=== PATIENT | male | born 1960 | race Caucasian/White ===

== ENCOUNTER 2017-05-27 03:43 | Inpatient (IN) | payer OTHER, MEDICAID, SELFPAY ==
[2017-05-27] VITALS (40 sets, daily range): BP systolic 87–177; BP diastolic 57–86; PULSE 62–99; RESP 12–32; TEMP 36.2–39.4; O2SAT 94–100; BMI 30.7; BMI 29.1; BMI 29.2
--- NOTE | 2017-05-27 03:46 | NURSING ---
RN CALLED FOR EKG, PULLED OLD EKG'S FOR
--- NOTE | 2017-05-27 04:02 | RAD_ITS ---
STUDY: X-RAY CHEST REASON FOR EXAM: Male, 56 years old. Shortness of breath, chest TECHNIQUE: Single AP portable view of the chest. COMPARISON: 05/18/2017. 03/13/2015. FINDINGS: Endotracheal tube tip is superior to the terrence, stable left dual-lead subclavian approach pacemaker, stable low lung volume. There is increased compression of basilar parenchyma bilaterally. The diaphragmatic contour left is indistinct. There is no demonstrated pleural abnormality. Normal size heart. Normal mediastinum and julissa. Normal visualized pulmonary arteries. Normal visualized aortic arch and descending thoracic aorta. Normal visualized thoracic spine. Normal visualized ribs, clavicles, and shoulders. Air distended bowel inferior to the diaphragms. RAD/Chest 1 View (Portable) IMPRESSION: Stable low lung volume. Compression of basilar parenchyma appears increased when compared to previous examination, an inflammatory/infectious process such as pneumonia is not excluded. Electronically Signed: Jenna Paula MD at 4:41 EST , Service support ,
--- NOTE | 2017-05-27 04:02 | EKG12_ITS ---
Test Reason : SOB Blood Pressure : / mmHG Vent. Rate : 075 BPM Atrial Rate : 075 BPM P-R Int : 182 ms QRS Dur : 166 ms QT Int : 412 ms P-R-T Axes : 002 264 036 degrees QTc Int : 460 ms Atrial-sensed ventricular-paced rhythm Abnormal ECG Confirmed by STACY CARROLL ([id number]), commissioning editor BRANDY ROSENBERG ([id number]) on 05/29/2017 12:07:51 PM Referred By: NIKKO Confirmed By:STACY CARROLL
[2017-05-27] MEDS: fentaNYL 100 MCG/2 ML Ampul 50 MCG IV ×3 (04:29→06:17)
[2017-05-27] MEDS: 0.9% Normal Saline 1,000 ML 150 ML IV ×2 (04:29→08:09)
[2017-05-27 04:31] LABS: International Normalized Ratio 1.1; Prothrombin Time (Protime)PT. 13.9 SECONDS (11.7-14.9)
[2017-05-27 04:32] LABS: Partial Thromboplast Time 32.9 Seconds (24.1-36.2)
[2017-05-27 04:38] LABS: Bacteria 0 SEEN /hpf (None Seen); Mucous, Urine 0 SEEN /hpf (<or=2+); Red Blood Cells-Urine 0 SEEN /hpf (0-5); White Blood Cells 0 SEEN /hpf (0-5)
[2017-05-27 04:39] LABS: Absolute Lymphocyte Count 0.86 X10^3/ul (0.83-4.51); Absolute Neutrophil Count 12.3 X10^3/uL (2.0-7.7); Basophil# 0.02 X10^3/uL; Basophil% 0.1 % (0-1); Eosinophil# 0.01 X10^3/uL; Eosinophils% 0.1 % (0-5); Hematocrit 43.1 % (40-54); Hemoglobin 14.3 g/dl (13.0-16.5); Lymphocyte # 0.86 X10^3/ul (4.0); Lymphocyte % 6.2 % (19-41); Mean Corp Hgb Conc 33.2 g/gl (32-36); Mean Corpuscular Hgb 25.9 pg (27.0-32.0); Mean Corpuscular Volume 78.1 fL (80-94); Mean Platelet Vol. 9.6 fl (6.2-12.0); Monocyte# 0.69 X10^3/uL; Neutrophil # 12.28 X10^3/uL (2.7-7.7); Neutrophil % 88.3 % (47-70); Platelet Count 328 K/mm3 (150-450); RBC Distribution Width CV 16.5 % (11.6-14.6); RBC Distribution Width SD 46.5 fl (35.1-43.9); Red Blood Count 5.52 M/mm3 (4.6-6.2); White Blood Count 13.9 K/mm3 (4.4-11.0)
[2017-05-27 04:41] LABS: Color, Urine Yellow (Yellow); Glucose, Dipstick Normal (Normal); Ketone-Dipstick 50 mg/dl (Negative); Leukocyte Esterase-Dipstick Negative /ul (Negative); Nitrite-Dipstick Negative (Negative); Occult Blood-Urine Negative /ul (Negative); Protein-Dipstick Negative (Negative); Urine Bilirubin Dipstick Negative (Negative); Urine Clarity Sl. Cloudy (Clear); Urine Urobilinogen Normal (Normal)
[2017-05-27 04:47] LABS: POSITIVE COUNT NO; POSITIVE DIFFERENTIAL NO; POSITIVE MORPHOLOGY NO
[2017-05-27] MEDS: Acetaminophen 325 MG Tablet 650 MG PO (04:52)
[2017-05-27 05:05] LABS: Squamous Epithelial Cells - UA 0-5 SEEN /hpf (0-5)
[2017-05-27 05:23] LABS: ALB/GLOB Ratio 0.7 RATIO (0.9-2.4); AST(SGOT) 26 U/L (15-37); Alanine Aminotransfer ALT/SGPT 26 U/L (12-78); Albumin, Serum 3.2 g/dL (3.4-5.0); Alkaline Phosphatase 82 U/L (45-117); Anion Gap 13 (5-15); BUN 6 mg/dL (7-18); Calcium,Total 8.8 mg/dL (8.5-10.1); Chloride 98 mmol/L (98-107); Creatinine, Serum < 0.15 mg/dL (0.70-1.30); EST Glomerular Filtration Rate 731 mL/min (>60); Est Glom Filt Rate - Afr Amer 885 mL/min (>60); Estimated Creatinine Clearance 549.93 ml/min; Globulin 4.9 g/dL (2.2-4.2); Glucose 124 mg/dL (70-110); Potassium 4.1 mmol/L (3.5-5.1); Protein, Total 8.1 g/dL (6.4-8.2); Sodium Level 133 mmol/L (136-145)
--- NOTE | 2017-05-27 05:32 | NURSING ---
LACTIC ACID OF 2.0 REPORTED TO . VERBALIZED UNDERSTANDING
--- NOTE | 2017-05-27 05:42 | ED.DCSUM_ITS ---
- ER Visit Summary Date of Service: 05/27/17 Chief Complaint: [] Shortness of breath with right-sided chest pain History of Present Illness: The patient is a 56 M [] recently admitted to the hospital with a negative chest pain workup on the of this month. He went to bed last night and felt shortness of breath in the middle the night. The patient has been battling a respiratory infection for the last 4 days. He is on day 2 of his Z-Jose. He did ingest airborne prior to bed and his did suction quite a bit out from his trachea when he woke up this morning complaining of shortness of breath and chest discomfort. 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 History of coronary artery disease. Last echo was in 2014 showed ejection fraction of 55%. Normally he is not on his ventilator but last night he used it with oxygen. He has been having a nonproductive cough. They called the paramedics who brought him in for further evaluation. He describes right-sided sharp chest discomfort. He does take a daily aspirin and took 1 yesterday. He is on no blood thinners. No history of PE or DVT. He had a d-dimer on the that was negative. Physical Examination: [] Vital signs reviewed are temperature 102.9. Respiratory rate 32. General: Well-nourished generalized paresis secondary to muscular dystrophy. Head: Normocephalic atraumatic Eyes: Pupils equal round and reactive to light extraocular movements intact ENT: TMs clear no hemotympanum no trauma Neck: Nontender full range of motion Cardiovascular: Regular rate rhythm no murmurs normal S1-S2 Respiratory: Mild distress clear to auscultation bilaterally chest nontender Abdomen: Soft nontender nondistended normal bowel sounds no masses Back: Nontender no CVA tenderness Extremities: Nontender chronic paresis. Skin: Normal color no trauma Neuro alert oriented cranial nerves II through XII intact Test Results: [] Emergency Department Course and Treatment: [] Patient placed on the ventilator was calm down his respiratory rate nicely. EKG showed a paced rhythm at 75. Unchanged from prior. Chest x-ray shows suspected bilateral basilar pneumonias. CBC normal except white count 13.9. Chemistries normal except sodium 133. Liver function tests pending. Lites negative. Urinalysis shows nothing acute. Troponin 0 0.5. This is indeterminate. Influenza negative. Lactate 2.0. Blood cultures pending. Patient given oral Tylenol and IV fentanyl. Given IV fluids. Took aspirin at home. At this time I suspect sepsis with pneumonia and respiratory distress. The troponin is indeterminate is likely secondary to cardiac strain from his pneumonia. I have a low suspicion for pulmonary embolism. Patient will be started on antibiotics after speaking with the hospitalist and will be admitted. Patient was given oral Tylenol. Treatment Plan: [] Disposition: [] Impression: [] Healthcare associated pneumonia Respiratory failure requiring ventilation Indeterminate troponin Care time 74 minutes This note was generated with [employer] dictation software. It may contain incorrect words, spelling, and punctuation that were not noted in review of the chart prior to signing ED Disposition - Plan for ED Patient: Chief Complaint: Shortness of Breath Referrals: [facility] Doctor,Out of [Primary Care Provider] -
--- NOTE | 2017-05-27 05:43 | CT_ITS ---
STUDY: CTA CHEST REASON FOR EXAM: Male, 56 years old. Chest pain and shortness of breath. Elevated d-dimer. RADIATION DOSAGE (If Supplied By Facility): CTDIvol = ( 14.79 ) mGy, DLP = ( 555.76 ) mGycm TECHNIQUE: The examination was performed with the intravenous administration of 100 ml of Isovue 370 contrast material. Post-processing of the angiographic images was performed, with multiplanar reformation and 3D reconstruction. Individualized dose optimization techniques were used for this CT. COMPARISON: Comparison is made with prior chest radiograph done earlier in the day. FINDINGS: A tracheostomy tube is seen. Normal enhancement of the main pulmonary artery and right and left pulmonary arteries. Normal enhancement of the bilateral peripheral pulmonary arteries. There is no demonstrated pulmonary embolism. Normal thoracic aorta and visualized great vessels. There is no demonstrated aortic dissection. A left-sided dual-chamber pacemaker is seen. Normal mediastinum. Normal hilar regions. Normal visualized trachea and bronchi. Decreased lung volumes. Infiltration in both lower lobes slightly worse on the right side. Minimal increased markings in the anterior aspect of the right middle lobe. Normal pleura. Normal chest wall structures. Normal osseous structures. Normal visualized upper abdomen. CT/CTA Chest W/WO Contrast IMPRESSION: Infiltration in both lower lobes. There is no evidence of pulmonary embolism. Electronically Signed: Mikey Angeles MD at 8:01 EST Tel [phone], Service support ,
--- NOTE | 2017-05-27 06:31 | PCM.HP.STD ---
Problem List (1) Cardiomyopathy Status: Chronic Qualifiers: Cardiomyopathy type: unspecified Qualified Code(s): I42.9 - Cardiomyopathy, unspecified (2) HTN (hypertension) Status: Chronic Qualifiers: Hypertension type: unspecified Qualified Code(s): I10 - Essential (primary) hypertension (3) Irritable bowel syndrome Status: Chronic Qualifiers: Irritable bowel syndrome type: unspecified Qualified Code(s): K58.9 - Irritable bowel syndrome without diarrhea (4) History of urinary calculi Status: Chronic (5) Hereditary progressive muscular dystrophy Status: Chronic (6) Acute respiratory failure Status: Acute (7) Troponin I above reference range Status: Acute (8) Chest pain Status: Acute Qualifiers: Chest pain type: unspecified Qualified Code(s): R07.9 - Chest pain, unspecified History of Present Illness Date of Admission: 05/27/17 Chief Complaint: chest pain, shortness of breath The patient is a 56 year old male patient recently admitted on 05/18 and discharged on 05/19 for chest pain, presents to the ER by squad for acute chest pain and shortness of breath. The patient is suffering from a progressive form of muscular dystrophy. He has a cardiac pacemaker in place for known arrhythmia and cardiomyopathy. He has a tracheostomy tube in place and has not needed to use his home ventilator at until recently. Despite being on his home ventilator this evening he woke up struggling to breath with chest pain. The patient is alert and communicating although his voice is quite weak as he is on the ventilator. Troponin is now elevated at 0.51. Chest X-ray shows no definitive infiltrate however, there is blunting of costophrenic angles and WBC count is elevated. Due to the nature of his chest pain which he points to his right lower chest, a CTA of the chest was ordered and will be done on his way to transfer to the ICU. Past Medical History Past Medical History (Chronic Problems): Chronic Problems Cardiomyopathy (Chronic) HTN (hypertension) (Chronic) Irritable bowel syndrome (Chronic) History of urinary calculi (Chronic) Hereditary progressive muscular dystrophy (Chronic) Allergies No Known Allergies Allergy (Verified 05/27/17 03:49) Home Medications: Ambulatory Orders Medication Instructions Recorded Sertraline HCl [Zoloft] 50 mg PO DAILY 04/17/14 Albuterol Aerosols [Ventolin 2.5 mg INHALATION Q4H PRN #25 vial 07/01/14 Aerosols] BusPIRone [Buspar] 15 mg PO BID 07/01/14 Cholecalciferol (VIT D3) [Vitamin 2,000 unit PO DAILY 07/01/14 D3] Glycopyrrolate 1.5 mg PO BID 07/01/14 Lisinopril [Zestril] 5 mg PO DAILY 07/01/14 Montelukast [Singulair] 10 mg PO DAILY 08/11/14 Morphine Sulfate [Morphine Sulfate 30 mg PO BID 08/11/14 ER] Opium Tincture 0.4 ml GT QODAY 08/11/14 Aspirin [Aspirin, Baby] 81 mg PO DAILY@0800 03/09/15 Cyclobenzaprine [Flexeril] 10 mg PO TID PRN PRN 03/09/15 Hydrocodone/Acetaminophen 1 each PO TID PRN PRN 03/09/15 [Hydrocodon-Acetaminophn 10-325] Senna [Senokot] 1 tablet PO BID 03/09/15 Pantoprazole Sodium [Protonix] 40 mg PO DAILY #90 tab 05/19/17 Surgical History: noncontributory Smoking Status: Never smoker - *Family History Maternal History Items: No pertinent history Paternal History Items: No pertinent history Review of Systems Constitutional: Reports: Chills, Malaise, Weakness, Fatigue. Denies: Fever, Weight Change HEENT: Denies: Head Aches, Sinus Congestion, Sinus Drainage Cardiovascular: Reports: Chest Pain. Denies: Palpitations Respiratory: Reports: Shortness of breath at rest, Sputum production. Denies: Cough Gastrointestinal: Denies: Abdominal Pain, Nausea, Vomiting Genitourinary: Denies: Dysuria Musculoskeletal: Denies: Joint Pain, Joint Tenderness Skin: Denies: Rash, Wounds Neurological: Denies: Numbness, Tingling, Focal weakness Psychiatric: Reports: Anxiety. Denies: Depression, Homicidal Ideations, Suicidal Ideations Hematologic/ Lymphatic: Denies: Easy Bruising, Easy Bleeding VTE Information - Inpt Only VTE Present on Admission: No - CTA ordered and result pending at admission VTE Mechan Device Prophylaxis: None VTE Pharm Prophylaxis ordered?: Yes - Physical Exam General: Alert, Oriented x3, Cooperative, - - trach in place on ventilator HEENT: Atraumatic, Normocephalic Neck: Supple Lungs: Normal air movement, No rhonchi, No wheeze, No rales, - - coarse lung sounds Cardiovascular: Regular rate, Normal S1, Normal S2, No murmurs Abdomen: Bowel Sounds Present, Soft, Non Tender, Obese Extremities: No edema Skin: No rashes Musculoskeletal: No Tenderness to Palpation of Joints or Extremities Neurological: Neuro grossly intact Psych/Mental Status: Normal Affect, Appropriate Vital Signs Temp Pulse Resp BP Pulse Ox 102.9 F H 62 17 120/78 96 05/27/17 03:44 05/27/17 06:20 05/27/17 06:20 05/27/17 06:20 05/27/17 06:20 Oxygen Flow Rate 0 Oxygen Delivery Method Mechanical Ventilator Weight: 207 lb 10.807 oz Body Mass Index (BMI) 30.7 Microbiology Past 72 Hours 05/27/17 04:00 Influenza Types A,B Direct FA (FCO) - Final Mucosa - Nose Laboratory Tests Past 24 Hrs 05/27/17 05/27/17 05/27/17 04:15 04:15 04:15 WBC 13.9 H RBC 5.52 Hgb 14.3 Hct 43.1 MCV 78.1 L MCH 25.9 L MCHC 33.2 RDW 16.5 H RDW Differential 46.5 H Plt Count 328 MPV 9.6 Immature Gran % (Auto) 0.300 Neut % (Auto) 88.3 H Lymph % (Auto) 6.2 L [place] % (Auto) 5.0 Eos % (Auto) 0.1 Baso % (Auto) 0.1 Absolute Neuts (auto) 12.3 H Absolute Lymphs (auto) 0.86 Total Counted Not Reportable PT 13.9 INR 1.1 APTT 32.9 Sodium Cancelled Potassium Cancelled Chloride Cancelled Carbon Dioxide Cancelled Anion Gap Cancelled BUN Cancelled Creatinine Cancelled Estim Creat Clear Calc Cancelled Est GFR (MDRD) Af Amer Cancelled Est GFR (MDRD) Non-Af Cancelled BUN/Creatinine Ratio Cancelled Glucose Cancelled Lactic Acid Calcium Cancelled Total Bilirubin Cancelled AST Cancelled ALT Cancelled Alkaline Phosphatase Cancelled Troponin I Cancelled Total Protein Cancelled Albumin Cancelled Globulin Cancelled Albumin/Globulin Ratio Cancelled Urine Color Urine Clarity Urine pH Ur Specific [place] Urine Protein Urine Glucose (UA) Urine Ketones Urine Occult Blood Urine Nitrite Urine Bilirubin Urine Urobilinogen Ur Leukocyte Esterase Urine RBC Urine WBC Ur Squamous Epith Cells Urine Bacteria Urine Mucus 05/27/17 05/27/17 05/27/17 04:15 04:32 04:45 WBC RBC Hgb Hct MCV MCH MCHC RDW RDW Differential Plt Count MPV Immature Gran % (Auto) Neut % (Auto) Lymph % (Auto) [place] % (Auto) Eos % (Auto) Baso % (Auto) Absolute Neuts (auto) Absolute Lymphs (auto) Total Counted PT INR APTT Sodium 133 L Potassium 4.1 Chloride 98 Carbon Dioxide 22.0 Anion Gap 13 BUN 6 L Creatinine < 0.15 L Estim Creat Clear Calc 549.93 Est GFR (MDRD) Af Amer 885 Est GFR (MDRD) Non-Af 731 BUN/Creatinine Ratio TNP Glucose 124 H Lactic Acid Cancelled Calcium 8.8 Total Bilirubin 0.60 AST 26 ALT 26 Alkaline Phosphatase 82 Troponin I 0.51 H Total Protein 8.1 Albumin 3.2 L Globulin 4.9 H Albumin/Globulin Ratio 0.7 L Urine Color Yellow Urine Clarity Sl. Cloudy Urine pH 6.0 Ur Specific [place] 1.010 Urine Protein Negative Urine Glucose (UA) Normal Urine Ketones 50 H Urine Occult Blood Negative Urine Nitrite Negative Urine Bilirubin Negative Urine Urobilinogen Normal Ur Leukocyte Esterase Negative Urine RBC 0 SEEN Urine WBC 0 SEEN Ur Squamous Epith Cells 0-5 SEEN Urine Bacteria 0 SEEN Urine Mucus 0 SEEN 05/27/17 04:45 WBC RBC Hgb Hct MCV MCH MCHC RDW RDW Differential Plt Count MPV Immature Gran % (Auto) Neut % (Auto) Lymph % (Auto) [place] % (Auto) Eos % (Auto) Baso % (Auto) Absolute Neuts (auto) Absolute Lymphs (auto) Total Counted PT INR APTT Sodium Potassium Chloride Carbon Dioxide Anion Gap BUN Creatinine Estim Creat Clear Calc Est GFR (MDRD) Af Amer Est GFR (MDRD) Non-Af BUN/Creatinine Ratio Glucose Lactic Acid 2.0 Calcium Total Bilirubin AST ALT Alkaline Phosphatase Troponin I Total Protein Albumin Globulin Albumin/Globulin Ratio Urine Color Urine Clarity Urine pH Ur Specific [place] Urine Protein Urine Glucose (UA) Urine Ketones Urine Occult Blood Urine Nitrite Urine Bilirubin Urine Urobilinogen Ur Leukocyte Esterase Urine RBC Urine WBC Ur Squamous Epith Cells Urine Bacteria Urine Mucus Assessment/Plan Assessment - Chest Pain - acute respiratory failure Chronic Problems Cardiomyopathy (Chronic) HTN (hypertension) (Chronic) Irritable bowel syndrome (Chronic) History of urinary calculi (Chronic) Hereditary progressive muscular dystrophy (Chronic) Plan - admit to ICU. Continue ventilator support - initiate Vancomycin and Zosyn and plan to de-escalate antibiotics in a reasonable period of time - CBC, BMP, repeat chest X-ray in am - continue current home ventilator setting - Breathing treatments prn (Duo neb) - Consult ICU pit laborer - cycle cardiac enzymes. Patient has a stable bundle branch block and a pacemaker making interpretation of EKG for acute changes difficult - start with prophylactic Lovenox dose, may change if CTA chest indicates otherwise - continue routine home medications - current vent set at rate 15, TV 500, FIO2 of 30% and PEEP of 12 Code Visit Inpatient E&M: 68078 Init Hosp L3
--- NOTE | 2017-05-27 07:02 | NURSING ---
ICU 7 ACUTE RESP FAILURE, KALI JOHNSTON
--- NOTE | 2017-05-27 08:05 | PN_ITS ---
Subjective: Patient was seen and examined in the ICU. Admitted just this morning. Patient complains of chest discomfort, denies any nausea or dizziness or palpitations. Vitals reviewed and noted fevers more than 100.6 F. Labs reviewed, noted elevated troponins Vitals/I&O's: Vital Signs Temp Pulse Resp BP Pulse Ox 100 F H 65 20 H 120/79 97 05/27/17 06:46 05/27/17 07:00 05/27/17 07:00 05/27/17 07:00 05/27/17 07:00 Oxygen Delivery Method Mechanical Ventilator Weight: 89.3 kg Body Mass Index (BMI) 29.1 General: Alert, Oriented x3, Cooperative HEENT: Atraumatic, PERRLA, EOMI, Normocephalic Oral: Dry Mucosa Neck: Supple, No JVD, Negative Carotid Bruits, - - Tracheostomy Lungs: Normal air movement, Diminished Cardiovascular: Regular rate, Regular Rhythm, Normal S1, Normal S2, No murmurs Abdomen: Bowel Sounds Present, Soft, Non Tender, Non-Distended, No Hepato- splenomegaly Extremities: No edema Skin: No rashes Musculoskeletal: No Tenderness to Palpation of Joints or Extremities Neurological: Cranial nerves II-XII grossly intact Psych/Mental Status: Normal Affect, Appropriate Laboratory Results 05/27/17 07:45: MRSA (PCR) Pending Current Medications Aspirin (Aspirin, Baby) 81 mg PO DAILY@0800 [facility] Buspirone HCl (Buspar) [address] [facility] Cholecalciferol (Vitamin D) 2,[address] [facility] Cyclobenzaprine HCl (Flexeril) 10 mg PO TID PRN PRN PRN Reason: SPASMS Glycopyrrolate (Robinul) 1.[address] [facility] Sodium Chloride () 1,000 mls @ 150 mls/hr IV .Q6H40M [facility] Last Admin: 05/27/17 04:29 Dose: 150 mls/hr Vancomycin HCl 2,000 mg/ (Sodium Chloride) 540 mls @ 250 mls/hr IV X1 ONE Stop: 05/27/17 08:29 Piperacillin Sod/Tazobactam Sod (Zosyn) 3.375 gm in 50 mls @ 12.5 mls/hr IV Q8 [facility] Vancomycin HCl 1,500 mg/ (Dextrose) 280 mls @ 250 mls/hr IV RX TO DOSE ONE Stop: 05/27/17 08:54 Lisinopril (Zestril) [address] [facility] Magnesium Hydroxide (Milk Of Magnesia) 30 ml PO DAILY PRN PRN PRN Reason: Constipation Montelukast Sodium (Singulair) [address] [facility] Morphine Sulfate (Morphine) 2 - 4 mg IV Q3H PRN PRN PRN Reason: Severe Pain (pain scale 6-10) Morphine Sulfate (Morphine) 1 - 2 mg IV Q4H PRN PRN PRN Reason: Moderate Pain (pain scale 4-5) Non-Formulary Medication (Morphine Sulfate [Morphine Sulfate Er]) [address] [facility] Ondansetron HCl (Zofran) 4 mg IV Q8H PRN PRN PRN Reason: NAUSEA Pantoprazole Sodium (Protonix) [address] [facility] Senna (Senokot) [address] [facility] Sertraline HCl (Zoloft) [address] [facility] Assessment/Plan 56 year old M with a past medical history of hereditary progressive muscular dystrophy, cardiomyopathy, tracheostomy, s/p pacemaker, hypertension, chronic pain syndrome (narcotic dependent) recently admitted on 05/18/2017 and discharged on 05/19/2017 with chest pain. Patient is reported currently on Z- Jose for upper respiratory infection. Comes in to the ED with complaints of chest pain and respiratory distress. The EMS was called to his house with patient's was found suctioning tracheostomy. 1. Chest pain, likely cardiac vs HCAP. Troponins are elevated, CT of the chest shows bilateral infiltrates worse on the right, suspect possible aspiration pneumonia also, admitted to the ICU, vitals are stable for temperature of more than 100.6F, WBC elevated at 13.9, on aspirin, vancomycin. Influenza screen negative, blood cultures, urine cultures, urine streptococcal antigen are pending Plan: Continue management in the ICU, trend troponins, continue vancomycin, and zosyn, speech therapy consult, monitor vitals closely 2. Elevated troponins, likely due to demand ischemia, last 2D echo was normal, would monitor with repeat EKG and troponins, will get cardiology involved if troponins continue to be elevated 3. Hypertension, controlled, on lisinopril, will continue to monitor with holding parameters for systolic blood pressure less than 110 4. Status post pacemaker 5. Status post tracheostomy, on mechanical ventilation, further recommendations and management by plaster machine operator 6. Progressive hereditary muscular dystrophy 7. DVT PPx - Lovenox SC
--- NOTE | 2017-05-27 08:08 | EKG12_ITS ---
Test Reason : CP Blood Pressure : / mmHG Vent. Rate : 070 BPM Atrial Rate : 096 BPM P-R Int : 000 ms QRS Dur : 192 ms QT Int : 492 ms P-R-T Axes : 052 265 069 degrees QTc Int : 531 ms AV dual-paced rhythm Abnormal ECG When compared with ECG of 27-MAY-2017 03:44, MANUAL COMPARISON REQUIRED, DATA IS UNCONFIRMED Confirmed by STACY CARROLL ([id number]), writer editor BRANDY ROSENBERG ([id number]) on 05/29/2017 2:12:56 PM Referred By: KEVIN Confirmed By:STACY CARROLL
[2017-05-27] MEDS: 0.9% NaCl Peripheral Flush Adult/Peds IV ×3 (09:39→23:57)
--- NOTE | 2017-05-27 10:06 | CASEMGMT ---
See RN CM Assessment. DC PLAN: DC PLAN: return home on discharge. Pt has home ventilator, Home health through [facility]. Per nurse, they provide 64 hours/week of personal and nursing care, including ventilator management while works. On dc, they request notification of discharge and fax dc summary. PH: FX: -A.Onofre PAYNEN SHANNAN ACM
[2017-05-27 10:21] LABS: M R Staph aureus DNA By PCR Negative (Negative); Probe Check PASS; Specimen Processing Control PASS
[2017-05-27] MEDS: Chlorhexidine 15 ML PO ×2 (11:11→21:48)
[2017-05-27] MEDS: Aspirin 300 MG Suppository RECTAL (11:52)
[2017-05-27] MEDS: Piperacil/Tazobactam 3.375 GM/50 ML ML IV ×2 (13:04→21:47)
--- NOTE | 2017-05-27 16:23 | PCM.CON.CC ---
Problem List (1) Cardiomyopathy Status: Chronic Qualifiers: Cardiomyopathy type: unspecified Qualified Code(s): I42.9 - Cardiomyopathy, unspecified (2) HTN (hypertension) Status: Chronic Qualifiers: Hypertension type: unspecified Qualified Code(s): I10 - Essential (primary) hypertension (3) Irritable bowel syndrome Status: Chronic Qualifiers: Irritable bowel syndrome type: unspecified Qualified Code(s): K58.9 - Irritable bowel syndrome without diarrhea (4) History of urinary calculi Status: Chronic (5) Hereditary progressive muscular dystrophy Status: Chronic (6) Acute respiratory failure Status: Acute (7) Troponin I above reference range Status: Acute (8) Chest pain Status: Acute Qualifiers: Chest pain type: unspecified Qualified Code(s): R07.9 - Chest pain, unspecified Reason for Consult Date of Consultation: 05/27/17 - Late entry Reason for Consultation: Respiratory failure History of Present Illness: The patient is a 56 year old M, with past medical history listed below, who presented to [facility] on 05/27/2017 secondary to being continued shortness of breath. 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 At that time, patient decided to do an outpatient workup. However, upon going home patient had initiated trilogy therapy and over the last 2 days states that he was unable to take it off. Patient's voice was weak, but he was able to tolerate minimal vocalization with balloon inflated. A chest x-ray was obtained in the ER that was not showing a definitive infiltrate. Patient obtained a CT scan on the way to the intensive care unit. The CT scan was personally reviewed and does show bilateral infiltrates. Patient does report URI type symptoms. Patient reports worsening of baseline myopathy. Patient denies any recent change in diet except for an inability to eat secondary to a continuous need for ventilatory support limiting his ability to eat. Patient does report generalized body aches. No obvious bleeding has been reported. Patient reports similar type presentation approximately 3 years ago. Patient was hospitalized for a week and did require LTAC placement. Patient has been at home and relatively well until recent complications. Patient does have a pacemaker, but is unclear if he has any cardiomyopathy. Patient has been using a trilogy ventilator at home for several years without complication. Past Medical History Past Medical History (Chronic Problems): Chronic Problems Cardiomyopathy (Chronic) HTN (hypertension) (Chronic) Irritable bowel syndrome (Chronic) History of urinary calculi (Chronic) Hereditary progressive muscular dystrophy (Chronic) Allergies No Known Allergies Allergy (Verified 05/27/17 03:49) Home Medications: Ambulatory Orders Medication Instructions Recorded Sertraline HCl [Zoloft] 50 mg PO DAILY 04/17/14 Albuterol Aerosols [Ventolin 2.5 mg INHALATION Q4H PRN #25 vial 07/01/14 Aerosols] BusPIRone [Buspar] 15 mg PO BID 07/01/14 Cholecalciferol (VIT D3) [Vitamin 2,000 unit PO DAILY 07/01/14 D3] Glycopyrrolate 1.5 mg PO BID 07/01/14 Lisinopril [Zestril] 5 mg PO DAILY 07/01/14 Montelukast [Singulair] 10 mg PO DAILY 08/11/14 Morphine Sulfate [Morphine Sulfate 30 mg PO BID 08/11/14 ER] Opium Tincture 0.4 ml GT QODAY 08/11/14 Aspirin [Aspirin, Baby] 81 mg PO DAILY@0800 03/09/15 Cyclobenzaprine [Flexeril] 10 mg PO TID PRN PRN 03/09/15 Hydrocodone/Acetaminophen 1 each PO TID PRN PRN 03/09/15 [Hydrocodon-Acetaminophn 10-325] Senna [Senokot] 1 tablet PO BID 03/09/15 Pantoprazole Sodium [Protonix] 40 mg PO DAILY #90 tab 05/19/17 Surgical History: noncontributory Smoking Status: Never smoker - *Family History Maternal History Items: No pertinent history Paternal History Items: No pertinent history Review of Systems Comment: The HPI, otherwise negative ?10 systems. Objective: Echocardiogram completed in 2015 did show preserved ejection fraction of 55%. CT scan was personally reviewed. This did show bilateral infiltrates. - Physical Exam General: Alert, Cooperative, No apparent distress, - - Appears older than stated age. Very weak voice. Good ventilator synchrony. HEENT: Atraumatic, PERRLA, EOMI, Normocephalic, - - No scleral icterus or injection noted. Oral: Moist Mucosa, No Gingival or Mucosal Lesions/ Ulcerations Neck: Supple, No JVD, No Nodes, Trachea Midline, - - Tracheostomy is clean, dry and intact. No surrounding erythema is appreciated. Lungs: No rhonchi, No wheeze, No rales, Diminished, - - Fair effort Cardiovascular: Regular rate, Regular Rhythm, Normal S1, Normal S2, No murmurs, No rub noted, No Gallop Abdomen: Bowel Sounds Present, Soft, Non Tender, Non-Distended, Obese Extremities: No clubbing, No cyanosis, Capillary Refill Less than 3 Seconds, Edema Skin: No rashes, No breakdown Musculoskeletal: Muscle Wasting Lymphatic: No Cervical, Supraclavicular, or Inguinal Adenopathy Neurological: - - Minimal movement of extremities. Toes do move independently. Actively tracks around the room. Positive gag and cough reflex is noted. Psych/Mental Status: Normal Affect, Appropriate Vital Signs Temp Pulse Resp BP Pulse Ox 36.5 C L 68 13 103/62 99 05/27/17 14:00 05/27/17 15:30 05/27/17 15:30 05/27/17 15:00 05/27/17 15:30 Oxygen Delivery Method Mechanical Ventilator Weight: 89.3 kg Body Mass Index (BMI) 29.1 Intake and Output for Last 24 Hours 05/25/17 05/26/17 05/27/17 23:59 23:59 23:59 Intake Total 671 / 671 Balance 671 / 671 Laboratory Tests Past 24 Hrs 05/27/17 05/27/17 05/27/17 07:45 08:40 12:40 Troponin I 1.40 H* 1.05 H* MRSA (PCR) Negative Laboratory Tests 05/27/17 05/27/17 05/27/17 04:15 04:15 04:15 WBC 13.9 H RBC 5.52 Hgb 14.3 Hct 43.1 MCV 78.1 L MCH 25.9 L MCHC 33.2 RDW 16.5 H RDW Differential 46.5 H Plt Count 328 MPV 9.6 Immature Gran % (Auto) 0.300 Neut % (Auto) 88.3 H Lymph % (Auto) 6.2 L Gilmer % (Auto) 5.0 Eos % (Auto) 0.1 Baso % (Auto) 0.1 Absolute Neuts (auto) 12.3 H Absolute Lymphs (auto) 0.86 Total Counted Not Reportable PT 13.9 INR 1.1 APTT 32.9 Sodium Cancelled Potassium Cancelled Chloride Cancelled Carbon Dioxide Cancelled Anion Gap Cancelled BUN Cancelled Creatinine Cancelled Estim Creat Clear Calc Cancelled Est GFR (MDRD) Af Amer Cancelled Est GFR (MDRD) Non-Af Cancelled BUN/Creatinine Ratio Cancelled Glucose Cancelled Lactic Acid Calcium Cancelled Total Bilirubin Cancelled AST Cancelled ALT Cancelled Alkaline Phosphatase Cancelled Troponin I Cancelled Total Protein Cancelled Albumin Cancelled Globulin Cancelled Albumin/Globulin Ratio Cancelled Urine Color Urine Clarity Urine pH Ur Specific Bentley Urine Protein Urine Glucose (UA) Urine Ketones Urine Occult Blood Urine Nitrite Urine Bilirubin Urine Urobilinogen Ur Leukocyte Esterase Urine RBC Urine WBC Ur Squamous Epith Cells Urine Bacteria Urine Mucus MRSA (PCR) 05/27/17 05/27/17 05/27/17 04:15 04:32 04:45 WBC RBC Hgb Hct MCV MCH MCHC RDW RDW Differential Plt Count MPV Immature Gran % (Auto) Neut % (Auto) Lymph % (Auto) Gilmer % (Auto) Eos % (Auto) Baso % (Auto) Absolute Neuts (auto) Absolute Lymphs (auto) Total Counted PT INR APTT Sodium 133 L Potassium 4.1 Chloride 98 Carbon Dioxide 22.0 Anion Gap 13 BUN 6 L Creatinine < 0.15 L Estim Creat Clear Calc 549.93 Est GFR (MDRD) Af Amer 885 Est GFR (MDRD) Non-Af 731 BUN/Creatinine Ratio TNP Glucose 124 H Lactic Acid Cancelled Calcium 8.8 Total Bilirubin 0.60 AST 26 ALT 26 Alkaline Phosphatase 82 Troponin I 0.51 H Total Protein 8.1 Albumin 3.2 L Globulin 4.9 H Albumin/Globulin Ratio 0.7 L Urine Color Yellow Urine Clarity Sl. Cloudy Urine pH 6.0 Ur Specific Bentley 1.010 Urine Protein Negative Urine Glucose (UA) Normal Urine Ketones 50 H Urine Occult Blood Negative Urine Nitrite Negative Urine Bilirubin Negative Urine Urobilinogen Normal Ur Leukocyte Esterase Negative Urine RBC 0 SEEN Urine WBC 0 SEEN Ur Squamous Epith Cells 0-5 SEEN Urine Bacteria 0 SEEN Urine Mucus 0 SEEN MRSA (PCR) 05/27/17 05/27/17 05/27/17 04:45 07:45 08:40 WBC RBC Hgb Hct MCV MCH MCHC RDW RDW Differential Plt Count MPV Immature Gran % (Auto) Neut % (Auto) Lymph % (Auto) Gilmer % (Auto) Eos % (Auto) Baso % (Auto) Absolute Neuts (auto) Absolute Lymphs (auto) Total Counted PT INR APTT Sodium Potassium Chloride Carbon Dioxide Anion Gap BUN Creatinine Estim Creat Clear Calc Est GFR (MDRD) Af Amer Est GFR (MDRD) Non-Af BUN/Creatinine Ratio Glucose Lactic Acid 2.0 Calcium Total Bilirubin AST ALT Alkaline Phosphatase Troponin I 1.40 H* Total Protein Albumin Globulin Albumin/Globulin Ratio Urine Color Urine Clarity Urine pH Ur Specific Bentley Urine Protein Urine Glucose (UA) Urine Ketones Urine Occult Blood Urine Nitrite Urine Bilirubin Urine Urobilinogen Ur Leukocyte Esterase Urine RBC Urine WBC Ur Squamous Epith Cells Urine Bacteria Urine Mucus MRSA (PCR) Negative 05/27/17 12:40 WBC RBC Hgb Hct MCV MCH MCHC RDW RDW Differential Plt Count MPV Immature Gran % (Auto) Neut % (Auto) Lymph % (Auto) Gilmer % (Auto) Eos % (Auto) Baso % (Auto) Absolute Neuts (auto) Absolute Lymphs (auto) Total Counted PT INR APTT Sodium Potassium Chloride Carbon Dioxide Anion Gap BUN Creatinine Estim Creat Clear Calc Est GFR (MDRD) Af Amer Est GFR (MDRD) Non-Af BUN/Creatinine Ratio Glucose Lactic Acid Calcium Total Bilirubin AST ALT Alkaline Phosphatase Troponin I 1.05 H* Total Protein Albumin Globulin Albumin/Globulin Ratio Urine Color Urine Clarity Urine pH Ur Specific Bentley Urine Protein Urine Glucose (UA) Urine Ketones Urine Occult Blood Urine Nitrite Urine Bilirubin Urine Urobilinogen Ur Leukocyte Esterase Urine RBC Urine WBC Ur Squamous Epith Cells Urine Bacteria Urine Mucus MRSA (PCR) Clinical Impression(s) from Imaging Studies Chest X-Ray 05/27/17 04:02 IMPRESSION: Stable low lung volume. Compression of basilar parenchyma appears increased when compared to previous examination, an inflammatory/infectious process such as pneumonia is not excluded. Electronically Signed: Jenna Paula MD at 4:41 EST , Service support , Chest CTA 05/27/17 05:43 IMPRESSION: Infiltration in both lower lobes. There is no evidence of pulmonary embolism. Electronically Signed: Mikey Angeles MD at 8:01 EST Tel [phone], Service support , Assessment/Plan RECOMMENDATIONS: 1. Await razo culture, continue empiric antibiotics 2. No vancomycin required secondary to negative swab 3. Continue baseline blood pressure medications 4. Breaks off ventilator as tolerated 5. Aggressive PT/OT/ST 6. Wean oxygen as tolerated IMPRESSIONS: 1. Acute on chronic respiratory failure secondary to progressive muscular dystrophy/pneumonia CT scan of the chest does show bilateral infiltrates. Patient also has a leukocytosis and reported fever on presentation. Patient had a nasal swab that was negative for MRSA, so vancomycin is likely not necessary. Patient is on broad-spectrum antibiotics otherwise. Cultures are currently pending. Continue mechanical support overnight. Attempt breaks as tolerated tomorrow morning. Patient will need aggressive PT/OT/ST given his underlying Hewitt's muscular dystrophy. Steroids are not likely necessary as patient has not had a history of obstructive lung disease and this would exacerbate patient's underlying myopathy. 2. Type II non-ST elevation IN No reported hypoxemia, but patient does present requiring continuous mechanical ventilation, which is different than his baseline. Patient has had a pacemaker [place] [address] Sanchez. Troponins appear to be trending down. Defer to hospitalist on whether Dr. Lopez should see the patient again. Patient may benefit from heart catheterization in the future. 3. Depression/hypertension/chronic pain syndrome/debility Dr. Brown care, management, recovery and prognosis. Likely okay to continue with baseline medications. Code Visit Inpatient E&M: 68012 Init Hosp L3
[2017-05-28] VITALS (42 sets, daily range): BP systolic 94–144; BP diastolic 54–86; PULSE 62–85; RESP 10–24; TEMP 36.3–36.9; O2SAT 97–100
[2017-05-28] MEDS: Ipratropium/Albuterol Sulfate 3 ML AMPUL.NEB INHALATION ×3 (00:14→20:26)
--- NOTE | 2017-05-28 03:58 | NURSING ---
Offered to perform trach care at this time. Patient communicated he only does trach care once a day and refuses trach care at this time, stating he will wait until during the day for trach care to be done.
[2017-05-28] MEDS: 0.9% NaCl Peripheral Flush Adult/Peds IV ×4 (04:11→11:07)
[2017-05-28] MEDS: 0.9% Normal Saline 1,000 ML 75 ML IV (04:12)
[2017-05-28 04:30] LABS: Hemoglobin 11.6 g/dl (13.0-16.5); Mean Corp Hgb Conc 31.4 g/gl (32-36); Mean Corpuscular Hgb 24.9 pg (27.0-32.0); Mean Corpuscular Volume 79.6 fL (80-94); Mean Platelet Vol. 9.2 fl (6.2-12.0); Platelet Count 215 K/mm3 (150-450); RBC Distribution Width CV 15.9 % (11.6-14.6); Red Blood Count 4.65 M/mm3 (4.6-6.2); Scan Indicated on CBC? Y/N NO; White Blood Count 10.2 K/mm3 (4.4-11.0)
--- NOTE | 2017-05-28 04:30 | NURSING ---
This RN noted patient has only voided 75 mLs for this shift. This RN asked patient multiple times throughout the night if he needed to urinate, patient responded no. He stated that he does not pee much at home. This RN suggested a bladder scan, patient refused.
[2017-05-28 05:00] LABS: Anion Gap 14 (5-15); BUN 8 mg/dL (7-18); Calcium,Total 8.1 mg/dL (8.5-10.1); Chloride 103 mmol/L (98-107); Creatinine, Serum < 0.15 mg/dL (0.70-1.30); EST Glomerular Filtration Rate 731 mL/min (>60); Est Glom Filt Rate - Afr Amer 885 mL/min (>60); Glucose 70 mg/dL (70-110); Potassium 3.3 mmol/L (3.5-5.1); Sodium Level 138 mmol/L (136-145)
[2017-05-28] MEDS: Piperacil/Tazobactam 3.375 GM/50 ML ML IV ×3 (05:13→21:03)
--- NOTE | 2017-05-28 05:55 | RAD_ITS ---
STUDY: X-RAY CHEST REASON FOR EXAM: Male, 56 years old. Shortness of breath. TECHNIQUE: Single AP portable view of the chest. COMPARISON: Comparison is made with prior study dated May 27, 2017. FINDINGS: A tracheostomy tube is in situ. The tip is at 6.7 cm proximal to the terrence. EKG electrodes are seen. Persistent atelectasis and/or infiltrate at the left lung base. Mild increased markings at the right lung base. Small left pleural effusion. A left-sided dual-chamber pacemaker is seen. Normal mediastinum and julissa. Normal visualized pulmonary arteries. Normal visualized aortic arch and descending thoracic aorta. Normal visualized thoracic spine. Normal visualized ribs, clavicles, and shoulders. There is no demonstrated abnormality of the visualized soft tissue structures of the upper abdomen. RAD/Chest 1 View (Portable) IMPRESSION: Patchy left basilar infiltrate and/or atelectasis with a small left pleural effusion. Mild increased markings at the right lung base. Electronically Signed: Mikey Angeles MD at 9:21 EST Tel [phone], Service support ,
--- NOTE | 2017-05-28 08:52 | PCM.PN.HOSP ---
Subjective: Patient was seen and examined. He says his pain is not much controlled and needs something to relax. He was just medicated with 2 mg of morphine 10 minutes prior to my exam. Discussed with his nurse, patient is refusing to swallow, so not eating and not taking any p.o. pills. Is on mechanical ventilation since admission; patient was on mechanical ventilation at night at home. Denies any chest pain or fever or chills. Vitals was reviewed and was stable. Chest x-ray this morning is pending Objective: PHYSICAL EXAM: General: Alert, Oriented x3, Cooperative, obese, not pale, not jaundiced. HEENT: Atraumatic, PERRLA, EOMI, Normocephalic Oral: Dry Mucosa Neck: Supple, No JVD, Negative Carotid Bruits, - - Tracheostomy Lungs: Normal air movement, Diminished Cardiovascular: Regular rate, Regular Rhythm, Normal S1, Normal S2, No murmurs Abdomen: Bowel Sounds Present, Soft, Non Tender, Non-Distended, No Hepato-splenomegaly Extremities: No edema Skin: No rashes Musculoskeletal: No Tenderness to Palpation of Joints or Extremities Neurological: Cranial nerves II-XII grossly intact Psych/Mental Status: Normal Affect, Appropriate Vitals/I&O's: Vital Signs Temp Pulse Resp BP Pulse Ox 98.5 F 74 12 117/72 99 05/28/17 08:00 05/28/17 08:00 05/28/17 08:00 05/28/17 08:00 05/28/17 08:00 Oxygen Delivery Method Mechanical Ventilator Weight: 91.3 kg Body Mass Index (BMI) 29.1 Intake and Output for Last 24 Hours 05/26/17 05/27/17 05/28/17 23:59 23:59 23:59 Intake Total 860 / 860 1048.8 / 1048.8 Output Total 550 / 550 75 / 75 Balance 310 / 310 973.8 / 973.8 Microbiology Past 72 Hours 05/28/17 04:20 Sputum, Induced/Lukens Gram Stain - Final Laboratory Results 05/27/17 07:45: MRSA (PCR) Negative 05/27/17 08:40: Troponin I 1.40 H* 05/27/17 12:40: Troponin I 1.05 H* 05/27/17 20:40: Troponin I 0.70 H* 05/28/17 04:20: WBC 10.2, RBC 4.65, Hgb 11.6 L, Hct 37.0 L, MCV 79.6 L, MCH 24.9 L, MCHC 31.4 L, RDW 15.9 H, RDW Differential 46.0 H, Plt Count 215, MPV 9.2 05/28/17 04:20: Sodium 138, Potassium 3.3 L, Chloride 103, Carbon Dioxide 21.0, Anion Gap 14, BUN 8, Creatinine < 0.15 L, Estim Creat Clear Calc 532.04, Est GFR (MDRD) Af Amer 885, Est GFR (MDRD) Non-Af 731, BUN/Creatinine Ratio TNP, Glucose 70, Calcium 8.1 L Current Medications Albuterol/Ipratropium (Duoneb) 3 ml INHALATION Q4H.RT PRN PRN Reason: SOB &/OR WHEEZING Last Admin: 05/28/17 00:14 Dose: 3 ml Aspirin (Aspirin, Baby) 81 mg PO DAILY@0800 [facility] Last Admin: 05/27/17 09:59 Dose: Not Given Buspirone HCl (Buspirone Hcl) 15 mg PO BID [facility] Last Admin: 05/27/17 21:24 Dose: Not Given Chlorhexidine Gluconate () 15 ml PO BID [facility] Last Admin: 05/27/17 21:48 Dose: 15 ml Chlorhexidine Gluconate () 1 each TOPICAL DAILY [facility] Cholecalciferol (Vitamin D) 2,000 unit PO DAILY [facility] Last Admin: 05/27/17 12:05 Dose: Not Given Cyclobenzaprine HCl (Flexeril) 10 mg PO TID PRN PRN PRN Reason: SPASMS Diphenhydramine HCl (Benadryl) 25 mg PO X1 ONE Stop: 05/28/17 08:36 Glycopyrrolate (Robinul) 1.5 mg PO BID [facility] Last Admin: 05/27/17 21:25 Dose: Not Given Haloperidol Lactate (Haldol) 3 mg IV X1 ONE Stop: 05/28/17 08:36 Heparin Sodium (Porcine) (Heparin Na) 5,000 unit SC Q8 [facility] Last Admin: 05/28/17 05:13 Dose: 5,000 u Piperacillin Sod/Tazobactam Sod (Zosyn) 3.375 gm in 50 mls @ 12.5 mls/hr IV Q8 [facility] Last Admin: 05/28/17 05:13 Dose: 12.5 mls/hr Famotidine 20 mg/ Sodium (Chloride) 10 mls @ 300 mls/hr IV Q12 [facility] Last Admin: 05/27/17 21:47 Dose: 300 mls/hr Sodium Chloride () 1,000 mls @ 125 mls/hr IV .Q8H [facility] Last Admin: 05/28/17 06:22 Dose: Not Given Potassium Chloride (Kcl 10meq/100ml) 10 meq in 100 mls @ 100 mls/hr IV BOLUS Q1H [facility] Stop: 05/28/17 12:14 Lisinopril (Zestril) 5 mg PO DAILY [facility] Last Admin: 05/27/17 12:05 Dose: Not Given Magnesium Hydroxide (Milk Of Magnesia) 30 ml PO DAILY PRN PRN PRN Reason: Constipation Montelukast Sodium (Singulair) 10 mg PO DAILY [facility] Last Admin: 05/27/17 12:05 Dose: Not Given Morphine Sulfate (Morphine) 2 - 4 mg IV Q3H PRN PRN PRN Reason: Severe Pain (pain scale 6-10) Last Admin: 05/28/17 04:11 Dose: 2 mg Morphine Sulfate (Morphine) 1 - 2 mg IV Q4H PRN PRN PRN Reason: Moderate Pain (pain scale 4-5) Last Admin: 05/28/17 08:02 Dose: 2 mg Morphine Sulfate (Ms Contin) 30 mg PO BID [facility] Last Admin: 05/27/17 21:24 Dose: Not Given Ondansetron HCl (Zofran) 4 mg IV Q8H PRN PRN PRN Reason: NAUSEA Senna (Senokot) 1 tablet PO BID [facility] Last Admin: 05/27/17 21:25 Dose: Not Given Sertraline HCl (Zoloft) 50 mg PO DAILY [facility] Last Admin: 05/27/17 12:05 Dose: Not Given Sodium Chloride () 5 - 30 ml IV UD PRN PRN Reason: SALINE FLUSH Last Admin: 05/28/17 08:03 Dose: 10 ml Assessment/Plan 56 year old M with a past medical history of hereditary progressive muscular dystrophy, cardiomyopathy, tracheostomy, s/p pacemaker, hypertension, chronic pain syndrome (narcotic dependent) recently admitted on 05/18/2017 and discharged on 05/19/2017 with chest pain. Patient is reported currently on Z-Jose for upper respiratory infection. Admitted with complaints of chest pain and respiratory distress. The EMS was called to his house with patient's was found suctioning tracheostomy. 1. Chest pain, secondary to HCAP. Stable vitals. No fevers. Patient is asymptomatic this morning of chest pain. On Zosyn, repeat chest x-ray is pending. 2. Elevated troponins, likely due to demand ischemia, last 2D echo was normal, troponins peaked to 1.05 and are trending down, patient is asymptomatic. 3. Hypertension, controlled, on lisinopril, will continue to monitor with holding parameters for systolic blood pressure less than 110 4. Status post pacemaker 5. Status post tracheostomy, on mechanical ventilation, further recommendations and management by educational manager 6. Progressive hereditary muscular dystrophy 7. DVT PPx - Lovenox SC 8. Disposition: Possible DC in 24-48 hrs. Code Visit Inpatient E&M: 25868 Disch Hosp
--- NOTE | 2017-05-28 08:59 | PN_ITS ---
Subjective: Patient was seen and examined. He says his pain is not much controlled and needs something to relax. He was just medicated with 2 mg of morphine 10 minutes prior to my exam. Discussed with his nurse, patient is refusing to swallow, so not eating and not taking any p.o. pills. Is on mechanical ventilation since admission; patient was on mechanical ventilation at night at home. Denies any chest pain or fever or chills. Vitals was reviewed and was stable. Chest x-ray this morning is pending Objective: PHYSICAL EXAM: General: Alert, Oriented x3, Cooperative, obese, not pale, not jaundiced. HEENT: Atraumatic, PERRLA, EOMI, Normocephalic Oral: Dry Mucosa Neck: Supple, No JVD, Negative Carotid Bruits, - - Tracheostomy Lungs: Normal air movement, Diminished Cardiovascular: Regular rate, Regular Rhythm, Normal S1, Normal S2, No murmurs Abdomen: Bowel Sounds Present, Soft, Non Tender, Non-Distended, No Hepato- splenomegaly Extremities: No edema Skin: No rashes Musculoskeletal: No Tenderness to Palpation of Joints or Extremities Neurological: Cranial nerves II-XII grossly intact Psych/Mental Status: Normal Affect, Appropriate Vitals/I&O's: Vital Signs Temp Pulse Resp BP Pulse Ox 98.5 F 74 12 117/72 99 05/28/17 08:00 05/28/17 08:00 05/28/17 08:00 05/28/17 08:00 05/28/17 08:00 Oxygen Delivery Method Mechanical Ventilator Weight: 91.3 kg Body Mass Index (BMI) 29.1 Intake and Output for Last 24 Hours 05/26/17 05/27/17 05/28/17 23:59 23:59 23:59 Intake Total 860 / 860 1048.8 / 1048.8 Output Total 550 / 550 75 / 75 Balance 310 / 310 973.8 / 973.8 Microbiology Past 72 Hours 05/28/17 04:20 Sputum, Induced/Lukens Gram Stain - Final Laboratory Results 05/27/17 07:45: MRSA (PCR) Negative 05/27/17 08:40: Troponin I 1.40 H* 05/27/17 12:40: Troponin I 1.05 H* 05/27/17 20:40: Troponin I 0.70 H* 05/28/17 04:20: WBC 10.2, RBC 4.65, Hgb 11.6 L, Hct 37.0 L, MCV 79.6 L, MCH 24.9 L, MCHC 31.4 L, RDW 15.9 H, RDW Differential 46.0 H, Plt Count 215, MPV 9.2 05/28/17 04:20: Sodium 138, Potassium 3.3 L, Chloride 103, Carbon Dioxide 21.0, Anion Gap 14, BUN 8, Creatinine < 0.15 L, Estim Creat Clear Calc 532.04, Est GFR (MDRD) Af Amer 885, Est GFR (MDRD) Non-Af 731, BUN/Creatinine Ratio TNP, Glucose 70, Calcium 8.1 L Current Medications Albuterol/Ipratropium (Duoneb) 3 ml INHALATION Q4H.RT PRN PRN Reason: SOB &/OR WHEEZING Last Admin: 05/28/17 00:14 Dose: 3 ml Aspirin (Aspirin, Baby) 81 mg PO DAILY@0800 COUNT INCLUDES THE [facility] Last Admin: 05/27/17 09:59 Dose: Not Given Buspirone HCl (Buspirone Hcl) 15 mg PO BID COUNT INCLUDES THE [facility] Last Admin: 05/27/17 21:24 Dose: Not Given Chlorhexidine Gluconate () 15 ml PO BID COUNT INCLUDES THE [facility] Last Admin: 05/27/17 21:48 Dose: 15 ml Chlorhexidine Gluconate () 1 each TOPICAL DAILY COUNT INCLUDES THE [facility] Cholecalciferol (Vitamin D) 2,000 unit PO DAILY COUNT INCLUDES THE [facility] Last Admin: 05/27/17 12:05 Dose: Not Given Cyclobenzaprine HCl (Flexeril) 10 mg PO TID PRN PRN PRN Reason: SPASMS Diphenhydramine HCl (Benadryl) 25 mg PO X1 ONE Stop: 05/28/17 08:36 Glycopyrrolate (Robinul) 1.5 mg PO BID COUNT INCLUDES THE [facility] Last Admin: 05/27/17 21:25 Dose: Not Given Haloperidol Lactate (Haldol) 3 mg IV X1 ONE Stop: 05/28/17 08:36 Heparin Sodium (Porcine) (Heparin Na) 5,000 unit SC Q8 COUNT INCLUDES THE [facility] Last Admin: 05/28/17 05:13 Dose: 5,000 u Piperacillin Sod/Tazobactam Sod (Zosyn) 3.375 gm in 50 mls @ 12.5 mls/hr IV Q8 COUNT INCLUDES THE [facility] Last Admin: 05/28/17 05:13 Dose: 12.5 mls/hr Famotidine 20 mg/ Sodium (Chloride) 10 mls @ 300 mls/hr IV Q12 COUNT INCLUDES THE [facility] Last Admin: 05/27/17 21:47 Dose: 300 mls/hr Sodium Chloride () 1,000 mls @ 125 mls/hr IV .Q8H COUNT INCLUDES THE [facility] Last Admin: 05/28/17 06:22 Dose: Not Given Potassium Chloride (Kcl 10meq/100ml) 10 meq in 100 mls @ 100 mls/hr IV BOLUS Q1H COUNT INCLUDES THE [facility] Stop: 05/28/17 12:14 Lisinopril (Zestril) 5 mg PO DAILY COUNT INCLUDES THE [facility] Last Admin: 05/27/17 12:05 Dose: Not Given Magnesium Hydroxide (Milk Of Magnesia) 30 ml PO DAILY PRN PRN PRN Reason: Constipation Montelukast Sodium (Singulair) 10 mg PO DAILY COUNT INCLUDES THE [facility] Last Admin: 05/27/17 12:05 Dose: Not Given Morphine Sulfate (Morphine) 2 - 4 mg IV Q3H PRN PRN PRN Reason: Severe Pain (pain scale 6-10) Last Admin: 05/28/17 04:11 Dose: 2 mg Morphine Sulfate (Morphine) 1 - 2 mg IV Q4H PRN PRN PRN Reason: Moderate Pain (pain scale 4-5) Last Admin: 05/28/17 08:02 Dose: 2 mg Morphine Sulfate (Ms Contin) 30 mg PO BID COUNT INCLUDES THE [facility] Last Admin: 05/27/17 21:24 Dose: Not Given Ondansetron HCl (Zofran) 4 mg IV Q8H PRN PRN PRN Reason: NAUSEA Senna (Senokot) 1 tablet PO BID COUNT INCLUDES THE [facility] Last Admin: 05/27/17 21:25 Dose: Not Given Sertraline HCl (Zoloft) 50 mg PO DAILY COUNT INCLUDES THE [facility] Last Admin: 05/27/17 12:05 Dose: Not Given Sodium Chloride () 5 - 30 ml IV UD PRN PRN Reason: SALINE FLUSH Last Admin: 05/28/17 08:03 Dose: 10 ml Assessment/Plan 56 year old M with a past medical history of hereditary progressive muscular dystrophy, cardiomyopathy, tracheostomy, s/p pacemaker, hypertension, chronic pain syndrome (narcotic dependent) recently admitted on 05/18/2017 and discharged on 05/19/2017 with chest pain. Patient is reported currently on Z- Jose for upper respiratory infection. Admitted with complaints of chest pain and respiratory distress. The EMS was called to his house with patient's was found suctioning tracheostomy. 1. Chest pain, secondary to HCAP. Stable vitals. No fevers. Patient is asymptomatic this morning of chest pain. On Zosyn, repeat chest x-ray is pending. 2. Elevated troponins, likely due to demand ischemia, last 2D echo was normal, troponins peaked to 1.05 and are trending down, patient is asymptomatic. 3. Hypertension, controlled, on lisinopril, will continue to monitor with holding parameters for systolic blood pressure less than 110 4. Status post pacemaker 5. 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 Progressive hereditary muscular dystrophy 7. DVT PPx - Lovenox SC 8. Disposition: Possible DC in 24-48 hrs. Code Visit Inpatient E&M: 09861 Disch Hosp
[2017-05-28] MEDS: Bisacodyl 10 MG Suppository RECTAL (09:24)
[2017-05-28] MEDS: Haloperidol Lactate 5 MG/ML Vial 3 MG IV (10:06)
[2017-05-28] MEDS: Chlorhexidine 15 ML PO ×2 (10:10→20:57)
--- NOTE | 2017-05-28 10:34 | PCM.PN.INT ---
General: Alert, No apparent distress, Non-Cooperative, - - Obese. HEENT: Atraumatic, PERRLA, EOMI, Normocephalic, - - No scleral icterus or injection Oral: Moist Mucosa, No Gingival or Mucosal Lesions/ Ulcerations Neck: Supple, No JVD, No Nodes, Trachea Midline Lungs: No rhonchi, No wheeze, No rales, Diminished Cardiovascular: Regular rate, Regular Rhythm, Normal S1, Normal S2, No murmurs, No rub noted, No Gallop Abdomen: Bowel Sounds Present, Soft, Non Tender, Non-Distended, Obese Extremities: No clubbing, No cyanosis, Edema - Trace Skin: No rashes, No breakdown Musculoskeletal: No Tenderness to Palpation of Joints or Extremities Lymphatic: No Cervical, Supraclavicular, or Inguinal Adenopathy Neurological: Cranial nerves II-XII grossly intact, - - Global weakness Psych/Mental Status: Alert and oriented to time, place, person, mood and affect Vital Signs Temp Pulse Resp BP Pulse Ox 36.9 C 74 12 117/72 99 05/28/17 08:00 05/28/17 08:00 05/28/17 08:00 05/28/17 08:00 05/28/17 08:00 Oxygen Delivery Method Mechanical Ventilator Weight: 91.3 kg Body Mass Index (BMI) 29.1 Intake and Output for Last 24 Hours 05/26/17 05/27/17 05/28/17 23:59 23:59 23:59 Intake Total 860 / 860 1048.8 / 1048.8 Output Total 550 / 550 75 / 75 Balance 310 / 310 973.8 / 973.8 Labs (Last 48 Hours) 05/27/17 05/27/17 05/27/17 07:45 08:40 12:40 WBC RBC Hgb Hct MCV MCH MCHC RDW RDW Differential Plt Count MPV Sodium Potassium Chloride Carbon Dioxide Anion Gap BUN Creatinine Estim Creat Clear Calc Est GFR (MDRD) Af Amer Est GFR (MDRD) Non-Af BUN/Creatinine Ratio Glucose Calcium Troponin I 1.40 H* 1.05 H* MRSA (PCR) Negative 05/27/17 05/28/17 05/28/17 20:40 04:20 04:20 WBC 10.2 RBC 4.65 Hgb 11.6 L Hct 37.0 L MCV 79.6 L MCH 24.9 L MCHC 31.4 L RDW 15.9 H RDW Differential 46.0 H Plt Count 215 MPV 9.2 Sodium 138 Potassium 3.3 L Chloride 103 Carbon Dioxide 21.0 Anion Gap 14 BUN 8 Creatinine < 0.15 L Estim Creat Clear Calc 532.04 Est GFR (MDRD) Af Amer 885 Est GFR (MDRD) Non-Af 731 BUN/Creatinine Ratio TNP Glucose 70 Calcium 8.1 L Troponin I 0.70 H* MRSA (PCR) Microbiology 05/28/17 04:20 Sputum, Induced/Lukens Gram Stain - Final Clinical Impression(s) from Imaging Studies Chest X-Ray 05/27/17 04:02 IMPRESSION: Stable low lung volume. Compression of basilar parenchyma appears increased when compared to previous examination, an inflammatory/infectious process such as pneumonia is not excluded. Electronically Signed: Jenna Paula MD at 4:41 EST , Service support , Chest CTA 05/27/17 05:43 IMPRESSION: Infiltration in both lower lobes. There is no evidence of pulmonary embolism. Electronically Signed: Mikey Angeles MD at 8:01 EST Tel [phone], Service support , Chest X-Ray 05/28/17 05:55 IMPRESSION: Patchy left basilar infiltrate and/or atelectasis with a small left pleural effusion. Mild increased markings at the right lung base. Electronically Signed: Mikey Angeles MD at 9:21 EST Tel [phone], Service support , Assessment/Plan RECOMMENDATIONS: 1. Await razo culture, continue empiric antibiotics 2. No vancomycin required secondary to negative swab 3. Continue baseline blood pressure medications 4. Breaks off ventilator as tolerated 5. Aggressive PT/OT/ST 6. Encourage compliance IMPRESSIONS: 1. Acute on chronic respiratory failure secondary to progressive muscular dystrophy/pneumonia CT scan of the chest does show bilateral infiltrates. Patient also has a leukocytosis and reported fever on presentation. Patient had a nasal swab that was negative for MRSA, so vancomycin is likely not necessary. Patient is on broad-spectrum antibiotics otherwise. Cultures are currently pending. Patient continues to deny/reviews several aspects of his care. Stressed to the patient the importance of attempting ventilator breaks, p.o. medications and nutrition. Patient with variable demands when is present. 2. Type II non-ST elevation [place] No reported hypoxemia, but patient does present requiring continuous mechanical ventilation, which is different than his baseline. Patient has had a pacemaker [place] [address] Sanchez. Troponins appear to be trending down. Defer to hospitalist on whether Dr. Lopez should see the patient again. Patient may benefit from heart catheterization in the future. 3. Depression/hypertension/chronic pain syndrome/debility Complicates care, management, recovery and prognosis. Likely okay to continue with baseline medications. Patient is asking to be doped, so I do not have to feel all this pain. Patient may require evaluation for PEG placement if unable to provide p.o. nutrition as he will go into a catabolic state, which will be severely detrimental in his setting of decreased muscle mass at baseline. Code Visit Inpatient E&M: 04825 Subs Hosp L3
[2017-05-28] MEDS: Ondansetron 4 MG/2 ML Vial IV (10:41)
--- NOTE | 2017-05-28 10:53 | PN_ITS ---
General: Alert, No apparent distress, Non-Cooperative, - - Obese. HEENT: Atraumatic, PERRLA, EOMI, Normocephalic, - - No scleral icterus or injection Oral: Moist Mucosa, No Gingival or Mucosal Lesions/ Ulcerations Neck: Supple, No JVD, No Nodes, Trachea Midline Lungs: No rhonchi, No wheeze, No rales, Diminished Cardiovascular: Regular rate, Regular Rhythm, Normal S1, Normal S2, No murmurs, No rub noted, No Gallop Abdomen: Bowel Sounds Present, Soft, Non Tender, Non-Distended, Obese Extremities: No clubbing, No cyanosis, Edema - Trace Skin: No rashes, No breakdown Musculoskeletal: No Tenderness to Palpation of Joints or Extremities Lymphatic: No Cervical, Supraclavicular, or Inguinal Adenopathy Neurological: Cranial nerves II-XII grossly intact, - - Global weakness Psych/Mental Status: Alert and oriented to time, place, person, mood and affect Vital Signs Temp Pulse Resp BP Pulse Ox 36.9 C 74 12 117/72 99 05/28/17 08:00 05/28/17 08:00 05/28/17 08:00 05/28/17 08:00 05/28/17 08:00 Oxygen Delivery Method Mechanical Ventilator Weight: 91.3 kg Body Mass Index (BMI) 29.1 Intake and Output for Last 24 Hours 05/26/17 05/27/17 05/28/17 23:59 23:59 23:59 Intake Total 860 / 860 1048.8 / 1048.8 Output Total 550 / 550 75 / 75 Balance 310 / 310 973.8 / 973.8 Labs (Last 48 Hours) 05/27/17 05/27/17 05/27/17 07:45 08:40 12:40 WBC RBC Hgb Hct MCV MCH MCHC RDW RDW Differential Plt Count MPV Sodium Potassium Chloride Carbon Dioxide Anion Gap BUN Creatinine Estim Creat Clear Calc Est GFR (MDRD) Af Amer Est GFR (MDRD) Non-Af BUN/Creatinine Ratio Glucose Calcium Troponin I 1.40 H* 1.05 H* MRSA (PCR) Negative 05/27/17 05/28/17 05/28/17 20:40 04:20 04:20 WBC 10.2 RBC 4.65 Hgb 11.6 L Hct 37.0 L MCV 79.6 L MCH 24.9 L MCHC 31.4 L RDW 15.9 H RDW Differential 46.0 H Plt Count 215 MPV 9.2 Sodium 138 Potassium 3.3 L Chloride 103 Carbon Dioxide 21.0 Anion Gap 14 BUN 8 Creatinine < 0.15 L Estim Creat Clear Calc 532.04 Est GFR (MDRD) Af Amer 885 Est GFR (MDRD) Non-Af 731 BUN/Creatinine Ratio TNP Glucose 70 Calcium 8.1 L Troponin I 0.70 H* MRSA (PCR) Microbiology 05/28/17 04:20 Sputum, Induced/Lukens Gram Stain - Final Clinical Impression(s) from Imaging Studies Chest X-Ray 05/27/17 04:02 IMPRESSION: Stable low lung volume. Compression of basilar parenchyma appears increased when compared to previous examination, an inflammatory/infectious process such as pneumonia is not excluded. Electronically Signed: Jenna Paula MD at 4:41 EST , Service support , Chest CTA 05/27/17 05:43 IMPRESSION: Infiltration in both lower lobes. There is no evidence of pulmonary embolism. Electronically Signed: Mikey Angeles MD at 8:01 EST Tel [phone], Service support , Chest X-Ray 05/28/17 05:55 IMPRESSION: Patchy left basilar infiltrate and/or atelectasis with a small left pleural effusion. Mild increased markings at the right lung base. Electronically Signed: Mikey Angeles MD at 9:21 EST Tel [phone], Service support , Assessment/Plan RECOMMENDATIONS: 1. Await razo culture, continue empiric antibiotics 2. No vancomycin required secondary to negative swab 3. Continue baseline blood pressure medications 4. Breaks off ventilator as tolerated 5. Aggressive PT/OT/ST 6. Encourage compliance IMPRESSIONS: 1. Acute on chronic respiratory failure secondary to progressive muscular dystrophy/pneumonia CT scan of the chest does show bilateral infiltrates. Patient also has a leukocytosis and reported fever on presentation. Patient had a nasal swab that was negative for MRSA, so vancomycin is likely not necessary. Patient is on broad-spectrum antibiotics otherwise. Cultures are currently pending. Patient continues to deny/reviews several aspects of his care. Stressed to the patient the importance of attempting ventilator breaks, p.o. medications and nutrition. Patient with variable demands when is present. 2. Type II non-ST elevation [place] No reported hypoxemia, but patient does present requiring continuous mechanical ventilation, which is different than his baseline. Patient has had a pac[place] [address] Sanchez. Troponins appear to be trending down. Defer to hospitalist on whether Dr. Lopez should see the patient again. Patient may benefit from heart catheterization in the future. 3. Depression/hypertension/chronic pain syndrome/debility Complicates care, management, recovery and prognosis. Likely okay to continue with baseline medications. Patient is asking to be doped, so I do not have to feel all this pain. Patient may require evaluation for PEG placement if unable to provide p.o. nutrition as he will go into a catabolic state, which will be severely detrimental in his setting of decreased muscle mass at baseline. Code Visit Inpatient E&M: 00938 Subs Hosp L3
[2017-05-28] MEDS: 0.9% Normal Saline 1,000 ML 125 ML IV ×2 (12:51→20:58)
--- NOTE | 2017-05-28 17:04 | CHAPLAIN ---
Type of Pastoral Visit _x__ Initial Visit ___ Follow-up Visit ___ On-call Visit ___ General Patient Visit ___ Spiritual Assessment ___ Family Conference ___ Bereavement ___ Rapid Response ___ Code Blue ___ Other (describe below) Pastoral Care Referral From _x__ Patient _x__ Family ___ Nurse _x__ Physician ___ Animal Anatomist ___ Hydrology Teacher ___ Other (describe below) Sacrament/Intervention ___ Active listening ___ Anointing ___ Jewish ___ Bereavement ___ Communion ___ Mana exploration ___ ___ Life review _x__ Prayer ___ Reconciliation ___ Sacrament of Sick _x__ Supportive presence ___ Wedding ___ Other (describe below) Pastoral Comments DR requested visit; pt agreed to visit and gave responses through head movement and lip reading; pt has a trachea; spouse and other family member in room agreed to visit and prayers; pt expresses that he is frustrated and that I am done with this; spouse interprets that statement to mean that he really wants to be at home and not at the hospital; spouse indicates that their caustic room attendant has been available as well
[2017-05-28] MEDS: Senna Tablet 1 TABLET PO (20:47)
[2017-05-28] MEDS: Glycopyrrolate 1 MG TABLET 1.5 MG PO (20:48)
[2017-05-28] MEDS: Mag Hydrox/Al Hydrox/Simeth 30 ML UDC PO (23:01)
[2017-05-29] VITALS (49 sets, daily range): BP systolic 111–174; BP diastolic 52–124; PULSE 62–102; RESP 10–27; TEMP 36.3–36.7; O2SAT 30–100
[2017-05-29] MEDS: Mag Hydrox/Al Hydrox/Simeth 30 ML UDC PO ×2 (03:21→20:21)
[2017-05-29] MEDS: Piperacil/Tazobactam 3.375 GM/50 ML ML IV (05:49)
[2017-05-29] MEDS: 0.9% Normal Saline 1,000 ML 125 ML IV ×3 (05:49→20:08)
[2017-05-29 06:20] LABS: Absolute Lymphocyte Count 1.66 X10^3/ul (0.83-4.51); Absolute Neutrophil Count 5.6 X10^3/uL (2.0-7.7); Basophil# 0.02 X10^3/uL; Basophil% 0.3 % (0-1); Eosinophil# 0.02 X10^3/uL; Eosinophils% 0.3 % (0-5); Hematocrit 35.8 % (40-54); Hemoglobin 11.2 g/dl (13.0-16.5); Lymphocyte # 1.66 X10^3/ul (4.0); Lymphocyte % 21.3 % (19-41); Mean Corp Hgb Conc 31.3 g/gl (32-36); Mean Corpuscular Volume 79.9 fL (80-94); Mean Platelet Vol. 9.3 fl (6.2-12.0); Monocyte# 0.49 X10^3/uL; Monocyte% 6.3 % (0-10); Neutrophil # 5.59 X10^3/uL (2.7-7.7); Neutrophil % 71.5 % (47-70); Platelet Count 281 K/mm3 (150-450); RBC Distribution Width CV 16.6 % (11.6-14.6); RBC Distribution Width SD 47.5 fl (35.1-43.9); Red Blood Count 4.48 M/mm3 (4.6-6.2); White Blood Count 7.8 K/mm3 (4.4-11.0)
[2017-05-29 06:21] LABS: International Normalized Ratio 1.2; Prothrombin Time (Protime)PT. 15.1 SECONDS (11.7-14.9)
[2017-05-29] MEDS: 0.9% NaCl Peripheral Flush Adult/Peds IV ×2 (06:24→20:08)
[2017-05-29 06:29] LABS: POSITIVE COUNT NO; POSITIVE DIFFERENTIAL NO; POSITIVE MORPHOLOGY NO
[2017-05-29 06:35] LABS: Magnesium 1.6 mg/dL (1.6-2.6); Phosphorus 2.2 mg/dL (2.5-4.9)
[2017-05-29 07:12] LABS: Anion Gap 15 (5-15); BUN 3 mg/dL (7-18); Calcium,Total 8.1 mg/dL (8.5-10.1); Chloride 107 mmol/L (98-107); Creatinine, Serum < 0.15 mg/dL (0.70-1.30); EST Glomerular Filtration Rate 731 mL/min (>60); Est Glom Filt Rate - Afr Amer 885 mL/min (>60); Glucose 50 mg/dL (70-110); Potassium 4.7 mmol/L (3.5-5.1); Sodium Level 137 mmol/L (136-145)
--- NOTE | 2017-05-29 07:23 | PCM.PN.INT ---
Subjective: Patient is done okay overnight from a hemodynamic standpoint. Patient was able to come off the ventilator for a short period of time to facilitate p.o. medications. However, has not been able to take any dietary intake. Patient is currently requesting placement of a PEG tube to facilitate nutrition. Patient reports dyspnea after 3-5 minutes off of the ventilator. Patient states his pain is grossly unchanged compared to previous. General: Alert, Oriented x3, Cooperative, No apparent distress, - - Good ventilator synchrony. Able to vocalize slightly around balloon with effort. HEENT: Atraumatic, PERRLA, EOMI, Normocephalic, - - No scleral icterus or injection noted. Oral: Moist Mucosa, No Gingival or Mucosal Lesions/ Ulcerations Neck: Supple, No JVD, No Nodes, Trachea Midline, - - Tracheostomy site is clean, dry and intact. Lungs: No rhonchi, No wheeze, No rales, Diminished, - - Symmetric expansion. Cardiovascular: Regular rate, Regular Rhythm, Normal S1, Normal S2, No murmurs, No rub noted, No Gallop Abdomen: Bowel Sounds Present, Soft, Non Tender, Non-Distended, Obese Extremities: No cyanosis, Capillary Refill Less than 3 Seconds, Clubbing, Edema Skin: No rashes, No breakdown Musculoskeletal: No Tenderness to Palpation of Joints or Extremities, Muscle Wasting Lymphatic: No Cervical, Supraclavicular, or Inguinal Adenopathy Neurological: - - Grossly unchanged compared to previous Psych/Mental Status: Alert and oriented to time, place, person, mood and affect Vital Signs Temp Pulse Resp BP Pulse Ox 36.6 C 74 12 118/75 100 05/29/17 06:34 05/29/17 06:34 05/29/17 06:34 05/29/17 06:34 05/29/17 06:34 Oxygen Delivery Method Mechanical Ventilator Weight: 93.6 kg Body Mass Index (BMI) 29.1 Intake and Output for Last 24 Hours 05/27/17 05/28/17 05/29/17 23:59 23:59 23:59 Intake Total 860 / 860 3053.8 / 3053.8 1572 / 1572 Output Total 550 / 550 575 / 575 900 / 900 Balance 310 / 310 2478.8 / 2478.8 672 / 672 Labs (Last 48 Hours) 05/27/17 05/27/17 05/27/17 07:45 08:40 12:40 WBC RBC Hgb Hct MCV MCH MCHC RDW RDW Differential Plt Count MPV Immature Gran % (Auto) Neut % (Auto) Lymph % (Auto) [place] % (Auto) Eos % (Auto) Baso % (Auto) Absolute Neuts (auto) Absolute Lymphs (auto) Total Counted PT INR APTT Sodium Potassium Chloride Carbon Dioxide Anion Gap BUN Creatinine Estim Creat Clear Calc Est GFR (MDRD) Af Amer Est GFR (MDRD) Non-Af BUN/Creatinine Ratio Glucose Calcium Phosphorus Magnesium Troponin I 1.40 H* 1.05 H* MRSA (PCR) Negative 05/27/17 05/28/17 05/28/17 20:40 04:20 04:20 WBC 10.2 RBC 4.65 Hgb 11.6 L Hct 37.0 L MCV 79.6 L MCH 24.9 L MCHC 31.4 L RDW 15.9 H RDW Differential 46.0 H Plt Count 215 MPV 9.2 Immature Gran % (Auto) Neut % (Auto) Lymph % (Auto) [place] % (Auto) Eos % (Auto) Baso % (Auto) Absolute Neuts (auto) Absolute Lymphs (auto) Total Counted PT INR APTT Sodium 138 Potassium 3.3 L Chloride 103 Carbon Dioxide 21.0 Anion Gap 14 BUN 8 Creatinine < 0.15 L Estim Creat Clear Calc 532.04 Est GFR (MDRD) Af Amer 885 Est GFR (MDRD) Non-Af 731 BUN/Creatinine Ratio TNP Glucose 70 Calcium 8.1 L Phosphorus Magnesium Troponin I 0.70 H* MRSA (PCR) 05/29/17 05/29/17 05/29/17 06:00 06:00 06:00 WBC 7.8 RBC 4.48 L Hgb 11.2 L Hct 35.8 L MCV 79.9 L MCH 25.0 L MCHC 31.3 L RDW 16.6 H RDW Differential 47.5 H Plt Count 281 MPV 9.3 Immature Gran % (Auto) 0.300 Neut % (Auto) 71.5 H Lymph % (Auto) 21.3 [place] % (Auto) 6.3 Eos % (Auto) 0.3 Baso % (Auto) 0.3 Absolute Neuts (auto) 5.6 Absolute Lymphs (auto) 1.66 Total Counted Not Reportable PT 15.1 H INR 1.2 APTT 35.0 Sodium 137 Potassium 4.7 Chloride 107 Carbon Dioxide 15.0 L Anion Gap 15 BUN 3 L Creatinine < 0.15 L Estim Creat Clear Calc 532.04 Est GFR (MDRD) Af Amer 885 Est GFR (MDRD) Non-Af 731 BUN/Creatinine Ratio TNP Glucose 50 L Calcium 8.1 L Phosphorus Magnesium Troponin I MRSA (PCR) 05/29/17 06:00 WBC RBC Hgb Hct MCV MCH MCHC RDW RDW Differential Plt Count MPV Immature Gran % (Auto) Neut % (Auto) Lymph % (Auto) [place] % (Auto) Eos % (Auto) Baso % (Auto) Absolute Neuts (auto) Absolute Lymphs (auto) Total Counted PT INR APTT Sodium Potassium Chloride Carbon Dioxide Anion Gap BUN Creatinine Estim Creat Clear Calc Est GFR (MDRD) Af Amer Est GFR (MDRD) Non-Af BUN/Creatinine Ratio Glucose Calcium Phosphorus 2.2 L Magnesium 1.6 Troponin I MRSA (PCR) Microbiology 05/28/17 04:20 Sputum, Induced/Lukens Gram Stain - Final Clinical Impression(s) from Imaging Studies Chest X-Ray 05/28/17 05:55 IMPRESSION: Patchy left basilar infiltrate and/or atelectasis with a small left pleural effusion. Mild increased markings at the right lung base. Electronically Signed: Mikey Angeles MD at 9:21 EST Tel [phone], Service support , Assessment/Plan RECOMMENDATIONS: 1. Await razo culture, continue empiric antibiotics 2. Consult surgery for possible PEG placement 3. Continue baseline blood pressure medications 4. Breaks off ventilator as tolerated 5. Aggressive PT/OT/ST 6. Encourage compliance IMPRESSIONS: 1. Acute on chronic respiratory failure secondary to progressive muscular dystrophy/pneumonia CT scan of the chest does show bilateral infiltrates. Patient also has a leukocytosis and reported fever on presentation. Patient had a nasal swab that was negative for MRSA, so vancomycin is likely not necessary. Gram stain of sputum shows gram-negative rods. Await species and sensitivities. Clinical suspicion for pseudomonal infection. Patient is on appropriate antibiotics. Blood pressures have remained stable. Some concern that prolonged ventilatory support will be required secondary to decompensation of baseline muscular dystrophy. Patient will require aggressive nutritional status. Will consult surgery for possible PEG placement. Previous PEG was placed by Dr. Ash. Patient was initiated on vest therapy yesterday to help with pulmonary toileting. 2. Type II non-ST elevation [place] No reported hypoxemia, but patient does present requiring continuous mechanical ventilation, which is different than his baseline. Patient has had a pac[place] [address] Sanchez. Troponins appear to be trending down. Defer to hospitalist on whether Dr. Lopez should see the patient again. Patient may benefit from heart catheterization in the future. Troponins have trended down following optimization of hemodynamics indicating probable type II non-ST elevation [place]. 3. Depression/hypertension/chronic pain syndrome/debility Complicates care, management, recovery and prognosis. Likely okay to continue with baseline medications. Patient is asking to be doped, so I do not have to feel all this pain. Patient will likely require evaluation for PEG placement if unable to provide p.o. nutrition as he will go into a catabolic state, which will be severely detrimental in his setting of decreased muscle mass at baseline. Addendum (conscious sedation) 1730: As by Dr. Kennedy to provide anesthesia for PEG placement. Patient was given 40 mg of propofol and 50 mcg of fentanyl at 1630. There was significant difficulty in cannulating the esophagus. The patient ended up requiring a total of 380 mg of propofol and 200 mcg of fentanyl throughout the procedure. Patient tolerated it well using mechanical ventilation through the tracheostomy. No arrhythmias were noted during the case. There was some minor bleeding from the PEG site. The patient was monitored until 1720. At that time, patient was following commands. Total anesthesia time of 50 minutes. This excludes time spent earlier in the day evaluating in writing note. Code Visit Inpatient E&M: 59957 Subs Hosp L3
--- NOTE | 2017-05-29 07:31 | PN_ITS ---
Subjective: Patient is done okay overnight from a hemodynamic standpoint. Patient was able to come off the ventilator for a short period of time to facilitate p.o. medications. However, has not been able to take any dietary intake. Patient is currently requesting placement of a PEG tube to facilitate nutrition. Patient reports dyspnea after 3-5 minutes off of the ventilator. Patient states his pain is grossly unchanged compared to previous. General: Alert, Oriented x3, Cooperative, No apparent distress, - - Good ventilator synchrony. Able to vocalize slightly around balloon with effort. HEENT: Atraumatic, PERRLA, EOMI, Normocephalic, - - No scleral icterus or injection noted. Oral: Moist Mucosa, No Gingival or Mucosal Lesions/ Ulcerations Neck: Supple, No JVD, No Nodes, Trachea Midline, - - Tracheostomy site is clean , dry and intact. Lungs: No rhonchi, No wheeze, No rales, Diminished, - - Symmetric expansion. Cardiovascular: Regular rate, Regular Rhythm, Normal S1, Normal S2, No murmurs, No rub noted, No Gallop Abdomen: Bowel Sounds Present, Soft, Non Tender, Non-Distended, Obese Extremities: No cyanosis, Capillary Refill Less than 3 Seconds, Clubbing, Edema Skin: No rashes, No breakdown Musculoskeletal: No Tenderness to Palpation of Joints or Extremities, Muscle Wasting Lymphatic: No Cervical, Supraclavicular, or Inguinal Adenopathy Neurological: - - Grossly unchanged compared to previous Psych/Mental Status: Alert and oriented to time, place, person, mood and affect Vital Signs Temp Pulse Resp BP Pulse Ox 36.6 C 74 12 118/75 100 05/29/17 06:34 05/29/17 06:34 05/29/17 06:34 05/29/17 06:34 05/29/17 06:34 Oxygen Delivery Method Mechanical Ventilator Weight: 93.6 kg Body Mass Index (BMI) 29.1 Intake and Output for Last 24 Hours 05/27/17 05/28/17 05/29/17 23:59 23:59 23:59 Intake Total 860 / 860 3053.8 / 3053.8 1572 / 1572 Output Total 550 / 550 575 / 575 900 / 900 Balance 310 / 310 2478.8 / 2478.8 672 / 672 Labs (Last 48 Hours) 05/27/17 05/27/17 05/27/17 07:45 08:40 12:40 WBC RBC Hgb Hct MCV MCH MCHC RDW RDW Differential Plt Count MPV Immature Gran % (Auto) Neut % (Auto) Lymph % (Auto) [place] % (Auto) Eos % (Auto) Baso % (Auto) Absolute Neuts (auto) Absolute Lymphs (auto) Total Counted PT INR APTT Sodium Potassium Chloride Carbon Dioxide Anion Gap BUN Creatinine Estim Creat Clear Calc Est GFR (MDRD) Af Amer Est GFR (MDRD) Non-Af BUN/Creatinine Ratio Glucose Calcium Phosphorus Magnesium Troponin I 1.40 H* 1.05 H* MRSA (PCR) Negative 05/27/17 05/28/17 05/28/17 20:40 04:20 04:20 WBC 10.2 RBC 4.65 Hgb 11.6 L Hct 37.0 L MCV 79.6 L MCH 24.9 L MCHC 31.4 L RDW 15.9 H RDW Differential 46.0 H Plt Count 215 MPV 9.2 Immature Gran % (Auto) Neut % (Auto) Lymph % (Auto) [place] % (Auto) Eos % (Auto) Baso % (Auto) Absolute Neuts (auto) Absolute Lymphs (auto) Total Counted PT INR APTT Sodium 138 Potassium 3.3 L Chloride 103 Carbon Dioxide 21.0 Anion Gap 14 BUN 8 Creatinine < 0.15 L Estim Creat Clear Calc 532.04 Est GFR (MDRD) Af Amer 885 Est GFR (MDRD) Non-Af 731 BUN/Creatinine Ratio TNP Glucose 70 Calcium 8.1 L Phosphorus Magnesium Troponin I 0.70 H* MRSA (PCR) 05/29/17 05/29/17 05/29/17 06:00 06:00 06:00 WBC 7.8 RBC 4.48 L Hgb 11.2 L Hct 35.8 L MCV 79.9 L MCH 25.0 L MCHC 31.3 L RDW 16.6 H RDW Differential 47.5 H Plt Count 281 MPV 9.3 Immature Gran % (Auto) 0.300 Neut % (Auto) 71.5 H Lymph % (Auto) 21.3 [place] % (Auto) 6.3 Eos % (Auto) 0.3 Baso % (Auto) 0.3 Absolute Neuts (auto) 5.6 Absolute Lymphs (auto) 1.66 Total Counted Not Reportable PT 15.1 H INR 1.2 APTT 35.0 Sodium 137 Potassium 4.7 Chloride 107 Carbon Dioxide 15.0 L Anion Gap 15 BUN 3 L Creatinine < 0.15 L Estim Creat Clear Calc 532.04 Est GFR (MDRD) Af Amer 885 Est GFR (MDRD) Non-Af 731 BUN/Creatinine Ratio TNP Glucose 50 L Calcium 8.1 L Phosphorus Magnesium Troponin I MRSA (PCR) 05/29/17 06:00 WBC RBC Hgb Hct MCV MCH MCHC RDW RDW Differential Plt Count MPV Immature Gran % (Auto) Neut % (Auto) Lymph % (Auto) [place] % (Auto) Eos % (Auto) Baso % (Auto) Absolute Neuts (auto) Absolute Lymphs (auto) Total Counted PT INR APTT Sodium Potassium Chloride Carbon Dioxide Anion Gap BUN Creatinine Estim Creat Clear Calc Est GFR (MDRD) Af Amer Est GFR (MDRD) Non-Af BUN/Creatinine Ratio Glucose Calcium Phosphorus 2.2 L Magnesium 1.6 Troponin I MRSA (PCR) Microbiology 05/28/17 04:20 Sputum, Induced/Lukens Gram Stain - Final Clinical Impression(s) from Imaging Studies Chest X-Ray 05/28/17 05:55 IMPRESSION: Patchy left basilar infiltrate and/or atelectasis with a small left pleural effusion. Mild increased markings at the right lung base. Electronically Signed: Mikey Angeles MD at 9:21 EST Tel [phone], Service support , Assessment/Plan RECOMMENDATIONS: 1. Await razo culture, continue empiric antibiotics 2. Consult surgery for possible PEG placement 3. Continue baseline blood pressure medications 4. Breaks off ventilator as tolerated 5. Aggressive PT/OT/ST 6. Encourage compliance IMPRESSIONS: 1. Acute on chronic respiratory failure secondary to progressive muscular dystrophy/pneumonia CT scan of the chest does show bilateral infiltrates. Patient also has a leukocytosis and reported fever on presentation. Patient had a nasal swab that was negative for MRSA, so vancomycin is likely not necessary. Gram stain of sputum shows gram-negative rods. Await species and sensitivities. Clinical suspicion for pseudomonal infection. Patient is on appropriate antibiotics. Blood pressures have remained stable. Some concern that prolonged ventilatory support will be required secondary to decompensation of baseline muscular dystrophy. Patient will require aggressive nutritional status. Will consult surgery for possible PEG placement. Previous PEG was placed by Dr. Ash. Patient was initiated on vest therapy yesterday to help with pulmonary toileting. 2. Type II non-ST elevation [place] No reported hypoxemia, but patient does present requiring continuous mechanical ventilation, which is different than his baseline. Patient has had a pac[place] [address] Sanchez. Troponins appear to be trending down. Defer to hospitalist on whether Dr. Lopez should see the patient again. Patient may benefit from heart catheterization in the future. Troponins have trended down following optimization of hemodynamics indicating probable type II non-ST elevation [place]. 3. Depression/hypertension/chronic pain syndrome/debility Complicates care, management, recovery and prognosis. Likely okay to continue with baseline medications. Patient is asking to be doped, so I do not have to feel all this pain. Patient will likely require evaluation for PEG placement if unable to provide p.o. nutrition as he will go into a catabolic state, which will be severely detrimental in his setting of decreased muscle mass at baseline. Addendum (conscious sedation) 1730: As by Dr. Kennedy to provide anesthesia for PEG placement. Patient was given 40 mg of propofol and 50 mcg of fentanyl at 1630. There was significant difficulty in cannulating the esophagus. The patient ended up requiring a total of 380 mg of propofol and 200 mcg of fentanyl throughout the procedure. Patient tolerated it well using mechanical ventilation through the tracheostomy. No arrhythmias were noted during the case. There was some minor bleeding from the PEG site. The patient was monitored until 1720. At that time , patient was following commands. Total anesthesia time of 50 minutes. This excludes time spent earlier in the day evaluating in writing note. Code Visit Inpatient E&M: 34860 Subs Hosp L3
--- NOTE | 2017-05-29 09:00 | NURSING ---
Off vent briefly (max 10min) for speech eval and medications. Pt c/o being unable to breath almost immediately. SpO2 remained near 100% but chest sds significantly decreased over approx 5min. Much reassurance given to pt. returned to previous vent settings. Dr. Tonny joiner.
[2017-05-29] MEDS: Aspirin 81 MG TAB.CHEW PO (09:05)
[2017-05-29] MEDS: Glycopyrrolate 1 MG TABLET 1.5 MG PO ×2 (09:06→21:21)
[2017-05-29] MEDS: Senna Tablet 1 TABLET PO ×2 (09:06→21:21)
[2017-05-29] MEDS: Montelukast 10 MG Tablet PO (09:06)
[2017-05-29] MEDS: Lisinopril 5 MG Tablet PO (09:07)
[2017-05-29] MEDS: Sertraline 50 MG Tablet PO (09:07)
[2017-05-29] MEDS: Ipratropium/Albuterol Sulfate 3 ML AMPUL.NEB INHALATION ×2 (09:52→20:38)
[2017-05-29] MEDS: Chlorhexidine 15 ML PO ×2 (10:30→21:57)
--- NOTE | 2017-05-29 13:38 | PCM.PN.HOSP ---
Subjective: Patient was seen and examined in the company of the . Noted that patient has been on continuous mechanical ventilation via tracheostomy. Aware of request for PEG tube and discharge planning for LTAC. Objective: PHYSICAL EXAM: General: Alert, Oriented x3, Cooperative, obese, not pale, not jaundiced. HEENT: Atraumatic, PERRLA, EOMI, Normocephalic Oral: Dry Mucosa Neck: Supple, No JVD, Negative Carotid Bruits, - - Tracheostomy Lungs: Normal air movement, Diminished Cardiovascular: Regular rate, Regular Rhythm, Normal S1, Normal S2, No murmurs Abdomen: Bowel Sounds Present, Soft, Non Tender, Non-Distended, No Hepato-splenomegaly Extremities: No edema Skin: No rashes Musculoskeletal: No Tenderness to Palpation of Joints or Extremities Neurological: Cranial nerves II-XII grossly intact Psych/Mental Status: Normal Affect, Appropriate Vitals/I&O's: Vital Signs Temp Pulse Resp BP Pulse Ox 97.5 F L 75 14 136/73 H 100 05/29/17 08:00 05/29/17 11:15 05/29/17 11:15 05/29/17 08:00 05/29/17 11:15 Oxygen Delivery Method Mechanical Ventilator Weight: 93.6 kg Body Mass Index (BMI) 29.1 Intake and Output for Last 24 Hours 05/27/17 05/28/17 05/29/17 23:59 23:59 23:59 Intake Total 860 / 860 3053.8 / 3053.8 1572 / 1572 Output Total 550 / 550 575 / 575 900 / 900 Balance 310 / 310 2478.8 / 2478.8 672 / 672 Microbiology Past 72 Hours 05/28/17 04:20 Sputum, Induced/Lukens Gram Stain - Final 05/28/17 04:20 Sputum, Induced/Lukens Respiratory Culture - Preliminary GNR Poss 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 Laboratory Results 05/29/17 06:00: Sodium 137, Potassium 4.7, Chloride 107, Carbon Dioxide 15.0 L, Anion Gap 15, BUN 3 L, Creatinine < 0.15 L, Estim Creat Clear Calc 532.04, Est GFR (MDRD) Af Amer 885, Est GFR (MDRD) Non-Af 731, BUN/Creatinine Ratio TNP, Glucose 50 L, Calcium 8.1 L 05/29/17 06:00: WBC 7.8, RBC 4.48 L, Hgb 11.2 L, Hct 35.8 L, MCV 79.9 L, MCH 25.0 L, MCHC 31.3 L, RDW 16.6 H, RDW Differential 47.5 H, Plt Count 281, MPV 9.3, Immature Gran % (Auto) 0.300, Neut % (Auto) 71.5 H, Lymph % (Auto) 21.3, [place] % (Auto) 6.3, Eos % (Auto) 0.3, Baso % (Auto) 0.3, Absolute Neuts (auto) 5.6, Absolute Lymphs (auto) 1.66, Total Counted Not Reportable 05/29/17 06:00: PT 15.1 H, INR 1.2, APTT 35.0 05/29/17 06:00: Phosphorus 2.2 L, Magnesium 1.6 Current Medications Al Hydroxide/Mg Hydroxide (Mylanta Ii) 30 ml PO Q4H PRN PRN PRN Reason: DYSPEPSIA Last Admin: 05/29/17 03:21 Dose: 30 ml Albuterol/Ipratropium (Duoneb) 3 ml INHALATION Q4H.RT PRN PRN Reason: SOB &/OR WHEEZING Last Admin: 05/29/17 09:52 Dose: 3 ml Aspirin (Aspirin, Baby) 81 mg PO DAILY@0800 [facility] Last Admin: 05/29/17 09:05 Dose: 81 mg Bisacodyl (Dulcolax) 10 mg RECTAL DAILY PRN PRN PRN Reason: CONSTIPATION Last Admin: 05/28/17 09:24 Dose: 10 mg Buspirone HCl (Buspirone Hcl) 15 mg PO BID [facility] Last Admin: 05/29/17 09:05 Dose: 15 mg Chlorhexidine Gluconate () 15 ml PO BID [facility] Last Admin: 05/29/17 10:30 Dose: 15 ml Chlorhexidine Gluconate () 1 each TOPICAL DAILY [facility] Last Admin: 05/28/17 12:37 Dose: Not Given Cholecalciferol (Vitamin D) 2,000 unit PO DAILY [facility] Last Admin: 05/29/17 09:06 Dose: 2,000 unit Cyclobenzaprine HCl (Flexeril) 10 mg PO TID PRN PRN PRN Reason: SPASMS Famotidine (Pepcid) 20 mg PO BID [facility] Glycopyrrolate (Robinul) 1.5 mg PO BID [facility] Last Admin: 05/29/17 09:06 Dose: 1.5 mg Heparin Sodium (Porcine) (Heparin Na) 5,000 unit SC Q8 [facility] Last Admin: 05/29/17 05:50 Dose: 5,000 u Sodium Chloride () 1,000 mls @ 125 mls/hr IV .Q8H [facility] Last Admin: 05/29/17 05:49 Dose: 125 mls/hr Cefepime HCl 2 gm/ Sodium (Chloride) 100 mls @ 200 mls/hr IV Q8 [facility] Lisinopril (Zestril) 5 mg PO DAILY [facility] Last Admin: 05/29/17 09:07 Dose: 5 mg Magnesium Hydroxide (Milk Of Magnesia) 30 ml PO DAILY PRN PRN PRN Reason: Constipation Montelukast Sodium (Singulair) 10 mg PO DAILY [facility] Last Admin: 05/29/17 09:06 Dose: 10 mg Morphine Sulfate (Morphine) 2 - 4 mg IV Q3H PRN PRN PRN Reason: Severe Pain (pain scale 6-10) Last Admin: 05/29/17 06:18 Dose: 4 mg Morphine Sulfate (Morphine) 1 - 2 mg IV Q4H PRN PRN PRN Reason: Moderate Pain (pain scale 4-5) Last Admin: 05/29/17 11:11 Dose: 2 mg Morphine Sulfate (Ms Contin) 30 mg PO BID [facility] Last Admin: 05/29/17 10:30 Dose: 30 mg Ondansetron HCl (Zofran) 4 mg IV Q8H PRN PRN PRN Reason: NAUSEA Last Admin: 05/28/17 10:41 Dose: 4 mg Senna (Senokot) 1 tablet PO BID [facility] Last Admin: 05/29/17 09:06 Dose: 1 tablet Sertraline HCl (Zoloft) 50 mg PO DAILY [facility] Last Admin: 05/29/17 09:07 Dose: 50 mg Sodium Chloride () 5 - 30 ml IV UD PRN PRN Reason: SALINE FLUSH Last Admin: 05/29/17 06:24 Dose: 10 ml Assessment/Plan 56 year old M with a past medical history of hereditary progressive muscular dystrophy, cardiomyopathy, tracheostomy, s/p pacemaker, hypertension, chronic pain syndrome (narcotic dependent) recently admitted on 05/18/2017 and discharged on 05/19/2017 with chest pain. Patient is reported currently on Z-Jose for upper respiratory infection. Admitted with complaints of chest pain and respiratory distress. The EMS was called to his house with patient's was found suctioning tracheostomy. 1. HCAP, sputum cultures are growing gram-negative rods, staph aureus and possibly Pseudomonas, remains on cefepime IV( day 3 of antibiotics), vitals are stable, no fevers, will continue to monitor 2. Elevated troponins, likely due to type II NSTEMI/demand ischemia, last 2D echo was normal, discussed patient's case in detail and informally with Dr. Sanchez, patient would need to follow-up in the outpatient, continue on aspirin, ACEI. 3. Hypertension, controlled, on lisinopril, will continue to monitor with holding parameters for systolic blood pressure less than 110 4. Status post pacemaker 5. Status post tracheostomy, on mechanical ventilation, further recommendations and management by last sorter 6. Progressive hereditary muscular dystrophy, complicated weaning off mechanical ventilation for meals, PEG tube being arranged for feeding 7. DVT PPx - Lovenox SC 8. Disposition: Possible DC to LTAC Code Visit Inpatient E&M: 21507 Subs Hosp L3
--- NOTE | 2017-05-29 13:49 | PN_ITS ---
Subjective: Patient was seen and examined in the company of the . Noted that patient has been on continuous mechanical ventilation via tracheostomy. Aware of request for PEG tube and discharge planning for LTAC. Objective: PHYSICAL EXAM: General: Alert, Oriented x3, Cooperative, obese, not pale, not jaundiced. HEENT: Atraumatic, PERRLA, EOMI, Normocephalic Oral: Dry Mucosa Neck: Supple, No JVD, Negative Carotid Bruits, - - Tracheostomy Lungs: Normal air movement, Diminished Cardiovascular: Regular rate, Regular Rhythm, Normal S1, Normal S2, No murmurs Abdomen: Bowel Sounds Present, Soft, Non Tender, Non-Distended, No Hepato- splenomegaly Extremities: No edema Skin: No rashes Musculoskeletal: No Tenderness to Palpation of Joints or Extremities Neurological: Cranial nerves II-XII grossly intact Psych/Mental Status: Normal Affect, Appropriate Vitals/I&O's: Vital Signs Temp Pulse Resp BP Pulse Ox 97.5 F L 75 14 136/73 H 100 05/29/17 08:00 05/29/17 11:15 05/29/17 11:15 05/29/17 08:00 05/29/17 11:15 Oxygen Delivery Method Mechanical Ventilator Weight: 93.6 kg Body Mass Index (BMI) 29.1 Intake and Output for Last 24 Hours 05/27/17 05/28/17 05/29/17 23:59 23:59 23:59 Intake Total 860 / 860 3053.8 / 3053.8 1572 / 1572 Output Total 550 / 550 575 / 575 900 / 900 Balance 310 / 310 2478.8 / 2478.8 672 / 672 Microbiology Past 72 Hours 05/28/17 04:20 Sputum, Induced/Lukens Gram Stain - Final 05/28/17 04:20 Sputum, Induced/Lukens Respiratory Culture - Preliminary GNR Poss Pseudomonas sp 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 Laboratory Results 05/29/17 06:00: Sodium 137, Potassium 4.7, Chloride 107, Carbon Dioxide 15.0 L, Anion Gap 15, BUN 3 L, Creatinine < 0.15 L, Estim Creat Clear Calc 532.04, Est GFR (MDRD) Af Amer 885, Est GFR (MDRD) Non-Af 731, BUN/Creatinine Ratio TNP, Glucose 50 L, Calcium 8.1 L 05/29/17 06:00: WBC 7.8, RBC 4.48 L, Hgb 11.2 L, Hct 35.8 L, MCV 79.9 L, MCH 25.0 L, MCHC 31.3 L, RDW 16.6 H, RDW Differential 47.5 H, Plt Count 281, MPV 9.3 , Immature Gran % (Auto) 0.300, Neut % (Auto) 71.5 H, Lymph % (Auto) 21.3, [place] % (Auto) 6.3, Eos % (Auto) 0.3, Baso % (Auto) 0.3, Absolute Neuts (auto) 5.6, Absolute Lymphs (auto) 1.66, Total Counted Not Reportable 05/29/17 06:00: PT 15.1 H, INR 1.2, APTT 35.0 05/29/17 06:00: Phosphorus 2.2 L, Magnesium 1.6 Current Medications Al Hydroxide/Mg Hydroxide (Mylanta Ii) 30 ml PO Q4H PRN PRN PRN Reason: DYSPEPSIA Last Admin: 05/29/17 03:21 Dose: 30 ml Albuterol/Ipratropium (Duoneb) 3 ml INHALATION Q4H.RT PRN PRN Reason: SOB &/OR WHEEZING Last Admin: 05/29/17 09:52 Dose: 3 ml Aspirin (Aspirin, Baby) 81 mg PO DAILY@0800 [facility] Last Admin: 05/29/17 09:05 Dose: 81 mg Bisacodyl (Dulcolax) 10 mg RECTAL DAILY PRN PRN PRN Reason: CONSTIPATION Last Admin: 05/28/17 09:24 Dose: 10 mg Buspirone HCl (Buspirone Hcl) 15 mg PO BID [facility] Last Admin: 05/29/17 09:05 Dose: 15 mg Chlorhexidine Gluconate () 15 ml PO BID [facility] Last Admin: 05/29/17 10:30 Dose: 15 ml Chlorhexidine Gluconate () 1 each TOPICAL DAILY [facility] Last Admin: 05/28/17 12:37 Dose: Not Given Cholecalciferol (Vitamin D) 2,000 unit PO DAILY [facility] Last Admin: 05/29/17 09:06 Dose: 2,000 unit Cyclobenzaprine HCl (Flexeril) 10 mg PO TID PRN PRN PRN Reason: SPASMS Famotidine (Pepcid) 20 mg PO BID [facility] Glycopyrrolate (Robinul) 1.5 mg PO BID [facility] Last Admin: 05/29/17 09:06 Dose: 1.5 mg Heparin Sodium (Porcine) (Heparin Na) 5,000 unit SC Q8 [facility] Last Admin: 05/29/17 05:50 Dose: 5,000 u Sodium Chloride () 1,000 mls @ 125 mls/hr IV .Q8H [facility] Last Admin: 05/29/17 05:49 Dose: 125 mls/hr Cefepime HCl 2 gm/ Sodium (Chloride) 100 mls @ 200 mls/hr IV Q8 [facility] Lisinopril (Zestril) 5 mg PO DAILY [facility] Last Admin: 05/29/17 09:07 Dose: 5 mg Magnesium Hydroxide (Milk Of Magnesia) 30 ml PO DAILY PRN PRN PRN Reason: Constipation Montelukast Sodium (Singulair) 10 mg PO DAILY [facility] Last Admin: 05/29/17 09:06 Dose: 10 mg Morphine Sulfate (Morphine) 2 - 4 mg IV Q3H PRN PRN PRN Reason: Severe Pain (pain scale 6-10) Last Admin: 05/29/17 06:18 Dose: 4 mg Morphine Sulfate (Morphine) 1 - 2 mg IV Q4H PRN PRN PRN Reason: Moderate Pain (pain scale 4-5) Last Admin: 05/29/17 11:11 Dose: 2 mg Morphine Sulfate (Ms Contin) 30 mg PO BID [facility] Last Admin: 05/29/17 10:30 Dose: 30 mg Ondansetron HCl (Zofran) 4 mg IV Q8H PRN PRN PRN Reason: NAUSEA Last Admin: 05/28/17 10:41 Dose: 4 mg Senna (Senokot) 1 tablet PO BID [facility] Last Admin: 05/29/17 09:06 Dose: 1 tablet Sertraline HCl (Zoloft) 50 mg PO DAILY [facility] Last Admin: 05/29/17 09:07 Dose: 50 mg Sodium Chloride () 5 - 30 ml IV UD PRN PRN Reason: SALINE FLUSH Last Admin: 05/29/17 06:24 Dose: 10 ml Assessment/Plan 56 year old M with a past medical history of hereditary progressive muscular dystrophy, cardiomyopathy, tracheostomy, s/p pacemaker, hypertension, chronic pain syndrome (narcotic dependent) recently admitted on 05/18/2017 and discharged on 05/19/2017 with chest pain. Patient is reported currently on Z- Jose for upper respiratory infection. Admitted with complaints of chest pain and respiratory distress. The EMS was called to his house with patient's was found suctioning tracheostomy. 1. HCAP, sputum cultures are growing gram-negative rods, staph aureus and possibly Pseudomonas, remains on cefepime IV( day 3 of antibiotics), vitals are stable, no fevers, will continue to monitor 2. Elevated troponins, likely due to type II NSTEMI/demand ischemia, last 2D echo was normal, discussed patient's case in detail and informally with Dr. Sanchez, patient would need to follow-up in the outpatient, continue on aspirin, ACEI. 3. Hypertension, controlled, on lisinopril, will continue to monitor with holding parameters for systolic blood pressure less than 110 4. Status post pacemaker 5. Status post tracheostomy, on mechanical ventilation, further recommendations and management by college coach 6. Progressive hereditary muscular dystrophy, complicated weaning off mechanical ventilation for meals, PEG tube being arranged for feeding 7. DVT PPx - Lovenox SC 8. Disposition: Possible DC to LTAC Code Visit Inpatient E&M: 68566 Subs Hosp L3
[2017-05-29] MEDS: fentaNYL 100 MCG/2 ML Ampul 200 MCG IV (16:30)
[2017-05-29] MEDS: Propofol 200 MG/20 ML Vial 380 MG IV BOLUS (16:30)
--- NOTE | 2017-05-29 17:20 | NURSING ---
Willard Kennedy and Tonny present w/SHOVE UP and endo RN in pt room. set up for PEG tube placement. 1630 begin procedure, PEG placed and verified per Dr. Kennedy at 1720. Diprovan 380mcq and Fentanyl 200mcq given IV push
--- NOTE | 2017-05-29 20:08 | CON.PCM_ITS ---
Problem List (1) Hereditary progressive muscular dystrophy Status: Chronic (2) Acute respiratory failure Status: Acute Reason for Consult Date of Consultation: 05/29/17 History of Present Illness: The patient is a 56 year old M with a history of progressive neurological disorder resulting in chronic recurring pulmonary infections for which he now has a tracheostomy and is currently on the ventilator. The patient had a previous PEG tube placed which has been removed. he is currently back in intensive care unit on the ventilator on antibiotics. I am consulted for replacement of a PEG tube given his ventilator dependency and risk for aspiration. the patient is not on anticoagulants. Past Medical History Past Medical History (Chronic Problems): Chronic Problems Cardiomyopathy (Chronic) HTN (hypertension) (Chronic) Irritable bowel syndrome (Chronic) History of urinary calculi (Chronic) Hereditary progressive muscular dystrophy (Chronic) Allergies No Known Allergies Allergy (Verified 05/27/17 03:49) Home Medications: Ambulatory Orders Medication Instructions Recorded Sertraline HCl [Zoloft] 50 mg PO DAILY 04/17/14 Albuterol Aerosols [Ventolin 2.5 mg INHALATION Q4H PRN #25 vial 07/01/14 Aerosols] BusPIRone [Buspar] 15 mg PO BID 07/01/14 Cholecalciferol (VIT D3) [Vitamin 2,000 unit PO DAILY 07/01/14 D3] Glycopyrrolate 1.5 mg PO BID 07/01/14 Lisinopril [Zestril] 5 mg PO DAILY 07/01/14 Montelukast [Singulair] 10 mg PO DAILY 08/11/14 Morphine Sulfate [Morphine Sulfate 30 mg PO BID 08/11/14 ER] Opium Tincture 0.4 ml GT QODAY 08/11/14 Aspirin [Aspirin, Baby] 81 mg PO DAILY@0800 03/09/15 Cyclobenzaprine [Flexeril] 10 mg PO TID PRN PRN 03/09/15 Hydrocodone/Acetaminophen 1 each PO TID PRN PRN 03/09/15 [Hydrocodon-Acetaminophn 10-325] Senna [Senokot] 1 tablet PO BID 03/09/15 Pantoprazole Sodium [Protonix] 40 mg PO DAILY #90 tab 05/19/17 Surgical History: noncontributory, - - tracheostomy, EGD and PEG Smoking Status: Never smoker - *Family History Maternal History Items: No pertinent history Paternal History Items: No pertinent history Review of Systems Unable to obtain accurate/complete ROS d/t: tracheostomy - Physical Exam General: Alert, Cooperative Neck: - - tracheostomy in place Lungs: Diminished, Rhonchi Cardiovascular: Regular rate, Regular Rhythm Abdomen: Bowel Sounds Present, Soft, - - previous PEG tube site nearly in the midline just below the xiphoid Vital Signs Temp Pulse Resp BP Pulse Ox 98.1 F 78 23 H 148/85 H 100 05/29/17 16:00 05/29/17 18:28 05/29/17 18:28 05/29/17 18:28 05/29/17 18:28 Oxygen Delivery Method Mechanical Ventilator Weight: 93.6 kg Body Mass Index (BMI) 29.1 Intake and Output for Last 24 Hours 05/27/17 05/28/17 05/29/17 23:59 23:59 23:59 Intake Total 860 / 860 3053.8 / 3053.8 3363 / 3363 Output Total 550 / 550 575 / 575 5300 / 5300 Balance 310 / 310 2478.8 / 2478.8 -1937 / -1937 Microbiology Past 72 Hours 05/28/17 04:20 Gram Stain - Final Sputum, Induced/Lukens Respiratory Culture - Preliminary GNR Poss Pseudomonas sp 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 Laboratory Tests Past 24 Hrs 05/29/17 05/29/17 05/29/17 06:00 06:00 06:00 WBC 7.8 RBC 4.48 L Hgb 11.2 L Hct 35.8 L MCV 79.9 L MCH 25.0 L MCHC 31.3 L RDW 16.6 H RDW Differential 47.5 H Plt Count 281 MPV 9.3 Immature Gran % (Auto) 0.300 Neut % (Auto) 71.5 H Lymph % (Auto) 21.3 [place] % (Auto) 6.3 Eos % (Auto) 0.3 Baso % (Auto) 0.3 Absolute Neuts (auto) 5.6 Absolute Lymphs (auto) 1.66 Total Counted Not Reportable PT 15.1 H INR 1.2 APTT 35.0 Sodium 137 Potassium 4.7 Chloride 107 Carbon Dioxide 15.0 L Anion Gap 15 BUN 3 L Creatinine < 0.15 L Estim Creat Clear Calc 532.04 Est GFR (MDRD) Af Amer 885 Est GFR (MDRD) Non-Af 731 BUN/Creatinine Ratio TNP Glucose 50 L Calcium 8.1 L Phosphorus Magnesium 05/29/17 06:00 WBC RBC Hgb Hct MCV MCH MCHC RDW RDW Differential Plt Count MPV Immature Gran % (Auto) Neut % (Auto) Lymph % (Auto) [place] % (Auto) Eos % (Auto) Baso % (Auto) Absolute Neuts (auto) Absolute Lymphs (auto) Total Counted PT INR APTT Sodium Potassium Chloride Carbon Dioxide Anion Gap BUN Creatinine Estim Creat Clear Calc Est GFR (MDRD) Af Amer Est GFR (MDRD) Non-Af BUN/Creatinine Ratio Glucose Calcium Phosphorus 2.2 L Magnesium 1.6 Assessment/Plan I plan perform upper endoscopy with PEG tube placement. Consent is obtained by Dr. Jose G Lancaster, bowling floor desk clerk from the patient's . The risks, benefits, alternatives and complications have been explained. The patient is currently on IV antibiotics. He is not on anticoagulants.
--- NOTE | 2017-05-29 20:08 | PCM.OPRPT ---
Problem List (1) Hereditary progressive muscular dystrophy Status: Chronic (2) Acute respiratory failure Status: Acute Report of Operation Date of Procedure: 05/29/17 Pre-Operative Diagnosis: chronic recurrent respiratory infections, tracheostomy, need for feeding access Post-Operative Diagnosis: chronic recurrent respiratory infections, tracheostomy, need for feeding access, challenging esophageal pharyngeal entry, but otherwise unremarkable esophagus, mild gastritis, successful PEG placement Surgery/Procedure Performed:: EGD with PEG tube placement cutter and presser: None Type of Anesthesia:: IV Sedation Specimen's removed: none Description of Procedure: The patient was maintained in the intensive care unit. Sign in was performed verifying patient, site, planned procedure, critical nursing information, The patient was monitored with cardiac, pulse oximetric, and blood pressure monitoring devices. Monitored anesthetic care was provided for sedation. Following IV sedation and after the oropharynx was sprayed with Cetacaine spray, a video gastroscope was inserted in the oropharynx. due to the patient's relatively dye lab technician sedation, tongue motion, and body habitus, entry into the esophagus was initially very challenging. Jaw thrust changing head angle and finally laying the patient more in his left lateral side down. Finally allowed the gastroscope to be inserted into the upper esophagus. Following this, the endoscope was advanced down the esophagus without difficulty. The scope was advanced through the stomach, through the pylorus through the duodenum to the proximal jejunum. Following this, 2 finger breaths below the left costal margin. A site was marked. The demonstrated indentation over the anterior aspect of the body of the stomach. The site was cleaned with Betadine. Local anesthetic was injected and a needle inserted into the stomach under endoscopic guidance. A wire was placed through the needle and grasped with a snare, brought up to the oropharynx. A Ponsky pull-type tube was then affixed to the wire. A small incision made on the anterior skin and the Ponsky pull-type tube was brought to the stomach and secured to the anterior abdominal wall. The wire was cut. A buttress was placed and the catheter secured at 3 cm. A roller clamp and feeding adapter applied. Repeat upper endoscopy was performed. This demonstrated good positioning of the mushroom of the feeding tube with no signs of bleeding. The remainder of the stomach and the esophagus were unremarkable The patient tolerated the procedure well and was brought to recovery in stable condition - Admit VTE Documentation VTE Present on Admission: No
--- NOTE | 2017-05-29 20:11 | OP.PCM_ITS ---
Problem List (1) Hereditary progressive muscular dystrophy Status: Chronic (2) Acute respiratory failure Status: Acute Report of Operation Date of Procedure: 05/29/17 Pre-Operative Diagnosis: chronic recurrent respiratory infections, tracheostomy , need for feeding access Post-Operative Diagnosis: chronic recurrent respiratory infections, tracheostomy , need for feeding access, challenging esophageal pharyngeal entry, but otherwise unremarkable esophagus, mild gastritis, successful PEG placement Surgery/Procedure Performed:: EGD with PEG tube placement retail assistant manager: None Type of Anesthesia:: IV Sedation Specimen's removed: none Description of Procedure: The patient was maintained in the intensive care unit. Sign in was performed verifying patient, site, planned procedure, critical nursing information, The patient was monitored with cardiac, pulse oximetric, and blood pressure monitoring devices. Monitored anesthetic care was provided for sedation. Following IV sedation and after the oropharynx was sprayed with Cetacaine spray , a video gastroscope was inserted in the oropharynx. due to the patient's relatively statistical methods teacher sedation, tongue motion, and body habitus, entry into the esophagus was initially very challenging. Jaw thrust changing head angle and finally laying the patient more in his left lateral side down. Finally allowed the gastroscope to be inserted into the upper esophagus. Following this, the endoscope was advanced down the esophagus without difficulty. The scope was advanced through the stomach, through the pylorus through the duodenum to the proximal jejunum. Following this, 2 finger breaths below the left costal margin. A site was marked. The demonstrated indentation over the anterior aspect of the body of the stomach. The site was cleaned with Betadine. Local anesthetic was injected and a needle inserted into the stomach under endoscopic guidance. A wire was placed through the needle and grasped with a snare, brought up to the oropharynx. A Ponsky pull-type tube was then affixed to the wire. A small incision made on the anterior skin and the Ponsky pull-type tube was brought to the stomach and secured to the anterior abdominal wall. The wire was cut. A buttress was placed and the catheter secured at 3 cm. A roller clamp and feeding adapter applied. Repeat upper endoscopy was performed. This demonstrated good positioning of the mushroom of the feeding tube with no signs of bleeding. The remainder of the stomach and the esophagus were unremarkable The patient tolerated the procedure well and was brought to recovery in stable condition - Admit VTE Documentation VTE Present on Admission: No
[2017-05-29] MEDS: Famotidine 20 MG Tablet PO (21:21)
[2017-05-29] MEDS: Vital AF 1.2 Cal Liquid 1,000 ML 70 ML GT (21:31)
[2017-05-29] MEDS: Atorvastatin Calcium 20 MG Tablet PO (21:31)
[2017-05-30] VITALS (37 sets, daily range): BP systolic 92–165; BP diastolic 43–101; PULSE 0–111; RESP 10–26; TEMP 36.4–36.9; O2SAT 67–100
[2017-05-30 04:14] LABS: Absolute Lymphocyte Count 1.55 X10^3/ul (0.83-4.51); Basophil# 0.01 X10^3/uL; Basophil% 0.1 % (0-1); Eosinophil# 0.02 X10^3/uL; Eosinophils% 0.2 % (0-5); Hematocrit 35.3 % (40-54); Hemoglobin 11.2 g/dl (13.0-16.5); Lymphocyte # 1.55 X10^3/ul (4.0); Lymphocyte % 18.8 % (19-41); Mean Corp Hgb Conc 31.7 g/gl (32-36); Mean Corpuscular Hgb 25.1 pg (27.0-32.0); Mean Platelet Vol. 9.1 fl (6.2-12.0); Monocyte# 0.67 X10^3/uL; Monocyte% 8.1 % (0-10); Neutrophil # 5.99 X10^3/uL (2.7-7.7); Neutrophil % 72.6 % (47-70); Platelet Count 289 K/mm3 (150-450); RBC Distribution Width CV 16.6 % (11.6-14.6); RBC Distribution Width SD 46.7 fl (35.1-43.9); Red Blood Count 4.47 M/mm3 (4.6-6.2); White Blood Count 8.3 K/mm3 (4.4-11.0)
[2017-05-30 04:15] LABS: POSITIVE COUNT NO; POSITIVE DIFFERENTIAL NO; POSITIVE MORPHOLOGY NO
[2017-05-30] MEDS: 0.9% Normal Saline 1,000 ML 125 ML IV ×3 (04:30→23:26)
[2017-05-30 04:31] LABS: Anion Gap 15 (5-15); BUN 2 mg/dL (7-18); Calcium,Total 7.9 mg/dL (8.5-10.1); Chloride 110 mmol/L (98-107); Creatinine, Serum < 0.15 mg/dL (0.70-1.30); EST Glomerular Filtration Rate 731 mL/min (>60); Est Glom Filt Rate - Afr Amer 885 mL/min (>60); Glucose 86 mg/dL (70-110); Magnesium 1.4 mg/dL (1.6-2.6); Phosphorus 1.7 mg/dL (2.5-4.9); Potassium 3.3 mmol/L (3.5-5.1); Sodium Level 139 mmol/L (136-145)
--- NOTE | 2017-05-30 06:45 | PCM.PN.INT ---
Subjective: Patient did well overnight. Patient did have a PEG tube placed yesterday at the bedside and tolerated well. Patient has been initiated on medications through the PEG with significant improvement in pain control. Patient continues to refuse multiple therapies including vest therapy, CPAP trials, etc. Patient with no complaints at this time. General: Alert, Cooperative, No apparent distress, - - Appears older than stated age. Obese. HEENT: Atraumatic, PERRLA, EOMI, Normocephalic, - - Slight injection without icterus Oral: Moist Mucosa, No Gingival or Mucosal Lesions/ Ulcerations Neck: Supple, No JVD, No Nodes, Trachea Midline, - - Trach is clean, dry and intact. Lungs: No rhonchi, No wheeze, No rales, Diminished, - - Symmetric expansion. No dullness to percussion. Cardiovascular: Normal S1, Normal S2, No murmurs, Irregular Rate, No rub noted, No Gallop, - - Periodic paced beats noted. Abdomen: Bowel Sounds Present, Soft, Non Tender, Non-Distended, Obese, - - PEG is clean, dry and intact. Extremities: No clubbing, No cyanosis, Capillary Refill Less than 3 Seconds, Edema Skin: - - No significant change compared to previous Musculoskeletal: No Tenderness to Palpation of Joints or Extremities, Muscle Wasting Lymphatic: No Cervical, Supraclavicular, or Inguinal Adenopathy Neurological: - - Grossly unchanged compared to previous Psych/Mental Status: Flat Affect, Depressed Vital Signs Temp Pulse Resp BP Pulse Ox 36.9 C 81 18 121/67 H 100 05/30/17 04:00 05/30/17 06:00 05/30/17 06:00 05/30/17 06:00 05/30/17 06:00 Oxygen Delivery Method Mechanical Ventilator Weight: 91.7 kg Body Mass Index (BMI) 29.1 Intake and Output for Last 24 Hours 05/28/17 05/29/17 05/30/17 23:59 23:59 23:59 Intake Total 3053.8 / 3053.8 3483 / 3483 2008 Output Total 575 / 575 5300 / 5300 2575 / 2575 Balance 2478.8 / 2478.8 -1817 / -1817 -566 / -566 Labs (Last 48 Hours) 05/29/17 05/29/17 05/29/17 06:00 06:00 06:00 WBC 7.8 RBC 4.48 L Hgb 11.2 L Hct 35.8 L MCV 79.9 L MCH 25.0 L MCHC 31.3 L RDW 16.6 H RDW Differential 47.5 H Plt Count 281 MPV 9.3 Immature Gran % (Auto) 0.300 Neut % (Auto) 71.5 H Lymph % (Auto) 21.3 [place] % (Auto) 6.3 Eos % (Auto) 0.3 Baso % (Auto) 0.3 Absolute Neuts (auto) 5.6 Absolute Lymphs (auto) 1.66 Total Counted Not Reportable PT 15.1 H INR 1.2 APTT 35.0 Sodium 137 Potassium 4.7 Chloride 107 Carbon Dioxide 15.0 L Anion Gap 15 BUN 3 L Creatinine < 0.15 L Estim Creat Clear Calc 532.04 Est GFR (MDRD) Af Amer 885 Est GFR (MDRD) Non-Af 731 BUN/Creatinine Ratio TNP Glucose 50 L Calcium 8.1 L Phosphorus Magnesium 05/29/17 05/30/17 05/30/17 06:00 03:55 03:55 WBC 8.3 RBC 4.47 L Hgb 11.2 L Hct 35.3 L MCV 79.0 L MCH 25.1 L MCHC 31.7 L RDW 16.6 H RDW Differential 46.7 H Plt Count 289 MPV 9.1 Immature Gran % (Auto) 0.200 Neut % (Auto) 72.6 H Lymph % (Auto) 18.8 L [place] % (Auto) 8.1 Eos % (Auto) 0.2 Baso % (Auto) 0.1 Absolute Neuts (auto) 6.0 Absolute Lymphs (auto) 1.55 Total Counted Not Reportable PT INR APTT Sodium 139 Potassium 3.3 L Chloride 110 H Carbon Dioxide 14.0 L Anion Gap 15 BUN 2 L Creatinine < 0.15 L Estim Creat Clear Calc 532.04 Est GFR (MDRD) Af Amer 885 Est GFR (MDRD) Non-Af 731 BUN/Creatinine Ratio TNP Glucose 86 Calcium 7.9 L Phosphorus 2.2 L 1.7 L Magnesium 1.6 1.4 L Microbiology 05/28/17 04:20 Sputum, Induced/Lukens Gram Stain - Final 05/28/17 04:20 Sputum, Induced/Lukens Respiratory Culture - Preliminary GNR Poss Pseudomonas sp 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 Await sensitivities, continue current antibiotics 2. Advance tube feeds, transition to PEG medications 3. Continue baseline blood pressure medications 4. Encourage breaks off ventilator as tolerated 5. Aggressive PT/OT/ST 6. Encourage compliance IMPRESSIONS: 1. Acute on chronic respiratory failure secondary to progressive muscular dystrophy/pneumonia Patient sputum culture is now showing polymicrobial infection indicating possible aspiration versus home ventilator associated pneumonia. Patient has been responding to therapy thus far, but is refusing any attempts at CPAP trials. Stressed to the patient that this is important to assess for muscle strength moving forward. Patient did get a PEG tube placed yesterday, which should help with nutritional status and stabilization of pain status. If patient persists in current state, evaluation by LTAC may be necessary. 2. Type II non-ST elevation RI No reported hypoxemia, but patient does present requiring continuous mechanical ventilation, which is different than his baseline. Patient has had a pacemaker [place] [address] Sanchez. Troponins appear to be trending down. Defer to hospitalist on whether Dr. Lopez should see the patient again. Patient may benefit from heart catheterization in the future. Troponins have trended down following optimization of hemodynamics indicating probable type II non-ST elevation RI. 3. Depression/hypertension/chronic pain syndrome/debility Complicates care, management, recovery and prognosis. Likely okay to continue with baseline medications. Patient will be transitioned over to PEG medications. Patient is back on his BuSpar, which should help with anxiety. Code Visit Inpatient E&M: [id number] [facility] Hosp L3
[2017-05-30] MEDS: Ipratropium/Albuterol Sulfate 3 ML AMPUL.NEB INHALATION ×2 (07:21→19:50)
[2017-05-30] MEDS: CHLORHEXIDINE GLUC 2% CLOTH 1 EACH TOWELETTE TOPICAL (08:30)
--- NOTE | 2017-05-30 09:05 | PCM.PN.HOSP ---
Subjective: Patient was seen and examined. Status post PEG tube yesterday, tube feeds running. No new complains. No acute events overnight. Waiting on insurance precertification for transfer to LTAC. Objective: PHYSICAL EXAM: General: Alert, Oriented x3, Cooperative, obese, not pale, not jaundiced. Remains on mechanical ventilator HEENT: Atraumatic, PERRLA, EOMI, Normocephalic Oral: Dry Mucosa Neck: Supple, No JVD, Negative Carotid Bruits, - - Tracheostomy Lungs: Normal air movement, Diminished Cardiovascular: Regular rate, Regular Rhythm, Normal S1, Normal S2, No murmurs Abdomen: Bowel Sounds Present, Soft, Non Tender, Non-Distended, No Hepato-splenomegaly, PEG tube site is clean, dry, non-tender Extremities: No edema Skin: No rashes Musculoskeletal: No Tenderness to Palpation of Joints or Extremities Neurological: Cranial nerves II-XII grossly intact Psych/Mental Status: Normal Affect, Appropriate Vitals/I&O's: Vital Signs Temp Pulse Resp BP Pulse Ox 98.4 F 86 12 121/67 H 80 05/30/17 04:00 05/30/17 07:21 05/30/17 07:21 05/30/17 06:00 05/30/17 07:00 Oxygen Delivery Method Mechanical Ventilator Weight: 91.7 kg Body Mass Index (BMI) 29.1 Intake and Output for Last 24 Hours 05/28/17 05/29/17 05/30/17 23:59 23:59 23:59 Intake Total 3053.8 / 3053.8 3483 / 3483 2008 Output Total 575 / 575 5300 / 5300 2575 / 2575 Balance 2478.8 / 2478.8 -1817 / -1817 -566 / -566 Microbiology Past 72 Hours 05/28/17 04:20 Sputum, Induced/Lukens Gram Stain - Final 05/28/17 04:20 Sputum, Induced/Lukens Respiratory Culture - Preliminary GNR Poss Pseudomonas sp GNR lactose terrazzo finisher helper 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 Laboratory Results 05/30/17 03:55: WBC 8.3, RBC 4.47 L, Hgb 11.2 L, Hct 35.3 L, MCV 79.0 L, MCH 25.1 L, MCHC 31.7 L, RDW 16.6 H, RDW Differential 46.7 H, Plt Count 289, MPV 9.1, Immature Gran % (Auto) 0.200, Neut % (Auto) 72.6 H, Lymph % (Auto) 18.8 L, [place] % (Auto) 8.1, Eos % (Auto) 0.2, Baso % (Auto) 0.1, Absolute Neuts (auto) 6.0, Absolute Lymphs (auto) 1.55, Total Counted Not Reportable 05/30/17 03:55: Sodium 139, Potassium 3.3 L, Chloride 110 H, Carbon Dioxide 14.0 L, Anion Gap 15, BUN 2 L, Creatinine < 0.15 L, Estim Creat Clear Calc 532.04, Est GFR (MDRD) Af Amer 885, Est GFR (MDRD) Non-Af 731, BUN/Creatinine Ratio TNP, Glucose 86, Calcium 7.9 L, Phosphorus 1.7 L, Magnesium 1.4 L Current Medications Al Hydroxide/Mg Hydroxide (Mylanta Ii) 30 ml GT Q4H PRN PRN PRN Reason: DYSPEPSIA Albuterol/Ipratropium (Duoneb) 3 ml INHALATION Q4H.RT PRN PRN Reason: SOB &/OR WHEEZING Last Admin: 05/30/17 07:21 Dose: 3 ml Aspirin (Aspirin, Baby) 81 mg GT DAILY@0800 [facility] Atorvastatin Calcium (Lipitor) 20 mg GT QHS [facility] Bisacodyl (Dulcolax) 10 mg RECTAL DAILY PRN PRN PRN Reason: CONSTIPATION Last Admin: 05/28/17 09:24 Dose: 10 mg Buspirone HCl (Buspirone Hcl) 15 mg GT BID [facility] Chlorhexidine Gluconate () 15 ml PO BID [facility] Last Admin: 05/29/17 21:57 Dose: 15 ml Chlorhexidine Gluconate () 1 each TOPICAL DAILY [facility] Last Admin: 05/29/17 21:44 Dose: Not Given Cholecalciferol (Vitamin D) 2,000 unit GT DAILY [facility] Cyclobenzaprine HCl (Flexeril) 10 mg GT TID PRN PRN PRN Reason: SPASMS Famotidine (Pepcid) 20 mg GT BID [facility] Glycopyrrolate (Robinul) 1.5 mg GT BID [facility] Heparin Sodium (Porcine) (Heparin Na) 5,000 unit SC Q8 [facility] Last Admin: 05/30/17 06:04 Dose: 5,000 u Sodium Chloride () 1,000 mls @ 125 mls/hr IV .Q8H [facility] Last Admin: 05/30/17 04:30 Dose: 125 mls/hr Cefepime HCl 2 gm/ Sodium (Chloride) 100 mls @ 200 mls/hr IV Q8 [facility] Last Admin: 05/30/17 06:00 Dose: 200 mls/hr Enteral Nutritional Formula (Vital Af 1.2 Remy Liquid) 1,000 mls @ 70 mls/hr GT .[id number] [facility] Last Admin: 05/29/17 21:31 Dose: 70 mls/hr Potassium Phosphate 40 mm/ (Sodium Chloride) 513.3333 mls @ 62.5 mls/hr IV X1 ONE Stop: 05/30/17 12:59 Last Admin: 05/30/17 06:04 Dose: 62.5 mls/hr Lisinopril (Zestril) 5 mg GT DAILY [facility] Magnesium Hydroxide (Milk Of Magnesia) 30 ml GT DAILY PRN PRN PRN Reason: Constipation Montelukast Sodium (Singulair) 10 mg GT DAILY [facility] Morphine Sulfate (Morphine) 1 - 2 mg IV Q4H PRN PRN PRN Reason: Moderate Pain (pain scale 4-5) Last Admin: 05/29/17 20:07 Dose: 2 mg Morphine Sulfate (Ms Contin) 30 mg PO BID [facility] Last Admin: 05/29/17 21:21 Dose: 30 mg Ondansetron HCl (Zofran) 4 mg IV Q8H PRN PRN PRN Reason: NAUSEA Last Admin: 05/28/17 10:41 Dose: 4 mg Senna (Senokot) 1 tablet GT BID [facility] Sertraline HCl (Zoloft) 50 mg GT DAILY [facility] Sodium Chloride () 5 - 30 ml IV UD PRN PRN Reason: SALINE FLUSH Last Admin: 05/29/17 20:08 Dose: 10 ml Assessment/Plan 56 year old M with a past medical history of hereditary progressive muscular dystrophy, cardiomyopathy, tracheostomy, s/p pacemaker, hypertension, chronic pain syndrome (narcotic dependent) recently admitted on 05/18/2017 and discharged on 05/19/2017 with chest pain. Admitted with complaints of chest pain and respiratory distress. The EMS was called to his house with patient's was found suctioning tracheostomy. 1. Acute on chronic respiratory failure secondary to HCAP, worsening progressive muscular dystrophy, remains on mechanical ventilation, management per repair specialist. 2. HCAP, sputum cultures are growing MRSA, Pseudomonas, on cefepime IV and Vancomycin, day 4 of antibiotics, vitals are stable, no fevers are seen 2. Elevated troponins, likely due to type II NSTEMI/demand ischemia, last 2D echo was normal, discussed with cardiology, Dr. Sanchez, patient would need to follow-up in the outpatient, continue on aspirin, ACEI, statin 3. Dysphagia related to progressive chronic respiratory failure, status post PEG tube for feeds and medication administration 4. Hypertension, controlled, on lisinopril, will continue to monitor with holding parameters for systolic blood pressure less than 110 5. Status post pacemaker 6. Status post tracheostomy, on mechanical ventilation, further recommendations and management by repair specialist 7. Progressive hereditary muscular dystrophy, complicated weaning off mechanical ventilation for meals, PEG tube being arranged for feeding 8. DVT PPx - Lovenox SC 9. Disposition: Possible DC to LTAC when bed is available. Code Visit Inpatient E&M: 04623 Subs Hosp L2
--- NOTE | 2017-05-30 09:40 | RAD_ITS ---
STUDY: X-RAY CHEST REASON FOR EXAM: Male, 56 years old. Right PICC line catheter placement. TECHNIQUE: Single AP portable view of the chest. COMPARISON: Comparison is made with prior examination dated May 28, 2017. FINDINGS: A right-sided PICC line catheter has been placed. The tip is in the right atrium. This should be withdrawn approximately 2 cm. A tracheostomy tube is seen and is unchanged. Once again, there is evidence of a bibasilar atelectasis and/or infiltrate worse in the left lung base. These have improved. Residual blunting of the left costophrenic angle. Normal size heart. A left-sided dual-chamber pacemaker is seen. Normal mediastinum and julissa. Normal visualized pulmonary arteries. Normal visualized aortic arch and descending thoracic aorta. Normal visualized thoracic spine. Normal visualized ribs, clavicles, and shoulders. There is no demonstrated abnormality of the visualized soft tissue structures of the upper abdomen. RAD/CXR for Line Placement IMPRESSION: The tip of the right PICC line catheter is in the right atrium. It should be pulled back approximately 2 cm. Electronically Signed: Mikey Angeles MD at 10:08 EST Tel [phone], Service support ,
--- NOTE | 2017-05-30 10:09 | NURSING ---
PICC line placed per Gutierrez Grant. CXR completed.
--- NOTE | 2017-05-30 10:32 | CASEMGMT ---
Intro role of CM to . Physicians had spoke with pt and re: LTAC referral. states they would like referral made to [facility] ([facility] in [place], [place]. Pt had been there a few years ago, and the has family there. Call to facility-Sarah flight operations coordinator said referral will need to go through Meryl Chowdhury from [facility] which is our area. Sarah will call [place] to notify. Referral faxed to [place] @ . [facility] [address] [place] [id number]
[2017-05-30] MEDS: Famotidine 20 MG Tablet GT ×2 (10:50→21:04)
[2017-05-30] MEDS: Aspirin 81 MG TAB.CHEW GT (10:50)
[2017-05-30] MEDS: Montelukast 10 MG Tablet GT (10:51)
[2017-05-30] MEDS: Glycopyrrolate 1 MG TABLET 1.5 MG GT ×2 (10:51→21:03)
[2017-05-30] MEDS: Lisinopril 5 MG Tablet GT (10:52)
[2017-05-30] MEDS: Sertraline 50 MG Tablet GT (10:52)
[2017-05-30] MEDS: Chlorhexidine 15 ML PO ×2 (11:17→21:36)
[2017-05-30] MEDS: Senna Tablet 1 TABLET GT ×2 (11:18→21:03)
--- NOTE | 2017-05-30 11:40 | CPS ---
Addendum entered and electronically signed by Emily Caballero, INVESTMENT BANKING MANAGER 05/30/17 17:17: pt's RR did increase toward end of trial and pt did become mildly diaphoretic. Original Note: trialed putting speaking valve on w/o O2 for 30 minutes without complications. Sx'd large amounts thick clear mucus from back of pt's throat. Pt was initally mildly anxious (but was distracted which appeared to calm him) by nurse keeping up a conversation with him.R.T. helped with changing inner cannula before placing pt back on vent at previous settings.
[2017-05-30] MEDS: Bisacodyl 10 MG Suppository RECTAL (14:17)
--- NOTE | 2017-05-30 16:45 | PCM.PACRNU ---
Pacer Nurse Hospital Visit Notes: Dual Chamber Pacemaker Evaluation and Reprogramming: Remote Latitude consult showed patient having underlying rhythm of CHB. Reprogramming completed at bedside ICU #7. Programmed AVSH off and shortened PVARP to 300/240 ms. Pt now tracking at a rate of 100 to 104 ppm. Battery longevity approx 11.5 yrs. STRUCTURAL DRAFTER=99%. Lead impedances, atrial sensing, and auto ventricular pace/sense threshold remain stable. Counters cleared. Dr. Lopez and Dr. Sanchez notified of above. Oanh Talbert RN - Pacer Check Procedure Procedures: [id number] PM Eval Dual
--- NOTE | 2017-05-30 17:14 | CPS ---
trialed on speaking valve for 32 minutes, pt tolerated better than this morning but became anxious so speaking valve was removed, cuff inflated and vent placed back on trach.
--- NOTE | 2017-05-30 17:27 | NURSING ---
off vent to speaking valve for 32 min. tolerated well w/much encouragement. skin remained pink/dry. respers stayed mid 20s w/sats near 100% on RA.
--- NOTE | 2017-05-30 18:01 | PN.SURG_ITS ---
Subjective: trach in place, patient resting - Physical Exam General: Alert, Cooperative Abdomen: Bowel Sounds Present, Soft, Non Tender - PEG site clean Vital Signs Temp Pulse Resp BP Pulse Ox 98.0 F 105 H 21 H 123/91 H 100 05/30/17 16:00 05/30/17 17:10 05/30/17 17:10 05/30/17 17:00 05/30/17 17:10 Oxygen Delivery Method Mechanical Ventilator Weight: 91.7 kg Body Mass Index (BMI) 29.1 Intake and Output for Last 24 Hours 05/28/17 05/29/17 05/30/17 23:59 23:59 23:59 Intake Total 3053.8 / 3053.8 3483 / 3483 3809 / 3809 Output Total 575 / 575 5300 / 5300 5675 / 5675 Balance 2478.8 / 2478.8 -1817 / -1817 -1866 / -1866 Microbiology Past 72 Hours 05/28/17 04:20 Gram Stain - Final Sputum, Induced/Lukens Respiratory Culture - Preliminary Pseudomonas aeroginosa GNR lactose mechanist Meth. resistant Staph. aureus Laboratory Tests Past 24 Hrs 05/30/17 05/30/17 03:55 03:55 WBC 8.3 RBC 4.47 L Hgb 11.2 L Hct 35.3 L MCV 79.0 L MCH 25.1 L MCHC 31.7 L RDW 16.6 H RDW Differential 46.7 H Plt Count 289 MPV 9.1 Immature Gran % (Auto) 0.200 Neut % (Auto) 72.6 H Lymph % (Auto) 18.[address] [place] % (Auto) 8.1 Eos % (Auto) 0.2 Baso % (Auto) 0.1 Absolute Neuts (auto) 6.0 Absolute Lymphs (auto) 1.55 Total Counted Not Reportable Sodium 139 Potassium 3.3 L Chloride 110 H Carbon Dioxide 14.0 L Anion Gap 15 BUN 2 L Creatinine < 0.15 L Estim Creat Clear Calc 532.04 Est GFR (MDRD) Af Amer 885 Est GFR (MDRD) Non-Af 731 BUN/Creatinine Ratio TNP Glucose 86 Calcium 7.9 L Phosphorus 1.7 L Magnesium 1.4 L Assessment/Plan POD # 1 s/ p upper endoscopy with PEG tube placement. The patient is currently tolerating tube feeds with no residuals, site clean. Will sign off for now. Thank you
[2017-05-30] MEDS: Atorvastatin Calcium 20 MG Tablet GT (21:04)
[2017-05-30] MEDS: Vital AF 1.2 Cal Liquid 1,000 ML 70 ML GT (21:52)
[2017-05-30] MEDS: Zolpidem Tartrate 5 MG Tablet 10 MG GT (23:26)
[2017-05-31] VITALS (38 sets, daily range): BP systolic 103–162; BP diastolic 65–88; PULSE 70–101; RESP 10–23; TEMP 36.6–37.1; O2SAT 94–100
[2017-05-31 05:00] LABS: Absolute Lymphocyte Count 1.45 X10^3/ul (0.83-4.51); Absolute Neutrophil Count 3.9 X10^3/uL (2.0-7.7); Anion Gap 10 (5-15); BUN 4 mg/dL (7-18); BUN/Creat Ratio 20.1 RATIO (10-20); Basophil# 0.02 X10^3/uL; Basophil% 0.3 % (0-1); Chloride 105 mmol/L (98-107); EST Glomerular Filtration Rate 528 mL/min (>60); Eosinophil# 0.05 X10^3/uL; Eosinophils% 0.8 % (0-5); Est Glom Filt Rate - Afr Amer 638 mL/min (>60); Glucose 150 mg/dL (70-110); Hematocrit 35.2 % (40-54); Hemoglobin 11.3 g/dl (13.0-16.5); Lymphocyte # 1.45 X10^3/ul (4.0); Lymphocyte % 23.4 % (19-41); Mean Corp Hgb Conc 32.1 g/gl (32-36); Mean Corpuscular Hgb 24.6 pg (27.0-32.0); Mean Corpuscular Volume 76.7 fL (80-94); Mean Platelet Vol. 8.8 fl (6.2-12.0); Monocyte% 11.3 % (0-10); Neutrophil # 3.94 X10^3/uL (2.7-7.7); Neutrophil % 63.7 % (47-70); Phosphorus 1.6 mg/dL (2.5-4.9); Platelet Count 272 K/mm3 (150-450); Potassium 3.5 mmol/L (3.5-5.1); RBC Distribution Width CV 16.3 % (11.6-14.6); RBC Distribution Width SD 45.6 fl (35.1-43.9); Red Blood Count 4.59 M/mm3 (4.6-6.2); Sodium Level 137 mmol/L (136-145); White Blood Count 6.2 K/mm3 (4.4-11.0)
--- NOTE | 2017-05-31 05:10 | RAD_ITS ---
STUDY: X-RAY CHEST REASON FOR EXAM: Male, 56 years old. Shortness of breath. TECHNIQUE: AP portable chest. COMPARISON: May 30, 2017. FINDINGS: Tracheostomy tube in satisfactory position. Right PICC line tip at junction superior vena cava and right atrium. No pneumothorax. Bibasilar linear density probably representing subsegmental atelectasis. No effusions. No pneumothorax. Low lung volumes.. Normal size heart. Normal mediastinum and julissa. Normal visualized pulmonary arteries. Normal visualized aortic arch and descending thoracic aorta. Normal visualized thoracic spine. Normal visualized ribs, clavicles, and shoulders. Cardiac pacemaker left hemithorax. There is no demonstrated abnormality of the visualized soft tissue structures of the upper abdomen. RAD/Chest 1 View (Portable) IMPRESSION: No acute cardiopulmonary disease. Electronically Signed: Leo Villarreal MD at 6:07 EST , Service support ,
[2017-05-31 05:16] LABS: POSITIVE COUNT NO; POSITIVE DIFFERENTIAL NO; POSITIVE MORPHOLOGY NO
[2017-05-31] MEDS: 0.9% NaCl Peripheral Flush Adult/Peds IV ×2 (05:40→21:09)
--- NOTE | 2017-05-31 05:49 | PCM.PN.INT ---
Subjective: Patient did well overnight. No acute issues were reported. Patient states pain is well controlled. Patient is tolerating tube feeds at full recommendations. Patient was able to come off the ventilator for approximately 30 minutes yesterday, but had to be reinitiated secondary to dyspnea. General: Alert, Cooperative, No apparent distress, - - Good ventilator synchrony. HEENT: Atraumatic, PERRLA, EOMI, Normocephalic, - - No scleral icterus or injection noted. Oral: Moist Mucosa, No Gingival or Mucosal Lesions/ Ulcerations Neck: Supple, No JVD, No Nodes, Trachea Midline Lungs: No rhonchi, No wheeze, No rales, Diminished, - - Symmetric expansion. Cardiovascular: Regular rate, Regular Rhythm, Normal S1, Normal S2, No murmurs, No rub noted, No Gallop Abdomen: Bowel Sounds Present, Soft, Non Tender, Non-Distended, Obese Extremities: No cyanosis, Capillary Refill Less than 3 Seconds, Edema Skin: - - No significant change compared to previous. PICC is clean, dry and intact. Musculoskeletal: No Tenderness to Palpation of Joints or Extremities, Muscle Wasting Lymphatic: No Cervical, Supraclavicular, or Inguinal Adenopathy Neurological: - - Grossly unchanged compared to previous Psych/Mental Status: Normal Affect, Appropriate Vital Signs Temp Pulse Resp BP Pulse Ox 36.7 C 70 12 120/66 99 05/31/17 05:00 05/31/17 05:00 05/31/17 05:00 05/31/17 05:00 05/31/17 05:00 Oxygen Delivery Method Mechanical Ventilator Weight: 91.7 kg Body Mass Index (BMI) 29.1 Intake and Output for Last 24 Hours 05/29/17 05/30/17 05/31/17 23:59 23:59 23:59 Intake Total 3483 / 3483 5634 / 5634 Output Total 5300 / 5300 6925 / 6925 Balance -1817 / -1817 -1291 / -1291 Labs (Last 48 Hours) 05/29/17 05/29/17 05/29/17 06:00 06:00 06:00 WBC 7.8 RBC 4.48 L Hgb 11.2 L Hct 35.8 L MCV 79.9 L MCH 25.0 L MCHC 31.3 L RDW 16.6 H RDW Differential 47.5 H Plt Count 281 MPV 9.3 Immature Gran % (Auto) 0.300 Neut % (Auto) 71.5 H Lymph % (Auto) 21.3 [place] % (Auto) 6.3 Eos % (Auto) 0.3 Baso % (Auto) 0.3 Absolute Neuts (auto) 5.6 Absolute Lymphs (auto) 1.66 Total Counted Not Reportable PT 15.1 H INR 1.2 APTT 35.0 Sodium 137 Potassium 4.7 Chloride 107 Carbon Dioxide 15.0 L Anion Gap 15 BUN 3 L Creatinine < 0.15 L Estim Creat Clear Calc 532.04 Est GFR (MDRD) Af Amer 885 Est GFR (MDRD) Non-Af 731 BUN/Creatinine Ratio TNP Glucose 50 L Calcium 8.1 L Phosphorus Magnesium 05/29/17 05/30/17 05/30/17 06:00 03:55 03:55 WBC 8.3 RBC 4.47 L Hgb 11.2 L Hct 35.3 L MCV 79.0 L MCH 25.1 L MCHC 31.7 L RDW 16.6 H RDW Differential 46.7 H Plt Count 289 MPV 9.1 Immature Gran % (Auto) 0.200 Neut % (Auto) 72.6 H Lymph % (Auto) 18.8 L [place] % (Auto) 8.1 Eos % (Auto) 0.2 Baso % (Auto) 0.1 Absolute Neuts (auto) 6.0 Absolute Lymphs (auto) 1.55 Total Counted Not Reportable PT INR APTT Sodium 139 Potassium 3.3 L Chloride 110 H Carbon Dioxide 14.0 L Anion Gap 15 BUN 2 L Creatinine < 0.15 L Estim Creat Clear Calc 532.04 Est GFR (MDRD) Af Amer 885 Est GFR (MDRD) Non-Af 731 BUN/Creatinine Ratio TNP Glucose 86 Calcium 7.9 L Phosphorus 2.2 L 1.7 L Magnesium 1.6 1.4 L 05/31/17 05/31/17 04:35 04:35 WBC 6.2 RBC 4.59 L Hgb 11.3 L Hct 35.2 L MCV 76.7 L MCH 24.6 L MCHC 32.1 RDW 16.3 H RDW Differential 45.6 H Plt Count 272 MPV 8.8 Immature Gran % (Auto) 0.500 Neut % (Auto) 63.7 Lymph % (Auto) 23.4 [place] % (Auto) 11.3 H Eos % (Auto) 0.8 Baso % (Auto) 0.3 Absolute Neuts (auto) 3.9 Absolute Lymphs (auto) 1.45 Total Counted Not Reportable PT INR APTT Sodium 137 Potassium 3.5 Chloride 105 Carbon Dioxide 22.0 Anion Gap 10 BUN 4 L Creatinine 0.20 L Estim Creat Clear Calc 399.00 Est GFR (MDRD) Af Amer 638 Est GFR (MDRD) Non-Af 528 BUN/Creatinine Ratio 20.1 H Glucose 150 H Calcium 8.0 L Phosphorus 1.6 L Magnesium 2.0 Microbiology 05/28/17 04:20 Sputum, Induced/Lukens Gram Stain - Final 05/28/17 04:20 Sputum, Induced/Lukens Respiratory Culture - Preliminary Pseudomonas aeroginosa GNR lactose race board attendant Meth. resistant Staph. aureus Assessment/Plan RECOMMENDATIONS: 1. Await sensitivities of GNR, continue current antibiotics 2. Continue tube feeds 3. Continue baseline blood pressure medications 4. Encourage breaks off ventilator as tolerated (1 hour goal today) 5. Aggressive PT/OT/ST 6. Encourage compliance IMPRESSIONS: 1. Acute on chronic respiratory failure secondary to progressive muscular dystrophy/pneumonia Patient sputum culture is now showing polymicrobial infection indicating possible aspiration versus home ventilator associated pneumonia. Patient was able to take 30 minutes off of the ventilator yesterday. Patient became dyspneic and had to be placed back on. Stressed to the patient that continued trials would be necessary. Patient with a polymicrobial pneumonia including gram-negative's. One gram-negative parviz is still not speciated. Patient has grown multidrug resistant Acinetobacter in the past. Patient appears to be improving on current therapy. Chest x-ray shows no new infiltrates. 2. Type II non-ST elevation CO No reported hypoxemia, but patient does present requiring continuous mechanical ventilation, which is different than his baseline. Patient has had a pacemaker [place] [address] Sanchez. Troponins appear to be trending down. Defer to hospitalist on whether Dr. Lopez should see the patient again. Patient may benefit from heart catheterization in the future. Troponins have trended down following optimization of hemodynamics indicating probable type II non-ST elevation CO. 3. Depression/hypertension/chronic pain syndrome/debility Complicates care, management, recovery and prognosis. Likely okay to continue with baseline medications. Patient will be transitioned over to PEG medications. Patient is back on his BuSpar, which has helped with anxiety. Code Visit Inpatient E&M: 96040 Subs Hosp L3
--- NOTE | 2017-05-31 05:55 | PN_ITS ---
Subjective: Patient did well overnight. No acute issues were reported. Patient states pain is well controlled. Patient is tolerating tube feeds at full recommendations. Patient was able to come off the ventilator for approximately 30 minutes yesterday, but had to be reinitiated secondary to dyspnea. General: Alert, Cooperative, No apparent distress, - - Good ventilator synchrony. HEENT: Atraumatic, PERRLA, EOMI, Normocephalic, - - No scleral icterus or injection noted. Oral: Moist Mucosa, No Gingival or Mucosal Lesions/ Ulcerations Neck: Supple, No JVD, No Nodes, Trachea Midline Lungs: No rhonchi, No wheeze, No rales, Diminished, - - Symmetric expansion. Cardiovascular: Regular rate, Regular Rhythm, Normal S1, Normal S2, No murmurs, No rub noted, No Gallop Abdomen: Bowel Sounds Present, Soft, Non Tender, Non-Distended, Obese Extremities: No cyanosis, Capillary Refill Less than 3 Seconds, Edema Skin: - - No significant change compared to previous. PICC is clean, dry and intact. Musculoskeletal: No Tenderness to Palpation of Joints or Extremities, Muscle Wasting Lymphatic: No Cervical, Supraclavicular, or Inguinal Adenopathy Neurological: - - Grossly unchanged compared to previous Psych/Mental Status: Normal Affect, Appropriate Vital Signs Temp Pulse Resp BP Pulse Ox 36.7 C 70 12 120/66 99 05/31/17 05:00 05/31/17 05:00 05/31/17 05:00 05/31/17 05:00 05/31/17 05:00 Oxygen Delivery Method Mechanical Ventilator Weight: 91.7 kg Body Mass Index (BMI) 29.1 Intake and Output for Last 24 Hours 05/29/17 05/30/17 05/31/17 23:59 23:59 23:59 Intake Total 3483 / 3483 5634 / 5634 Output Total 5300 / 5300 6925 / 6925 Balance -1817 / -1817 -1291 / -1291 Labs (Last 48 Hours) 05/29/17 05/29/17 05/29/17 06:00 06:00 06:00 WBC 7.8 RBC 4.48 L Hgb 11.2 L Hct 35.8 L MCV 79.9 L MCH 25.0 L MCHC 31.3 L RDW 16.6 H RDW Differential 47.5 H Plt Count 281 MPV 9.3 Immature Gran % (Auto) 0.300 Neut % (Auto) 71.5 H Lymph % (Auto) 21.3 Wilbarger % (Auto) 6.3 Eos % (Auto) 0.3 Baso % (Auto) 0.3 Absolute Neuts (auto) 5.6 Absolute Lymphs (auto) 1.66 Total Counted Not Reportable PT 15.1 H INR 1.2 APTT 35.0 Sodium 137 Potassium 4.7 Chloride 107 Carbon Dioxide 15.0 L Anion Gap 15 BUN 3 L Creatinine < 0.15 L Estim Creat Clear Calc 532.04 Est GFR (MDRD) Af Amer 885 Est GFR (MDRD) Non-Af 731 BUN/Creatinine Ratio TNP Glucose 50 L Calcium 8.1 L Phosphorus Magnesium 05/29/17 05/30/17 05/30/17 06:00 03:55 03:55 WBC 8.3 RBC 4.47 L Hgb 11.2 L Hct 35.3 L MCV 79.0 L MCH 25.1 L MCHC 31.7 L RDW 16.6 H RDW Differential 46.7 H Plt Count 289 MPV 9.1 Immature Gran % (Auto) 0.200 Neut % (Auto) 72.6 H Lymph % (Auto) 18.8 L Wilbarger % (Auto) 8.1 Eos % (Auto) 0.2 Baso % (Auto) 0.1 Absolute Neuts (auto) 6.0 Absolute Lymphs (auto) 1.55 Total Counted Not Reportable PT INR APTT Sodium 139 Potassium 3.3 L Chloride 110 H Carbon Dioxide 14.0 L Anion Gap 15 BUN 2 L Creatinine < 0.15 L Estim Creat Clear Calc 532.04 Est GFR (MDRD) Af Amer 885 Est GFR (MDRD) Non-Af 731 BUN/Creatinine Ratio TNP Glucose 86 Calcium 7.9 L Phosphorus 2.2 L 1.7 L Magnesium 1.6 1.4 L 05/31/17 05/31/17 04:35 04:35 WBC 6.2 RBC 4.59 L Hgb 11.3 L Hct 35.2 L MCV 76.7 L MCH 24.6 L MCHC 32.1 RDW 16.3 H RDW Differential 45.6 H Plt Count 272 MPV 8.8 Immature Gran % (Auto) 0.500 Neut % (Auto) 63.7 Lymph % (Auto) 23.4 Wilbarger % (Auto) 11.3 H Eos % (Auto) 0.8 Baso % (Auto) 0.3 Absolute Neuts (auto) 3.9 Absolute Lymphs (auto) 1.45 Total Counted Not Reportable PT INR APTT Sodium 137 Potassium 3.5 Chloride 105 Carbon Dioxide 22.0 Anion Gap 10 BUN 4 L Creatinine 0.20 L Estim Creat Clear Calc 399.00 Est GFR (MDRD) Af Amer 638 Est GFR (MDRD) Non-Af 528 BUN/Creatinine Ratio 20.1 H Glucose 150 H Calcium 8.0 L Phosphorus 1.6 L Magnesium 2.0 Microbiology 05/28/17 04:20 Sputum, Induced/Lukens Gram Stain - Final 05/28/17 04:20 Sputum, Induced/Lukens Respiratory Culture - Preliminary Pseudomonas aeroginosa GNR lactose pulmonary disease specialist Meth. resistant Staph. aureus Assessment/Plan RECOMMENDATIONS: 1. Await sensitivities of GNR, continue current antibiotics 2. Continue tube feeds 3. Continue baseline blood pressure medications 4. Encourage breaks off ventilator as tolerated (1 hour goal today) 5. Aggressive PT/OT/ST 6. Encourage compliance IMPRESSIONS: 1. Acute on chronic respiratory failure secondary to progressive muscular dystrophy/pneumonia Patient sputum culture is now showing polymicrobial infection indicating possible aspiration versus home ventilator associated pneumonia. Patient was able to take 30 minutes off of the ventilator yesterday. Patient became dyspneic and had to be placed back on. Stressed to the patient that continued trials would be necessary. Patient with a polymicrobial pneumonia including gram-negative's. One gram-negative parviz is still not speciated. Patient has grown multidrug resistant Acinetobacter in the past. Patient appears to be improving on current therapy. Chest x-ray shows no new infiltrates. 2. Type II non-ST elevation DE No reported hypoxemia, but patient does present requiring continuous mechanical ventilation, which is different than his baseline. Patient has had a pacemaker [place] [address] Sanchez. Troponins appear to be trending down. Defer to hospitalist on whether Dr. Lopez should see the patient again. Patient may benefit from heart catheterization in the future. Troponins have trended down following optimization of hemodynamics indicating probable type II non-ST elevation DE. 3. Depression/hypertension/chronic pain syndrome/debility Complicates care, management, recovery and prognosis. Likely okay to continue with baseline medications. Patient will be transitioned over to PEG medications. Patient is back on his BuSpar, which has helped with anxiety. Code Visit Inpatient E&M: 98497 Subs Hosp L3
[2017-05-31] MEDS: Ipratropium/Albuterol Sulfate 3 ML AMPUL.NEB INHALATION ×2 (07:28→19:45)
--- NOTE | 2017-05-31 07:38 | CPS ---
Vest treatment held per RN
--- NOTE | 2017-05-31 08:01 | PN_ITS ---
Subjective: Patient was seen and examined. No acute events overnight. Had Ambien last night and slept well. Not been off ventilator -becomes anxious. Objective: PHYSICAL EXAM: General: Alert, Oriented x3, Cooperative, obese, not pale, not jaundiced. Remains on mechanical ventilator HEENT: Atraumatic, PERRLA, EOMI, Normocephalic Oral: Dry Mucosa Neck: Supple, No JVD, Negative Carotid Bruits, - - Tracheostomy Lungs: Normal air movement, Diminished Cardiovascular: Regular rate, Regular Rhythm, Normal S1, Normal S2, No murmurs Abdomen: Bowel Sounds Present, Soft, Non Tender, Non-Distended, No Hepato- splenomegaly, PEG tube site is clean, dry, non-tender Extremities: No edema Skin: No rashes Musculoskeletal: No Tenderness to Palpation of Joints or Extremities Neurological: Cranial nerves II-XII grossly intact Psych/Mental Status: Normal Affect, Appropriate Vitals/I&O's: Vital Signs Temp Pulse Resp BP Pulse Ox 98.1 F 96 12 127/74 H 100 05/31/17 05:00 05/31/17 07:29 05/31/17 07:29 05/31/17 07:00 05/31/17 07:29 Oxygen Delivery Method Mechanical Ventilator Weight: 92 kg Body Mass Index (BMI) 29.1 Intake and Output for Last 24 Hours 05/29/17 05/30/17 05/31/17 23:59 23:59 23:59 Intake Total 3483 / 3483 5634 / 5634 1144 / 1144 Output Total 5300 / 5300 6925 / 6925 550 / 550 Balance -1817 / -1817 -1291 / -1291 594 / 594 Microbiology Past 72 Hours 05/28/17 04:20 Sputum, Induced/Lukens Gram Stain - Final 05/28/17 04:20 Sputum, Induced/Lukens Respiratory Culture - Final Pseudomonas aeroginosa Escherichia coli Meth. resistant Staph. aureus Laboratory Results 05/31/17 04:35: WBC 6.2, RBC 4.59 L, Hgb 11.3 L, Hct 35.2 L, MCV 76.7 L, MCH 24.6 L, MCHC 32.1, RDW 16.3 H, RDW Differential 45.6 H, Plt Count 272, MPV 8.8, Immature Gran % (Auto) 0.500, Neut % (Auto) 63.7, Lymph % (Auto) 23.4, Snyder % ( Auto) 11.3 H, Eos % (Auto) 0.8, Baso % (Auto) 0.3, Absolute Neuts (auto) 3.9, Absolute Lymphs (auto) 1.45, Total Counted Not Reportable 05/31/17 04:35: Sodium 137, Potassium 3.5, Chloride 105, Carbon Dioxide 22.0, Anion Gap 10, BUN 4 L, Creatinine 0.20 L, Estim Creat Clear Calc 399.00, Est GFR (MDRD) Af Amer 638, Est GFR (MDRD) Non-Af 528, BUN/Creatinine Ratio 20.1 H, Glucose 150 H, Calcium 8.0 L, Phosphorus 1.6 L, Magnesium 2.0 Current Medications Al Hydroxide/Mg Hydroxide (Mylanta Ii) 30 ml GT Q4H PRN PRN PRN Reason: DYSPEPSIA Albuterol/Ipratropium (Duoneb) 3 ml INHALATION Q4H.RT PRN PRN Reason: SOB &/OR WHEEZING Last Admin: 05/31/17 07:28 Dose: 3 ml Aspirin (Aspirin, Baby) 81 mg GT DAILY@0800 [facility] Last Admin: 05/30/17 10:50 Dose: 81 mg Atorvastatin Calcium (Lipitor) 20 mg GT QHS [facility] Last Admin: 05/30/17 21:04 Dose: 20 mg Bisacodyl (Dulcolax) 10 mg RECTAL DAILY PRN PRN PRN Reason: CONSTIPATION Last Admin: 05/30/17 14:17 Dose: 10 mg Buspirone HCl (Buspirone Hcl) 15 mg GT BID [facility] Last Admin: 05/30/17 21:04 Dose: 15 mg Chlorhexidine Gluconate () 15 ml PO BID [facility] Last Admin: 05/30/17 21:36 Dose: 15 ml Chlorhexidine Gluconate () 1 each TOPICAL DAILY [facility] Last Admin: 05/30/17 08:30 Dose: 1 each Cholecalciferol (Vitamin D) 2,000 unit GT DAILY [facility] Last Admin: 05/30/17 10:52 Dose: 2,000 unit Cyclobenzaprine HCl (Flexeril) 10 mg GT TID PRN PRN PRN Reason: SPASMS Famotidine (Pepcid) 20 mg GT BID [facility] Last Admin: 05/30/17 21:04 Dose: 20 mg Glycopyrrolate (Robinul) 1.5 mg GT BID [facility] Last Admin: 05/30/17 21:03 Dose: 1.5 mg Heparin Sodium (Porcine) (Heparin Na) 5,000 unit SC Q8 [facility] Last Admin: 05/31/17 05:39 Dose: 5,000 u Sodium Chloride () 1,000 mls @ 125 mls/hr IV .Q8H [facility] Last Admin: 05/30/17 23:26 Dose: 125 mls/hr Cefepime HCl 2 gm/ Sodium (Chloride) 100 mls @ 200 mls/hr IV Q8 [facility] Last Admin: 05/31/17 05:39 Dose: 200 mls/hr Enteral Nutritional Formula (Vital Af 1.2 Remy Liquid) 1,000 mls @ 70 mls/hr GT .[id number] [facility] Last Admin: 05/30/17 21:52 Dose: 70 mls/hr Vancomycin HCl 1,250 mg/ (Sodium Chloride) 275 mls @ 183.333 mls/hr IV Q8H [facility] Last Admin: 05/31/17 05:39 Dose: 183.333 mls/hr Lisinopril (Zestril) 5 mg GT DAILY [facility] Last Admin: 05/30/17 10:52 Dose: 5 mg Magnesium Hydroxide (Milk Of Magnesia) 30 ml GT DAILY PRN PRN PRN Reason: Constipation Montelukast Sodium (Singulair) 10 mg GT DAILY [facility] Last Admin: 05/30/17 10:51 Dose: 10 mg Morphine Sulfate (Ms Contin) 30 mg PO BID [facility] Last Admin: 05/30/17 21:04 Dose: 30 mg Ondansetron HCl (Zofran) 4 mg IV Q8H PRN PRN PRN Reason: NAUSEA Last Admin: 05/28/17 10:41 Dose: 4 mg Oxycodone HCl (Oxyir) 10 mg PO Q4H PRN PRN PRN Reason: BREAKTHROUGH PAIN (>4/10) Senna (Senokot) 1 tablet GT BID [facility] Last Admin: 05/30/17 21:03 Dose: 1 tablet Sertraline HCl (Zoloft) 50 mg GT DAILY [facility] Last Admin: 05/30/17 10:52 Dose: 50 mg Sodium Chloride () 5 - 30 ml IV UD PRN PRN Reason: SALINE FLUSH Last Admin: 05/31/17 05:40 Dose: 10 ml Assessment/Plan 56 year old M with a past medical history of hereditary progressive muscular dystrophy, cardiomyopathy, tracheostomy, s/p pacemaker, hypertension, chronic pain syndrome (narcotic dependent) recently admitted on 05/18/2017 and discharged on 05/19/2017 with chest pain. Admitted with complaints of chest pain and respiratory distress. The EMS was called to his house with patient's was found suctioning tracheostomy. 1. Acute on chronic respiratory failure secondary to HCAP, worsening progressive muscular dystrophy, remains on mechanical ventilation, management per security tech. 2. HCAP, sputum cultures are growing MRSA, Pseudomonas, on cefepime IV and Vancomycin, day 5 of antibiotics, vitals are stable, no fevers are seen 2. Elevated troponins, likely due to type II NSTEMI/demand ischemia, last 2D echo was normal, discussed with cardiology, Dr. Sanchez, patient would need to follow-up in the outpatient, continue on aspirin, ACEI, statin 3. Dysphagia related to progressive chronic respiratory failure, status post PEG tube for feeds and medication administration 4. Hypertension, controlled, on lisinopril, will continue to monitor with holding parameters for systolic blood pressure less than 110 5. Status post pacemaker 6. Status post tracheostomy, on mechanical ventilation, further recommendations and management by security tech 7. Progressive hereditary muscular dystrophy, complicated weaning off mechanical ventilation for meals, PEG tube being arranged for feeding 8. DVT PPx - Lovenox SC 9. Disposition: Possible DC to LTAC when bed is available. Code Visit Inpatient E&M: 34301 Subs Hosp L2
[2017-05-31] MEDS: 0.9% Normal Saline 1,000 ML 125 ML IV ×2 (10:39→16:22)
[2017-05-31] MEDS: Glycopyrrolate 1 MG TABLET 1.5 MG GT ×2 (10:41→21:06)
[2017-05-31] MEDS: Aspirin 81 MG TAB.CHEW GT (10:43)
[2017-05-31] MEDS: Montelukast 10 MG Tablet GT (10:43)
[2017-05-31] MEDS: Famotidine 20 MG Tablet GT ×2 (10:44→21:06)
[2017-05-31] MEDS: Lisinopril 5 MG Tablet GT (10:44)
[2017-05-31] MEDS: Senna Tablet 1 TABLET GT ×2 (10:45→21:06)
[2017-05-31] MEDS: Sertraline 50 MG Tablet GT (10:45)
[2017-05-31] MEDS: oxyCODONE 5 MG Tablet 10 MG PO ×2 (10:46→21:05)
[2017-05-31] MEDS: Chlorhexidine 15 ML PO ×2 (10:49→22:46)
--- NOTE | 2017-05-31 11:50 | CPS ---
vent on stand by patient has tried speaking value for a few minutes on just open track.
[2017-05-31] MEDS: Vital AF 1.2 Cal Liquid 1,000 ML 70 ML GT (14:59)
[2017-05-31] MEDS: CHLORHEXIDINE GLUC 2% CLOTH 1 EACH TOWELETTE TOPICAL (16:22)
--- NOTE | 2017-05-31 18:35 | NURSING ---
Pt feeding pump alarming at this time for flow error. pump turned off and back on. alarm continues to trigger. New pump brought up by pharmacy and tubing changed out.
[2017-05-31] MEDS: Atorvastatin Calcium 20 MG Tablet GT (21:13)
[2017-05-31] MEDS: Zolpidem Tartrate 5 MG Tablet PO (22:46)
[2017-06-01] VITALS (38 sets, daily range): BP systolic 95–149; BP diastolic 54–99; PULSE 63–100; RESP 10–22; TEMP 36.6–37.1; O2SAT 95–100
[2017-06-01] MEDS: oxyCODONE 5 MG Tablet 10 MG PO ×5 (01:40→23:33)
[2017-06-01] MEDS: 0.9% Normal Saline 1,000 ML 125 ML IV ×3 (01:41→17:22)
[2017-06-01] MEDS: 0.9% NaCl Peripheral Flush Adult/Peds IV (05:08)
[2017-06-01 05:32] LABS: Absolute Lymphocyte Count 1.49 X10^3/ul (0.83-4.51); Absolute Neutrophil Count 3.5 X10^3/uL (2.0-7.7); Basophil# 0.04 X10^3/uL; Basophil% 0.7 % (0-1); Eosinophil# 0.07 X10^3/uL; Eosinophils% 1.2 % (0-5); Hematocrit 32.1 % (40-54); Hemoglobin 10.6 g/dl (13.0-16.5); Lymphocyte # 1.49 X10^3/ul (4.0); Lymphocyte % 26.2 % (19-41); Mean Corpuscular Hgb 25.5 pg (27.0-32.0); Mean Corpuscular Volume 77.2 fL (80-94); Mean Platelet Vol. 9.2 fl (6.2-12.0); Monocyte# 0.53 X10^3/uL; Monocyte% 9.3 % (0-10); Neutrophil % 61.5 % (47-70); Platelet Count 287 K/mm3 (150-450); RBC Distribution Width CV 16.5 % (11.6-14.6); RBC Distribution Width SD 44.1 fl (35.1-43.9); Red Blood Count 4.16 M/mm3 (4.6-6.2); White Blood Count 5.7 K/mm3 (4.4-11.0)
[2017-06-01 05:33] LABS: POSITIVE COUNT NO; POSITIVE DIFFERENTIAL NO; POSITIVE MORPHOLOGY NO
[2017-06-01 05:43] LABS: Vancomycin, Trough Level 26.7 ug/mL (5.0-15.0)
[2017-06-01 05:49] LABS: Anion Gap 6 (5-15); BUN 6 mg/dL (7-18); Chloride 107 mmol/L (98-107); Creatinine, Serum < 0.15 mg/dL (0.70-1.30); EST Glomerular Filtration Rate 731 mL/min (>60); Est Glom Filt Rate - Afr Amer 885 mL/min (>60); Glucose 148 mg/dL (70-110); Magnesium 1.8 mg/dL (1.6-2.6); Phosphorus 1.1 mg/dL (2.5-4.9); Potassium 3.1 mmol/L (3.5-5.1); Sodium Level 141 mmol/L (136-145)
[2017-06-01] MEDS: Ipratropium/Albuterol Sulfate 3 ML AMPUL.NEB INHALATION ×2 (07:45→19:52)
--- NOTE | 2017-06-01 07:56 | PCM.PN.HOSP ---
Subjective: Patient was seen and examined. He is off the ventilator for 30 minutes yesterday. His ventilatory parameters are stable with minimal requirements. Currently getting chest physiotherapy. Patient denies any pain, says his pain control is better, denies any chest pain fever or chills Objective: PHYSICAL EXAM: General: Alert, Oriented x3, Cooperative, obese, not pale, not jaundiced. Remains on mechanical ventilator HEENT: Atraumatic, PERRLA, EOMI, Normocephalic Oral: Dry Mucosa Neck: Supple, No JVD, Negative Carotid Bruits, - - Tracheostomy Lungs: Normal air movement, Diminished Cardiovascular: Regular rate, Regular Rhythm, Normal S1, Normal S2, No murmurs Abdomen: Bowel Sounds Present, Soft, Non Tender, Non-Distended, No Hepato-splenomegaly, PEG tube site is clean, dry, non-tender Extremities: No edema Skin: No rashes Musculoskeletal: No Tenderness to Palpation of Joints or Extremities Neurological: Cranial nerves II-XII grossly intact Psych/Mental Status: Normal Affect, Appropriate Vitals/I&O's: Vital Signs Temp Pulse Resp BP Pulse Ox 98.7 F 82 12 115/63 100 06/01/17 04:00 06/01/17 07:00 06/01/17 07:00 06/01/17 07:00 06/01/17 07:00 Oxygen Delivery Method Mechanical Ventilator Weight: 91.9 kg Body Mass Index (BMI) 29.1 Intake and Output for Last 24 Hours 05/30/17 05/31/17 06/01/17 23:59 23:59 23:59 Intake Total 5634 / 5634 5032 / 5032 1239 / 1239 Output Total 6925 / 6925 3975 / 3975 1000 / 1000 Balance -1291 / -1291 1057 / 1057 239 / 239 Microbiology Past 72 Hours 05/28/17 04:20 Sputum, Induced/Lukens Gram Stain - Final 05/28/17 04:20 Sputum, Induced/Lukens Respiratory Culture - Final Pseudomonas aeroginosa Escherichia coli Meth. resistant Staph. aureus Laboratory Results 06/01/17 05:10: Vancomycin Trough 26.7 H 06/01/17 05:10: WBC 5.7, RBC 4.16 L, Hgb 10.6 L, Hct 32.1 L, MCV 77.2 L, MCH 25.5 L, MCHC 33.0, RDW 16.5 H, RDW Differential 44.1 H, Plt Count 287, MPV 9.2, Immature Gran % (Auto) 1.100 H, Neut % (Auto) 61.5, Lymph % (Auto) 26.2, Ness % (Auto) 9.3, Eos % (Auto) 1.2, Baso % (Auto) 0.7, Absolute Neuts (auto) 3.5, Absolute Lymphs (auto) 1.49, Total Counted Not Reportable 06/01/17 05:10: Sodium 141, Potassium 3.1 L, Chloride 107, Carbon Dioxide 28.0, Anion Gap 6, BUN 6 L, Creatinine < 0.15 L, Estim Creat Clear Calc 532.04, Est GFR (MDRD) Af Amer 885, Est GFR (MDRD) Non-Af 731, BUN/Creatinine Ratio TNP, Glucose 148 H, Calcium 8.0 L, Phosphorus 1.1 L*, Magnesium 1.8 Current Medications Al Hydroxide/Mg Hydroxide (Mylanta Ii) 30 ml GT Q4H PRN PRN PRN Reason: DYSPEPSIA Albuterol/Ipratropium (Duoneb) 3 ml INHALATION Q4H.RT PRN PRN Reason: SOB &/OR WHEEZING Last Admin: 06/01/17 07:45 Dose: 3 ml Aspirin (Aspirin, Baby) 81 mg GT DAILY@0800 [facility] Last Admin: 05/31/17 10:43 Dose: 81 mg Atorvastatin Calcium (Lipitor) 20 mg GT QHS [facility] Last Admin: 05/31/17 21:13 Dose: 20 mg Bisacodyl (Dulcolax) 10 mg RECTAL DAILY PRN PRN PRN Reason: CONSTIPATION Last Admin: 05/30/17 14:17 Dose: 10 mg Buspirone HCl (Buspirone Hcl) 15 mg GT BID [facility] Last Admin: 05/31/17 21:06 Dose: 15 mg Chlorhexidine Gluconate () 15 ml PO BID [facility] Last Admin: 05/31/17 22:46 Dose: 15 ml Chlorhexidine Gluconate () 1 each TOPICAL DAILY [facility] Last Admin: 05/31/17 16:22 Dose: 1 each Cholecalciferol (Vitamin D) 2,000 unit GT DAILY [facility] Last Admin: 05/31/17 10:40 Dose: 2,000 unit Clindamycin HCl (Cleocin) 450 mg GT TID [facility] Cyclobenzaprine HCl (Flexeril) 10 mg GT TID PRN PRN PRN Reason: SPASMS Famotidine (Pepcid) 20 mg GT BID [facility] Last Admin: 05/31/17 21:06 Dose: 20 mg Glycopyrrolate (Robinul) 1.5 mg GT BID [facility] Last Admin: 05/31/17 21:06 Dose: 1.5 mg Heparin Sodium (Porcine) (Heparin Na) 5,000 unit SC Q8 [facility] Last Admin: 06/01/17 05:07 Dose: 5,000 u Sodium Chloride () 1,000 mls @ 125 mls/hr IV .Q8H [facility] Last Admin: 06/01/17 01:41 Dose: 125 mls/hr Enteral Nutritional Formula (Vital Af 1.2 Remy Liquid) 1,000 mls @ 70 mls/hr GT .[id number] [facility] Last Admin: 06/01/17 06:34 Dose: Not Given Levofloxacin (Levaquin) 750 mg GT DAILY@0600 [facility] Lisinopril (Zestril) 5 mg GT DAILY [facility] Last Admin: 05/31/17 10:44 Dose: 5 mg Magnesium Hydroxide (Milk Of Magnesia) 30 ml GT DAILY PRN PRN PRN Reason: Constipation Montelukast Sodium (Singulair) 10 mg GT DAILY [facility] Last Admin: 05/31/17 10:43 Dose: 10 mg Morphine Sulfate (Ms Contin) 30 mg PO BID [facility] Last Admin: 05/31/17 21:59 Dose: Not Given Ondansetron HCl (Zofran) 4 mg IV Q8H PRN PRN PRN Reason: NAUSEA Last Admin: 05/28/17 10:41 Dose: 4 mg Oxycodone HCl (Oxyir) 10 mg PO Q4H PRN PRN PRN Reason: BREAKTHROUGH PAIN (>4/10) Last Admin: 06/01/17 01:40 Dose: 10 mg Potassium Phos/Sodium Phos (Neutra-Phos Packet) 2 packet PO 4X/DAY [facility] Stop: 06/03/17 22:01 Senna (Senokot) 1 tablet GT BID [facility] Last Admin: 05/31/17 21:06 Dose: 1 tablet Sertraline HCl (Zoloft) 50 mg GT DAILY [facility] Last Admin: 05/31/17 10:45 Dose: 50 mg Sodium Chloride () 5 - 30 ml IV UD PRN PRN Reason: SALINE FLUSH Last Admin: 06/01/17 05:08 Dose: 10 ml Zolpidem Tartrate (Ambien (Generic)) 5 mg PO QHS PRN PRN PRN Reason: ANXIETY/INSOMNIA Last Admin: 05/31/17 22:46 Dose: 5 mg Assessment/Plan 56 year old M with a past medical history of hereditary progressive muscular dystrophy, cardiomyopathy, s/p tracheostomy, s/p pacemaker, hypertension, chronic pain syndrome (narcotic dependent) recently admitted on 05/18/2017 and discharged on 05/19/2017 with chest pain. He was re-admitted on 05/27/17 with complaints of chest pain and respiratory distress. EMS was called to his house with patient's was found suctioning tracheostomy. In the ED, patient had a chest x-ray that did not show an infiltrate. He had a CT scan of the chest that however showed bilateral infiltrates. He has remained in ICU on mechanical ventilator since admission. 1. Acute on chronic respiratory failure secondary to HCAP and worsening progressive muscular dystrophy, remains on mechanical ventilation, minimal settings on ventilator, being weaned off mechanical ventilator slowly; was on ventilator for 30 minutes yesterday on room air, would continue management per solutions market consultant 2. MRSA/Pseudomonas HCAP, sputum cultures are growing MRSA, Pseudomonas, no leukocytosis, was on cefepime IV and Vancomycin, switched to Levaquin and clindamycin today, day 6 of antibiotics, vitals are stable, no fevers are seen 3. Hypokalemia, hypophosphatemia, repleted, recheck in a.m. 4. Elevated troponins, likely due to type II NSTEMI/demand ischemia, last 2D echo was normal, discussed with cardiology, Dr. Sanchez, patient would need to follow-up in the outpatient, continue on aspirin, ACEI, statin 5. Dysphagia related to progressive chronic respiratory failure, status post PEG tube for feeds and medication administration 6. Asymptomatic bacteriuria, urine cultures growing Mixed gram positive organisms, 7. Hypertension, controlled, remains on lisinopril, will continue to monitor with holding parameters for systolic blood pressure less than 110 8. Status post pacemaker 9. Status post tracheostomy, on mechanical ventilation, further recommendations and management by solutions market consultant 10. Progressive hereditary muscular dystrophy, complicated weaning off mechanical ventilation for meals, PEG tube being arranged for feeding 11. DVT PPx - Lovenox SC 12. Disposition: Possible DC to LTAC when bed is available. Code Visit Inpatient E&M: 35729 Subs Hosp L2
--- NOTE | 2017-06-01 08:06 | PN_ITS ---
Subjective: Patient was seen and examined. He is off the ventilator for 30 minutes yesterday. His ventilatory parameters are stable with minimal requirements. Currently getting chest physiotherapy. Patient denies any pain, says his pain control is better, denies any chest pain fever or chills Objective: PHYSICAL EXAM: General: Alert, Oriented x3, Cooperative, obese, not pale, not jaundiced. Remains on mechanical ventilator HEENT: Atraumatic, PERRLA, EOMI, Normocephalic Oral: Dry Mucosa Neck: Supple, No JVD, Negative Carotid Bruits, - - Tracheostomy Lungs: Normal air movement, Diminished Cardiovascular: Regular rate, Regular Rhythm, Normal S1, Normal S2, No murmurs Abdomen: Bowel Sounds Present, Soft, Non Tender, Non-Distended, No Hepato- splenomegaly, PEG tube site is clean, dry, non-tender Extremities: No edema Skin: No rashes Musculoskeletal: No Tenderness to Palpation of Joints or Extremities Neurological: Cranial nerves II-XII grossly intact Psych/Mental Status: Normal Affect, Appropriate Vitals/I&O's: Vital Signs Temp Pulse Resp BP Pulse Ox 98.7 F 82 12 115/63 100 06/01/17 04:00 06/01/17 07:00 06/01/17 07:00 06/01/17 07:00 06/01/17 07:00 Oxygen Delivery Method Mechanical Ventilator Weight: 91.9 kg Body Mass Index (BMI) 29.1 Intake and Output for Last 24 Hours 05/30/17 05/31/17 06/01/17 23:59 23:59 23:59 Intake Total 5634 / 5634 5032 / 5032 1239 / 1239 Output Total 6925 / 6925 3975 / 3975 1000 / 1000 Balance -1291 / -1291 1057 / 1057 239 / 239 Microbiology Past 72 Hours 05/28/17 04:20 Sputum, Induced/Lukens Gram Stain - Final 05/28/17 04:20 Sputum, Induced/Lukens Respiratory Culture - Final Pseudomonas aeroginosa Escherichia coli Meth. resistant Staph. aureus Laboratory Results 06/01/17 05:10: Vancomycin Trough 26.7 H 06/01/17 05:10: WBC 5.7, RBC 4.16 L, Hgb 10.6 L, Hct 32.1 L, MCV 77.2 L, MCH 25.5 L, MCHC 33.0, RDW 16.5 H, RDW Differential 44.1 H, Plt Count 287, MPV 9.2, Immature Gran % (Auto) 1.100 H, Neut % (Auto) 61.5, Lymph % (Auto) 26.2, [place] % (Auto) 9.3, Eos % (Auto) 1.2, Baso % (Auto) 0.7, Absolute Neuts (auto) 3.5, Absolute Lymphs (auto) 1.49, Total Counted Not Reportable 06/01/17 05:10: Sodium 141, Potassium 3.1 L, Chloride 107, Carbon Dioxide 28.0, Anion Gap 6, BUN 6 L, Creatinine < 0.15 L, Estim Creat Clear Calc 532.04, Est GFR (MDRD) Af Amer 885, Est GFR (MDRD) Non-Af 731, BUN/Creatinine Ratio TNP, Glucose 148 H, Calcium 8.0 L, Phosphorus 1.1 L*, Magnesium 1.8 Current Medications Al Hydroxide/Mg Hydroxide (Mylanta Ii) 30 ml GT Q4H PRN PRN PRN Reason: DYSPEPSIA Albuterol/Ipratropium (Duoneb) 3 ml INHALATION Q4H.RT PRN PRN Reason: SOB &/OR WHEEZING Last Admin: 06/01/17 07:45 Dose: 3 ml Aspirin (Aspirin, Baby) 81 mg GT DAILY@0800 [facility] Last Admin: 05/31/17 10:43 Dose: 81 mg Atorvastatin Calcium (Lipitor) 20 mg GT QHS [facility] Last Admin: 05/31/17 21:13 Dose: 20 mg Bisacodyl (Dulcolax) 10 mg RECTAL DAILY PRN PRN PRN Reason: CONSTIPATION Last Admin: 05/30/17 14:17 Dose: 10 mg Buspirone HCl (Buspirone Hcl) 15 mg GT BID [facility] Last Admin: 05/31/17 21:06 Dose: 15 mg Chlorhexidine Gluconate () 15 ml PO BID [facility] Last Admin: 05/31/17 22:46 Dose: 15 ml Chlorhexidine Gluconate () 1 each TOPICAL DAILY [facility] Last Admin: 05/31/17 16:22 Dose: 1 each Cholecalciferol (Vitamin D) 2,000 unit GT DAILY [facility] Last Admin: 05/31/17 10:40 Dose: 2,000 unit Clindamycin HCl (Cleocin) 450 mg GT TID [facility] Cyclobenzaprine HCl (Flexeril) 10 mg GT TID PRN PRN PRN Reason: SPASMS Famotidine (Pepcid) 20 mg GT BID [facility] Last Admin: 05/31/17 21:06 Dose: 20 mg Glycopyrrolate (Robinul) 1.5 mg GT BID [facility] Last Admin: 05/31/17 21:06 Dose: 1.5 mg Heparin Sodium (Porcine) (Heparin Na) 5,000 unit SC Q8 [facility] Last Admin: 06/01/17 05:07 Dose: 5,000 u Sodium Chloride () 1,000 mls @ 125 mls/hr IV .Q8H [facility] Last Admin: 06/01/17 01:41 Dose: 125 mls/hr Enteral Nutritional Formula (Vital Af 1.2 Remy Liquid) 1,000 mls @ 70 mls/hr GT .[id number] [facility] Last Admin: 06/01/17 06:34 Dose: Not Given Levofloxacin (Levaquin) 750 mg GT DAILY@0600 [facility] Lisinopril (Zestril) 5 mg GT DAILY [facility] Last Admin: 05/31/17 10:44 Dose: 5 mg Magnesium Hydroxide (Milk Of Magnesia) 30 ml GT DAILY PRN PRN PRN Reason: Constipation Montelukast Sodium (Singulair) 10 mg GT DAILY [facility] Last Admin: 05/31/17 10:43 Dose: 10 mg Morphine Sulfate (Ms Contin) 30 mg PO BID [facility] Last Admin: 05/31/17 21:59 Dose: Not Given Ondansetron HCl (Zofran) 4 mg IV Q8H PRN PRN PRN Reason: NAUSEA Last Admin: 05/28/17 10:41 Dose: 4 mg Oxycodone HCl (Oxyir) 10 mg PO Q4H PRN PRN PRN Reason: BREAKTHROUGH PAIN (>4/10) Last Admin: 06/01/17 01:40 Dose: 10 mg Potassium Phos/Sodium Phos (Neutra-Phos Packet) 2 packet PO 4X/DAY [facility] Stop: 06/03/17 22:01 Senna (Senokot) 1 tablet GT BID [facility] Last Admin: 05/31/17 21:06 Dose: 1 tablet Sertraline HCl (Zoloft) 50 mg GT DAILY [facility] Last Admin: 05/31/17 10:45 Dose: 50 mg Sodium Chloride () 5 - 30 ml IV UD PRN PRN Reason: SALINE FLUSH Last Admin: 06/01/17 05:08 Dose: 10 ml Zolpidem Tartrate (Ambien (Generic)) 5 mg PO QHS PRN PRN PRN Reason: ANXIETY/INSOMNIA Last Admin: 05/31/17 22:46 Dose: 5 mg Assessment/Plan 56 year old M with a past medical history of hereditary progressive muscular dystrophy, cardiomyopathy, s/p tracheostomy, s/p pacemaker, hypertension, chronic pain syndrome (narcotic dependent) recently admitted on 05/18/2017 and discharged on 05/19/2017 with chest pain. He was re-admitted on 05/27/17 with complaints of chest pain and respiratory distress. EMS was called to his house with patient's was found suctioning tracheostomy. In the ED, patient had a chest x-ray that did not show an infiltrate. He had a CT scan of the chest that however showed bilateral infiltrates. He has remained in ICU on mechanical ventilator since admission. 1. Acute on chronic respiratory failure secondary to HCAP and worsening progressive muscular dystrophy, remains on mechanical ventilation, minimal settings on ventilator, being weaned off mechanical ventilator slowly; was on ventilator for 30 minutes yesterday on room air, would continue management per orthopaedic general 2. MRSA/Pseudomonas HCAP, sputum cultures are growing MRSA, Pseudomonas, no leukocytosis, was on cefepime IV and Vancomycin, switched to Levaquin and clindamycin today, day 6 of antibiotics, vitals are stable, no fevers are seen 3. Hypokalemia, hypophosphatemia, repleted, recheck in a.m. 4. Elevated troponins, likely due to type II NSTEMI/demand ischemia, last 2D echo was normal, discussed with cardiology, Dr. Sanchez, patient would need to follow-up in the outpatient, continue on aspirin, ACEI, statin 5. Dysphagia related to progressive chronic respiratory failure, status post PEG tube for feeds and medication administration 6. Asymptomatic bacteriuria, urine cultures growing Mixed gram positive organisms, 7. Hypertension, controlled, remains on lisinopril, will continue to monitor with holding parameters for systolic blood pressure less than 110 8. Status post pacemaker 9. Status post tracheostomy, on mechanical ventilation, further recommendations and management by orthopaedic general 10. Progressive hereditary muscular dystrophy, complicated weaning off mechanical ventilation for meals, PEG tube being arranged for feeding 11. DVT PPx - Lovenox SC 12. Disposition: Possible DC to LTAC when bed is available. Code Visit Inpatient E&M: 06401 Subs Hosp L2
--- NOTE | 2017-06-01 08:35 | CPS ---
Patient weaned off the vent with speaking valve 12 minutes. Then became tired.
--- NOTE | 2017-06-01 08:35 | PCM.PN.INT ---
Subjective: Patient did well overnight. No acute issues were reported. Patient was able to come off the ventilator for approximately 30 minutes yesterday. Patient denies any pain for me this morning. Patient is currently undergoing evaluation for possible LTAC disposition, but insurance decision is not available at this time. General: Alert, Cooperative, No apparent distress, - - Appears older than stated age. Good vent synchrony noted. HEENT: Atraumatic, PERRLA, EOMI, Normocephalic, - - No scleral icterus or injection noted. Oral: Moist Mucosa, No Gingival or Mucosal Lesions/ Ulcerations Neck: Supple, No JVD, No Nodes, Trachea Midline Lungs: No rhonchi, No wheeze, No rales, Diminished, - - Symmetric expansion. No dullness to percussion. Cardiovascular: Regular rate, Regular Rhythm, Normal S1, Normal S2, No murmurs, No rub noted, No Gallop Abdomen: Bowel Sounds Present, Soft, Non Tender, Non-Distended, Obese, - - PEG is clean, dry and intact. Extremities: No cyanosis, Capillary Refill Less than 3 Seconds, Edema Skin: - - No significant change compared to previous Musculoskeletal: No Tenderness to Palpation of Joints or Extremities, Muscle Wasting Lymphatic: No Cervical, Supraclavicular, or Inguinal Adenopathy Neurological: - - No significant change compared to previous Psych/Mental Status: Normal Affect, Appropriate Vital Signs Temp Pulse Resp BP Pulse Ox 37.1 C 87 12 115/63 100 06/01/17 04:00 06/01/17 07:46 06/01/17 07:46 06/01/17 07:00 06/01/17 07:46 Oxygen Delivery Method Mechanical Ventilator Weight: 91.9 kg Body Mass Index (BMI) 29.1 Intake and Output for Last 24 Hours 05/30/17 05/31/17 06/01/17 23:59 23:59 23:59 Intake Total 5634 / 5634 5032 / 5032 1239 / 1239 Output Total 6925 / 6925 3975 / 3975 1000 / 1000 Balance -1291 / -1291 1057 / 1057 239 / 239 Labs (Last 48 Hours) 05/31/17 05/31/17 06/01/17 04:35 04:35 05:10 WBC 6.2 RBC 4.59 L Hgb 11.3 L Hct 35.2 L MCV 76.7 L MCH 24.6 L MCHC 32.1 RDW 16.3 H RDW Differential 45.6 H Plt Count 272 MPV 8.8 Immature Gran % (Auto) 0.500 Neut % (Auto) 63.7 Lymph % (Auto) 23.4 [place] % (Auto) 11.3 H Eos % (Auto) 0.8 Baso % (Auto) 0.3 Absolute Neuts (auto) 3.9 Absolute Lymphs (auto) 1.45 Total Counted Not Reportable Sodium 137 Potassium 3.5 Chloride 105 Carbon Dioxide 22.0 Anion Gap 10 BUN 4 L Creatinine 0.20 L Estim Creat Clear Calc 399.00 Est GFR (MDRD) Af Amer 638 Est GFR (MDRD) Non-Af 528 BUN/Creatinine Ratio 20.1 H Glucose 150 H Calcium 8.0 L Phosphorus 1.6 L Magnesium 2.0 Vancomycin Trough 26.7 H 06/01/17 06/01/17 05:10 05:10 WBC 5.7 RBC 4.16 L Hgb 10.6 L Hct 32.1 L MCV 77.2 L MCH 25.5 L MCHC 33.0 RDW 16.5 H RDW Differential 44.1 H Plt Count 287 MPV 9.2 Immature Gran % (Auto) 1.100 H Neut % (Auto) 61.5 Lymph % (Auto) 26.2 [place] % (Auto) 9.3 Eos % (Auto) 1.2 Baso % (Auto) 0.7 Absolute Neuts (auto) 3.5 Absolute Lymphs (auto) 1.49 Total Counted Not Reportable Sodium 141 Potassium 3.1 L Chloride 107 Carbon Dioxide 28.0 Anion Gap 6 BUN 6 L Creatinine < 0.15 L Estim Creat Clear Calc 532.04 Est GFR (MDRD) Af Amer 885 Est GFR (MDRD) Non-Af 731 BUN/Creatinine Ratio TNP Glucose 148 H Calcium 8.0 L Phosphorus 1.1 L* Magnesium 1.8 Vancomycin Trough Microbiology 05/28/17 04:20 Sputum, Induced/Lukens Gram Stain - Final 05/28/17 04:20 Sputum, Induced/Lukens Respiratory Culture - Final Pseudomonas aeroginosa Escherichia coli Meth. resistant Staph. aureus Assessment/Plan RECOMMENDATIONS: 1. Likely change antibiotics tomorrow given supratherapeutic vancomycin 2. Continue tube feeds and baseline blood pressure medications 3. Electrolyte repletion as indicated 4. Encourage breaks off ventilator as tolerated (1 hour goal today) 5. Aggressive PT/OT/ST 6. Encourage compliance IMPRESSIONS: 1. Acute on chronic respiratory failure secondary to progressive muscular dystrophy/pneumonia Patient with polymicrobial pneumonia that appears to be relatively sensitive. Vancomycin is currently supratherapeutic. Hold vancomycin for now. Possibly change antibiotics tomorrow to decrease spectrum. Stressed to the patient the importance of continued trials. Goal for today is to stay off the ventilator for 1 hour. Patient does have an LTAC disposition currently pending. 2. Type II non-ST elevation [place] No reported hypoxemia, but patient does present requiring continuous mechanical ventilation, which is different than his baseline. Patient has had a pac[place] [address] Sanchez. Troponins appear to be trending down. Defer to hospitalist on whether Dr. Lopez should see the patient again. Patient may benefit from heart catheterization in the future. Troponins have trended down following optimization of hemodynamics indicating probable type II non-ST elevation [place]. 3. Depression/hypertension/chronic pain syndrome/debility Complicates care, management, recovery and prognosis. Likely okay to continue with baseline medications. Patient will be transitioned over to PEG medications. Patient is back on his BuSpar, which has helped with anxiety. Code Visit Inpatient E&M: [id number] Subs Hosp L3
--- NOTE | 2017-06-01 08:37 | CPS ---
speaking valve in place.
--- NOTE | 2017-06-01 08:39 | PN_ITS ---
Subjective: Patient did well overnight. No acute issues were reported. Patient was able to come off the ventilator for approximately 30 minutes yesterday. Patient denies any pain for me this morning. Patient is currently undergoing evaluation for possible LTAC disposition, but insurance decision is not available at this time. General: Alert, Cooperative, No apparent distress, - - Appears older than stated age. Good vent synchrony noted. HEENT: Atraumatic, PERRLA, EOMI, Normocephalic, - - No scleral icterus or injection noted. Oral: Moist Mucosa, No Gingival or Mucosal Lesions/ Ulcerations Neck: Supple, No JVD, No Nodes, Trachea Midline Lungs: No rhonchi, No wheeze, No rales, Diminished, - - Symmetric expansion. No dullness to percussion. Cardiovascular: Regular rate, Regular Rhythm, Normal S1, Normal S2, No murmurs, No rub noted, No Gallop Abdomen: Bowel Sounds Present, Soft, Non Tender, Non-Distended, Obese, - - PEG is clean, dry and intact. Extremities: No cyanosis, Capillary Refill Less than 3 Seconds, Edema Skin: - - No significant change compared to previous Musculoskeletal: No Tenderness to Palpation of Joints or Extremities, Muscle Wasting Lymphatic: No Cervical, Supraclavicular, or Inguinal Adenopathy Neurological: - - No significant change compared to previous Psych/Mental Status: Normal Affect, Appropriate Vital Signs Temp Pulse Resp BP Pulse Ox 37.1 C 87 12 115/63 100 06/01/17 04:00 06/01/17 07:46 06/01/17 07:46 06/01/17 07:00 06/01/17 07:46 Oxygen Delivery Method Mechanical Ventilator Weight: 91.9 kg Body Mass Index (BMI) 29.1 Intake and Output for Last 24 Hours 05/30/17 05/31/17 06/01/17 23:59 23:59 23:59 Intake Total 5634 / 5634 5032 / 5032 1239 / 1239 Output Total 6925 / 6925 3975 / 3975 1000 / 1000 Balance -1291 / -1291 1057 / 1057 239 / 239 Labs (Last 48 Hours) 05/31/17 05/31/17 06/01/17 04:35 04:35 05:10 WBC 6.2 RBC 4.59 L Hgb 11.3 L Hct 35.2 L MCV 76.7 L MCH 24.6 L MCHC 32.1 RDW 16.3 H RDW Differential 45.6 H Plt Count 272 MPV 8.8 Immature Gran % (Auto) 0.500 Neut % (Auto) 63.7 Lymph % (Auto) 23.4 [place] % (Auto) 11.3 H Eos % (Auto) 0.8 Baso % (Auto) 0.3 Absolute Neuts (auto) 3.9 Absolute Lymphs (auto) 1.45 Total Counted Not Reportable Sodium 137 Potassium 3.5 Chloride 105 Carbon Dioxide 22.0 Anion Gap 10 BUN 4 L Creatinine 0.20 L Estim Creat Clear Calc 399.00 Est GFR (MDRD) Af Amer 638 Est GFR (MDRD) Non-Af 528 BUN/Creatinine Ratio 20.1 H Glucose 150 H Calcium 8.0 L Phosphorus 1.6 L Magnesium 2.0 Vancomycin Trough 26.7 H 06/01/17 06/01/17 05:10 05:10 WBC 5.7 RBC 4.16 L Hgb 10.6 L Hct 32.1 L MCV 77.2 L MCH 25.5 L MCHC 33.0 RDW 16.5 H RDW Differential 44.1 H Plt Count 287 MPV 9.2 Immature Gran % (Auto) 1.100 H Neut % (Auto) 61.5 Lymph % (Auto) 26.2 [place] % (Auto) 9.3 Eos % (Auto) 1.2 Baso % (Auto) 0.7 Absolute Neuts (auto) 3.5 Absolute Lymphs (auto) 1.49 Total Counted Not Reportable Sodium 141 Potassium 3.1 L Chloride 107 Carbon Dioxide 28.0 Anion Gap 6 BUN 6 L Creatinine < 0.15 L Estim Creat Clear Calc 532.04 Est GFR (MDRD) Af Amer 885 Est GFR (MDRD) Non-Af 731 BUN/Creatinine Ratio TNP Glucose 148 H Calcium 8.0 L Phosphorus 1.1 L* Magnesium 1.8 Vancomycin Trough Microbiology 05/28/17 04:20 Sputum, Induced/Lukens Gram Stain - Final 05/28/17 04:20 Sputum, Induced/Lukens Respiratory Culture - Final Pseudomonas aeroginosa Escherichia coli Meth. resistant Staph. aureus Assessment/Plan RECOMMENDATIONS: 1. Likely change antibiotics tomorrow given supratherapeutic vancomycin 2. Continue tube feeds and baseline blood pressure medications 3. Electrolyte repletion as indicated 4. Encourage breaks off ventilator as tolerated (1 hour goal today) 5. Aggressive PT/OT/ST 6. Encourage compliance IMPRESSIONS: 1. Acute on chronic respiratory failure secondary to progressive muscular dystrophy/pneumonia Patient with polymicrobial pneumonia that appears to be relatively sensitive. Vancomycin is currently supratherapeutic. Hold vancomycin for now. Possibly change antibiotics tomorrow to decrease spectrum. Stressed to the patient the importance of continued trials. Goal for today is to stay off the ventilator for 1 hour. Patient does have an LTAC disposition currently pending. 2. Type II non-ST elevation [place] No reported hypoxemia, but patient does present requiring continuous mechanical ventilation, which is different than his baseline. Patient has had a pac[place] [address] Sanchez. Troponins appear to be trending down. Defer to hospitalist on whether Dr. Lopez should see the patient again. Patient may benefit from heart catheterization in the future. Troponins have trended down following optimization of hemodynamics indicating probable type II non-ST elevation [place]. 3. Depression/hypertension/chronic pain syndrome/debility Complicates care, management, recovery and prognosis. Likely okay to continue with baseline medications. Patient will be transitioned over to PEG medications. Patient is back on his BuSpar, which has helped with anxiety. Code Visit Inpatient E&M: 00122 Subs Hosp L3
--- NOTE | 2017-06-01 08:39 | CPS ---
patient put back on ventilator post speaking valve trial.
[2017-06-01] MEDS: Aspirin 81 MG TAB.CHEW GT (10:05)
[2017-06-01] MEDS: levoFLOXacin 750 MG Tablet GT (10:06)
[2017-06-01] MEDS: Na Biphos/Potassium Phosphate PACKET 2 PACKET PO ×4 (10:07→21:56)
[2017-06-01] MEDS: Chlorhexidine 15 ML PO ×2 (10:07→21:54)
[2017-06-01] MEDS: Glycopyrrolate 1 MG TABLET 1.5 MG GT ×2 (10:08→21:56)
[2017-06-01] MEDS: Famotidine 20 MG Tablet GT ×2 (10:08→21:56)
[2017-06-01] MEDS: Montelukast 10 MG Tablet GT (10:09)
[2017-06-01] MEDS: Senna Tablet 1 TABLET GT ×2 (10:09→21:56)
[2017-06-01] MEDS: Lisinopril 5 MG Tablet GT (10:09)
[2017-06-01] MEDS: CHLORHEXIDINE GLUC 2% CLOTH 1 EACH TOWELETTE TOPICAL (10:15)
[2017-06-01] MEDS: Sertraline 50 MG Tablet GT (10:15)
[2017-06-01] MEDS: Vital AF 1.2 Cal Liquid 1,000 ML 70 ML GT (10:16)
--- NOTE | 2017-06-01 14:23 | CPS ---
Patient was on room air with Speaking Valve 1 hour and 15 minutes, tolerated well.
[2017-06-01] MEDS: Mag Hydrox/Al Hydrox/Simeth 30 ML UDC GT (14:28)
[2017-06-01] MEDS: Fleet Enema 1 ML RECTAL (16:02)
--- NOTE | 2017-06-01 17:56 | CPS ---
Patient spent 2 hour off the ventilator with speaking valve in place,
--- NOTE | 2017-06-01 20:05 | CPS ---
Patient taken off vent for vest and breathing tx, patient on PM valve tolerating it well Sherrie X [employer]
[2017-06-01] MEDS: Clindamycin HCl 150 MG Capsule 450 MG GT (21:54)
[2017-06-01] MEDS: Atorvastatin Calcium 20 MG Tablet GT (21:55)
[2017-06-01] MEDS: Zolpidem Tartrate 5 MG Tablet PO (21:56)
[2017-06-01] MEDS: Zolpidem Tartrate 5 MG Tablet GT (23:33)
[2017-06-02] VITALS (35 sets, daily range): BP systolic 102–143; BP diastolic 63–90; PULSE 64–98; RESP 10–22; TEMP 36.2–37.3; O2SAT 25–100
[2017-06-02] MEDS: 0.9% Normal Saline 1,000 ML 125 ML IV ×2 (01:13→09:15)
[2017-06-02] MEDS: levoFLOXacin 750 MG Tablet GT (05:27)
[2017-06-02] MEDS: Clindamycin HCl 150 MG Capsule 450 MG GT ×3 (05:27→21:57)
[2017-06-02] MEDS: oxyCODONE 5 MG Tablet 10 MG PO ×4 (05:28→20:13)
[2017-06-02 06:40] LABS: Albumin, Serum 2.2 g/dL (3.2-5.0); BUN 9 mg/dL (7-18); Calcium,Total 8.3 mg/dL (8.5-10.1); Chloride 105 mmol/L (98-107); Creatinine, Serum < 0.15 mg/dL (0.70-1.30); EST Glomerular Filtration Rate 731 mL/min (>60); Est Glom Filt Rate - Afr Amer 885 mL/min (>60); Glucose 136 mg/dL (70-110); Phosphorus 2.9 mg/dL (2.5-4.9); Potassium 4.1 mmol/L (3.5-5.1); Sodium Level 141 mmol/L (136-145)
--- NOTE | 2017-06-02 06:53 | PCM.PN.INT ---
Subjective: The patient was seen and examined at the bedside this morning. Events from the last 24 hours have been reviewed. The patient is currently afebrile, hemodynamically stable and maintaining appropriate oxygen saturations with an FiO2 requirement of 30%. The patient was only able to tolerate a short time period off of assist control yesterday. He does seem insistent this morning that he would like to be discharged home, instead of being considered for LTACH disposition. Objective: The patient's most recent lab work, culture data and imaging studies have all been personally reviewed. Sputum culture was positive for Pseudomonas, E. coli and MRSA. Chest CTA, dated May 27 revealed bilateral lower lobe airspace disease. Surface echocardiogram from 2014 revealed an LV ejection fraction of 55%. General: Alert, Cooperative, No apparent distress, - - Currently tolerating assist control mode mechanical ventilation. HEENT: Atraumatic, PERRLA, Normocephalic Oral: Moist Mucosa, No Gingival or Mucosal Lesions/ Ulcerations Neck: Supple, No Nodes, Trachea Midline, - - Tracheostomy site is C/D/I Lungs: No rhonchi, No wheeze, No rales, Diminished Cardiovascular: Regular rate, Regular Rhythm, Normal S1, Normal S2, No murmurs, No rub noted, No Gallop Abdomen: Bowel Sounds Present, Soft, Non Tender, Obese, - - PEG site is C/D/I Extremities: No clubbing, No cyanosis, Edema Skin: - - No significant change from previous Musculoskeletal: No Tenderness to Palpation of Joints or Extremities, No Muscle Wasting Lymphatic: No Cervical, Supraclavicular, or Inguinal Adenopathy Neurological: - - No focal deficits. Psych/Mental Status: Normal Affect, Appropriate Vital Signs Temp Pulse Resp BP Pulse Ox 98.9 F 64 14 139/75 H 100 06/02/17 04:00 06/02/17 06:00 06/02/17 06:00 06/02/17 06:00 06/02/17 05:00 Oxygen Delivery Method Mechanical Ventilator Weight: 202 lb 9.677 oz Body Mass Index (BMI) 29.1 Intake and Output for Last 24 Hours 05/31/17 06/01/17 06/02/17 23:59 23:59 23:59 Intake Total 5032 / 5032 5305 / 5305 1077 / 1077 Output Total 3975 / 3975 3165 / 3165 1100 / 1100 Balance 1057 / 1057 2140 / 2140 -23 / -23 Labs (Last 48 Hours) 06/01/17 06/01/17 06/01/17 05:10 05:10 05:10 WBC 5.7 RBC 4.16 L Hgb 10.6 L Hct 32.1 L MCV 77.2 L MCH 25.5 L MCHC 33.0 RDW 16.5 H RDW Differential 44.1 H Plt Count 287 MPV 9.2 Immature Gran % (Auto) 1.100 H Neut % (Auto) 61.5 Lymph % (Auto) 26.2 [place] % (Auto) 9.3 Eos % (Auto) 1.2 Baso % (Auto) 0.7 Absolute Neuts (auto) 3.5 Absolute Lymphs (auto) 1.49 Total Counted Not Reportable Sodium 141 Potassium 3.1 L Chloride 107 Carbon Dioxide 28.0 Anion Gap 6 BUN 6 L Creatinine < 0.15 L Estim Creat Clear Calc 532.04 Est GFR (MDRD) Af Amer 885 Est GFR (MDRD) Non-Af 731 BUN/Creatinine Ratio TNP Glucose 148 H Calcium 8.0 L Phosphorus 1.1 L* Magnesium 1.8 Albumin Vancomycin Trough 26.7 H 06/02/17 05:45 WBC RBC Hgb Hct MCV MCH MCHC RDW RDW Differential Plt Count MPV Immature Gran % (Auto) Neut % (Auto) Lymph % (Auto) [place] % (Auto) Eos % (Auto) Baso % (Auto) Absolute Neuts (auto) Absolute Lymphs (auto) Total Counted Sodium 141 Potassium 4.1 Chloride 105 Carbon Dioxide 29.0 Anion Gap BUN 9 Creatinine < 0.15 L Estim Creat Clear Calc 532.04 Est GFR (MDRD) Af Amer 885 Est GFR (MDRD) Non-Af 731 BUN/Creatinine Ratio TNP Glucose 136 H Calcium 8.3 L Phosphorus 2.9 Magnesium Albumin 2.2 L Vancomycin Trough Microbiology 05/28/17 04:20 Sputum, Induced/Lukens Gram Stain - Final 05/28/17 04:20 Sputum, Induced/Lukens Respiratory Culture - Final Pseudomonas aeroginosa Escherichia coli Meth. resistant Staph. aureus Clinical Impression(s) from Imaging Studies Chest X-Ray 05/27/17 04:02 IMPRESSION: Stable low lung volume. Compression of basilar parenchyma appears increased when compared to previous examination, an inflammatory/infectious process such as pneumonia is not excluded. Electronically Signed: Jenna Paula MD at 4:41 EST , Service support , Chest CTA 05/27/17 05:43 IMPRESSION: Infiltration in both lower lobes. There is no evidence of pulmonary embolism. Electronically Signed: Mikey Angeles MD at 8:01 EST Tel [phone], Service support , Chest X-Ray 05/28/17 05:55 IMPRESSION: Patchy left basilar infiltrate and/or atelectasis with a small left pleural effusion. Mild increased markings at the right lung base. Electronically Signed: Mikey Angeles MD at 9:21 EST Tel [phone], Service support , Chest X-Ray 05/30/17 09:40 IMPRESSION: The tip of the right PICC line catheter is in the right atrium. It should be pulled back approximately 2 cm. Electronically Signed: Mikey Angeles MD at 10:08 EST Tel [phone], Service support , Chest X-Ray 05/31/17 05:10 IMPRESSION: No acute cardiopulmonary disease. Electronically Signed: Leo Villarreal MD at 6:07 EST , Service support , Assessment/Plan RECOMMENDATIONS: 1. Wean from assist control to trach collar as tolerated. 2. Continue aggressive bronchopulmonary hygiene 3. Continue current antimicrobial regimen 4. Discontinue supplemental IV fluids. Continue tube feeds 5. Physical therapy to continue to work with patient today 6. LTACH disposition is pending IMPRESSIONS: 1. Acute on chronic respiratory failure secondary to progressive muscular dystrophy/pneumonia Patient with polymicrobial pneumonia that appears to be relatively sensitive. Antibiotics have been tailored and will be continued accordingly. The patient is severely deconditioned and is in need of aggressive physical therapy prior to consideration for his return to home. He will be weaned from full ventilatory support this morning as tolerated and placed on trach collar. Aggressive bronchopulmonary hygiene will be continued. 2. Type II non-ST elevation [place] Patient has had a pac[place] [address] Sanchez. Troponins have down trended. Continue current medical management. 3. Depression/hypertension/chronic pain syndrome/debility Complicates care, management, recovery and prognosis. Likely okay to continue with baseline medications. Patient will be transitioned over to PEG medications. Patient is back on his BuSpar, which has helped with anxiety. Aggressive physical therapy is indicated. This note was generated with [employer] dictation software. It may contain incorrect words, spelling, and punctuation that were not noted in checking the note before signing. Code Visit Inpatient E&M: 56780 Subs Hosp L3
--- NOTE | 2017-06-02 06:57 | PN_ITS ---
Subjective: The patient was seen and examined at the bedside this morning. Events from the last 24 hours have been reviewed. The patient is currently afebrile, hemodynamically stable and maintaining appropriate oxygen saturations with an FiO2 requirement of 30%. The patient was only able to tolerate a short time period off of assist control yesterday. He does seem insistent this morning that he would like to be discharged home, instead of being considered for LTACH disposition. Objective: The patient's most recent lab work, culture data and imaging studies have all been personally reviewed. Sputum culture was positive for Pseudomonas, E. coli and MRSA. Chest CTA, dated May 27 revealed bilateral lower lobe airspace disease. Surface echocardiogram from 2014 revealed an LV ejection fraction of 55%. General: Alert, Cooperative, No apparent distress, - - Currently tolerating assist control mode mechanical ventilation. HEENT: Atraumatic, PERRLA, Normocephalic Oral: Moist Mucosa, No Gingival or Mucosal Lesions/ Ulcerations Neck: Supple, No Nodes, Trachea Midline, - - Tracheostomy site is C/D/I Lungs: No rhonchi, No wheeze, No rales, Diminished Cardiovascular: Regular rate, Regular Rhythm, Normal S1, Normal S2, No murmurs, No rub noted, No Gallop Abdomen: Bowel Sounds Present, Soft, Non Tender, Obese, - - PEG site is C/D/I Extremities: No clubbing, No cyanosis, Edema Skin: - - No significant change from previous Musculoskeletal: No Tenderness to Palpation of Joints or Extremities, No Muscle Wasting Lymphatic: No Cervical, Supraclavicular, or Inguinal Adenopathy Neurological: - - No focal deficits. Psych/Mental Status: Normal Affect, Appropriate Vital Signs Temp Pulse Resp BP Pulse Ox 98.9 F 64 14 139/75 H 100 06/02/17 04:00 06/02/17 06:00 06/02/17 06:00 06/02/17 06:00 06/02/17 05:00 Oxygen Delivery Method Mechanical Ventilator Weight: 202 lb 9.677 oz Body Mass Index (BMI) 29.1 Intake and Output for Last 24 Hours 05/31/17 06/01/17 06/02/17 23:59 23:59 23:59 Intake Total 5032 / 5032 5305 / 5305 1077 / 1077 Output Total 3975 / 3975 3165 / 3165 1100 / 1100 Balance 1057 / 1057 2140 / 2140 -23 / -23 Labs (Last 48 Hours) 06/01/17 06/01/17 06/01/17 05:10 05:10 05:10 WBC 5.7 RBC 4.16 L Hgb 10.6 L Hct 32.1 L MCV 77.2 L MCH 25.5 L MCHC 33.0 RDW 16.5 H RDW Differential 44.1 H Plt Count 287 MPV 9.2 Immature Gran % (Auto) 1.100 H Neut % (Auto) 61.5 Lymph % (Auto) 26.2 [place] % (Auto) 9.3 Eos % (Auto) 1.2 Baso % (Auto) 0.7 Absolute Neuts (auto) 3.5 Absolute Lymphs (auto) 1.49 Total Counted Not Reportable Sodium 141 Potassium 3.1 L Chloride 107 Carbon Dioxide 28.0 Anion Gap 6 BUN 6 L Creatinine < 0.15 L Estim Creat Clear Calc 532.04 Est GFR (MDRD) Af Amer 885 Est GFR (MDRD) Non-Af 731 BUN/Creatinine Ratio TNP Glucose 148 H Calcium 8.0 L Phosphorus 1.1 L* Magnesium 1.8 Albumin Vancomycin Trough 26.7 H 06/02/17 05:45 WBC RBC Hgb Hct MCV MCH MCHC RDW RDW Differential Plt Count MPV Immature Gran % (Auto) Neut % (Auto) Lymph % (Auto) [place] % (Auto) Eos % (Auto) Baso % (Auto) Absolute Neuts (auto) Absolute Lymphs (auto) Total Counted Sodium 141 Potassium 4.1 Chloride 105 Carbon Dioxide 29.0 Anion Gap BUN 9 Creatinine < 0.15 L Estim Creat Clear Calc 532.04 Est GFR (MDRD) Af Amer 885 Est GFR (MDRD) Non-Af 731 BUN/Creatinine Ratio TNP Glucose 136 H Calcium 8.3 L Phosphorus 2.9 Magnesium Albumin 2.2 L Vancomycin Trough Microbiology 05/28/17 04:20 Sputum, Induced/Lukens Gram Stain - Final 05/28/17 04:20 Sputum, Induced/Lukens Respiratory Culture - Final Pseudomonas aeroginosa Escherichia coli Meth. resistant Staph. aureus Clinical Impression(s) from Imaging Studies Chest X-Ray 05/27/17 04:02 IMPRESSION: Stable low lung volume. Compression of basilar parenchyma appears increased when compared to previous examination, an inflammatory/infectious process such as pneumonia is not excluded. Electronically Signed: Jenna Paula MD at 4:41 EST , Service support , Chest CTA 05/27/17 05:43 IMPRESSION: Infiltration in both lower lobes. There is no evidence of pulmonary embolism. Electronically Signed: Mikey Angeles MD at 8:01 EST Tel [phone], Service support , Chest X-Ray 05/28/17 05:55 IMPRESSION: Patchy left basilar infiltrate and/or atelectasis with a small left pleural effusion. Mild increased markings at the right lung base. Electronically Signed: Mikey Angeles MD at 9:21 EST Tel [phone], Service support , Chest X-Ray 05/30/17 09:40 IMPRESSION: The tip of the right PICC line catheter is in the right atrium. It should be pulled back approximately 2 cm. Electronically Signed: Mikey Angeles MD at 10:08 EST Tel [phone], Service support , Chest X-Ray 05/31/17 05:10 IMPRESSION: No acute cardiopulmonary disease. Electronically Signed: Leo Villarreal MD at 6:07 EST , Service support , Assessment/Plan RECOMMENDATIONS: 1. Wean from assist control to trach collar as tolerated. 2. Continue aggressive bronchopulmonary hygiene 3. Continue current antimicrobial regimen 4. Discontinue supplemental IV fluids. Continue tube feeds 5. Physical therapy to continue to work with patient today 6. LTACH disposition is pending IMPRESSIONS: 1. Acute on chronic respiratory failure secondary to progressive muscular dystrophy/pneumonia Patient with polymicrobial pneumonia that appears to be relatively sensitive. Antibiotics have been tailored and will be continued accordingly. The patient is severely deconditioned and is in need of aggressive physical therapy prior to consideration for his return to home. He will be weaned from full ventilatory support this morning as tolerated and placed on trach collar. Aggressive bronchopulmonary hygiene will be continued. 2. Type II non-ST elevation CT Patient has had a pacemaker [place] [address] Sanchez. Troponins have down trended. Continue current medical management. 3. Depression/hypertension/chronic pain syndrome/debility Complicates care, management, recovery and prognosis. Likely okay to continue with baseline medications. Patient will be transitioned over to PEG medications. Patient is back on his BuSpar, which has helped with anxiety. Aggressive physical therapy is indicated. This note was generated with [employer] dictation software. It may contain incorrect words, spelling, and punctuation that were not noted in checking the note before signing. Code Visit Inpatient E&M: 77506 Subs Hosp L3
--- NOTE | 2017-06-02 07:24 | PN_ITS ---
Subjective: Patient is a 56-year-old gentleman with multiple comorbidities including progressive muscular dystrophy, s/p tracheostomy, admitted with acute respiratory distress. Imaging studies on admission demonstrated bilateral infiltrate sputum cultures positive for MRSA as well as Pseudomonas Objective: GENERAL: Awake and in no apparent distress. HEENT: Color in place NECK; supple, normal thyroid, . CHEST: Diminished to auscultation bilaterally, HEART: Regular S1 S2, no audible murmurs ABDOMEN: soft, non-tender, normoactive bowel sounds, RECTAL: deferred EXTREMITIES: No clubbing, no cyanosis. COMMUNITY SUPPORT SPECIALIST: Awake, oriented to place and person, SKIN: No rash Vitals/I&O's: Vital Signs Temp Pulse Resp BP Pulse Ox 98.9 F 64 14 139/75 H 100 06/02/17 04:00 06/02/17 06:00 06/02/17 06:00 06/02/17 06:00 06/02/17 05:00 Oxygen Delivery Method Mechanical Ventilator Weight: 91.9 kg Body Mass Index (BMI) 29.1 Intake and Output for Last 24 Hours 05/31/17 06/01/17 06/02/17 23:59 23:59 23:59 Intake Total 5032 / 5032 5305 / 5305 1077 / 1077 Output Total 3975 / 3975 3165 / 3165 1100 / 1100 Balance 1057 / 1057 2140 / 2140 -23 / -23 Microbiology Past 72 Hours 05/28/17 04:20 Sputum, Induced/Lukens Gram Stain - Final 05/28/17 04:20 Sputum, Induced/Lukens Respiratory Culture - Final Pseudomonas aeroginosa Escherichia coli Meth. resistant Staph. aureus Laboratory Results 06/02/17 05:45: Sodium 141, Potassium 4.1, Chloride 105, Carbon Dioxide 29.0, BUN 9, Creatinine < 0.15 L, Estim Creat Clear Calc 532.04, Est GFR (MDRD) Af Amer 885, Est GFR (MDRD) Non-Af 731, BUN/Creatinine Ratio TNP, Glucose 136 H, Calcium 8.3 L, Phosphorus 2.9, Albumin 2.2 L Current Medications Al Hydroxide/Mg Hydroxide (Mylanta Ii) 30 ml GT Q4H PRN PRN PRN Reason: DYSPEPSIA Last Admin: 06/01/17 14:28 Dose: 30 ml Albuterol/Ipratropium (Duoneb) 3 ml INHALATION Q4H.RT PRN PRN Reason: SOB &/OR WHEEZING Last Admin: 06/01/17 19:52 Dose: 3 ml Aspirin (Aspirin, Baby) 81 mg GT DAILY@0800 [facility] Last Admin: 06/01/17 10:05 Dose: 81 mg Atorvastatin Calcium (Lipitor) 20 mg GT QHS [facility] Last Admin: 06/01/17 21:55 Dose: 20 mg Bisacodyl (Dulcolax) 10 mg RECTAL DAILY PRN PRN PRN Reason: CONSTIPATION Last Admin: 05/30/17 14:17 Dose: 10 mg Buspirone HCl (Buspirone Hcl) 15 mg GT BID [facility] Last Admin: 06/01/17 21:54 Dose: 15 mg Chlorhexidine Gluconate () 15 ml PO BID [facility] Last Admin: 06/01/17 21:54 Dose: 15 ml Chlorhexidine Gluconate () 1 each TOPICAL DAILY [facility] Last Admin: 06/01/17 10:15 Dose: 1 each Cholecalciferol (Vitamin D) 2,000 unit GT DAILY [facility] Last Admin: 06/01/17 10:09 Dose: 2,000 unit Clindamycin HCl (Cleocin) 450 mg GT TID [facility] Last Admin: 06/02/17 05:27 Dose: 450 mg Cyclobenzaprine HCl (Flexeril) 10 mg GT TID PRN PRN PRN Reason: SPASMS Famotidine (Pepcid) 20 mg GT BID [facility] Last Admin: 06/01/17 21:56 Dose: 20 mg Glycopyrrolate (Robinul) 1.5 mg GT BID [facility] Last Admin: 06/01/17 21:56 Dose: 1.5 mg Heparin Sodium (Porcine) (Heparin Na) 5,000 unit SC Q8 [facility] Last Admin: 06/02/17 05:27 Dose: 5,000 u Sodium Chloride () 1,000 mls @ 125 mls/hr IV .Q8H [facility] Last Admin: 06/02/17 01:13 Dose: 125 mls/hr Enteral Nutritional Formula (Vital Af 1.2 Remy Liquid) 1,000 mls @ 70 mls/hr GT .[id number] [facility] Last Admin: 06/01/17 21:46 Dose: Not Given Levofloxacin (Levaquin) 750 mg GT DAILY@0600 [facility] Last Admin: 06/02/17 05:27 Dose: 750 mg Lisinopril (Zestril) 5 mg GT DAILY [facility] Last Admin: 06/01/17 10:09 Dose: 5 mg Magnesium Hydroxide (Milk Of Magnesia) 30 ml GT DAILY PRN PRN PRN Reason: Constipation Montelukast Sodium (Singulair) 10 mg GT DAILY [facility] Last Admin: 06/01/17 10:09 Dose: 10 mg Morphine Sulfate (Ms Contin) 30 mg PO BID [facility] Last Admin: 06/01/17 21:55 Dose: Not Given Ondansetron HCl (Zofran) 4 mg IV Q8H PRN PRN PRN Reason: NAUSEA Last Admin: 05/28/17 10:41 Dose: 4 mg Oxycodone HCl (Oxyir) 10 mg PO Q4H PRN PRN PRN Reason: BREAKTHROUGH PAIN (>4/10) Last Admin: 06/02/17 05:28 Dose: 10 mg Potassium Phos/Sodium Phos (Neutra-Phos Packet) 2 packet PO 4X/DAY [facility] Stop: 06/03/17 22:01 Last Admin: 06/01/17 21:56 Dose: 2 packet Senna (Senokot) 1 tablet GT BID [facility] Last Admin: 06/01/17 21:56 Dose: 1 tablet Sertraline HCl (Zoloft) 50 mg GT DAILY [facility] Last Admin: 06/01/17 10:15 Dose: 50 mg Sodium Biphosphate/Sodium Phosphate (Fleet Enema) 1 bottle RECTAL DAILY PRN PRN Reason: Constipation Last Admin: 06/01/17 16:02 Dose: 1 bottle Sodium Chloride () 5 - 30 ml IV UD PRN PRN Reason: SALINE FLUSH Last Admin: 06/01/17 05:08 Dose: 10 ml Zolpidem Tartrate (Ambien (Generic)) 5 mg PO QHS PRN PRN PRN Reason: ANXIETY/INSOMNIA Last Admin: 06/01/17 21:56 Dose: 5 mg Assessment/Plan Patient is a 56-year-old gentleman with multiple comorbidities including progressive muscular dystrophy, s/p tracheostomy, admitted with acute respiratory distress. Imaging studies on admission demonstrated bilateral infiltrate sputum cultures positive for MRSA as well as Pseudomonas 1. Acute on chronic respiratory failure secondary to worsening progressive muscular dystrophy as well as healthcare acquired pneumonia. Patient is being managed on the vent with consultation placed to intensive care/pulmonary medicine 2. Healthcare acquired pneumonia secondary to MRSA as well as Pseudomonas patient has been managed with clindamycin as well as Levaquin 3. Progressive muscular dystrophy status post trach as well as PEG tube placement requested for PT OT as tolerated 4. Severe hypophosphatemia repleted per protocol 5. Hypokalemia corrected per protocol 6. Acute non-ST [place] type II secondary to demand ischemia as a result of patient underlying infection consult was placed to cardiology plan is to continue with medical management at this point 7. Dysphagia secondary to patient muscular dystrophy status post PEG tube placement 7. Conduction system disorder status post pacemaker placement next 8. Hypertension-blood pressure controlled, home medications continued with dose adjustment as needed 9. DVT prophylaxis SC Lovenox Code Visit Inpatient E&M: 91836 [facility] Hosp L3
[2017-06-02] MEDS: Ipratropium/Albuterol Sulfate 3 ML AMPUL.NEB INHALATION ×2 (08:26→20:40)
--- NOTE | 2017-06-02 08:51 | CPS ---
Vent on standby at this time. Deflated cuff and placed on speaking valve.
[2017-06-02] MEDS: Aspirin 81 MG TAB.CHEW GT (08:57)
[2017-06-02] MEDS: Vital AF 1.2 Cal Liquid 1,000 ML 70 ML GT (09:00)
[2017-06-02] MEDS: Lisinopril 5 MG Tablet GT (10:55)
[2017-06-02] MEDS: Sertraline 50 MG Tablet GT (10:55)
[2017-06-02] MEDS: Glycopyrrolate 1 MG TABLET 1.5 MG GT ×2 (10:55→21:56)
[2017-06-02] MEDS: Montelukast 10 MG Tablet GT (10:55)
[2017-06-02] MEDS: Chlorhexidine 15 ML PO ×2 (10:56→22:13)
[2017-06-02] MEDS: Na Biphos/Potassium Phosphate PACKET 2 PACKET PO ×4 (10:56→22:08)
[2017-06-02] MEDS: Senna Tablet 1 TABLET GT ×2 (10:56→21:57)
[2017-06-02] MEDS: CHLORHEXIDINE GLUC 2% CLOTH 1 EACH TOWELETTE TOPICAL (10:56)
[2017-06-02] MEDS: Famotidine 20 MG Tablet GT ×2 (10:56→21:57)
[2017-06-02] MEDS: Mag Hydrox/Al Hydrox/Simeth 30 ML UDC GT (16:09)
[2017-06-02] MEDS: Atorvastatin Calcium 20 MG Tablet GT (21:57)
[2017-06-02] MEDS: Ketorolac 30 MG/ML Syringe IV (21:57)
[2017-06-02] MEDS: Zolpidem Tartrate 5 MG Tablet PO (22:05)
[2017-06-02] MEDS: 0.9% NaCl Peripheral Flush Adult/Peds IV (22:09)
[2017-06-03] VITALS (33 sets, daily range): BP systolic 94–162; BP diastolic 56–94; PULSE 69–107; RESP 10–40; TEMP 36.2–36.8; O2SAT 94–100
[2017-06-03] MEDS: Zolpidem Tartrate 5 MG Tablet PO ×2 (00:15→21:21)
[2017-06-03] MEDS: Vital AF 1.2 Cal Liquid 1,000 ML 70 ML GT ×2 (01:49→15:38)
[2017-06-03] MEDS: levoFLOXacin 750 MG Tablet GT (05:32)
[2017-06-03] MEDS: Clindamycin HCl 150 MG Capsule 450 MG GT ×3 (05:33→21:15)
[2017-06-03 06:17] LABS: Absolute Lymphocyte Count 2.43 X10^3/ul (0.83-4.51); Absolute Neutrophil Count 2.9 X10^3/uL (2.0-7.7); Basophil# 0.04 X10^3/uL; Basophil% 0.6 % (0-1); Eosinophil# 0.15 X10^3/uL; Eosinophils% 2.3 % (0-5); Hematocrit 36.6 % (40-54); Hemoglobin 11.3 g/dl (13.0-16.5); Lymphocyte # 2.43 X10^3/ul (4.0); Lymphocyte % 37.9 % (19-41); Mean Corp Hgb Conc 30.9 g/gl (32-36); Mean Corpuscular Hgb 24.6 pg (27.0-32.0); Mean Corpuscular Volume 79.7 fL (80-94); Mean Platelet Vol. 8.9 fl (6.2-12.0); Monocyte# 0.71 X10^3/uL; Monocyte% 11.1 % (0-10); Neutrophil # 2.94 X10^3/uL (2.7-7.7); Neutrophil % 45.8 % (47-70); Platelet Count 276 K/mm3 (150-450); RBC Distribution Width CV 17.3 % (11.6-14.6); RBC Distribution Width SD 48.3 fl (35.1-43.9); Red Blood Count 4.59 M/mm3 (4.6-6.2); White Blood Count 6.4 K/mm3 (4.4-11.0)
[2017-06-03 06:18] LABS: POSITIVE COUNT YES; POSITIVE DIFFERENTIAL NO; POSITIVE MORPHOLOGY YES
--- NOTE | 2017-06-03 06:47 | PCM.PN.INT ---
Subjective: The patient was seen and examined at the bedside this morning. Events from the last 24 hours have been reviewed. The patient is currently afebrile, hemodynamically stable and maintaining appropriate oxygen saturations on assist control with an FiO2 of 25%. The patient continues to only tolerate short periods of time off of full ventilatory support. The patient was able to be positioned into a chair yesterday with physical therapy. He was able to tolerate sitting in the chair for approximately 40 minutes before becoming fatigued. Objective: The patient's most recent lab work, culture data and imaging studies have all been personally reviewed. Sputum culture was positive for Pseudomonas, E. coli and MRSA. Chest CTA, dated May 27 revealed bilateral lower lobe airspace disease. Surface echocardiogram from 2014 revealed an LV ejection fraction of 55%. General: Alert, Cooperative, No apparent distress HEENT: Atraumatic, PERRLA, Normocephalic Oral: Moist Mucosa, No Gingival or Mucosal Lesions/ Ulcerations Neck: Supple, No Nodes, Trachea Midline, - - Tracheostomy site is C/D/I Lungs: No rhonchi, No wheeze, No rales, Diminished Cardiovascular: Regular rate, Regular Rhythm, Normal S1, Normal S2, No murmurs Abdomen: Bowel Sounds Present, Soft, Non Tender, - - PEG site is C/D/I Extremities: No clubbing, No cyanosis, Edema Skin: - - No significant change from previous. Musculoskeletal: No Tenderness to Palpation of Joints or Extremities Lymphatic: No Cervical, Supraclavicular, or Inguinal Adenopathy Neurological: - - No significant change from previous. Psych/Mental Status: Normal Affect, Appropriate Vital Signs Temp Pulse Resp BP Pulse Ox 97.9 F 82 11 L 103/77 99 06/03/17 06:00 06/03/17 06:00 06/03/17 06:00 06/03/17 06:00 06/03/17 06:00 Oxygen Delivery Method Mechanical Ventilator Weight: 202 lb 9.677 oz Body Mass Index (BMI) 29.1 Intake and Output for Last 24 Hours 06/01/17 06/02/17 06/03/17 23:59 23:59 23:59 Intake Total 5305 / 5305 3555 / 3555 470 / 470 Output Total 3165 / 3165 5050 / 5050 150 / 150 Balance 2140 / 2140 -1495 / -1495 320 / 320 Labs (Last 48 Hours) 06/02/17 06/03/17 06/03/17 05:45 05:30 05:30 WBC 6.4 RBC 4.59 L Hgb 11.3 L Hct 36.6 L MCV 79.7 L MCH 24.6 L MCHC 30.9 L RDW 17.3 H RDW Differential 48.3 H Plt Count 276 MPV 8.9 Immature Gran % (Auto) 2.300 H Neut % (Auto) 45.8 L Lymph % (Auto) 37.9 [place] % (Auto) 11.1 H Eos % (Auto) 2.3 Baso % (Auto) 0.6 Absolute Neuts (auto) 2.9 Absolute Lymphs (auto) 2.43 Total Counted Not Reportable Sodium 141 Pending Potassium 4.1 Pending Chloride 105 Pending Carbon Dioxide 29.0 Pending BUN 9 Pending Creatinine < 0.15 L Pending Estim Creat Clear Calc 532.04 Est GFR (MDRD) Af Amer 885 Pending Est GFR (MDRD) Non-Af 731 Pending BUN/Creatinine Ratio TNP Pending Glucose 136 H Pending Calcium 8.3 L Pending Phosphorus 2.9 Pending Magnesium Albumin 2.2 L Pending 06/03/17 05:30 WBC RBC Hgb Hct MCV MCH MCHC RDW RDW Differential Plt Count MPV Immature Gran % (Auto) Neut % (Auto) Lymph % (Auto) [place] % (Auto) Eos % (Auto) Baso % (Auto) Absolute Neuts (auto) Absolute Lymphs (auto) Total Counted Sodium Potassium Chloride Carbon Dioxide BUN Creatinine Estim Creat Clear Calc Est GFR (MDRD) Af Amer Est GFR (MDRD) Non-Af BUN/Creatinine Ratio Glucose Calcium Phosphorus Magnesium 2.0 Albumin Clinical Impression(s) from Imaging Studies Chest X-Ray 05/27/17 04:02 IMPRESSION: Stable low lung volume. Compression of basilar parenchyma appears increased when compared to previous examination, an inflammatory/infectious process such as pneumonia is not excluded. Electronically Signed: Jenna Paula MD at 4:41 EST , Service support , Chest CTA 05/27/17 05:43 IMPRESSION: Infiltration in both lower lobes. There is no evidence of pulmonary embolism. Electronically Signed: Mikey Angeles MD at 8:01 EST Tel [phone], Service support , Chest X-Ray 05/28/17 05:55 IMPRESSION: Patchy left basilar infiltrate and/or atelectasis with a small left pleural effusion. Mild increased markings at the right lung base. Electronically Signed: Mikey Angeles MD at 9:21 EST Tel [phone], Service support , Chest X-Ray 05/30/17 09:40 IMPRESSION: The tip of the right PICC line catheter is in the right atrium. It should be pulled back approximately 2 cm. Electronically Signed: Mikey Angeles MD at 10:08 EST Tel [phone], Service support , Chest X-Ray 05/31/17 05:10 IMPRESSION: No acute cardiopulmonary disease. Electronically Signed: Leo Villarreal MD at 6:07 EST , Service support , Assessment/Plan RECOMMENDATIONS: 1. Wean from assist control to trach collar as tolerated. 2. Continue aggressive bronchopulmonary hygiene. 3. Continue current antimicrobial regimen. 4. Continue tube feeds 5. Physical therapy to continue to work with patient today 6. LTACH disposition is pending IMPRESSIONS: 1. Acute on chronic respiratory failure secondary to progressive muscular dystrophy/pneumonia Patient with polymicrobial pneumonia that appears to be relatively sensitive. Antibiotics have been tailored and will be continued accordingly. The patient is severely deconditioned and is in need of aggressive physical therapy prior to consideration for his return to home. The patient continues to tolerate only small amounts of time off of the ventilator. We will continue to wean as tolerated. Aggressive bronchopulmonary hygiene will be continued. 2. Type II non-ST elevation [place] Patient has had a pac[place] [address] Sanchez. Troponins have down trended. Continue current medical management. 3. Depression/hypertension/chronic pain syndrome/debility Complicates care, management, recovery and prognosis. Likely okay to continue with baseline medications. Patient will be transitioned over to PEG medications. Patient is back on his BuSpar, which has helped with anxiety. Aggressive physical therapy is indicated. This note was generated with [employer] dictation software. It may contain incorrect words, spelling, and punctuation that were not noted in checking the note before signing. Code Visit Inpatient E&M: 52327 Subs Hosp L2
--- NOTE | 2017-06-03 06:50 | PN_ITS ---
Subjective: The patient was seen and examined at the bedside this morning. Events from the last 24 hours have been reviewed. The patient is currently afebrile, hemodynamically stable and maintaining appropriate oxygen saturations on assist control with an FiO2 of 25%. The patient continues to only tolerate short periods of time off of full ventilatory support. The patient was able to be positioned into a chair yesterday with physical therapy. He was able to tolerate sitting in the chair for approximately 40 minutes before becoming fatigued. Objective: The patient's most recent lab work, culture data and imaging studies have all been personally reviewed. Sputum culture was positive for Pseudomonas, E. coli and MRSA. Chest CTA, dated May 27 revealed bilateral lower lobe airspace disease. Surface echocardiogram from 2014 revealed an LV ejection fraction of 55%. General: Alert, Cooperative, No apparent distress HEENT: Atraumatic, PERRLA, Normocephalic Oral: Moist Mucosa, No Gingival or Mucosal Lesions/ Ulcerations Neck: Supple, No Nodes, Trachea Midline, - - Tracheostomy site is C/D/I Lungs: No rhonchi, No wheeze, No rales, Diminished Cardiovascular: Regular rate, Regular Rhythm, Normal S1, Normal S2, No murmurs Abdomen: Bowel Sounds Present, Soft, Non Tender, - - PEG site is C/D/I Extremities: No clubbing, No cyanosis, Edema Skin: - - No significant change from previous. Musculoskeletal: No Tenderness to Palpation of Joints or Extremities Lymphatic: No Cervical, Supraclavicular, or Inguinal Adenopathy Neurological: - - No significant change from previous. Psych/Mental Status: Normal Affect, Appropriate Vital Signs Temp Pulse Resp BP Pulse Ox 97.9 F 82 11 L 103/77 99 06/03/17 06:00 06/03/17 06:00 06/03/17 06:00 06/03/17 06:00 06/03/17 06:00 Oxygen Delivery Method Mechanical Ventilator Weight: 202 lb 9.677 oz Body Mass Index (BMI) 29.1 Intake and Output for Last 24 Hours 06/01/17 06/02/17 06/03/17 23:59 23:59 23:59 Intake Total 5305 / 5305 3555 / 3555 470 / 470 Output Total 3165 / 3165 5050 / 5050 150 / 150 Balance 2140 / 2140 -1495 / -1495 320 / 320 Labs (Last 48 Hours) 06/02/17 06/03/17 06/03/17 05:45 05:30 05:30 WBC 6.4 RBC 4.59 L Hgb 11.3 L Hct 36.6 L MCV 79.7 L MCH 24.6 L MCHC 30.9 L RDW 17.3 H RDW Differential 48.3 H Plt Count 276 MPV 8.9 Immature Gran % (Auto) 2.300 H Neut % (Auto) 45.8 L Lymph % (Auto) 37.9 [place] % (Auto) 11.1 H Eos % (Auto) 2.3 Baso % (Auto) 0.6 Absolute Neuts (auto) 2.9 Absolute Lymphs (auto) 2.43 Total Counted Not Reportable Sodium 141 Pending Potassium 4.1 Pending Chloride 105 Pending Carbon Dioxide 29.0 Pending BUN 9 Pending Creatinine < 0.15 L Pending Estim Creat Clear Calc 532.04 Est GFR (MDRD) Af Amer 885 Pending Est GFR (MDRD) Non-Af 731 Pending BUN/Creatinine Ratio TNP Pending Glucose 136 H Pending Calcium 8.3 L Pending Phosphorus 2.9 Pending Magnesium Albumin 2.2 L Pending 06/03/17 05:30 WBC RBC Hgb Hct MCV MCH MCHC RDW RDW Differential Plt Count MPV Immature Gran % (Auto) Neut % (Auto) Lymph % (Auto) [place] % (Auto) Eos % (Auto) Baso % (Auto) Absolute Neuts (auto) Absolute Lymphs (auto) Total Counted Sodium Potassium Chloride Carbon Dioxide BUN Creatinine Estim Creat Clear Calc Est GFR (MDRD) Af Amer Est GFR (MDRD) Non-Af BUN/Creatinine Ratio Glucose Calcium Phosphorus Magnesium 2.0 Albumin Clinical Impression(s) from Imaging Studies Chest X-Ray 05/27/17 04:02 IMPRESSION: Stable low lung volume. Compression of basilar parenchyma appears increased when compared to previous examination, an inflammatory/infectious process such as pneumonia is not excluded. Electronically Signed: Jenna Paula MD at 4:41 EST , Service support , Chest CTA 05/27/17 05:43 IMPRESSION: Infiltration in both lower lobes. There is no evidence of pulmonary embolism. Electronically Signed: Mikey Angeles MD at 8:01 EST Tel [phone], Service support , Chest X-Ray 05/28/17 05:55 IMPRESSION: Patchy left basilar infiltrate and/or atelectasis with a small left pleural effusion. Mild increased markings at the right lung base. Electronically Signed: Mikey Angeles MD at 9:21 EST Tel [phone], Service support , Chest X-Ray 05/30/17 09:40 IMPRESSION: The tip of the right PICC line catheter is in the right atrium. It should be pulled back approximately 2 cm. Electronically Signed: Mikey Angeles MD at 10:08 EST Tel [phone], Service support , Chest X-Ray 05/31/17 05:10 IMPRESSION: No acute cardiopulmonary disease. Electronically Signed: Leo Villarreal MD at 6:07 EST , Service support , Assessment/Plan RECOMMENDATIONS: 1. Wean from assist control to trach collar as tolerated. 2. Continue aggressive bronchopulmonary hygiene. 3. Continue current antimicrobial regimen. 4. Continue tube feeds 5. Physical therapy to continue to work with patient today 6. LTACH disposition is pending IMPRESSIONS: 1. Acute on chronic respiratory failure secondary to progressive muscular dystrophy/pneumonia Patient with polymicrobial pneumonia that appears to be relatively sensitive. Antibiotics have been tailored and will be continued accordingly. The patient is severely deconditioned and is in need of aggressive physical therapy prior to consideration for his return to home. The patient continues to tolerate only small amounts of time off of the ventilator. We will continue to wean as tolerated. Aggressive bronchopulmonary hygiene will be continued. 2. Type II non-ST elevation [place] Patient has had a pac[place] [address] Sanchez. Troponins have down trended. Continue current medical management. 3. Depression/hypertension/chronic pain syndrome/debility Complicates care, management, recovery and prognosis. Likely okay to continue with baseline medications. Patient will be transitioned over to PEG medications. Patient is back on his BuSpar, which has helped with anxiety. Aggressive physical therapy is indicated. This note was generated with [employer] dictation software. It may contain incorrect words, spelling, and punctuation that were not noted in checking the note before signing. Code Visit Inpatient E&M: 96031 Subs Hosp L2
[2017-06-03 07:06] LABS: Albumin, Serum 2.7 g/dL (3.2-5.0); BUN 16 mg/dL (7-18); Calcium,Total 8.8 mg/dL (8.5-10.1); Chloride 102 mmol/L (98-107); Creatinine, Serum < 0.15 mg/dL (0.70-1.30); EST Glomerular Filtration Rate 731 mL/min (>60); Est Glom Filt Rate - Afr Amer 884 mL/min (>60); Glucose 115 mg/dL (70-110); Phosphorus 5.2 mg/dL (2.5-4.9); Potassium 4.7 mmol/L (3.5-5.1); Sodium Level 140 mmol/L (136-145)
--- NOTE | 2017-06-03 07:54 | CPS ---
rochelle phan held this am, pt sleeping
--- NOTE | 2017-06-03 08:13 | PCM.PN.HOSP ---
Subjective: Patient seen apparently had a restful evening. Awaiting insurance precertification from case been prior to patient being transferred to long-term acute care. Denies any shortness of breath no nausea no vomiting no chest pain this a.m. Objective: GENERAL: Awake and in no apparent distress. HEENT: trach collar in place NECK; supple, normal thyroid, . CHEST: Diminished to auscultation bilaterally, HEART: Regular S1 S2, no audible murmurs ABDOMEN: soft, non-tender, normoactive bowel sounds, RECTAL: deferred EXTREMITIES: No clubbing, no cyanosis. IT APPLICATION ARCHITECT: Awake, oriented to place and person, SKIN: No rash Vitals/I&O's: Vital Signs Temp Pulse Resp BP Pulse Ox 97.9 F 76 11 L 103/77 99 06/03/17 06:00 06/03/17 06:30 06/03/17 06:30 06/03/17 06:00 06/03/17 06:30 Oxygen Delivery Method Mechanical Ventilator Weight: 91.9 kg Body Mass Index (BMI) 29.1 Intake and Output for Last 24 Hours 06/01/17 06/02/17 06/03/17 23:59 23:59 23:59 Intake Total 5305 / 5305 3555 / 3555 470 / 470 Output Total 3165 / 3165 5050 / 5050 150 / 150 Balance 2140 / 2140 -1495 / -1495 320 / 320 Microbiology Past 72 Hours 05/28/17 04:20 Sputum, Induced/[place] Gram Stain - Final 05/28/17 04:20 Sputum, Induced/[place] Respiratory Culture - Final Pseudomonas aeroginosa Escherichia coli Meth. resistant Staph. aureus Laboratory Results 06/03/17 05:30: Sodium 140, Potassium 4.7, Chloride 102, Carbon Dioxide 31.0, BUN 16, Creatinine < 0.15 L, Estim Creat Clear Calc 532.04, Est GFR (MDRD) Af Amer 884, Est GFR (MDRD) Non-Af 731, BUN/Creatinine Ratio TNP, Glucose 115 H, Calcium 8.8, Phosphorus 5.2 H, Albumin 2.7 L 06/03/17 05:30: WBC 6.4, RBC 4.59 L, Hgb 11.3 L, Hct 36.6 L, MCV 79.7 L, MCH 24.6 L, MCHC 30.9 L, RDW 17.3 H, RDW Differential 48.3 H, Plt Count 276, MPV 8.9, Immature Gran % (Auto) 2.300 H, Neut % (Auto) 45.8 L, Lymph % (Auto) 37.9, [place] % (Auto) 11.1 H, Eos % (Auto) 2.3, Baso % (Auto) 0.6, Absolute Neuts (auto) 2.9, Absolute Lymphs (auto) 2.43, Total Counted Not Reportable, Diff Path Review September foll 06/03/17 05:30: Magnesium 2.0 Current Medications Al Hydroxide/Mg Hydroxide (Mylanta Ii) 30 ml GT Q4H PRN PRN PRN Reason: DYSPEPSIA Last Admin: 06/02/17 16:09 Dose: 30 ml Albuterol/Ipratropium (Duoneb) 3 ml INHALATION Q4H.RT PRN PRN Reason: SOB &/OR WHEEZING Last Admin: 06/02/17 20:40 Dose: 3 ml Aspirin (Aspirin, Baby) 81 mg GT DAILY@0800 [facility] Last Admin: 06/02/17 08:57 Dose: 81 mg Atorvastatin Calcium (Lipitor) 20 mg GT QHS [facility] Last Admin: 06/02/17 21:57 Dose: 20 mg Bisacodyl (Dulcolax) 10 mg RECTAL DAILY PRN PRN PRN Reason: CONSTIPATION Last Admin: 05/30/17 14:17 Dose: 10 mg Buspirone HCl (Buspirone Hcl) 15 mg GT BID [facility] Last Admin: 06/02/17 21:57 Dose: 15 mg Chlorhexidine Gluconate () 15 ml PO BID [facility] Last Admin: 06/02/17 22:13 Dose: 15 ml Chlorhexidine Gluconate () 1 each TOPICAL DAILY [facility] Last Admin: 06/02/17 10:56 Dose: 1 each Cholecalciferol (Vitamin D) 2,000 unit GT DAILY [facility] Last Admin: 06/02/17 10:55 Dose: 2,000 unit Clindamycin HCl (Cleocin) 450 mg GT TID [facility] Last Admin: 06/03/17 05:33 Dose: 450 mg Cyclobenzaprine HCl (Flexeril) 10 mg GT TID PRN PRN PRN Reason: SPASMS Famotidine (Pepcid) 20 mg GT BID [facility] Last Admin: 06/02/17 21:57 Dose: 20 mg Glycopyrrolate (Robinul) 1.5 mg GT BID [facility] Last Admin: 06/02/17 21:56 Dose: 1.5 mg Heparin Sodium (Porcine) (Heparin Na) 5,000 unit SC Q8 [facility] Last Admin: 06/03/17 05:33 Dose: 5,000 u Enteral Nutritional Formula (Vital Af 1.2 Remy Liquid) 1,000 mls @ 70 mls/hr GT .[id number] [facility] Last Admin: 06/03/17 01:49 Dose: 70 mls/hr Levofloxacin (Levaquin) 750 mg GT DAILY@0600 [facility] Last Admin: 06/03/17 05:32 Dose: 750 mg Lisinopril (Zestril) 5 mg GT DAILY [facility] Last Admin: 06/02/17 10:55 Dose: 5 mg Magnesium Hydroxide (Milk Of Magnesia) 30 ml GT DAILY PRN PRN PRN Reason: Constipation Montelukast Sodium (Singulair) 10 mg GT DAILY [facility] Last Admin: 06/02/17 10:55 Dose: 10 mg Morphine Sulfate (Ms Contin) 30 mg PO BID [facility] Last Admin: 06/02/17 21:56 Dose: 30 mg Ondansetron HCl (Zofran) 4 mg IV Q8H PRN PRN PRN Reason: NAUSEA Last Admin: 05/28/17 10:41 Dose: 4 mg Oxycodone HCl (Oxyir) 10 mg PO Q4H PRN PRN PRN Reason: BREAKTHROUGH PAIN (>4/10) Last Admin: 06/02/17 20:13 Dose: 10 mg Potassium Phos/Sodium Phos (Neutra-Phos Packet) 2 packet PO 4X/DAY [facility] Stop: 06/03/17 22:01 Last Admin: 06/02/17 22:08 Dose: 2 packet Senna (Senokot) 1 tablet GT BID [facility] Last Admin: 06/02/17 21:57 Dose: 1 tablet Sertraline HCl (Zoloft) 50 mg GT DAILY [facility] Last Admin: 06/02/17 10:55 Dose: 50 mg Sodium Biphosphate/Sodium Phosphate (Fleet Enema) 1 bottle RECTAL DAILY PRN PRN Reason: Constipation Last Admin: 01/28/18 16:02 Dose: 1 bottle Sodium Chloride () 5 - 30 ml IV UD PRN PRN Reason: SALINE FLUSH Last Admin: 06/02/17 22:09 Dose: 20 ml Zolpidem Tartrate (Ambien (Generic)) 5 mg PO QHS PRN PRN PRN Reason: ANXIETY/INSOMNIA Last Admin: 06/02/17 22:05 Dose: 5 mg Assessment/Plan Patient is a 56-year-old gentleman with multiple comorbidities including progressive muscular dystrophy, s/p tracheostomy, admitted with acute respiratory distress. Imaging studies on admission demonstrated bilateral infiltrate sputum cultures positive for MRSA as well as Pseudomonas 1. Acute on chronic respiratory failure secondary to worsening progressive muscular dystrophy as well as healthcare acquired pneumonia. Patient has been managed on the vent with consultation placed to intensive care/pulmonary medicine 2. Healthcare acquired pneumonia secondary to MRSA as well as Pseudomonas patient has been managed with clindamycin as well as Levaquin 3. Progressive muscular dystrophy status post trach as well as PEG tube placement requested for PT OT as tolerated 4. Severe hypophosphatemia repleted per protocol 5. Hypokalemia corrected per protocol 6. Acute non-ST [place] type II secondary to demand ischemia as a result of patient underlying infection consult was placed to cardiology plan is to continue with medical management at this point 7. Dysphagia secondary to patient muscular dystrophy status post PEG tube placement 7. Conduction system disorder status post pacemaker placement next 8. Hypertension-blood pressure controlled, home medications continued with dose adjustment as needed 9. DVT prophylaxis [place] Lovenox Code Visit Inpatient E&M: 93087 Subs Hosp L2
--- NOTE | 2017-06-03 08:19 | PN_ITS ---
Subjective: Patient seen apparently had a restful evening. Awaiting insurance precertification from case been prior to patient being transferred to long-term acute care. Denies any shortness of breath no nausea no vomiting no chest pain this a.m. Objective: GENERAL: Awake and in no apparent distress. HEENT: trach collar in place NECK; supple, normal thyroid, . CHEST: Diminished to auscultation bilaterally, HEART: Regular S1 S2, no audible murmurs ABDOMEN: soft, non-tender, normoactive bowel sounds, RECTAL: deferred EXTREMITIES: No clubbing, no cyanosis. PERSONAL FITNESS MANAGER: Awake, oriented to place and person, SKIN: No rash Vitals/I&O's: Vital Signs Temp Pulse Resp BP Pulse Ox 97.9 F 76 11 L 103/77 99 06/03/17 06:00 06/03/17 06:30 06/03/17 06:30 06/03/17 06:00 06/03/17 06:30 Oxygen Delivery Method Mechanical Ventilator Weight: 91.9 kg Body Mass Index (BMI) 29.1 Intake and Output for Last 24 Hours 06/01/17 06/02/17 06/03/17 23:59 23:59 23:59 Intake Total 5305 / 5305 3555 / 3555 470 / 470 Output Total 3165 / 3165 5050 / 5050 150 / 150 Balance 2140 / 2140 -1495 / -1495 320 / 320 Microbiology Past 72 Hours 05/28/17 04:20 Sputum, Induced/[place] Gram Stain - Final 05/28/17 04:20 Sputum, Induced/[place] Respiratory Culture - Final Pseudomonas aeroginosa Escherichia coli Meth. resistant Staph. aureus Laboratory Results 06/03/17 05:30: Sodium 140, Potassium 4.7, Chloride 102, Carbon Dioxide 31.0, BUN 16, Creatinine < 0.15 L, Estim Creat Clear Calc 532.04, Est GFR (MDRD) Af Amer 884, Est GFR (MDRD) Non-Af 731, BUN/Creatinine Ratio TNP, Glucose 115 H, Calcium 8.8, Phosphorus 5.2 H, Albumin 2.7 L 06/03/17 05:30: WBC 6.4, RBC 4.59 L, Hgb 11.3 L, Hct 36.6 L, MCV 79.7 L, MCH 24.6 L, MCHC 30.9 L, RDW 17.3 H, RDW Differential 48.3 H, Plt Count 276, MPV 8.9 , Immature Gran % (Auto) 2.300 H, Neut % (Auto) 45.8 L, Lymph % (Auto) 37.9, [place] % (Auto) 11.1 H, Eos % (Auto) 2.3, Baso % (Auto) 0.6, Absolute Neuts (auto ) 2.9, Absolute Lymphs (auto) 2.43, Total Counted Not Reportable, Diff Path Review September foll 06/03/17 05:30: Magnesium 2.0 Current Medications Al Hydroxide/Mg Hydroxide (Mylanta Ii) 30 ml GT Q4H PRN PRN PRN Reason: DYSPEPSIA Last Admin: 06/02/17 16:09 Dose: 30 ml Albuterol/Ipratropium (Duoneb) 3 ml INHALATION Q4H.RT PRN PRN Reason: SOB &/OR WHEEZING Last Admin: 06/02/17 20:40 Dose: 3 ml Aspirin (Aspirin, Baby) 81 mg GT DAILY@0800 [facility] Last Admin: 06/02/17 08:57 Dose: 81 mg Atorvastatin Calcium (Lipitor) 20 mg GT QHS [facility] Last Admin: 06/02/17 21:57 Dose: 20 mg Bisacodyl (Dulcolax) 10 mg RECTAL DAILY PRN PRN PRN Reason: CONSTIPATION Last Admin: 05/30/17 14:17 Dose: 10 mg Buspirone HCl (Buspirone Hcl) 15 mg GT BID [facility] Last Admin: 06/02/17 21:57 Dose: 15 mg Chlorhexidine Gluconate () 15 ml PO BID [facility] Last Admin: 06/02/17 22:13 Dose: 15 ml Chlorhexidine Gluconate () 1 each TOPICAL DAILY [facility] Last Admin: 06/02/17 10:56 Dose: 1 each Cholecalciferol (Vitamin D) 2,000 unit GT DAILY [facility] Last Admin: 06/02/17 10:55 Dose: 2,000 unit Clindamycin HCl (Cleocin) 450 mg GT TID [facility] Last Admin: 06/03/17 05:33 Dose: 450 mg Cyclobenzaprine HCl (Flexeril) 10 mg GT TID PRN PRN PRN Reason: SPASMS Famotidine (Pepcid) 20 mg GT BID [facility] Last Admin: 06/02/17 21:57 Dose: 20 mg Glycopyrrolate (Robinul) 1.5 mg GT BID [facility] Last Admin: 06/02/17 21:56 Dose: 1.5 mg Heparin Sodium (Porcine) (Heparin Na) 5,000 unit SC Q8 [facility] Last Admin: 06/03/17 05:33 Dose: 5,000 u Enteral Nutritional Formula (Vital Af 1.2 Remy Liquid) 1,000 mls @ 70 mls/hr GT .[id number] [facility] Last Admin: 06/03/17 01:49 Dose: 70 mls/hr Levofloxacin (Levaquin) 750 mg GT DAILY@0600 [facility] Last Admin: 06/03/17 05:32 Dose: 750 mg Lisinopril (Zestril) 5 mg GT DAILY [facility] Last Admin: 06/02/17 10:55 Dose: 5 mg Magnesium Hydroxide (Milk Of Magnesia) 30 ml GT DAILY PRN PRN PRN Reason: Constipation Montelukast Sodium (Singulair) 10 mg GT DAILY [facility] Last Admin: 06/02/17 10:55 Dose: 10 mg Morphine Sulfate (Ms Contin) 30 mg PO BID [facility] Last Admin: 06/02/17 21:56 Dose: 30 mg Ondansetron HCl (Zofran) 4 mg IV Q8H PRN PRN PRN Reason: NAUSEA Last Admin: 05/28/17 10:41 Dose: 4 mg Oxycodone HCl (Oxyir) 10 mg PO Q4H PRN PRN PRN Reason: BREAKTHROUGH PAIN (>4/10) Last Admin: 06/02/17 20:13 Dose: 10 mg Potassium Phos/Sodium Phos (Neutra-Phos Packet) 2 packet PO 4X/DAY [facility] Stop: 06/03/17 22:01 Last Admin: 06/02/17 22:08 Dose: 2 packet Senna (Senokot) 1 tablet GT BID [facility] Last Admin: 06/02/17 21:57 Dose: 1 tablet Sertraline HCl (Zoloft) 50 mg GT DAILY [facility] Last Admin: 06/02/17 10:55 Dose: 50 mg Sodium Biphosphate/Sodium Phosphate (Fleet Enema) 1 bottle RECTAL DAILY PRN PRN Reason: Constipation Last Admin: 01/28/18 16:02 Dose: 1 bottle Sodium Chloride () 5 - 30 ml IV UD PRN PRN Reason: SALINE FLUSH Last Admin: 06/02/17 22:09 Dose: 20 ml Zolpidem Tartrate (Ambien (Generic)) 5 mg PO QHS PRN PRN PRN Reason: ANXIETY/INSOMNIA Last Admin: 06/02/17 22:05 Dose: 5 mg Assessment/Plan Patient is a 56-year-old gentleman with multiple comorbidities including progressive muscular dystrophy, s/p tracheostomy, admitted with acute respiratory distress. Imaging studies on admission demonstrated bilateral infiltrate sputum cultures positive for MRSA as well as Pseudomonas 1. Acute on chronic respiratory failure secondary to worsening progressive muscular dystrophy as well as healthcare acquired pneumonia. Patient has been managed on the vent with consultation placed to intensive care/pulmonary medicine 2. Healthcare acquired pneumonia secondary to MRSA as well as Pseudomonas patient has been managed with clindamycin as well as Levaquin 3. Progressive muscular dystrophy status post trach as well as PEG tube placement requested for PT OT as tolerated 4. Severe hypophosphatemia repleted per protocol 5. Hypokalemia corrected per protocol 6. Acute non-ST [place] type II secondary to demand ischemia as a result of patient underlying infection consult was placed to cardiology plan is to continue with medical management at this point 7. Dysphagia secondary to patient muscular dystrophy status post PEG tube placement 7. Conduction system disorder status post pacemaker placement next 8. Hypertension-blood pressure controlled, home medications continued with dose adjustment as needed 9. DVT prophylaxis SC Lovenox Code Visit Inpatient E&M: 98114 Subs Hosp L2
[2017-06-03] MEDS: Ipratropium/Albuterol Sulfate 3 ML AMPUL.NEB INHALATION ×2 (08:55→19:50)
--- NOTE | 2017-06-03 09:00 | CASEMGMT ---
[place] from [employer] here to collect updated information. Precert is pending will await Insurance determination. Janusz PAYNEN RN ACM
--- NOTE | 2017-06-03 09:43 | CPS ---
Vent on standby, cuff deflated and PM valve in place, pt off vent since 844. Vest tx given followed by aerosol tx.
[2017-06-03] MEDS: oxyCODONE 5 MG Tablet 10 MG PO ×3 (09:54→21:14)
[2017-06-03] MEDS: Glycopyrrolate 1 MG TABLET 1.5 MG GT ×2 (09:57→21:14)
[2017-06-03] MEDS: Sertraline 50 MG Tablet GT (09:57)
[2017-06-03] MEDS: Chlorhexidine 15 ML PO ×2 (09:58→21:15)
[2017-06-03] MEDS: Senna Tablet 1 TABLET GT ×2 (09:58→21:15)
[2017-06-03] MEDS: Aspirin 81 MG TAB.CHEW GT (09:58)
[2017-06-03] MEDS: Montelukast 10 MG Tablet GT (09:58)
[2017-06-03] MEDS: CHLORHEXIDINE GLUC 2% CLOTH 1 EACH TOWELETTE TOPICAL (09:59)
[2017-06-03] MEDS: Lisinopril 5 MG Tablet GT (09:59)
[2017-06-03] MEDS: Na Biphos/Potassium Phosphate PACKET 2 PACKET PO ×4 (09:59→21:14)
[2017-06-03] MEDS: Famotidine 20 MG Tablet GT ×2 (09:59→21:14)
[2017-06-03] MEDS: Acetaminophen 650 MG/20 ML UDC GT (12:48)
--- NOTE | 2017-06-03 15:20 | CPS ---
Pt has been on PM valve on Room Air with trach balloon deflated since 844 this morning, no resp distress noted, pt comfortable
--- NOTE | 2017-06-03 15:41 | CASEMGMT ---
LTAC denial has been received. Message left on Dr. Yan's phone w/details of denial. SHANNAN Faye notified also. Peer to Peer information has been requested, and can be set up for physician to appeal the denial. Janusz PAYNEN RN ACM
[2017-06-03 16:37] LABS: Pathologist Review Reviewed
[2017-06-03] MEDS: Atorvastatin Calcium 20 MG Tablet GT (21:20)
[2017-06-04] VITALS (35 sets, daily range): BP systolic 103–147; BP diastolic 68–95; PULSE 77–107; RESP 10–24; TEMP 36.6–36.7; O2SAT 95–99
[2017-06-04] MEDS: Zolpidem Tartrate 5 MG Tablet GT (00:46)
[2017-06-04 04:51] LABS: Absolute Neutrophil Count 4.1 X10^3/uL (2.0-7.7); Basophil# 0.03 X10^3/uL; Basophil% 0.4 % (0-1); Eosinophil# 0.15 X10^3/uL; Eosinophils% 1.9 % (0-5); Hemoglobin 12.2 g/dl (13.0-16.5); Mean Corp Hgb Conc 32.1 g/gl (32-36); Mean Corpuscular Hgb 25.5 pg (27.0-32.0); Mean Corpuscular Volume 79.5 fL (80-94); Mean Platelet Vol. 9.3 fl (6.2-12.0); Monocyte# 0.85 X10^3/uL; Monocyte% 10.7 % (0-10); Neutrophil % 51.5 % (47-70); Platelet Count 326 K/mm3 (150-450); RBC Distribution Width CV 17.9 % (11.6-14.6); RBC Distribution Width SD 48.7 fl (35.1-43.9); Red Blood Count 4.78 M/mm3 (4.6-6.2)
[2017-06-04 04:55] LABS: POSITIVE COUNT NO; POSITIVE DIFFERENTIAL NO; POSITIVE MORPHOLOGY NO
[2017-06-04 05:08] LABS: Anion Gap 7 (5-15); BUN 17 mg/dL (7-18); Calcium,Total 9.2 mg/dL (8.5-10.1); Chloride 98 mmol/L (98-107); Creatinine, Serum < 0.15 mg/dL (0.70-1.30); EST Glomerular Filtration Rate 731 mL/min (>60); Est Glom Filt Rate - Afr Amer 884 mL/min (>60); Glucose 114 mg/dL (70-110); Magnesium 2.2 mg/dL (1.6-2.6); Potassium 4.5 mmol/L (3.5-5.1); Sodium Level 137 mmol/L (136-145)
[2017-06-04] MEDS: Clindamycin HCl 150 MG Capsule 450 MG GT ×3 (06:37→21:22)
[2017-06-04] MEDS: levoFLOXacin 750 MG Tablet GT (06:37)
--- NOTE | 2017-06-04 06:52 | PN_ITS ---
Subjective: The patient was seen and examined at the bedside this morning. Events from the last 24 hours have been reviewed. The patient is currently afebrile, hemodynamically stable and maintaining appropriate oxygen saturations on an FiO2 of 25%. The patient's referral for LTACH disposition was denied. He has been tolerant of vest therapy. The patient was able to tolerate being off full ventilatory support for most of the day yesterday. He was then placed back on A/ C overnight. This morning, the patient is insistent that he be allowed to be discharged home with physical therapy. Objective: The patient's most recent lab work, culture data and imaging studies have all been personally reviewed. Sputum culture was positive for Pseudomonas, E. coli and MRSA. Chest CTA, dated May 27 revealed bilateral lower lobe airspace disease. Surface echocardiogram from 2014 revealed an LV ejection fraction of 55%. General: Alert, Cooperative, No apparent distress HEENT: Atraumatic, PERRLA, Normocephalic Oral: Moist Mucosa, No Gingival or Mucosal Lesions/ Ulcerations Neck: Supple, No Nodes, Trachea Midline, - - Tracheostomy site is C/D/I. [place] valve in place. Lungs: No rhonchi, No wheeze, No rales, Diminished Cardiovascular: Regular rate, Regular Rhythm, Normal S1, Normal S2, No murmurs Abdomen: Bowel Sounds Present, Soft, Non Tender, - - PEG site is C/D/I Extremities: No clubbing, No cyanosis, No edema Skin: - - No significant change from previous. Musculoskeletal: No Tenderness to Palpation of Joints or Extremities Lymphatic: No Cervical, Supraclavicular, or Inguinal Adenopathy Neurological: - - Baseline musculoskeletal weakness. Psych/Mental Status: Normal Affect, Appropriate Vital Signs Temp Pulse Resp BP Pulse Ox 98.1 F 87 11 L 103/83 H 99 06/04/17 04:00 06/04/17 05:21 06/04/17 05:21 06/04/17 05:00 06/04/17 05:21 Oxygen Delivery Method Mechanical Ventilator Weight: 204 lb 9.423 oz Body Mass Index (BMI) 29.1 Intake and Output for Last 24 Hours 06/02/17 06/03/17 06/04/17 23:59 23:59 23:59 Intake Total 3555 / 3555 2125 / 2125 1386 / 1386 Output Total 5050 / 5050 1650 / 1650 1200 / 1200 Balance -1495 / -1495 475 / 475 186 / 186 Labs (Last 48 Hours) 06/03/17 06/03/17 06/03/17 05:30 05:30 05:30 WBC 6.4 RBC 4.59 L Hgb 11.3 L Hct 36.6 L MCV 79.7 L MCH 24.6 L MCHC 30.9 L RDW 17.3 H RDW Differential 48.3 H Plt Count 276 MPV 8.9 Immature Gran % (Auto) 2.300 H Neut % (Auto) 45.8 L Lymph % (Auto) 37.9 [place] % (Auto) 11.1 H Eos % (Auto) 2.3 Baso % (Auto) 0.6 Absolute Neuts (auto) 2.9 Absolute Lymphs (auto) 2.43 Total Counted Not Reportable Diff Path Review Reviewed Sodium 140 Potassium 4.7 Chloride 102 Carbon Dioxide 31.0 Anion Gap BUN 16 Creatinine < 0.15 L Estim Creat Clear Calc 532.04 Est GFR (MDRD) Af Amer 884 Est GFR (MDRD) Non-Af 731 BUN/Creatinine Ratio TNP Glucose 115 H Calcium 8.8 Phosphorus 5.2 H Magnesium 2.0 Albumin 2.7 L 06/04/17 06/04/17 04:14 04:14 WBC 8.0 RBC 4.78 Hgb 12.2 L Hct 38.0 L MCV 79.5 L MCH 25.5 L MCHC 32.1 RDW 17.9 H RDW Differential 48.7 H Plt Count 326 MPV 9.3 Immature Gran % (Auto) 1.500 H Neut % (Auto) 51.5 Lymph % (Auto) 34.0 [place] % (Auto) 10.7 H Eos % (Auto) 1.9 Baso % (Auto) 0.4 Absolute Neuts (auto) 4.1 Absolute Lymphs (auto) 2.70 Total Counted Not Reportable Diff Path Review Sodium 137 Potassium 4.5 Chloride 98 Carbon Dioxide 32.0 Anion Gap 7 BUN 17 Creatinine < 0.15 L Estim Creat Clear Calc 532.04 Est GFR (MDRD) Af Amer 884 Est GFR (MDRD) Non-Af 731 BUN/Creatinine Ratio TNP Glucose 114 H Calcium 9.2 Phosphorus Magnesium 2.2 Albumin Clinical Impression(s) from Imaging Studies Chest X-Ray 05/27/17 04:02 IMPRESSION: Stable low lung volume. Compression of basilar parenchyma appears increased when compared to previous examination, an inflammatory/infectious process such as pneumonia is not excluded. Electronically Signed: Jenna Paula MD at 4:41 EST , Service support , Chest CTA 05/27/17 05:43 IMPRESSION: Infiltration in both lower lobes. There is no evidence of pulmonary embolism. Electronically Signed: Mikey Angeles MD at 8:01 EST Tel [phone], Service support , Chest X-Ray 05/28/17 05:55 IMPRESSION: Patchy left basilar infiltrate and/or atelectasis with a small left pleural effusion. Mild increased markings at the right lung base. Electronically Signed: Mikey Angeles MD at 9:21 EST Tel [phone], Service support , Chest X-Ray 05/30/17 09:40 IMPRESSION: The tip of the right PICC line catheter is in the right atrium. It should be pulled back approximately 2 cm. Electronically Signed: Mikey Angeles MD at 10:08 EST Tel [phone], Service support , Chest X-Ray 05/31/17 05:10 IMPRESSION: No acute cardiopulmonary disease. Electronically Signed: Leo Villarreal MD at 6:07 EST , Service support , Assessment/Plan RECOMMENDATIONS: 1. Continue the patient on room air trach collar as tolerated. Ventilatory support can be utilized as needed. 2. Physical therapy reevaluation this morning. 3. Continue aggressive bronchopulmonary hygiene. 4. Continue current antimicrobial regimen. 5. Continue tube feeds 6. Modified barium swallow planned for today per speech therapy recommendations. IMPRESSIONS: 1. Acute on chronic respiratory failure secondary to progressive muscular dystrophy/pneumonia Patient with polymicrobial pneumonia that appears to be relatively sensitive. Antibiotics have been tailored and will be continued accordingly. The patient was able to be maintained off of ventilatory support yesterday for the entire day. He is currently doing well this morning on room air. Will ask physical therapy to reevaluate the patient earlier this morning. It is highly likely that he may be able to be discharged home with physical therapy. Anticipate that this could likely occur tomorrow morning, as services will need to be coordinated. Aggressive bronchopulmonary hygiene will be continued. 2. Type II non-ST elevation [place] Patient has had a pac[place] [address] Sanchez. Troponins have down trended. Continue current medical management. 3. Depression/hypertension/chronic pain syndrome/debility Complicates care, management, recovery and prognosis. Likely okay to continue with baseline medications. Continue to work with physical therapy. Speech therapy is planning for modified barium swallow today. This note was generated with [employer] dictation software. It may contain incorrect words, spelling, and punctuation that were not noted in checking the note before signing. Code Visit Inpatient E&M: 16285 Subs Hosp L2
[2017-06-04] MEDS: Ipratropium/Albuterol Sulfate 3 ML AMPUL.NEB INHALATION ×2 (07:22→11:41)
[2017-06-04 07:44] LABS: Albumin, Serum 3.1 g/dL (3.2-5.0)
--- NOTE | 2017-06-04 08:07 | CASEMGMT ---
Call to request Peer to Peer for this made. Message left including call back for Dr. Yan and RN CM. Janusz PAYNEN RN ACM
--- NOTE | 2017-06-04 08:08 | PCM.PN.HOSP ---
Subjective: Seen per nursing staff had a relatively uneventful night currently on room air plan is for patient to be discharged to [facility] facility however he did express a desire to be discharged home instead Objective: GENERAL: Awake and in no apparent distress. HEENT: trach collar in place NECK; supple, normal thyroid, . CHEST: Diminished to auscultation bilaterally, HEART: Regular S1 S2, no audible murmurs ABDOMEN: soft, non-tender, normoactive bowel sounds, RECTAL: deferred EXTREMITIES: No clubbing, no cyanosis. FOLLOW UP CLERK: Awake, oriented to place and person, SKIN: No rash Vitals/I&O's: Vital Signs Temp Pulse Resp BP Pulse Ox 98.1 F 105 H 11 L 135/70 H 99 06/04/17 04:00 06/04/17 07:00 06/04/17 06:00 06/04/17 06:00 06/04/17 06:00 Oxygen Delivery Method Mechanical Ventilator Weight: 92.8 kg Body Mass Index (BMI) 29.1 Intake and Output for Last 24 Hours 06/02/17 06/03/17 06/04/17 23:59 23:59 23:59 Intake Total 3555 / 3555 2125 / 2125 1456 / 1456 Output Total 5050 / 5050 1650 / 1650 1200 / 1200 Balance -1495 / -1495 475 / 475 256 / 256 Laboratory Results 06/03/17 05:30: Diff Path Review Reviewed 06/04/17 04:14: Albumin 3.1 L 06/04/17 04:14: WBC 8.0, RBC 4.78, Hgb 12.2 L, Hct 38.0 L, MCV 79.5 L, MCH 25.5 L, MCHC 32.1, RDW 17.9 H, RDW Differential 48.7 H, Plt Count 326, MPV 9.3, Immature Gran % (Auto) 1.500 H, Neut % (Auto) 51.5, Lymph % (Auto) 34.0, [place] % (Auto) 10.7 H, Eos % (Auto) 1.9, Baso % (Auto) 0.4, Absolute Neuts (auto) 4.1, Absolute Lymphs (auto) 2.70, Total Counted Not Reportable 06/04/17 04:14: Sodium 137, Potassium 4.5, Chloride 98, Carbon Dioxide 32.0, Anion Gap 7, BUN 17, Creatinine < 0.15 L, Estim Creat Clear Calc 532.04, Est GFR (MDRD) Af Amer 884, Est GFR (MDRD) Non-Af 731, BUN/Creatinine Ratio TNP, Glucose 114 H, Calcium 9.2, Magnesium 2.2 Current Medications Acetaminophen (Tylenol Liquid) 650 mg GT Q4H PRN PRN PRN Reason: Pain, Fever > 101 Last Admin: 06/03/17 12:48 Dose: 650 mg Al Hydroxide/Mg Hydroxide (Mylanta Ii) 30 ml GT Q4H PRN PRN PRN Reason: DYSPEPSIA Last Admin: 06/02/17 16:09 Dose: 30 ml Albuterol/Ipratropium (Duoneb) 3 ml INHALATION Q4H.RT PRN PRN Reason: SOB &/OR WHEEZING Last Admin: 06/04/17 07:22 Dose: 3 ml Aspirin (Aspirin, Baby) 81 mg GT DAILY@0800 [facility] Last Admin: 06/03/17 09:58 Dose: 81 mg Atorvastatin Calcium (Lipitor) 20 mg GT QHS [facility] Last Admin: 06/03/17 21:20 Dose: 20 mg Bisacodyl (Dulcolax) 10 mg RECTAL DAILY PRN PRN PRN Reason: CONSTIPATION Last Admin: 05/30/17 14:17 Dose: 10 mg Buspirone HCl (Buspirone Hcl) 15 mg GT BID [facility] Last Admin: 06/03/17 21:15 Dose: 15 mg Chlorhexidine Gluconate () 15 ml PO BID [facility] Last Admin: 06/03/17 21:15 Dose: 15 ml Chlorhexidine Gluconate () 1 each TOPICAL DAILY [facility] Last Admin: 06/03/17 09:59 Dose: 1 each Cholecalciferol (Vitamin D) 2,000 unit GT DAILY [facility] Last Admin: 06/03/17 09:59 Dose: 2,000 unit Clindamycin HCl (Cleocin) 450 mg GT TID [facility] Last Admin: 06/04/17 06:37 Dose: 450 mg Cyclobenzaprine HCl (Flexeril) 10 mg GT TID PRN PRN PRN Reason: SPASMS Famotidine (Pepcid) 20 mg GT BID [facility] Last Admin: 06/03/17 21:14 Dose: 20 mg Glycopyrrolate (Robinul) 1.5 mg GT BID [facility] Last Admin: 06/03/17 21:14 Dose: 1.5 mg Heparin Sodium (Porcine) (Heparin Na) 5,000 unit SC Q8 [facility] Last Admin: 06/04/17 06:37 Dose: 5,000 u Enteral Nutritional Formula (Vital Af 1.2 Remy Liquid) 1,000 mls @ 70 mls/hr GT .[id number] [facility] Last Admin: 06/03/17 15:38 Dose: 70 mls/hr Levofloxacin (Levaquin) 750 mg GT DAILY@0600 [facility] Last Admin: 06/04/17 06:37 Dose: 750 mg Lisinopril (Zestril) 5 mg GT DAILY [facility] Last Admin: 06/03/17 09:59 Dose: 5 mg Magnesium Hydroxide (Milk Of Magnesia) 30 ml GT DAILY PRN PRN PRN Reason: Constipation Montelukast Sodium (Singulair) 10 mg GT DAILY [facility] Last Admin: 06/03/17 09:58 Dose: 10 mg Morphine Sulfate (Ms Contin) 30 mg PO BID [facility] Last Admin: 06/03/17 22:14 Dose: 30 mg Ondansetron HCl (Zofran) 4 mg IV Q8H PRN PRN PRN Reason: NAUSEA Last Admin: 05/28/17 10:41 Dose: 4 mg Oxycodone HCl (Oxyir) 10 mg PO Q4H PRN PRN PRN Reason: BREAKTHROUGH PAIN (>4/10) Last Admin: 06/03/17 21:14 Dose: 10 mg Senna (Senokot) 1 tablet GT BID [facility] Last Admin: 06/03/17 21:15 Dose: 1 tablet Sertraline HCl (Zoloft) 50 mg GT DAILY [facility] Last Admin: 06/03/17 09:57 Dose: 50 mg Sodium Biphosphate/Sodium Phosphate (Fleet Enema) 1 bottle RECTAL DAILY PRN PRN Reason: Constipation Last Admin: 06/01/17 16:02 Dose: 1 bottle Sodium Chloride () 5 - 30 ml IV UD PRN PRN Reason: SALINE FLUSH Last Admin: 06/02/17 22:09 Dose: 20 ml Zolpidem Tartrate (Ambien (Generic)) 5 mg PO QHS PRN PRN PRN Reason: ANXIETY/INSOMNIA Last Admin: 06/03/17 21:21 Dose: 5 mg Assessment/Plan Patient is a 56-year-old gentleman with multiple comorbidities including progressive muscular dystrophy, s/p tracheostomy, admitted with acute respiratory distress. Imaging studies on admission demonstrated bilateral infiltrate sputum cultures positive for MRSA as well as Pseudomonas 1. Acute on chronic respiratory failure secondary to worsening progressive muscular dystrophy as well as healthcare acquired pneumonia. Patient has been managed on the vent with consultation placed to intensive care/pulmonary medicine 2. Healthcare acquired pneumonia secondary to MRSA as well as Pseudomonas patient has been managed with clindamycin as well as Levaquin 3. Progressive muscular dystrophy status post trach as well as PEG tube placement requested for PT OT as tolerated 4. Severe hypophosphatemia repleted per protocol 5. Hypokalemia corrected per protocol 6. Acute non-ST [place] type II secondary to demand ischemia as a result of patient underlying infection consult was placed to cardiology plan is to continue with medical management at this point 7. Dysphagia secondary to patient muscular dystrophy status post PEG tube placement 7. Conduction system disorder status post pacemaker placement next 8. Hypertension-blood pressure controlled, home medications continued with dose adjustment as needed 9. DVT prophylaxis SC Lovenox 10. Physical deconditioning PT OT as tolerated, consult also placed to [employer] social worker to assist with discharge planning Code Visit Inpatient E&M: 95830 Subs Hosp L2
--- NOTE | 2017-06-04 08:15 | PN_ITS ---
Subjective: Seen per nursing staff had a relatively uneventful night currently on room air plan is for patient to be discharged to long term facility however he did express a desire to be discharged home instead Objective: GENERAL: Awake and in no apparent distress. HEENT: trach collar in place NECK; supple, normal thyroid, . CHEST: Diminished to auscultation bilaterally, HEART: Regular S1 S2, no audible murmurs ABDOMEN: soft, non-tender, normoactive bowel sounds, RECTAL: deferred EXTREMITIES: No clubbing, no cyanosis. STEREOTYPER: Awake, oriented to place and person, SKIN: No rash Vitals/I&O's: Vital Signs Temp Pulse Resp BP Pulse Ox 98.1 F 105 H 11 L 135/70 H 99 06/04/17 04:00 06/04/17 07:00 06/04/17 06:00 06/04/17 06:00 06/04/17 06:00 Oxygen Delivery Method Mechanical Ventilator Weight: 92.8 kg Body Mass Index (BMI) 29.1 Intake and Output for Last 24 Hours 06/02/17 06/03/17 06/04/17 23:59 23:59 23:59 Intake Total 3555 / 3555 2125 / 2125 1456 / 1456 Output Total 5050 / 5050 1650 / 1650 1200 / 1200 Balance -1495 / -1495 475 / 475 256 / 256 Laboratory Results 06/03/17 05:30: Diff Path Review Reviewed 06/04/17 04:14: Albumin 3.1 L 06/04/17 04:14: WBC 8.0, RBC 4.78, Hgb 12.2 L, Hct 38.0 L, MCV 79.5 L, MCH 25.5 L, MCHC 32.1, RDW 17.9 H, RDW Differential 48.7 H, Plt Count 326, MPV 9.3, Immature Gran % (Auto) 1.500 H, Neut % (Auto) 51.5, Lymph % (Auto) 34.0, [place] % (Auto) 10.7 H, Eos % (Auto) 1.9, Baso % (Auto) 0.4, Absolute Neuts (auto) 4.1, Absolute Lymphs (auto) 2.70, Total Counted Not Reportable 06/04/17 04:14: Sodium 137, Potassium 4.5, Chloride 98, Carbon Dioxide 32.0, Anion Gap 7, BUN 17, Creatinine < 0.15 L, Estim Creat Clear Calc 532.04, Est GFR (MDRD) Af Amer 884, Est GFR (MDRD) Non-Af 731, BUN/Creatinine Ratio TNP, Glucose 114 H, Calcium 9.2, Magnesium 2.2 Current Medications Acetaminophen (Tylenol Liquid) 650 mg GT Q4H PRN PRN PRN Reason: Pain, Fever > 101 Last Admin: 06/03/17 12:48 Dose: 650 mg Al Hydroxide/Mg Hydroxide (Mylanta Ii) 30 ml GT Q4H PRN PRN PRN Reason: DYSPEPSIA Last Admin: 06/02/17 16:09 Dose: 30 ml Albuterol/Ipratropium (Duoneb) 3 ml INHALATION Q4H.RT PRN PRN Reason: SOB &/OR WHEEZING Last Admin: 06/04/17 07:22 Dose: 3 ml Aspirin (Aspirin, Baby) 81 mg GT DAILY@0800 [facility] Last Admin: 06/03/17 09:58 Dose: 81 mg Atorvastatin Calcium (Lipitor) 20 mg GT QHS [facility] Last Admin: 06/03/17 21:20 Dose: 20 mg Bisacodyl (Dulcolax) 10 mg RECTAL DAILY PRN PRN PRN Reason: CONSTIPATION Last Admin: 05/30/17 14:17 Dose: 10 mg Buspirone HCl (Buspirone Hcl) 15 mg GT BID [facility] Last Admin: 06/03/17 21:15 Dose: 15 mg Chlorhexidine Gluconate () 15 ml PO BID [facility] Last Admin: 06/03/17 21:15 Dose: 15 ml Chlorhexidine Gluconate () 1 each TOPICAL DAILY [facility] Last Admin: 06/03/17 09:59 Dose: 1 each Cholecalciferol (Vitamin D) 2,000 unit GT DAILY [facility] Last Admin: 06/03/17 09:59 Dose: 2,000 unit Clindamycin HCl (Cleocin) 450 mg GT TID [facility] Last Admin: 06/04/17 06:37 Dose: 450 mg Cyclobenzaprine HCl (Flexeril) 10 mg GT TID PRN PRN PRN Reason: SPASMS Famotidine (Pepcid) 20 mg GT BID [facility] Last Admin: 06/03/17 21:14 Dose: 20 mg Glycopyrrolate (Robinul) 1.5 mg GT BID [facility] Last Admin: 06/03/17 21:14 Dose: 1.5 mg Heparin Sodium (Porcine) (Heparin Na) 5,000 unit SC Q8 [facility] Last Admin: 06/04/17 06:37 Dose: 5,000 u Enteral Nutritional Formula (Vital Af 1.2 Remy Liquid) 1,000 mls @ 70 mls/hr GT .[id number] [facility] Last Admin: 06/03/17 15:38 Dose: 70 mls/hr Levofloxacin (Levaquin) 750 mg GT DAILY@0600 [facility] Last Admin: 06/04/17 06:37 Dose: 750 mg Lisinopril (Zestril) 5 mg GT DAILY [facility] Last Admin: 06/03/17 09:59 Dose: 5 mg Magnesium Hydroxide (Milk Of Magnesia) 30 ml GT DAILY PRN PRN PRN Reason: Constipation Montelukast Sodium (Singulair) 10 mg GT DAILY [facility] Last Admin: 06/03/17 09:58 Dose: 10 mg Morphine Sulfate (Ms Contin) 30 mg PO BID [facility] Last Admin: 06/03/17 22:14 Dose: 30 mg Ondansetron HCl (Zofran) 4 mg IV Q8H PRN PRN PRN Reason: NAUSEA Last Admin: 05/28/17 10:41 Dose: 4 mg Oxycodone HCl (Oxyir) 10 mg PO Q4H PRN PRN PRN Reason: BREAKTHROUGH PAIN (>4/10) Last Admin: 06/03/17 21:14 Dose: 10 mg Senna (Senokot) 1 tablet GT BID [facility] Last Admin: 06/03/17 21:15 Dose: 1 tablet Sertraline HCl (Zoloft) 50 mg GT DAILY [facility] Last Admin: 06/03/17 09:57 Dose: 50 mg Sodium Biphosphate/Sodium Phosphate (Fleet Enema) 1 bottle RECTAL DAILY PRN PRN Reason: Constipation Last Admin: 06/01/17 16:02 Dose: 1 bottle Sodium Chloride () 5 - 30 ml IV UD PRN PRN Reason: SALINE FLUSH Last Admin: 06/02/17 22:09 Dose: 20 ml Zolpidem Tartrate (Ambien (Generic)) 5 mg PO QHS PRN PRN PRN Reason: ANXIETY/INSOMNIA Last Admin: 06/03/17 21:21 Dose: 5 mg Assessment/Plan Patient is a 56-year-old gentleman with multiple comorbidities including progressive muscular dystrophy, s/p tracheostomy, admitted with acute respiratory distress. Imaging studies on admission demonstrated bilateral infiltrate sputum cultures positive for MRSA as well as Pseudomonas 1. Acute on chronic respiratory failure secondary to worsening progressive muscular dystrophy as well as healthcare acquired pneumonia. Patient has been managed on the vent with consultation placed to intensive care/pulmonary medicine 2. Healthcare acquired pneumonia secondary to MRSA as well as Pseudomonas patient has been managed with clindamycin as well as Levaquin 3. Progressive muscular dystrophy status post trach as well as PEG tube placement requested for PT OT as tolerated 4. Severe hypophosphatemia repleted per protocol 5. Hypokalemia corrected per protocol 6. Acute non-ST ND type II secondary to demand ischemia as a result of patient underlying infection consult was placed to cardiology plan is to continue with medical management at this point 7. Dysphagia secondary to patient muscular dystrophy status post PEG tube placement 7. Conduction system disorder status post pacemaker placement next 8. Hypertension-blood pressure controlled, home medications continued with dose adjustment as needed 9. DVT prophylaxis SC Lovenox 10. Physical deconditioning PT OT as tolerated, consult also placed to school social worker to assist with discharge planning Code Visit Inpatient E&M: 65623 Subs Hosp L2
[2017-06-04] MEDS: Aspirin 81 MG TAB.CHEW GT (08:31)
[2017-06-04] MEDS: oxyCODONE 5 MG Tablet 10 MG PO ×2 (08:32→14:52)
--- NOTE | 2017-06-04 10:51 | CASEMGMT ---
Per Dr. Yan, pt has remained off ventilator yesterday from 8:45 am to 11 pm. Tolerating [place] Valve today, able to verbally communicate. and pt are requesting to return home. Per physical therapist, pt is able to maintain sitting position much improved from yesterday. They are requesting Physical therapy on dc. -Call to [facility]-current with patient. They are able to staff nurse for dc tomorrow. [facility] contracts with physcial therapy, however they do not come to this area. RN CM called to [facility], they cannot staff PT when pt has another skilled agency. School Secretary @ [facility] will investigate options for physical therapy, otherwise this will not be an option at home. Pt did state his nurse assists with therapy exercises @ home now. -Call to re: [employer] for Tube feeding and supplies. Options given for [facility] agencies, agreeable w/[facility]. Call to Molly @ [facility] (FAX [phone]). Will have Dr. Webber complete script after nutrition recommendations;Swallow evaluation scheduled for 2 pm today. Dietary will give TF recommendations. Janusz BELLA RN ACM
[2017-06-04] MEDS: Lisinopril 5 MG Tablet GT (10:56)
[2017-06-04] MEDS: Senna Tablet 1 TABLET GT ×2 (10:56→21:23)
[2017-06-04] MEDS: Sertraline 50 MG Tablet GT (10:56)
[2017-06-04] MEDS: Montelukast 10 MG Tablet GT (10:56)
[2017-06-04] MEDS: Famotidine 20 MG Tablet GT ×2 (10:56→21:22)
[2017-06-04] MEDS: Chlorhexidine 15 ML PO ×2 (10:57→21:23)
[2017-06-04] MEDS: Glycopyrrolate 1 MG TABLET 1.5 MG GT ×2 (10:57→21:22)
[2017-06-04] MEDS: Vital AF 1.2 Cal Liquid 1,000 ML 70 ML GT (11:00)
--- NOTE | 2017-06-04 11:27 | NS ---
Addendum entered by Leonie Varela 06/04/17 14:31: If Vital AF 1.2 not available to pt, equivalent formula would be Peptamen AF @70cc/hour w/ 125cc H2O flush every 4 hours to provide 2016 calories/ 127 g protein/ 2107cc free fluid/day. Original Note: Rec Vital AF 1.2 at goal rate of 70cc/hour w/ 125cc H2O flush every 4 hours to provide 2016 calories/ 126 g protein/ 2112cc free fluid/day. This tube feeding meets 100% of pt's estimated daily protein and calorie needs. Would rec continuing Vital AF 1.2 formula upon discharge as pt has increased nutrient needs r/t history of muscular dystrophy and tracheostomy requiring ventilatory support as evidenced by reported decreased functional status and limited swallowing ability resulting in very limited oral intake. Since start of Vital AF 1.2 pt has maintained an appropriate wt and tolerated formula w/o GI disturbances. If pt to resume an oral diet, I would recommend pt follow-up w/ a Registered Dietitian to make adjustments to tube feeding regimen. Anticipate pt will require long-term nutritional supplementation (orally, enterally or in combination) in order to meet increased nutrient needs.
--- NOTE | 2017-06-04 16:56 | CASEMGMT ---
Per commutator presser, pt can go home on Vital AF 1.2 OR Peptamen AF @ 70 ml/hr. [facility] tube feed, pump and supplies. [facility] and this will need insurance authorization as well as shipping to home. It is not available in store. Call to [facility], they also would need to order and it is not available in their store. Call to [facility] Retail pharmacist- this is an inpt product and cannot be bought through Retail pharmacy. As pt is not eating orally, commutator presser recommendation is that he be on continuous tube feeds which will require his stay in the hospital until this is arranged. -Spoke with with Denae @ [facility], informing of expediency as pt would like to return home. She will let Molly @ [facility]) know we would like to pisano process and deliver. Will wait to speak with Molly from [facility] tomorrow prior to talking with pt/ to establish more accurate time frame. -[facility] is able to resume care on discharge. Pt has [employer] 64 hours/week while works. Will need notified tomorrow if pt is not discharged. Will need to fax resume home health order and dc instructions on discharge. [facility] -Plan is for ambulance on dc and to notify [facility] as soon as dc date/time is known to arrange for nurse to be @ home. -RN NOLAN called to notify of above, message left. Nurse Phong also updated. Janusz PAYNEN RN ACM
[2017-06-04] MEDS: Zolpidem Tartrate 5 MG Tablet PO (21:15)
[2017-06-04] MEDS: Atorvastatin Calcium 20 MG Tablet GT (21:22)
[2017-06-05] VITALS (16 sets, daily range): BP systolic 105–152; BP diastolic 65–94; PULSE 78–95; RESP 10–21; TEMP 36.3–36.6; O2SAT 95–100
[2017-06-05] MEDS: Vital AF 1.2 Cal Liquid 1,000 ML 70 ML GT ×2 (05:50→10:16)
[2017-06-05] MEDS: Clindamycin HCl 150 MG Capsule 450 MG GT (05:50)
[2017-06-05] MEDS: levoFLOXacin 750 MG Tablet GT (05:50)
[2017-06-05] MEDS: oxyCODONE 5 MG Tablet 10 MG PO (06:10)
[2017-06-05] MEDS: Ipratropium/Albuterol Sulfate 3 ML AMPUL.NEB INHALATION (06:52)
--- NOTE | 2017-06-05 07:01 | PCM.PN.INT ---
Subjective: The patient was seen and examined at the bedside this morning. Events from the last 24 hours have been reviewed. The patient is currently afebrile, hemodynamically stable and maintaining appropriate oxygen saturations on an FiO2 of 25%. Although the patient was initially scheduled for an MBS yesterday, the patient opted not to participate, noting that it was not necessary. No issues were identified overnight. The patient did work with physical therapy yesterday and they are recommending outpatient PT. Objective: The patient's most recent lab work, culture data and imaging studies have all been personally reviewed. Sputum culture was positive for Pseudomonas, E. coli and MRSA. Chest CTA, dated May 27 revealed bilateral lower lobe airspace disease. Surface echocardiogram from 2014 revealed an LV ejection fraction of 55%. General: Alert, Cooperative, No apparent distress HEENT: Atraumatic, PERRLA, Normocephalic Oral: Moist Mucosa, No Gingival or Mucosal Lesions/ Ulcerations Neck: Supple, No Nodes, Trachea Midline, - - Tracheostomy site is C/D/I. Lungs: No rhonchi, No wheeze, No rales, Diminished Cardiovascular: Regular rate, Regular Rhythm, Normal S1, Normal S2, No murmurs Abdomen: Bowel Sounds Present, Soft, Non Tender, - - PEG site is C/D/I Extremities: No clubbing, No cyanosis, No edema Skin: - - No significant change from previous. Musculoskeletal: No Tenderness to Palpation of Joints or Extremities Lymphatic: No Cervical, Supraclavicular, or Inguinal Adenopathy Neurological: Neuro grossly intact, - - Baseline musculoskeletal weakness. Psych/Mental Status: Normal Affect, Appropriate Vital Signs Temp Pulse Resp BP Pulse Ox 97.6 F L 79 11 L 119/74 100 06/05/17 06:34 06/05/17 06:34 06/05/17 06:34 06/05/17 06:34 06/05/17 06:34 Oxygen Delivery Method Mechanical Ventilator Weight: 196 lb 6.91 oz Body Mass Index (BMI) 29.1 Intake and Output for Last 24 Hours 06/03/17 06/04/17 06/05/17 23:59 23:59 23:59 Intake Total 2125 / 2125 3057 / 3057 590 / 590 Output Total 1650 / 1650 3400 / 3400 1100 / 1100 Balance 475 / 475 -343 / -343 -510 / -510 Labs (Last 48 Hours) 06/03/17 06/03/17 06/04/17 05:30 05:30 04:14 WBC RBC Hgb Hct MCV MCH MCHC RDW RDW Differential Plt Count MPV Immature Gran % (Auto) Neut % (Auto) Lymph % (Auto) [place] % (Auto) Eos % (Auto) Baso % (Auto) Absolute Neuts (auto) Absolute Lymphs (auto) Total Counted Diff Path Review Reviewed Sodium 140 Potassium 4.7 Chloride 102 Carbon Dioxide 31.0 Anion Gap BUN 16 Creatinine < 0.15 L Estim Creat Clear Calc 532.04 Est GFR (MDRD) Af Amer 884 Est GFR (MDRD) Non-Af 731 BUN/Creatinine Ratio TNP Glucose 115 H Calcium 8.8 Phosphorus 5.2 H Magnesium Albumin 2.7 L 3.1 L 06/04/17 06/04/17 04:14 04:14 WBC 8.0 RBC 4.78 Hgb 12.2 L Hct 38.0 L MCV 79.5 L MCH 25.5 L MCHC 32.1 RDW 17.9 H RDW Differential 48.7 H Plt Count 326 MPV 9.3 Immature Gran % (Auto) 1.500 H Neut % (Auto) 51.5 Lymph % (Auto) 34.0 [place] % (Auto) 10.7 H Eos % (Auto) 1.9 Baso % (Auto) 0.4 Absolute Neuts (auto) 4.1 Absolute Lymphs (auto) 2.70 Total Counted Not Reportable Diff Path Review Sodium 137 Potassium 4.5 Chloride 98 Carbon Dioxide 32.0 Anion Gap 7 BUN 17 Creatinine < 0.15 L Estim Creat Clear Calc 532.04 Est GFR (MDRD) Af Amer 884 Est GFR (MDRD) Non-Af 731 BUN/Creatinine Ratio TNP Glucose 114 H Calcium 9.2 Phosphorus Magnesium 2.2 Albumin Clinical Impression(s) from Imaging Studies Chest X-Ray 05/27/17 04:02 IMPRESSION: Stable low lung volume. Compression of basilar parenchyma appears increased when compared to previous examination, an inflammatory/infectious process such as pneumonia is not excluded. Electronically Signed: Jenna Paula MD at 4:41 EST , Service support , Chest CTA 05/27/17 05:43 IMPRESSION: Infiltration in both lower lobes. There is no evidence of pulmonary embolism. Electronically Signed: Mikey Angeles MD at 8:01 EST Tel [phone], Service support , Chest X-Ray 05/28/17 05:55 IMPRESSION: Patchy left basilar infiltrate and/or atelectasis with a small left pleural effusion. Mild increased markings at the right lung base. Electronically Signed: Mikey Angeles MD at 9:21 EST Tel [phone], Service support , Chest X-Ray 05/30/17 09:40 IMPRESSION: The tip of the right PICC line catheter is in the right atrium. It should be pulled back approximately 2 cm. Electronically Signed: Mikey Angeles MD at 10:08 EST Tel [phone], Service support , Chest X-Ray 05/31/17 05:10 IMPRESSION: No acute cardiopulmonary disease. Electronically Signed: Leo Villarreal MD at 6:07 EST , Service support , Assessment/Plan Active and Suspected Problems Acute respiratory failure (Acute) RECOMMENDATIONS: 1. Continue the patient on room air trach collar as tolerated. Ventilatory support can be utilized as needed. 2. Physical therapy recommending outpatient PT 3. Continue aggressive bronchopulmonary hygiene. 4. Continue current antimicrobial regimen to complete treatment course 5. Continue tube feeds 6. The patient is medically stable for discharge from my perspective. IMPRESSIONS: 1. Acute on chronic respiratory failure secondary to progressive muscular dystrophy/pneumonia Patient with polymicrobial pneumonia that appears to be relatively sensitive. Antibiotics have been tailored and will be continued accordingly. The patient is now able to be maintained off of ventilatory support throughout the day. He has been reevaluated by physical therapy and they are recommending outpatient PT. Continue aggressive bronchopulmonary hygiene. 2. Type II non-ST elevation [place] Patient has had a pac[place] [address] Sanchez. Troponins have down trended. Continue current medical management. 3. Depression/hypertension/chronic pain syndrome/debility Complicates care, management, recovery and prognosis. Likely okay to continue with baseline medications. Continue to work with physical therapy. The patient refused his modified barium swallow. Continue tube feeds. This note was generated with [employer] dictation software. It may contain incorrect words, spelling, and punctuation that were not noted in checking the note before signing. Code Visit Inpatient E&M: 83277 Subs Hosp L2
--- NOTE | 2017-06-05 07:06 | PN_ITS ---
Subjective: The patient was seen and examined at the bedside this morning. Events from the last 24 hours have been reviewed. The patient is currently afebrile, hemodynamically stable and maintaining appropriate oxygen saturations on an FiO2 of 25%. Although the patient was initially scheduled for an MBS yesterday , the patient opted not to participate, noting that it was not necessary. No issues were identified overnight. The patient did work with physical therapy yesterday and they are recommending outpatient PT. Objective: The patient's most recent lab work, culture data and imaging studies have all been personally reviewed. Sputum culture was positive for Pseudomonas, E. coli and MRSA. Chest CTA, dated May 27 revealed bilateral lower lobe airspace disease. Surface echocardiogram from 2014 revealed an LV ejection fraction of 55%. General: Alert, Cooperative, No apparent distress HEENT: Atraumatic, PERRLA, Normocephalic Oral: Moist Mucosa, No Gingival or Mucosal Lesions/ Ulcerations Neck: Supple, No Nodes, Trachea Midline, - - Tracheostomy site is C/D/I. Lungs: No rhonchi, No wheeze, No rales, Diminished Cardiovascular: Regular rate, Regular Rhythm, Normal S1, Normal S2, No murmurs Abdomen: Bowel Sounds Present, Soft, Non Tender, - - PEG site is C/D/I Extremities: No clubbing, No cyanosis, No edema Skin: - - No significant change from previous. Musculoskeletal: No Tenderness to Palpation of Joints or Extremities Lymphatic: No Cervical, Supraclavicular, or Inguinal Adenopathy Neurological: Neuro grossly intact, - - Baseline musculoskeletal weakness. Psych/Mental Status: Normal Affect, Appropriate Vital Signs Temp Pulse Resp BP Pulse Ox 97.6 F L 79 11 L 119/74 100 06/05/17 06:34 06/05/17 06:34 06/05/17 06:34 06/05/17 06:34 06/05/17 06:34 Oxygen Delivery Method Mechanical Ventilator Weight: 196 lb 6.91 oz Body Mass Index (BMI) 29.1 Intake and Output for Last 24 Hours 06/03/17 06/04/17 06/05/17 23:59 23:59 23:59 Intake Total 2125 / 2125 3057 / 3057 590 / 590 Output Total 1650 / 1650 3400 / 3400 1100 / 1100 Balance 475 / 475 -343 / -343 -510 / -510 Labs (Last 48 Hours) 06/03/17 06/03/17 06/04/17 05:30 05:30 04:14 WBC RBC Hgb Hct MCV MCH MCHC RDW RDW Differential Plt Count MPV Immature Gran % (Auto) Neut % (Auto) Lymph % (Auto) [place] % (Auto) Eos % (Auto) Baso % (Auto) Absolute Neuts (auto) Absolute Lymphs (auto) Total Counted Diff Path Review Reviewed Sodium 140 Potassium 4.7 Chloride 102 Carbon Dioxide 31.0 Anion Gap BUN 16 Creatinine < 0.15 L Estim Creat Clear Calc 532.04 Est GFR (MDRD) Af Amer 884 Est GFR (MDRD) Non-Af 731 BUN/Creatinine Ratio TNP Glucose 115 H Calcium 8.8 Phosphorus 5.2 H Magnesium Albumin 2.7 L 3.1 L 06/04/17 06/04/17 04:14 04:14 WBC 8.0 RBC 4.78 Hgb 12.2 L Hct 38.0 L MCV 79.5 L MCH 25.5 L MCHC 32.1 RDW 17.9 H RDW Differential 48.7 H Plt Count 326 MPV 9.3 Immature Gran % (Auto) 1.500 H Neut % (Auto) 51.5 Lymph % (Auto) 34.0 [place] % (Auto) 10.7 H Eos % (Auto) 1.9 Baso % (Auto) 0.4 Absolute Neuts (auto) 4.1 Absolute Lymphs (auto) 2.70 Total Counted Not Reportable Diff Path Review Sodium 137 Potassium 4.5 Chloride 98 Carbon Dioxide 32.0 Anion Gap 7 BUN 17 Creatinine < 0.15 L Estim Creat Clear Calc 532.04 Est GFR (MDRD) Af Amer 884 Est GFR (MDRD) Non-Af 731 BUN/Creatinine Ratio TNP Glucose 114 H Calcium 9.2 Phosphorus Magnesium 2.2 Albumin Clinical Impression(s) from Imaging Studies Chest X-Ray 05/27/17 04:02 IMPRESSION: Stable low lung volume. Compression of basilar parenchyma appears increased when compared to previous examination, an inflammatory/infectious process such as pneumonia is not excluded. Electronically Signed: Jenna Paula MD at 4:41 EST , Service support , Chest CTA 05/27/17 05:43 IMPRESSION: Infiltration in both lower lobes. There is no evidence of pulmonary embolism. Electronically Signed: Mikey Angeles MD at 8:01 EST Tel [phone], Service support , Chest X-Ray 05/28/17 05:55 IMPRESSION: Patchy left basilar infiltrate and/or atelectasis with a small left pleural effusion. Mild increased markings at the right lung base. Electronically Signed: Mikey Angeles MD at 9:21 EST Tel [phone], Service support , Chest X-Ray 05/30/17 09:40 IMPRESSION: The tip of the right PICC line catheter is in the right atrium. It should be pulled back approximately 2 cm. Electronically Signed: Mikey Angeles MD at 10:08 EST Tel [phone], Service support , Chest X-Ray 05/31/17 05:10 IMPRESSION: No acute cardiopulmonary disease. Electronically Signed: Leo Villarreal MD at 6:07 EST , Service support , Assessment/Plan Active and Suspected Problems Acute respiratory failure (Acute) RECOMMENDATIONS: 1. Continue the patient on room air trach collar as tolerated. Ventilatory support can be utilized as needed. 2. Physical therapy recommending outpatient PT 3. Continue aggressive bronchopulmonary hygiene. 4. Continue current antimicrobial regimen to complete treatment course 5. Continue tube feeds 6. The patient is medically stable for discharge from my perspective. IMPRESSIONS: 1. Acute on chronic respiratory failure secondary to progressive muscular dystrophy/pneumonia Patient with polymicrobial pneumonia that appears to be relatively sensitive. Antibiotics have been tailored and will be continued accordingly. The patient is now able to be maintained off of ventilatory support throughout the day. He has been reevaluated by physical therapy and they are recommending outpatient PT. Continue aggressive bronchopulmonary hygiene. 2. Type II non-ST elevation [place] Patient has had a pacemaker [place] [address] Sanchez. Troponins have down trended. Continue current medical management. 3. Depression/hypertension/chronic pain syndrome/debility Complicates care, management, recovery and prognosis. Likely okay to continue with baseline medications. Continue to work with physical therapy. The patient refused his modified barium swallow. Continue tube feeds. This note was generated with [employer] dictation software. It may contain incorrect words, spelling, and punctuation that were not noted in checking the note before signing. Code Visit Inpatient E&M: 45839 Subs Hosp L2
--- NOTE | 2017-06-05 08:57 | PCM.DC ---
You will use the following diet at home:: Other - TUBE FEEDS Discharge Activity: Return to Normal Activity Allergies/Adverse Reactions: Allergies No Known Allergies Allergy (Verified 05/27/17 03:49) Medications to take at Discharge Sertraline HCl [Zoloft] 50 mg PO DAILY 04/17/14 Albuterol Aerosols [Ventolin Aerosols] 2.5 mg INHALATION Q4H PRN #25 vial 07/01/14 BusPIRone [Buspar] 15 mg PO BID 07/01/14 Cholecalciferol (VIT D3) [Vitamin D3] 2,000 unit PO DAILY 07/01/14 Glycopyrrolate 1.5 mg PO BID 07/01/14 Lisinopril [Zestril] 5 mg PO DAILY 07/01/14 Montelukast [Singulair] 10 mg PO DAILY 08/11/14 Morphine Sulfate [Morphine Sulfate ER] 30 mg PO BID 08/11/14 Opium Tincture 0.4 ml GT QODAY 08/11/14 Aspirin [Aspirin, Baby] 81 mg PO DAILY@0800 03/09/15 Cyclobenzaprine [Flexeril] 10 mg PO TID PRN PRN 03/09/15 Hydrocodone/Acetaminophen [Hydrocodon-Acetaminophn 10-325] 1 each PO TID PRN PRN 03/09/15 Senna [Senokot] 1 tablet PO BID 03/09/15 Pantoprazole Sodium [Protonix] 40 mg PO DAILY #90 tab 05/19/17 Primary Care Physician: Madhavi Ann,Out of [Primary Care Provider] - Proposed Discharge Date: 06/05/17
--- NOTE | 2017-06-05 08:59 | PCM.DC.SUM ---
Discharge Date and Diagnosis - Problem List Patient Problems: Active and Suspected Problems Acute respiratory failure (Acute) Date of Admission: 05/27/17 Date of Discharge: 06/05/17 - Primary Discharge Diagnosis Active and Suspected Problems Acute respiratory failure (Acute) - Secondary Discharge Diagnosis Chronic Problems Cardiomyopathy (Chronic) HTN (hypertension) (Chronic) Irritable bowel syndrome (Chronic) History of urinary calculi (Chronic) Hereditary progressive muscular dystrophy (Chronic) Hospital Course and Treatment Imaging Results: Clinical Impression(s) from Imaging Studies Chest X-Ray 05/27/17 04:02 IMPRESSION: Stable low lung volume. Compression of basilar parenchyma appears increased when compared to previous examination, an inflammatory/infectious process such as pneumonia is not excluded. Electronically Signed: Jenna Paula MD at 4:41 EST , Service support , Chest CTA 05/27/17 05:43 IMPRESSION: Infiltration in both lower lobes. There is no evidence of pulmonary embolism. Electronically Signed: Mikey Angeles MD at 8:01 EST Tel [phone], Service support , Chest X-Ray 05/28/17 05:55 IMPRESSION: Patchy left basilar infiltrate and/or atelectasis with a small left pleural effusion. Mild increased markings at the right lung base. Electronically Signed: Mikey Angeles MD at 9:21 EST Tel [phone], Service support , Chest X-Ray 05/30/17 09:40 IMPRESSION: The tip of the right PICC line catheter is in the right atrium. It should be pulled back approximately 2 cm. Electronically Signed: Mikey Angeles MD at 10:08 EST Tel [phone], Service support , Chest X-Ray 05/31/17 05:10 IMPRESSION: No acute cardiopulmonary disease. Electronically Signed: Leo Villarreal MD at 6:07 EST , Service support , Operations: None, - - Tracheostomy 04/29/14, PEG tube 05/03/14 Summary of Care Provided: Patient is a 56-year-old gentleman with multiple comorbidities including progressive muscular dystrophy, s/p tracheostomy, admitted with acute respiratory distress. Imaging studies on admission demonstrated bilateral infiltrate sputum cultures positive for MRSA as well as Pseudomonas 1. Acute on chronic respiratory failure secondary to worsening progressive muscular dystrophy as well as healthcare acquired pneumonia. Patient has been managed on the vent with consultation placed to intensive care/pulmonary medicine patient was discharged home with his previous Trilogy settings 2. Healthcare acquired pneumonia secondary to MRSA as well as Pseudomonas patient has been managed with clindamycin as well as Levaquin 3. Progressive muscular dystrophy status post trach as well as PEG tube placement requested for PT OT as tolerated 4. Severe hypophosphatemia repleted per protocol 5. Hypokalemia corrected per protocol 6. Acute non-ST LA type II secondary to demand ischemia as a result of patient underlying infection consult was placed to cardiology plan is to continue with medical management at this point 7. Dysphagia secondary to patient muscular dystrophy status post PEG tube placement 7. Conduction system disorder status post pacemaker placement next 8. Hypertension-blood pressure controlled, home medications continued with dose adjustment as needed 9. DVT prophylaxis SC Lovenox 10. Physical deconditioning PT OT as tolerated, consult also placed to social services coordinator to assist with discharge planning Discharge Diet: - - VIA TUBE FEEDS Discharge Activity: Return to Normal Activity Home Medications: Medications to take at Discharge Sertraline HCl [Zoloft] 50 mg PO DAILY 04/17/14 Albuterol Aerosols [Ventolin Aerosols] 2.5 mg INHALATION Q4H PRN #25 vial 07/01/14 BusPIRone [Buspar] 15 mg PO BID 07/01/14 Cholecalciferol (VIT D3) [Vitamin D3] 2,000 unit PO DAILY 07/01/14 Glycopyrrolate 1.5 mg PO BID 07/01/14 Lisinopril [Zestril] 5 mg PO DAILY 07/01/14 Montelukast [Singulair] 10 mg PO DAILY 08/11/14 Morphine Sulfate [Morphine Sulfate ER] 30 mg PO BID 08/11/14 Opium Tincture 0.4 ml GT QODAY 08/11/14 Aspirin [Aspirin, Baby] 81 mg PO DAILY@0800 03/09/15 Cyclobenzaprine [Flexeril] 10 mg PO TID PRN PRN 03/09/15 Hydrocodone/Acetaminophen [Hydrocodon-Acetaminophn 10-325] 1 each PO TID PRN PRN 03/09/15 Senna [Senokot] 1 tablet PO BID 03/09/15 Pantoprazole Sodium [Protonix] 40 mg PO DAILY #90 tab 05/19/17 Primary Care Physician: Madhavi Ann,Out of [Primary Care Provider] - Disposition: Home with Home Health Minutes spent on discharge:: 35 Patient Condition:: Stable Meaningful Use Info Meaningful Use Diagnoses (Choose all that apply): None applicable Code Visit Inpatient E&M: 17240 Disch Hosp
--- NOTE | 2017-06-05 09:53 | CASEMGMT ---
Notified by 7th grade social studies teacher that Dr. Webber is discharging patient today regardless of tube feed availability. SHANNAN FRANCISCO [place] [facility] [place] Denae who confirms order has been placed for appropriate tube feed formula with anticipated delivery date of 06/06/17 to patient's home. SHANNAN FRANCISCO spoke with ICU epic beacon specialists, Alexa, who will send the patient home with bottle of tube feed to last until [place] [facility] Per Denae, they will meet patient and patient's family at home with pump and trach suctioning supplies today. Per patient's bedside RN, patient's spouse will pick patient up with wheelchair van. RN CM will notify [facility] of patient's discharge and fax discharge documentation. No further RN CM intervention needs anticipated. RN CM will remain available to assist should additional needs arise.
[2017-06-05] MEDS: Glycopyrrolate 1 MG TABLET 1.5 MG GT (09:56)
[2017-06-05] MEDS: Chlorhexidine 15 ML PO (09:57)
[2017-06-05] MEDS: Famotidine 20 MG Tablet GT (09:57)
[2017-06-05] MEDS: Senna Tablet 1 TABLET GT (09:57)
[2017-06-05] MEDS: Aspirin 81 MG TAB.CHEW GT (09:57)
--- NOTE | 2017-06-05 10:25 | PCM.DC ---
- Discharge Diagnoses Current Active Problems: Current Active and Chronic Problems Acute respiratory failure (Acute) You will use the following diet at home:: Other - Tube feeding vital AF 1.2 at goal rate of 70 cc with 1 25 cc of water flushes every 4 hours Discharge Activity: Return to Normal Activity Additional Activity Instructions:: Resume home vent settings Allergies/Adverse Reactions: Allergies No Known Allergies Allergy (Verified 05/27/17 03:49) Medications to take at Discharge Sertraline HCl [Zoloft] 50 mg PO DAILY 04/17/14 Albuterol Aerosols [Ventolin Aerosols] 2.5 mg INHALATION Q4H PRN #25 vial 07/01/14 BusPIRone [Buspar] 15 mg PO BID 07/01/14 Cholecalciferol (VIT D3) [Vitamin D3] 2,000 unit PO DAILY 07/01/14 Glycopyrrolate 1.5 mg PO BID 07/01/14 Lisinopril [Zestril] 5 mg PO DAILY 07/01/14 Montelukast [Singulair] 10 mg PO DAILY 08/11/14 Morphine Sulfate [Morphine Sulfate ER] 30 mg PO BID 08/11/14 Opium Tincture 0.4 ml GT QODAY 08/11/14 Aspirin [Aspirin, Baby] 81 mg PO DAILY@0800 03/09/15 Cyclobenzaprine [Flexeril] 10 mg PO TID PRN PRN 03/09/15 Hydrocodone/Acetaminophen [Hydrocodon-Acetaminophn 10-325] 1 each PO TID PRN PRN 03/09/15 Senna [Senokot] 1 tablet PO BID 03/09/15 Pantoprazole Sodium [Protonix] 40 mg PO DAILY #90 tab 05/19/17 Primary Care Physician: Madhavi Ann,Out of [Primary Care Provider] - Proposed Discharge Date: 06/05/17
--- NOTE | 2017-06-05 10:36 | CASEMGMT ---
[facility] Contact Information:
--- NOTE | 2017-06-05 10:40 | CASEMGMT ---
SHANNAN FRANCISCO called [facility] and spoke to Rika re: patient discharge. Rika verbalizes understanding and is scheduled to meet with patient at home today at 2pm. SHANNAN FRANCISCO faxed discharge summary, D/I, and [employer] contact in case of questions regarding tube feeds or trach supplies.
== END 2017-06-05 10:30 | disposition home health service (06) | DRG 207 ==
LOC: ED 04:51 → ICU 07:05
PROVIDERS: Internal Medicine; Internal Medicine Critical Care Medicine; Admitting Provider Family Medicine; Emergency Provider Emergency Medicine; Visit Provider Internal Medicine
DX: J96.20 Acute and chronic respiratory failure, unspecified whether with hypoxia or hypercapnia (principal); I21.A1 Myocardial infarction type 2; J15.1 Pneumonia due to Pseudomonas; J15.212 Pneumonia due to Methicillin resistant 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; G71.0 Muscular dystrophy; I42.9 Cardiomyopathy, unspecified; E83.39 Other disorders of phosphorus metabolism; Z93.0 Tracheostomy status; Z95.0 Presence of cardiac pacemaker; I10 Essential (primary) hypertension; Z87.442 Personal history of urinary calculi; K58.9 Irritable bowel syndrome, unspecified; Y95 Nosocomial condition; E87.6 Hypokalemia; R13.10 Dysphagia, unspecified
CPT/HCPCS: 31720; 36415; 36569; 71045; 71275; 80048; 80053; 80069; 80202; 81001; 82040; 83605; 83735; 84100; 84484; 85025; 85027; 85610; 85730; 87040; 87070; 87077; 87086; 87088; 87184; 87186; 87205; 87449; 87641; 87804; 92526; 93005; 94002; 94003; 94640; 94668; 97110; 97161; 97165; 97530; 97802; 97803; 99285; J7030; J7040; J7050; Q9967; A4216; J2405; J3490

== ENCOUNTER → 2017-06-18 12:32 | Outpatient (CLI) | payer OTHER, MEDICAID, SELFPAY | PROVIDERS: Visit Provider Nurse Practitioner Acute Care | DX: R19.7 Diarrhea, unspecified (principal) | CPT/HCPCS: 87493 ==

== ENCOUNTER → 2017-07-09 13:13 | Outpatient (CLI) | payer OTHER, MEDICAID, SELFPAY ==
--- NOTE | 2017-07-09 13:15 | SP.MBSS_ITS ---
PRIMARY / SECONDARY DIAGNOSIS: dysphagia (R13.10) REFERRING PHYSICIAN: Radha Denton PA-C CURRENT DIET: regular textures, thin liquids DENTITION: WFL MENTAL STATUS: WNL RESPIRATORY STATUS: O2 via room air; use of home ventilator primarily at night PREVIOUS MODIFIED BARIUM SWALLOW STUDY: none REASON FOR REFERRAL: Patient is a 56 year old male referred for a modified barium swallow (MBS) study to objectively assess the Patients oropharyngeal swallow function under fluoroscopy secondary to progressive dysphagia requiring alternative means of nutrition. Patient currently NPO with alternative means of nutrition via PEG recommended, though reports stopping all supplementation due to reported intolerance of alternative supplementation (cramping, nausea), reports consuming supplementation via mouth (Boost shakes), reports cheating with intermittent PO intake at very limited quantities. O2 between room air vs. mechanical ventilation at 30% FIO2, tracheostomy present (Shiley 6 DCT cuffed, uses PMSV). Patient accompanied by his home health nurse, reports requiring intermittent suctioning, Patient reports feeling anxious in regard to testing. MEDICAL HISTORY: Hereditary progressive muscular dystrophy, cardiomyopathy, hypertension, irritable bowel syndrome, history of urinary calculi STUDY FINDINGS: Patient participated in a Modified Barium Swallow (MBS) study on 07/09/2017. Dr. Angeles was the radiologist present for this evaluation. This study was recorded in the lateral view and images were sent to PACs for storage. The following consistencies were presented to this patient for analysis of oropharyngeal swallow function: thin liquids, nectar thickened liquids, pudding , and a regular textured, Leda Doone cookie. Results of the MBS are as follows: PENETRATION / ASPIRATION SCALE (STEPHENSON): 1 = does not enter airway 2 = enters airway/above vocal folds/ejected 3 = enters airway/above vocal folds/not ejected 4 = enters airway/contacts vocal folds/ejected 5 = enters airway/contacts vocal folds/not ejected 6 = enters airway/below vocal folds/ejected 7 = enters airway/below vocal folds/not ejected despite effort 8 = enters airway/below vocal folds/no effort VIDEOFLOROSCOPIC SCALE SCORE (STEPHENSON): Grade I = aspiration of material that has penetrated into the laryngeal vestibule, intact cough reflex Grade II = aspiration < 10 % of the bolus, intact cough reflex Grade III = aspiration of < 10 % of the bolus, reduced cough reflex or aspiration of > 10 % of the bolus, intact cough reflex Grade IV = aspiration of > 10 % of the bolus, reduced cough reflex PENETRATION / ASPIRATION SCALE (SCORE) WITH VIDEOFLOROSCOPIC SCALE SCORE: Thin liquids via straw (single sip): 6 Thin liquids via straw (single sip): 5 Thin liquids via straw (single sip): 3 Thin liquids via straw (single sip): 3 [place] thickened liquids via straw (single sip): 1 [place] thickened liquids via straw (single sip): 1 [place] thickened liquids via straw (single sip): 1 Pudding via spoon: 1 Thin liquids via straw (single sip): 1 Thin liquids via straw (single sip): 2 Regular textured cookie: 1 Thin liquids via straw (single sip): 5 Thin liquids via straw (single sip): 5 IMPRESSION: DIAGNOSIS: moderate to severe oropharyngeal dysphagia (R13.12) ORAL PHASE CHARACTERIZED BY: LABIAL SEAL: no labial escape TONGUE CONTROL DURING BOLUS MANIPULATION: intermittent escape to lateral buccal cavity/floor of mouth BOLUS PREPARATION / MASTICATION: slow prolonged chewing/mashing with complete recollection BOLUS TRANSPORT / LINGUAL MOTION: brisk tongue motion ORAL RESIDUE: trace residue lining oral structures PHARYNGEAL PHASE CHARACTERIZED BY: INITIATION OF PHARYNGEAL SWALLOW: bolus head in pyriforms at first hyoid excursion intermittently during thin liquid trials; bolus head at posterior laryngeal surface of epiglottis at first hyoid excursion across remaining trials SOFT PALATE ELEVATION: no bolus between soft palate and pharyngeal wall LARYNGEAL ELEVATION: partial superior movement of thyroid cartilage/partial approximation of arytenoids cartilage to epiglottic petiole with slight deterioration as trials progressed ANTERIOR HYOID EXCURSION: no anterior movement EPIGLOTTIC MOVEMENT: partial epiglottic inversion LARYNGEAL VESTIBULE CLOSURE AT HEIGHT OF SWALLOW: incomplete laryngeal vestibule closure with narrow column of air/contrast in laryngeal vestibule PHARYNGEAL STRIPPING WAVE: pharyngeal stripping wave absent PHARYNGOESOPHAGEAL SEGMENT OPENING: partial distension and minimal duration with marked obstruction of flow TONGUE BASE RETRACTION: trace column of contrast between tongue base and posterior pharyngeal wall PHARYNGEAL RESIDUE: majority of contrast within or on pharyngeal structures ( pyriform sinus, to a lesser extent the valleculae), with minimal pharyngeal clearance particularly with more vicious textures ESOPHAGEAL PHASE CHARACTERIZED BY: ESOPHAGEAL BOLUS CLEARANCE IN THE UPRIGHT POSITION: could not view EFFECTS OF TREATMENT STRATEGIES ATTEMPTED: Cough and reswallow = ineffective Multiple swallows = minimally effective Liquid chaser = moderately effective Reduced bolus size = moderately effective DIET TEXTURE RECOMMENDATIONS: Will recommend a pureed textured, nectar thickened liquid diet with continued supplementation via alternative means of nutrition (PEG) COMPENSATORY STRATEGIES RECOMMENDED: Supervision with total feed, reduced bolus volume (1/4th tsp.), reduced rate of intake, liquid chaser (at least 2-3) following purees, straws with all liquids, seated upright at 90 degrees during PO intake, remain upright for 30- 60 minutes post meal, medications crushed with applesauce. INTERPRETATION OF RESULTS: Patient presents with moderate to severe oropharyngeal dysphagia (R13.12) secondary to hereditary progressive muscular dystrophy. Oral phase primarily marked by mild mastication inefficiency with noted prolonged period of mastication required albeit sufficient to facilitate bolus breakdown. Pharyngeal phase marked by delayed pharyngeal swallow onset timing resulting in consistent suboptimal bolus location upon swallow onset contributing to consistent prandial penetration with thin liquids; significantly impaired closure of the airway during deglutition attributed to a complete absence of anterior hyoid excursion resulting in insufficient epiglottic inversion and impaired laryngeal vestibule closure / pressure contributing to consistent prandial penetration with thin liquids; and significantly impaired pharyngeal motility / pharyngeal dysmotility attributed primarily to apparent absent posterior pharyngeal stripping wave action in addition to reduced pharyngoesophageal segment relaxation and duration of opening resulting in copious pharyngeal retention primarily within the pyriforms with significant extension to the valleculae with more viscous textures. Insufficient laryngeal vestibule pressure generated to expel penetrated material. Very weak and ineffective volitional cough generated to expel penetrated material. Patients swallow appeared to slightly degrade as trials progressed, concerning for progressive presence and extent of pharyngeal dysmotility and impaired closure of the airway during deglutition; with predicted high likelihood for aspiration of all consistencies with prolonged PO intake durations. Patient unlikely to tolerate aspiration of PO intake associated with the Patients non-ambulatory status and impaired respiratory status. No significant aspiration appreciated throughout trials, unable to definitively rule out silent aspiration. RECOMMENDATIONS: Would recommend strict adherence to recommended aspiration precautions, as this Patient is highly susceptible to further medical complications associated with aspiration due to the Patients weak, nonproductive cough, extensive pharyngeal phase deficits with both airway protection and pharyngeal motility, the Patients non-ambulatory status, and impaired respiratory status. Patient may benefit from continued skilled speech-language intervention targeting continued diet texture management; training and implementation of recommended compensatory strategies; training, implementation, and Patient education regarding implementation of the FFWP; and Patient / caregiver training targeting meal preparation / thickened liquid preparation via outpatient or home health setting. Recommend dietary consultation due to the Patient and Patients caregiver concern with continuing with alternative means of nutrition, with the Patient highly unlikely to be able to consistently and safely consume enough caloric intake to satisfy daily needs. ADDITIONAL COMMENTS/RECOMMENDATIONS: Results and recommendations were discussed with the Patient immediately following MBS completion, with the Patient verbalizing understanding and agreement with all recommendations and education provided. IMAGE COUNT: [id number] G-CODES: SWALLOWING [id number] Current Status: CM SWALLOWING [id number] Goal Status: CM SWALLOWING [id number] Discharge Status: CM
--- NOTE | 2017-07-09 13:16 | RAD_ITS ---
STUDY: SWALLOWING STUDY REASON FOR EXAM: Male, 57 years old. Dysphagia. Muscular dystrophy. TECHNIQUE: The examination was performed with Speech Pathology in attendance. Under fluoroscopic observation, the patient ingested thin barium, thick barium, barium pudding, and barium coated cracker. FLUOROSCOPY TIME: 3:00 minutes/seconds. [id number] spot images were obtained. RADIOLOGIST INVOLVEMENT: Radiologist was present and providing direct supervision. COMPARISON: None. FINDINGS: The following was observed during swallowing of the various mixtures of barium: Thin Barium: Transient penetration with ejection upon ingestion of thin liquids. Thick Barium: There was no evidence of aspiration or laryngeal penetration. Barium Pudding: There was no evidence of aspiration or laryngeal penetration. Barium Coated Cracker: There was no evidence of aspiration or laryngeal penetration. RAD/Swallowing Function w/Video IMPRESSION: Transient penetration with ejection following ingestion of thin liquids. The swallow study findings were discussed with the patient by the speech pathologist at the conclusion of the examination. Please see speech pathology report for more information and recommendations. Electronically Signed: Mikey Angeles MD at 14:42 EST Tel [phone], Service support ,
== END ==
PROVIDERS: Visit Provider Physician Assistant
DX: R13.10 Dysphagia, unspecified (principal)
CPT/HCPCS: 74230; 92611

== ENCOUNTER → 2017-12-31 12:42 | Outpatient (CLI) | payer OTHER, MEDICAID, SELFPAY | PROVIDERS: Visit Provider Otolaryngology Otolaryngology/Facial Plastic Surgery | DX: J95.09 Other tracheostomy complication (principal); Y69 Unspecified misadventure during surgical and medical care | CPT/HCPCS: 87070; 87077; 87186; 87205 ==

== ENCOUNTER → 2018-01-24 13:27 | Outpatient (CLI) | payer OTHER, MEDICAID, SELFPAY | PROVIDERS: Visit Provider Nurse Practitioner Acute Care | DX: J18.9 Pneumonia, unspecified organism (principal) | CPT/HCPCS: 87070; 87077; 87186; 87205 ==

== ENCOUNTER 2018-02-02 11:58 | Day surgery (SDC) | payer OTHER, MEDICAID, SELFPAY ==
[2018-02-02] VITALS (7 sets, daily range): BP systolic 149–183; BP diastolic 64–94; PULSE 72–92; RESP 16; TEMP 36.2–36.7; O2SAT 96–100; BMI 30.8
--- NOTE | 2018-02-02 12:18 | HP.PCM_ITS ---
History and Physical Date of Admission: 02/02/18 HISTORY AND PHYSICAL ? Benjamin Locke 1960 ? REFERRING PHYSICIAN: ??Self ? CHIEF COMPLAINT: ??Established Patient (peg tube issues sluggish) ? HPI: The patient is a 57 year old male who presents with concerns of G-tube difficulties. ? Benjamin Locke is a 57 year old male who presents today with home health aide to have his PEG tube site checked. ?Patient underwent EGD with PEG tube placement by me?on 05/29/17 while recently hospitalized at [facility] with pneumonia. ?The patient has a tracheostomy. ?He is wheelchair dependent. ? ? I had seen the patient in December 2017 with a complaint was that medications?could be?given through the tube without difficulty, but while attempting to aspirate liquid out today - cranberry colored liquid was aspirated without return of gastric fluid. ?The tube was irrigated and it was felt that this was likely due to the mushroom suctioning the back wall of the stomach.. ? He has noted the same problems since that time. ? PAST MEDICAL HISTORY PAST MEDICAL HISTORY Diagnosis Date ? Cardiomyopathy ? ? Chronic back pain ? ? from muscular dystrophy ? Depression ? ? Hemorrhage of rectum and anus ? ? Hemorrhoids 12/21/2009 ? HTN (hypertension) ? ? IBS (irritable bowel syndrome) ? ? (muscular dystrophy) ([facility]) ? ? Pacemaker ? ? Dr. Lopez ? Unspecified thrombosed hemorrhoids ? ? Wheelchair bound ? ? needs Torsten lift ? ? PAST SURGICAL HISTORY PAST SURGICAL HISTORY Procedure Laterality Date ? COLONOSCOP W/ OR W/O BRSH SPEC ? 10/21/2009 ? repeat in ? EGD W/O BRSH W/PEG/ENDOS ? 05/29/2017 ? EGD W/O OR W/BRUSH/WASH ? 05/03/14 ? EGD with peg tube placement [facility] inpt ? HEMORR, EXT THROMB ENUCL/ EXCIS ? 06/24/07 ? HEMORRHOIDECTOMY ? 12/21/2009 ? PACEMAKER (PM) ? ? ? PAST SURGICAL HISTORY OF ? 1976 ? lengthen tendons bilat legs ? S LITHOTRIPSY BASKET ?x2 ? ? CURRENT MEDICATIONS ? Current Outpatient Prescriptions: triamcinolone acetonide (NASACORT) 55 mcg nasal inhaler Use 2 Sprays in the nose once daily. bacitracin 500 unit/gram ointment Apply 1 application to affected area twice daily. Cholecalciferol, Vitamin D3, (VITAMIN D) 1,000 unit cap Take 1,000 Units by mouth once daily. levoFLOXacin (LEVAQUIN) 750 mg tablet Take 750 mg by mouth once daily. Cetirizine 10 mg cap Take by mouth. senna (SENOKOT) 8.6 mg tab Take 8.6 mg by mouth twice daily. pantoprazole DR (PROTONIX) 40 mg tablet Take 40 mg by mouth once daily. aspirin 81 mg chewable tablet Take 81 mg by mouth once daily. busPIRone (BUSPAR) 15 mg tablet Take 15 mg by mouth twice daily. glycopyrrolate (ROBINUL) 1 mg tablet Take 1 mg by mouth twice daily. lisinopril (ZESTRIL, PRINIVIL) 5 mg tablet Take 5 mg by mouth once daily. montelukast (SINGULAIR) 10 mg tablet Take 10 mg by mouth daily at bedtime. cyclobenzaprine (FLEXERIL) 10 mg tablet Take 10 mg by mouth twice daily as needed. Albuterol Sulfate 0.63 mg/3 mL nebulizer solution Use 1 Ampule via nebulizer every 6 hours as needed. OPIUM TINCTURE 10 MG/ML (MORPHINE) ORAL for diarrhea hydrocodone bit/acetaminophen(VICODIN ES 7.5 MG-750 MG TAB) Take one(1) tablet every four(4) to six(6) hours as needed for pain. ?Do not exceed 5 pills per day. MORPHINE 30 MG TAB Take one(1) tablet two(2) times daily. sertraline hcl(ZOLOFT 50 MG TAB) Take one(1) tablet daily. carvedilol (COREG) 6.25 mg tablet Take 6.25 mg by mouth once daily. famotidine (PEPCID) 20 mg tablet Take 20 mg by mouth twice daily. ramipril(ALTACE 10 MG CAP) Take one(1) tablet two(2) times daily. ? No current facility-administered medications for this visit. ? ALLERGIES: Patient has no known allergies. ? PERSONAL HISTORY: SOCIAL HISTORY Social History ??Marital status: ?Spouse name: ?Years of education: ?Number of children: ? Social History Main Topics ??Smoking status: Never Smoker ?Alcohol use: No ?Drug use: No ? FAMILY HISTORY: FAMILY HISTORY No family history on file. ? REVIEW OF SYMPTOMS: ??The review of systems data was entered by the nurse and reviewed by me ? There are no exam notes on file for this visit. ? ? PHYSICAL EXAMINATION: ? General: ?The patient is 57 year old male, well nourished, well hydrated in no acute distress. ?The patient is oriented to time, place, and person. ? VITALS: There were no vitals taken for this visit.?There is no height or weight on file to calculate BMI.? ? HEENT: ?Normal cephalic, ataumatic, pupils are equally round, sclera are anicteric, mucous membranes are moist, oropharynx is clear. ?Neck has no masses, asymmetry or lymphadenopathy. ?Tracheostomy in place ? Respiratory: ?Clear to auscultation and percussion. ?Normal respiratory excursion and pattern. ? Cardiac: ?Examination is regular rate and rhythm. ? Abdominal exam: ?Soft, nontender, ?with no palpable masses. ?No hepatosplenomegaly. ?No palpable hernias. ?PEG tube site clean ?? Rectal exam: exam deferred ? Extremities: ?no clubbing, cyanosis or edema. ?No adenopathy. ? Other: ? LABORATORY VALUES: As Noted ? RADIOLOGIC STUDIES: ?As Noted ? Assessment ? IMPRESSION: Inability to aspirate through PEG tube ? PLAN: ?I plan to perform upper?endoscopy and likely PEG tube replacement tube balloon replacement PEG set. ??We discussed the risks and benefits of the planned endoscopy. ?I have informed the patient that complications can occur including failure to complete the endoscopy and perforation. ?The patient had the opportunity to ask questions concerning the planned endoscopy. ?My staff has also explained the procedure to the patient in understandable terms and has given the patient printed material concerning the procedure. ?The patient freely consents to surgery. ? ? ? The patient has medical comorbidities for which I plan to perform the procedure under monitored anesthetic care. ? Diagnoses: (Z93.1) Status post insertion of percutaneous endoscopic gastrostomy (PEG) tube (HCC) ?(primary encounter diagnosis) (J96.20) Acute on chronic respiratory failure, unspecified whether with hypoxia or hypercapnia (HCC) ? Return to Clinic: The patient is instructed to follow-up with me after the testing has been completed. ? Ac Kennedy MD
--- NOTE | 2018-02-02 14:01 | OP.ENDO_ITS ---
Patient Name: Benjamin Locke Procedure Date: 02/02/2018 12:40 PM Date of : 1960 Age: 57 Procedure: Upper GI endoscopy Indications: Replace PEG tube due to malfunctioning gastrostomy tube Providers: Ac Kennedy MD Referring MD: Ac Kennedy MD Medicines: Monitored Anesthesia Care Patient Profile: This is a 57 year old male. Refer to note in patient chart for documentation of history and physical. Complications: No immediate complications. Procedure: Pre-Anesthesia Assessment: - Prior to the procedure, a History and Physical was performed, and patient medications and allergies were reviewed. The patient is competent. The risks and benefits of the procedure and the sedation options and risks were discussed with the patient. All questions were answered and informed consent was obtained. Patient identification and proposed procedure were verified by the physician, the nurse and the multi craft maintenance technician in the procedure room. Mental Status Examination: alert and oriented. Airway Examination: normal oropharyngeal airway and neck mobility. Respiratory Examination: clear to auscultation. CV Examination: normal. Prophylactic Antibiotics: The patient does not require prophylactic antibiotics. Prior Anticoagulants: The patient has taken no previous anticoagulant or antiplatelet agents. ASA Grade Assessment: III - A patient with severe systemic disease. After reviewing the risks and benefits, the patient was deemed in satisfactory condition to undergo the procedure. The anesthesia plan was to use monitored anesthesia care (MAC). Immediately prior to administration of medications, the patient was re-assessed for adequacy to receive sedatives. The heart rate, respiratory rate, oxygen saturations, blood pressure, adequacy of pulmonary ventilation, and response to care were monitored throughout the procedure. The physical status of the patient was re-assessed after the procedure. After obtaining informed consent, the endoscope was passed under direct vision. Throughout the procedure, the patient's blood pressure, pulse, and oxygen saturations were monitored continuously. The gastroscope was introduced through the mouth, and advanced to the jejunum. The upper GI endoscopy was accomplished without difficulty. The patient tolerated the procedure well. Scope In: 1:36:34 PM Scope Out: 1:54:15 PM Total Procedure Duration Time 0 hours 17 minutes 41 seconds Findings: The examined jejunum was normal. The in the duodenum was normal. There was evidence of a dislodged gastrostomy tube present on the anterior wall of the stomach. This was characterized by Gtube end in submucosa, but able to flush. The PEG required removal because it was embedded. The PEG was removed under endoscopic vision. Removal was easily accomplished. An externally removable 22 Fr Bard gastrostomy tube was lubricated. The guide wire was passed through the existing G-tube port and snared endoscopically. The endoscope and snare were then removed, pulling the wire out through the mouth. The g-tube was tied to the guidewire, pulled through the mouth into the stomach and then pulled out from the stomach through the skin. The bumper was attached to the gastrostomy tube. The feeding tube was then cut to an appropriate length. The final position of the gastrostomy tube was confirmed by relook endoscopy, and skin marking noted to be 4.5 cm at the external bumper. The final tension and compression of the abdominal wall by the PEG tube and external bumper were checked and revealed that the bumper was loose and lightly touching the skin. The tube was capped, and the tube site was cleaned and dressed. The exam of the stomach was otherwise normal. The examined esophagus was normal. Impression: - Normal examined jejunum. - Normal. - Dislodged gastrostomy tube present characterized by Gtube end in submucosa, but able to flush. - Normal esophagus. - The PEG was removed because it was embedded, and replaced with an externally removable PEG. - No specimens collected. Recommendation: - Discharge patient to home. - Resume previous diet. - Continue present medications. Procedure Code(s): --- Professional --- 44764, Esophagogastroduodenoscopy, flexible, transoral; with directed placement of percutaneous gastrostomy tube CPT copyright 2017 [employer]. All rights reserved. The codes documented in this report are preliminary and upon death surveys coder review may be revised to meet current compliance requirements. Ac Kennedy MD 02/02/2018 2:01:17 PM This report has been signed electronically. Number of Addenda: 0 Note Initiated On: 02/02/2018 12:40 PM
== END 2018-02-02 15:02 | disposition home or self-care (01) ==
LOC: EN 12:01 → AC 12:02
PROVIDERS: Referring Provider Surgery; Visit Provider Surgery
PROC: 0DJ08ZZ Inspection of Upper Intestinal Tract, Via Natural or Artificial Opening Endoscopic (ICD-10-PCS; CPT 43235; principal; 2018-02-02 12:55)
PROC: 0DH64UZ Insertion of Feeding Device into Stomach, Percutaneous Endoscopic Approach (ICD-10-PCS; CPT 43246; 2018-02-02 12:55)
DX: K94.23 Gastrostomy malfunction (principal); Y83.3 Surgical operation with formation of external stoma as the cause of abnormal reaction of the patient, or of later complication, without mention of misadventure at the time of the procedure; J96.20 Acute and chronic respiratory failure, unspecified whether with hypoxia or hypercapnia; G71.00 Muscular dystrophy, unspecified; G89.29 Other chronic pain; M54.9 Dorsalgia, unspecified; F32.9 Major depressive disorder, single episode, unspecified; Z95.0 Presence of cardiac pacemaker; Z86.14 Personal history of Methicillin resistant 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 infection; Z99.3 Dependence on wheelchair
CPT/HCPCS: 43246; J7120; C1769

== ENCOUNTER 2018-07-07 10:12 | Emergency (ER) | payer OTHER, MEDICAID, SELFPAY ==
[2018-07-07 10:14] VITALS: BP 147/92; PULSE 97; RESP 17; TEMP 36.7; O2SAT 96; BMI 30.9
--- NOTE | 2018-07-07 10:29 | EKG12_ITS ---
Test Reason : CP Blood Pressure : / mmHG Vent. Rate : 092 BPM Atrial Rate : 092 BPM P-R Int : 186 ms QRS Dur : 168 ms QT Int : 422 ms P-R-T Axes : 016 263 061 degrees QTc Int : 521 ms Atrial-sensed ventricular-paced rhythm Abnormal ECG Confirmed by STACY CARROLL ([id number]), senior technical editor BRANDY ROSENBERG ([id number]) on 07/10/2018 1:15:22 PM Referred By: EVAN Confirmed By:STACY CARROLL
[2018-07-07 11:06] LABS: Absolute Lymphocyte Count 1.63 X10^3/ul (0.83-4.51); Absolute Neutrophil Count 4.1 X10^3/uL (2.0-7.7); Basophil# 0.03 X10^3/uL; Basophil% 0.5 % (0-1); Eosinophil# 0.12 X10^3/uL; Eosinophils% 1.9 % (0-5); Hematocrit 47.2 % (40-54); Lymphocyte # 1.63 X10^3/ul (4.0); Lymphocyte % 25.3 % (19-41); Mean Corp Hgb Conc 31.8 g/gl (32-36); Mean Corpuscular Hgb 26.7 pg (27.0-32.0); Mean Corpuscular Volume 84.1 fL (80-94); Monocyte# 0.55 X10^3/uL; Monocyte% 8.6 % (0-10); Neutrophil # 4.09 X10^3/uL (2.7-7.7); Neutrophil % 63.5 % (47-70); Platelet Count 269 K/mm3 (150-450); RBC Distribution Width CV 16.1 % (11.6-14.6); RBC Distribution Width SD 49.3 fl (35.1-43.9); Red Blood Count 5.61 M/mm3 (4.6-6.2); White Blood Count 6.4 K/mm3 (4.4-11.0)
[2018-07-07 11:09] LABS: POSITIVE COUNT NO; POSITIVE DIFFERENTIAL NO; POSITIVE MORPHOLOGY NO
[2018-07-07 11:18] LABS: Anion Gap 12 (5-15); BUN 11 mg/dL (7-18); BUN/Creat Ratio 51.6 RATIO (10-20); Calcium,Total 9.4 mg/dL (8.5-10.1); Chloride 102 mmol/L (98-107); Creatinine, Serum 0.21 mg/dL (0.70-1.30); EST Glomerular Filtration Rate 486 mL/min (>60); Est Glom Filt Rate - Afr Amer 588 mL/min (>60); Estimated Creatinine Clearance 383.43 ml/min; Glucose 108 mg/dL (74-106); Potassium 4.2 mmol/L (3.5-5.1); Sodium Level 139 mmol/L (136-145)
--- NOTE | 2018-07-07 11:57 | ED.DCSUM_ITS ---
History of Present Illness Chief Complaint: Chest Pain Detail of Chief Complaint: Localized to a confined area left side of the chest Informant: Patient Onset: Today Context: Sudden Onset Timing: Intermittent - Duration 30-45 minutes Quality: Discomfort Location: Left pectoral area size of a quarter Current Severity: - - Presently he has no pain Maximum Severity: Moderate Worsened by: Nothing Relieved by: Nothing Associated Symptoms: None Narrative: Patient is a 58-year-old male with history of hereditary muscular dystrophy who presents with left-sided chest pain. He had left-sided chest pain in the past and told by his crown assembly machine operator Dr. Dino Lopez is secondary to arterial collapse. Patient has no known history of coronary disease. Patient states the location and quality the pain is no different than prior. Today the pain lasted a little longer and may have been a little more severe. He has had multiple episodes in the past. He has no associated symptoms. There is no radiation. Past Medical History - Allergies and Home Meds Allergies/Adverse Reactions: Allergies No Known Allergies Allergy (Verified 07/07/18 10:13) Primary Care Physician: Care Physician,No Primary [Primary Care Provider] - Prior records reviewed: Yes Past Medical History: - - Sick sinus syndrome, hypertension, hereditary muscular dystrophy, hypercholesterolemia and vent dependent Surgical History: noncontributory, - Lives: Spouse/ Significant Other Smoking Status: Never smoker Alcohol: None Drugs: None - Family History Maternal Family History: Family History (Last Reviewed 03/05/18 @ 07:09 by Sherrie Vieira) Mother Heart disease Myocardial infarction Father Thyroid cancer Sister Thyroid cancer Family History: Reports: No pertinent history Paternal Family History: Family History (Last Reviewed 03/05/18 @ 07:09 by Sherrie Vieira) Mother Heart disease Myocardial infarction Father Thyroid cancer Sister Thyroid cancer Family History: Reports: No pertinent history Review of Systems General: Denies: Chills, Fever, Malaise, Sweats Eyes: Denies: Visual changes - bilaterally, Blurred Vision - bilaterally, Diplopia ENT: Denies: Bilateral ear pain, Rhinorrhea, Sore throat Cardiovascular: Reports: Chest pain. Denies: Palpitations Respiratory: Denies: Dyspnea, Cough, Dyspnea on exertion Gastrointestinal: Denies: Abdominal pain, Nausea, Vomiting, Diarrhea, Melena, Hematochezia Genitourinary: Denies: Dysuria, Hematuria, Frequency Musculoskeletal: Reports: - - He denies any change in the color of his extremities or swelling compared to normal.. Denies: Myalgias, Arthralgias, Nec k pain, Back pain, Extremity Pain Skin: Denies: Rash, Wounds Neurological: Denies: Headache, Weakness, Numbness Allergy: Denies: Uticaria, Swelling of the mouth, Swelling of the tongue Physical Exam Vital Signs/Narrative: Vital Signs Temp Pulse Resp BP Pulse Ox 07/07/18 10:14 98.1 F 97 17 147/92 H 96 Inital Vital Signs reviewed: Yes General: Well nourished, Well developed, Obese, No Acute Distress Head: Normocephalic, Atraumatic. Negative for: Trauma, Tenderness Eyes: Perrl, EOMI. Negative for: Pale conjunctiva, Scleral icterus ENT: Moist mucous membranes, No rhinorrhea. Negative for: Sinus tenderness Neck: Supple, Nontender, No lymphadenopathy, No JVD Cardiovascular: Regular rate, Regular rhythm, No murmurs, Normal S1, Normal S2 Respiratory: No distress, CTA bilaterally, Chest nontender Abdomen: Soft, Nontender, Nondistended, Normal bowel sounds, No masses Back: Nontender Extremities: - - There is no asymmetry, swelling, discoloration, leg vein distention, palpable cords or tenderness along the distribution of the deep venous system. Skin: Normal color, No rash Neurological: Alert, Oriented x3, Cranial nerves II-XII grossly intact. Negative for: Normal Strength, Normal Sensation, Normal DTR, Normal Gait, Confused, Disoriented Psychological: - - Affect is flat. Thought content is normal. Diagnostic/Tx/Re-eval - Rhythm Strip Rhythm Strip: Atrial sensed wide-complex rhythm rate of 85-90 Ectopy: None - EKG Initial EKG Interpretation: - - Atrial sensed ventricular paced rhythm. MT interval normal. QRS duration prolonged and suggestive of left bundle branch block. Amasa is to left. No acute ischemic changes noted. - Medical Decision Making With patient having vague symptoms EKG was obtained per nurse protocol. CBC and electric panel was obtained to evaluate for anemia, infectious etiology metabolic cause. He was placed on a monitor and no ectopy was noted during his ER stay. Since his workup is unremarkable and he is experienced this pain in the past will discharge to home to follow-up with Dr. Moodispaw as needed. ED Disposition - Plan for ED Patient: Disposition: Home or Assisted Living Diagnosis: Intermittent left-sided chest pain Instructions: ED Chest Pain NonCardiac Referrals: Care Physician,No Primary [Primary Care Provider] - Dino Lopez MD [STAFF PHYSICIAN] - As Needed
[2018-07-07 12:58] VITALS: BP 153/89; PULSE 97; RESP 21; O2SAT 97
[2018-07-07 13:49] VITALS: BP 149/90; PULSE 97; RESP 17; O2SAT 97
== END 2018-07-07 13:50 | disposition home or self-care (01) ==
PROVIDERS: Emergency Provider Emergency Medicine
DX: R07.9 Chest pain, unspecified (principal); I10 Essential (primary) hypertension; G71.09 Other specified muscular dystrophies; E78.00 Pure hypercholesterolemia, unspecified; Z99.11 Dependence on respirator [ventilator] status; I49.5 Sick sinus syndrome
CPT/HCPCS: 80048; 85025; 93005; 99285; A4216

== ENCOUNTER 2018-07-10 11:02 | Emergency (ER) | payer OTHER, MEDICAID, SELFPAY ==
[2018-07-10] VITALS (7 sets, daily range): BP systolic 132–182; BP diastolic 74–94; PULSE 86–993; RESP 16–20; TEMP 36.7; O2SAT 96–100; BMI 30.7
--- NOTE | 2018-07-10 11:44 | EKG12_ITS ---
Test Reason : CP Blood Pressure : / mmHG Vent. Rate : 087 BPM Atrial Rate : 087 BPM P-R Int : 174 ms QRS Dur : 170 ms QT Int : 430 ms P-R-T Axes : 037 252 052 degrees QTc Int : 517 ms Atrial-sensed ventricular-paced rhythm Abnormal ECG Confirmed by CHARITY JOHNSON, RAMÓN ([id number]), visual effects editor BRANDY ROSENBERG ([id number]) on 07/14/2018 9:13:59 AM Referred By: GRICEL Confirmed By:RAMÓN NASH MD
--- NOTE | 2018-07-10 11:46 | RAD_ITS ---
STUDY: X-RAY CHEST REASON FOR EXAM: Male, 58 years old. 2 day history of intermittent chest pain. Patient has a history of muscular dystrophy and tracheostomy TECHNIQUE: Single AP portable view of the chest. COMPARISON: Comparison is made with prior study dated May 31, 2017. FINDINGS: A tracheostomy is seen. The tip is at 5.8 sinus approximately terrence. EKG electrodes are present. Limited inspiratory effort. Mild increased markings at the left lung base suggestive of left basilar atelectasis. Blunting of the left costophrenic angle. Normal size heart. A left-sided dual-chamber pacemaker is seen. Normal mediastinum and julissa. Normal visualized pulmonary arteries. Normal visualized aortic arch and descending thoracic aorta. Normal visualized thoracic spine. Normal visualized ribs, clavicles, and shoulders. There is no demonstrated abnormality of the visualized soft tissue structures of the upper abdomen. RAD/Chest 1 View (Portable) IMPRESSION: Mild increased markings at the left lung base suggestive of left basilar atelectasis with blunting of the left costophrenic angle. Electronically Signed: Mikey Angeles, at 12:41 EST , Service support ,
--- NOTE | 2018-07-10 11:51 | ED.VIS.GEN ---
History of Present Illness Chief Complaint: Chest Pain Informant: Patient, Family Onset: Days - 2-3 Context: Sudden Onset - Often wakes up with it Timing: Intermittent Quality: Sharp, nonpleuritic, aching Location: Left chest without radiation Current Severity: Moderate Maximum Severity: Moderate Relieved by: Sometimes by sitting up, but not this morning Associated Symptoms: Tingling left upper extremity. No dyspnea. Palpitations. Narrative: Patient is bedridden, due to muscular dystrophy. He was seen here Friday and discharged home after a negative workup for chest discomfort. Today it is worse and similar. He has tingling in his left upper extremity. He has a pacemaker from bradycardia and a history of cardio myopathy, he has no defibrillator, he has never had known coronary disease that he knows of. No history of stents. Takes baby aspirin a day and took it this morning. Palpitations feels like his heart pounding, occurs intermittently, he is feeling a little lightheaded but no near-syncope or syncopal episodes. No recent illness, he has a chronic cough and occasionally coughs up phlegm, he has a chronic tracheostomy after he had a bad episode of pneumonia, he states his cough is no worse and his phlegm is clear without changes in color or blood. No fevers. - Past Medical History (1) MRSA (methicillin resistant 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) colonization Status: Chronic (2) Pseudomonas pneumonia Status: Resolved (3) Chronic hypoxemic respiratory failure Status: Chronic (4) Complete heart block Status: Resolved (5) Dilated cardiomyopathy Status: Chronic (6) HTN (hypertension) Status: Chronic (7) Hereditary progressive muscular dystrophy Status: Chronic (8) History of urinary calculi Status: Chronic (9) Irritable bowel syndrome Status: Chronic (10) Presence of cardiac pacemaker Status: Chronic Past Medical History - Allergies and Home Meds Allergies/Adverse Reactions: Allergies No Known Allergies Allergy (Verified 07/10/18 11:05) Primary Care Physician: Madhavi Ann,Out of [Primary Care Provider] - Surgical History: noncontributory, - Lives: Spouse/ Significant Other Smoking Status: Never smoker - Family History Maternal Family History: Family History (Last Reviewed 03/05/18 @ 07:09 by Sherrie Vieira) Mother Heart disease Myocardial infarction Father Thyroid cancer Sister Thyroid cancer Family History: Reports: No pertinent history Paternal Family History: Family History (Last Reviewed 03/05/18 @ 07:09 by Sherrie Vieira) Mother Heart disease Myocardial infarction Father Thyroid cancer Sister Thyroid cancer Family History: Reports: No pertinent history Review of Systems General: Denies: Chills, Fever, Sweats Eyes: Denies: Visual changes - bilaterally, Diplopia ENT: Reports: Left ear pain - Intermittent, not associated with chest pain necessarily. Denies: Rhinorrhea, Sore throat Cardiovascular: Reports: Chest pain, Palpitations. Denies: Heart racing Respiratory: Reports: Cough, Sputum. Denies: Dyspnea, Dyspnea on exertion Gastrointestinal: Denies: Abdominal pain, Nausea, Vomiting, Diarrhea, Melena, Hematochezia Genitourinary: Denies: Dysuria, Hematuria, Frequency Musculoskeletal: Reports: Swelling - Bilateral lower extremity, chronic. Denies: Back pain, Extremity Pain Skin: Denies: Rash, Wounds Neurological: Reports: Weakness. Denies: Headache, Numbness Physical Exam Vital Signs/Narrative: Vital Signs Temp Pulse Resp BP Pulse Ox 07/10/18 11:05 98.1 F 86 16 182/91 H 96 Inital Vital Signs reviewed: Yes General: Well nourished, Well developed, No Acute Distress Head: Normocephalic, Atraumatic Eyes: Perrl, EOMI ENT: Moist mucous membranes, No rhinorrhea Neck: Supple, Nontender, - - Tracheostomy site benign, no significant mucus production, tracheostomy patent Cardiovascular: Regular rate, Regular rhythm, No murmurs Respiratory: No distress, CTA bilaterally, Chest nontender Abdomen: Soft, Nontender, Nondistended, Normal bowel sounds Back: Nontender, Normal Inspection Extremities: Nontender, Edema - 3+ bilateral lower extremity, symmetric. Negative for: Calf Tenderness Skin: Normal color, No rash Neurological: Alert, Oriented x3, Cranial nerves II-XII grossly intact, Normal Sensation, Weakness - Both legs mostly Psychological: Normal affect, Normal Mood Diagnostic/Tx/Re-eval Impressions Chest X-Ray 07/10/18 11:46 IMPRESSION: Mild increased markings at the left lung base suggestive of left basilar atelectasis with blunting of the left costophrenic angle. Electronically Signed: Mikey Angeles, at 12:41 EST , Service support , 07/10/18 11:46 Chest 1 View (Portable) [RAD] Stat Laboratory Tests 07/10/18 07/10/18 07/10/18 Range/Units 15:30 12:37 12:37 WBC 6.9 (4.4-11.0) K/mm3 RBC 5.38 (4.6-6.2) M/mm3 Hgb 14.4 (13.0-16.5) g/dl Hct 45.3 (40-54) % MCV 84.2 (80-94) fL MCH 26.8 L (27.0-32.0) pg MCHC 31.8 L (32-36) g/gl RDW 16.3 H (11.6-14.6) % RDW Differential 49.8 H (35.1-43.9) fl Plt Count 286 (150-450) K/mm3 MPV 9.3 (6.2-12.0) fl Immature Gran % (Auto) 0.100 (0.0-0.9) % Neut % (Auto) 73.2 H (47-70) % Lymph % (Auto) 16.7 L (19-41) % [place] % (Auto) 9.0 (0-10) % Eos % (Auto) 0.6 (0-5) % Baso % (Auto) 0.4 (0-1) % Absolute Neuts (auto) 5.0 (2.0-7.7) X10^3/uL Absolute Lymphs (auto) 1.15 (0.83-4.51) X10^3/ul Total Counted Not Reportable Sodium 138 (136-145) mmol/L Potassium 3.9 (3.5-5.1) mmol/L Chloride 105 (98-107) mmol/L Carbon Dioxide 27.0 (21.0-32.0) mmol/L Anion Gap 6 (5-15) BUN 11 (7-18) mg/dL Creatinine 0.23 L (0.70-1.30) mg/dL Estim Creat Clear Calc 350.08 ml/min Est GFR (MDRD) Af Amer 530 (>60) mL/min Est GFR (MDRD) Non-Af 438 (>60) mL/min BUN/Creatinine Ratio 47.2 H (10-20) RATIO Glucose 117 H (74-106) mg/dL Calcium 9.3 (8.5-10.1) mg/dL Troponin I < 0.015 < 0.015 (<0.045) ng/mL - Rhythm Strip Rhythm Strip: paced Rate: 85 Ectopy: None - EKG Initial EKG Interpretation: No Acute Injury Pattern, Paced, Non-Specific ST Changes Prior: Unchanged - Medical Decision Making Labs and chest x-ray showed nothing acute, his cardiac enzymes are negative. He has no pleuritic discomfort and I do not think he has pulmonary embolus. Furthermore, he was recently admitted for the same discomfort 1.5 months ago and had a negative d-dimer and negative serial cardiac enzymes. His EKG shows a paced rhythm and is unremarkable. He states he refuses to undergo repeat stress testing. I discussed with Dr. Lopez since this is his second visit this week for this, he agrees with performing a delta troponin and discharging him to follow-up as an outpatient if it is negative, which indeed it was. Patient on reevaluation states that he is still feeling his heart pounding. He no longer feels lightheaded. I gave him Cardizem 15 mg, which slowed him down to around 80 from high 90s, which made it more evident that he was not having a dysrhythmia, he appears to be in a sinus rhythm with ventricular pacing capture. He very rarely has his own ute mountain beat. He is amenable with discharge home, which I think is reasonable as well along with close outpatient follow-up. ED Disposition - Plan for ED Patient: Disposition: Home or Assisted Living Diagnosis: Chest pain, unspecified Instructions: ED Chest Pain Atypical Unkn Cause Referrals: Dino Lopez MD [STAFF PHYSICIAN] - 5-7 Days (call for appt next week)
[2018-07-10] MEDS: Aspirin 81 MG TAB.CHEW 162 MG PO (12:32)
[2018-07-10 12:47] LABS: Absolute Lymphocyte Count 1.15 X10^3/ul (0.83-4.51); Basophil# 0.03 X10^3/uL; Basophil% 0.4 % (0-1); Eosinophil# 0.04 X10^3/uL; Eosinophils% 0.6 % (0-5); Hematocrit 45.3 % (40-54); Hemoglobin 14.4 g/dl (13.0-16.5); Lymphocyte # 1.15 X10^3/ul (4.0); Lymphocyte % 16.7 % (19-41); Mean Corp Hgb Conc 31.8 g/gl (32-36); Mean Corpuscular Hgb 26.8 pg (27.0-32.0); Mean Corpuscular Volume 84.2 fL (80-94); Mean Platelet Vol. 9.3 fl (6.2-12.0); Monocyte# 0.62 X10^3/uL; Neutrophil # 5.03 X10^3/uL (2.7-7.7); Neutrophil % 73.2 % (47-70); Platelet Count 286 K/mm3 (150-450); RBC Distribution Width CV 16.3 % (11.6-14.6); RBC Distribution Width SD 49.8 fl (35.1-43.9); Red Blood Count 5.38 M/mm3 (4.6-6.2); White Blood Count 6.9 K/mm3 (4.4-11.0)
[2018-07-10 12:49] LABS: POSITIVE COUNT NO; POSITIVE DIFFERENTIAL NO; POSITIVE MORPHOLOGY NO
[2018-07-10 13:00] LABS: Anion Gap 6 (5-15); BUN 11 mg/dL (7-18); BUN/Creat Ratio 47.2 RATIO (10-20); Calcium,Total 9.3 mg/dL (8.5-10.1); Chloride 105 mmol/L (98-107); Creatinine, Serum 0.23 mg/dL (0.70-1.30); EST Glomerular Filtration Rate 438 mL/min (>60); Est Glom Filt Rate - Afr Amer 530 mL/min (>60); Estimated Creatinine Clearance 350.08 ml/min; Glucose 117 mg/dL (74-106); Potassium 3.9 mmol/L (3.5-5.1); Sodium Level 138 mmol/L (136-145)
--- NOTE | 2018-07-10 17:49 | ED.RN ---
THIS RN ASKED ABOUT REASON FOR CARDIZEM ORDER. PER DR. BUSTAMANTE TO BE GIVEN FPOR POUNDING IN PT CHEST. 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 PT REPORTS CONTINUED POUNDING.
[2018-07-10] MEDS: dilTIAZem 25 MG/5 ML Vial 15 MG IV BOLUS (17:50)
== END 2018-07-10 18:50 | disposition home or self-care (01) ==
PROVIDERS: Emergency Provider Emergency Medicine
DX: R07.9 Chest pain, unspecified (principal); R05 Cough; J96.11 Chronic respiratory failure with hypoxia; I42.0 Dilated cardiomyopathy; I10 Essential (primary) hypertension; G71.09 Other specified muscular dystrophies; K58.9 Irritable bowel syndrome, unspecified; Z87.442 Personal history of urinary calculi; Z93.0 Tracheostomy status; Z95.0 Presence of cardiac pacemaker; Z86.14 Personal history of Methicillin resistant 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 infection; Z74.01 Bed confinement status
CPT/HCPCS: 36415; 71045; 80048; 84484; 85025; 93005; 99285; A4216

== ENCOUNTER → 2018-07-30 12:57 | Outpatient (CLI) | payer OTHER, MEDICAID, SELFPAY ==
[2018-07-16 14:27] VITALS: BMI 30.7
--- NOTE | 2018-07-30 13:01 | ECHOCS_ITS ---
Reason For Study: SOB Procedure This was a 2D Doppler, Color Flow transthoracic echocardiogram. The study was technically difficult. Patient was scanned in his wheelchair. Contrast injection was performed. Exam performed in department. Left Ventricle Based upon the 2D echocardiographic and contrast enhanced images obtained there appears to be grossly normal left ventricular wall motion and systolic function. Paradoxical septal wall motion c/w an underlying IVCD / electronic ventricular pacemaker. The estimated ejection fraction is 55 %. Transmitral doppler flow suggestive of impaired relaxation of left ventricle. Right Ventricle Based upon the 2D echocardiographic and contrast enhanced images obtained there appears to be grossly normal right ventricular size and systolic function. Atria Normal left atrium. The right atrium is not well visualized. No doppler evidence for ASD. Mitral Valve There is no mitral annular calcification. Normal mitral valve. Tricuspid Valve Normal tricuspid valve. Trivial tricuspid valve insufficiency. Unable to estimate RV systolic pressure/pulmonary artery pressure due to technically difficult study. Aortic Valve Trisinus/trileaflet aortic valve. Normal aortic valve. Pulmonic Valve The pulmonic valve is not well visualized. Trivial pulmonic valve insufficiency. Great Vessels The aortic root is not well visualized. Pericardium/Pleural No pericardial effusion. Medication 22 gauge I.V. with prn adaptor inserted into right arm. Diluted definity 4ml given slow IV push to enhance endocardial definition. MMode/2D Measurements & Calculations LVIDd: 3.8 cm IVSd: 1.2 cm Ao root diam: 3.2 cm LVIDs: 2.3 cm LVPWd: 0.92 cm FS: 40.6 % LA dimension(2D): 2.3 cm Doppler Measurements & Calculations MV E max josé: 62.7 cm/sec Lat Peak E' José: 9.6 cm/sec Med Peak E' José: 7.0 cm/sec MV A max josé: 81.4 cm/sec E/E' lat: 6.6 E/E' med: 9.0 MV E/A: 0.77 Ao V2 max: 79.7 cm/sec LV V1 max: 74.7 cm/sec PA V2 max: 73.1 cm/sec Ao max P.5 mmHg LV V1 max P.2 mmHg Interpretation Summary The study was technically difficult. Contrast injection was performed. Based upon the 2D echocardiographic and contrast enhanced images obtained there appears to be grossly normal left ventricular wall motion and systolic function. Paradoxical septal wall motion c/w an underlying IVCD / electronic ventricular pacemaker. The estimated ejection fraction is 55 %. Trivial tricuspid valve insufficiency. Trivial pulmonic valve insufficiency. Unable to estimate RV systolic pressure/pulmonary artery pressure due to technically difficult study. Transmitral doppler flow suggestive of impaired relaxation of left ventricle Ordering Physician: Mattie Lea/Dino Lopez Referring Physician: OTD Performed By: Ekaterina Ga RDCS
== END ==
PROVIDERS: Referring Provider Physician Assistant Medical; Visit Provider Physician Assistant Medical
DX: I42.9 Cardiomyopathy, unspecified (principal); R06.02 Shortness of breath
CPT/HCPCS: 93225; 93226; 93306; Q9957; A4216; C8929

== ENCOUNTER 2018-10-16 12:21 | Emergency (ER) | payer OTHER, MEDICAID, SELFPAY ==
[2018-07-16 14:27] VITALS: BMI 30.7
[2018-10-16 12:22] VITALS: BP 160/91; PULSE 100; RESP 18; TEMP 36.2; O2SAT 100; BMI 30.7
--- NOTE | 2018-10-16 12:41 | CT_ITS ---
STUDY: CTA OF THE BRAIN REASON FOR EXAM: Male, 58 years old. One-month history of headaches. RADIATION DOSAGE (If Supplied By Facility): CTDIvol = ( 26.98 ) mGy, DLP = ( 1294.88 ) mGycm TECHNIQUE: CT angiography was performed with a multi-detector CT scanner. Data acquisition was obtained from the skull base through the vertex following intravenous administration of 100 IV Isovue 370. MIP images were reconstructed from the axial data set. Post-processing of the angiographic images was performed, with multiplanar reformation and 3D reconstruction. Individualized dose optimization techniques were used for this CT. COMPARISON: None. FINDINGS: Normal bilateral petrous carotid arteries. Normal right cavernous carotid artery with a normal supraclinoid bifurcation. Normal left cavernous carotid artery with a normal supraclinoid bifurcation. Normal right A1 segments of the anterior cerebral artery. Normal left A1 segments of the anterior cerebral artery. Normal intact anterior communicating artery (ACOM). Normal bilateral A2 segments of the anterior cerebral arteries. Normal right M1 and M2 segments of the middle cerebral arteries, with a normal M1 bifurcation. Normal left M1 and M2 segments of the middle cerebral arteries, with a normal M1 bifurcation. Normal right posterior communicating artery (PCOM). Normal left posterior communicating artery (PCOM). Normal bilateral vertebral arteries. Normal basilar artery with a normal basilar bifurcation. The visualized bilateral superior cerebellar (SCA) arteries are normal. Normal bilateral P1, P2 and visualized P3 segments of the posterior cerebral arteries. There is no demonstrated aneurysm of the [place]. There is no demonstrated abnormality of the visualized brain. CT/CTA Head W/WO Contrast IMPRESSION: Normal [place] without a demonstrated aneurysm or hemodynamically significant stenosis. Electronically Signed: Mikey Angeles, at 15:05 EDT , Service support ,
[2018-10-16] MEDS: Morphine 4 MG/ML Syringe IV (12:54)
[2018-10-16] MEDS: 0.9% Normal Saline 1,000 ML 150 ML IV (12:54)
[2018-10-16] MEDS: Ondansetron 4 MG/2 ML Vial IV (12:54)
[2018-10-16 13:12] LABS: Absolute Lymphocyte Count 1.24 X10^3/ul (0.83-4.51); Absolute Neutrophil Count 5.4 X10^3/uL (2.0-7.7); Basophil# 0.02 X10^3/uL; Basophil% 0.3 % (0-1); Eosinophil# 0.02 X10^3/uL; Eosinophils% 0.3 % (0-5); Hematocrit 42.3 % (40-54); Hemoglobin 14.2 g/dl (13.0-16.5); Lymphocyte # 1.24 X10^3/ul (4.0); Lymphocyte % 17.4 % (19-41); Mean Corp Hgb Conc 33.6 g/gl (32-36); Mean Corpuscular Hgb 28.6 pg (27.0-32.0); Mean Corpuscular Volume 85.3 fL (80-94); Monocyte# 0.48 X10^3/uL; Monocyte% 6.7 % (0-10); Neutrophil # 5.37 X10^3/uL (2.7-7.7); Neutrophil % 75.2 % (47-70); Platelet Count 249 K/mm3 (150-450); RBC Distribution Width CV 15.3 % (11.6-14.6); RBC Distribution Width SD 47.6 fl (35.1-43.9); Red Blood Count 4.96 M/mm3 (4.6-6.2); White Blood Count 7.1 K/mm3 (4.4-11.0)
[2018-10-16 13:15] LABS: POSITIVE COUNT NO; POSITIVE DIFFERENTIAL NO; POSITIVE MORPHOLOGY NO
[2018-10-16 13:18] LABS: Erythrocyte Sedimentation Rate 52 mm/hr (0-20)
[2018-10-16 13:26] LABS: Anion Gap 5 (5-15); BUN 14 mg/dL (7-18); BUN/Creat Ratio 54.5 RATIO (10-20); Calcium,Total 9.6 mg/dL (8.5-10.1); Chloride 103 mmol/L (98-107); Creatinine, Serum 0.26 mg/dL (0.70-1.30); EST Glomerular Filtration Rate 391 mL/min (>60); Est Glom Filt Rate - Afr Amer 473 mL/min (>60); Estimated Creatinine Clearance 309.69 ml/min; Glucose 103 mg/dL (74-106); Potassium 3.9 mmol/L (3.5-5.1); Sodium Level 134 mmol/L (136-145)
--- NOTE | 2018-10-16 14:06 | ED.VISSUMM ---
- ER Visit Summary Date of Service: 10/16/18 Chief Complaint: [] History of Present Illness: The patient is a 58 M [headache presents to the emergency department with a headache that started 1 month ago. Patient states the headache came on gradually and initially was intermittent. Patient rates his headache as an 8 out of 10 currently. Patient states the pain is continuous now. Patient states initially it started as a pressure behind his right eye and now involves the right side of the head and describes it as throbbing. He denies any photophobia. Has had no nausea or vomiting. He denies any falls or head injuries. He denies recent illness. Patient does have history of muscular dystrophy and hypertension.] Patient is wheelchair-bound. Patient has tracheostomy. Physical Examination: [HEENT-PERRLA, EOMI. Cranial nerves II through XII grossly intact. TMs clear. Mucous membranes moist. No adenopathy. Cardiovascular-regular rate and rhythm without murmur or ectopy Lungs-clear to auscultation, chest wall stable without crepitus or subcu emphysema Abdomen-normoactive bowel sounds, soft, nontender, no rebound or rigidity, no peritoneal signs. Extremities-intact ?4, normal range of motion, normal pulses, atraumatic] Test Results: [CBC with differential 7.1, hemoglobin 14, platelets 249. Chemistries unremarkable. Sed rate was elevated 52. CTA of the brain was normal.] Emergency Department Course and Treatment: [Patient was given 4 mg morphine and 4 mg of Zofran and had some pain relief with that. Case was discussed with Dr. Lex Zamora of neurology who asked that we start patient on some prednisone as well as Depakote and he can see him as an outpatient. At this point it is unclear the etiology of his headache and certainly considering temporal arteritis is possible etiology although this is not definitive. Patient may need further work-up and evaluation such as possibly temporal artery biopsy and follow-up with neurology.] Treatment Plan: [Follow-up with neurology. Patient will be started on prednisone and Depakote. Disposition: [Discharged home in stable condition] Impression: [Nausea-etiology uncertain] This note was generated with [employer] software. It may contain incorrect words, spelling, and punctuation that were not noted in review of the chart prior to signing ED Disposition - Plan for ED Patient: Referrals: [facility] Doctor,Out of [Primary Care Provider] -
[2018-10-16 15:17] VITALS: BP 179/88; PULSE 96; RESP 18; O2SAT 99
--- NOTE | 2018-10-16 16:26 | ED.DEP ---
ED Disposition - Plan for ED Patient: Instructions: ED Cephalgia Unspecified Prescriptions: Divalproex Sprinkles [Depakote Sprinkles] 500 mg PO DAILY #80 sprinkle Prednisone 60 mg PO DAILY #15 tab Referrals: [facility] Doctor,Out of [Primary Care Provider] - Lex Zamora MD [STAFF PHYSICIAN] - 5-7 Days
--- NOTE | 2018-10-16 16:32 | DCINST.ED_ITS ---
ED Disposition - Plan for ED Patient: Instructions: ED Cephalgia Unspecified Prescriptions: Divalproex Sprinkles [Depakote Sprinkles] 500 mg PO DAILY #80 sprinkle Prednisone 60 mg PO DAILY #15 tab Referrals: [facility] Doctor,Out of [Primary Care Provider] - Lex Zamora MD [STAFF PHYSICIAN] - 5-7 Days
[2018-10-16] MEDS: predniSONE 20 MG Tablet 60 MG PO (17:03)
[2018-10-16] MEDS: Divalproex Sodium 125 MG SPRINKLE 500 MG PO (17:04)
[2018-10-16 17:09] VITALS: BP 164/77; PULSE 100; PULSE 98; RESP 17; RESP 18; O2SAT 98
== END 2018-10-16 17:32 | disposition home or self-care (01) ==
PROVIDERS: Emergency Provider Emergency Medicine
DX: R11.0 Nausea (principal); R51 Headache; I10 Essential (primary) hypertension; G71.00 Muscular dystrophy, unspecified; Z99.3 Dependence on wheelchair; Z93.0 Tracheostomy status
CPT/HCPCS: 70496; 80048; 85025; 85652; 99283; J7030; Q9967; A4216; J2405

== ENCOUNTER → 2018-12-11 15:58 | Outpatient (CLI) | payer OTHER, MEDICAID, SELFPAY ==
[2018-11-27 11:12] VITALS: BMI 30.7
[2018-12-11 17:43] LABS: Erythrocyte Sedimentation Rate 45 mm/hr (0-20)
== END ==
PROVIDERS: Family Provider Psychiatry & Neurology Neurology; PCP Psychiatry & Neurology Neurology; Referring Provider Psychiatry & Neurology Neurology; Visit Provider Psychiatry & Neurology Neurology
DX: R51 Headache (principal)
CPT/HCPCS: 36415; 85652; 86140

== ENCOUNTER → 2018-12-15 09:57 | Outpatient (CLI) | payer OTHER, MEDICAID, SELFPAY ==
[2018-11-27 11:12] VITALS: BMI 30.7
[2018-12-15 12:23] LABS: Glucose, Dipstick Normal (Normal); Ketone-Dipstick 50 mg/dl (Negative); Leukocyte Esterase-Dipstick 25 /ul (Negative); Nitrite-Dipstick Positive (Negative); Occult Blood-Urine 10 /ul (Negative); Protein-Dipstick 30 mg/dl (Negative); Specific Gravity, Urine 1.015 (1.002-1.030); Urine Clarity Sl. Cloudy (Clear); Urine Urobilinogen 12 mg/dl (Normal); Urine pH 6.5 (5.0 - 8.0)
[2018-12-15 12:25] LABS: Color, Urine SEE COMMENT BELOW (Yellow); Urine Bilirubin Dipstick 3 mg/dL (Negative)
== END ==
PROVIDERS: Visit Provider Internal Medicine
DX: R30.0 Dysuria (principal); R33.9 Retention of urine, unspecified
CPT/HCPCS: 81002; 87077; 87086; 87088

== ENCOUNTER → 2018-12-28 17:37 | Outpatient (CLI) | payer OTHER, MEDICAID, SELFPAY ==
[2018-11-27 11:12] VITALS: BMI 30.7
--- NOTE | 2018-12-28 17:45 | CT_ITS ---
STUDY: CT BRAIN WITHOUT CONTRAST REASON FOR EXAM: Male, 58 years old. RADIATION DOSAGE (If Supplied By Facility): CTDIvol = ( 44.99 ) mGy, DLP = ( 846.73 ) mGycm TECHNIQUE: Transaxial CT imaging of the brain was performed without administration of intravenous contrast material. Individualized dose optimization techniques were used for this CT. COMPARISON: October 16, 2018 FINDINGS: Normal soft tissue structures. Normal calvarium. Normal size ventricles and extra-axial spaces for the patient's age. Normal white matter tracts of the cerebral hemispheres. Normal basal ganglia and thalami. Normal brainstem. Normal cerebellum. There is no intracranial hemorrhage. There are no findings of an acute ischemic infarction. Normal visualized paranasal sinuses. CT/Brain/Head without Contrast IMPRESSION: Normal unenhanced CT scan of the brain. Electronically Signed: Usman Najera DO at 18:58 EDT Tel [phone], Service support ,
== END ==
PROVIDERS: Referring Provider Psychiatry & Neurology Neurology; Visit Provider Psychiatry & Neurology Neurology
DX: R51 Headache (principal)
CPT/HCPCS: 70450

== ENCOUNTER → 2019-03-22 16:06 | Outpatient (CLI) | payer OTHER, MEDICAID, SELFPAY ==
[2019-03-11 08:43] VITALS: BMI 30.7
--- NOTE | 2019-03-22 16:09 | CT_ITS ---
STUDY: CT ABDOMEN AND PELVIS WITHOUT CONTRAST REASON FOR EXAM: Male, 58 years old. Gross hematuria RADIATION DOSAGE (If Supplied By Facility): CTDIvol = ( 21.50 ) mGy, DLP = ( 1224.90 ) mGycm TECHNIQUE: Transaxial images were obtained from the dome of the diaphragm to the symphysis pubis without oral contrast, and without intravenous contrast. Sagittal and coronal images were reconstructed. Individualized dose optimization techniques were used for this CT. COMPARISON: None. FINDINGS: This is a limited non-IV and nonoral contrast study. There is a cardiac pacemaker. There is gastrostomy catheter. The exam is limited due to motion artifact. There is mild linear bibasilar hypoventilatory changes, subsegmental atelectasis. The visualized portions of the heart are within normal limits. Normal liver. Normal gallbladder and extrahepatic biliary system. Normal spleen. Normal pancreas. Normal bilateral adrenal glands. There are multiple left renal calculi largest measuring 5 mm. Largest right renal calculus is 3 mm. No hydronephrosis or ureteral calculi. No renal lesions. Normal visualized stomach. Normal small intestine. Normal colon. The appendix is visualized and appears normal. Normal abdominal aorta. Normal inferior vena cava. Normal retroperitoneum. Normal urinary bladder. Normal abdominal wall. Normal osseous structures. CT/Abdomen/Pelvis without Cont IMPRESSION: Bilateral renal calculi, no hydronephrosis and no ureteral calculi. No renal lesions are identified however evaluation is limited due to lack of IV contrast. If hematuria is persistent a CT multiphase study would be recommended. The bladder also appears unremarkable however evaluation is also limited due to the lack of intravenous contrast. Cardiac pacemaker Gastrostomy catheter Electronically Signed: Frank Franz, at 7:43 EST Tel , Service support ,
--- NOTE | 2019-03-22 16:46 | NURSING ---
IV ATTEMPTS X4, TWO USING ACCUVEIN UNSUCCESSFUL.
== END ==
DX: R31.0 Gross hematuria (principal)
CPT/HCPCS: 74176

== ENCOUNTER → 2020-05-23 09:23 | Outpatient (CLI) | payer OTHER, MEDICAID, SELFPAY ==
[2020-01-31 15:27] VITALS: BMI 30.7
[2020-05-23 15:18] LABS: Color, Urine Yellow (Yellow); Glucose, Dipstick Normal (Normal); Ketone-Dipstick 5 mg/dl (Negative); Leukocyte Esterase-Dipstick Negative /ul (Negative); Nitrite-Dipstick Negative (Negative); Occult Blood-Urine Negative /ul (Negative); Protein-Dipstick Negative (Negative); Specific Gravity, Urine 1.015 (1.002-1.030); Urine Bilirubin Dipstick Negative (Negative); Urine Clarity Sl. Cloudy (Clear); Urine Urobilinogen 1 mg/dl (Normal)
== END ==
DX: N39.0 Urinary tract infection, site not specified (principal)
CPT/HCPCS: 81002; 87086

== ENCOUNTER → 2020-07-26 14:02 | Outpatient (CLI) | payer OTHER, MEDICAID, SELFPAY ==
[2020-01-31 15:27] VITALS: BMI 30.7
--- NOTE | 2020-07-26 14:07 | CT_ITS ---
STUDY: CT BRAIN WITHOUT CONTRAST REASON FOR EXAM: Male, 60 years old. FACIAL ASYMMETRY RADIATION DOSAGE (If Supplied By Facility): CTDIvol = ( 44.99 ) mGy, DLP = ( 880.47 ) mGycm TECHNIQUE: Transaxial CT imaging of the brain was performed without administration of intravenous contrast material. Individualized dose optimization techniques were used for this CT. COMPARISON: Comparison is made with prior study 12/28/2018. FINDINGS: Normal soft tissue structures. Normal calvarium. There is mild cerebral atrophy with widening of the extra-axial spaces and ventricular dilatation. Normal white matter tracts of the cerebral hemispheres. Normal basal ganglia and thalami. Normal brainstem. Normal cerebellum. There is no intracranial hemorrhage. There are no findings of an acute ischemic infarction. Atherosclerotic calcification of the cavernous portions of the internal carotid arteries bilaterally. Normal visualized paranasal sinuses. CT/Brain/Head without Contrast IMPRESSION: Chronic involutional changes of the brain. Electronically Signed: Mikey Angeles MD at 14:55 EDT , Service support ,
== END ==
PROVIDERS: Referring Provider Psychiatry & Neurology Neurology; Visit Provider Psychiatry & Neurology Neurology
DX: Q67.0 Congenital facial asymmetry (principal)
CPT/HCPCS: 70450

== ENCOUNTER 2020-08-02 12:52 | Outpatient (RCR) | payer OTHER, MEDICAID, SELFPAY ==
[2020-01-31 15:27] VITALS: BMI 30.7
--- NOTE | 2020-08-02 14:06 | HP.PTEVAL ---
Patient's Visit Information DELIA RUIZ is a 60 year old M referred to Physical Therapy by SELVIN HERNANDEZ with a diagnosis of MUSCULAR DYSTROPHY ,TRACHEOSTOMY,DEPENDANCE ON SUPPLEMET 02. Date of Evaluation: 08/02/20 Physical Therapist: Ben Crowley, PT, Cert MDT, OCS - Visit Plan Frequency: 1 VISIT Plan: This patient will benifit from power motorized device due to dependant with transfers,bed moblity,dependant with all ADLS' and self hygine ,dependant with PMD unable to use toggle,flaccid UE/LE no active motion,absent sitting balance unable to use manual w/c , scooter due no use of UE's . Power moblity device will significantly improve the beneficiary ability to main optimal level of function, - Subjective This 60 y/o male presents to physical therapy with w/c evaluation with diagnosis of muscular dystrophy. Patient over the years has progressively declined . Patient is at at w/c level for 25 years . Patient arrived to PT with manual w/c needed to be pushed by therapist .Patient is at home daily in power w/c and unable to manuever rocky stick .Patient is dependant with all ADLS',self -hygine ,bathing,assist with eating,, Patient has nurse 60 hrs a week. Patient uses venilator at night and 02 concentrater. Patient transfers with ceiling lift. Non ambulatory 25 years. Patient is unable to use arms and legs. Denies parathesia/tingling.Patient has walking in shower ,but does sponge bath, Hospital bed ,percussition vest,suction 3 xdayCOMORBITIES: cardiomyopathy,pacemaker,tacheostomy,depression ,IBS,HTN,puemnnia,peg tube uses as needed. SOCAIL: - Objective POSTURE: posterior pelvic tilt,rounded shoulders head foward. NEURO: FLACCID BUE/LE, denies parathesia/tingling. BALANCE: sitting absent. MOBLITY: dependant with w/c mobility manually,and power w/c unable to use rocky stick. BED MOBILITY: supine-sit dependant. TRANSFERS: ceiling lift. MMT: 0/5 BUE/BLE ,hands trace - Goals Goal 1:: Patient will benenifit from PMD Goal Time Frame: 1 VISIT - Rehabilitation Potential Physical Therapy Diagnosis: This patient will benifit from power motorized device due to dependant with transfers,bed moblity,dependant with all ADLS' and self hygine ,dependant with PMD unable to use toggle,flaccid UE/LE no active motion,absent sitting balance unable to use manual w/c , scooter due no use of UE's . Power moblity device will significantly improve the beneficiary ability to main optimal level of function, - Anticipated Interventions Patient/Client Instruction: Educate patient on: Plan of Care For the Purpose of:: Other Other: PMD Thank you for the opportunity to evaluate your patient. For Medicare and Medicare HMO plans, please review the plan of care and approve it. It will need to be FAXED BACK to us at [phone] for Medicare purposes. For Medicare only, by signing this I certify the plan of care. Please let me know if there are questions or concerns regarding this plan of care. Physician Signature: Date:
== END 2020-08-02 19:00 | disposition home or self-care (01) ==
LOC: PT 12:52
DX: G71.00 Muscular dystrophy, unspecified (principal); I10 Essential (primary) hypertension; Z93.0 Tracheostomy status; Z99.81 Dependence on supplemental oxygen
CPT/HCPCS: 97163

== ENCOUNTER → 2020-08-11 13:07 | Outpatient (CLI) | payer OTHER, MEDICAID, SELFPAY ==
[2020-01-31 15:27] VITALS: BMI 30.7
--- NOTE | 2020-08-11 13:10 | CDU_ITS ---
Reason For Study: Carotid calcification noted on brain CT, Headaches Rt. Velocities/BP Lt. Velocities/BP Prox CCA 92/24 cm/sec. Prox CCA 106/30 cm/sec. Mid CCA 94/24 cm/sec. Mid CCA 109/33 cm/sec. Dist CCA 97/23 cm/sec. Dist CCA 117/39 cm/sec. Prox ICA 84/20 cm/sec. Prox ICA 110/30 cm/sec. Mid ICA 100/30 cm/sec. Mid ICA 94/33 cm/sec. Dist ICA 120/45 cm/sec. Dist ICA 129/50 cm/sec. Rt. ICA/CCA = 1.3. Lt. ICA/CCA = 1.2. Prox ECA 110/5 cm/sec. Prox ECA 109/4 cm/sec. Rt. Vert. 75/15 cm/sec. Lt. Vert. 35/11 cm/sec. Right Extracranial There is intimal thickening but no significant atherosclerotic plaque noted in the right common carotid artery. There is intimal thickening but no significant atherosclerotic plaque noted in the right internal carotid artery. There is no significant atherosclerotic plaque noted in the right external carotid artery. Antegrade flow is noted in the right vertebral artery. Left Extracranial There is intimal thickening but no significant atherosclerotic plaque noted in the left common carotid artery. There is intimal thickening but no significant atherosclerotic plaque noted in the left internal carotid artery. There is no significant atherosclerotic plaque noted in the left external carotid artery. Antegrade flow is noted in the left vertebral artery. Procedure Carotid Duplex [id number]. This is a Carotid Duplex examination using B-mode, color flow and specral Doppler. Exam performed in department. VL/Carotid Duplex Ultrasound Interpretation Summary Intimal thickening and <50% stenosis right proximal internal carotid artery <50% stenosis right external carotid artery Intimal thickening and <50% stenosis left proximal internal carotid artery <50% stenosis left external carotid Patent, antegrade vertebrals bilaterally Ordering Physician: Mattie Lea Referring Physician: Mattie Lea Performed By: Keturah Urban, HUGO, RVT
== END ==
PROVIDERS: Referring Provider Physician Assistant Medical; Visit Provider Physician Assistant Medical
DX: I65.29 Occlusion and stenosis of unspecified carotid artery (principal); R51.9 Headache, unspecified
CPT/HCPCS: 93880

== ENCOUNTER → 2020-09-01 10:54 | Outpatient (CLI) | payer OTHER, MEDICAID, SELFPAY ==
[2020-01-31 15:27] VITALS: BMI 30.7
[2020-09-01 15:40] LABS: Color, Urine Yellow (Yellow); Glucose, Dipstick Normal (Normal); Ketone-Dipstick 50 mg/dl (Negative); Leukocyte Esterase-Dipstick Negative /ul (Negative); Nitrite-Dipstick Negative (Negative); Occult Blood-Urine Negative /ul (Negative); Protein-Dipstick Negative (Negative); Urine Bilirubin Dipstick Negative (Negative); Urine Clarity Clear (Clear); Urine Urobilinogen 4 mg/dl (Normal)
== END ==
DX: R39.9 Unspecified symptoms and signs involving the genitourinary system (principal)
CPT/HCPCS: 81002; 87086

== ENCOUNTER → 2020-09-27 14:37 | Outpatient (CLI) | payer OTHER, MEDICAID, SELFPAY ==
[2020-01-31 15:27] VITALS: BMI 30.7
--- NOTE | 2020-09-27 14:45 | RAD_ITS ---
STUDY: X-RAY CHEST REASON FOR EXAM: Male, 60 years old. Productive Cough TECHNIQUE: PA and lateral views of the chest. COMPARISON: 07/10/2018 FINDINGS: Stable tracheostomy tube Lungs are hypoinflated however, lungs are clear. There is no demonstrated pleural abnormality. Stable left chest wall pacing device. Normal size heart. Normal mediastinum and julissa. Normal visualized pulmonary arteries. Normal visualized aortic arch and descending thoracic aorta. Normal visualized thoracic spine. Normal visualized ribs, clavicles, and shoulders. There is no demonstrated abnormality of the visualized soft tissue structures of the upper abdomen. RAD/Chest PA and Lateral IMPRESSION: No acute cardiopulmonary disease Electronically Signed: Alfredo Sprague DO at 3:45 EDT Tel , Service support ,
== END ==
PROVIDERS: Referring Provider Internal Medicine Critical Care Medicine; Visit Provider Internal Medicine Critical Care Medicine
DX: J96.11 Chronic respiratory failure with hypoxia (principal); G71.00 Muscular dystrophy, unspecified
CPT/HCPCS: 71046

== ENCOUNTER → 2020-12-25 16:51 | Outpatient (CLI) | payer OTHER, MEDICAID, SELFPAY ==
[2020-01-31 15:27] VITALS: BMI 30.7
--- NOTE | 2020-12-25 16:54 | CT_ITS ---
STUDY: CT ABDOMEN AND PELVIS WITHOUT CONTRAST REASON FOR EXAM: Male, 60 years old. KIDNEY dual chamber pacemaker is seen. PAIN -- hematuria. HHistory of muscular dystrophy. RADIATION DOSAGE (If Supplied By Facility): CTDIvol = ( 18.94 ) mGy, DLP = ( 1239.89 ) mGycm TECHNIQUE: Transaxial images were obtained from the dome of the diaphragm to the symphysis pubis without oral contrast, and without intravenous contrast. Sagittal and coronal images were reconstructed. Individualized dose optimization techniques were used for this CT. COMPARISON: Comparison is made with prior examination dated 03/22/2019. FINDINGS: Minimal degree of increased linear markings at the lung bases suggestive of atelectasis. A left-sided dual-chamber pacemaker is seen. Coronary artery calcification. Normal liver. Normal gallbladder and extrahepatic biliary system. Normal spleen. Normal pancreas. Normal bilateral adrenal glands. There are 2 adjacent tiny nonobstructing intrarenal calculi in the lower pole calyx of the right kidney. Multiple tiny left nonobstructive intrarenal calculi are seen. The largest measures 3 mm. A PEG tube is seen along the anterior aspect of the body of the stomach. Normal small intestine. Normal colon. The appendix is visualized and appears normal. There is scattered atherosclerotic calcification of the abdominal aorta, without a demonstrated aneurysm. Normal inferior vena cava. Marked atrophy of the psoas muscles bilaterally as well as the posterior spinal musculature in keeping with the patient''s history of a muscular dystrophy. Normal urinary bladder. Normal abdominal wall. There are diffuse degenerative changes of the visualized lumbar spine. Mild levoscoliosis. Straightening of the normal lumbar lordosis. CT/Abdomen/Pelvis without Cont IMPRESSION: Bilateral nonobstructive intrarenal calculi. Electronically Signed: Mikey Angeles MD at 8:52 EDT , Service support ,
--- NOTE | 2020-12-25 17:05 | RAD_ITS ---
STUDY: CT ABDOMEN AND PELVIS WITHOUT CONTRAST REASON FOR EXAM: Male, 60 years old. KIDNEY dual chamber pacemaker is seen. PAIN -- hematuria. HHistory of muscular dystrophy. RADIATION DOSAGE (If Supplied By Facility): CTDIvol = ( 18.94 ) mGy, DLP = ( 1239.89 ) mGycm TECHNIQUE: Transaxial images were obtained from the dome of the diaphragm to the symphysis pubis without oral contrast, and without intravenous contrast. Sagittal and coronal images were reconstructed. Individualized dose optimization techniques were used for this CT. COMPARISON: Comparison is made with prior examination dated 03/22/2019. FINDINGS: Minimal degree of increased linear markings at the lung bases suggestive of atelectasis. A left-sided dual-chamber pacemaker is seen. Coronary artery calcification. Normal liver. Normal gallbladder and extrahepatic biliary system. Normal spleen. Normal pancreas. Normal bilateral adrenal glands. There are 2 adjacent tiny nonobstructing intrarenal calculi in the lower pole calyx of the right kidney. Multiple tiny left nonobstructive intrarenal calculi are seen. The largest measures 3 mm. A PEG tube is seen along the anterior aspect of the body of the stomach. Normal small intestine. Normal colon. The appendix is visualized and appears normal. There is scattered atherosclerotic calcification of the abdominal aorta, without a demonstrated aneurysm. Normal inferior vena cava. Marked atrophy of the psoas muscles bilaterally as well as the posterior spinal musculature in keeping with the patient''s history of a muscular dystrophy. Normal urinary bladder. Normal abdominal wall. There are diffuse degenerative changes of the visualized lumbar spine. Mild levoscoliosis. Straightening of the normal lumbar lordosis. RAD/Abdomen Single View IMPRESSION: Bilateral nonobstructive intrarenal calculi. Electronically Signed: Mikey Angeles MD at 8:52 EDT , Service support ,
[2020-12-25 18:08] LABS: PSA,Total - Annual Screen 0.02 ng/mL (0.00-4.00)
== END ==
PROVIDERS: Referring Provider Urology; Visit Provider Urology
DX: N20.0 Calculus of kidney (principal); R10.9 Unspecified abdominal pain; Z12.5 Encounter for screening for malignant neoplasm of prostate
CPT/HCPCS: 36415; 74018; 74176; 84153; G0103

== ENCOUNTER 2021-02-22 23:30 | Emergency (ER) | payer OTHER, MEDICAID, SELFPAY ==
[2021-02-22 23:37] VITALS: PULSE 92; RESP 16; TEMP 36.4; O2SAT 96; BMI 25.2
--- NOTE | 2021-02-23 | RAD_ITS ---
STUDY: X-RAY CHEST REASON FOR EXAM: Male, 60 years old. Chest pain TECHNIQUE: Portable, upright, AP chest radiograph COMPARISON: 09/27/2020 FINDINGS: Tracheostomy cannula remains. Basilar atelectasis with hypoinflation on this lordotic view Left chest dual-lead cardiac device noted. There is no demonstrated pleural abnormality. Normal size heart. Normal mediastinum and julissa. Normal visualized pulmonary arteries. Normal visualized aortic arch and descending thoracic aorta. Gas distended bowel under the right hemidiaphragm. RAD/Chest 1 View (Portable) IMPRESSION: Bibasilar atelectasis and hypoinflation. Findings compatible with Chilaiditi syndrome. Electronically Signed: Dino Romo MD at 1:16 EDT Tel , Service support ,
[2021-02-23] MEDS: LORazepam 1 MG Tablet PO (00:16)
[2021-02-23 00:18] LABS: Absolute Lymphocyte Count 1.64 X10^3/uL (0.83-4.51); Absolute Neutrophil Count 1.6 X10^3/uL (2.0-7.7); Basophil# 0.02 X10^3/uL; Basophil% 0.5 % (0-1); Eosinophil# 0.06 X10^3/uL; Eosinophils% 1.6 % (0-5); Hematocrit 39.5 % (40-54); Hemoglobin 13.2 g/dL (13.0-16.5); Lymphocyte # 1.64 X10^3/ul (0.83-4.51); Lymphocyte % 43.4 % (19-41); Mean Corp Hgb Conc 33.4 g/dL (32-36); Mean Corpuscular Hgb 31.4 pg (27.0-32.0); Monocyte# 0.41 X10^3/uL; Monocyte% 10.8 % (0-10); NRBC Flagged by Analyzer 0 % (0-5); Neutrophil # 1.64 X10^3/uL (2.7-7.7); Neutrophil % 43.4 % (47-70); POSITIVE COUNT YES; Platelet Count 167 K/mm3 (150-450); RBC Distribution Width CV 13.2 % (11.6-14.6); RBC Distribution Width SD 45.4 fl (35.1-43.9); White Blood Count 3.8 K/mm3 (4.4-11.0)
[2021-02-23 00:23] LABS: Differential Indicated SCAN CRITERIA MET
[2021-02-23 00:55] LABS: Anion Gap 7 (5-15); BUN 5 mg/dL (7-18); BUN/Creat Ratio 23.3 RATIO (10-20); Calcium,Total 9.6 mg/dL (8.5-10.1); Chloride 92 mmol/L (98-107); Creatinine, Serum 0.22 mg/dL (0.70-1.30); EST Glomerular Filtration Rate 476 mL/min (>60); Est Glom Filt Rate - Afr Amer 576 mL/min (>60); Glucose 123 mg/dL (74-106); Potassium 4.3 mmol/L (3.5-5.1); Sodium Level 130 mmol/L (136-145); Troponin-I HS 10 pg/mL (3.0-78.0)
--- NOTE | 2021-02-23 01:27 | EKG12_ITS ---
Test Reason : CP Blood Pressure : / mmHG Vent. Rate : 089 BPM Atrial Rate : 089 BPM P-R Int : 164 ms QRS Dur : 194 ms QT Int : 452 ms P-R-T Axes : 021 256 054 degrees QTc Int : 549 ms Atrial-sensed ventricular-paced rhythm Abnormal ECG Confirmed by HERMILO JOHNSON, [place] ([id number]), editorial project manager LUCIANA GARCIA ([id number]) on 02/28/2021 9:46:22 AM Referred By: SHARON Confirmed By:[place] AKHTAR MD
[2021-02-23 01:31] VITALS: BP 101/66; PULSE 66; RESP 16; O2SAT 96
--- NOTE | 2021-02-23 03:26 | CT_ITS ---
CTA THORAX; CT ABDOMEN/PELVIS INDICATION: Chest pain COMPARISON: None. TECHNIQUE: Helical axial scans were obtained through the abdomen during IV contrast infusion, followed by 100 mL saline flush. MIP reformatted images of both main pulmonary arteries were obtained. CT scan done according to ALARA (As Low As Reasonably Achievable). CONTRAST: 100 mL of ISOVUE (370 mmol/mL) was administered IV with 0 mL discarded. FINDINGS: CTA Pulmonary arteries: No evidence of pulmonary arterial emboli. Thoracic aorta: No aneurysm or dissection. No atherosclerotic calcific plaque noted. CT Tracheostomy cannula is in place. Cardiac device again noted. Lungs and pleura: Scattered groundglass opacities throughout both lungs. Bibasilar subsegmental atelectasis with elevated hemidiaphragms. No significant emphysematous changes. No effusion. Mediastinum and pulmonary julissa: No mass or adenopathy. Heart: Normal heart size. No pericardial effusion. Liver and spleen: Normal size. No mass. Gallbladder: No calcified stones or wall thickening identified. Bile ducts: No biliary dilatation. Pancreas: No mass or enlargement. No pancreatic fluid collections. Adrenals and kidneys: No adrenal masses. Normal renal contours. No cysts. No stones identified. No hydronephrosis. Lymph nodes: No adenopathy. Bowel and mesentery: PEG tube in place. There is a normal appearance of the small bowel. No areas of bowel wall thickening or inflammation are noted. Appendix is normal. Peritoneal cavity: No ascites. Pelvic structures: Substantial distention of the urinary bladder. Body wall: No masses or hernias. Skeletal structures: T11 superior endplate fracture. CT/CTA Chst, Abd, Pel W and/or WO IMPRESSION: Atypical pneumonia with chronic bibasilar atelectasis. No finding of pulmonary embolus. T11 compression deformity of uncertain acuity. Substantial urinary bladder distention. Electronically Signed: Dino Romo MD at 5:56 EDT Tel , Service support ,
--- NOTE | 2021-02-23 03:50 | EDS_ITS ---
HPI History of Present Illness Chief Complaint: Chest Pain Narrative Narrative: Patient is a 60-year-old male with past medical history of quadriplegia and chronic tracheostomy as well as PEG tube placement. He states he has had constant chest discomfort for the past 2 to 3 days. He reports he has had mild cough and states he has had increased sputum production. 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 History of urinary calculi Irritable bowel syndrome Limb weakness MRSA (methicillin resistant 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) colonization Otitis interna Pneumonia Pneumonia Pseudomonas pneumonia Shoulder pain Sick sinus syndrome SOB (shortness of breath) Troponin I above reference range Home Medications sertraline 50 mg PO DAILY 04/17/14 [History Last Taken 07/09/18] cholecalciferol (vitamin D3) 2,000 unit PO DAILY 07/01/14 [History Last Taken 07/10/18] aspirin 81 mg PO DAILY@0800 03/09/15 [History Last Taken 07/10/18] sennosides 1 tab PO BID 03/09/15 [History Last Taken 07/10/18] bacitracin 500 unit/gram topical packet 1 applic TOPICAL Q12H 07/05/17 [History Last Taken Unknown] morphine 30 mg capsule,extended release 24 hr multiphase 30 mg PO BID cap 08/19/17 [History Last Taken 07/10/18] alum-mag hydroxide-simeth 20 ml PO PRN PRN 07/07/18 [History Last Taken Unknown] naproxen sodium 220 mg G-TUBE BID PRN PRN 07/07/18 [History Last Taken Unknown] polyethylene glycol 3350 17 g PO DAILY 07/07/18 [History Last Taken 07/09/18] triamcinolone acetonide 1 spray NASAL DAILY 07/07/18 [History Last Taken 07/09/18] buspirone 30 mg PO BID 07/10/18 [History Last Taken 07/10/18] cetirizine 10 mg PO QHS 07/10/18 [History Last Taken 07/09/18] cyclobenzaprine 10 mg PO BID PRN PRN 07/10/18 [History Last Taken 07/09/18] glycopyrrolate 1.5 mg PO BID 07/10/18 [History Last Taken 07/10/18] hydrocodone-acetaminophen 1 tab PO TID 07/10/18 [History Last Taken 07/10/18] pantoprazole 40 mg PO DAILY 07/10/18 [History Last Taken 07/10/18] simethicone 160 mg PO TID PRN PRN 07/10/18 [History Last Taken 07/08/18] dextromethorphan-guaifenesin 5 mg-100 mg/5 mL oral liquid 10 ml PO Q6H PRN 02/11/20 [History Last Taken Unknown] psyllium husk 3.4 gram/5.4 gram oral powder 1 tsp PO TID g 02/11/20 [History Last Taken Unknown] valproic acid (as sodium salt) 250 mg/5 mL (5 mL) oral solution 250 mg PO .COMPLEX 02/11/20 [History Last Taken Unknown] lisinopril 20 mg tablet 20 mg PO DAILY #90 tab 06/08/20 [Rx Last Taken Unknown] rimegepant 75 mg disintegrating tablet 75 mg PO ONCE PRN 06/08/20 [History Last Taken Unknown] albuterol sulfate 2.5 mg INHALATION Q4H PRN PRN #180 ml 09/27/20 [Rx Last Taken Unknown] albuterol sulfate 90 mcg/actuation aerosol inhaler 2 puff INHALATION Q6H PRN 09/27/20 [History Last Taken Unknown] guaifenesin 200 mg/5 mL oral liquid 200 mg PO Q4H PRN #473 ml 09/27/20 [Rx Last Taken Unknown] doxycycline calcium 10 ml PO BID 10 Days #200 ml 02/23/21 [Rx Last Taken Unknown] Allergy/AdvReac Type Severity Reaction Status Date / Time No Known Allergies Allergy Verified 02/22/21 23:32 Family History Mother Heart disease Myocardial infarction Father Thyroid cancer Myocardial infarction Parkinson disease Sister Thyroid cancer Surgical History Gastrointestinal tube in situ History of hemorrhoidectomy History of release of tendon Presence of cardiac pacemaker Tracheostomy tube present (~2013) Social History Smoking Status: Never smoker second hand exposure: No alcohol intake: never substance use type: does not use caffeine: Yes Type: coffee what type of physical activity do you participate in: none ROS ROS ED Constitutional Constitutional ED: Denies chills or fever(s) ENT ENT ED: Denies sore throat Cardiovascular Cardiovascular: Reports chest pain; Denies palpitations or racing heartbeat Respiratory/Chest Respiratory/Chest: Denies cough or dyspnea Musculoskeletal Musculoskeletal: Denies myalgias Integumentary Denies rash Neurologic Neurologic: Denies headache(s) Hematologic/Lymphatic Hematologic/Lymphatic: Denies easy bleeding or easy bruising EXAM Physical Exam Const Vital Signs: 02/22/21 23:37 02/22/21 23:41 02/23/21 01:31 Temperature 97.6 F L Temperature Source Temporal Pulse Rate 92 66 Respiratory Rate 16 16 Respiratory Effort Normal Non-Labored Blood Pressure 101/66 Blood Pressure Mean 77 Pulse Ox 96 96 Oxygen Delivery Method Room Air Room Air 02/23/21 04:45 Temperature Temperature Source Pulse Rate 89 Respiratory Rate 16 Respiratory Effort Blood Pressure 156/81 H Blood Pressure Mean 106 Pulse Ox Oxygen Delivery Method Positive contractures General Appearance ED: contractures and NAD HEENT HEENT Narrative: Normocephalic atraumatic Eyes PERRL and EOMs intact bilaterally Neck Neck Narrative: Tracheostomy tube in place without secondary soft tissue changes to suggest infection no crepitance palpated Chest Wall palpation of chest normal Chest Narrative: No bony deformity or crepitance Resp Resp Narrative: Sounds are diminished throughout with faint wheeze in the bilateral bases Cardio regular rate and regular rhythm GI GI Narrative: Abdomen is soft and nondistended with hypoactive bowel sounds. No pulsatile mass noted. There is a PEG tube in place without surrounding secondary changes to suggest skin infection Extremity Extremity Narrative: Patient has chronic changes from his quadriplegia without new/acute findings Neuro oriented x3 and CN's II-XII intact bilaterally Sensorium / Orientation: alert Psych Mood & Affect: depressed Skin no rashes or lesions noted MDM MDM MDM Narrative Medical decision making narrative: Patient presented to the ER afebrile and in no acute respiratory distress. He reported constant pain for about 2 to 3 days and therefore I felt the troponin was normal the chances being cardiac was extremely low. Blood work showed that his white blood cell count is diminished at 3.8 when his baseline is typically 6-7. 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 Therefore at this questionable x-ray reading I did elect to perform a CT of his chest abdomen and pelvis. CT of the chest revealed no pulmonary embolus or dissection but did show groundglass opacities consistent with atypical pneumonia. The patient had a Covid swab obtained which was negative. However the groundglass opacities and leukopenia do suggest that this is a false negative. Therefore a PCR test will be obtained. However at this time as the patient does not have any signs of heart damage or need for supplemental oxygen I do not feel he needs to be kept in the hospital and will be discharged home. I will start him on antibiotics in case the PCR test is negative but if it results positive then he can be notified to stop the antibiotic as his pneumonia will be Covid Lab Data Attestation: I reviewed the patient's lab results. Labs: Laboratory Results - last 24 hr 02/23/21 02/23/21 00:10 00:10 WBC 3.8 L RBC 4.20 L Hgb 13.2 Hct 39.5 L MCV 94.0 MCH 31.4 MCHC 33.4 RDW Std Deviation 45.4 H RDW Coeff of Lily 13.2 Plt Count 167 MPV 9.0 Immature Gran % (Auto) 0.300 Neut % (Auto) 43.4 L Lymph % (Auto) 43.4 H [place] % (Auto) 10.8 H Eos % (Auto) 1.6 Baso % (Auto) 0.5 Absolute Neuts (auto) 1.6 L Absolute Lymphs (auto) 1.64 Nucleated RBC % 0 Sodium 130 L Potassium 4.3 Chloride 92 L Carbon Dioxide 31.0 Anion Gap 7 BUN 5 L Creatinine 0.22 L Estim Creat Clear Calc 357.07 Est GFR (MDRD) Af Amer 576 Est GFR (MDRD) Non-Af 476 BUN/Creatinine Ratio 23.3 H Glucose 123 H Calcium 9.6 Troponin I High Sens 10 Radiography Diagnostic Testing: Clinical Impression(s) from Imaging Studies Chest X-Ray 02/23/21 00:00 IMPRESSION: Bibasilar atelectasis and hypoinflation. Findings compatible with Chilaiditi syndrome. Electronically Signed: Dino Romo MD at 1:16 EDT Tel , Service support , Chest/Abdomen/Pelvis CTA 02/23/21 03:26 IMPRESSION: Atypical pneumonia with chronic bibasilar atelectasis. No finding of pulmonary embolus. T11 compression deformity of uncertain acuity. Substantial urinary bladder distention. Electronically Signed: Dino Romo MD at 5:56 EDT Tel , Service support , Discharge Plan Triage Chief Complaint: Chest Pain ED Provider: Albert Wright Dx/Rx/DC Orders Clinical Impression: Atypical pneumonia Instructions: ED Pneumonia (Adult) Prescriptions: New doxycycline calcium 50 mg/5 mL syrup 10 ml PO BID 10 Days Qty: 200 RF: 0 No Action morphine 30 mg capsule, ER multiphase 24 hr 30 mg PO BID RF: 0 bacitracin 500 unit/gram packet 1 applic TOPICAL Q12H RF: 0 valproic acid (as sodium salt) 250 mg/5 mL (5 mL) solution 250 mg PO .COMPLEX RF: 0 Chld Robitussin Cough-Chest DM 5-100 mg/5 mL liquid 10 ml PO Q6H PRNRF: 0 Metamucil 3.4 gram/5.4 gram powder 1 tsp PO TID RF: 0 albuterol sulfate 90 mcg/actuation HFA aerosol inhaler 2 puff inhalation Q6H PRNRF: 0 guaifenesin 200 mg/5 mL liquid 200 mg PO Q4H PRN (Reason: cough) Qty: 473 RF: 6 albuterol sulfate 2.5 mg /3 mL (0.083 %) solution for nebulization 2.5 mg inhalation Q4H PRN PRN (Reason: Sob &/Or Wheezing) Qty: 180 RF: 6 sertraline 50 MG tablet 50 mg PO DAILY RF: 0 cholecalciferol (vitamin D3) 1,000 UNIT tablet 2,000 unit PO DAILY RF: 0 sennosides 1 TABLET tablet 1 tab PO BID RF: 0 aspirin 81 MG tablet,chewable 81 mg PO DAILY@0800 RF: 0 polyethylene glycol 3350 17 GM packet 17 g PO DAILY RF: 0 triamcinolone acetonide 16.9 ML aerosol,spray 1 spray NASAL DAILY RF: 0 alum-mag hydroxide-simeth 30 ML suspension 20 ml PO PRN PRN (Reason: gastric distress) RF: 0 naproxen sodium 220 MG capsule 220 mg G-tube BID PRN PRN (Reason: Pain) RF: 0 glycopyrrolate 1 MG tablet 1.5 mg PO BID RF: 0 cyclobenzaprine 10 MG tablet 10 mg PO BID PRN PRN (Reason: Spasms) RF: 0 cetirizine 10 MG tablet 10 mg PO QHS RF: 0 hydrocodone-acetaminophen 1 EACH tablet 1 tab PO TID RF: 0 buspirone 30 MG tablet 30 mg PO BID RF: 0 simethicone 80 MG tablet 160 mg PO TID PRN PRN (Reason: Gas) RF: 0 pantoprazole 40 MG tablet 40 mg PO DAILY RF: 0 Nurtec ODT 75 mg tablet,disintegrating 75 mg PO ONCE PRNRF: 0 lisinopril 20 mg tablet 20 mg PO DAILY Qty: 90 RF: 3 Primary Care Provider: Ben Guadalupe Referrals: Ben Guadalupe MD [Primary Care Provider] - Disposition Disposition: Home, Self Care
[2021-02-23 04:45] VITALS: BP 156/81; PULSE 89; RESP 16
[2021-02-23] MEDS: Doxycycline 100 MG CAPSULE PO (06:09)
[2021-02-23 06:19] VITALS: BP 114/91; PULSE 94; RESP 16; O2SAT 98
[2021-02-23 06:25] VITALS: BP 134/74; PULSE 78; RESP 17; TEMP 36.4; O2SAT 98
== END 2021-02-23 06:50 | disposition home or self-care (01) ==
PROVIDERS: Emergency Provider Emergency Medicine
DX: J18.9 Pneumonia, unspecified organism (principal); Z93.0 Tracheostomy status; Z87.442 Personal history of urinary calculi
CPT/HCPCS: 71045; 71275; 74174; 80048; 84484; 85025; 87426; 87635; 93005; 99285; J7030; Q9967; U0005; A4216; U0003

== ENCOUNTER 2021-04-04 09:52 | Outpatient (RCR) | payer OTHER, MEDICAID, SELFPAY | END 2021-05-04 23:59 | LOC: WC 09:52 | PROVIDERS: PCP Internal Medicine; Visit Provider Nurse Practitioner | DX: L98.9 Disorder of the skin and subcutaneous tissue, unspecified (principal); I10 Essential (primary) hypertension; M54.9 Dorsalgia, unspecified; G89.29 Other chronic pain; K21.9 Gastro-esophageal reflux disease without esophagitis; Z99.3 Dependence on wheelchair; Z86.14 Personal history of Methicillin resistant 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 infection ==

== ENCOUNTER 2021-04-09 03:21 | Emergency (ER) | payer OTHER, MEDICAID, SELFPAY ==
[2021-04-09] VITALS (8 sets, daily range): BP systolic 108–128; BP diastolic 71–87; PULSE 69–90; RESP 13–19; TEMP 36.2–36.8; O2SAT 95–98; BMI 24.0
--- NOTE | 2021-04-09 03:55 | EKG12_ITS ---
Test Reason : CP Blood Pressure : / mmHG Vent. Rate : 081 BPM Atrial Rate : 081 BPM P-R Int : 172 ms QRS Dur : 198 ms QT Int : 468 ms P-R-T Axes : 012 268 073 degrees QTc Int : 543 ms Atrial-sensed ventricular-paced rhythm Abnormal ECG Confirmed by CHARITY JOHNSON, RAMÓN ([id number]), proposal editor LUCIANA GARCIA ([id number]) on 04/10/2021 10:05:57 AM Referred By: JULIA Confirmed By:RAMÓN NASH MD
--- NOTE | 2021-04-09 03:56 | ED.VIS.DYS ---
HPI History of Present Illness Chief Complaint: Shortness of Breath Informant: patient and spouse/S.O. Onset/Context/Timing Onset: Days Context: gradual Timing: Continuous Current Severity: Mild Maximum Severity: Mild Worsened by: Nothing Relieved by: Nothing Associated Symptoms cough and yellow sputum Chest Pain: Positive for None Narrative Narrative: 60-year-old male history of muscular dystrophy worries bedbound. Hypertension, CHF, cardiomyopathy and pacemaker. Has never had a DVT or PE. He and state that he has had increasing shortness of breath of the last 4 to 5 days. He uses a ventilator at night but has been using it more so during the day. He is also used his percussion vest more today and aerosols. States he is having yellowish phlegm more than his baseline. Denies any fever or chills. No chest pain. He does have body aches and loose stools. He has been on a ventilator since 2013. States he is also having more discomfort with swallowing over the last several weeks and more indigestion. He has a history of reflux. He was treated in the emergency department 6 weeks ago had a negative CTA of his chest at that time. He has also had a history of aspiration in the past. Both he and his were vaccinated against Covid. PE Risk Factors: Negative for Cancer, OCP + Smoking + > 35, Prior DVT or PE, Recent immobilization, Recent surgery and Recent travel Prior similar symptoms: Yes Recent Illness/Hospitalization: No PFSH PFS Medical History Acute respiratory failure Back pain Cardiomyopathy Carotid artery calcification Chest pain Chronic hypoxemic respiratory failure Complete heart block Diarrhea Difficulty balancing Dilated cardiomyopathy Hereditary progressive muscular dystrophy History of urinary calculi Irritable bowel syndrome Limb weakness MRSA (methicillin resistant 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) colonization Muscular dystrophy Otitis interna Pneumonia Pneumonia Pseudomonas pneumonia Shoulder pain Sick sinus syndrome SOB (shortness of breath) Troponin I above reference range Home Medications sertraline 50 mg PO DAILY 04/17/14 [History Last Taken 07/09/18] cholecalciferol (vitamin D3) 2,000 unit PO DAILY 07/01/14 [History Last Taken 07/10/18] aspirin 81 mg PO DAILY@0800 03/09/15 [History Last Taken 07/10/18] sennosides 1 tab PO BID 03/09/15 [History Last Taken 07/10/18] bacitracin 500 unit/gram topical packet 1 applic TOPICAL Q12H 07/05/17 [History Last Taken Unknown] morphine 30 mg capsule,extended release 24 hr multiphase 30 mg PO BID cap 08/19/17 [History Last Taken 07/10/18] alum-mag hydroxide-simeth 20 ml PO PRN PRN 07/07/18 [History Last Taken Unknown] naproxen sodium 220 mg G-TUBE BID PRN PRN 07/07/18 [History Last Taken Unknown] polyethylene glycol 3350 17 g PO DAILY 07/07/18 [History Last Taken 07/09/18] triamcinolone acetonide 1 spray NASAL DAILY 07/07/18 [History Last Taken 07/09/18] buspirone 30 mg PO BID 07/10/18 [History Last Taken 07/10/18] cetirizine [Zyrtec] 10 mg PO QHS 07/10/18 [History Last Taken 07/09/18] cyclobenzaprine 10 mg PO BID PRN PRN 07/10/18 [History Last Taken 07/09/18] glycopyrrolate 1.5 mg PO BID 07/10/18 [History Last Taken 07/10/18] hydrocodone-acetaminophen 1 tab PO TID 07/10/18 [History Last Taken 07/10/18] simethicone 160 mg PO TID PRN PRN 07/10/18 [History Last Taken 07/08/18] dextromethorphan-guaifenesin 5 mg-100 mg/5 mL oral liquid 10 ml PO Q6H PRN 02/11/20 [History Last Taken Unknown] psyllium husk 3.4 gram/5.4 gram oral powder 1 tsp PO TID g 02/11/20 [History Last Taken Unknown] valproic acid (as sodium salt) 250 mg/5 mL (5 mL) oral solution 500 mg PO BID 02/11/20 [History Last Taken Unknown] lisinopril 20 mg tablet 20 mg PO DAILY #90 tab 06/08/20 [Rx Last Taken Unknown] albuterol sulfate 2.5 mg INHALATION Q4H PRN PRN #180 ml 09/27/20 [Rx Last Taken Unknown] guaifenesin 200 mg/5 mL oral liquid 200 mg PO Q4H PRN #473 ml 09/27/20 [Rx Last Taken Unknown] esomeprazole magnesium [Nexium] 40 mg PO DAILY 04/09/21 [History Last Taken Unknown] Allergy/AdvReac Type Severity Reaction Status Date / Time No Known Allergies Allergy Verified 04/09/21 03:25 Family History Mother Heart disease Myocardial infarction Father Thyroid cancer Myocardial infarction Parkinson disease Sister Thyroid cancer Surgical History Gastrointestinal tube in situ History of hemorrhoidectomy History of release of tendon Presence of cardiac pacemaker Tracheostomy tube present (~2013) Social History Smoking Status: Never smoker second hand exposure: No alcohol intake: never substance use type: does not use caffeine: Yes Type: coffee what type of physical activity do you participate in: none ROS ROS ED ROS Narrative Cough, shortness of breath. Body aches. Review of Systems ROS Unobtainable: Denies due to encephalopathy Constitutional Constitutional ED: Denies fever(s) Eyes Eyes: Denies change in vision ENT ENT ED: Denies ear pain Cardiovascular Cardiovascular: Denies chest pain or palpitations Respiratory/Chest Respiratory/Chest: Reports cough, dyspnea and sputum Gastrointestinal Gastrointestinal: Reports diarrhea; Denies abdominal pain, nausea or vomiting Genitourinary Genitourinary ED: Denies dysuria Musculoskeletal Musculoskeletal: Denies myalgias Integumentary Denies rash Neurologic Neurologic: Denies headache(s) Psychiatric Psychiatric: Denies depression Endocrine Endocrinology: Denies polyuria Hematologic/Lymphatic Hematologic/Lymphatic: Denies easy bruising Allergic/Immunologic Allergic/Immunologic ED: Denies urticaria EXAM Physical Exam Narrative Exam Narrative: 60-year-old male vital signs stable currently is 98%. Blood pressure 128/81 is afebrile. He does not look septic or toxic. HEENT exam unremarkable. Moist with membranes. Neck nontender no JVD. No lymphadenopathy. Trach baseline of his neck. Lungs clear to auscultation bilaterally. Shallow respirations. Heart regular rhythm rate about 90. Chest wall nontender. Abdomen soft nontender. Normal bowel sounds no peritoneal signs. No distention. No obstruction. Upper abdominal feeding tube. Extremities he does have limited movement are extremely weak bilaterally from his history of muscular dystrophy. He is able to open close his hands and does mild dorsi and plantar flexion. Calves are nontender without cords. Neurologically is awake. He is alert. He answers questions and follows commands. He has severe generalized muscular weakness in both upper and lower extremities from his muscular dystrophy. Const Vital Signs: 04/09/21 03:21 04/09/21 03:24 04/09/21 04:29 Temperature 97.1 F L 97.1 F L 97.8 F Temperature Source Temporal Temporal Axillary Pulse Rate 90 90 70 Respiratory Rate 18 18 13 Respiratory Effort Respiratory Depth Respiratory Pattern Blood Pressure 128/81 H 128/81 H 116/72 Blood Pressure Mean 96 96 86 Pulse Ox 98 98 95 Oxygen Delivery Method Room Air Room Air Room Air 04/09/21 04:33 04/09/21 04:40 04/09/21 05:20 Temperature 98.2 F Temperature Source Temporal Pulse Rate 74 Respiratory Rate 18 Respiratory Effort Short of Breath Respiratory Depth Normal Respiratory Pattern Normal Blood Pressure 108/71 Blood Pressure Mean 83 Pulse Ox 95 98 Oxygen Delivery Method Room Air Room Air 04/09/21 05:57 Temperature Temperature Source Pulse Rate 71 Respiratory Rate 18 Respiratory Effort Respiratory Depth Respiratory Pattern Blood Pressure 120/87 H Blood Pressure Mean 98 Pulse Ox 97 Oxygen Delivery Method Room Air Positive well nourished and well developed; Negative for obese, cachectic, contractures or unkempt General Appearance ED: well developed and NAD; Negative for unkempt, cachectic or contractures Nutritional Appearance: Negative for cachectic or obese HEENT Reports moist mucous membranes atraumatic; Negative for trauma or tenderness Eyes PERRL and EOMs intact bilaterally Neck no lymphadenopathy, supple, no meningeal signs and no JVD General: Negative for tenderness Resp normal respiratory effort Auscultation: Negative for rales, rhonchi, wheezes or diminished lung sounds Cardio regular rate, regular rhythm, S1 normal heart sound, S2 normal heart sound and no murmurs GI non-tender, non-distended and no masses Auscultation: normoactive bowel sounds Palpation: soft; Negative for tender, guarding or rebound tenderness present Extremity Negative for normal to inspection Extremity Narrative: Both upper and lower extremities are extremely weak which is chronic from his muscular dystrophy. General Extremety ED: Negative for edema or tenderness General Extremity: Negative for edema Neuro oriented x3 and CN's II-XII intact bilaterally Sensorium / Orientation: alert, oriented to person, oriented to place and oriented to time; Negative for confused, lethargic or stuporous Psych mental status grossly normal Appearance: Negative for unkempt Thought Process: normal thought process Skin no wounds Lesions: no lesions Rashes: no rashes MDM MDM MDM Narrative Medical decision making narrative: 60-year-old male 58-year history of muscular dystrophy been on the vent for the last 7 years. With increasing shortness of breath. Differential would include pneumonia, CHF, Covid versus other etiologies. He has never had a DVT or PE is not having any chest pain. Repeat exam patient is doing well resting comfortably. He has good oxygen saturation in the mid to high 90s. He and I and his went over all his test results. He will be discharged home. He requested something for pain will be given IV morphine and Zofran. Lab Data Attestation: I reviewed the patient's lab results. Lab results narrative: CBC shows a white count 4.6. Hemoglobin 12.5. Platelets 184. Chemistry shows sodium 130 gap is 7 normal BUN and creatinine. Glucose 91. Troponin 11 and normal. Similar to prior labs. Patient had a CTA recently and it was unremarkable. Clinically I do not think he has a PE at this time. I do not think he needs an evaluation currently. Labs: Laboratory Results - last 24 hr 04/09/21 04/09/21 04/09/21 03:30 03:30 04:25 WBC 4.6 RBC 3.98 L Hgb 12.5 L Hct 36.2 L MCV 91.0 MCH 31.4 MCHC 34.5 RDW Std Deviation 47.0 H RDW Coeff of Lily 14.2 Plt Count 184 MPV 8.8 Immature Gran % (Auto) 0.200 Neut % (Auto) 44.7 L Lymph % (Auto) 42.8 H Laurens % (Auto) 10.8 H Eos % (Auto) 1.3 Baso % (Auto) 0.2 Absolute Neuts (auto) 2.1 Absolute Lymphs (auto) 1.98 Nucleated RBC % 0 Sodium Cancelled 130 L Potassium Cancelled 3.5 Chloride Cancelled 92 L Carbon Dioxide Cancelled 31.0 Anion Gap Cancelled 7 BUN Cancelled 7 Creatinine Cancelled < 0.15 L Estim Creat Clear Calc Cancelled 523.74 Est GFR (MDRD) Af Amer Cancelled 873 Est GFR (MDRD) Non-Af Cancelled 721 BUN/Creatinine Ratio Cancelled TNP Glucose Cancelled 91 Calcium Cancelled 8.9 Troponin I High Sens Cancelled 11 Radiography Chest X-Ray - ED: 1 View, Read by ED Physician, Normal, Heart, Lungs, Mediastinum, Bony Structures, No Acute Disease and Chronic Changes Diagnostic Testing: Clinical Impression(s) from Imaging Studies Chest X-Ray 04/09/21 04:35 IMPRESSION: 1. Tracheostomy tube and pacemaker in place. 2. Mild chronic left basilar atelectasis or fibrosis. 3. No evidence for acute cardiopulmonary pathology. Electronically Signed: Finn Alvarado MD at 5:10 EST , Service support , Portable chest x-ray interpreted by myself shows no acute abnormality. No infiltrate. No congestive heart failure. No effusions. Left-sided defibrillator. Rhythm Strip Rhythm Strip: Paced Rate: 81 Ectopy: None EKG Initial EKG: Attestation: I personally reviewed and interpreted this EKG as follows: Interpretation: Paced Comments: Paced rhythm rate 81. Prior EKG tracings: available for review Prior: Unchanged Discharge Plan Triage Chief Complaint: Shortness of Breath ED Provider: Timothy Ba Dx/Rx/DC Orders Clinical Impression: Acute dyspnea, Dilated cardiomyopathy Instructions: ED Dyspnea Prescriptions: No Action morphine 30 mg capsule, ER multiphase 24 hr 30 mg PO BID RF: 0 bacitracin 500 unit/gram packet 1 applic TOPICAL Q12H RF: 0 valproic acid (as sodium salt) 250 mg/5 mL (5 mL) solution 500 mg PO BID RF: 0 Chld Robitussin Cough-Chest DM 5-100 mg/5 mL liquid 10 ml PO Q6H PRN (Reason: Muscle Spasticity) RF: 0 Metamucil 3.4 gram/5.4 gram powder 1 tsp PO TID RF: 0 guaifenesin 200 mg/5 mL liquid 200 mg PO Q4H PRN (Reason: cough) Qty: 473 RF: 6 albuterol sulfate 2.5 mg /3 mL (0.083 %) solution for nebulization 2.5 mg inhalation Q4H PRN PRN (Reason: Sob &/Or Wheezing) Qty: 180 RF: 6 sertraline 50 MG tablet 50 mg PO DAILY RF: 0 cholecalciferol (vitamin D3) 1,000 UNIT tablet 2,000 unit PO DAILY RF: 0 sennosides 1 TABLET tablet 1 tab PO BID RF: 0 aspirin 81 MG tablet,chewable 81 mg PO DAILY@0800 RF: 0 polyethylene glycol 3350 17 GM packet 17 g PO DAILY RF: 0 triamcinolone acetonide 16.9 ML aerosol,spray 1 spray NASAL DAILY RF: 0 alum-mag hydroxide-simeth 30 ML suspension 20 ml PO PRN PRN (Reason: gastric distress) RF: 0 naproxen sodium 220 MG capsule 220 mg G-tube BID PRN PRN (Reason: Pain) RF: 0 glycopyrrolate 1 MG tablet 1.5 mg PO BID RF: 0 cyclobenzaprine 10 MG tablet 10 mg PO BID PRN PRN (Reason: Spasms) RF: 0 cetirizine [Zyrtec] 10 MG tablet 10 mg PO QHS RF: 0 hydrocodone-acetaminophen 1 EACH tablet 1 tab PO TID RF: 0 buspirone 30 MG tablet 30 mg PO BID RF: 0 simethicone 80 MG tablet 160 mg PO TID PRN PRN (Reason: Gas) RF: 0 esomeprazole magnesium [Nexium] 40 mg Capsule,Delayed Release(Dr/Ec) 40 mg PO DAILY RF: 0 lisinopril 20 mg tablet 20 mg PO DAILY Qty: 90 RF: 3 Primary Care Provider: Tyesha Latif Referrals: Tyesha Latif MD [Primary Care Provider] - 3-5 Days if not improving Activity Restrictions/Additional Instructions: If your symptoms are improving follow-up with your primary care physician. Use your home ventilator as needed. Return if feeling a lot worse. Your labs today, chest x-ray and EKG were basically unremarkable or your normal baseline's. Your Covid test was negative. Disposition Disposition: Home, Self Care
[2021-04-09 04:01] LABS: Absolute Lymphocyte Count 1.98 X10^3/uL (0.83-4.51); Absolute Neutrophil Count 2.1 X10^3/uL (2.0-7.7); Basophil# 0.01 X10^3/uL; Basophil% 0.2 % (0-1); Eosinophil# 0.06 X10^3/uL; Eosinophils% 1.3 % (0-5); Hematocrit 36.2 % (40-54); Hemoglobin 12.5 g/dL (13.0-16.5); Lymphocyte # 1.98 X10^3/ul (0.83-4.51); Lymphocyte % 42.8 % (19-41); Mean Corp Hgb Conc 34.5 g/dL (32-36); Mean Corpuscular Hgb 31.4 pg (27.0-32.0); Mean Platelet Vol. 8.8 fl (6.2-12.0); Monocyte% 10.8 % (0-10); NRBC Flagged by Analyzer 0 % (0-5); Neutrophil # 2.07 X10^3/uL (2.7-7.7); Neutrophil % 44.7 % (47-70); Platelet Count 184 K/mm3 (150-450); RBC Distribution Width CV 14.2 % (11.6-14.6); Red Blood Count 3.98 M/mm3 (4.6-6.2); White Blood Count 4.6 K/mm3 (4.4-11.0)
--- NOTE | 2021-04-09 04:35 | RAD_ITS ---
EXAM: XR CHEST, 1 VIEW CLINICAL INDICATION: chest pain chest pain TECHNIQUE: Frontal view of the chest. This report was created using [employer] report generation technology. COMPARISON: 02/23/2021. FINDINGS: LUNGS AND PLEURAL SPACES: There is mild left basilar atelectasis, which appears to be chronic. No pneumothorax. No effusion. HEART: Unremarkable. Cardiac silhouette not enlarged. MEDIASTINUM: Central airways and mediastinal contour are unremarkable. BONES/JOINTS: Unremarkable. SOFT TISSUES: Unremarkable. TUBES, LINES AND DEVICES: There is tracheostomy tube in place. There is an atrioventricular pacemaker. UPPER ABDOMEN: There is prominent bowel gas within the visualized upper abdomen on both the current and previous studies. RAD/Chest 1 View (Portable) IMPRESSION: 1. Tracheostomy tube and pacemaker in place. 2. Mild chronic left basilar atelectasis or fibrosis. 3. No evidence for acute cardiopulmonary pathology. Electronically Signed: Finn Alvarado MD at 5:10 EST , Service support ,
--- NOTE | 2021-04-09 04:46 | ED.RN ---
suctioned via trach for small amount thin white mucus. tolerated procedure.
[2021-04-09 04:57] LABS: Anion Gap 7 (5-15); BUN 7 mg/dL (7-18); Calcium,Total 8.9 mg/dL (8.5-10.1); Chloride 92 mmol/L (98-107); EST Glomerular Filtration Rate 721 mL/min (>60); Est Glom Filt Rate - Afr Amer 873 mL/min (>60); Glucose 91 mg/dL (74-106); Potassium 3.5 mmol/L (3.5-5.1); Sodium Level 130 mmol/L (136-145); Troponin-I HS 11 pg/mL (3.0-78.0)
[2021-04-09 05:05] LABS: Creatinine, Serum < 0.15 mg/dL (0.70-1.30)
[2021-04-09] MEDS: morphine 8 MG/ML Syringe 6 MG IV (06:17)
[2021-04-09] MEDS: Ondansetron 4 MG/2 ML Vial IV (06:18)
== END 2021-04-09 06:48 | disposition home or self-care (01) ==
PROVIDERS: Emergency Provider Emergency Medicine; PCP Internal Medicine
DX: I42.0 Dilated cardiomyopathy (principal); J96.11 Chronic respiratory failure with hypoxia; G71.09 Other specified muscular dystrophies; I11.0 Hypertensive heart disease with heart failure; I44.2 Atrioventricular block, complete; I50.9 Heart failure, unspecified; K58.0 Irritable bowel syndrome with diarrhea; Z79.82 Long term (current) use of aspirin; Z95.0 Presence of cardiac pacemaker; Z87.442 Personal history of urinary calculi; Z74.01 Bed confinement status; Z86.14 Personal history of Methicillin resistant 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 infection
CPT/HCPCS: 71045; 80048; 84484; 85025; 87426; 93005; 96365; 96375; 99285; A4216; J2405

== ENCOUNTER → 2021-04-10 14:51 | Outpatient (CLI) | payer OTHER, MEDICAID, SELFPAY ==
[2021-04-10 17:11] LABS: Partial Thromboplast Time 33.8 Seconds (24.1-36.2)
[2021-04-10 17:37] LABS: Vitamin B12 1331 pg/mL (211-911)
[2021-04-10 17:46] LABS: Valproic Acid (Depakene) Level 97 ug/mL (50-100)
[2021-04-10 17:50] LABS: AST(SGOT) 22 U/L (15-37); Alanine Aminotransfer ALT/SGPT 15 U/L (16-61); Alkaline Phosphatase 110 U/L (45-117); Bilirubin, Direct 0.18 mg/dL (0.00-0.30); Ferritin 240 ng/mL (26-388); Globulin 4.4 g/dL (2.2-4.2); Iron 42 ug/dL (65-175); Protein, Total 7.4 g/dL (6.4-8.2); Sodium Level 130 mmol/L (136-145)
[2021-04-10 17:54] LABS: Free T3 2.2 pg/mL (2.18-3.98); T4 Free Direct 1.67 ng/dL (0.76-1.46); Thyroid Stim Hormone (TSH) 2.55 uIU/mL (0.358-3.74)
== END ==
PROVIDERS: Psychiatry & Neurology Neurology; PCP Internal Medicine; Referring Provider Internal Medicine; Visit Provider Internal Medicine
DX: K21.9 Gastro-esophageal reflux disease without esophagitis (principal); I10 Essential (primary) hypertension; D64.9 Anemia, unspecified; R23.8 Other skin changes; G44.209 Tension-type headache, unspecified, not intractable; Z86.2 Personal history of diseases of the blood and blood-forming organs and certain disorders involving the immune mechanism
CPT/HCPCS: 36415; 80076; 80164; 82607; 82728; 82746; 83540; 84295; 84439; 84443; 84481; 85610; 85730

== ENCOUNTER 2021-05-09 12:45 | Outpatient (RCR) | payer OTHER, MEDICAID, SELFPAY | END 2021-06-04 23:59 | LOC: NS 12:45 | PROVIDERS: PCP Internal Medicine; Visit Provider Internal Medicine | DX: G71.00 Muscular dystrophy, unspecified (principal); Z93.1 Gastrostomy status | CPT/HCPCS: 97802 ==

== ENCOUNTER 2021-06-06 11:05 | Outpatient (CLI) | payer OTHER, MEDICAID, SELFPAY ==
[2021-06-06 11:12] LABS: Bacteria 0 SEEN /hpf (None Seen); Mucous, Urine 0 SEEN /hpf (<or=2+); Red Blood Cells-Urine 0 SEEN /hpf (0-5); Squamous Epithelial Cells - UA 0 SEEN /hpf (0-5); White Blood Cells 0 SEEN /hpf (0-5)
[2021-06-06 12:09] LABS: Color, Urine Yellow (Yellow); Glucose, Dipstick Normal (Normal); Ketone-Dipstick 5 mg/dl (Negative); Leukocyte Esterase-Dipstick Negative /ul (Negative); Nitrite-Dipstick Negative (Negative); Occult Blood-Urine Negative /ul (Negative); Protein-Dipstick Negative (Negative); Urine Bilirubin Dipstick Negative (Negative); Urine Clarity Clear (Clear); Urine Urobilinogen Normal (Normal)
== END 2021-06-06 23:59 | disposition short-term general hospital (02) ==
LOC: MFPLAB 11:09
PROVIDERS: PCP Internal Medicine; Visit Provider Internal Medicine
DX: Z87.898 Personal history of other specified conditions (principal)
CPT/HCPCS: 81001

== ENCOUNTER 2021-07-18 12:59 | Outpatient (CLI) | payer OTHER, MEDICAID, SELFPAY ==
--- NOTE | 2021-07-18 13:04 | ECHOD_ITS ---
Reason For Study: CHEST PAIN Procedure This was a 2D Doppler, Color Flow transthoracic echocardiogram. The study was technically difficult. Exam performed in wheel chair, unable to obtain IV access x 2 attempts. Exam performed in department. Left Ventricle Based upon the 2D echocardiographic images obtained there appears to be grossly normal left ventricular size, with interventricular wall motion compatible with an underlying IVCD/electronic ventricular pacemaker, and grossly normal-appearing left ventricular systolic function. The estimated ejection fraction is 55 %. Transmitral doppler flow suggestive of impaired relaxation of left ventricle. Right Ventricle ICD or pacer leads identified within the right ventricle. Based upon the 2D echocardiographic images obtained there appears to be grossly normal right ventricular size and systolic function. Atria Normal left atrium. Normal right atrium. ICD or pacer leads identified within the right atrium. No doppler evidence for ASD. Mitral Valve There is no mitral annular calcification. Normal mitral valve. Tricuspid Valve The tricuspid valve is not well visualized. Trivial tricuspid valve insufficiency. Right ventricular systolic pressure estimated to be 27 mmHg. Aortic Valve Trisinus/trileaflet aortic valve. Normal aortic valve. Pulmonic Valve The pulmonic valve is not well visualized. Trivial pulmonic valve insufficiency. Great Vessels Normal sized aortic root. Pericardium/Pleural No pericardial effusion. MMode/2D Measurements & Calculations LVIDd: 4.4 cm IVSd: 0.85 cm Ao root diam: 3.5 cm LVIDs: 2.6 cm LVPWd: 0.82 cm FS: 41.2 % LAV(MOD-bp): 29.5 ml LA A4 area: 11.3 cm2 LA dimension(2D): 3.5 cm LAV(MOD-bp) Indexed: 15.4 ml/m2 LAV(MOD-sp2): 33.6 ml LAV(MOD-sp4): 22.8 ml Doppler Measurements & Calculations MV E max josé: 69.2 cm/sec Lat Peak E' José: 9.9 cm/sec Med Peak E' José: 8.3 cm/sec MV A max josé: 110.7 cm/sec E/E' lat: 7.0 E/E' med: 8.4 MV E/A: 0.63 Ao V2 max: 70.0 cm/sec LV V1 max: 72.2 cm/sec PA V2 max: 78.1 cm/sec Ao max P.0 mmHg LV V1 max P.1 mmHg TR max josé: 244.8 cm/sec TR max P.0 mmHg ECHO/Echo Complete Interpretation Summary The study was technically difficult. Based upon the 2D echocardiographic images obtained there appears to be grossly normal left ventricular size, with interventricular wall motion compatible with an underlyi ng IVCD/electronic ventricular pacemaker, and grossly normal-appearing left ventricular systolic f unction. The estimated ejection fraction is 55 %. Trivial tricuspid valve insufficiency. Trivial pulmonic valve insufficiency. Right ventricular systolic pressure estimated to be 27 mmHg. Transmitral doppler flow suggestive of impaired relaxation of left ventricle Ordering Physician: Juanis Dixon Referring Physician: Tyesha Latif Performed By: Adia Abel RDCS, RVT
== END 2021-07-18 23:59 | disposition home or self-care (01) ==
LOC: CVS 13:04
PROVIDERS: PCP Internal Medicine; Referring Provider Nurse Practitioner Gerontology; Visit Provider Nurse Practitioner Gerontology
DX: R07.9 Chest pain, unspecified (principal)
CPT/HCPCS: 93306; Q9957; A4216

== ENCOUNTER 2021-08-13 16:57 | Outpatient (RCR) | payer OTHER, MEDICAID, SELFPAY ==
--- NOTE | 2021-08-27 15:51 | NT.THERAPY_ITS ---
Medical Nutrition Therapy - History Nutrition Services has been consulted to:: Manage parenteral nutrition Current diet/nutrition support order:: PEG - Anthropometric Measurements Height:: 5 ft 9 in Weight:: 72.6 kg Body Mass Index (BMI):: 23.6 - Assessment Food and Nutrient Intake: Peptamen: 1750 mL/day via J-tube inserted on 08/24/21 with 300mL H20/day for hydration. - Nutrition Diagnosis: Clinical Problem Swallowing Difficulty Clinical Problem - Etiology: Oral intake not possible related to Muscular Dyst ophy Clinical Problem - Signs/Symptoms: Choking with oral itake Status: Active Problem - Protein Calorie Malnutrition Evidence of Malnutrition Exists: No - Nutrition Intervention Nutrition Prescription: Estimated Calorie needs: Approx 1800 / day (RMR x 1.2). Estimated Protein needs: Approx 80 gm / day (1.0 x kg). Estimated Fluid needs: 2000 mL / day (25 mL / kg) - Food / Nutrient Delivery Interventions Summary of nutrition intervention:: Order/adjust enteral nutrition Nutrition support ordered as / adjusted to:: Consider changing from gravity feed to pump administration Nutrition education provided?: Yes - Reviewed Plan with Home Health Staff & (Nicky) Coordination of Nutrition Care: Coordination of care by phone with Rika (Home Health Care) & Elizabeth (Home Health Nurse). Request for consideration of order change faxed to Dr. Latif - MNT Monitoring Active Nutrition Patient: Yes Nutrition Status: Requires Follow Up 7-9 Days
[2021-08-27 15:53] VITALS: BMI 23.6
== END 2021-09-01 23:59 ==
LOC: NS 16:57
PROVIDERS: PCP Internal Medicine; Visit Provider Internal Medicine
DX: Z71.3 Dietary counseling and surveillance

== ENCOUNTER 2021-08-14 11:44 | Day surgery (SDC) | payer OTHER, MEDICAID, SELFPAY ==
[2021-08-14 12:20] VITALS: BP 150/88; PULSE 83; RESP 18; TEMP 36.3; O2SAT 97; BMI 23.9
[2021-08-14] MEDS: Lactated Ringers 1,000 ML 15 ML IV (12:35)
--- NOTE | 2021-08-14 13:02 | HP.PCM_ITS ---
History and Physical Date of Admission: 08/14/21 DELIA RUIZ, is a 61 M who presents to the office today for Evaluation of GERD and difficulty swallowing. Delia became established with this clinic 05.09.21 with referral from PCP. Symptoms at initial presentation included reflux, difficulty swallowing, loose stools with difficulty initiating movement. Additional history of Hewitt?s muscular dystrophy with PEG tube placement, tracheostomy with use of mechanical ventilation at home. Specialists include: Pulmonary, Dr. Yan; neurology, Dr. Cardoza; cardiology, Dr. Lopez (cardiomyopathy and presence of pacemaker), pain management, Dr. Hoang with [facility]. Plan from last visit 05.09.21: GERD ? start prevacid rather than colestipol through PEG tube. Reflux suspected to be worse secondary to gastrostomy tube and would benefit from GJ tube with additional benefit of aspiration risk reduction. Difficulty swallowing ? Recommend EGD with possible dilation. Suspect tracheostomy tube affecting upper esophagus. Reports that his reflux is worse since last presentation. Enteral feed has been changed from Boost to associate professor of medicine recommended Pivot 1.5 formula which is denser than the Boost and water has increased with this formula change. With this he now feels more full and reflux has gotten worse with him waking every morning with reflux. Formula has not been changed to something appropriate for the J- Tube. They do not have an appointment set at this time to meet with associate professor of medicine, recommended setting appointment. He does not take anything by mouth, will take water into his mouth to moisten and the spit it out. ROS Const Constitutional: No fatigue, malaise, night sweats, weight change, sleep problems, abnormal sleep pattern or change in appetite ENT ENT: No difficulty swallowing or sore throat Cardio Cardiology: No chest pain at rest Gastro GI: No abdominal pain, belching, change in bowel habits, change in stool shaylee cter, coffee ground emesis, constipation, cramping, diarrhea, difficulty swallowing, feeling full early, excessive flatus, incontinent of stools, Vomiting blood/hematemesis, Blood in stool, loose stools, Black,tarry stools, nausea/dyspepsia, pain with swallowing, vomiting or other Musc Musculoskeletal: No joint pain Skin Skin: No yellowing of the eye or itchy eyes Neuro Neurology: No behavioral changes Psych Psychiatric: No abnormal sleep pattern, No behavioral changes, No change in appetite and No depression Endo Endocrine: No fatigue or weight change Aller/Imm Allergy/Immunologic: No itchy eyes Renzo/Lymp Hematologic/Lymphatic: No easy bleeding or easy bruising Quality Reporting Tobacco Screening ([facility] 138) Smoking Status: Never smoker Assessment and Plan Assessment and Plan (1) Difficulty swallowing: Status: Acute Plan - Dr. Castañeda Friend, DO: We will evaluate his upper GI tract for any intraesophageal pathology. If needed will perform biopsies in esophageal dilation. (2) GERD (gastroesophageal reflux disease): Status: Acute Plan - Luda Seymour: Found carafate helpful in managing the burning feeling. May start medication at two times a day and titrate to three times a day as needed. Plan - Dr. Castañeda Friend, DO: I think some of his symptoms are secondary to his PEG tube causing reflux esophagitis. Hopefully by placing a percutaneous jejunostomy tube this will cut down on some of his reflux symptoms. Plan Details Other Medications: Refilled: sucralfate 10 mL PO QAC 1,000 mL 0RF I have re-examined the patient. There are no clinical changes since date of exam.
[2021-08-14 13:45] VITALS: BP 150/88; BP 164/88; BP 179/100; PULSE 68; PULSE 84; RESP 16; RESP 18; TEMP 35.8; O2SAT 96; O2SAT 99
--- NOTE | 2021-08-14 13:48 | OP.EGD_ITS ---
Patient Name: Benjamin Locke Procedure Date: 08/14/2021 1:05 PM Date of : 1960 Age: 61 Procedure: Upper GI endoscopy Indications: Iron deficiency anemia, Failure to respond to medical treatment Providers: Garry Guaman DO Medicines: Sedation Required Anesthesia Staff Assistance Patient Profile: This is a 61 year old male. Refer to note in patient chart for documentation of history and physical. Patient has symptoms of chronic dysphagia and chronic vomiting. Complications: No immediate complications. Procedure: Pre-Anesthesia Assessment: - Prior to the procedure, a History and Physical was performed, and patient medications and allergies were reviewed. The patient is competent. The risks and benefits of the procedure and the sedation options and risks were discussed with the patient. All questions were answered and informed consent was obtained. Patient identification and proposed procedure were verified by the physician in the pre-procedure area. Mental Status Examination: alert and oriented. Airway Examination: normal oropharyngeal airway and neck mobility. Respiratory Examination: clear to auscultation. CV Examination: normal. Prophylactic Antibiotics: The patient does not require prophylactic antibiotics. Prior Anticoagulants: The patient has taken no previous anticoagulant or antiplatelet agents. ASA Grade Assessment: II - A patient with mild systemic disease. After reviewing the risks and benefits, the patient was deemed in satisfactory condition to undergo the procedure. The anesthesia plan was to use moderate sedation / analgesia (conscious sedation). Immediately prior to administration of medications, the patient was re-assessed for adequacy to receive sedatives. The heart rate, respiratory rate, oxygen saturations, blood pressure, adequacy of pulmonary ventilation, and response to care were monitored throughout the procedure. The physical status of the patient was re-assessed after the procedure. After obtaining informed consent, the endoscope was passed under direct vision. Throughout the procedure, the patient's blood pressure, pulse, and oxygen saturations were monitored continuously. The pediatric colonoscope was introduced through the mouth, with the intention of advancing to the esophagus. The scope was advanced to the cricopharyngeal esophagus before the procedure was aborted. Medications were given. The Endoscope was introduced through the and advanced to the. The upper GI endoscopy was extremely difficult due to post-surgical anatomy. Successful completion of the procedure was aided by withdrawing and reinserting the scope. The patient tolerated the procedure well. Moderate Sedation: Moderate (conscious) sedation was administered by the endoscopy nurse and supervised by the endoscopist. The patient's oxygen saturation, heart rate, blood pressure and response to care were monitored. Total physician intraservice time was 15 minutes. Scope In: 1:20:15 PM Scope Out: 1:30:52 PM Total Procedure Duration Time 0 hours 10 minutes 37 seconds Findings: The nasopharynx was normal. The larynx was normal. One benign-appearing, intrinsic stenosis was found in the proximal esophagus. This stenosis was severe (stenosis; an endoscope cannot pass) and measured 1 mm (inner diameter) x 3 cm (in length). The stenosis was not traversed. Impression: - Normal nasopharynx. - Normal larynx. - Benign-appearing esophageal stenosis. - No specimens collected. Recommendation: - Discharge patient to home. - Refer to a surgeon. - Continue present medications. Procedure Code(s): --- Professional --- 50905, 52, Esophagoscopy, flexible, transoral; diagnostic, including collection of specimen(s) by brushing or washing, when performed (separate procedure) G0500, Moderate sedation services provided by the same physician or other qualified health health care legal assistant performing a gastrointestinal endoscopic service that sedation supports, requiring the presence of an independent trained observer to assist in the monitoring of the patient's level of consciousness and physiological status; initial 15 minutes of intra-service time; patient age 5 years or older (additional time may be reported with 68447, as appropriate) CPT copyright 2017 [employer]. All rights reserved. The codes documented in this report are preliminary and upon house designer review may be revised to meet current compliance requirements. Garry Guaman DO 08/14/2021 1:47:29 PM This report has been signed electronically. Number of Addenda: 1 Note Initiated On: 08/14/2021 1:05 PM Addendum Number: 1 Addendum Date: 01/31/2022 6:38:41 AM MAC was used as sedation for this procedure. Garry Guaman DO 01/31/2022 6:38:45 AM This report has been signed electronically.
--- NOTE | 2021-08-14 13:49 | OP.CCLET_ITS ---
01/31/2022 Tyesha Latif [facility] [address] [place] [address] Re : Upper GI endoscopy procedure for Benjamin Locke Dear Dr. Latif This procedure was performed on Saturday, August 14, 2021. My impressions and recommendations are as follows: Impressions : - Normal nasopharynx. - Normal larynx. - Benign-appearing esophageal stenosis. - No specimens collected. Recommendations : - Discharge patient to home. - Refer to a surgeon. - Continue present medications. My findings are described in the full procedure note, which is enclosed. If I can be of further assistance, please feel free to contact me at . Sincerely, Garry Guaman, 08/14/2021 1:47:29 PM This report has been signed electronically.
[2021-08-14 13:50] VITALS: BP 150/88; BP 179/100; PULSE 71; RESP 16; O2SAT 100
[2021-08-14 13:55] VITALS: BP 150/88; BP 175/103; PULSE 7; RESP 16; O2SAT 100
[2021-08-14 14:00] VITALS: BP 150/88; BP 172/104; PULSE 75; RESP 16; TEMP 35.7; O2SAT 16
[2021-08-14 14:20] VITALS: BP 150/88
== END 2021-08-14 23:59 | disposition home or self-care (01) ==
LOC: EN 11:50 → AC 11:50
PROVIDERS: PCP Internal Medicine; Referring Provider Internal Medicine; Visit Provider Internal Medicine Gastroenterology
PROC: 0DJ08ZZ Inspection of Upper Intestinal Tract, Via Natural or Artificial Opening Endoscopic (ICD-10-PCS; CPT 43235; principal; 2021-08-14 12:55)
DX: K22.2 Esophageal obstruction (principal); Z99.11 Dependence on respirator [ventilator] status; Z93.1 Gastrostomy status; G71.00 Muscular dystrophy, unspecified; J96.11 Chronic respiratory failure with hypoxia; R13.10 Dysphagia, unspecified; D50.9 Iron deficiency anemia, unspecified; K21.9 Gastro-esophageal reflux disease without esophagitis; Z79.899 Other long term (current) drug therapy; Z99.3 Dependence on wheelchair; I10 Essential (primary) hypertension; F41.9 Anxiety disorder, unspecified; F32.A Depression, unspecified
CPT/HCPCS: 43235; J7120

== ENCOUNTER → 2021-08-24 | Outpatient (CLI) | payer OTHER, MEDICAID, SELFPAY ==
[2021-08-24] VITALS (9 sets, daily range): BP systolic 126–166; BP diastolic 65–84; PULSE 79–94; RESP 14–23; TEMP 37.1; O2SAT 95–100; BMI 23.6
--- NOTE | 2021-08-24 12:30 | RAD_ITS ---
CLINICAL HISTORY: Male, 61 years old with malfunctioning gastrostomy tube, conversion to gastrojejunostomy tube requested. PROCEDURE: Conversion of percutaneous gastrostomy tube to gastrojejunostomy tube. FLUOROSCOPY TIME (if supplied): 816 minutes/seconds TECHNIQUE: All elements of maximal sterile barrier technique followed, including US elements as applicable) CONSENT: Informed, written consent was obtained from the patient, prior to procedure following discussion of risks, benefits, alternatives and personnel. Patient agreed to proceed. PERFORMING PHYSICIAN: Emma Bryant MD DATE OF PROCEDURE: 08/24/2021 WOOD MECHANIST: None ESTIMATED BLOOD LOSS: Negligible SPECIMENS REMOVED: None COMPLICATIONS: None FLUOROSCOPY TIME (if supplied): (8:16) minutes/seconds SEDATION: Conscious sedation VERSED 3 mg and FENTANYL 100mcg. COMPARISON: 08/22/2021 22fluoroscopic images were obtained. TECHNIQUE: Patient was positioned supine on the fluoroscopy table. The existing percutaneous gastrostomy tube and the overlying skin and subcutaneous soft tissues were then prepped and draped in the usual sterile manner. Contrast and air were injected into the stomach delineating the antrum and pyloric canal. A 5 [place] BERENSTEIN catheter was then inserted in tandem with an 0.035 angled Glidewire and they were used to access the distal stomach, the wire was removed and contrast was injected through the catheter opacifying the gastric outlet and the proximal duodenum. Additional air, contrast and saline were injected through the BERENSTEIN catheter to delineate the gastric outlet. The Glidewire was then reintroduced and was used in tandem with the catheter to cannulate the gastric outlet and both advanced into the distal duodenum. The Glidewire was then exchanged for a stiff AMPLATZ wire. A percutaneous gastrojejunostomy tube was then inserted over the AMPLATZ wire through the stomach and duodenum into the jejunum, contrast injection confirmed positioning. The retention balloon was then inflated after which contrast was injected through the stomach port confirming positioning. The tube was then secured to the skin and sterile dressing was applied. The patient tolerated the procedure well with no immediate complications and was transferred in stable condition. RAD/Fluoroscopy 1 Hr or Less IMPRESSION: Exchange of percutaneous gastrostomy tube for a percutaneous gastrojejunostomy tube, jejunostomy tube tip in the distal duodenum Tube ready for immediate use. Electronically Signed: Cedric Bryant MD at 16:29 EDT ,
[2021-08-24] MEDS: Lidocaine 2% (20 ml mdv) 20 ML Vial INFILT (13:35)
[2021-08-24] MEDS: fentaNYL 100 MCG/2 ML Ampul IV ×3 (13:37→14:12)
[2021-08-24] MEDS: Midazolam 2 MG/2 ML Syringe IV ×3 (13:37→14:12)
== END | disposition home or self-care (01) ==
PROVIDERS: PCP Internal Medicine; Visit Provider Physician Assistant
DX: K94.23 Gastrostomy malfunction (principal)
CPT/HCPCS: 49446; 49452; 76000; 99156; 99157; J7040; Q9965; A4216; C1769; C1894

== ENCOUNTER → 2021-08-30 | Outpatient (CLI) | payer OTHER, MEDICAID, SELFPAY | END | disposition home or self-care (01) | LOC: LABSPEC 14:33 | PROVIDERS: PCP Internal Medicine; Referring Provider Internal Medicine; Visit Provider Internal Medicine | DX: R30.0 Dysuria (principal); N42.81 Prostatodynia syndrome | CPT/HCPCS: 87086; 87088 ==

== ENCOUNTER → 2021-09-27 | Outpatient (CLI) | payer OTHER, MEDICAID, SELFPAY ==
[2021-09-28 08:12] LABS: Bacteria 0 SEEN /hpf (None Seen); Mucous, Urine 0 SEEN /hpf (<or=2+); Red Blood Cells-Urine 0 SEEN /hpf (0-5); Squamous Epithelial Cells - UA 0 SEEN /hpf (0-5); White Blood Cells 0 SEEN /hpf (0-5)
[2021-09-28 12:26] LABS: Color, Urine Yellow (Yellow); Glucose, Dipstick Normal (Normal); Ketone-Dipstick Negative (Negative); Leukocyte Esterase-Dipstick Negative /ul (Negative); Nitrite-Dipstick Negative (Negative); Occult Blood-Urine Negative /ul (Negative); Protein-Dipstick Negative (Negative); Specific Gravity, Urine 1.015 (1.002-1.030); Urine Bilirubin Dipstick Negative (Negative); Urine Clarity Clear (Clear); Urine Urobilinogen Normal (Normal)
== END | disposition home or self-care (01) ==
PROVIDERS: PCP Internal Medicine; Referring Provider Nurse Practitioner Family; Visit Provider Nurse Practitioner Family
DX: N41.9 Inflammatory disease of prostate, unspecified (principal)
CPT/HCPCS: 81001; 87086

== ENCOUNTER → 2021-10-12 | Outpatient (CLI) | payer OTHER, MEDICAID, SELFPAY ==
--- NOTE | 2021-10-12 16:30 | RAD_ITS ---
STUDY: X-RAY - LUMBAR SPINE REASON FOR EXAM: Male, 61 years old. chronic low back pain TECHNIQUE: 3 view(s) of the lumbar spine were obtained. COMPARISON: None FINDINGS: Normal lumbar lordosis. There is no substantial scoliosis. There is a normal alignment of the vertebrae. Normal vertebral bodies and endplates. Normal disc space heights. The soft tissue structures are unremarkable. RAD/Lumbar Spine 2 or 3 Views IMPRESSION: Normal x-ray examination of the lumbar spine. Electronically Signed: Ac Flaherty MD at 16:50 EDT ,
== END | disposition home or self-care (01) ==
LOC: RAD 16:09
PROVIDERS: PCP Internal Medicine; Referring Provider Nurse Practitioner Family; Visit Provider Nurse Practitioner Family
DX: M54.50 Low back pain, unspecified (principal); G89.29 Other chronic pain
CPT/HCPCS: 72100

== ENCOUNTER 2021-10-30 11:41 | Observation (INO) | payer OTHER, MEDICAID, SELFPAY ==
[2021-10-30] VITALS (12 sets, daily range): BP systolic 123–159; BP diastolic 65–92; PULSE 74–91; RESP 15–28; TEMP 36.2–36.7; O2SAT 95–99; BMI 25.7; BMI 24.3
--- NOTE | 2021-10-30 12:02 | EKG12_ITS ---
Test Reason : CP Blood Pressure : / mmHG Vent. Rate : 080 BPM Atrial Rate : 080 BPM P-R Int : 162 ms QRS Dur : 182 ms QT Int : 434 ms P-R-T Axes : 027 240 040 degrees QTc Int : 500 ms Atrial-sensed ventricular-paced rhythm Abnormal ECG Confirmed by HERMILO JOHNSON, [place] ([id number]), video editor LUCIANA GARCIA ([id number]) on 11/01/2021 10:58:54 AM Referred By: ISABELLE Confirmed By:[place] AKHTAR MD
--- NOTE | 2021-10-30 12:02 | RAD_ITS ---
STUDY: X-RAY CHEST REASON FOR EXAM: Male, 61 years old. Chest pain TECHNIQUE: Single AP portable view of the chest. COMPARISON: Comparison is made with prior study dated 04/09/2021. FINDINGS: A tracheostomy tube is in situ. The tip is at 4.4 cm proximal to the terrence. EKG electrodes are seen. There is blunting of the left costophrenic angle. Mild increased markings at the left lung base suggestive of atelectasis. This is unchanged. There is no demonstrated pleural abnormality. Normal size heart. A left-sided dual-chamber pacemaker is present. Normal mediastinum and jluissa. Normal visualized pulmonary arteries. Normal visualized aortic arch and descending thoracic aorta. Normal visualized thoracic spine. Normal visualized ribs, clavicles, and shoulders. There is no demonstrated abnormality of the visualized soft tissue structures of the upper abdomen. RAD/Chest 1 View (Portable) IMPRESSION: Stable pleural parenchymal changes at the left lung base. Tracheostomy tube is in situ. Electronically Signed: Mikey Angeles MD at 13:02 EDT ,
--- NOTE | 2021-10-30 12:03 | EDS_ITS ---
HPI History of Present Illness Chief Complaint: Chest Pain Detail of Chief Complaint: Chest pain off and on for a year Informant: patient Onset/Context/Timing Current Severity: 01/12 Narrative Narrative: Patient presents to the emergency department via EMS from home with complaint of chest pain that started around 10:30 AM. Patient describes a sharp pain in his left chest that radiates to his neck and down his left arm. Patient states he has had similar pains in the past and typically lasts an hour or 2 and then gets better. Patient has history of complete heart block and history of a pacemaker. No coronary artery disease history. Patient denies recent travel or surgery. Patient has a tracheostomy and PEG tube. Pain did come on at rest. Patient also with history of anxiety. Prior Similar Symptoms: Yes PFSH PFS Medical History (Updated 10/30/21 @ 13:[address] Shanna Motley, ) Acute respiratory failure Anemia Anxiety Back pain Back pain Cardiology follow-up encounter Cardiomyopathy Carotid artery calcification Chest pain Chest pain Chronic hypoxemic respiratory failure Chronic low back pain Complete heart block Depression Diarrhea Dietary restriction Difficulty balancing Dilated cardiomyopathy Frequent headaches GERD (gastroesophageal reflux disease) Heart disease Hereditary progressive muscular dystrophy History of echocardiogram History of edema History of IBS History of urinary calculi Hypertension Injury of head and neck Irritable bowel syndrome Kidney stones Limb weakness MRSA (methicillin resistant 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) colonization Muscular dystrophy Non-smoker On home oxygen therapy Otitis interna PEG tube malfunction Pneumonia Pneumonia Pseudomonas pneumonia Shoulder pain Sick sinus syndrome SOB (shortness of breath) Thyroid disease Troponin I above reference range Uses wheelchair Ventilator dependent Home Medications cholecalciferol (vitamin D3) 25 mcg (1,000 unit) tablet 2,000 unit feeding tube DAILY SUPPLEMENT 07/01/14 [History Last Taken 07/10/18] aspirin 81 mg chewable tablet 81 mg feeding tube DAILY@0800 HEART HEATLTH 03/09/15 [History Last Taken 07/10/18] sennosides 8.6 mg tablet 1 tab feeding tube BID PRN Constipation 03/09/15 [History Last Taken 07/10/18] bacitracin 500 unit/gram topical packet 1 applic topical PRN PRN Skin Cleansing 07/05/17 [History Last Taken Unknown] aluminum-mag hydroxide-simethicone 400 mg-400 mg-40 mg/5 mL oral susp 20 ml PO PRN PRN gastric distress 07/07/18 [History Last Taken Unknown] naproxen sodium 220 mg capsule 220 mg G-tube BID PRN PRN Pain 07/07/18 [History Last Taken Unknown] cyclobenzaprine 10 mg tablet 10 mg feeding tube BID PRN PRN Spasms 07/10/18 [History Last Taken 07/09/18] hydrocodone 10 mg-acetaminophen 325 mg tablet 1 tab feeding tube PRN PRN Pain 07/10/18 [History Last Taken 08/14/21] simethicone 80 mg chewable tablet 160 mg feeding tube TID PRN PRN Gas 07/10/18 [History Last Taken 07/08/18] dextromethorphan-guaifenesin 5 mg-100 mg/5 mL oral liquid (Child Robitussin Cough-Chest DM) 10 ml feeding tube Q6H PRN Muscle Spasticity 02/11/20 [History Last Taken Unknown] albuterol sulfate 2.5 mg (3 mL) inhalation Q4H PRN PRN Sob &/Or Wheezing #180 mL 09/27/20 [Rx Last Taken Unknown] sodium chloride 0.9 % for nebulization 1 ml inhalation Q8H PRN thick secretions 04/10/21 [History Last Taken Unknown] zinc oxide 10 % topical ointment 1 applic topical BID-QID PRN Skin Cleansing 04/10/21 [History Last Taken Unknown] albuterol sulfate 90 mcg/actuation aerosol inhaler (ProAir HFA) 2 puff inhalation TID PRN sob 08/06/21 [History Last Taken Unknown] ferrous sulfate 15 mg iron (75 mg)/mL oral drops (Henry-In-Domonique) 1 ml PO BID 08/13/21 [History Last Taken Unknown] guaifenesin 200 mg/5 mL oral liquid 200 mg feeding tube Q4H PRN cough 08/13/21 [History Last Taken Unknown] lansoprazole 30 mg delayed release,disintegrating tablet 30 mg feeding tube DAILY 08/13/21 [History Last Taken 08/14/21] valproic acid (as sodium salt) 250 mg/5 mL (5 mL) oral solution 500 mg feeding tube BID 08/13/21 [History Last Taken Unknown] glycopyrrolate 1 mg tablet 1.5 mg feeding tube BID GI #135 tabs 09/03/21 [Rx Last Taken Unknown] buspirone 30 mg tablet 30 mg feeding tube BID ANXIETY #180 tabs 09/10/21 [Rx Last Taken Unknown] cetirizine 10 mg tablet (Zyrtec) 10 mg feeding tube QHS PRN ALLERGIES 09/21/21 [History Last Taken Unknown] morphine 20 mg/5 mL (4 mg/mL) oral solution 20 mg PO Q6H PRN Pain 09/21/21 [History Last Taken Unknown] nystatin 100,000 unit/gram topical cream 1 applic topical BID PRN redness 09/21/21 [History Last Taken Unknown] triamcinolone acetonide 55 mcg nasal spray aerosol 1 spray NASAL DAILY PRN ALLERGIES 09/21/21 [History Last Taken Unknown] cephalexin 500 mg capsule 500 mg PO Q8H 10/30/21 [History Last Taken Unknown] glycerin (adult) 1 supp IN BID PRN Constipation 10/30/21 [History Last Taken Unknown] glycerin (adult) (Fleet Glycerin (Adult)) 1 supp IN DAILY PRN Constipation 10/30/21 [History Last Taken Unknown] hydrocortisone acetate 25 mg rectal suppository (Anucort-HC) 25 mg IN DAILY PRN Hemorrhoids 10/30/21 [History Last Taken Unknown] levothyroxine 25 mcg capsule 25 mcg PO DAILY 10/30/21 [History Last Taken Unknown] nystatin 100,000 unit/gram topical powder (Nyamyc) 1 applic topical BID PRN redness 10/30/21 [History Last Taken Unknown] polyethylene glycol 3350 17 gram oral powder packet (Miralax) 17 g PO BID PRN Constipation 10/30/21 [History Last Taken Unknown] psyllium husk (aspartame) 3.4 gram/5.8 gram oral powder (Metamucil Sugar-Free (aspartame)) 3 g PO TID PRN Constipation 10/30/21 [History Last Taken Unknown] rimegepant 75 mg disintegrating tablet (Nurtec ODT) 75 mg PO QODAY PRN Headache 10/30/21 [History Last Taken Unknown] silver nitrate applicators 75 %-25 % topical stick 1 ea topical PRN PRN tissue redness 10/30/21 [History Last Taken Unknown] silver sulfadiazine 1 % topical cream 1 applic topical DAILY PRN redness 10/30/21 [History Last Taken Unknown] sodium bicarbonate 8.4 % (1 mEq/mL) intravenous syringe 10 meq DAILY 10/30/21 [History Last Taken Unknown] sodium phosphates 19 gram-7 gram/118 mL enema (Enema) 118 ml IN DAILY PRN Constipation 10/30/21 [History Last Taken Unknown] triamcinolone acetonide 55 mcg nasal spray aerosol (Nasacort) 2 spray intranasal DAILY PRN Congestion 10/30/21 [History Last Taken Unknown] Allergy/AdvReac Type Severity Reaction Status Date / Time No Known Allergies Allergy Verified 10/30/21 11:47 Family History Mother Heart disease Myocardial infarction Arthritis Depression Father Thyroid cancer Myocardial infarction Parkinson disease Arthritis Sister Thyroid cancer Arthritis Surgical History Gastrointestinal tube in situ History of esophagogastroduodenoscopy (EGD) History of hemorrhoidectomy History of release of tendon Presence of cardiac pacemaker Tracheostomy tube present (~2013) Social History Smoking Status: Never smoker second hand exposure: No alcohol intake: never substance use type: does not use caffeine: Yes Type: coffee what type of physical activity do you participate in: none ROS ROS ED Review of Systems ROS Unobtainable: other Constitutional Constitutional ED: Reports lethargy; Denies chills, fever(s), sweats or weight loss Eyes Eyes: Denies blurry vision, change in vision or diplopia ENT ENT ED: Denies rhinorrhea or sore throat Cardiovascular Cardiovascular: Reports chest pain and racing heartbeat; Denies orthopnea Respiratory/Chest Respiratory/Chest: Reports dyspnea and dyspnea on exertion; Denies cough, orthopnea or sputum Gastrointestinal Gastrointestinal: Denies abdominal pain, diarrhea, nausea or vomiting Genitourinary Genitourinary ED: Denies dysuria, hematuria or urinary frequency Musculoskeletal Musculoskeletal: Denies arthralgias, back pain, myalgias or neck pain Integumentary Denies abscess, Abrasions or rash Neurologic Neurologic: Denies headache(s) or weakness Psychiatric Psychiatric: Denies anxiety, depression or suicidal thoughts Endocrine Endocrinology: Denies polydipsia, polyphagia or polyuria Hematologic/Lymphatic Hematologic/Lymphatic: Denies easy bleeding, easy bruising or lymphadenopathy Allergic/Immunologic Allergic/Immunologic ED: Denies mouth swelling, tongue swelling or urticaria EXAM Physical Exam Const Vital Signs: 10/30/21 11:43 10/30/21 12:34 10/30/21 12:43 Temperature 97.5 F L Temperature Source Temporal Pulse Rate 85 78 Respiratory Rate 28 H Respiratory Effort Normal Non-Labored Blood Pressure 159/92 H 156/84 H Blood Pressure Mean 114 Pulse Ox 97 Oxygen Delivery Method Room Air 10/30/21 12:44 10/30/21 12:48 10/30/21 12:54 Temperature Temperature Source Pulse Rate 88 81 Respiratory Rate Respiratory Effort Blood Pressure 135/82 H 130/82 H Blood Pressure Mean Pulse Ox Oxygen Delivery Method Room Air 10/30/21 12:59 Temperature Temperature Source Pulse Rate 81 Respiratory Rate 15 Respiratory Effort Blood Pressure 123/83 H Blood Pressure Mean 96 Pulse Ox 95 Oxygen Delivery Method Room Air Positive well nourished and well developed General Appearance ED: well developed and NAD HEENT Reports TM's clear and moist mucous membranes HEENT Narrative: Patient has a tracheostomy normocephalic and atraumatic; Negative for trauma or tenderness Tympanic Membrane ED: Yes TM's clear Eyes PERRL and EOMs intact bilaterally General Eye ED: Negative for pale conjunctiva or scleral icterus Neck no lymphadenopathy, supple and no JVD General: Negative for tenderness Chest Wall inspection of chest normal and palpation of chest normal Chest: Negative for tenderness Resp normal respiratory effort and clear to auscultation bilaterally Effort and Inspection: Negative for respiratory distress or pain with movement Auscultation: Negative for rhonchi, wheezes or diminished lung sounds Cardio regular rate, regular rhythm, S1 normal heart sound, S2 normal heart sound and no murmurs Peripheral Pulses: pulses 2+ throughout GI normal to inspection, nondistended, normoactive bowel sounds, soft to palpation, non-tender, non-distended and no masses GI Narrative: Patient has a feeding tube in place. Back/Spine no CVA tenderness and no thoracic nor lumbar tenderness Extremity normal to inspection General Extremety ED: Negative for edema General Extremity: Negative for edema Neuro oriented x3, CN's II-XII intact bilaterally, no sensory deficits noted and gait normal Sensorium / Orientation: awake, alert, oriented to person, oriented to place and oriented to time Motor Exam: strength 5/5 throughout and strength abnormal Psych mental status grossly normal Skin no rashes or lesions noted and no wounds MDM MDM MDM Narrative Medical decision making narrative: IV line established on arrival. Patient received aspirin through the PEG tube 81 mg as he had already had 81 mg earlier today. Patient was given sublingual nitro that did improve his pain dramatically. Lab work-up was unremarkable. D- dimer was normal. At this point I discussed case with patient's principal data architect Dr. Dino Lopez. It was determined patient should be admitted for chemical stress testing and cardiac rule out. Case will be discussed with hospitalist to evaluate patient for admission Lab Data Attestation: I reviewed the patient's lab results. Labs: Laboratory Results - last 24 hr 10/30/21 10/30/21 10/30/21 12:15 12:15 12:15 WBC 4.4 RBC 4.38 L Hgb 13.5 Hct 38.8 L MCV 88.6 MCH 30.8 MCHC 34.8 RDW Std Deviation 49.7 H RDW Coeff of Lily 15.1 H Plt Count 164 MPV 8.2 Immature Gran % (Auto) 0.200 Neut % (Auto) 41.7 L Lymph % (Auto) 39.2 [place] % (Auto) 13.2 H Eos % (Auto) 5.2 H Baso % (Auto) 0.5 Absolute Neuts (auto) 1.8 L Absolute Lymphs (auto) 1.73 Nucleated RBC % 0 D-Dimer Quant (PE/DVT) 0.46 Sodium 125 L Potassium 4.5 Chloride 91 L Carbon Dioxide 28.0 Anion Gap 6 BUN 19 H Creatinine 0.17 L Estim Creat Clear Calc 456.32 Est GFR (MDRD) Af Amer 759 Est GFR (MDRD) Non-Af 627 BUN/Creatinine Ratio 112.4 H Glucose 108 H Calcium 9.2 Troponin I High Sens 8 Radiography Chest X-Ray - ED: 1 View Diagnostic Testing: Clinical Impression(s) from Imaging Studies Chest X-Ray 10/30/21 12:02 IMPRESSION: Stable pleural parenchymal changes at the left lung base. Tracheostomy tube is in situ. Electronically Signed: Mikey Angeles MD at 13:02 EDT , 1 view chest x-ray obtained interpreted by myself as increased markings left lung base otherwise no acute disease process. Radiology in agreement. Radiology did note the tracheostomy tube in place. EKG Initial EKG: Attestation: I personally reviewed and interpreted this EKG as follows: Comments: Atrially sensed and ventricularly paced rhythm with no acute ST segment changes Discharge Plan Triage Chief Complaint: Chest Pain ED Provider: Shanna Motley Dx/Rx/DC Orders Clinical Impression: Chest pain Prescriptions: No Action bacitracin 500 unit/gram packet 1 applic TOPICAL PRN PRN (Reason: Skin Cleansing) Chld Robitussin Cough-Chest DM 5-100 mg/5 mL liquid 10 ml feeding tube Q6H PRN (Reason: Muscle Spasticity) albuterol sulfate 2.5 mg /3 mL (0.083 %) solution for nebulization 2.5 mg inhalation Q4H PRN PRN (Reason: Sob &/Or Wheezing) Qty: 180 6RF zinc oxide 10 % ointment 1 applic topical BID-QID PRN (Reason: Skin Cleansing) sodium chloride 0.9 % solution for nebulization 1 ml inhalation Q8H PRN (Reason: thick secretions) nystatin 100,000 unit/gram cream 1 applic topical BID PRN (Reason: redness) albuterol sulfate [ProAir HFA] 90 mcg/actuation HFA aerosol inhaler 2 puff inhalation TID PRN (Reason: sob) morphine 20 mg/5 mL (4 mg/mL) solution 20 mg PO Q6H PRN (Reason: Pain) cholecalciferol (vitamin D3) 1,000 UNIT tablet 2,000 unit feeding tube DAILY sennosides 1 TABLET tablet 1 tab feeding tube BID PRN (Reason: Constipation) aspirin 81 MG tablet,chewable 81 mg feeding tube DAILY@0800 alum-mag hydroxide-simeth 30 ML suspension 20 ml PO PRN PRN (Reason: gastric distress) naproxen sodium 220 MG capsule 220 mg G-tube BID PRN PRN (Reason: Pain) triamcinolone acetonide 55 mcg aerosol,spray 1 spray NASAL DAILY PRN (Reason: ALLERGIES) cyclobenzaprine 10 MG tablet 10 mg feeding tube BID PRN PRN (Reason: Spasms) hydrocodone-acetaminophen 1 EACH tablet 1 tab feeding tube PRN PRN (Reason: Pain) Label Comments: take 1 tablet by mouth three times a day if needed simethicone 80 MG tablet 160 mg feeding tube TID PRN PRN (Reason: Gas) cetirizine [Zyrtec] 10 mg tablet 10 mg feeding tube QHS PRN (Reason: ALLERGIES) lansoprazole 30 mg tablet,disintegrat, delay rel 30 mg feeding tube DAILY Rx Instructions: Dissolve tablet in water to administer through PEG tube once daily. guaifenesin 200 mg/5 mL liquid 200 mg feeding tube Q4H PRN (Reason: cough) ferrous sulfate [Henry-In-Domonique] 15 mg iron (75 mg)/mL drops 1 ml PO BID valproic acid (as sodium salt) 250 mg/5 mL (5 mL) solution 500 mg feeding tube BID silver sulfadiazine 1 % Cream 1 applic TOPICAL DAILY PRN (Reason: redness) Rx Instructions: apply a 1.5 mm thickness polyethylene glycol 3350 [Miralax] 17 gram Powder In Packet 17 g PO BID PRN (Reason: Constipation) hydrocortisone acetate [Anucort-HC] 25 mg Suppository 25 mg IN DAILY PRN (Reason: Hemorrhoids) cephalexin 500 mg Capsule 500 mg PO Q8H triamcinolone acetonide [Nasacort] 55 mcg Aerosol,Jeremiah 2 spray INTRANASAL DAILY PRN (Reason: Congestion) Rx Instructions: administer into each nostril Enema 19-7 gram/118 mL Enema 118 ml IN DAILY PRN (Reason: Constipation) nystatin [Nyamyc] 100,000 unit/gram Powder 1 applic TOPICAL BID PRN (Reason: redness) glycerin (adult) Suppository 1 supp IN BID PRN (Reason: Constipation) glycerin (adult) [Fleet Glycerin (Adult)] Suppository 1 supp IN DAILY PRN (Reason: Constipation) silver nitrate applicators 75-25 % Stick 1 ea topical PRN PRN (Reason: tissue redness) Metamucil Sugar-Free (aspart) 3.4 gram/5.8 gram Powder 3 g PO TID PRN (Reason: Constipation) levothyroxine 25 mcg Capsule 25 mcg PO DAILY Nurtec ODT 75 mg Tablet,Disintegrating 75 mg PO QODAY PRN (Reason: Headache) sodium bicarbonate 8.4 % (1 mEq/mL) syringe 10 meq DAILY Rx Instructions: mix with lansoprazole glycopyrrolate 1 mg tablet 1.5 mg feeding tube BID Qty: 135 3RF buspirone 30 mg tablet 30 mg feeding tube BID Qty: 180 3RF Primary Care Provider: Tyesha Latif Referrals: Tyesha Latif MD [Primary Care Provider] - Disposition Disposition: Acute Care Hospital [facility]
[2021-10-30 12:25] LABS: Absolute Lymphocyte Count 1.73 X10^3/uL (0.83-4.51); Absolute Neutrophil Count 1.8 X10^3/uL (2.0-7.7); Basophil# 0.02 X10^3/uL; Basophil% 0.5 % (0-1); Eosinophil# 0.23 X10^3/uL; Eosinophils% 5.2 % (0-5); Hematocrit 38.8 % (40-54); Hemoglobin 13.5 g/dL (13.0-16.5); Lymphocyte # 1.73 X10^3/ul (0.83-4.51); Lymphocyte % 39.2 % (19-41); Mean Corp Hgb Conc 34.8 g/dL (32-36); Mean Corpuscular Hgb 30.8 pg (27.0-32.0); Mean Corpuscular Volume 88.6 fL (80-94); Mean Platelet Vol. 8.2 fl (6.2-12.0); Monocyte# 0.58 X10^3/uL; Monocyte% 13.2 % (0-10); NRBC Flagged by Analyzer 0 % (0-5); Neutrophil # 1.84 X10^3/uL (2.7-7.7); Neutrophil % 41.7 % (47-70); Platelet Count 164 K/mm3 (150-450); RBC Distribution Width CV 15.1 % (11.6-14.6); RBC Distribution Width SD 49.7 fl (35.1-43.9); Red Blood Count 4.38 M/mm3 (4.6-6.2); White Blood Count 4.4 K/mm3 (4.4-11.0)
[2021-10-30] MEDS: Nitroglycerin SL (ED/IMG/CATH) 0.4 MG TABLET SL ×3 (12:34→12:54)
[2021-10-30 12:36] LABS: D-Dimer Quantitative (DVT/PE) 0.46 FEU/ug/m (0.27-0.49)
[2021-10-30] MEDS: 0.9% Normal Saline 1,000 ML 150 ML IV (12:36)
[2021-10-30 12:40] LABS: Anion Gap 6 (5-15); BUN 19 mg/dL (7-18); BUN/Creat Ratio 112.4 RATIO (10-20); Calcium,Total 9.2 mg/dL (8.5-10.1); Chloride 91 mmol/L (98-107); Creatinine, Serum 0.17 mg/dL (0.70-1.30); EST Glomerular Filtration Rate 627 mL/min (>60); Est Glom Filt Rate - Afr Amer 759 mL/min (>60); Estimated Creatinine Clearance 456.32 ml/min; Glucose 108 mg/dL (74-106); Potassium 4.5 mmol/L (3.5-5.1); Sodium Level 125 mmol/L (136-145); Troponin-I HS (w/2H Reflex) 8 pg/mL (3.0-78.0)
[2021-10-30] MEDS: Aspirin 81 MG TAB.CHEW PO (12:51)
--- NOTE | 2021-10-30 14:09 | NURSING ---
DR YAMILET BRAVO
--- NOTE | 2021-10-30 14:10 | NURSING ---
PCU OBS YAMILET BASS
--- NOTE | 2021-10-30 14:15 | HP.PCM.HOS_ITS ---
HPI - General General Date of Admission: 10/30/21 Date of Service: 10/30/21 Chief Complaint: Atypical chest pain on and off for 1 year HPI Narrative DELIA RUIZ, is a 61 M with chronic debility, trach and PEG tube, on nighttime vent dependent while brought in to ED by EMS squad for chest pain intermittent on and off for 1 year but got more frequently for past few months. Patient has severe anxiety on buspirone, chronic back pain, upper extremity and lower extremity pain, generalized body aches. It is hard to obtain chest pain sobia acteristics and differentiation because of chronic pain. At most, patient feels localized chest pain, constant without particular exacerbating or relieving factor. In ED, nitroglycerin gave some relief. Patient not able to differentiate radiation to left arm while he has chronic bilateral upper e xtremity pain and numbness. Patient is bedbound/wheelchair because of quadriplegia, PEG tube and has tracheostomy and uses home ventilator at night. Patient also on multiple antianxiety medications and heavy dose of morphine for chronic pain. Has chronic Kelly catheter [facility] [place] Medical History Acute respiratory failure Anemia Anxiety Back pain Back pain Cardiology follow-up encounter Cardiomyopathy Carotid artery calcification Chest pain Chest pain Chronic hypoxemic respiratory failure Chronic low back pain Complete heart block Depression Diarrhea Dietary restriction Difficulty balancing Dilated cardiomyopathy Frequent headaches GERD (gastroesophageal reflux disease) Heart disease Hereditary progressive muscular dystrophy History of echocardiogram History of edema History of IBS History of urinary calculi Hypertension Injury of head and neck Irritable bowel syndrome Kidney stones Limb weakness MRSA (methicillin resistant 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) colonization Muscular dystrophy Non-smoker On home oxygen therapy Otitis interna PEG tube malfunction Pneumonia Pneumonia Pseudomonas pneumonia Shoulder pain Sick sinus syndrome SOB (shortness of breath) Thyroid disease Troponin I above reference range Uses wheelchair Ventilator dependent Home Medications cholecalciferol (vitamin D3) 25 mcg (1,000 unit) tablet 2,000 unit feeding tube DAILY SUPPLEMENT 07/01/14 [History Last Taken 10/30/21] aspirin 81 mg chewable tablet 81 mg feeding tube DAILY@0800 HEART HEATLTH 03/09/15 [History Last Taken 10/30/21] sennosides 8.6 mg tablet 1 tab feeding tube BID PRN Constipation 03/09/15 [History Last Taken 10/30/21] bacitracin 500 unit/gram topical packet 1 applic topical PRN PRN Skin Cleansing 07/05/17 [History Last Taken Unknown] aluminum-mag hydroxide-simethicone 400 mg-400 mg-40 mg/5 mL oral susp 20 ml PO PRN PRN gastric distress 07/07/18 [History Last Taken Unknown] naproxen sodium 220 mg capsule 220 mg G-tube BID PRN PRN Pain 07/07/18 [History Last Taken 10/29/21] cyclobenzaprine 10 mg tablet 10 mg feeding tube BID PRN PRN Spasms 07/10/18 [History Last Taken 10/29/21] hydrocodone 10 mg-acetaminophen 325 mg tablet 1 tab feeding tube PRN PRN Pain 07/10/18 [History Last Taken 10/30/21 09:30] dextromethorphan-guaifenesin 5 mg-100 mg/5 mL oral liquid (Child Robitussin Cough-Chest DM) 10 ml feeding tube Q6H PRN Muscle Spasticity 02/11/20 [History Last Taken Unknown] albuterol sulfate 2.5 mg (3 mL) inhalation Q4H PRN PRN Sob &/Or Wheezing #180 mL 09/27/20 [Rx Last Taken Unknown] sodium chloride 0.9 % for nebulization 1 ml inhalation Q8H PRN thick secretions 04/10/21 [History Last Taken Unknown] zinc oxide 10 % topical ointment 1 applic topical BID-QID PRN Skin Cleansing 04/10/21 [History Last Taken Unknown] albuterol sulfate 90 mcg/actuation aerosol inhaler (ProAir HFA) 2 puff inhalation TID PRN sob 08/06/21 [History Last Taken Unknown] ferrous sulfate 15 mg iron (75 mg)/mL oral drops (Henry-In-Domonique) 1 ml PO BID 08/13 [History Last Taken 10/30/21] guaifenesin 200 mg/5 mL oral liquid 200 mg feeding tube Q4H PRN cough 08/13/21 [History Last Taken Unknown] lansoprazole 30 mg delayed release,disintegrating tablet 30 mg feeding tube DAILY 08/13/21 [History Last Taken 10/30/21] valproic acid (as sodium salt) 250 mg/5 mL (5 mL) oral solution 500 mg feeding tube BID 08/13/21 [History Last Taken 10/30/21] glycopyrrolate 1 mg tablet 1.5 mg feeding tube BID GI #135 tabs 09/03/21 [Rx Last Taken 10/30/21] buspirone 30 mg tablet 30 mg feeding tube BID ANXIETY #180 tabs 09/10/21 [Rx Last Taken 10/30/21] cetirizine 10 mg tablet (Zyrtec) 10 mg feeding tube QHS PRN ALLERGIES 09/21/21 [History Last Taken Unknown] morphine 20 mg/5 mL (4 mg/mL) oral solution 20 mg PO Q6H PRN Pain 09/21/21 [History Last Taken 10/30/21 08:00] nystatin 100,000 unit/gram topical cream 1 applic topical BID PRN redness 09/21/21 [History Last Taken Unknown] cephalexin 500 mg capsule 500 mg feeding tube Q8H 10/30/21 [History Last Taken 10/30/21] glycerin (adult) 1 supp NM BID PRN Constipation 10/30/21 [History Last Taken 10/30/21] glycerin (adult) (Fleet Glycerin (Adult)) 1 supp NM DAILY PRN Constipation 10/30/21 [History Last Taken Unknown] polyethylene glycol 3350 17 gram oral powder packet (Miralax) 17 g PO BID PRN Constipation 10/30/21 [History Last Taken 10/29/21] psyllium husk (aspartame) 3.4 gram/5.8 gram oral powder (Metamucil Sugar-Free (aspartame)) 3 g PO TID PRN Constipation 10/30/21 [History Last Taken Unknown] sertraline 20 mg/mL oral concentrate 50 mg feeding tube QHS 10/30/21 [History Last Taken 10/29/21] sodium bicarbonate 8.4 % (1 mEq/mL) intravenous syringe 10 meq DAILY 10/30/21 [History Last Taken 10/30/21] Allergy/AdvReac Type Severity Reaction Status Date / Time No Known Allergies Allergy Verified 10/30/21 11:47 Family History Mother Heart disease Myocardial infarction Arthritis Depression Father Thyroid cancer Myocardial infarction Parkinson disease Arthritis Sister Thyroid cancer Arthritis Surgical History Gastrointestinal tube in situ History of esophagogastroduodenoscopy (EGD) History of hemorrhoidectomy History of release of tendon Presence of cardiac pacemaker Tracheostomy tube present (~2013) Social History Smoking Status: Never smoker second hand exposure: No alcohol intake: never substance use type: does not use caffeine: Yes Type: coffee what type of physical activity do you participate in: none ROS ROS Narrative 14 ROS is limited because of decreased functional status, anxiety, tracheostomy obtained from patient and . Constitutional: Reports fatigue and weakness. Denies fever. HEENT: Reports systems reviewed and no addt'l complaints, except as documented Respiratory/Chest: Chronic shortness of breath, on oxygen during daytime and vent at night. No change in breathing associated with chest pain. Gastrointestinal: PEG tube. Denies coffee ground emesis, hematemesis or vomiting Genitourinary: Chronic indwelling Kelly catheter. Musculoskeletal: Quadriplegia. No functional/purposeful movement of extremities. Contracture of lower extremity Neurologic: Denies seizure-like activity. Severe muscle weakness, wheelchair/bedbound. Psychiatric: Pain medication/morphine dependent. Constantly asking for morphine. skin: Mild redness over the skin. Skin intact. Endocrinology: Reports systems reviewed and no addt'l complaints, except as documented Hematologic/Lymphatic: Reports systems reviewed and no addt'l complaints, except as documented Rest 14 ROS are negative except as mentioned in HPI. Vital Signs Vital Signs Vital Signs: 10/30/21 11:43 10/30/21 12:34 10/30/21 12:43 Temperature 97.5 F L Temperature Source Temporal Pulse Rate 85 78 Respiratory Rate 28 H Respiratory Effort Normal Non-Labored Blood Pressure 159/92 H 156/84 H Blood Pressure Mean 114 Pulse Ox 97 Oxygen Delivery Method Room Air 10/30/21 12:44 10/30/21 12:48 10/30/21 12:54 Temperature Temperature Source Pulse Rate 88 81 Respiratory Rate Respiratory Effort Blood Pressure 135/82 H 130/82 H Blood Pressure Mean Pulse Ox Oxygen Delivery Method Room Air 10/30/21 12:59 10/30/21 13:54 10/30/21 14:11 Temperature 97.1 F L Temperature Source Temporal Pulse Rate 81 74 79 Respiratory Rate 15 20 H 20 H Respiratory Effort Blood Pressure 123/83 H 136/82 H 143/81 H Blood Pressure Mean 96 100 101 Pulse Ox 95 95 96 Oxygen Delivery Method Room Air Room Air 10/30/21 14:11 Temperature Temperature Source Pulse Rate 79 Respiratory Rate Respiratory Effort Blood Pressure Blood Pressure Mean Pulse Ox 96 Oxygen Delivery Method Weight Weight: 174 lb 2.643 oz Body Mass Index (BMI) 25.7 Physical Exam Narrative General: Alert, Oriented x3, Cooperative HEENT: Atraumatic, PERRLA, EOMI, Normocephalic Oral: No Gingival or Mucosal Lesions/ Ulcerations Neck: Tracheostomy present with a speech valve. Supple, No JVD, Negative Carotid Bruits Lungs: Air entry diminished in bilateral lung bases. No crepitation/rhonchi Cardiovascular: Left subclavicular pacemaker. Paced rhythm, Normal S1, Normal S2, No murmurs Abdomen: PEG tube. Bowel Sounds Present, Soft, Non Tender, Non-Distended : Spontaneously voiding urine. No renal angle tenderness. No suprapubic tenderness. Extremities: Mild chronic nonpitting edema, Capillary Refill Less than 3 Seconds Skin: Could not did not examine the back. Mild redness/blanching as per possible stage I decubitus ulcer. No skin tear/defect Musculoskeletal: No spontaneous movement of legs, spine, turning around or sitting up. ROM severely restricted at major joints of extremities and spine. No Tenderness to Palpation of Joints or Extremities Neurological: Cranial nerves II-XII grossly intact, DTR 2/4, muscle strength 3/5 at major joints. Psych/Mental Status: Flat affect. Pain medication dependent Results Lab / Micro Data Result Diagrams: 10/30/21 12:15 10/30/21 12:15 Labs: Laboratory Results - last 24 hr 10/30/21 12:15: WBC 4.4, RBC 4.38 L, Hgb 13.5, Hct 38.8 L, MCV 88.6, MCH 30.8, MCHC 34.8, RDW Std Deviation 49.7 H, RDW Coeff of Lily 15.1 H, Plt Count 164, MPV 8.2, Immature Gran % (Auto) 0.200, Neut % (Auto) 41.7 L, Lymph % (Auto) 39.2, [place] % (Auto) 13.2 H, Eos % (Auto) 5.2 H, Baso % (Auto) 0.5, Absolute Neuts (auto) 1.8 L, Absolute Lymphs (auto) 1.73, Nucleated RBC % 0 10/30/21 12:15: D-Dimer Quant (PE/DVT) 0.46 10/30/21 12:15: Sodium 125 L, Potassium 4.5, Chloride 91 L, Carbon Dioxide 28.0, Anion Gap 6, BUN 19 H, Creatinine 0.17 L, Estim Creat Clear Calc 456.32, Est GFR (MDRD) Af Amer 759, Est GFR (MDRD) Non-Af 627, BUN/Creatinine Ratio 112.4 H, Glucose 108 H, Calcium 9.2, Troponin I High Sens 8 Radiology Impression Chest X-Ray 10/30/21 12:02 IMPRESSION: Stable pleural parenchymal changes at the left lung base. Tracheostomy tube is in situ. Electronically Signed: Mikey Angeles MD at 13:02 EDT , Assessment & Plan Assessment/Plan (1) Chest pain: PLAN: 61-year-old male with history of muscular dystrophy, functionally dependent on wheelchair/bed was brought in for evaluation of chest pain 1. Atypical chest pain: Patient is being admitted in PCU as an observation. It is hard to ascertain typical chest pain characteristics/history because of confounding chronic pain, numbness of whole body, particularly upper extremities. First troponin negative. Twelve-lead EKG individually reviewed shows paced rhythm, no change from the previous EKG. If serial troponins negative, scheduled for pharmacological nuclear myocardial stress test. ED physician discussed with Dr. Lopez. 2. History of sick sinus syndrome and heart block status post pacemaker: History of sick sinus syndrome with bradycardia and arrhythmia. Also has left bundle branch block. Had pacemaker. Last echo in July 2021 reported grossly normal LV size with wall motion compatible with underlying pacemaker. EF 55%. RVSP 27 MAG. Trivial TR and PI. 3. History of chronic opioid dependence on morphine: Patient follows Dr. Lawrence. Watch out for opioid overdose/toxicity. 4. Chronic hypoxic respiratory failure: Patient uses oxygen during daytime and ventilator at night. 5. Hyponatremia: Patient sodium is 125. Patient has history of chronic hyponatremia Low sodium 135 in previous hospitalization in May 2017. IV fluid normal saline. 6. Elevated progressive muscular dystrophy, irritable bowel syndrome, definitely calculi: Home medication reconciliation done Living will/advanced directive/end of life care: Patient does not have living will or advanced directive. His is next to kin. After discussion of benefits/risks procedures involved with full code, DNR CC arrest and DNR CC, the patient opted for no CPR/chest compression. agrees with that. Patient already on ventilator and is tracheostomy and PEG tube. Patient does want artificial life support including intubation, tube feed, ventilator and/chest compression, central venous catheter, vasopressor and DC shock if needed Total time spent in [id number] encounter in discussion of advanced directive 16 minutes. Laboratory Results 10/30/21 12:15: WBC 4.4, RBC 4.38 L, Hgb 13.5, Hct 38.8 L, MCV 88.6, MCH 30.8, MCHC 34.8, RDW Std Deviation 49.7 H, RDW Coeff of Lily 15.1 H, Plt Count 164, MPV 8.2, Immature Gran % (Auto) 0.200, Neut % (Auto) 41.7 L, Lymph % (Auto) 39.2, [place] % (Auto) 13.2 H, Eos % (Auto) 5.2 H, Baso % (Auto) 0.5, Absolute Neuts (auto) 1.8 L, Absolute Lymphs (auto) 1.73, Nucleated RBC % 0 10/30/21 12:15: D-Dimer Quant (PE/DVT) 0.46 10/30/21 12:15: Sodium 125 L, Potassium 4.5, Chloride 91 L, Carbon Dioxide 28.0, Anion Gap 6, BUN 19 H, Creatinine 0.17 L, Estim Creat Clear Calc 456.32, Est GFR (MDRD) Af Amer 759, Est GFR (MDRD) Non-Af 627, BUN/Creatinine Ratio 112.4 H, Glucose 108 H, Calcium 9.2, Troponin I High Sens 8 10/30/21 12:15: Phosphorus 3.8, Magnesium 1.8 10/30/21 14:30: Troponin I High Sens 14 Charges/Coding Visit Charges OBSV E&M: 18123 Initial observation care L3 Procedures Hospitalists Procedures: 84600 Advncd Care Plan 30 Min
[2021-10-30 14:21] LABS: Reflex Troponin-HS? (from REC) Y
[2021-10-30 14:43] LABS: Magnesium 1.8 mg/dL (1.6-2.6); Phosphorus 3.8 mg/dL (2.5-4.9)
[2021-10-30 14:52] LABS: Troponin-I HS 14 pg/mL (3.0-78.0)
--- NOTE | 2021-10-30 15:57 | EKG12_ITS ---
Test Reason : AM EKG Blood Pressure : / mmHG Vent. Rate : 061 BPM Atrial Rate : 061 BPM P-R Int : 236 ms QRS Dur : 176 ms QT Int : 480 ms P-R-T Axes : 005 258 052 degrees QTc Int : 483 ms AV-Sequential Pacemaker Confirmed by HERMILO JOHNSON, [place] ([id number]), legal editor LUCIANA GARCIA ([id number]) on 11/01/2021 11:09:30 AM Referred By: MARTHA Confirmed By:INDIANA AKHTAR MD
[2021-10-30] MEDS: 0.9% Normal Saline 1,000 ML 100 ML IV (16:21)
[2021-10-30] MEDS: Enoxaparin 40 MG/0.4 ML Syringe SC (16:50)
[2021-10-30] MEDS: Morphine 2 MG/ML Syringe IV (16:50)
--- NOTE | 2021-10-30 19:01 | EKG12_ITS ---
Test Reason : CP Blood Pressure : / mmHG Vent. Rate : 082 BPM Atrial Rate : 082 BPM P-R Int : 162 ms QRS Dur : 192 ms QT Int : 460 ms P-R-T Axes : 024 241 040 degrees QTc Int : 537 ms AV-Sequential Pacemaker Confirmed by HERMILO JOHNSON, [place] ([id number]), online editor LUCIANA GARCIA ([id number]) on 11/01/2021 11:08:37 AM Referred By: YAMILET Confirmed By:INDIANA AKHTAR MD
[2021-10-30 19:37] LABS: Troponin-I HS 20 pg/mL (3.0-78.0)
[2021-10-30] MEDS: HYDROcodone Bitartrate/Apap 5/325 Tablet GT (20:24)
[2021-10-30] MEDS: Cephalexin 500 MG Capsule GT (20:24)
[2021-10-30] MEDS: morphine (oral solution) 10MG/0.5ML Syringe 20 MG GT (20:41)
[2021-10-30] MEDS: Ferrous Sulfate 300 MG/5 ML UDC 75 MG GT (21:59)
[2021-10-30] MEDS: Valproic Acid 250 MG/5 ML UDC 500 MG GT (21:59)
[2021-10-30] MEDS: busPIRone 15 MG TABLET 30 MG GT (21:59)
[2021-10-30] MEDS: Glycopyrrolate 1 MG TABLET 1.5 MG GT (22:00)
[2021-10-30] MEDS: Sertraline 50 MG Tablet GT (22:01)
[2021-10-30] MEDS: Senna/Docusate Sodium 1 Tablet 2 TABLET GT (22:01)
[2021-10-30] MEDS: 0.9% Saline Lock 10 ML Syringe IV (22:03)
[2021-10-31] MEDS: 0.9% Normal Saline 1,000 ML 100 ML IV (01:21)
[2021-10-31 03:00] VITALS: PULSE 60
[2021-10-31] MEDS: morphine (oral solution) 10MG/0.5ML Syringe 20 MG GT ×2 (03:25→10:32)
[2021-10-31] MEDS: Aspirin 81 MG TAB.CHEW GT (03:25)
[2021-10-31] MEDS: Cephalexin 500 MG Capsule GT ×2 (03:25→11:36)
[2021-10-31 03:40] VITALS: BP 135/70; PULSE 70; RESP 16; TEMP 36.3; O2SAT 95
--- NOTE | 2021-10-31 05:55 | EKG12_ITS ---
Test Reason : Blood Pressure : / mmHG Vent. Rate : 083 BPM Atrial Rate : 083 BPM P-R Int : 152 ms QRS Dur : 190 ms QT Int : 456 ms P-R-T Axes : 029 241 037 degrees QTc Int : 535 ms AV-Sequential Pacemaker Confirmed by HERMILO JOHNSON, [place] ([id number]), sound editor LUCIANA GARCIA ([id number]) on 11/01/2021 11:09:56 AM Referred By: ANI Confirmed By:INDIANA AKHTAR MD
[2021-10-31 06:10] VITALS: BP 165/84; PULSE 65; RESP 16; TEMP 36.4; O2SAT 100
[2021-10-31 06:21] LABS: Absolute Neutrophil Count 1.2 X10^3/uL (2.0-7.7); Basophil# 0.03 X10^3/uL; Basophil% 0.9 % (0-1); Eosinophil# 0.07 X10^3/uL; Eosinophils% 2.1 % (0-5); Hematocrit 34.7 % (40-54); Hemoglobin 11.9 g/dL (13.0-16.5); Lymphocyte % 50.3 % (19-41); Mean Corp Hgb Conc 34.3 g/dL (32-36); Mean Corpuscular Hgb 30.5 pg (27.0-32.0); Mean Platelet Vol. 8.4 fl (6.2-12.0); Monocyte# 0.36 X10^3/uL; Monocyte% 10.7 % (0-10); NRBC Flagged by Analyzer 0 % (0-5); Neutrophil % 35.4 % (47-70); Platelet Count 175 K/mm3 (150-450); RBC Distribution Width CV 15.2 % (11.6-14.6); RBC Distribution Width SD 49.6 fl (35.1-43.9); White Blood Count 3.4 K/mm3 (4.4-11.0)
[2021-10-31 06:45] LABS: International Normalized Ratio 1.1; Prothrombin Time (Protime)PT. 14.3 SECONDS (11.7-14.9)
[2021-10-31 06:54] LABS: Thyroid Stim Hormone (TSH) 2.66 uIU/mL (0.358-3.74)
[2021-10-31] MEDS: HYDROcodone Bitartrate/Apap 5/325 Tablet GT (07:00)
[2021-10-31 07:01] VITALS: PULSE 64
--- NOTE | 2021-10-31 10:04 | STRESSREP ---
Stress Test Report Date: 10-31-2021 Procedure: Pharmacologic stress nuclear imaging study Indications: Chest pain; conduction system disease/sick sinus syndrome; permanent pacemaker Consent: Per the patient Procedure: The patient underwent pharmacologic (Regadenoson 0.4mg ) evaluation with a peak heart rate of 105 beats per minute (66%predicted maximal heart rate) and a peak blood pressure of 138/80 mmHg. The baseline ECG demonstrated electronic ventricular paced rhythm. The peak pharmacologic ECG demonstrated electronic ventricular paced rhythm. There were no cardiac dysrhythmias pretest, during pharmacologic infusion, or recovery. There was no complaint of chest discomfort during pharmacologic infusion or recovery. The examination was discontinued secondary to completion of protocol. Impression: 1. Pharmacologic (Regadenoson) evaluation 2. Peak pharmacologic ECG with continued electronic ventricular paced rhythm. 3. There were no cardiac dysrhythmias pretest, during pharmacologic infusion, or recovery. 4. Nuclear images pending Myocardial perfusion imaging study: Technique: The patient was injected with millicuries of technetium 99m Cardiolite and subsequently rest SPECT Cardiolite nuclear imaging was obtained in the horizontal long, vertical long, and short axis views. The patient underwent pharmacologic (Regadenoson) evaluation with a peak heart rate of 105 beats per minute (66% percent predicted maximal heart rate) and a peak blood pressure of 138/80 mmHg. The patient was injected with millicuries of technetium 99m Cardiolite and subsequently stress SPECT Cardiolite nuclear imaging was obtained in the horizontal long, vertical long, and short axis views. A gated Cardiolite study at peak stress was obtained. Interpretation: Rest and stress SPECT Cardiolite nuclear imaging status post realignment and normalization (attenuation correction not performed) demonstrate the appearance of extracardiac/gastrointestinal tracer uptake near the inferior segments and diminished absence of myocardial perfusion/tracer uptake in portions of the mid to distal inferolateral segments which appear to be somewhat more prominent at rest as opposed to stress. There is end systolic thickening and brightening. The gated Cardiolite study demonstrates diminished myocardial thickening/inward wall motion. The reported LVEF is 30%. Impression: 1. Rest and stress SPECT Cardiolite nuclear imaging demonstrate myocardial perfusion changes appearing compatible with the effects of extracardiac/gastrointestinal tracer uptake and shifting soft tissue attenuation/artifact being more prominent at rest as opposed to stress, however, an area of previous myocardial injury/infarction involving portions of the inferolateral segments cannot necessarily be excluded, with no myocardial perfusion changes considered diagnostic for associated stress-induced myocardial ischemia. 2. The gated Cardiolite study reports an LVEF of 30%. This note was generated with citizenmadeation software. It may contain incorrect words, spelling, and punctuation that were not noted in checking the note before signing.
[2021-10-31 10:07] VITALS: O2SAT 99
[2021-10-31] MEDS: Valproic Acid 250 MG/5 ML UDC 500 MG GT (10:30)
[2021-10-31] MEDS: Cholecalciferol (VIT D3) 25 MCG TABLET (1,000 UNITS) 50 MCG GT (10:30)
[2021-10-31] MEDS: busPIRone 15 MG TABLET 30 MG GT (10:30)
[2021-10-31] MEDS: Senna/Docusate Sodium 1 Tablet 2 TABLET GT (10:30)
[2021-10-31] MEDS: Ferrous Sulfate 300 MG/5 ML UDC 75 MG GT (10:31)
[2021-10-31] MEDS: Lansoprazole 15 MG Capsule.DR 30 MG GT (10:31)
[2021-10-31] MEDS: Glycopyrrolate 1 MG TABLET 1.5 MG GT (10:31)
[2021-10-31 10:45] VITALS: BP 159/87; PULSE 70; RESP 16; TEMP 36.4; O2SAT 99
--- NOTE | 2021-10-31 10:45 | DCINST_ITS ---
Discharge Instructions Diet Discharge Diet: Low fat / Low cholesterol and 2000 mg Sodium Diet Activity Discharge Activity: May Not Drive Weight Bearing Status: Weight bearing as tolerated Dressing / Incision Call your doctor if you observe: Fever of 101 or Higher, Coldness, Increased Pain, Numbness or Tingling, Change in Color, Inability to urinate, Inability to have a bowel movement, Shortness of breath, Dizziness, Fainting spells, Swelling in the ankles, Chest pain, Prolonged hiccupping, Increased palpitations (irregular heartbeat), Calf discomfort and Uncontrolled pain Follow Up Care Test Results: Test results from this visit will be discussed in further detail at your follow- up appointment, if applicable. Discharge Plan Admission Admit Date/Time: 10/30/21 14:06 Primary Reason for Your Visit: Atypical chest pain, ACS ruled Attending Provider: Maximiliano Vazquez Primary Care Provider: Tyesha Latif Discharge Orders/Prescriptions Prescriptions: Continued bacitracin 500 unit/gram packet 1 applic TOPICAL PRN PRN (Reason: Skin Cleansing) Chld Robitussin Cough-Chest DM 5-100 mg/5 mL liquid 10 ml feeding tube Q6H PRN (Reason: Muscle Spasticity) albuterol sulfate 2.5 mg /3 mL (0.083 %) solution for nebulization 2.5 mg inhalation Q4H PRN PRN (Reason: Sob &/Or Wheezing) Qty: 180 6RF zinc oxide 10 % ointment 1 applic topical BID-QID PRN (Reason: Skin Cleansing) sodium chloride 0.9 % solution for nebulization 1 ml inhalation Q8H PRN (Reason: thick secretions) nystatin 100,000 unit/gram cream 1 applic topical BID PRN (Reason: redness) albuterol sulfate [ProAir HFA] 90 mcg/actuation HFA aerosol inhaler 2 puff inhalation TID PRN (Reason: sob) morphine 20 mg/5 mL (4 mg/mL) solution 20 mg PO Q6H PRN (Reason: Pain) cholecalciferol (vitamin D3) 1,000 UNIT tablet 2,000 unit feeding tube DAILY sennosides 1 TABLET tablet 1 tab feeding tube BID PRN (Reason: Constipation) aspirin 81 MG tablet,chewable 81 mg feeding tube DAILY@0800 alum-mag hydroxide-simeth 30 ML suspension 20 ml PO PRN PRN (Reason: gastric distress) naproxen sodium 220 MG capsule 220 mg G-tube BID PRN PRN (Reason: Pain) cyclobenzaprine 10 MG tablet 10 mg feeding tube BID PRN PRN (Reason: Spasms) hydrocodone-acetaminophen 1 EACH tablet 10 - 325 tab feeding tube PRN PRN (Reason: Pain) Label Comments: take 1 tablet by mouth three times a day if needed cetirizine [Zyrtec] 10 mg tablet 10 mg feeding tube QHS PRN (Reason: ALLERGIES) lansoprazole 30 mg tablet,disintegrat, delay rel 30 mg feeding tube DAILY Rx Instructions: Dissolve tablet in water to administer through PEG tube once daily. guaifenesin 200 mg/5 mL liquid 200 mg feeding tube Q4H PRN (Reason: cough) ferrous sulfate [Henry-In-Domonique] 15 mg iron (75 mg)/mL drops 1 ml PO BID valproic acid (as sodium salt) 250 mg/5 mL (5 mL) solution 500 mg feeding tube BID polyethylene glycol 3350 [Miralax] 17 gram Powder In Packet 17 g PO BID PRN (Reason: Constipation) cephalexin 500 mg Capsule 500 mg feeding tube Q8H glycerin (adult) Suppository 1 supp KS BID PRN (Reason: Constipation) glycerin (adult) [Fleet Glycerin (Adult)] Suppository 1 supp KS DAILY PRN (Reason: Constipation) Metamucil Sugar-Free (aspart) 3.4 gram/5.8 gram Powder 3 g PO TID PRN (Reason: Constipation) sodium bicarbonate 8.4 % (1 mEq/mL) syringe 10 meq DAILY Rx Instructions: mix with lansoprazole sertraline 20 mg/mL concentrate 50 mg feeding tube QHS glycopyrrolate 1 mg tablet 1.5 mg feeding tube BID Qty: 135 3RF buspirone 30 mg tablet 30 mg feeding tube BID Qty: 180 3RF Referrals / Follow Up: Tyesha Latif MD [Primary Care Provider] - Disposition Disposition (needs filled in before D/C Order can be placed): Home, Self Care
--- NOTE | 2021-10-31 12:52 | DS.PCM_ITS ---
Providers Date of Admission: 10/30/21 Date of Discharge: 10/31/21 Primary Care Physician: Dr. Tyesha Latif MD Reason For Visit: ATYPICAL CHEST PAIN Diagnosis Discharge Diagnosis (1) Chest pain: Status: Acute Code(s): R07.9 - Chest pain, unspecified Medications at Discharge Home Medications cholecalciferol (vitamin D3) 25 mcg (1,000 unit) tablet 2,000 unit feeding tube DAILY SUPPLEMENT 07/01/14 aspirin 81 mg chewable tablet 81 mg feeding tube DAILY@0800 HEART HEATLTH 03/09/15 sennosides 8.6 mg tablet 1 tab feeding tube BID PRN Constipation 03/09/15 bacitracin 500 unit/gram topical packet 1 applic topical PRN PRN Skin Cleansing 07/05/17 aluminum-mag hydroxide-simethicone 400 mg-400 mg-40 mg/5 mL oral susp 20 ml PO PRN PRN gastric distress 07/07/18 naproxen sodium 220 mg capsule 220 mg G-tube BID PRN PRN Pain 07/07/18 cyclobenzaprine 10 mg tablet 10 mg feeding tube BID PRN PRN Spasms 07/10/18 hydrocodone 10 mg-acetaminophen 325 mg tablet 10 - 325 tab feeding tube PRN PRN Pain 07/10/18 dextromethorphan-guaifenesin 5 mg-100 mg/5 mL oral liquid (Child Robitussin Cough-Chest DM) 10 ml feeding tube Q6H PRN Muscle Spasticity 02/11/20 albuterol sulfate 2.5 mg (3 mL) inhalation Q4H PRN PRN Sob &/Or Wheezing #180 mL 09/27/20 sodium chloride 0.9 % for nebulization 1 ml inhalation Q8H PRN thick secretions 04/10/21 zinc oxide 10 % topical ointment 1 applic topical BID-QID PRN Skin Cleansing 04/10/21 albuterol sulfate 90 mcg/actuation aerosol inhaler (ProAir HFA) 2 puff inhalation TID PRN sob 08/06/21 ferrous sulfate 15 mg iron (75 mg)/mL oral drops (Henry-In-Domonique) 1 ml PO BID 08/13/21 guaifenesin 200 mg/5 mL oral liquid 200 mg feeding tube Q4H PRN cough 08/13/21 lansoprazole 30 mg delayed release,disintegrating tablet 30 mg feeding tube DAILY 08/13/21 valproic acid (as sodium salt) 250 mg/5 mL (5 mL) oral solution 500 mg feeding tube BID 08/13/21 glycopyrrolate 1 mg tablet 1.5 mg feeding tube BID GI #135 tabs 09/03/21 buspirone 30 mg tablet 30 mg feeding tube BID ANXIETY #180 tabs 09/10/21 cetirizine 10 mg tablet (Zyrtec) 10 mg feeding tube QHS PRN ALLERGIES 09/21/21 morphine 20 mg/5 mL (4 mg/mL) oral solution 20 mg PO Q6H PRN Pain 09/21/21 nystatin 100,000 unit/gram topical cream 1 applic topical BID PRN redness 09/21/21 cephalexin 500 mg capsule 500 mg feeding tube Q8H 10/30/21 glycerin (adult) 1 supp MN BID PRN Constipation 10/30/21 glycerin (adult) (Fleet Glycerin (Adult)) 1 supp MN DAILY PRN Constipation 10/30/21 polyethylene glycol 3350 17 gram oral powder packet (Miralax) 17 g PO BID PRN Constipation 10/30/21 psyllium husk (aspartame) 3.4 gram/5.8 gram oral powder (Metamucil Sugar-Free (aspartame)) 3 g PO TID PRN Constipation 10/30/21 sertraline 20 mg/mL oral concentrate 50 mg feeding tube QHS 10/30/21 sodium bicarbonate 8.4 % (1 mEq/mL) intravenous syringe 10 meq DAILY 10/30/21 Hospital Course Summary of Care Provided Hospital Course: 61-year-old male with history of muscular dystrophy, functionally dependent on wheelchair/bed was brought in for evaluation of chest pain 1.? Atypical chest pain most likely musculoskeletal pain: Patient is being admitted in PCU as an observation.? It is hard to ascertain typical chest pain characteristics/history because of confounding chronic pain, numbness of whole body, particularly upper extremities.? Serial troponins are negative twelve-lead EKG individually reviewed shows paced rhythm, no change from the previous EKG. ACS ruled out.? Patient had pharmacological myocardial nuclear stress test and was negative. 2.? History of sick sinus syndrome and heart block status post pacemaker: History of sick sinus syndrome with bradycardia and arrhythmia.? Also has left bundle branch block.? Had pacemaker.? Last echo in July 2021 reported grossly normal LV size with wall motion compatible with underlying pacemaker.? EF 55%.? RVSP 27 MAG.? Trivial TR and PI. Home medications continued 3.? History of chronic opioid dependence on morphine: Watch out for opioid overdose/toxicity.? Follow with pain management Dr. Lawrence 4.? Chronic hypoxic respiratory failure: Patient uses oxygen during daytime and ventilator at night. 5.? Hyponatremia: Patient sodium is 125.? Patient has history of chronic hyponatremia. Low sodium 135 in previous hospitalization in May 2017.? IV fluid normal saline. Monitor serum sodium as an outpatient. No symptoms of acute hyponatremia including headache or change in mental status 6.? Elevated progressive muscular dystrophy, irritable bowel syndrome, definitely calculi: Home medication reconciliation done Living will/advanced directive/end of life care: Patient does not have living will or advanced directive.? His is next to kin.? After discussion of benefits/risks procedures involved with? full code, DNR CC arrest and DNR CC, the patient opted for no CPR/chest compression.? agrees with that.? Patient already on ventilator and is tracheostomy and PEG tube. Patient? does want artificial life support including intubation, tube feed, ventilator and/chest compression, central venous catheter, vasopressor and DC shock if needed ? Discharge medication reconciliation done.? Discharge follow-up instructions completed.? Discharge process discussed with the patient and? all questions were answered to patient's satisfaction.? Patient has home PT. Discharge Total time spent, exact 35 minutes on discharge meds reconciliation, examination,? coordination of care with nurses and ancillary staff, review of imaging and blood test and discussion with the patient? on follow-up instructions. Physical Exam Narrative Seen and examined on the day of discharge. Chest pain has resolved. Since patient had musculoskeletal chest pain. General: Alert, Oriented x3, Cooperative HEENT: Atraumatic, PERRLA, EOMI, Normocephalic Oral: No Gingival or Mucosal Lesions/ Ulcerations Neck: Tracheostomy present with a speech valve. Supple, No JVD, Negative Caroti d Bruits Lungs: Air entry diminished in bilateral lung bases. No crepitation/rhonchi Cardiovascular: Left subclavicular pacemaker. Paced rhythm, Normal S1, Normal S2, No murmurs Abdomen: PEG tube. Bowel Sounds Present, Soft, Non Tender, Non-Distended : Spontaneously voiding urine. No renal angle tenderness. No suprapubic tenderness. Extremities: Mild chronic nonpitting edema, Capillary Refill Less than 3 Seconds Skin: Mild redness/blanching as per possible stage I decubitus ulcer. No skin tear/defect Musculoskeletal: No spontaneous movement of legs, spine, turning around or sit ting up. ROM severely restricted at major joints of extremities and spine. No Tenderness to Palpation of Joints or Extremities Neurological: Cranial nerves II-XII grossly intact, DTR 2/4, muscle strength 3/5 at major joints. Psych/Mental Status: Flat affect. Pain medication dependent Weight / BMI Weight Weight: 165 lb 9.074 oz Body Mass Index (BMI) 24.3 ABG / Lab / Microbiology Data Result Diagrams: 10/31/21 06:13 10/30/21 12:15 Laboratory: Laboratory Results - last 24 hr 10/30/21 12:15: Phosphorus 3.8, Magnesium 1.8 10/30/21 14:30: Troponin I High Sens 14 10/30/21 18:20: Troponin I High Sens 20 10/31/21 06:13: WBC 3.4 L, RBC 3.90 L, Hgb 11.9 L, Hct 34.7 L, MCV 89.0, MCH 30.5, MCHC 34.3, RDW Std Deviation 49.6 H, RDW Coeff of Lily 15.2 H, Plt Count 175, MPV 8.4, Immature Gran % (Auto) 0.600, Neut % (Auto) 35.4 L, Lymph % (Auto) 50.3 H, [place] % (Auto) 10.7 H, Eos % (Auto) 2.1, Baso % (Auto) 0.9, Absolute Neuts (auto) 1.2 L, Absolute Lymphs (auto) 1.70, Nucleated RBC % 0 10/31/21 06:13: PT 14.3, INR 1.1 10/31/21 06:13: TSH 2.66 Radiography Diagnostic Testing: Radiology Impression Chest X-Ray 10/30/21 12:02 IMPRESSION: Stable pleural parenchymal changes at the left lung base. Tracheostomy tube is in situ. Electronically Signed: Mikey Angeles MD at 13:02 EDT , D/C Instructions Discharge Diet: Low fat / Low cholesterol and 2000 mg Sodium Diet Weight Bearing Status: Weight bearing as tolerated Call your doctor if you observe: Fever of 101 or Higher, Coldness, Increased Pain, Numbness or Tingling, Change in Color, Inability to urinate, Inability to have a bowel movement, Shortness of breath, Dizziness, Fainting spells, Swelling in the ankles, Chest pain, Prolonged hiccupping, Increased palpitations (irregular heartbeat), Calf discomfort and Uncontrolled pain Meaningful Use Info Meaningful Use Diagnoses (Choose all that apply): None applicable Discharge Plan Admission Admit Date/Time: 10/30/21 14:06 Primary Reason for Your Visit: Atypical chest pain, ACS ruled Attending Provider: Maximiliano Vazquez Primary Care Provider: Tyesha Latif Discharge Orders/Prescriptions Prescriptions: Continued bacitracin 500 unit/gram packet 1 applic TOPICAL PRN PRN (Reason: Skin Cleansing) Chld Robitussin Cough-Chest DM 5-100 mg/5 mL liquid 10 ml feeding tube Q6H PRN (Reason: Muscle Spasticity) albuterol sulfate 2.5 mg /3 mL (0.083 %) solution for nebulization 2.5 mg inhalation Q4H PRN PRN (Reason: Sob &/Or Wheezing) Qty: 180 6RF zinc oxide 10 % ointment 1 applic topical BID-QID PRN (Reason: Skin Cleansing) sodium chloride 0.9 % solution for nebulization 1 ml inhalation Q8H PRN (Reason: thick secretions) nystatin 100,000 unit/gram cream 1 applic topical BID PRN (Reason: redness) albuterol sulfate [ProAir HFA] 90 mcg/actuation HFA aerosol inhaler 2 puff inhalation TID PRN (Reason: sob) morphine 20 mg/5 mL (4 mg/mL) solution 20 mg PO Q6H PRN (Reason: Pain) cholecalciferol (vitamin D3) 1,000 UNIT tablet 2,000 unit feeding tube DAILY sennosides 1 TABLET tablet 1 tab feeding tube BID PRN (Reason: Constipation) aspirin 81 MG tablet,chewable 81 mg feeding tube DAILY@0800 alum-mag hydroxide-simeth 30 ML suspension 20 ml PO PRN PRN (Reason: gastric distress) naproxen sodium 220 MG capsule 220 mg G-tube BID PRN PRN (Reason: Pain) cyclobenzaprine 10 MG tablet 10 mg feeding tube BID PRN PRN (Reason: Spasms) hydrocodone-acetaminophen 1 EACH tablet 10 - 325 tab feeding tube PRN PRN (Reason: Pain) Label Comments: take 1 tablet by mouth three times a day if needed cetirizine [Zyrtec] 10 mg tablet 10 mg feeding tube QHS PRN (Reason: ALLERGIES) lansoprazole 30 mg tablet,disintegrat, delay rel 30 mg feeding tube DAILY Rx Instructions: Dissolve tablet in water to administer through PEG tube once daily. guaifenesin 200 mg/5 mL liquid 200 mg feeding tube Q4H PRN (Reason: cough) ferrous sulfate [Henry-In-Domonique] 15 mg iron (75 mg)/mL drops 1 ml PO BID valproic acid (as sodium salt) 250 mg/5 mL (5 mL) solution 500 mg feeding tube BID polyethylene glycol 3350 [Miralax] 17 gram Powder In Packet 17 g PO BID PRN (Reason: Constipation) cephalexin 500 mg Capsule 500 mg feeding tube Q8H glycerin (adult) Suppository 1 supp MN BID PRN (Reason: Constipation) glycerin (adult) [Fleet Glycerin (Adult)] Suppository 1 supp MN DAILY PRN (Reason: Constipation) Metamucil Sugar-Free (aspart) 3.4 gram/5.8 gram Powder 3 g PO TID PRN (Reason: Constipation) sodium bicarbonate 8.4 % (1 mEq/mL) syringe 10 meq DAILY Rx Instructions: mix with lansoprazole sertraline 20 mg/mL concentrate 50 mg feeding tube QHS glycopyrrolate 1 mg tablet 1.5 mg feeding tube BID Qty: 135 3RF buspirone 30 mg tablet 30 mg feeding tube BID Qty: 180 3RF Referrals / Follow Up: Tyesha Latif MD [Primary Care Provider] - Disposition Disposition (needs filled in before D/C Order can be placed): Home, Self Care Charges/Coding Visit Charges OBSV E&M: 18678 Observation care discharge
--- NOTE | 2021-10-31 13:03 | CASEMGMT ---
Pt is active with [facility] and clinicals faxed to them at this time. [facility] aware that pt is OBS and DORIS order not needed. SStmaximo CAMPBELL CM
--- NOTE | 2021-10-31 13:49 | PHA.DC.MR ---
Pharmacy Service has performed discharge medication reconciliation for this patient. The patient's discharge medication list was reviewed for discrepancies and discrepancies were resolved. Home Medications cholecalciferol (vitamin D3) 25 mcg (1,000 unit) tablet 2,000 unit feeding tube DAILY SUPPLEMENT 07/01/14 aspirin 81 mg chewable tablet 81 mg feeding tube DAILY@0800 HEART HEATLTH 03/09/15 sennosides 8.6 mg tablet 1 tab feeding tube BID PRN Constipation 03/09/15 bacitracin 500 unit/gram topical packet 1 applic topical PRN PRN Skin Cleansing 07/05/17 aluminum-mag hydroxide-simethicone 400 mg-400 mg-40 mg/5 mL oral susp 20 ml PO PRN PRN gastric distress 07/07/18 naproxen sodium 220 mg capsule 220 mg G-tube BID PRN PRN Pain 07/07/18 cyclobenzaprine 10 mg tablet 10 mg feeding tube BID PRN PRN Spasms 07/10/18 hydrocodone 10 mg-acetaminophen 325 mg tablet 10 - 325 tab feeding tube PRN PRN Pain 07/10/18 dextromethorphan-guaifenesin 5 mg-100 mg/5 mL oral liquid (Child Robitussin Cough-Chest DM) 10 ml feeding tube Q6H PRN Muscle Spasticity 02/11/20 albuterol sulfate 2.5 mg (3 mL) inhalation Q4H PRN PRN Sob &/Or Wheezing #180 mL 09/27/20 sodium chloride 0.9 % for nebulization 1 ml inhalation Q8H PRN thick secretions 04/10/21 zinc oxide 10 % topical ointment 1 applic topical BID-QID PRN Skin Cleansing 04/10/21 albuterol sulfate 90 mcg/actuation aerosol inhaler (ProAir HFA) 2 puff inhalation TID PRN sob 08/06/21 ferrous sulfate 15 mg iron (75 mg)/mL oral drops (Henry-In-Domonique) 1 ml PO BID 08/13/21 guaifenesin 200 mg/5 mL oral liquid 200 mg feeding tube Q4H PRN cough 08/13/21 lansoprazole 30 mg delayed release,disintegrating tablet 30 mg feeding tube DAILY 08/13/21 valproic acid (as sodium salt) 250 mg/5 mL (5 mL) oral solution 500 mg feeding tube BID 08/13/21 glycopyrrolate 1 mg tablet 1.5 mg feeding tube BID GI #135 tabs 09/03/21 buspirone 30 mg tablet 30 mg feeding tube BID ANXIETY #180 tabs 09/10/21 cetirizine 10 mg tablet (Zyrtec) 10 mg feeding tube QHS PRN ALLERGIES 09/21/21 morphine 20 mg/5 mL (4 mg/mL) oral solution 20 mg PO Q6H PRN Pain 09/21/21 nystatin 100,000 unit/gram topical cream 1 applic topical BID PRN redness 09/21/21 cephalexin 500 mg capsule 500 mg feeding tube Q8H 10/30/21 glycerin (adult) 1 supp ME BID PRN Constipation 10/30/21 glycerin (adult) (Fleet Glycerin (Adult)) 1 supp ME DAILY PRN Constipation 10/30/21 polyethylene glycol 3350 17 gram oral powder packet (Miralax) 17 g PO BID PRN Constipation 10/30/21 psyllium husk (aspartame) 3.4 gram/5.8 gram oral powder (Metamucil Sugar-Free (aspartame)) 3 g PO TID PRN Constipation 10/30/21 sertraline 20 mg/mL oral concentrate 50 mg feeding tube QHS 10/30/21 sodium bicarbonate 8.4 % (1 mEq/mL) intravenous syringe 10 meq DAILY 10/30/21
== END 2021-10-31 12:49 | disposition home or self-care (01) ==
LOC: ED 13:56 → PCU 14:35
PROVIDERS: Admitting Provider Internal Medicine; Emergency Provider Emergency Medicine; PCP Internal Medicine; Visit Provider Internal Medicine
DX: R07.89 Other chest pain (principal); G82.50 Quadriplegia, unspecified; Z93.0 Tracheostomy status; Z99.11 Dependence on respirator [ventilator] status; G71.09 Other specified muscular dystrophies; I42.0 Dilated cardiomyopathy; J96.11 Chronic respiratory failure with hypoxia; M79.606 Pain in leg, unspecified; F41.9 Anxiety disorder, unspecified; R53.81 Other malaise; Z79.82 Long term (current) use of aspirin; Z95.0 Presence of cardiac pacemaker; D64.9 Anemia, unspecified; I10 Essential (primary) hypertension; E87.1 Hypo-osmolality and hyponatremia; M54.9 Dorsalgia, unspecified; G89.29 Other chronic pain; K58.9 Irritable bowel syndrome, unspecified; I44.7 Left bundle-branch block, unspecified; Z79.899 Other long term (current) drug therapy; F32.A Depression, unspecified
CPT/HCPCS: 36415; 71045; 78452; 80048; 83735; 84100; 84443; 84484; 85025; 85379; 85610; 93005; 93017; 96361; 96372; 96374; 99218; 99285; A9500; J7030; A4216; G0378; J2785

== ENCOUNTER 2022-01-01 21:12 | Emergency (ER) | payer OTHER, MEDICAID, SELFPAY ==
[2022-01-01 21:14] VITALS: PULSE 76; RESP 17; TEMP 37.1; O2SAT 95; BMI 24.3
[2022-01-01 21:17] VITALS: BP 165/91
--- NOTE | 2022-01-01 22:30 | RAD_ITS ---
STUDY: X-RAY - ABDOMEN/PELVIS REASON FOR EXAM: Male, 61 years old. PEG tube. TECHNIQUE: A single AP view the abdomen was performed following the injection of GASTROGRAFIN through an indwelling PEG tube. COMPARISON: None. FINDINGS: Normal visualized lung bases. Pacer leads are seen overlying the heart The study demonstrates a PEG tube with its balloon in the body of the stomach. Contrast fills the gastric fundus. No leakage of contrast. Air and feces is seen throughout the colon. There is no evidence of obstruction. No free air. The visualized liver, spleen and kidneys are grossly normal in size and morphology. Normal soft tissue structures. Normal visualized osseous structures. RAD/Abdomen Single View IMPRESSION: A PEG tube in the body of the stomach without evidence of leakage. Electronically Signed: Tj Heart DO at 23:34 EDT ,
--- NOTE | 2022-01-01 23:24 | EDS_ITS ---
HPI History of Present Illness Chief Complaint: Other, Pain/Inj Informant: patient and spouse/S.O. Narrative Narrative: Patient history of muscular dystrophy wheelchair-bound chronic trach and PEG. He had a GJ tube placed 3 months ago on her intervention. He has continuous feeds through this. Earlier noted concerns of leakage around the tube. Spouse states she changed the dressing she deflated the balloon with 10 cc coming out she reinflated with 7 cc as recommended to her previously. She was to make sure tube was in place. PFSH PFS Medical History Acute respiratory failure Anemia Anxiety Back pain Back pain Cardiology follow-up encounter Cardiomyopathy Carotid artery calcification Chest pain Chest pain Chronic hypoxemic respiratory failure Chronic low back pain Complete heart block Depression Diarrhea Dietary restriction Difficulty balancing Dilated cardiomyopathy Frequent headaches GERD (gastroesophageal reflux disease) Heart disease Hereditary progressive muscular dystrophy History of echocardiogram History of edema History of IBS History of urinary calculi Hypertension Injury of head and neck Irritable bowel syndrome Kidney stones Limb weakness MRSA (methicillin resistant 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) colonization Muscular dystrophy Non-smoker On home oxygen therapy Otitis interna PEG tube malfunction Pneumonia Pneumonia Pseudomonas pneumonia Shoulder pain Sick sinus syndrome SOB (shortness of breath) Thyroid disease Troponin I above reference range Uses wheelchair Ventilator dependent Home Medications cholecalciferol (vitamin D3) 25 mcg (1,000 unit) tablet 2,000 unit feeding tube DAILY SUPPLEMENT 07/01/14 [History Last Taken 10/30/21] aspirin 81 mg chewable tablet 81 mg feeding tube DAILY@0800 HEART HEATLTH 03/09/15 [History Last Taken 10/30/21] sennosides 8.6 mg tablet 1 tab feeding tube BID PRN Constipation 03/09/15 [History Last Taken 10/30/21] bacitracin 500 unit/gram topical packet 1 applic topical PRN PRN Skin Cleansing 07/05/17 [History Last Taken Unknown] aluminum-mag hydroxide-simethicone 400 mg-400 mg-40 mg/5 mL oral susp 20 ml PO PRN PRN gastric distress 07/07/18 [History Last Taken Unknown] naproxen sodium 220 mg capsule 220 mg G-tube BID PRN PRN Pain 07/07/18 [History Last Taken 10/29/21] cyclobenzaprine 10 mg tablet 10 mg feeding tube BID PRN PRN Spasms 07/10/18 [History Last Taken 10/29/21] hydrocodone 10 mg-acetaminophen 325 mg tablet 10 - 325 tab feeding tube PRN PRN Pain 07/10/18 [History Last Taken 10/30/21 09:30] dextromethorphan-guaifenesin 5 mg-100 mg/5 mL oral liquid (Child Robitussin Cough-Chest DM) 10 ml feeding tube Q6H PRN Muscle Spasticity 02/11/20 [History Last Taken Unknown] albuterol sulfate 2.5 mg/3 mL (0.083 %) solution for nebulization 2.5 mg (3 mL) inhalation Q4H PRN PRN Sob &/Or Wheezing #180 mL 09/27/20 [Rx Last Taken Unknown] sodium chloride 0.9 % for nebulization 1 ml inhalation Q8H PRN thick secretions 04/10/21 [History Last Taken Unknown] zinc oxide 10 % topical ointment 1 applic topical BID-QID PRN Skin Cleansing 04/10/21 [History Last Taken Unknown] albuterol sulfate 90 mcg/actuation aerosol inhaler (ProAir HFA) 2 puff inhalation TID PRN sob 08/06/21 [History Last Taken Unknown] ferrous sulfate 15 mg iron (75 mg)/mL oral drops (Henry-In-Domonique) 1 ml PO BID 08/13/21 [History Last Taken 10/30/21] guaifenesin 200 mg/5 mL oral liquid 200 mg feeding tube Q4H PRN cough 08/13/21 [History Last Taken Unknown] valproic acid (as sodium salt) 250 mg/5 mL (5 mL) oral solution 500 mg feeding tube BID 08/13/21 [History Last Taken 10/30/21] glycopyrrolate 1 mg tablet 1.5 mg feeding tube BID GI #135 tabs 09/03/21 [Rx Last Taken 10/30/21] buspirone 30 mg tablet 30 mg feeding tube BID ANXIETY #180 tabs 09/10/21 [Rx Last Taken 10/30/21] cetirizine 10 mg tablet (Zyrtec) 10 mg feeding tube QHS PRN ALLERGIES 09/21/21 [History Last Taken Unknown] morphine 20 mg/5 mL (4 mg/mL) oral solution 20 mg PO Q6H PRN Pain 09/21/21 [History Last Taken 10/30/21 08:00] nystatin 100,000 unit/gram topical cream 1 applic topical BID PRN redness 09/21/21 [History Last Taken Unknown] cephalexin 500 mg capsule 500 mg feeding tube Q8H 10/30/21 [History Last Taken 10/30/21] glycerin (adult) 1 supp IA BID PRN Constipation 10/30/21 [History Last Taken 10/30/21] glycerin (adult) (Fleet Glycerin (Adult) rectal suppository) 1 supp IA DAILY PRN Constipation 10/30/21 [History Last Taken Unknown] polyethylene glycol 3350 17 gram oral powder packet (Miralax) 17 g PO BID PRN Constipation 10/30/21 [History Last Taken 10/29/21] psyllium husk (aspartame) 3.4 gram/5.8 gram oral powder (Metamucil Sugar-Free (aspartame)) 3 g PO TID PRN Constipation 10/30/21 [History Last Taken Unknown] sertraline 20 mg/mL oral concentrate 50 mg feeding tube QHS 10/30/21 [History Last Taken 10/29/21] lansoprazole 30 mg delayed release,disintegrating tablet See Rx Instructions .Route .COMPLEX #30 TABLETS 12/03/21 [Rx Last Taken Unknown] sodium bicarbonate 1 mEq/mL (8.4 %) intravenous solution See Rx Instructions .Route .COMPLEX #500 mL 12/03/21 [Rx Last Taken Unknown] Allergy/AdvReac Type Severity Reaction Status Date / Time No Known Allergies Allergy Verified 01/01/22 21:17 Family History Mother Heart disease Myocardial infarction Arthritis Depression Father Thyroid cancer Myocardial infarction Parkinson disease Arthritis Sister Thyroid cancer Arthritis Surgical History Gastrointestinal tube in situ History of esophagogastroduodenoscopy (EGD) History of hemorrhoidectomy History of release of tendon Presence of cardiac pacemaker Tracheostomy tube present (~2013) Social History Smoking Status: Never smoker second hand exposure: No alcohol intake: never substance use type: does not use caffeine: Yes Type: coffee what type of physical activity do you participate in: none ROS ROS ED Constitutional Constitutional ED: Denies chills, fever(s) or sweats ENT ENT ED: Denies sore throat Respiratory/Chest Respiratory/Chest: Denies cough Gastrointestinal Gastrointestinal: Denies abdominal pain, diarrhea, nausea or vomiting Neurologic Neurologic: Denies headache(s) EXAM Physical Exam Const Vital Signs: 01/01/22 21:14 01/01/22 21:17 Temperature 98.8 F Temperature Source Temporal Pulse Rate 76 Respiratory Rate 17 Blood Pressure 165/91 H Blood Pressure Mean 115 Pulse Ox 95 Oxygen Delivery Method Room Air Constitutional Narrative: In his motorized wheelchair, nontoxic General Appearance ED: NAD HEENT Reports moist mucous membranes normocephalic and atraumatic Eyes EOMs intact bilaterally Neck Neck Narrative: Trach tube intact clean, dry, intact General: Negative for tenderness Chest Wall Chest: Negative for tenderness Resp normal respiratory effort and normal air movement Effort and Inspection: symmetric chest movement; Negative for respiratory distress Cardio regular rate, regular rhythm and no murmurs Peripheral Pulses: pulses 2+ throughout GI normal to inspection, nondistended, normoactive bowel sounds and non-tender GI Narrative: GJ tube, feeding products inside the tube. There is no drainage actively around the orifice. No erythema. No indurations. Palpation: Negative for guarding or rebound tenderness present Extremity Extremity Narrative: Lower extremity contractions. General Extremety ED: Negative for edema or tenderness General Extremity: Negative for edema Neuro oriented x3 and no sensory deficits noted Sensorium / Orientation: awake and alert Skin no rashes or lesions noted and no wounds MDM MDM MDM Narrative Medical decision making narrative: There is no drainage no infections around the site. With manipulation by spouse, Gastrografin KUB obtained reviewed by myself notes positive position of tube in the gastrum. Spouse is reassured. She will continue care at home. Follow-up as an outpatient. All questions answered. Radiography Diagnostic Testing: Clinical Impression(s) from Imaging Studies KUB X-Ray 01/01/22 22:30 IMPRESSION: A PEG tube in the body of the stomach without evidence of leakage. Electronically Signed: Tj Heart DO at 23:34 EDT Reading Location ID and State: [address] [place] [address] Tel [phone], Service support , Discharge Plan Triage Chief Complaint: Other, Pain/Inj ED Provider: Omi Lockhart Dx/Rx/DC Orders Clinical Impression: Leaking PEG tube, Muscular dystrophy Instructions: Gastrostomy Feeding Tube Care ... Prescriptions: No Action bacitracin 500 unit/gram packet 1 applic TOPICAL PRN PRN (Reason: Skin Cleansing) Chld Robitussin Cough-Chest DM 5-100 mg/5 mL liquid 10 ml feeding tube Q6H PRN (Reason: Muscle Spasticity) albuterol sulfate 2.5 mg /3 mL (0.083 %) solution for nebulization 2.5 mg inhalation Q4H PRN PRN (Reason: Sob &/Or Wheezing) Qty: 180 6RF zinc oxide 10 % ointment 1 applic topical BID-QID PRN (Reason: Skin Cleansing) sodium chloride 0.9 % solution for nebulization 1 ml inhalation Q8H PRN (Reason: thick secretions) nystatin 100,000 unit/gram cream 1 applic topical BID PRN (Reason: redness) albuterol sulfate [ProAir HFA] 90 mcg/actuation HFA aerosol inhaler 2 puff inhalation TID PRN (Reason: sob) morphine 20 mg/5 mL (4 mg/mL) solution 20 mg PO Q6H PRN (Reason: Pain) cholecalciferol (vitamin D3) 1,000 UNIT tablet 2,000 unit feeding tube DAILY sennosides 1 TABLET tablet 1 tab feeding tube BID PRN (Reason: Constipation) aspirin 81 MG tablet,chewable 81 mg feeding tube DAILY@0800 alum-mag hydroxide-simeth 30 ML suspension 20 ml PO PRN PRN (Reason: gastric distress) naproxen sodium 220 MG capsule 220 mg G-tube BID PRN PRN (Reason: Pain) cyclobenzaprine 10 MG tablet 10 mg feeding tube BID PRN PRN (Reason: Spasms) hydrocodone-acetaminophen 1 EACH tablet 10 - 325 tab feeding tube PRN PRN (Reason: Pain) Label Comments: take 1 tablet by mouth three times a day if needed cetirizine [Zyrtec] 10 mg tablet 10 mg feeding tube QHS PRN (Reason: ALLERGIES) guaifenesin 200 mg/5 mL liquid 200 mg feeding tube Q4H PRN (Reason: cough) ferrous sulfate [Henry-In-Domonique] 15 mg iron (75 mg)/mL drops 1 ml PO BID valproic acid (as sodium salt) 250 mg/5 mL (5 mL) solution 500 mg feeding tube BID polyethylene glycol 3350 [Miralax] 17 gram Powder In Packet 17 g PO BID PRN (Reason: Constipation) cephalexin 500 mg Capsule 500 mg feeding tube Q8H glycerin (adult) Suppository 1 supp IA BID PRN (Reason: Constipation) glycerin (adult) [Fleet Glycerin (Adult)] Suppository 1 supp IA DAILY PRN (Reason: Constipation) Metamucil Sugar-Free (aspart) 3.4 gram/5.8 gram Powder 3 g PO TID PRN (Reason: Constipation) sertraline 20 mg/mL concentrate 50 mg feeding tube QHS glycopyrrolate 1 mg tablet 1.5 mg feeding tube BID Qty: 135 3RF buspirone 30 mg tablet 30 mg feeding tube BID Qty: 180 3RF lansoprazole 30 mg tablet,disintegrat, delay rel See Rx Instructions .ROUTE .COMPLEX Qty: 30 11RF Dose Instruction: DISSOLVE 1 TABLET IN WATER AND ADMINISTER THROUGH PEG TUBE ONCE DAILY Rx Instructions: DISSOLVE 1 TABLET IN WATER AND ADMINISTER THROUGH PEG TUBE ONCE DAILY sodium bicarbonate 1 mEq/mL (8.4 %) solution See Rx Instructions .ROUTE .COMPLEX Qty: 500 11RF Dose Instruction: COMBINE ONE LANSOPRAZOLE CAPSULE WITH 10 milliliters SODIUM BICARBONATE AND ADMINISTER THROUGH ENTERAL FEED TUBE Rx Instructions: COMBINE ONE LANSOPRAZOLE CAPSULE WITH 10 milliliters SODIUM BICARBONATE AND ADMINISTER THROUGH ENTERAL FEED TUBE Primary Care Provider: Tyesha Latif Referrals: Tyesha Latif MD [Primary Care Provider] - 5-7 Days Activity Restrictions/Additional Instructions: Confirmed GJ tube in place. Follow with your doctor. Disposition Disposition: Home, Self Care Discharge Date/Time: 01/01/22 23:55
== END 2022-01-01 23:55 | disposition home or self-care (01) ==
PROVIDERS: Emergency Provider Emergency Medicine; PCP Internal Medicine; Visit Provider Emergency Medicine
DX: K94.23 Gastrostomy malfunction (principal); G71.00 Muscular dystrophy, unspecified; I42.0 Dilated cardiomyopathy; I10 Essential (primary) hypertension; Z99.3 Dependence on wheelchair
CPT/HCPCS: 74018; 99281; 99282

== ENCOUNTER 2022-03-08 00:50 | Inpatient (IN) | payer OTHER, MEDICAID, SELFPAY ==
[2022-03-08] VITALS (22 sets, daily range): BP systolic 103–164; BP diastolic 55–92; PULSE 63–130; RESP 15–22; TEMP 36.6–37.7; O2SAT 93–100; BMI 30.7; BMI 26.9
--- NOTE | 2022-03-08 01:05 | EX.ED.DYSGE1 ---
HPI History of Present Illness Chief Complaint: Confusion Narrative Narrative: 61-year-old male here for confusion. History is provided by the patient's . She states patient has been more confused afternoon. Per the patient displayed intermittent confusion. Symptoms have been constant, severe without leading exacerbating features. The patient states he is NOT confused he just has severe back pain and would like morphine. Patient denies any bowel or bladder incontinence, denies any spinal manipulation, denies any saddle anesthesia, denies any new or worsening weakness or loss sensation lower extremities. No recent Kelly catheterization. Denies any chest pain, shortness of breath. Denies any chills. Denies any nausea or vomiting. Denies any changes to bowel or bladder habits. Denies any rashes or skin lesions. [facility] Medical History Acute respiratory failure Anemia Anxiety Back pain Back pain Cardiology follow-up encounter Cardiomyopathy Carotid artery calcification Chest pain Chest pain Chronic hypoxemic respiratory failure Chronic low back pain Complete heart block Depression Diarrhea Dietary restriction Difficulty balancing Dilated cardiomyopathy Frequent headaches GERD (gastroesophageal reflux disease) Heart disease Hereditary progressive muscular dystrophy History of echocardiogram History of edema History of IBS History of urinary calculi Hypertension Injury of head and neck Irritable bowel syndrome Kidney stones Limb weakness MRSA (methicillin resistant 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) colonization Muscular dystrophy Non-smoker On home oxygen therapy Otitis interna PEG tube malfunction Pneumonia Pneumonia Pseudomonas pneumonia Shoulder pain Sick sinus syndrome SOB (shortness of breath) Thyroid disease Troponin I above reference range Uses wheelchair Ventilator dependent Home Medications cholecalciferol (vitamin D3) 25 mcg (1,000 unit) tablet 2,000 unit feeding tube DAILY SUPPLEMENT 07/01/14 [History Last Taken 10/30/21] aspirin 81 mg chewable tablet 81 mg feeding tube DAILY@0800 HEART HEATLTH 03/09/15 [History Last Taken 10/30/21] sennosides 8.6 mg tablet 1 tab feeding tube BID PRN Constipation 03/09/15 [History Last Taken 10/30/21] bacitracin 500 unit/gram topical packet 1 applic topical PRN PRN Skin Cleansing 07/05/17 [History Last Taken Unknown] aluminum-mag hydroxide-simethicone 400 mg-400 mg-40 mg/5 mL oral susp 20 ml PO PRN PRN gastric distress 03/05/19 [History Last Taken Unknown] naproxen sodium 220 mg capsule 220 mg G-tube BID PRN PRN Pain 07/07/18 [History Last Taken 10/29/21] cyclobenzaprine 10 mg tablet 10 mg feeding tube BID PRN PRN Spasms 07/10/18 [History Last Taken 10/29/21] hydrocodone 10 mg-acetaminophen 325 mg tablet 10 - 325 tab feeding tube PRN PRN Pain 07/10/18 [History Last Taken 10/30/21 09:30] dextromethorphan-guaifenesin 5 mg-100 mg/5 mL oral liquid (Child Robitussin Cough-Chest DM) 10 ml feeding tube Q6H PRN Muscle Spasticity 02/11/20 [History Last Taken Unknown] albuterol sulfate 2.5 mg/3 mL (0.083 %) solution for nebulization 2.5 mg (3 mL) inhalation Q4H PRN PRN Sob &/Or Wheezing #180 mL 09/27/20 [Rx Last Taken Unknown] sodium chloride 0.9 % for nebulization 1 ml inhalation Q8H PRN thick secretions 04/10/21 [History Last Taken Unknown] zinc oxide 10 % topical ointment 1 applic topical BID-QID PRN Skin Cleansing 04/10/21 [History Last Taken Unknown] albuterol sulfate 90 mcg/actuation aerosol inhaler (ProAir HFA) 2 puff inhalation TID PRN sob 08/06/21 [History Last Taken Unknown] ferrous sulfate 15 mg iron (75 mg)/mL oral drops (Henry-In-Domonique) 1 ml PO BID 08/13/21 [History Last Taken 10/30/21] guaifenesin 200 mg/5 mL oral liquid 200 mg feeding tube Q4H PRN cough 08/13/21 [History Last Taken Unknown] valproic acid (as sodium salt) 250 mg/5 mL (5 mL) oral solution 500 mg feeding tube BID 08/13/21 [History Last Taken 10/30/21] glycopyrrolate 1 mg tablet 1.5 mg feeding tube BID GI #135 tabs 09/03/21 [Rx Last Taken 10/30/21] buspirone 30 mg tablet 30 mg feeding tube BID ANXIETY #180 tabs 09/10/21 [Rx Last Taken 10/30/21] morphine 20 mg/5 mL (4 mg/mL) oral solution 20 mg PO Q6H PRN Pain 09/21/21 [History Last Taken 10/30/21 08:00] nystatin 100,000 unit/gram topical cream 1 applic topical BID PRN redness 09/21/21 [History Last Taken Unknown] glycerin (adult) 1 supp MN BID PRN Constipation 10/30/21 [History Last Taken 10/30/21] glycerin (adult) (Fleet Glycerin (Adult) rectal suppository) 1 supp MN DAILY PRN Constipation 10/30/21 [History Last Taken Unknown] psyllium husk (aspartame) 3.4 gram/5.8 gram oral powder (Metamucil Sugar-Free (aspartame)) 3 g PO TID PRN Constipation 10/30/21 [History Last Taken Unknown] sertraline 20 mg/mL oral concentrate 50 mg feeding tube QHS 10/30/21 [History Last Taken 10/29/21] lansoprazole 30 mg delayed release,disintegrating tablet See Rx Instructions .Route .COMPLEX #30 TABLETS 12/03/21 [Rx Last Taken Unknown] sodium bicarbonate 1 mEq/mL (8.4 %) intravenous solution See Rx Instructions .Route .COMPLEX #500 mL 12/03/21 [Rx Last Taken Unknown] polyethylene glycol 3350 17 gram oral powder packet (Miralax) 17 g PO BID PRN Constipation #100 ea 01/17/22 [Rx Last Taken Unknown] Allergy/AdvReac Type Severity Reaction Status Date / Time No Known Allergies Allergy Verified 01/01/22 21:17 Family History Mother Heart disease Myocardial infarction Arthritis Depression Father Thyroid cancer Myocardial infarction Parkinson disease Arthritis Sister Thyroid cancer Arthritis Surgical History Gastrointestinal tube in situ History of esophagogastroduodenoscopy (EGD) History of hemorrhoidectomy History of release of tendon Presence of cardiac pacemaker Tracheostomy tube present (~2013) Social History Smoking Status: Never smoker second hand exposure: No alcohol intake: never substance use type: does not use caffeine: Yes Type: coffee what type of physical activity do you participate in: none ROS ROS ED ROS Narrative Constitutional: Endorses fever HEENT: Denies sore throat Neck: Denies neck pain Cardiovascular: Denies chest pain, syncope Respiratory: Denies shortness of breath GI: Denies nausea vomiting or abdominal pain : Denies changes in urinary habits Musculoskeletal: Endorses back pain (acute on chronic) Neurologic: Denies numbness weakness or loss of sensation, endorses confusion Skin denies rash EXAM Physical Exam Narrative Exam Narrative: Nursing triage notes reviewed, Vital signs reviewed Constitutional: please see mdm HENT: MMM, tracheostomy in place, no bleeding or redness noted. Eyes: Pupils equal round and reactive to light, Extraocular muscles intact Neck: No stridor, no JVD, full neck ROM Lungs: Clear to auscultation, No wheezing or rales. No increased work of breathing, no conversational dyspnea, no accessory muscle use, no nasal flaring. No respiratory distress noted Heart: Regular rate and rhythm, No murmurs, No rubs and No gallops, 2+ distal pulses (radial, femoral, posterior tibial) in all extremities Abdomen: Soft, there is no tenderness, rigidity, rebound or guarding, no obvious peritoneal signs, no palpable pulsatile abdominal masses, no auscultated abdominal bruit. G-tube in place, no redness cellulitic changes noted : No CVAT Back: No obvious above deformities of the CT or L-spine. No obvious lesions of the skin noted on the back. TTP over right paraspinal lumbar region Extremities: No edema, atrophy noted in bilateral lower extremities, Neuro: No focal neurological deficits, cranial nerves II through XII intact, 3/5 strength in bilateral lower extremities (baseline per patient and caregiver) intact sensation to light touch in all extremities, 2+ reflexes bilateral patella dens. Skin: No rash or lesions noted Const Vital Signs: 03/08/22 00:51 03/08/22 02:02 03/08/22 03:11 Temperature 99.9 F H 98.7 F Temperature Source Temporal Temporal Pulse Rate 115 H 114 H 112 H Respiratory Rate 20 H 20 H 19 H Blood Pressure 120/80 132/92 H 115/71 Blood Pressure Mean 93 105 85 Pulse Ox 97 95 93 Oxygen Delivery Method Trach Collar Mechanical Ventilator Mechanical Ventilator Oxygen Flow Rate (L/min) 6 03/08/22 03:49 03/08/22 05:09 03/08/22 05:11 Temperature 97.9 F Temperature Source Temporal Pulse Rate 112 H 81 Respiratory Rate 15 15 15 Blood Pressure 103/55 L Blood Pressure Mean 71 Pulse Ox 96 98 Oxygen Delivery Method Mechanical Ventilator Mechanical Ventilator Oxygen Flow Rate (L/min) 6 6 03/08/22 06:07 03/08/22 06:12 03/08/22 06:40 Temperature 98.2 F 98.2 F Temperature Source Temporal Temporal Pulse Rate 93 86 83 Respiratory Rate 22 H 15 17 Blood Pressure 116/69 116/69 118/69 Blood Pressure Mean 84 84 85 Pulse Ox 94 95 95 Oxygen Delivery Method Mechanical Ventilator Mechanical Ventilator Mechanical Ventilator Oxygen Flow Rate (L/min) 6 6 03/08/22 07:00 Temperature 98 F Temperature Source Temporal Pulse Rate 77 Respiratory Rate 15 Blood Pressure 120/70 Blood Pressure Mean 86 Pulse Ox 96 Oxygen Delivery Method Room Air Oxygen Flow Rate (L/min) MDM MDM MDM Narrative Medical decision making narrative: 61-year-old male here with concern for fever, confusion in the setting of muscular dystrophy complicated by respiratory failure status post trach and PEG tube placement, chronically ventilated, complete heart block, sick sinus syndrome status post pacemaker, chronic back pain, GERD, dilated cardiomyopathy. The patient was initially tachycardic, essentially febrile with a noncore temp of 99.9 (reported temp per at home). No obvious focal source of infection on exam. Patient only complains of back pain which is acute on chronic. He denied any back pain red flags such as bowel or bladder incontinence, saddle anesthesia, no IVDU, no urinary retention, new or worsening lower extremity weakness or loss sensation. The patient had a non-focal lower extremity neurologic exam to suggest epidural abscess. I did obtain a broad lab and imaging work-up to further elucidate etiology patients confusion and fever including a CT scan of the head, chest x-ray. Given initial borderline fever, tachycardia did obtain blood and urine cultures. I tested for COVID and flu. Given the patient's confusion I did obtain EKG troponin rule out myocardial ischemia as well as basic labs to rule out electrolyte abnormalities, metabolic abnormalities, dehydration, pancreatitis, UTI. Labs remarkable for elevations in troponin concerning for myocardial ischemia. EKG with paced rhythm, stable left bundle branch block with no change from prior. No evidence of myocardial ischemia on EKG. The patient is chest pain-free however he did have an elevated troponin this is likely type II demand ischemia. Labs are also remarkable for elevation in lactate, metabolic acidosis concerning for severe infection. Patient's bilirubin and liver enzymes were grossly elevated, increased from baseline. CT scan of patient's head was unremarkable. X-ray of the chest was unremarkable. Patient's COVID/flu swab was negative. The patient's urine did not show evidence of infection. After initial labs and images returned I did reevaluate the patient given his elevated lactate, tachycardia was concerned for severe infection. He remained chest pain-free. Abdominal exam remained benign. No upper quadrant tenderness or Morales sign on my exam. Not jaundiced. Clinically he is not presenting with any concern for hepatobiliary pathology. I did not give her 30 cc/kg bolus given the patient's last ejection fraction being less than 20% in the setting of dilated cardiomyopathy. I thought fluid overload was a bigger risk than an adequate fluid resuscitation I did give a small 500 cc bolus not start broad-spectrum antibiotics initially as I do not have a source of infection to treat at this time. Given the patient's elevated lactate, no source of infection, diagnostic uncertainty I did obtain further imaging of the patient's chest abdomen pelvis. Given his only subjective complaint of back pain I did obtain imaging of the thoracic and lumbar spine in the form of CT scan of the thoracic and lumbar spine. Lab Data Attestation: I reviewed the patient's lab results. Lab results narrative: CBC without leukocytosis, severe anemia, no thrombocytopenia. BMP with hyponatremia, no other significant electrode abnormalities, no anion gap, no DRAGAN LFTs with severe hyperbilirubinemia, elevations in liver enzymes, elevated alkaline phosphatase concerning for hepatobiliary pathology Troponin elevated concern for myocardial ischemia Lactic acid elevated concerning for severe infection, endorgan hypoperfusion Lipase is wnl indicating no pancreatic inflammation. COVID, flu negative Labs: Laboratory Results - last 24 hr 03/08/22 03/08/22 03/08/22 01:20 01:20 01:20 WBC Cancelled Corrected WBC Cancelled RBC Cancelled Hgb Cancelled Hct Cancelled MCV Cancelled MCH Cancelled MCHC Cancelled RDW Std Deviation Cancelled RDW Coeff of Lily Cancelled Plt Count Cancelled MPV Cancelled Immature Gran % (Auto) Cancelled Neut % (Auto) Cancelled Lymph % (Auto) Cancelled [place] % (Auto) Cancelled Eos % (Auto) Cancelled Baso % (Auto) Cancelled Absolute Neuts (auto) Cancelled Absolute Lymphs (auto) Cancelled Total Counted Cancelled Neutrophils % (Manual) Cancelled Band Neutrophils % Cancelled Lymphocytes % (Manual) Cancelled Monocytes % (Manual) Cancelled Eosinophils % (Manual) Cancelled Basophils % (Manual) Cancelled Metamyelocytes % Cancelled Myelocytes % Cancelled Promyelocytes % Cancelled Blast Cells % Cancelled Plasma Cell % (Manual) Cancelled Other Cells % Cancelled Nucleated RBC % Cancelled Nucleated RBCs/100 WBC Cancelled Differential Comment Cancelled Diff Path Review Cancelled Hypersegmented Neuts Cancelled Atypical Lymphocytes Cancelled Reactive Lymphocytes Cancelled Smudge Cells Cancelled Toxic Granulation Cancelled Toxic Vacuolation Cancelled Dohle Bodies Cancelled Nilda Rods Cancelled Platelet Estimate Cancelled Plt Morphology Comment Cancelled RBC Morphology Cancelled Polychromasia Cancelled Hypochromasia Cancelled Poikilocytosis Cancelled Basophilic Stippling Cancelled Anisocytosis Cancelled Microcytosis Cancelled Macrocytosis Cancelled Spherocytes Cancelled Sickle Cells Cancelled Target Cells Cancelled Tear Drop Cells Cancelled Ovalocytes Cancelled Stomatocytes Cancelled [place] Bodies Cancelled [place] Cells Cancelled Bite Cells Cancelled Crenated Cell Cancelled Acanthocytes (Spur) Cancelled Rouleaux Cancelled Schistocytes Cancelled Sodium 128 L Potassium 4.3 Chloride 95 L Carbon Dioxide 19.0 L Anion Gap 14 BUN 14 Creatinine 0.36 L Estim Creat Clear Calc 194.45 Est GFR (MDRD) Af Amer 321 Est GFR (MDRD) Non-Af 265 BUN/Creatinine Ratio 39.3 H Glucose 97 Lactic Acid Cancelled Calcium 9.2 Total Bilirubin 2.50 H AST 182 H ALT 153 H Alkaline Phosphatase 174 H Ammonia Troponin I High Sens 321 H* Total Protein 7.7 Albumin 3.2 Globulin 4.5 H Albumin/Globulin Ratio 0.7 L Lipase 37 L Urine Color Urine Clarity Urine pH Ur Specific [place] Urine Protein Urine Glucose (UA) Urine Ketones Urine Occult Blood Urine Nitrite Urine Bilirubin Urine Urobilinogen Ur Leukocyte Esterase Urine RBC Urine WBC Ur Squamous Epith Cells Amorphous Sediment Urine Bacteria Urine Mucus 03/08/22 03/08/22 03/08/22 01:50 02:05 02:05 WBC 10.7 Corrected WBC RBC 4.76 Hgb 15.4 Hct 42.8 MCV 89.9 MCH 32.4 H MCHC 36.0 RDW Std Deviation 41.4 RDW Coeff of Lily 12.6 Plt Count 239 MPV 7.7 Immature Gran % (Auto) 0.400 Neut % (Auto) 87.6 H Lymph % (Auto) 2.4 L [place] % (Auto) 9.4 Eos % (Auto) 0.0 Baso % (Auto) 0.2 Absolute Neuts (auto) 9.4 H Absolute Lymphs (auto) 0.26 L Total Counted Neutrophils % (Manual) Band Neutrophils % Lymphocytes % (Manual) Monocytes % (Manual) Eosinophils % (Manual) Basophils % (Manual) Metamyelocytes % Myelocytes % Promyelocytes % Blast Cells % Plasma Cell % (Manual) Other Cells % Nucleated RBC % 0 Nucleated RBCs/100 WBC Differential Comment Diff Path Review Hypersegmented Neuts Atypical Lymphocytes Reactive Lymphocytes Smudge Cells Toxic Granulation Toxic Vacuolation Dohle Bodies Nilda Rods Platelet Estimate Plt Morphology Comment RBC Morphology Polychromasia Hypochromasia Poikilocytosis Basophilic Stippling Anisocytosis Microcytosis Macrocytosis Spherocytes Sickle Cells Target Cells Tear Drop Cells Ovalocytes Stomatocytes [place] Bodies [place] Cells Bite Cells Crenated Cell Acanthocytes (Spur) Rouleaux Schistocytes Sodium Potassium Chloride Carbon Dioxide Anion Gap BUN Creatinine Estim Creat Clear Calc Est GFR (MDRD) Af Amer Est GFR (MDRD) Non-Af BUN/Creatinine Ratio Glucose Lactic Acid 3.4 H* Calcium Total Bilirubin AST ALT Alkaline Phosphatase Ammonia Troponin I High Sens Total Protein Albumin Globulin Albumin/Globulin Ratio Lipase Urine Color Yellow Urine Clarity Clear Urine pH 6.5 Ur Specific [place] 1.010 Urine Protein 15 H Urine Glucose (UA) Normal Urine Ketones 15 H Urine Occult Blood 10 H Urine Nitrite Negative Urine Bilirubin 1 H Urine Urobilinogen 4 H Ur Leukocyte Esterase Negative Urine RBC 0 SEEN Urine WBC 0 SEEN Ur Squamous Epith Cells 0 SEEN Amorphous Sediment RARE Urine Bacteria RARE Urine Mucus 0 SEEN 03/08/22 03/08/22 03/08/22 03:30 03:40 04:00 WBC Corrected WBC RBC Hgb Hct MCV MCH MCHC RDW Std Deviation RDW Coeff of Lily Plt Count MPV Immature Gran % (Auto) Neut % (Auto) Lymph % (Auto) [place] % (Auto) Eos % (Auto) Baso % (Auto) Absolute Neuts (auto) Absolute Lymphs (auto) Total Counted Neutrophils % (Manual) Band Neutrophils % Lymphocytes % (Manual) Monocytes % (Manual) Eosinophils % (Manual) Basophils % (Manual) Metamyelocytes % Myelocytes % Promyelocytes % Blast Cells % Plasma Cell % (Manual) Other Cells % Nucleated RBC % Nucleated RBCs/100 WBC Differential Comment Diff Path Review Hypersegmented Neuts Atypical Lymphocytes Reactive Lymphocytes Smudge Cells Toxic Granulation Toxic Vacuolation Dohle Bodies Nilda Rods Platelet Estimate Plt Morphology Comment RBC Morphology Polychromasia Hypochromasia Poikilocytosis Basophilic Stippling Anisocytosis Microcytosis Macrocytosis Spherocytes Sickle Cells Target Cells Tear Drop Cells Ovalocytes Stomatocytes [place] Bodies [place] Cells Bite Cells Crenated Cell Acanthocytes (Spur) Rouleaux Schistocytes Sodium Potassium Chloride Carbon Dioxide Anion Gap BUN Creatinine Estim Creat Clear Calc Est GFR (MDRD) Af Amer Est GFR (MDRD) Non-Af BUN/Creatinine Ratio Glucose Lactic Acid 2.6 H* Calcium Total Bilirubin AST ALT Alkaline Phosphatase Ammonia 46.0 H Troponin I High Sens 580 H* Total Protein Albumin Globulin Albumin/Globulin Ratio Lipase Urine Color Urine Clarity Urine pH Ur Specific [place] Urine Protein Urine Glucose (UA) Urine Ketones Urine Occult Blood Urine Nitrite Urine Bilirubin Urine Urobilinogen Ur Leukocyte Esterase Urine RBC Urine WBC Ur Squamous Epith Cells Amorphous Sediment Urine Bacteria Urine Mucus 03/08/22 03/08/22 06:22 06:42 WBC Corrected WBC RBC Hgb Hct MCV MCH MCHC RDW Std Deviation RDW Coeff of Lily Plt Count MPV Immature Gran % (Auto) Neut % (Auto) Lymph % (Auto) [place] % (Auto) Eos % (Auto) Baso % (Auto) Absolute Neuts (auto) Absolute Lymphs (auto) Total Counted Neutrophils % (Manual) Band Neutrophils % Lymphocytes % (Manual) Monocytes % (Manual) Eosinophils % (Manual) Basophils % (Manual) Metamyelocytes % Myelocytes % Promyelocytes % Blast Cells % Plasma Cell % (Manual) Other Cells % Nucleated RBC % Nucleated RBCs/100 WBC Differential Comment Diff Path Review Hypersegmented Neuts Atypical Lymphocytes Reactive Lymphocytes Smudge Cells Toxic Granulation Toxic Vacuolation Dohle Bodies Nilda Rods Platelet Estimate Plt Morphology Comment RBC Morphology Polychromasia Hypochromasia Poikilocytosis Basophilic Stippling Anisocytosis Microcytosis Macrocytosis Spherocytes Sickle Cells Target Cells Tear Drop Cells Ovalocytes Stomatocytes [place] Bodies [place] Cells Bite Cells Crenated Cell Acanthocytes (Spur) Rouleaux Schistocytes Sodium Potassium Chloride Carbon Dioxide Anion Gap BUN Creatinine Estim Creat Clear Calc Est GFR (MDRD) Af Amer Est GFR (MDRD) Non-Af BUN/Creatinine Ratio Glucose Lactic Acid 3.1 H* Calcium Total Bilirubin AST ALT Alkaline Phosphatase Ammonia Troponin I High Sens 508 H* Total Protein Albumin Globulin Albumin/Globulin Ratio Lipase Urine Color Urine Clarity Urine pH Ur Specific [place] Urine Protein Urine Glucose (UA) Urine Ketones Urine Occult Blood Urine Nitrite Urine Bilirubin Urine Urobilinogen Ur Leukocyte Esterase Urine RBC Urine WBC Ur Squamous Epith Cells Amorphous Sediment Urine Bacteria Urine Mucus Radiography Chest X-Ray - ED: Read by ED Physician Diagnostic Testing: Clinical Impression(s) from Imaging Studies Brain CT 03/08/22 01:33 IMPRESSION: undefined Chest X-Ray 03/08/22 01:33 IMPRESSION: Mild bibasilar atelectasis. Electronically Signed: Deonte Cruz MD at 2:51 EDT , Abdomen/Pelvis CT 03/08/22 03:18 IMPRESSION: undefined Chest CTA 03/08/22 03:18 IMPRESSION: undefined Lumbar Spine CT 03/08/22 03:18 IMPRESSION: No acute fracture of the lumbar spine. Electronically Signed: Deonte Cruz MD at 5:11 EDT Reading Location ID and State: [employer] / [place] Tel , Service support , Thoracic Spine CT 03/08/22 03:18 IMPRESSION: Compression fractures at T4, T6, T7 and T10 as described. The fractures are age indeterminate, but are new since the February 23, 2021 examination. A compression fracture at T11 is stable since the prior study. Electronically Signed: Deonte Cruz MD at 5:05 EDT Reading Location ID and State: [employer] / [place] Tel , Service support , I have personally reviewed the patient's chest x-ray. Chest x-ray is unremarkable for pulmonary edema, pneumothorax, pneumonia or focal cardiopulmonary abnormality. EKG Initial EKG: Attestation: I personally reviewed and interpreted this EKG as follows: Comments: EKG with paced rhythm, tachycardic rate, left bundle branch block, no STEMI, no significant change from prior Treatment and Re-Evaluation Narrative: Patient returned from CT scanner. Patient's repeat lactate was downtrending showing adequate resuscitation, troponin continue to elevate reevaluated his abdomen. Still nontender to palpation in the right upper quadrant. He was chest pain-free. Repeat an EKG showed no dynamic changes. Imaging remarkable for thoracic spine compression fractures. No other abnormality or source of infection could be identified in the chest abdomen or pelvis. Continued pain control with IV Dilaudid. Repeat lactate uptrending gave another liter of LR Repeat troponin downtrending. Discussed with hospitalist admission to continue resuscitation, to await blood cultures, continue to treat the patient's pain. Hospitalist (Dr. Goodman) accept the patient's case. Signed out to a.m. physician pending transfer to floor. Discharge Plan Triage Chief Complaint: Confusion ED Provider: Ck Gtz Dx/Rx/DC Orders Clinical Impression: Non-ST elevation IA (NSTEMI), Elevated lactic acid level, Tachycardia, Hyperbilirubinemia, Elevated liver enzymes, Hyponatremia, Compression fracture of thoracic spine, non-traumatic Prescriptions: No Action bacitracin 500 unit/gram packet 1 applic TOPICAL PRN PRN (Reason: Skin Cleansing) Chld Robitussin Cough-Chest DM 5-100 mg/5 mL liquid 10 ml feeding tube Q6H PRN (Reason: Muscle Spasticity) albuterol sulfate 2.5 mg /3 mL (0.083 %) solution for nebulization 2.5 mg inhalation Q4H PRN PRN (Reason: Sob &/Or Wheezing) Qty: 180 6RF zinc oxide 10 % ointment 1 applic topical BID-QID PRN (Reason: Skin Cleansing) sodium chloride 0.9 % solution for nebulization 1 ml inhalation Q8H PRN (Reason: thick secretions) nystatin 100,000 unit/gram cream 1 applic topical BID PRN (Reason: redness) albuterol sulfate [ProAir HFA] 90 mcg/actuation HFA aerosol inhaler 2 puff inhalation TID PRN (Reason: sob) morphine 20 mg/5 mL (4 mg/mL) solution 20 mg PO Q6H PRN (Reason: Pain) cholecalciferol (vitamin D3) 1,000 UNIT tablet 2,000 unit feeding tube DAILY sennosides 1 TABLET tablet 1 tab feeding tube BID PRN (Reason: Constipation) aspirin 81 MG tablet,chewable 81 mg feeding tube DAILY@0800 alum-mag hydroxide-simeth 30 ML suspension 20 ml PO PRN PRN (Reason: gastric distress) naproxen sodium 220 MG capsule 220 mg G-tube BID PRN PRN (Reason: Pain) cyclobenzaprine 10 MG tablet 10 mg feeding tube BID PRN PRN (Reason: Spasms) hydrocodone-acetaminophen 1 EACH tablet 10 - 325 tab feeding tube PRN PRN (Reason: Pain) Label Comments: take 1 tablet by mouth three times a day if needed guaifenesin 200 mg/5 mL liquid 200 mg feeding tube Q4H PRN (Reason: cough) ferrous sulfate [Henry-In-Domonique] 15 mg iron (75 mg)/mL drops 1 ml PO BID valproic acid (as sodium salt) 250 mg/5 mL (5 mL) solution 500 mg feeding tube BID glycerin (adult) Suppository 1 supp MN BID PRN (Reason: Constipation) glycerin (adult) [Fleet Glycerin (Adult)] Suppository 1 supp MN DAILY PRN (Reason: Constipation) Metamucil Sugar-Free (aspart) 3.4 gram/5.8 gram Powder 3 g PO TID PRN (Reason: Constipation) sertraline 20 mg/mL concentrate 50 mg feeding tube QHS glycopyrrolate 1 mg tablet 1.5 mg feeding tube BID Qty: 135 3RF buspirone 30 mg tablet 30 mg feeding tube BID Qty: 180 3RF lansoprazole 30 mg tablet,disintegrat, delay rel See Rx Instructions .ROUTE .COMPLEX Qty: 30 11RF Dose Instruction: DISSOLVE 1 TABLET IN WATER AND ADMINISTER THROUGH PEG TUBE ONCE DAILY Rx Instructions: DISSOLVE 1 TABLET IN WATER AND ADMINISTER THROUGH PEG TUBE ONCE DAILY sodium bicarbonate 1 mEq/mL (8.4 %) solution See Rx Instructions .ROUTE .COMPLEX Qty: 500 11RF Dose Instruction: COMBINE ONE LANSOPRAZOLE CAPSULE WITH 10 milliliters SODIUM BICARBONATE AND ADMINISTER THROUGH ENTERAL FEED TUBE Rx Instructions: COMBINE ONE LANSOPRAZOLE CAPSULE WITH 10 milliliters SODIUM BICARBONATE AND ADMINISTER THROUGH ENTERAL FEED TUBE polyethylene glycol 3350 [Miralax] 17 gram powder in packet 17 g PO BID PRN (Reason: Constipation) Qty: 100 2RF Primary Care Provider: Tyesha Latif Referrals: Tyesha Latif MD [Primary Care Provider] -
--- NOTE | 2022-03-08 01:33 | EKG12_ITS ---
Test Reason : CONFUSION Blood Pressure : / mmHG Vent. Rate : 105 BPM Atrial Rate : 127 BPM P-R Int : 000 ms QRS Dur : 178 ms QT Int : 412 ms P-R-T Axes : 000 245 053 degrees QTc Int : 544 ms Ventricular-paced rhythm Abnormal ECG Confirmed by CHARITY JOHNSON, RAMÓN ([id number]), metropolitan editor LUCIANA GARCIA ([id number]) on 03/11/2022 1:18:22 PM Referred By: ESTHER Confirmed By:RAMÓN NASH MD
--- NOTE | 2022-03-08 01:33 | CT_ITS ---
EXAM: CT brain without IV contrast. HISTORY: confusion TECHNIQUE: No intravenous contrast. A radiation dose optimization technique was used for this scan. COMPARISON: None. LIMITATIONS: None. BRAIN: Mild involutional change. Mild low attenuation bilaterally within the deep white matter, likely secondary to chronic microvascular ischemia. VENTRICLES: No hydrocephalus. EXTRA-AXIAL SPACES: No acute hemorrhage. CALVARIUM/SKULL BASE: No acute fracture. FACE/SINUSES: Partial opacification of the left ethmoid air cells and frontal sinus. SOFT TISSUES: Normal. OTHER: None. CONCLUSION: No acute intracranial abnormality. Electronically Signed: Deonte Cruz MD at 3:01 EDT , CT/Brain/Head without Contrast IMPRESSION: undefined
--- NOTE | 2022-03-08 01:33 | RAD_ITS ---
INDICATION: confusion, fever EXAMINATION: Frontal view of the chest COMPARISON: Chest x-ray from October 30, 2021. FINDINGS: Frontal view of the chest was obtained. Suboptimal inspiration which crowds the bronchovascular markings. A pacing device projects over the left hemithorax. The tracheostomy tube is similar in position. The cardiac silhouette is obscured by the upper abdomen. Mild bibasilar atelectasis. No confluent airspace disease. No pneumothorax. Gaseous distention of the stomach. RAD/Chest 1 View (Portable) IMPRESSION: Mild bibasilar atelectasis. Electronically Signed: Deonte Cruz MD at 2:51 EDT ,
[2022-03-08 01:55] LABS: Mucous, Urine 0 SEEN /hpf (<or=2+); Red Blood Cells-Urine 0 SEEN /hpf (0-5); Squamous Epithelial Cells - UA 0 SEEN /hpf (0-5); White Blood Cells 0 SEEN /hpf (0-5)
[2022-03-08 01:56] LABS: Color, Urine Yellow (Yellow); Glucose, Dipstick Normal (Normal); Ketone-Dipstick 15 mg/dl (Negative); Leukocyte Esterase-Dipstick Negative /ul (Negative); Nitrite-Dipstick Negative (Negative); Occult Blood-Urine 10 /ul (Negative); Protein-Dipstick 15 mg/dl (Negative); Urine Clarity Clear (Clear); Urine Urobilinogen 4 mg/dl (Normal); Urine pH 6.5 (5.0 - 8.0)
[2022-03-08 01:58] LABS: Urine Bilirubin Dipstick 1 mg/dL (Negative)
[2022-03-08 02:05] LABS: Amorphous Sediment RARE; Bacteria RARE /hpf (None Seen)
[2022-03-08] MEDS: Morphine 4 MG/ML Syringe IV ×2 (02:08→03:46)
[2022-03-08 02:10] LABS: Absolute Lymphocyte Count 0.26 X10^3/uL (0.83-4.51); Absolute Neutrophil Count 9.4 X10^3/uL (2.0-7.7); Basophil# 0.02 X10^3/uL; Basophil% 0.2 % (0-1); Hematocrit 42.8 % (40-54); Hemoglobin 15.4 g/dL (13.0-16.5); Lymphocyte # 0.26 X10^3/ul (0.83-4.51); Lymphocyte % 2.4 % (19-41); Mean Corpuscular Hgb 32.4 pg (27.0-32.0); Mean Corpuscular Volume 89.9 fL (80-94); Mean Platelet Vol. 7.7 fl (6.2-12.0); Monocyte# 1.01 X10^3/uL; Monocyte% 9.4 % (0-10); NRBC Flagged by Analyzer 0 % (0-5); Neutrophil # 9.36 X10^3/uL (2.7-7.7); Neutrophil % 87.6 % (47-70); POSITIVE DIFFERENTIAL YES; Platelet Count 239 K/mm3 (150-450); RBC Distribution Width CV 12.6 % (11.6-14.6); RBC Distribution Width SD 41.4 fl (35.1-43.9); Red Blood Count 4.76 M/mm3 (4.6-6.2); White Blood Count 10.7 K/mm3 (4.4-11.0)
[2022-03-08] MEDS: Acetaminophen 160 MG/5 ML UDC 1000 MG GT (02:10)
[2022-03-08 02:11] LABS: Differential Indicated SCAN CRITERIA MET
[2022-03-08 02:20] LABS: ALB/GLOB Ratio 0.7 RATIO (0.9-2.4); AST(SGOT) 182 U/L (15-37); Alanine Aminotransfer ALT/SGPT 153 U/L (16-61); Albumin, Serum 3.2 g/dL (3.2-5.0); Alkaline Phosphatase 174 U/L (45-117); Anion Gap 14 (5-15); BUN 14 mg/dL (7-18); BUN/Creat Ratio 39.3 RATIO (10-20); Calcium,Total 9.2 mg/dL (8.5-10.1); Chloride 95 mmol/L (98-107); Creatinine, Serum 0.36 mg/dL (0.70-1.30); EST Glomerular Filtration Rate 265 mL/min (>60); Est Glom Filt Rate - Afr Amer 321 mL/min (>60); Estimated Creatinine Clearance 194.45 ml/min; Globulin 4.5 g/dL (2.2-4.2); Glucose 97 mg/dL (74-106); Lipase 37 U/L (73-393); Potassium 4.3 mmol/L (3.5-5.1); Protein, Total 7.7 g/dL (6.4-8.2); Sodium Level 128 mmol/L (136-145); Troponin-I HS 321 pg/mL (3.0-78.0)
[2022-03-08 02:50] LABS: Lactic Acid 3.4 mmol/L (0.4-1.9)
--- NOTE | 2022-03-08 03:18 | CT_ITS ---
EXAM: CT Spine Lumbar W/O Contrast Injection HISTORY: back pain TECHNIQUE: CT Spine Lumbar W/O Contrast Injection. Coronal and sagittal reconstructions were obtained. A radiation dose optimization technique was used for the scan. COMPARISON: CT of the abdomen and pelvis from February 23, 2021. LIMITATIONS: None. FINDINGS: Diffuse osteopenia. No acute fracture of the lumbar spine. No spondylolisthesis. Multilevel anterior bridging osteophytes are identified. Degenerative changes are otherwise mild within the lumbar spine. Findings within the abdomen and pelvis are described in a separate report. CT/Spine Lumbar without Contrast IMPRESSION: No acute fracture of the lumbar spine. Electronically Signed: Deonte Cruz MD at 5:11 EDT ,
--- NOTE | 2022-03-08 03:18 | CT_ITS ---
EXAM: CT Spine Thoracic W/O Contrast Injection HISTORY: back pain TECHNIQUE: CT Spine Thoracic W/O Contrast Injection. A radiation dose optimization technique was used for this scan. Coronal and sagittal reconstructions were obtained. COMPARISON: CTA of the chest from February 20172020. LIMITATIONS: None. FINDINGS: A compression fracture at the superior endplate of T4 results in loss of height of 25%. No retropulsion. A similar compression fracture is T6 and T7. At T7 and the fracture is at the inferior endplate. A fracture of the superior endplate of T10 results in loss of height of 25-50%. No retropulsion. A compression fracture of T11 is similar to the T10 fracture. However, only the fracture T11 was present on the prior exam. The fractures at T4, T6, T7 and T10 are age indeterminate, but new since the prior study. Findings within the chest are described in a separate report. CT/Spine Thoracic without Contras IMPRESSION: Compression fractures at T4, T6, T7 and T10 as described. The fractures are age indeterminate, but are new since the February 23, 2021 examination. A compression fracture at T11 is stable since the prior study. Electronically Signed: Deonte Cruz MD at 5:05 EDT ,
--- NOTE | 2022-03-08 03:18 | CT_ITS ---
EXAM: CT abdomen and pelvis with contrast. HISTORY: fever, elevated lactate r/o intra-abdominal infxn TECHNIQUE: CT Abdomen And Pelvis W/ Contrast Injection. A radiation dose optimization technique was used for this scan. COMPARISON: CT of the abdomen and pelvis from February 23, 2021. LIMITATIONS: Motion artifact. LOWER CHEST: Bibasilar atelectasis. LIVER: Normal. GALLBLADDER: Normal. BILE DUCTS: The common duct is borderline dilated for age measuring 6 to 7 mm, but is similar in appearance to the prior exam. PANCREAS: Fatty atrophy. No peripancreatic inflammatory change. SPLEEN: Normal. ADRENAL GLANDS: Normal. KIDNEYS/URETERS/BLADDER: Several punctate nonobstructing renal stones bilaterally. Extrarenal pelves bilaterally. No obstructing ureteral stones or coco hydronephrosis. AORTA: Normal caliber. BOWEL/MESENTERY: A percutaneous GJ tube enters the body of the stomach and terminates in the proximal jejunum in the right upper quadrant. The majority of the small bowel is in the right side of the abdomen. Twisting of the mesentery in the right mid abdomen. No small bowel obstruction. No evidence of colitis. APPENDIX: Normal. PERITONEUM: Normal. REPRODUCTIVE ORGANS: Normal. BONES/SOFT TISSUES: No acute fracture. OTHER: None. CONCLUSION: No acute abnormality. Electronically Signed: Deonte Cruz MD at 5:34 EDT , CT/Abdomen/Pelvis W IV Cont ONLY IMPRESSION: undefined
--- NOTE | 2022-03-08 03:18 | CT_ITS ---
EXAM: CT pulmonary angiogram. HISTORY: fever unknown origin, tachycardia, elevated lactate TECHNIQUE: CTA Chest WO/W Contrast Injection A radiation dose optimization technique was used for this scan. Multiplanar reconstructions were obtained. 3-D postprocessing was performed. COMPARISON: None. LIMITATIONS: Motion artifact. LUNGS: Suboptimal inspiration. Atelectasis in the lower lobes bilaterally. No confluent airspace disease. TRACHEA: The tracheostomy tube terminates above the terrence. PULMONARY VESSELS: No pulmonary emboli identified. PLEURA: Normal. MEDIASTINUM: Normal. HEART: Normal. AORTA: No thoracic aortic aneurysm or dissection. UPPER ABDOMEN: Described in a separate report. BONES/SOFT TISSUES: Multilevel compression fractures in the thoracic spine described in the CT thoracic spine report. OTHER: None. CONCLUSION: Motion artifact. No pulmonary emboli identified. Bibasilar atelectasis. Multilevel compression fractures in the thoracic spine described in the CT thoracic spine report. Electronically Signed: Deonte Cruz MD at 5:23 EDT , CT/CTA Chest W/WO Contrast IMPRESSION: undefined
[2022-03-08] MEDS: Aspirin 325 MG Tablet PO (03:19)
[2022-03-08 04:10] LABS: Troponin-I HS 580 pg/mL (3.0-78.0)
--- NOTE | 2022-03-08 04:11 | EKG12_ITS ---
Test Reason : ELEV TROP Blood Pressure : / mmHG Vent. Rate : 099 BPM Atrial Rate : 099 BPM P-R Int : 126 ms QRS Dur : 192 ms QT Int : 434 ms P-R-T Axes : -21 -37 121 degrees QTc Int : 556 ms Atrial-sensed ventricular-paced rhythm Abnormal ECG Confirmed by CHARITY JOHNSON, RAMÓN ([id number]), video editor LUCIANA GARCIA ([id number]) on 03/11/2022 1:18:08 PM Referred By: ESTHER Confirmed By:RAMÓN NASH MD
[2022-03-08 04:12] LABS: Lactic Acid 2.6 mmol/L (0.4-1.9)
[2022-03-08] MEDS: HYDROmorphone 0.5 MG/0.5 ML SYRINGE IV ×2 (05:06→06:31)
--- NOTE | 2022-03-08 05:41 | US_ITS ---
STUDY: ABDOMINAL ULTRASOUND - RIGHT UPPER QUADRANT REASON FOR VISIT: Male, 61 years old elevated bilirubin . History of muscular dystrophy. She is TECHNIQUE: Ultrasound evaluation of the right upper quadrant was performed with real-time and static benitez-scale imaging. TECHNICAL QUALITY: Limited. Examination limited due to the patient?s condition. COMPARISON: Comparison is made with prior CT scan of the abdomen and pelvis done earlier in the day. FINDINGS: Liver: The liver measures 14.3 cm. There is normal echogenicity of the liver. The bile ducts are within normal limits. There is hepatic color flow. The direction of portal flow is hepatopetal. There is no demonstrated mass lesion. Gallbladder: Normal distended gallbladder. The gallbladder wall measures 2.8 mm. There is a negative sonographic Morales''s sign. There is no pericholecystic fluid. There are no gallstones. Common Bile Duct (C.B.D.): The common bile duct was not measured. The common bile duct was not seen due to overlying bowel gas. Pancreas: Normal size of the head, body and tail of the pancreas. There is normal echogenicity of the pancreas. There is no demonstrated pancreatic mass or cyst. Right Kidney: Normal size of the right kidney. The right kidney measures 10.1 cm x 4.8 cm x 4.6 cm. Normal renal cortex. The right cortex measures 1.8 cm. There is no demonstrated renal mass or cyst. There is no right hydronephrosis. A 6 mm nonobstructive calculus is seen in the right kidney. US/Gallbladder IMPRESSION: 6 mm nonobstructive calculus is seen in the right kidney. Electronically Signed: Mikey Angeles MD at 11:09 EDT ,
[2022-03-08 06:10] LABS: Reflex Lactate? Y
[2022-03-08] MEDS: Ketorolac 15 MG/ML Vial IV (06:33)
[2022-03-08 07:02] LABS: Lactic Acid 3.1 mmol/L (0.4-1.9)
[2022-03-08 07:07] LABS: Troponin-I HS 508 pg/mL (3.0-78.0)
--- NOTE | 2022-03-08 07:10 | NURSING ---
DR YOMI SANTANA
--- NOTE | 2022-03-08 07:23 | NURSING ---
[facility]
[2022-03-08] MEDS: Lactated Ringers 1,000 ML 999 ML IV ×2 (07:33→08:37)
[2022-03-08 07:46] LABS: Reflex Lactate? Y
--- NOTE | 2022-03-08 08:16 | PCM.HP.STD ---
HPI - General General Date of Admission: 03/08/22 Date of Service: 03/08/22 Chief Complaint: Altered mental status HPI Narrative DELIA LOCKE, is a 61 M with a history of low back pain, hypertension, muscular dystrophy with trach and PEG, GERD, dilated cardiomyopathy and sick sinus syndrome status post pacemaker who presented to [facility] 03/08/2022 with what was reported to be altered mental status. History primarily obtained from ED as was not at bedside and patient had difficulty answering my questions. Reportedly he had been more confused through yesterday intermittently and there was no known exacerbating factor. The patient and stated to the ED physician that he was not confused and just has severe back pain and would like morphine but disagreed with this. Upon arrival he was slightly tachycardic, no hypotension, reportedly had a 99.9 temperature at home however no temps recorded over 100.4. There is no obvious infection in the emergency department and he was razo scanned and multiple cultures obtained. UA not suggestive of UTI. Labs did reveal a lactic acidosis and troponins that peaked at 580. It was not necessarily felt that he was septic and he was not given the 30 cc/kg bolus because of a previous reduced ejection fraction. Empiric antibiotics were not started at that time. Upon evaluation in the ED he was resting comfortably and was alone. Difficulty answering questions, but did report he had some general abdominal pain, there was no specific pain around his PEG tube site. No rebound or guarding or rigidity, did not endorse 1 part of his abdomen to be more painful than the other and did not experience any severe pain. Denied any other complaints at the time of our exam. [facility] Medical History Acute respiratory failure Anemia Anxiety Back pain Back pain Cardiology follow-up encounter Cardiomyopathy Carotid artery calcification Chest pain Chest pain Chronic hypoxemic respiratory failure Chronic low back pain Complete heart block Depression Diarrhea Dietary restriction Difficulty balancing Dilated cardiomyopathy Frequent headaches GERD (gastroesophageal reflux disease) Heart disease Hereditary progressive muscular dystrophy History of echocardiogram History of edema History of IBS History of urinary calculi Hypertension Injury of head and neck Irritable bowel syndrome Kidney stones Limb weakness MRSA (methicillin resistant 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) colonization Muscular dystrophy Non-smoker On home oxygen therapy Otitis interna PEG tube malfunction Pneumonia Pneumonia Pseudomonas pneumonia Shoulder pain Sick sinus syndrome SOB (shortness of breath) Thyroid disease Troponin I above reference range Uses wheelchair Ventilator dependent Home Medications cholecalciferol (vitamin D3) 25 mcg (1,000 unit) tablet 2,000 unit feeding tube DAILY SUPPLEMENT 07/01/14 [History Last Taken 10/30/21] aspirin 81 mg chewable tablet 81 mg feeding tube DAILY@0800 HEART HEATLTH 03/09/15 [History Last Taken 10/30/21] sennosides 8.6 mg tablet 1 tab feeding tube BID PRN Constipation 03/09/15 [History Last Taken 10/30/21] bacitracin 500 unit/gram topical packet 1 applic topical PRN PRN Skin Cleansing 07/05/17 [History Last Taken Unknown] aluminum-mag hydroxide-simethicone 400 mg-400 mg-40 mg/5 mL oral susp 20 ml PO PRN PRN gastric distress 07/07/18 [History Last Taken Unknown] naproxen sodium 220 mg capsule 220 mg G-tube BID PRN PRN Pain 07/07/18 [History Last Taken 10/29/21] cyclobenzaprine 10 mg tablet 10 mg feeding tube BID PRN PRN Spasms 07/10/18 [History Last Taken 10/29/21] hydrocodone 10 mg-acetaminophen 325 mg tablet 10 - 325 tab feeding tube PRN PRN Pain 07/10/18 [History Last Taken 10/30/21 09:30] dextromethorphan-guaifenesin 5 mg-100 mg/5 mL oral liquid (Child Robitussin Cough-Chest DM) 10 ml feeding tube Q6H PRN Muscle Spasticity 02/11/20 [History Last Taken Unknown] albuterol sulfate 2.5 mg/3 mL (0.083 %) solution for nebulization 2.5 mg (3 mL) inhalation Q4H PRN PRN Sob &/Or Wheezing #180 mL 09/27/20 [Rx Last Taken Unknown] sodium chloride 0.9 % for nebulization 1 ml inhalation Q8H PRN thick secretions 04/10/21 [History Last Taken Unknown] zinc oxide 10 % topical ointment 1 applic topical BID-QID PRN Skin Cleansing 04/10/21 [History Last Taken Unknown] albuterol sulfate 90 mcg/actuation aerosol inhaler (ProAir HFA) 2 puff inhalation TID PRN sob 08/06/21 [History Last Taken Unknown] ferrous sulfate 15 mg iron (75 mg)/mL oral drops (Henry-In-Domonique) 1 ml PO BID 08/13/21 [History Last Taken 10/30/21] guaifenesin 200 mg/5 mL oral liquid 200 mg feeding tube Q4H PRN cough 08/13/21 [History Last Taken Unknown] valproic acid (as sodium salt) 250 mg/5 mL (5 mL) oral solution 500 mg feeding tube BID 08/13/21 [History Last Taken 10/30/21] glycopyrrolate 1 mg tablet 1.5 mg feeding tube BID GI #135 tabs 09/03/21 [Rx Last Taken 10/30/21] buspirone 30 mg tablet 30 mg feeding tube BID ANXIETY #180 tabs 09/10/21 [Rx Last Taken 10/30/21] morphine 20 mg/5 mL (4 mg/mL) oral solution 20 mg PO Q6H PRN Pain 09/21/21 [History Last Taken 10/30/21 08:00] nystatin 100,000 unit/gram topical cream 1 applic topical BID PRN redness 09/21/21 [History Last Taken Unknown] glycerin (adult) 1 supp MI BID PRN Constipation 10/30/21 [History Last Taken 10/30/21] glycerin (adult) (Fleet Glycerin (Adult) rectal suppository) 1 supp MI DAILY PRN Constipation 10/30/21 [History Last Taken Unknown] psyllium husk (aspartame) 3.4 gram/5.8 gram oral powder (Metamucil Sugar-Free (aspartame)) 3 g PO TID PRN Constipation 10/30/21 [History Last Taken Unknown] sertraline 20 mg/mL oral concentrate 50 mg feeding tube QHS 10/30/21 [History Last Taken 10/29/21] lansoprazole 30 mg delayed release,disintegrating tablet See Rx Instructions .Route .COMPLEX #30 TABLETS 12/03/21 [Rx Last Taken Unknown] sodium bicarbonate 1 mEq/mL (8.4 %) intravenous solution See Rx Instructions .Route .COMPLEX #500 mL 12/03/21 [Rx Last Taken Unknown] polyethylene glycol 3350 17 gram oral powder packet (Miralax) 17 g PO BID PRN Constipation #100 ea 01/17/22 [Rx Last Taken Unknown] Allergy/AdvReac Type Severity Reaction Status Date / Time No Known Allergies Allergy Verified 01/01/22 21:17 Family History Mother Heart disease Myocardial infarction Arthritis Depression Father Thyroid cancer Myocardial infarction Parkinson disease Arthritis Sister Thyroid cancer Arthritis Surgical History Gastrointestinal tube in situ History of esophagogastroduodenoscopy (EGD) History of hemorrhoidectomy History of release of tendon Presence of cardiac pacemaker Tracheostomy tube present (~2013) Social History Smoking Status: Never smoker second hand exposure: No alcohol intake: never substance use type: does not use caffeine: Yes Type: coffee what type of physical activity do you participate in: none ROS ROS Narrative Patient on trach and no family in the room, had difficulty communicating unclear if it was mental status or tracheostomy that he had difficulty speaking through. Did report some general abdominal discomfort with no localizing factor, denies chest pain or shortness of breath, reported he has been taking fluids and nutrition through his PEG tube. Was not able to verbalize any of the time of exam Vital Signs Vital Signs Vital Signs: 03/08/22 00:51 03/08/22 02:02 03/08/22 03:11 Temperature 99.9 F H 98.7 F Temperature Source Temporal Temporal Pulse Rate 115 H 114 H 112 H Respiratory Rate 20 H 20 H 19 H Blood Pressure 120/80 132/92 H 115/71 Blood Pressure Mean 93 105 85 Pulse Ox 97 95 93 Oxygen Delivery Method Trach Collar Mechanical Ventilator Mechanical Ventilator Oxygen Flow Rate (L/min) 6 03/08/22 03:49 03/08/22 05:09 03/08/22 05:11 Temperature 97.9 F Temperature Source Temporal Pulse Rate 112 H 81 Respiratory Rate 15 15 15 Blood Pressure 103/55 L Blood Pressure Mean 71 Pulse Ox 96 98 Oxygen Delivery Method Mechanical Ventilator Mechanical Ventilator Oxygen Flow Rate (L/min) 6 6 03/08/22 06:07 03/08/22 06:12 03/08/22 06:40 Temperature 98.2 F 98.2 F Temperature Source Temporal Temporal Pulse Rate 93 86 83 Respiratory Rate 22 H 15 17 Blood Pressure 116/69 116/69 118/69 Blood Pressure Mean 84 84 85 Pulse Ox 94 95 95 Oxygen Delivery Method Mechanical Ventilator Mechanical Ventilator Mechanical Ventilator Oxygen Flow Rate (L/min) 6 6 03/08/22 07:00 03/08/22 07:25 Temperature 98 F 98.1 F Temperature Source Temporal Temporal Pulse Rate 77 75 Respiratory Rate 15 15 Blood Pressure 120/70 119/59 L Blood Pressure Mean 86 79 Pulse Ox 96 96 Oxygen Delivery Method Room Air Oxygen Flow Rate (L/min) Weight Weight: 86.2 kg Body Mass Index (BMI) 30.7 Physical Exam Const alert Constitutional Narrative: Unable to accurately assess orientation given difficulty with communication HEENT normocephalic Eyes EOMs intact bilaterally Neck supple Neck Narrative: Trach in place Resp normal respiratory effort Resp Narrative: Transmitted upper airway sounds, no asymmetrical findings Cardio regular rate and regular rhythm GI GI Narrative: Normal to inspection, nondistended, soft to palpation, very mild tenderness diffusely, no rib but no guarding, no rigidity, no right upper quadrant localizing signs Extremity Extremity Narrative: Trace to 1+ bilateral lower extremity edema, legs crossed over 1 another and had to uncross them for patient as he felt something was weighing on him, did have slight erythema of the inner aspect of his right foot after uncrossing them which he said did feel better Neuro Neuro Narrative: Muscular dystrophy, no specific focal deficits appreciated Psych Psych Narrative: Attempts to be cooperative Results Lab / Micro Data Result Diagrams: 03/08/22 02:05 03/08/22 01:20 Labs: Laboratory Results - last 24 hr 03/08/22 01:20: WBC Cancelled, Corrected WBC Cancelled, RBC Cancelled, Hgb Cancelled, Hct Cancelled, MCV Cancelled, MCH Cancelled, MCHC Cancelled, RDW Std Deviation Cancelled, RDW Coeff of Lily Cancelled, Plt Count Cancelled, MPV Cancelled, Immature Gran % (Auto) Cancelled, Neut % (Auto) Cancelled, Lymph % (Auto) Cancelled, [place] % (Auto) Cancelled, Eos % (Auto) Cancelled, Baso % (Auto) Cancelled, Absolute Neuts (auto) Cancelled, Absolute Lymphs (auto) Cancelled, Total Counted Cancelled, Neutrophils % (Manual) Cancelled, Band Neutrophils % Cancelled, Lymphocytes % (Manual) Cancelled, Monocytes % (Manual) Cancelled, Eosinophils % (Manual) Cancelled, Basophils % (Manual) Cancelled, Metamyelocytes % Cancelled, Myelocytes % Cancelled, Promyelocytes % Cancelled, Blast Cells % Cancelled, Plasma Cell % (Manual) Cancelled, Other Cells % Cancelled, Nucleated RBC % Cancelled, Nucleated RBCs/100 WBC Cancelled, Differential Comment Cancelled, Diff Path Review Cancelled, Hypersegmented Neuts Cancelled, Atypical Lymphocytes Cancelled, Reactive Lymphocytes Cancelled, Smudge Cells Cancelled, Toxic Granulation Cancelled, Toxic Vacuolation Cancelled, Dohle Bodies Cancelled, Nilda Rods Cancelled, Platelet Estimate Cancelled, Plt Morphology Comment Cancelled, RBC Morphology Cancelled, Polychromasia Cancelled, Hypochromasia Cancelled, Poikilocytosis Cancelled, Basophilic Stippling Cancelled, Anisocytosis Cancelled, Microcytosis Cancelled, Macrocytosis Cancelled, Spherocytes Cancelled, Sickle Cells Cancelled, Target Cells Cancelled, Tear Drop Cells Cancelled, Ovalocytes Cancelled, Stomatocytes Cancelled, [place] Bodies Cancelled, Wilburn Cells Cancelled, Bite Cells Cancelled, Crenated Cell Cancelled, Acanthocytes (Spur) Cancelled, Rouleaux Cancelled, Schistocytes Cancelled 03/08/22 01:20: Sodium 128 L, Potassium 4.3, Chloride 95 L, Carbon Dioxide 19.0 L, Anion Gap 14, BUN 14, Creatinine 0.36 L, Estim Creat Clear Calc 194.45, Est GFR (MDRD) Af Amer 321, Est GFR (MDRD) Non-Af 265, BUN/Creatinine Ratio 39.3 H, Glucose 97, Calcium 9.2, Total Bilirubin 2.50 H, AST 182 H, ALT 153 H, Alkaline Phosphatase 174 H, Troponin I High Sens 321 H*, Total Protein 7.7, Albumin 3.2, Globulin 4.5 H, Albumin/Globulin Ratio 0.7 L, Lipase 37 L 03/08/22 01:20: Lactic Acid Cancelled 03/08/22 01:50: Urine Color Yellow, Urine Clarity Clear, Urine pH 6.5, Ur Specific Bentley 1.010, Urine Protein 15 H, Urine Glucose (UA) Normal, Urine Ketones 15 H, Urine Occult Blood 10 H, Urine Nitrite Negative, Urine Bilirubin 1 H, Urine Urobilinogen 4 H, Ur Leukocyte Esterase Negative, Urine RBC 0 SEEN, Urine WBC 0 SEEN, Ur Squamous Epith Cells 0 SEEN, Amorphous Sediment RARE, Urine Bacteria RARE, Urine Mucus 0 SEEN 03/08/22 02:05: Lactic Acid 3.4 H* 03/08/22 02:05: WBC 10.7, RBC 4.76, Hgb 15.4, Hct 42.8, MCV 89.9, MCH 32.4 H, MCHC 36.0, RDW Std Deviation 41.4, RDW Coeff of Lily 12.6, Plt Count 239, MPV 7.7, Immature Gran % (Auto) 0.400, Neut % (Auto) 87.6 H, Lymph % (Auto) 2.4 L, [place] % (Auto) 9.4, Eos % (Auto) 0.0, Baso % (Auto) 0.2, Absolute Neuts (auto) 9.4 H, Absolute Lymphs (auto) 0.26 L, Nucleated RBC % 0 03/08/22 03:30: Lactic Acid 2.6 H* 03/08/22 03:40: Troponin I High Sens 580 H* 03/08/22 04:00: Ammonia 46.0 H 03/08/22 06:22: Lactic Acid 3.1 H* 03/08/22 06:42: Troponin I High Sens 508 H* Micro: Microbiology 03/08/22 02:00 Nasal Secretion SARS-CoV-2 & FLU Antigen (Rapid) - Final Radiology Impression Brain CT 03/08/22 01:33 IMPRESSION: undefined Chest X-Ray 03/08/22 01:33 IMPRESSION: Mild bibasilar atelectasis. Electronically Signed: Deonte Cruz MD at 2:51 EDT , Abdomen/Pelvis CT 03/08/22 03:18 IMPRESSION: undefined Chest CTA 03/08/22 03:18 IMPRESSION: undefined Lumbar Spine CT 03/08/22 03:18 IMPRESSION: No acute fracture of the lumbar spine. Electronically Signed: Deonte Cruz MD at 5:11 EDT , Thoracic Spine CT 03/08/22 03:18 IMPRESSION: Compression fractures at T4, T6, T7 and T10 as described. The fractures are age indeterminate, but are new since the February 23, 2021 examination. A compression fracture at T11 is stable since the prior study. Electronically Signed: Deonte Cruz MD at 5:05 EDT , Assessment & Plan Assessment/Plan (1) Altered mental status: (2) Elevated lactic acid level: (3) Elevated liver enzymes: (4) Hyponatremia: (5) Compression fracture of thoracic spine, non-traumatic: (6) Non-ST elevation PR (NSTEMI): (7) Muscular dystrophy: (8) Chronic hypoxemic respiratory failure: (9) Presence of cardiac pacemaker: PLAN: Plan Mr. Locke #Altered mental status Unable to perform full mental status exam given his difficulty with communication not at bedside, will speak with her again when she returns Does have elevated ammonia, will add lactulose Additionally may be dehydrated given all cell lines have increased, will start gentle hydration given heart failure history CT brain with mild involutional change, likely chronic microvascular ischemia Will obtain COVID #Lactic acidosis No source of infection found at this time but does have elevated LFTs and right upper quadrant ultrasound pending Was mildly tachycardic on presentation but that resolved independently and was never hypotensive May be component of dehydration Will begin hydration Trend lactic acid Did have razo scan from brain down through abdomen pelvis CT with no identified source of infection UA unremarkable #Muscular dystrophy with 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 Not hypoxic at this time, continue current vent settings Will consult dietitian given PEG and tube feeds Continue cyclobenzaprine #NSTEMI Likely type II Peaked at 580, has trended down to 508 Do not think that current presentation is the result of a cardiac event, no chest pain had been reported, no changes in breathing CTA with no PE #Chronic hyponatremia Will trend, if does not improve some with fluids or if worsens will obtain further work-up #Elevated transaminases Unclear etiology Has some generalized abdominal pain, not localized to related upper quadrant CT abdomen pelvis with no remarkable findings, did have a borderline bile duct but reported it was stable from previous exams No rebound, guarding, rigidity Awaiting right upper quadrant ultrasound Lipase 37 Will hold valproic acid given elevated ammonia and elevated transaminases, will clarify what this is for, may need to substitute medication #metabolic acidosis Borderline anion gap at 14, likely due to elevated lactic acid Will trend labs #Sick sinus syndrome status post pacemaker Supportive care #History of cardiomyopathy Previously had reduced EF per report but most recent echo 07/18/2021 showed an EF of 55% with RVSP estimated to be 27 and trains Doppler flow suggestive of impaired relaxation of the left ventricle No indication to get repeat echo at this time #Compression fractures Supportive care Will clarify home pain medication regimen #DVT ppx: Mandi Goodman MD Charges/Coding Visit Charges Inpatient E&M: 48609 Init Hosp L2
[2022-03-08] MEDS: Morphine 2 MG/ML Syringe IV ×4 (09:57→19:00)
[2022-03-08] MEDS: 0.9% Normal Saline 1,000 ML 50 ML IV (09:57)
[2022-03-08] MEDS: Glycopyrrolate 1 MG TABLET 1.5 MG GT ×2 (10:39→21:04)
[2022-03-08] MEDS: Lansoprazole 15 MG Capsule.DR 30 MG GT (10:39)
[2022-03-08] MEDS: busPIRone 15 MG TABLET 30 MG GT ×2 (10:39→21:02)
[2022-03-08] MEDS: Enoxaparin 40 MG/0.4 ML Syringe SC (10:40)
[2022-03-08] MEDS: Ferrous Sulfate 300 MG/5 ML UDC 75 MG PO (10:41)
[2022-03-08] MEDS: Lactulose 20 GM/30 ML UDC GT (10:41)
--- NOTE | 2022-03-08 11:20 | CASEMGMT ---
RN NOLAN BUILDING ARCHITECTURAL DESIGNER CM to room to meet with patient for initial transition planning/care coordination assessment. SHANNAN FRANCISCO introduced self and role at [facility]. Pt resting in bed in no distress at this time.? @ bedside. Pt is A/O at this time and answers some questions. provided most of the following information. Care providers, pharmacy, and demographics verified/updated at this time. PCP: Dr Latif Specialists: Dr Guaman-GI, Dr Lopez-cardiology, Dr Cardoza-neurology, Dr Hoang-pain mgmt @ [facility], Dr Buck-urology @ [facility], Dr Yan-pulmonology. Preferred Pharmacy: [facility] Insurance: MMO, [employer] Prescription Benefit:?Yes Living Will/HPOA:?Has both LW and HCPOA, who is his , Dina LNOK: , Dina Living Arrangements: Lives w/ in one-story home w/small ramp entrance over one step. Pt has muscular dystrophy and has PEG and trach. provides total care for pt. Transportation:? They have a W/C van and provides transportation. states can take pt home @ discharge in the w/c van, unless pt is not feeling well. If pt is not feeling well, then he may need transportation arranged to go home on a cot. DME: States has the following DME:?cough assist device, percussion vest, nebulizer, hospital bed, pulse ox, BP cuff, lift trach system, Torsten lift, power w/c, home vent/trilogy w/O2 @ 6 l/m bleed in @ HS. Oxygen is thru [employer]. states they get most medical supplies via the mail from [facility]. HHC/SNF:Pt is active w/[facility] in [place] (PH: [phone]) for SN only. Pt qualifies for 45 hrs, but they only have staffing for 65 hrs currently. states they would like for pt to return home w/[facility] SN only. Offered list of other C agencies w/in network and she accepted, to have for future reference, if needed. A list of HHC providers including quality and resource use data and consistent with the patient?s preferred geographic region, medical needs, and insurance network were provided from the [employer] Guide. wishes for pt to return home and states has no concerns with going home at time of discharge.? CM to follow for any further discharge planning/needs.? voices no further concerns/needs at this time.? Advised to ask for CM if any further questions/concerns/needs arise.? Voices understanding. PLAN:??Home w/[facility]: SN only, and spousal support. Cruz PAYNEN RN CM
[2022-03-08] MEDS: Mag Hydrox/Al Hydrox/Simeth 30 ML UDC 20 ML GT (12:11)
[2022-03-08 12:39] LABS: ALB/GLOB Ratio 0.7 RATIO (0.9-2.4); AST(SGOT) 131 U/L (15-37); Alanine Aminotransfer ALT/SGPT 132 U/L (16-61); Albumin, Serum 2.8 g/dL (3.2-5.0); Alkaline Phosphatase 137 U/L (45-117); Anion Gap 10 (5-15); BUN 9 mg/dL (7-18); BUN/Creat Ratio 43.3 RATIO (10-20); Chloride 100 mmol/L (98-107); Creatinine, Serum 0.21 mg/dL (0.70-1.30); EST Glomerular Filtration Rate 493 mL/min (>60); Est Glom Filt Rate - Afr Amer 597 mL/min (>60); Glucose 117 mg/dL (74-106); Potassium 3.6 mmol/L (3.5-5.1); Protein, Total 6.8 g/dL (6.4-8.2); Sodium Level 134 mmol/L (136-145)
--- NOTE | 2022-03-08 13:18 | CASEMGMT ---
H &P and [facility] order sent via [facility]. [facility] aware of pt admission and clincials to be sent via [employer]. Green sheet on chart for [facility], new O2 order. Pal RN CM
--- NOTE | 2022-03-08 14:56 | NS ---
Discussed enteral nutrition w/ . will bring in home enteral nutrition supplies. Zenaida Fleming MS, RDN, LD
[2022-03-08 16:20] LABS: Blood Gas Specimen Type VEN; VBG BASE EXCESS -2 mmol/L (-1.0-3.5); VBG Bicarbonate 22 mmol/L (22-26); VBG PO2 153 mmHg (25-40); VBG SO2 100 % (50-70); VBG TCO2 22 mmol/L (23-33); VBG pCO2 28.9 mmHg (41-51); VBG pH 7.48 (7.32-7.42)
[2022-03-08] MEDS: Albuterol 2.5 MG/3 ML VIAL.NEB. INHALATION (17:12)
[2022-03-08] MEDS: Ondansetron 4 MG/2 ML Vial IV (18:58)
[2022-03-08] MEDS: Sertraline 50 MG Tablet GT (21:03)
[2022-03-08] MEDS: Ferrous Sulfate 300 MG/5 ML UDC 75 MG GT (21:04)
[2022-03-08] MEDS: morphine (oral solution) 10MG/0.5ML Syringe 20 MG GT (21:19)
[2022-03-08] MEDS: cycloBENZAPRine HCl 10 MG Tablet GT (23:04)
[2022-03-09] VITALS (9 sets, daily range): BP systolic 164–171; BP diastolic 77–87; PULSE 62–81; RESP 16–18; TEMP 36.4–36.8; O2SAT 97–99
[2022-03-09] MEDS: HYDROCODONE/APAP 7.5-325/15ML 15 ML UDC PO ×2 (00:48→15:44)
[2022-03-09] MEDS: Dicyclomine 10 MG Capsule GT ×3 (00:49→15:44)
[2022-03-09] MEDS: morphine (oral solution) 10MG/0.5ML Syringe 20 MG GT ×2 (03:31→12:27)
--- NOTE | 2022-03-09 04:45 | NURSING ---
waiting for surgery consult to check on PEG tube leakage. Per MD all PEG feedings and meds held via PEG tube.
--- NOTE | 2022-03-09 04:45 | NURSING ---
waiting for surgery consult for PEG leaking. As of now PEG tube feeedinf
[2022-03-09] MEDS: Morphine 4 MG/ML Syringe IV ×2 (06:49→09:53)
--- NOTE | 2022-03-09 07:10 | PN.HOSP_ITS ---
Subjective Subjective DOS: 03/09/2022 CC: PEG tube leaking Resting comfortably, at bedside. Reports he did fairly well overnight unti l PEG tube started leaking, reportedly try to fix this but now there is concerns dislodged. There were no other complaints voiced this a.m. Objective Data Objective Data Vital Signs: Vital Signs Temp Pulse Resp BP Pulse Ox O2 Del Method O2 Flow Rate 98.3 F 79 18 165/77 H 97 Mechanical Ventilator 2 03/09/22 03:18 03/09/22 03:18 03/09/22 03:18 03/09/22 03:18 03/09/22 03:18 03/09/22 05:16 03/08/22 19:57 Oxygen Flow Rate (L/min) 2 Oxygen Delivery Method Mechanical Ventilator Weight: 87.5 kg Body Mass Index (BMI) 26.9 Intake & Output: Intake and Output for Last 24 Hours 03/07/22 03/08/22 03/09/22 23:59 23:59 23:59 Intake Total 4176 / 4206 30 / 30 Output Total 120 / 420 300 / 300 Balance 4056 / 3786 -270 / -270 Lab / Micro Data Result Diagrams: 03/08/22 02:05 03/08/22 12:15 Labs: Laboratory Results - last 24 hr 03/08/22 09:55: Lactic Acid 2.0 03/08/22 12:15: Sodium 134 L, Potassium 3.6, Chloride 100, Carbon Dioxide 24.0, Anion Gap 10, BUN 9, Creatinine 0.21 L, Estim Creat Clear Calc 369.40, Est GFR (MDRD) Af Amer 597, Est GFR (MDRD) Non-Af 493, BUN/Creatinine Ratio 43.3 H, Glucose 117 H, Calcium 9.0, Total Bilirubin 3.60 H, AST 131 H, ALT 132 H, Alkaline Phosphatase 137 H, Total Protein 6.8, Albumin 2.8 L, Globulin 4.0, Albumin/Globulin Ratio 0.7 L Micro: Microbiology 03/08/22 02:00 Nasal Secretion SARS-CoV-2 & FLU Antigen (Rapid) - Final ABG Data ABG results: ABG 03/08/22 16:13 Specimen Type CIERRA VBG pH 7.48 H VBG pO2 153 H VBG HCO3 22 VBG Total CO2 22 L VBG O2 Sat (Calc) 100 H VBG Base Excess -2 L POC Mix VBG pCO2 Pt Tmp 28.9 L Radiography Diagnostic Testing: Radiology Impression Gallbladder Ultrasound 03/08/22 05:41 IMPRESSION: 6 mm nonobstructive calculus is seen in the right kidney. Electronically Signed: Mikey Angeles MD at 11:09 EDT , Physical Exam Const alert Constitutional Narrative: Resting comfortable HEENT normocephalic Eyes Eyes Narrative: Covering face with towel Neck supple Neck Narrative: Trach in place Resp normal respiratory effort Resp Narrative: Transmitted upper airway sounds, no asymmetrical findings Cardio regular rate and regular rhythm GI GI Narrative: Nondistended, soft, no rebound, no guarding, no rigidity Extremity Extremity Narrative: No edema appreciated Neuro Neuro Narrative: Muscular dystrophy, no specific focal deficits appreciated Psych Psych Narrative: Cooperative Assessment & Plan Assessment/Plan (1) Altered mental status: (2) Elevated lactic acid level: (3) Elevated liver enzymes: (4) Hyponatremia: (5) Compression fracture of thoracic spine, non-traumatic: (6) Non-ST elevation ID (NSTEMI): (7) Muscular dystrophy: (8) Chronic hypoxemic respiratory failure: (9) Presence of cardiac pacemaker: PLAN: Plan #Altered mental status Unable to perform full mental status exam given his difficulty with communication not at bedside, will speak with her again when she returns Does have elevated ammonia, will add lactulose Additionally may be dehydrated given all cell lines have increased, will start gentle hydration given heart failure history CT brain with mild involutional change, likely chronic microvascular ischemia Will obtain COVID 03/09/2022: Seemed to improve throughout the day. Attempted to talk with yesterday but was not in room and no answer on phone. Will discuss with her today, patient very tired and will attempt to further assess mental status as the day goes on. Likely due to dehydration given significant improvement with fluids as evidenced by improvement in lactic acid as well as weight. Cultures no growth to date and getting better despite no antibiotics so low suspicion of active infection #Lactic acidosis?resolved No source of infection found at this time but does have elevated LFTs and right upper quadrant ultrasound pending Was mildly tachycardic on presentation but that resolved independently and was never hypotensive May be component of dehydration Will begin hydration Trend lactic acid Did have razo scan from brain down through abdomen pelvis CT with no identified source of infection UA unremarkable #Muscular dystrophy with 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 Not hypoxic at this time, continue current vent settings Will consult dietitian given PEG and tube feeds Continue cyclobenzaprine 03/09/2022: confirmed his morphine dose and this was updated in the system. Overnight there was concern for leakage around the PEG, per report attempted to address this but there are now concerns that it is dislodged, general surgery consulted #NSTEMI Likely type II Peaked at 580, has trended down to 508 Do not think that current presentation is the result of a cardiac event, no chest pain had been reported, no changes in breathing CTA with no PE 03/09: Trended down, do not feel there is a type I event. #Chronic hyponatremia Will trend, if does not improve some with fluids or if worsens will obtain further work-up 03/09: A.m. labs pending, will follow up. Trend BMP #Elevated transaminases Unclear etiology Has some generalized abdominal pain, not localized to related upper quadrant CT abdomen pelvis with no remarkable findings, did have a borderline bile duct but reported it was stable from previous exams No rebound, guarding, rigidity Awaiting right upper quadrant ultrasound Lipase 37 Will hold valproic acid given elevated ammonia and elevated transaminases, will clarify what this is for, may need to substitute medication #metabolic acidosis Borderline anion gap at 14, likely due to elevated lactic acid Will trend labs #Sick sinus syndrome status post pacemaker Supportive care #History of cardiomyopathy Previously had reduced EF per report but most recent echo 07/18/2021 showed an EF of 55% with RVSP estimated to be 27 and trains Doppler flow suggestive of impaired relaxation of the left ventricle No indication to get repeat echo at this time #Compression fractures Supportive care Will clarify home pain medication regimen #DVT ppx: Mandi Goodman MD Charges/Coding Visit Charges Inpatient E&M: 26155 Subs Hosp L2
[2022-03-09 08:44] LABS: Absolute Lymphocyte Count 0.64 X10^3/uL (0.83-4.51); Absolute Neutrophil Count 3.8 X10^3/uL (2.0-7.7); Basophil# 0.01 X10^3/uL; Basophil% 0.2 % (0-1); Eosinophil# 0.01 X10^3/uL; Eosinophils% 0.2 % (0-5); Hematocrit 38.4 % (40-54); Hemoglobin 13.2 g/dL (13.0-16.5); Lymphocyte # 0.64 X10^3/ul (0.83-4.51); Lymphocyte % 12.5 % (19-41); Mean Corp Hgb Conc 34.4 g/dL (32-36); Mean Corpuscular Hgb 31.3 pg (27.0-32.0); Mean Platelet Vol. 8.2 fl (6.2-12.0); Monocyte# 0.66 X10^3/uL; Monocyte% 12.9 % (0-10); NRBC Flagged by Analyzer 0 % (0-5); Neutrophil # 3.77 X10^3/uL (2.7-7.7); Neutrophil % 73.6 % (47-70); Platelet Count 141 K/mm3 (150-450); RBC Distribution Width CV 13.2 % (11.6-14.6); RBC Distribution Width SD 44.3 fl (35.1-43.9); Red Blood Count 4.22 M/mm3 (4.6-6.2); White Blood Count 5.1 K/mm3 (4.4-11.0)
[2022-03-09 08:50] LABS: ALB/GLOB Ratio 0.7 RATIO (0.9-2.4); AST(SGOT) 108 U/L (15-37); Alanine Aminotransfer ALT/SGPT 111 U/L (16-61); Albumin, Serum 2.4 g/dL (3.2-5.0); Alkaline Phosphatase 130 U/L (45-117); Anion Gap 6 (5-15); BUN 9 mg/dL (7-18); Calcium,Total 8.7 mg/dL (8.5-10.1); Chloride 101 mmol/L (98-107); Globulin 3.6 g/dL (2.2-4.2); Glucose 103 mg/dL (74-106); Magnesium 2.2 mg/dL (1.6-2.6); Phosphorus 1.9 mg/dL (2.5-4.9); Potassium 4.2 mmol/L (3.5-5.1); Sodium Level 128 mmol/L (136-145); Thyroid Stim Hormone (TSH) 2.05 uIU/mL (0.358-3.74)
[2022-03-09 09:06] LABS: Creatinine, Serum < 0.15 mg/dL (0.70-1.30); EST Glomerular Filtration Rate 721 mL/min (>60); Est Glom Filt Rate - Afr Amer 874 mL/min (>60)
[2022-03-09] MEDS: 0.9% Saline Lock 10 ML Syringe IV (09:53)
--- NOTE | 2022-03-09 11:19 | EX.PCM.CON.S ---
Assessment & Plan Assessment/Plan (1) Malfunction of gastrostomy tube: PLAN: Gastrostomy tube with intestinal component that was placed earlier this year at another medical facility Adjustments were made and the above appears to be functioning normally again and this was confirmed by the patient's . Will sign off consultation Please re- consult if any changes PLAN: Plan see above HPI Consult Data Date of Consult: 03/09/22 HPI Narrative Reason for Consultation: concern for gastrostomy tube HPI Narrative: DELIA RUIZ, is a 61 M who presents with concern for gastrostomy tube malfunction I was asked by Dr. Myra Goodman, hospitalist at [facility] (upon request of patient's family), to evaluate this. The patient's who is primary manager patient states that this is a dual port alimentary tube - one port to the stomach and one port to the small intestine. She states that the tube was pulled upon and when contents were applied into the port entering into the patient's stomach, it would leak out the abdominal wall opening. [facility] Medical History (Updated 03/09/22 @ 11:[address] Rosalia Keane MD) Acute respiratory failure Anemia Anxiety Back pain Back pain Cardiology follow-up encounter Cardiomyopathy Carotid artery calcification Chest pain Chest pain Chronic hypoxemic respiratory failure Chronic low back pain Complete heart block Depression Diarrhea Dietary restriction Difficulty balancing Dilated cardiomyopathy Frequent headaches GERD (gastroesophageal reflux disease) Heart disease Hereditary progressive muscular dystrophy History of echocardiogram History of edema History of IBS History of urinary calculi Hypertension Injury of head and neck Irritable bowel syndrome Kidney stones Limb weakness Malfunction of gastrostomy tube MRSA (methicillin resistant 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) colonization Muscular dystrophy Non-smoker On home oxygen therapy Otitis interna PEG tube malfunction Pneumonia Pneumonia Pseudomonas pneumonia Shoulder pain Sick sinus syndrome SOB (shortness of breath) Thyroid disease Troponin I above reference range Uses wheelchair Ventilator dependent Home Medications cholecalciferol (vitamin D3) 25 mcg (1,000 unit) tablet 2,000 unit feeding tube DAILY SUPPLEMENT 07/01/14 [History Last Taken 10/30/21] aspirin 81 mg chewable tablet 81 mg feeding tube DAILY@0800 HEART HEATLTH 03/09/15 [History Last Taken 10/30/21] sennosides 8.6 mg tablet 1 tab feeding tube BID PRN Constipation 03/09/15 [History Last Taken 10/30/21] bacitracin 500 unit/gram topical packet 1 applic topical PRN PRN Skin Cleansing 07/05/17 [History Last Taken Unknown] aluminum-mag hydroxide-simethicone 400 mg-400 mg-40 mg/5 mL oral susp 20 ml PO PRN PRN gastric distress 07/07/18 [History Last Taken Unknown] naproxen sodium 220 mg capsule 220 mg G-tube BID PRN PRN Pain 07/07/18 [History Last Taken 10/29/21] cyclobenzaprine 10 mg tablet 10 mg feeding tube BID PRN PRN Spasms 07/10/18 [History Last Taken 10/29/21] hydrocodone 10 mg-acetaminophen 325 mg tablet 10 - 325 tab feeding tube PRN PRN Pain 07/10/18 [History Last Taken 10/30/21 09:30] dextromethorphan-guaifenesin 5 mg-100 mg/5 mL oral liquid (Child Robitussin Cough-Chest DM) 10 ml feeding tube Q6H PRN Muscle Spasticity 02/11/20 [History Last Taken Unknown] albuterol sulfate 2.5 mg/3 mL (0.083 %) solution for nebulization 2.5 mg (3 mL) inhalation Q4H PRN PRN Sob &/Or Wheezing #180 mL 09/27/20 [Rx Last Taken Unknown] sodium chloride 0.9 % for nebulization 1 ml inhalation Q8H PRN thick secretions 04/10/21 [History Last Taken Unknown] zinc oxide 10 % topical ointment 1 applic topical BID-QID PRN Skin Cleansing 04/10/21 [History Last Taken Unknown] albuterol sulfate 90 mcg/actuation aerosol inhaler (ProAir HFA) 2 puff inhalation TID PRN sob 08/06/21 [History Last Taken Unknown] ferrous sulfate 15 mg iron (75 mg)/mL oral drops (Henry-In-Domonique) 1 ml PO BID 08/13/21 [History Last Taken 10/30/21] guaifenesin 200 mg/5 mL oral liquid 200 mg feeding tube Q4H PRN cough 08/13/21 [History Last Taken Unknown] valproic acid (as sodium salt) 250 mg/5 mL (5 mL) oral solution 500 mg feeding tube BID 08/13/21 [History Last Taken 10/30/21] glycopyrrolate 1 mg tablet 1.5 mg feeding tube BID GI #135 tabs 09/03/21 [Rx Last Taken 10/30/21] buspirone 30 mg tablet 30 mg feeding tube BID ANXIETY #180 tabs 09/10/21 [Rx Last Taken 10/30/21] morphine 20 mg/5 mL (4 mg/mL) oral solution 20 mg PO Q6H PRN Pain 09/21/21 [History Last Taken 10/30/21 08:00] nystatin 100,000 unit/gram topical cream 1 applic topical BID PRN redness 09/21/21 [History Last Taken Unknown] glycerin (adult) 1 supp [place] BID PRN Constipation 10/30/21 [History Last Taken 10/30/21] glycerin (adult) (Fleet Glycerin (Adult) rectal suppository) 1 supp [place] DAILY PRN Constipation 10/30/21 [History Last Taken Unknown] psyllium husk (aspartame) 3.4 gram/5.8 gram oral powder (Metamucil Sugar-Free (aspartame)) 3 g PO TID PRN Constipation 10/30/21 [History Last Taken Unknown] sertraline 20 mg/mL oral concentrate 50 mg feeding tube QHS 10/30/21 [History Last Taken 10/29/21] lansoprazole 30 mg delayed release,disintegrating tablet See Rx Instructions .Route .COMPLEX #30 TABLETS 12/03/21 [Rx Last Taken Unknown] sodium bicarbonate 1 mEq/mL (8.4 %) intravenous solution See Rx Instructions .Route .COMPLEX #500 mL 12/03/21 [Rx Last Taken Unknown] polyethylene glycol 3350 17 gram oral powder packet (Miralax) 17 g PO BID PRN Constipation #100 ea 01/17/22 [Rx Last Taken Unknown] Allergy/AdvReac Type Severity Reaction Status Date / Time No Known Allergies Allergy Verified 01/01/22 21:17 Family History Mother Heart disease Myocardial infarction Arthritis Depression Father Thyroid cancer Myocardial infarction Parkinson disease Arthritis Sister Thyroid cancer Arthritis Surgical History Gastrointestinal tube in situ History of esophagogastroduodenoscopy (EGD) History of hemorrhoidectomy History of release of tendon Presence of cardiac pacemaker Tracheostomy tube present (~2013) Social History Smoking Status: Never smoker second hand exposure: No alcohol intake: never substance use type: does not use caffeine: Yes Type: coffee what type of physical activity do you participate in: none ROS Review of Systems ROS Unobtainable: due to endotracheal tube Physical Exam Const alert and oriented x3 General Appearance: cooperative Neck Neck Narrative: tracheostomy with tube in place Resp normal respiratory effort GI GI Narrative: abdomen is soft and benign gastrostomy tube with flange slightly pulled away from the skin - I moved flange to be flush at the skin level I flushed both stomach and intestine ports and there was no leakage evident Neuro Neuro Narrative: patient with muscular dystrophy Lab / Micro Data Attestation: I reviewed the patient's lab results. Result Diagrams: 03/09/22 07:12 03/09/22 06:47 Labs: Laboratory Results - last 24 hr 03/08/22 12:15: Sodium 134 L, Potassium 3.6, Chloride 100, Carbon Dioxide 24.0, Anion Gap 10, BUN 9, Creatinine 0.21 L, Estim Creat Clear Calc 369.40, Est GFR (MDRD) Af Amer 597, Est GFR (MDRD) Non-Af 493, BUN/Creatinine Ratio 43.3 H, Glucose 117 H, Calcium 9.0, Total Bilirubin 3.60 H, AST 131 H, ALT 132 H, Alkaline Phosphatase 137 H, Total Protein 6.8, Albumin 2.8 L, Globulin 4.0, Albumin/Globulin Ratio 0.7 L 03/09/22 06:47: Sodium 128 L, Potassium 4.2, Chloride 101, Carbon Dioxide 21.0, Anion Gap 6, BUN 9, Creatinine < 0.15 L, Estim Creat Clear Calc 517.19, Est GFR (MDRD) Af Amer 874, Est GFR (MDRD) Non-Af 721, BUN/Creatinine Ratio 60.0 H, Glucose 103, Calcium 8.7, Phosphorus 1.9 L, Magnesium 2.2, Total Bilirubin 3.20 H, AST 108 H, ALT 111 H, Alkaline Phosphatase 130 H, Total Protein 6.0 L, Albumin 2.4 L, Globulin 3.6, Albumin/Globulin Ratio 0.7 L, TSH 2.05 03/09/22 06:47: Ammonia Cancelled 03/09/22 07:12: WBC 5.1, RBC 4.22 L, Hgb 13.2, Hct 38.4 L, MCV 91.0, MCH 31.3, MCHC 34.4, RDW Std Deviation 44.3 H, RDW Coeff of Lily 13.2, Plt Count 141 L, MPV 8.2, Immature Gran % (Auto) 0.600, Neut % (Auto) 73.6 H, Lymph % (Auto) 12.5 L, Martin % (Auto) 12.9 H, Eos % (Auto) 0.2, Baso % (Auto) 0.2, Absolute Neuts (auto) 3.8, Absolute Lymphs (auto) 0.64 L, Nucleated RBC % 0 03/09/22 10:00: Ammonia 38.0 H Micro: Microbiology 03/08/22 01:50 Urine, Clean Catch Urine Culture - Preliminary Culture exhibits no growth. ABG Data ABG results: ABG 03/08/22 16:13 Specimen Type CIERRA VBG pH 7.48 H VBG pO2 153 H VBG HCO3 22 VBG Total CO2 22 L VBG O2 Sat (Calc) 100 H VBG Base Excess -2 L POC Mix VBG pCO2 Pt Tmp 28.9 L
[2022-03-09] MEDS: Glycopyrrolate 1 MG TABLET 1.5 MG GT (12:17)
[2022-03-09] MEDS: busPIRone 15 MG TABLET 30 MG GT (12:18)
[2022-03-09] MEDS: Ferrous Sulfate 300 MG/5 ML UDC 75 MG GT (12:19)
[2022-03-09] MEDS: Lansoprazole 15 MG Capsule.DR 30 MG GT (12:20)
--- NOTE | 2022-03-09 16:15 | PCM.DC.SUM ---
Providers Date of Admission: 03/08/22 Date of Discharge: 03/09/22 Primary Care Physician: Dr. 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 Reason For Visit: NSTEMI TYPE II, LACTIC ACIDOSIS Diagnosis Discharge Diagnosis (1) Malfunction of gastrostomy tube: Status: Acute Code(s): K94.23 - Gastrostomy malfunction (2) Presence of cardiac pacemaker: Status: Chronic Code(s): Z95.0 - Presence of cardiac pacemaker (3) Muscular dystrophy: Status: Chronic Code(s): G71.00 - Muscular dystrophy, unspecified (4) Chronic hypoxemic respiratory failure: Status: Chronic Code(s): J96.11 - Chronic respiratory failure with hypoxia (5) Elevated lactic acid level: Status: Acute Code(s): R79.89 - Other specified abnormal findings of blood chemistry (6) Elevated liver enzymes: Status: Acute Code(s): R74.8 - Abnormal levels of other serum enzymes (7) Hyponatremia: Status: Acute Code(s): E87.1 - Hypo-osmolality and hyponatremia (8) Compression fracture of thoracic spine, non-traumatic: Status: Acute Code(s): M48.54XA - Collapsed vertebra, not elsewhere classified, thoracic region, initial encounter for fracture (9) Non-ST elevation KS (NSTEMI): Status: Acute Code(s): I21.4 - Non-ST elevation (NSTEMI) myocardial infarction (10) Altered mental status: Status: Acute Code(s): R41.82 - Altered mental status, unspecified Plan #Altered mental status- improved #Lactic acidosis?resolved #Muscular dystrophy with 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 #NSTEMI type II #Chronic hyponatremia #Elevated transaminases #metabolic acidosis resolved #Sick sinus syndrome status post pacemaker #History of cardiomyopathy #Compression fractures Medications at Discharge Home Medications cholecalciferol (vitamin D3) 25 mcg (1,000 unit) tablet 2,000 unit feeding tube DAILY SUPPLEMENT 07/01/14 aspirin 81 mg chewable tablet 81 mg feeding tube DAILY@0800 HEART HEATLTH 03/09/15 sennosides 8.6 mg tablet 1 tab feeding tube BID PRN Constipation 03/09/15 bacitracin 500 unit/gram topical packet 1 applic topical PRN PRN Skin Cleansing 07/05/17 aluminum-mag hydroxide-simethicone 400 mg-400 mg-40 mg/5 mL oral susp 20 ml PO PRN PRN gastric distress 07/07/18 naproxen sodium 220 mg capsule 220 mg G-tube BID PRN PRN Pain 07/07/18 cyclobenzaprine 10 mg tablet 10 mg feeding tube BID PRN PRN Spasms 07/10/18 hydrocodone 10 mg-acetaminophen 325 mg tablet 10 - 325 tab feeding tube PRN PRN Pain 07/10/18 dextromethorphan-guaifenesin 5 mg-100 mg/5 mL oral liquid (Child Robitussin Cough-Chest DM) 10 ml feeding tube Q6H PRN Muscle Spasticity 02/11/20 albuterol sulfate 2.5 mg/3 mL (0.083 %) solution for nebulization 2.5 mg (3 mL) inhalation Q4H PRN PRN Sob &/Or Wheezing #180 mL 09/27/20 sodium chloride 0.9 % for nebulization 1 ml inhalation Q8H PRN thick secretions 04/10/21 zinc oxide 10 % topical ointment 1 applic topical BID-QID PRN Skin Cleansing 04/10/21 albuterol sulfate 90 mcg/actuation aerosol inhaler (ProAir HFA) 2 puff inhalation TID PRN sob 08/06/21 ferrous sulfate 15 mg iron (75 mg)/mL oral drops (Henry-In-Domonique) 1 ml PO BID 08/13/21 guaifenesin 200 mg/5 mL oral liquid 200 mg feeding tube Q4H PRN cough 08/13/21 glycopyrrolate 1 mg tablet 1.5 mg feeding tube BID GI #135 tabs 09/03/21 buspirone 30 mg tablet 30 mg feeding tube BID ANXIETY #180 tabs 09/10/21 morphine 20 mg/5 mL (4 mg/mL) oral solution 20 mg PO Q6H PRN Pain 09/21/21 nystatin 100,000 unit/gram topical cream 1 applic topical BID PRN redness 09/21/21 glycerin (adult) [address] BID PRN Constipation 10/30/21 glycerin (adult) (Fleet Glycerin (Adult) rectal suppository) [address] DAILY PRN Constipation 10/30/21 psyllium husk (aspartame) 3.4 gram/5.8 gram oral powder (Metamucil Sugar-Free (aspartame)) 3 g PO TID PRN Constipation 10/30/21 sertraline 20 mg/mL oral concentrate 50 mg feeding tube QHS 10/30/21 lansoprazole 30 mg delayed release,disintegrating tablet See Rx Instructions .Route .COMPLEX #30 TABLETS 12/03/21 sodium bicarbonate 1 mEq/mL (8.4 %) intravenous solution See Rx Instructions .Route .COMPLEX #500 mL 12/03/21 polyethylene glycol 3350 17 gram oral powder packet (Miralax) 17 g PO BID PRN Constipation #100 ea 01/17/22 Hospital Course Summary of Care Provided Minutes Spent on Discharge: 35 Hospital Course: DELIA RUIZ, is a 61 M with a history of low back pain, hypertension, muscular dystrophy with trach and PEG, GERD, dilated cardiomyopathy and sick sinus syndrome status post pacemaker who presented to [facility] 03/08/2022 with what was reported to be altered mental status.? At the time of admission history primarily obtained from ED as was not at bedside and patient had difficulty answering my questions.? Reportedly he had been more confused intermittently the day prior to admission and there is no known exacerbating factor. Upon arrival he was slightly tachycardic but not hypotensive and no recorded fevers. Reported T-max at home 99.9. No source of infection found after razo scan. Lactic acid was elevated as were liver function tests. Patient improved significantly with fluids and cessation of the Depakote. Suspect he was dehydrated and when liver function worsened slightly Depakote was unable to be cleared efficiently and caused/contributed to altered mental status and being more tired. He improved independent of any antibiotics. Of note there was concern that his PEG tube was leaking and that it ended up possibly dislodged, surgery consulted by the time he was evaluated it was functioning properly again. Spoke with who reported he takes Depakote for headaches and is agreeable to holding this on discharge and following up with her neurologist as an outpatient. She felt he was close to baseline and was comfortable with discharge. He made a quick and unexpected recovery and was discharged sooner than 2 midnights because of this. Physical Exam Const alert Constitutional Narrative: Resting comfortable HEENT normocephalic Eyes EOMs intact bilaterally Neck supple Neck Narrative: Trach in place Resp normal respiratory effort Resp Narrative: Transmitted upper airway sounds, no asymmetrical findings Cardio regular rate and regular rhythm GI GI Narrative: Nondistended, soft, no rebound, no guarding, no rigidity Extremity Extremity Narrative: No edema appreciated Neuro Neuro Narrative: Muscular dystrophy, no specific focal deficits appreciated Psych Psych Narrative: Cooperative Weight / BMI Weight Weight: 87.5 kg Body Mass Index (BMI) 26.9 ABG / Lab / Microbiology Data Result Diagrams: 03/09/22 07:12 03/09/22 06:47 Laboratory: Laboratory Results - last 24 hr 03/09/22 06:47: Sodium 128 L, Potassium 4.2, Chloride 101, Carbon Dioxide 21.0, Anion Gap 6, BUN 9, Creatinine < 0.15 L, Estim Creat Clear Calc 517.19, Est GFR (MDRD) Af Amer 874, Est GFR (MDRD) Non-Af 721, BUN/Creatinine Ratio 60.0 H, Glucose 103, Calcium 8.7, Phosphorus 1.9 L, Magnesium 2.2, Total Bilirubin 3.20 H, AST 108 H, ALT 111 H, Alkaline Phosphatase 130 H, Total Protein 6.0 L, Albumin 2.4 L, Globulin 3.6, Albumin/Globulin Ratio 0.7 L, TSH 2.05 03/09/22 06:47: Ammonia Cancelled 03/09/22 07:12: WBC 5.1, RBC 4.22 L, Hgb 13.2, Hct 38.4 L, MCV 91.0, MCH 31.3, MCHC 34.4, RDW Std Deviation 44.3 H, RDW Coeff of Lily 13.2, Plt Count 141 L, MPV 8.2, Immature Gran % (Auto) 0.600, Neut % (Auto) 73.6 H, Lymph % (Auto) 12.5 L, Dorado % (Auto) 12.9 H, Eos % (Auto) 0.2, Baso % (Auto) 0.2, Absolute Neuts (auto) 3.8, Absolute Lymphs (auto) 0.64 L, Nucleated RBC % 0 03/09/22 10:00: Ammonia 38.0 H Microbiology: Microbiology 03/08/22 01:50 Urine, Clean Catch Urine Culture - Preliminary Culture exhibits no growth. 03/08/22 02:00 Nasal Secretion SARS-CoV-2 & FLU Antigen (Rapid) - Final ABG: ABG 03/08/22 16:13 Specimen Type CIERRA VBG pH 7.48 H VBG pO2 153 H VBG HCO3 22 VBG Total CO2 22 L VBG O2 Sat (Calc) 100 H VBG Base Excess -2 L POC Mix VBG pCO2 Pt Tmp 28.9 L D/C Instructions Discharge Diet: - (Tube feeds at home) Meaningful Use Info Meaningful Use Diagnoses (Choose all that apply): None applicable Discharge Plan Admission Admit Date/Time: 03/08/22 07:42 Primary Reason for Your Visit: Altered mental status Attending Provider: Myra Goodman Primary Care Provider: Tyesha Latif Consulting Providers: Rosalia Keane Instructions Patient Instructions: Gastrostomy Feeding Tube Care ... Additional Instructions / Restrictions: ? Given your liver function tests your Depakote has been held ?Continue to follow with your neurologist ? Your liver function was improving upon discharge. Would recommend calling your primary care physician on Friday to get follow-up lab work in 3 to 5 days (CMP) to verify liver function continues to improve. -Please call your primary care provider's office upon discharge to schedule a hospital follow up within 1 week. -For any concerning signs or symptoms please call 911 or proceed to the nearest emergency department Discharge Orders/Prescriptions Prescriptions: Continued bacitracin 500 unit/gram packet 1 applic TOPICAL PRN PRN (Reason: Skin Cleansing) Chld Robitussin Cough-Chest DM 5-100 mg/5 mL liquid 10 ml feeding tube Q6H PRN (Reason: Muscle Spasticity) albuterol sulfate 2.5 mg /3 mL (0.083 %) solution for nebulization 2.5 mg inhalation Q4H PRN PRN (Reason: Sob &/Or Wheezing) Qty: 180 6RF zinc oxide 10 % ointment 1 applic topical BID-QID PRN (Reason: Skin Cleansing) sodium chloride 0.9 % solution for nebulization 1 ml inhalation Q8H PRN (Reason: thick secretions) nystatin 100,000 unit/gram cream 1 applic topical BID PRN (Reason: redness) albuterol sulfate [ProAir HFA] 90 mcg/actuation HFA aerosol inhaler 2 puff inhalation TID PRN (Reason: sob) morphine 20 mg/5 mL (4 mg/mL) solution 20 mg PO Q6H PRN (Reason: Pain) cholecalciferol (vitamin D3) 1,000 UNIT tablet 2,000 unit feeding tube DAILY sennosides 1 TABLET tablet 1 tab feeding tube BID PRN (Reason: Constipation) aspirin 81 MG tablet,chewable 81 mg feeding tube DAILY@0800 alum-mag hydroxide-simeth 30 ML suspension 20 ml PO PRN PRN (Reason: gastric distress) naproxen sodium 220 MG capsule 220 mg G-tube BID PRN PRN (Reason: Pain) cyclobenzaprine 10 MG tablet 10 mg feeding tube BID PRN PRN (Reason: Spasms) hydrocodone-acetaminophen 1 EACH tablet 10 - 325 tab feeding tube PRN PRN (Reason: Pain) Label Comments: take 1 tablet by mouth three times a day if needed guaifenesin 200 mg/5 mL liquid 200 mg feeding tube Q4H PRN (Reason: cough) ferrous sulfate [Henry-In-Domonique] 15 mg iron (75 mg)/mL drops 1 ml PO BID glycerin (adult) Suppository [address] BID PRN (Reason: Constipation) glycerin (adult) [Fleet Glycerin (Adult)] Suppository [address] DAILY PRN (Reason: Constipation) Metamucil Sugar-Free (aspart) 3.4 gram/5.8 gram Powder 3 g PO TID PRN (Reason: Constipation) sertraline 20 mg/mL concentrate 50 mg feeding tube QHS glycopyrrolate 1 mg tablet 1.5 mg feeding tube BID Qty: 135 3RF buspirone 30 mg tablet 30 mg feeding tube BID Qty: 180 3RF lansoprazole 30 mg tablet,disintegrat, delay rel See Rx Instructions .ROUTE .COMPLEX Qty: 30 11RF Dose Instruction: DISSOLVE 1 TABLET IN WATER AND ADMINISTER THROUGH PEG TUBE ONCE DAILY Rx Instructions: DISSOLVE 1 TABLET IN WATER AND ADMINISTER THROUGH PEG TUBE ONCE DAILY sodium bicarbonate 1 mEq/mL (8.4 %) solution See Rx Instructions .ROUTE .COMPLEX Qty: 500 11RF Dose Instruction: COMBINE ONE LANSOPRAZOLE CAPSULE WITH 10 milliliters SODIUM BICARBONATE AND ADMINISTER THROUGH ENTERAL FEED TUBE Rx Instructions: COMBINE ONE LANSOPRAZOLE CAPSULE WITH 10 milliliters SODIUM BICARBONATE AND ADMINISTER THROUGH ENTERAL FEED TUBE polyethylene glycol 3350 [Miralax] 17 gram powder in packet 17 g PO BID PRN (Reason: Constipation) Qty: 100 2RF Discontinued valproic acid (as sodium salt) 250 mg/5 mL (5 mL) solution 500 mg feeding tube BID Referrals / Follow Up: Tyesha Latif MD [Primary Care Provider] - Within 1 Week Disposition Disposition (needs filled in before D/C Order can be placed): Home, Self Care Charges/Coding Visit Charges Inpatient E&M: 08697 Disch Hosp
== END 2022-03-09 16:44 | disposition home or self-care (01) | DRG 640 ==
LOC: ED 01:36 → PCU 08:15
PROVIDERS: Admitting Provider Internal Medicine; Emergency Provider Emergency Medicine; PCP Internal Medicine; Visit Provider Internal Medicine
DX: E86.0 Dehydration (principal); I21.A1 Myocardial infarction type 2; I42.0 Dilated cardiomyopathy; M48.54XA Collapsed vertebra, not elsewhere classified, thoracic region, initial encounter for fracture; J96.11 Chronic respiratory failure with hypoxia; K94.23 Gastrostomy malfunction; E87.20 Acidosis, unspecified; I49.5 Sick sinus syndrome; G71.00 Muscular dystrophy, unspecified; E87.1 Hypo-osmolality and hyponatremia; D64.9 Anemia, unspecified; K21.9 Gastro-esophageal reflux disease without esophagitis; I10 Essential (primary) hypertension; K58.9 Irritable bowel syndrome, unspecified; E80.6 Other disorders of bilirubin metabolism; I44.7 Left bundle-branch block, unspecified; Z95.0 Presence of cardiac pacemaker; Z79.82 Long term (current) use of aspirin; R00.0 Tachycardia, unspecified; R74.8 Abnormal levels of other serum enzymes
CPT/HCPCS: 36415; 70450; 71045; 71275; 72128; 72131; 74177; 76705; 80053; 81001; 82140; 82803; 83605; 83690; 83735; 84100; 84443; 84484; 85025; 87040; 87086; 87088; 87428; 93005; 94640; 97802; 99285; J7030; J7040; J7120; Q9967; A4216; J2405

== ENCOUNTER → 2022-03-14 | Outpatient (CLI) | payer OTHER, MEDICAID, SELFPAY ==
[2022-03-14 18:14] LABS: Absolute Lymphocyte Count 1.42 X10^3/uL (0.83-4.51); Absolute Neutrophil Count 3.8 X10^3/uL (2.0-7.7); Basophil# 0.02 X10^3/uL; Basophil% 0.3 % (0-1); Eosinophil# 0.02 X10^3/uL; Eosinophils% 0.3 % (0-5); Hematocrit 44.5 % (40-54); Hemoglobin 14.9 g/dL (13.0-16.5); Lymphocyte # 1.42 X10^3/ul (0.83-4.51); Lymphocyte % 23.6 % (19-41); Mean Corp Hgb Conc 33.5 g/dL (32-36); Mean Corpuscular Volume 95.5 fL (80-94); Mean Platelet Vol. 8.4 fl (6.2-12.0); Monocyte# 0.71 X10^3/uL; Monocyte% 11.8 % (0-10); NRBC Flagged by Analyzer 0 % (0-5); Neutrophil # 3.81 X10^3/uL (2.7-7.7); Neutrophil % 63.5 % (47-70); Platelet Count 352 K/mm3 (150-450); RBC Distribution Width CV 14.1 % (11.6-14.6); RBC Distribution Width SD 48.5 fl (35.1-43.9); Red Blood Count 4.66 M/mm3 (4.6-6.2)
[2022-03-14 18:24] LABS: Lactic Acid 1.4 mmol/L (0.4-1.9)
[2022-03-14 18:32] LABS: ALB/GLOB Ratio 0.7 RATIO (0.9-2.4); AST(SGOT) 64 U/L (15-37); Alanine Aminotransfer ALT/SGPT 110 U/L (16-61); Albumin, Serum 3.5 g/dL (3.2-5.0); Alkaline Phosphatase 207 U/L (45-117); Anion Gap 6 (5-15); BUN 17 mg/dL (7-18); BUN/Creat Ratio 84.6 RATIO (10-20); Calcium,Total 9.7 mg/dL (8.5-10.1); Chloride 100 mmol/L (98-107); EST Glomerular Filtration Rate 513 mL/min (>60); Est Glom Filt Rate - Afr Amer 621 mL/min (>60); Globulin 4.7 g/dL (2.2-4.2); Glucose 102 mg/dL (74-106); Potassium 4.6 mmol/L (3.5-5.1); Protein, Total 8.2 g/dL (6.4-8.2); Sodium Level 134 mmol/L (136-145)
[2022-03-18 17:36] LABS: Vitamin D 1,25-Dihydroxy 31.2 pg/mL (24.8-81.5)
== END | disposition home or self-care (01) ==
LOC: MTLAB 16:03
PROVIDERS: Psychiatry & Neurology Neurology; PCP Internal Medicine; Referring Provider Internal Medicine; Visit Provider Internal Medicine
DX: S22.000A Wedge compression fracture of unspecified thoracic vertebra, initial encounter for closed fracture (principal); E87.1 Hypo-osmolality and hyponatremia; R79.89 Other specified abnormal findings of blood chemistry; R74.8 Abnormal levels of other serum enzymes; D64.9 Anemia, unspecified
CPT/HCPCS: 36415; 80053; 82140; 82652; 82746; 83605; 85025

== ENCOUNTER → 2022-03-26 | Outpatient (CLI) | payer OTHER, MEDICAID, SELFPAY ==
[2022-03-26 15:34] LABS: Absolute Lymphocyte Count 1.42 X10^3/uL (0.83-4.51); Absolute Neutrophil Count 2.3 X10^3/uL (2.0-7.7); Basophil# 0.03 X10^3/uL; Basophil% 0.7 % (0-1); Eosinophil# 0.03 X10^3/uL; Eosinophils% 0.7 % (0-5); Hematocrit 44.2 % (40-54); Hemoglobin 15.1 g/dL (13.0-16.5); Lymphocyte # 1.42 X10^3/ul (0.83-4.51); Mean Corp Hgb Conc 34.2 g/dL (32-36); Mean Corpuscular Hgb 32.5 pg (27.0-32.0); Mean Corpuscular Volume 95.3 fL (80-94); Mean Platelet Vol. 8.3 fl (6.2-12.0); Monocyte# 0.43 X10^3/uL; Monocyte% 10.3 % (0-10); NRBC Flagged by Analyzer 0 % (0-5); Neutrophil # 2.26 X10^3/uL (2.7-7.7); Neutrophil % 54.1 % (47-70); Platelet Count 277 K/mm3 (150-450); RBC Distribution Width CV 13.5 % (11.6-14.6); Red Blood Count 4.64 M/mm3 (4.6-6.2); White Blood Count 4.2 K/mm3 (4.4-11.0)
[2022-03-26 15:46] LABS: Prothrombin Time (Protime)PT. 13.2 SECONDS (11.7-14.9)
[2022-03-26 15:55] LABS: ALB/GLOB Ratio 0.9 RATIO (0.9-2.4); AST(SGOT) 43 U/L (15-37); Alanine Aminotransfer ALT/SGPT 81 U/L (16-61); Albumin, Serum 3.6 g/dL (3.2-5.0); Alkaline Phosphatase 203 U/L (45-117); Anion Gap 9 (5-15); BUN 19 mg/dL (7-18); BUN/Creat Ratio 92.2 RATIO (10-20); CRP 3.01 mg/L (0.0-3.0); Calcium,Total 9.7 mg/dL (8.5-10.1); Chloride 104 mmol/L (98-107); Creatinine, Serum 0.21 mg/dL (0.70-1.30); EST Glomerular Filtration Rate 499 mL/min (>60); Est Glom Filt Rate - Afr Amer 603 mL/min (>60); Ferritin 48 ng/mL (26-388); Globulin 4.2 g/dL (2.2-4.2); Glucose 102 mg/dL (74-106); LDH 162 U/L (87-241); Potassium 4.2 mmol/L (3.5-5.1); Protein, Total 7.8 g/dL (6.4-8.2); Sodium Level 139 mmol/L (136-145)
[2022-03-26 16:07] LABS: HIV - WCH Non-Reactive (Nonreactive)
[2022-03-26 16:32] LABS: Erythrocyte Sedimentation Rate 31 mm/hr (0-20)
[2022-03-26 17:06] LABS: Hemoglobin A1c 4.8 % (3.8-5.6)
[2022-03-29 16:08] LABS: Anti-Centromere B Ab <0.2 AI (0.0-0.9); Anti-Chromatin <0.2 AI (0.0-0.9); Anti-Jo <0.2 AI (0.0-0.9); Anti-Scleroderma-70 AB <0.2 AI (0.0-0.9); RNP Ab <0.2 AI (0.0-0.9); SJOGREN'S Anti-SS-A test < 0.2 AI (0.0-0.9); SJOGREN'S Anti-SS-B test < 0.2 AI (0.0-0.9); Smith Ab <0.2 AI (0.0-0.9)
[2022-03-29 19:38] LABS: Anti-Mitochondrial AB <20.0 Units (0.0-20.0); Anti-dsDNA Ab <1 IU/mL (0-9)
== END | disposition home or self-care (01) ==
LOC: MTLAB 13:10
PROVIDERS: Internal Medicine Gastroenterology; PCP Internal Medicine; Referring Provider Internal Medicine; Visit Provider Internal Medicine
DX: R74.8 Abnormal levels of other serum enzymes (principal)
CPT/HCPCS: 80053; 80074; 82105; 82140; 82164; 82390; 82525; 82728; 83010; 83036; 83516; 83615; 85025; 85610; 85652; 86140; 86225; 86235; 86256; 86703

== ENCOUNTER → 2022-04-12 | Outpatient (CLI) | payer OTHER, MEDICAID, SELFPAY ==
--- NOTE | 2022-04-12 10:14 | US_ITS ---
STUDY: ABDOMINAL ULTRASOUND - ELASTOGRAPHY REASON FOR VISIT: Male, 61 years old. Elevated liver enzymes. TECHNIQUE: Liver stiffness measurements were obtained on a [email or web address] RS 85 ultrasound machine using a CA 1-7 probe following the SRU guidelines. 3 measurements were obtained using a 2-D-SWE method. The IQR/M was 19% suggesting a quality data set. TECHNICAL QUALITY: Adequate. COMPARISON: Comparison is made with prior examination dated 03/08/2022. FINDINGS: Liver: There is no demonstrated mass lesion. Median liver stiffness measured 7.2 kPa. US/Elastography Parenchyma/Organ IMPRESSION: Liver stiffness measures 7.2 kPa compatible with F2-F3 (Mild to moderate liver fibrosis) Metavir score. Electronically Signed: Mikey Angeles MD at 15:11 EST ,
== END | disposition home or self-care (01) ==
LOC: US 10:13
PROVIDERS: PCP Internal Medicine; Visit Provider Internal Medicine Gastroenterology
DX: R74.8 Abnormal levels of other serum enzymes (principal)
CPT/HCPCS: 76981

== ENCOUNTER 2022-04-18 11:55 | Emergency (ER) | payer OTHER, MEDICAID, SELFPAY ==
[2022-04-18 11:57] VITALS: PULSE 71; RESP 27; TEMP 36.1; O2SAT 99; BMI 29.0
--- NOTE | 2022-04-18 12:37 | RAD_ITS ---
STUDY: X-RAY CHEST REASON FOR EXAM: Male, 61 years old. Cough TECHNIQUE: Single AP portable view of the chest. COMPARISON: Comparison is made with prior study dated 03/08/2022. FINDINGS: A tracheostomy tube is in situ. This is unchanged. EKG electrodes are seen. Mild degree of increased markings at the lung bases slightly more prominent on the left side suggestive of bibasilar atelectasis. There is no demonstrated pleural abnormality. A left-sided dual-chamber pacemaker is seen. Normal mediastinum and julissa. Normal visualized pulmonary arteries. Normal visualized aortic arch and descending thoracic aorta. Normal visualized thoracic spine. Normal visualized ribs, clavicles, and shoulders. There is no demonstrated abnormality of the visualized soft tissue structures of the upper abdomen. RAD/Chest 1 View (Portable) IMPRESSION: Findings suggest a mild degree of bibasilar atelectasis slightly worse on the left side. Electronically Signed: Mikey Angeles MD at 13:39 EST ,
--- NOTE | 2022-04-18 12:38 | EKG12_ITS ---
Test Reason : CP Blood Pressure : / mmHG Vent. Rate : 074 BPM Atrial Rate : 074 BPM P-R Int : 218 ms QRS Dur : 166 ms QT Int : 440 ms P-R-T Axes : 025 245 042 degrees QTc Int : 488 ms Atrial-sensed ventricular-paced rhythm with prolonged AV conduction Abnormal ECG Confirmed by CHARITY JOHNSON, RAMÓN ([id number]), editor greeting card LUCIANA GARCIA ([id number]) on 04/19/2022 11:01:04 AM Referred By: CATALINO/CARLOS Confirmed By:RAMÓN NASH MD
--- NOTE | 2022-04-18 12:43 | EDS_ITS ---
HPI History of Present Illness Chief Complaint: Chest Pain Informant: patient and spouse/S.O. Narrative Narrative: Here transient chest pain this morning. History of muscular dystrophy bed ridden. Reports had influenza symptoms on Friday with fevers myalgias and cough. Seen urgent care Friday started on Tamiflu. Report after starting noticing redness in his left groin and leg therefore stopped. Clinically states her symptoms are improved. However this morning reported had some transient chest pains. He has a pacemaker history of sick sinus syndrome and heart block. He has a PEG tube for feeds. He gets scheduled morphine due to chronic pains in his back from fractures and his muscular dystrophy. He is due for his medications. States having pains due to this chronic symptoms. They are concerned also had a blood pressure read of 89 over 50s this morning. There is no recent vomiting or diarrhea. Blood pressure is normal on arrival. Reported he had organ injury from hypotension in the past and they were concerned. He currently feels back to his normal self. [facility] Medical History Acute respiratory failure Altered mental status Anemia Anxiety Back pain Back pain Cardiology follow-up encounter Cardiomyopathy Carotid artery calcification Chest pain Chest pain Chronic hypoxemic respiratory failure Chronic low back pain Complete heart block Compression fracture of thoracic spine, non-traumatic Depression Diarrhea Dietary restriction Difficulty balancing Dilated cardiomyopathy Frequent headaches GERD (gastroesophageal reflux disease) Heart disease Hereditary progressive muscular dystrophy History of echocardiogram History of edema History of IBS History of urinary calculi Hypertension Hyponatremia Injury of head and neck Irritable bowel syndrome Kidney stones Limb weakness Malfunction of gastrostomy tube MRSA (methicillin resistant 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) colonization Muscular dystrophy Non-smoker Non-ST elevation NV (NSTEMI) On home oxygen therapy Otitis interna PEG tube malfunction Pneumonia Pneumonia Pseudomonas pneumonia Shoulder pain Sick sinus syndrome SOB (shortness of breath) Thyroid disease Troponin I above reference range Uses wheelchair Ventilator dependent Home Medications cholecalciferol (vitamin D3) 25 mcg (1,000 unit) tablet 2,000 unit feeding tube DAILY SUPPLEMENT 07/01/14 [History Last Taken 10/30/21] aspirin 81 mg chewable tablet 81 mg feeding tube DAILY@0800 HEART HEATLTH 03/09/15 [History Last Taken 10/30/21] sennosides 8.6 mg tablet 1 tab feeding tube BID PRN Constipation 03/09/15 [History Last Taken 10/30/21] bacitracin 500 unit/gram topical packet 1 applic topical PRN PRN Skin Cleansing 07/05/17 [History Last Taken Unknown] aluminum-mag hydroxide-simethicone 400 mg-400 mg-40 mg/5 mL oral susp 20 ml PO PRN PRN gastric distress 07/07/18 [History Last Taken Unknown] naproxen sodium 220 mg capsule 220 mg G-tube BID PRN PRN Pain 07/07/18 [History Last Taken 10/29/21] cyclobenzaprine 10 mg tablet 10 mg feeding tube BID PRN PRN Spasms 07/10/18 [History Last Taken 10/29/21] hydrocodone 10 mg-acetaminophen 325 mg tablet 10 - 325 tab feeding tube PRN PRN Pain 07/10/18 [History Last Taken 10/30/21 09:30] dextromethorphan-guaifenesin 5 mg-100 mg/5 mL oral liquid (Child Robitussin Cough-Chest DM) 10 ml feeding tube Q6H PRN Muscle Spasticity 02/11/20 [History Last Taken Unknown] albuterol sulfate 2.5 mg/3 mL (0.083 %) solution for nebulization 2.5 mg (3 mL) inhalation Q4H PRN PRN Sob &/Or Wheezing #180 mL 09/27/20 [Rx Last Taken Unknown] sodium chloride 0.9 % for nebulization 1 ml inhalation Q8H PRN thick secretions 04/10/21 [History Last Taken Unknown] zinc oxide 10 % topical ointment 1 applic topical BID-QID PRN Skin Cleansing 04/10/21 [History Last Taken Unknown] albuterol sulfate 90 mcg/actuation aerosol inhaler (ProAir HFA) 2 puff inhalation TID PRN sob 08/06/21 [History Last Taken Unknown] ferrous sulfate 15 mg iron (75 mg)/mL oral drops (Henry-In-Domonique) 1 ml PO BID 08/13/21 [History Last Taken 10/30/21] guaifenesin 200 mg/5 mL oral liquid 200 mg feeding tube Q4H PRN cough 08/13/21 [History Last Taken Unknown] buspirone 30 mg tablet 30 mg feeding tube BID ANXIETY #180 tabs 09/10/21 [Rx Last Taken 10/30/21] morphine 20 mg/5 mL (4 mg/mL) oral solution 20 mg PO Q6H PRN Pain 09/21/21 [History Last Taken 10/30/21 08:00] nystatin 100,000 unit/gram topical cream 1 applic topical BID PRN redness 09/21/21 [History Last Taken Unknown] glycerin (adult) 1 supp KS BID PRN Constipation 10/30/21 [History Last Taken 10/30/21] glycerin (adult) (Fleet Glycerin (Adult) rectal suppository) 1 supp KS DAILY PRN Constipation 10/30/21 [History Last Taken Unknown] psyllium husk (aspartame) 3.4 gram/5.8 gram oral powder (Metamucil Sugar-Free (aspartame)) 3 g PO TID PRN Constipation 10/30/21 [History Last Taken Unknown] sertraline 20 mg/mL oral concentrate 50 mg feeding tube QHS 10/30/21 [History Last Taken 10/29/21] lansoprazole 30 mg delayed release,disintegrating tablet See Rx Instructions .Route .COMPLEX #30 TABLETS 12/03/21 [Rx Last Taken Unknown] sodium bicarbonate 1 mEq/mL (8.4 %) intravenous solution See Rx Instructions .Route .COMPLEX #500 mL 12/03/21 [Rx Last Taken Unknown] polyethylene glycol 3350 17 gram oral powder packet (Miralax) 17 g PO BID PRN Constipation #100 ea 01/17/22 [Rx Last Taken Unknown] glycopyrrolate 1 mg tablet 1.5 mg feeding tube BID GI #135 tabs 03/20/22 [Rx Last Taken Unknown] lisinopril 10 mg tablet 10 mg PO DAILY #90 tabs 04/09/22 [Rx Last Taken Unknown] oseltamivir 75 mg capsule (Tamiflu) 75 mg PO Q12H 5 days #10 caps 04/16/22 [Rx Last Taken Unknown] Allergy/AdvReac Type Severity Reaction Status Date / Time No Known Allergies Allergy Verified 04/18/22 11:57 Family History Mother Heart disease Myocardial infarction Arthritis Depression Father Thyroid cancer Myocardial infarction Parkinson disease Arthritis Sister Thyroid cancer Arthritis Surgical History Gastrointestinal tube in situ History of esophagogastroduodenoscopy (EGD) History of hemorrhoidectomy History of release of tendon Presence of cardiac pacemaker Tracheostomy tube present (~2013) Social History Smoking Status: Never smoker second hand exposure: No alcohol intake: never substance use type: does not use caffeine: Yes Type: coffee what type of physical activity do you participate in: none ROS ROS ED Constitutional Constitutional ED: Denies chills, fever(s) or sweats Eyes Eyes: Denies change in vision ENT ENT ED: Denies dysphagia or sore throat Cardiovascular Cardiovascular: Reports chest pain; Denies leg edema, palpitations or racing heartbeat Respiratory/Chest Respiratory/Chest: Denies cough, dyspnea or dyspnea on exertion Gastrointestinal Gastrointestinal: Denies abdominal pain, diarrhea, nausea or vomiting Genitourinary Genitourinary ED: Denies dysuria, hematuria or urinary frequency Musculoskeletal Musculoskeletal: Denies back pain, extremity pain or neck pain Integumentary Denies rash or wounds Neurologic Neurologic: Denies headache(s), paresthesias or weakness EXAM Physical Exam Const Vital Signs: 04/18/22 11:57 04/18/22 12:05 04/18/22 14:40 Temperature 97.0 F L Temperature Source Temporal Pulse Rate 71 63 Respiratory Rate 27 H 25 H Respiratory Effort Short of Breath Respiratory Pattern Tachypnea Blood Pressure 115/63 Blood Pressure Mean 80 Pulse Ox 99 91 Oxygen Delivery Method Room Air Positive well nourished and well developed General Appearance ED: well developed and NAD HEENT Reports moist mucous membranes normocephalic and atraumatic Eyes PERRL, EOMs intact bilaterally and conjunctivae normal General Eye ED: Yes normal appearance of both eyes Neck no lymphadenopathy and supple Neck Narrative: Tracheostomy tube, clean, dry intact, no current connections required. Oxygenation. General: Negative for tenderness Chest Wall Chest: Negative for tenderness Resp normal respiratory effort and normal air movement Effort and Inspection: symmetric chest movement; Negative for respiratory distress Cardio regular rate, regular rhythm and no murmurs Peripheral Pulses: pulses 2+ throughout GI normal to inspection, nondistended, normoactive bowel sounds and non-tender GI Narrative: PEG tube: Clean, dry, intact. Soft abdomen. Nondistended. Palpation: Negative for guarding or rebound tenderness present Back/Spine no CVA tenderness and no thoracic nor lumbar tenderness Extremity Extremity Narrative: Atrophy of lower extremities. Left leg weakness slight redness down the leg however all blanches. Nontender. No indurations. General Extremety ED: Negative for edema or tenderness General Extremity: Negative for edema Neuro oriented x3 and no sensory deficits noted Sensorium / Orientation: awake and alert Skin Skin Narrative: See above MDM MDM MDM Narrative Medical decision making narrative: Patient reports transient chest pain, EKG is paced rhythm. Report concerns for hypotension however is not normal in the ED. On arrival he is concerned more of his chronic pain. He was given IV morphine. He is also allowed take his home morphine dose. With his chest pains cardiac work-up initiated initial troponin at 9. Other labs only significant sodium 133. Chest x-ray 1 view reviewed by myself read by radiology atelectasis without infiltrate on the left side. Remained symptom-free blood pressure is stable. Awaiting 2-hour troponin. Reviewing records he had type II heart strain last month from [place] status with elevated troponins in the 500s. Currently down to 9. Repeat is pending. I suspect this repeat will be normal he can be discharged home with outpatient follow-up. Lab Data Attestation: I reviewed the patient's lab results. Labs: Laboratory Results - last 24 hr 04/18/22 04/18/22 04/18/22 12:50 12:50 15:05 WBC 9.3 RBC 4.64 Hgb 14.6 Hct 44.5 MCV 95.9 H MCH 31.5 MCHC 32.8 RDW Std Deviation 47.5 H RDW Coeff of Lily 13.3 Plt Count 183 MPV 8.8 Immature Gran % (Auto) 0.600 Neut % (Auto) 71.3 H Lymph % (Auto) 18.0 L Knox % (Auto) 9.8 Eos % (Auto) 0.1 Baso % (Auto) 0.2 Absolute Neuts (auto) 6.6 Absolute Lymphs (auto) 1.67 Nucleated RBC % 0 Sodium 133 L Potassium 4.5 Chloride 101 Carbon Dioxide 29.0 Anion Gap 3 L BUN 25 H Creatinine 0.24 L Estim Creat Clear Calc 323.22 Est GFR (MDRD) Af Amer 513 Est GFR (MDRD) Non-Af 424 BUN/Creatinine Ratio 105.5 H Glucose 110 H Calcium 9.3 Troponin I High Sens 9 Cancelled Radiography Diagnostic Testing: Clinical Impression(s) from Imaging Studies Chest X-Ray 04/18/22 12:37 IMPRESSION: Findings suggest a mild degree of bibasilar atelectasis slightly worse on the left side. Electronically Signed: Mikey Angeles MD at 13:39 EST , EKG Initial EKG: Attestation: I personally reviewed and interpreted this EKG as follows: Comments: Paced rhythm rate of 74, no acute changes. Discharge Plan Triage Chief Complaint: Chest Pain ED Provider: Omi Lockhart Dx/Rx/DC Orders Clinical Impression: Chest pain, Presence of cardiac pacemaker, Muscular dystrophy Instructions: Muscular Dystrophy, ED Chest Pain, Uncertain Cause Prescriptions: No Action bacitracin 500 unit/gram packet 1 applic TOPICAL PRN PRN (Reason: Skin Cleansing) Chld Robitussin Cough-Chest DM 5-100 mg/5 mL liquid 10 ml feeding tube Q6H PRN (Reason: Muscle Spasticity) albuterol sulfate 2.5 mg /3 mL (0.083 %) solution for nebulization 2.5 mg inhalation Q4H PRN PRN (Reason: Sob &/Or Wheezing) Qty: 180 6RF zinc oxide 10 % ointment 1 applic topical BID-QID PRN (Reason: Skin Cleansing) sodium chloride 0.9 % solution for nebulization 1 ml inhalation Q8H PRN (Reason: thick secretions) nystatin 100,000 unit/gram cream 1 applic topical BID PRN (Reason: redness) albuterol sulfate [ProAir HFA] 90 mcg/actuation HFA aerosol inhaler 2 puff inhalation TID PRN (Reason: sob) morphine 20 mg/5 mL (4 mg/mL) solution 20 mg PO Q6H PRN (Reason: Pain) oseltamivir [Tamiflu] 75 mg capsule 75 mg PO Q12H 5 Days Qty: 10 0RF cholecalciferol (vitamin D3) 1,000 UNIT tablet 2,000 unit feeding tube DAILY sennosides 1 TABLET tablet 1 tab feeding tube BID PRN (Reason: Constipation) aspirin 81 MG tablet,chewable 81 mg feeding tube DAILY@0800 alum-mag hydroxide-simeth 30 ML suspension 20 ml PO PRN PRN (Reason: gastric distress) naproxen sodium 220 MG capsule 220 mg G-tube BID PRN PRN (Reason: Pain) cyclobenzaprine 10 MG tablet 10 mg feeding tube BID PRN PRN (Reason: Spasms) hydrocodone-acetaminophen 1 EACH tablet 10 - 325 tab feeding tube PRN PRN (Reason: Pain) Label Comments: take 1 tablet by mouth three times a day if needed guaifenesin 200 mg/5 mL liquid 200 mg feeding tube Q4H PRN (Reason: cough) ferrous sulfate [Henry-In-Domonique] 15 mg iron (75 mg)/mL drops 1 ml PO BID glycerin (adult) Suppository 1 supp KS BID PRN (Reason: Constipation) glycerin (adult) [Fleet Glycerin (Adult)] Suppository 1 supp KS DAILY PRN (Reason: Constipation) Metamucil Sugar-Free (aspart) 3.4 gram/5.8 gram Powder 3 g PO TID PRN (Reason: Constipation) sertraline 20 mg/mL concentrate 50 mg feeding tube QHS buspirone 30 mg tablet 30 mg feeding tube BID Qty: 180 3RF lansoprazole 30 mg tablet,disintegrat, delay rel See Rx Instructions .ROUTE .COMPLEX Qty: 30 11RF Dose Instruction: DISSOLVE 1 TABLET IN WATER AND ADMINISTER THROUGH PEG TUBE ONCE DAILY Rx Instructions: DISSOLVE 1 TABLET IN WATER AND ADMINISTER THROUGH PEG TUBE ONCE DAILY sodium bicarbonate 1 mEq/mL (8.4 %) solution See Rx Instructions .ROUTE .COMPLEX Qty: 500 11RF Dose Instruction: COMBINE ONE LANSOPRAZOLE CAPSULE WITH 10 milliliters SODIUM BICARBONATE AND ADMINISTER THROUGH ENTERAL FEED TUBE Rx Instructions: COMBINE ONE LANSOPRAZOLE CAPSULE WITH 10 milliliters SODIUM BICARBONATE AND ADMINISTER THROUGH ENTERAL FEED TUBE polyethylene glycol 3350 [Miralax] 17 gram powder in packet 17 g PO BID PRN (Reason: Constipation) Qty: 100 2RF glycopyrrolate 1 mg tablet 1.5 mg feeding tube BID Qty: 135 3RF lisinopril 10 mg tablet 10 mg PO DAILY Qty: 90 1RF Primary Care Provider: Tyesha Latif Referrals: Tyesha Latif MD [Primary Care Provider] - 3-5 Days
[2022-04-18] MEDS: Morphine 4 MG/ML Syringe IV (12:50)
[2022-04-18 13:05] LABS: Absolute Lymphocyte Count 1.67 X10^3/uL (0.83-4.51); Absolute Neutrophil Count 6.6 X10^3/uL (2.0-7.7); Basophil# 0.02 X10^3/uL; Basophil% 0.2 % (0-1); Eosinophil# 0.01 X10^3/uL; Eosinophils% 0.1 % (0-5); Hematocrit 44.5 % (40-54); Hemoglobin 14.6 g/dL (13.0-16.5); Lymphocyte # 1.67 X10^3/ul (0.83-4.51); Mean Corp Hgb Conc 32.8 g/dL (32-36); Mean Corpuscular Hgb 31.5 pg (27.0-32.0); Mean Corpuscular Volume 95.9 fL (80-94); Mean Platelet Vol. 8.8 fl (6.2-12.0); Monocyte# 0.91 X10^3/uL; Monocyte% 9.8 % (0-10); NRBC Flagged by Analyzer 0 % (0-5); Neutrophil # 6.63 X10^3/uL (2.7-7.7); Neutrophil % 71.3 % (47-70); Platelet Count 183 K/mm3 (150-450); RBC Distribution Width CV 13.3 % (11.6-14.6); RBC Distribution Width SD 47.5 fl (35.1-43.9); Red Blood Count 4.64 M/mm3 (4.6-6.2); White Blood Count 9.3 K/mm3 (4.4-11.0)
[2022-04-18 13:21] LABS: Anion Gap 3 (5-15); BUN 25 mg/dL (7-18); BUN/Creat Ratio 105.5 RATIO (10-20); Calcium,Total 9.3 mg/dL (8.5-10.1); Chloride 101 mmol/L (98-107); Creatinine, Serum 0.24 mg/dL (0.70-1.30); EST Glomerular Filtration Rate 424 mL/min (>60); Est Glom Filt Rate - Afr Amer 513 mL/min (>60); Glucose 110 mg/dL (74-106); Potassium 4.5 mmol/L (3.5-5.1); Sodium Level 133 mmol/L (136-145); Troponin-I HS (w/2H Reflex) 9 pg/mL (3.0-78.0)
[2022-04-18 14:40] VITALS: BP 115/63; PULSE 63; RESP 25; O2SAT 91
[2022-04-18 14:57] LABS: Reflex Troponin-HS? (from REC) Y
[2022-04-18 16:41] LABS: Troponin-I HS 9 pg/mL (3.0-78.0)
== END 2022-04-18 17:23 | disposition home or self-care (01) ==
PROVIDERS: Emergency Provider Emergency Medicine; PCP Internal Medicine; Visit Provider Emergency Medicine
DX: R07.9 Chest pain, unspecified (principal); G71.00 Muscular dystrophy, unspecified; I25.2 Old myocardial infarction; Z99.81 Dependence on supplemental oxygen; Z95.0 Presence of cardiac pacemaker
CPT/HCPCS: 36415; 71045; 80048; 84484; 85025; 93005; 96361; 96374; 99285; J7030; A4216

== ENCOUNTER 2022-05-04 11:56 | Emergency (ER) | payer OTHER, MEDICAID, SELFPAY ==
[2022-05-04 11:58] VITALS: BP 160/95; PULSE 92; RESP 30; TEMP 35.8; O2SAT 98; BMI 23.9
[2022-05-04 12:08] VITALS: O2SAT 98
--- NOTE | 2022-05-04 12:08 | EKG12_ITS ---
Test Reason : CP VS CONSTIPATION Blood Pressure : / mmHG Vent. Rate : 094 BPM Atrial Rate : 094 BPM P-R Int : 164 ms QRS Dur : 184 ms QT Int : 424 ms P-R-T Axes : 014 231 035 degrees QTc Int : 530 ms Atrial-sensed ventricular-paced rhythm Abnormal ECG Confirmed by HERMILO JOHNSON, [place] ([id number]), online editor LUCIANA GARCIA ([id number]) on 05/07/2022 10:38:23 AM Referred By: GLADIS/DEXTER Confirmed By:[place] AKHTAR MD
--- NOTE | 2022-05-04 12:09 | RAD_ITS ---
STUDY: X-RAY - ACUTE ABDOMINAL SERIES REASON FOR EXAM: Male, 61 years old. Pain TECHNIQUE: Single view of the chest. Supine, and erect view(s) of the abdomen were obtained. 5 total views obtained COMPARISON: None. FINDINGS: Satisfactory appearance of the tracheostomy tube. EKG leads overlie the chest. Stable appearance of a left subclavian pacemaker Lungs are underexpanded without a superimposed acute pulmonary process Normal size heart. Normal mediastinum and julissa. Normal visualized pulmonary arteries. Normal visualized aortic arch and descending thoracic aorta. Borderline dilated loops of small and large bowel all 4 quadrants of the abdomen consistent with ileus. The soft tissue structures of the abdomen and pelvis are unremarkable. There are diffuse degenerative changes of the visualized lumbar spine. ''S right upper quadrant catheter, right-sided PEG tube noted RAD/Acute Abdomen Inc Chest IMPRESSION: No acute pulmonary process Abdominal ileus Satisfactory appearance of the support lines and tubes Electronically Signed: Duc Putnam MD at 14:25 EST ,
--- NOTE | 2022-05-04 12:09 | EX.ED.DYSGE1 ---
HPI History of Present Illness Chief Complaint: Chest Pain Narrative Narrative: 61-year-old male with multiple medical problems ranging from muscular dystrophy, has PEG tube and trach for chronic respiratory failure, presents with multiple somatic complaints. His main concern is that he states he cannot urinate for the last few hours. He is having abdominal discomfort. Additionally he has gas and constipation pains in his abdomen because he states he takes opiates from pain management for chronic low back pain. He also states that he has had chest pain since 11:00 intermittently. He also has past medical history of frequent headaches, states he has a headache now. However, when questioned his main concern is that he wants something done about the gas pains and constipation although he had a bowel movement at 1:00 this morning with the help of glycerin suppositories. He states he is having problems urinating. [facility] Medical History Acute respiratory failure Altered mental status Anemia Anxiety Back pain Back pain Cardiology follow-up encounter Cardiomyopathy Carotid artery calcification Chest pain Chest pain Chronic hypoxemic respiratory failure Chronic low back pain Complete heart block Compression fracture of thoracic spine, non-traumatic Depression Diarrhea Dietary restriction Difficulty balancing Dilated cardiomyopathy Frequent headaches GERD (gastroesophageal reflux disease) Heart disease Hereditary progressive muscular dystrophy History of echocardiogram History of edema History of IBS History of urinary calculi Hypertension Hyponatremia Injury of head and neck Irritable bowel syndrome Kidney stones Limb weakness Malfunction of gastrostomy tube MRSA (methicillin resistant 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) colonization Muscular dystrophy Non-smoker Non-ST elevation AR (NSTEMI) On home oxygen therapy Otitis interna PEG tube malfunction Pneumonia Pneumonia Pseudomonas pneumonia Shoulder pain Sick sinus syndrome SOB (shortness of breath) Thyroid disease Troponin I above reference range Uses wheelchair Ventilator dependent Home Medications cholecalciferol (vitamin D3) 25 mcg (1,000 unit) tablet 2,000 unit feeding tube DAILY SUPPLEMENT 07/01/14 [History Last Taken 10/30/21] aspirin 81 mg chewable tablet 81 mg feeding tube DAILY@0800 HEART HEATLTH 03/09/15 [History Last Taken 10/30/21] sennosides 8.6 mg tablet 1 tab feeding tube BID PRN Constipation 03/09/15 [History Last Taken 10/30/21] bacitracin 500 unit/gram topical packet 1 applic topical PRN PRN Skin Cleansing 07/05/17 [History Last Taken Unknown] aluminum-mag hydroxide-simethicone 400 mg-400 mg-40 mg/5 mL oral susp 20 ml PO PRN PRN gastric distress 07/07/18 [History Last Taken Unknown] naproxen sodium 220 mg capsule 220 mg G-tube BID PRN PRN Pain 07/07/18 [History Last Taken 10/29/21] cyclobenzaprine 10 mg tablet 10 mg feeding tube BID PRN PRN Spasms 07/10/18 [History Last Taken 10/29/21] hydrocodone 10 mg-acetaminophen 325 mg tablet 10 - 325 tab feeding tube PRN PRN Pain 07/10/18 [History Last Taken 10/30/21 09:30] dextromethorphan-guaifenesin 5 mg-100 mg/5 mL oral liquid (Child Robitussin Cough-Chest DM) 10 ml feeding tube Q6H PRN Muscle Spasticity 02/11/20 [History Last Taken Unknown] albuterol sulfate 2.5 mg/3 mL (0.083 %) solution for nebulization 2.5 mg (3 mL) inhalation Q4H PRN PRN Sob &/Or Wheezing #180 mL 09/27/20 [Rx Last Taken Unknown] sodium chloride 0.9 % for nebulization 1 ml inhalation Q8H PRN thick secretions 04/10/21 [History Last Taken Unknown] zinc oxide 10 % topical ointment 1 applic topical BID-QID PRN Skin Cleansing 04/10/21 [History Last Taken Unknown] albuterol sulfate 90 mcg/actuation aerosol inhaler (ProAir HFA) 2 puff inhalation TID PRN sob 08/06/21 [History Last Taken Unknown] ferrous sulfate 15 mg iron (75 mg)/mL oral drops (Henry-In-Domonique) 1 ml PO BID 08/13/21 [History Last Taken 10/30/21] guaifenesin 200 mg/5 mL oral liquid 200 mg feeding tube Q4H PRN cough 08/13/21 [History Last Taken Unknown] buspirone 30 mg tablet 30 mg feeding tube BID ANXIETY #180 tabs 09/10/21 [Rx Last Taken 10/30/21] morphine 20 mg/5 mL (4 mg/mL) oral solution 20 mg PO Q6H PRN Pain 09/21/21 [History Last Taken 10/30/21 08:00] nystatin 100,000 unit/gram topical cream 1 applic topical BID PRN redness 09/21/21 [History Last Taken Unknown] glycerin (adult) 1 supp AK BID PRN Constipation 10/30/21 [History Last Taken 10/30/21] glycerin (adult) (Fleet Glycerin (Adult) rectal suppository) 1 supp AK DAILY PRN Constipation 10/30/21 [History Last Taken Unknown] psyllium husk (aspartame) 3.4 gram/5.8 gram oral powder (Metamucil Sugar-Free (aspartame)) 3 g PO TID PRN Constipation 10/30/21 [History Last Taken Unknown] sertraline 20 mg/mL oral concentrate 50 mg feeding tube QHS 10/30/21 [History Last Taken 10/29/21] lansoprazole 30 mg delayed release,disintegrating tablet See Rx Instructions .Route .COMPLEX #30 TABLETS 12/03/21 [Rx Last Taken Unknown] sodium bicarbonate 1 mEq/mL (8.4 %) intravenous solution See Rx Instructions .Route .COMPLEX #500 mL 12/03/21 [Rx Last Taken Unknown] polyethylene glycol 3350 17 gram oral powder packet (Miralax) 17 g PO BID PRN Constipation #100 ea 01/17/22 [Rx Last Taken Unknown] glycopyrrolate 1 mg tablet 1.5 mg feeding tube BID GI #135 tabs 03/20/22 [Rx Last Taken Unknown] lisinopril 10 mg tablet 10 mg PO DAILY #90 tabs 04/09/22 [Rx Last Taken Unknown] Allergy/AdvReac Type Severity Reaction Status Date / Time No Known Allergies Allergy Verified 05/04/22 12:08 Family History Mother Heart disease Myocardial infarction Arthritis Depression Father Thyroid cancer Myocardial infarction Parkinson disease Arthritis Sister Thyroid cancer Arthritis Surgical History Gastrointestinal tube in situ History of esophagogastroduodenoscopy (EGD) History of hemorrhoidectomy History of release of tendon Presence of cardiac pacemaker Tracheostomy tube present (~2013) Social History Smoking Status: Never smoker second hand exposure: No alcohol intake: never substance use type: does not use caffeine: Yes Type: coffee what type of physical activity do you participate in: none ROS ROS ED ROS Narrative Constitutional: No fever, no chills. HEENT: No sore throat. No neck pain. No loss of vision. No rhinorrhea. Cardiovascular: Positive chest pain. No palpitations. No pedal edema. Respiratory: No cough, no shortness of breath. Abdominal: No abdominal pain. No nausea. No vomiting. Unable to vomit. Constipated but last bowel movement at 1 AM, almost 12 hours ago with the help of glycerin suppositories. Genitourinary: No dysuria. No hematuria. Unable to urinate/urinary retention for the last few hours. Musculoskeletal: No myalgias. No arthralgias. Neurologic: Positive chronic headaches. No dizziness. No lightheadedness. Skin: No rash. No change in color. Psychiatric: No depression. No anxiety. EXAM Physical Exam Narrative Exam Narrative: Afebrile. Vital signs noted. HEENT: Normocephalic. Atraumatic. PERRL, EOMI. Neck soft and supple. No point tenderness or step off. Tracheostomy with speaking tube in place. Cardiovascular: Regular rate and rhythm. No murmurs, rubs, or gallops appreciated. Respiratory: No tachypnea. Lungs clear to auscultation bilaterally. Gastrointestinal: Abdomen soft, positive discomfort suprapubic area. With normoactive bowel sounds. No rebound or guarding. Positive PEG tube in place without surrounding erythema. Neurological: Awake. Alert. Nonfocal, nonlateralizing. Consistent with muscular dystrophy. Skin: No rash. Normal color. No pallor. Musculoskeletal: No pedal edema. Full range of motion extremities. Const Vital Signs: 05/04/22 11:58 05/04/22 12:06 05/04/22 12:08 Temperature 96.5 F L Temperature Source Temporal Pulse Rate 92 Respiratory Rate 30 H Respiratory Effort Normal Non-Labored Respiratory Pattern Normal Blood Pressure 160/95 H Blood Pressure Mean 116 Pulse Ox 98 98 Oxygen Delivery Method Room Air Room Air 05/04/22 13:56 05/04/22 15:09 05/04/22 15:32 Temperature Temperature Source Pulse Rate 94 114 H 87 Respiratory Rate 24 H 18 21 H Respiratory Effort Respiratory Pattern Blood Pressure 160/91 H 148/90 H Blood Pressure Mean 114 Pulse Ox 100 92 100 Oxygen Delivery Method Room Air Room Air MDM MDM MDM Narrative Medical decision making narrative: Comprehensive work-up was pursued. I reviewed his EMR and previous provider notes. Patient does have chronic medical problems, but it seems his chief complaint today is constipation, gas pains, and inability to urinate/urinary retention. EKG was obtained which demonstrates a paced rhythm at [address] changes. This was interpreted by myself. CBC shows normal white count of 5.5, hemoglobin normal at 16.3 with platelet count normal at 358. Coagulation studies are negative. Sodium slightly low 134, potassium normal at 4.4. BUN slightly elevated at 28 with a creatinine of 0.2 and low. Initial high-sensitivity troponin is 10. 2-hour troponin low at 7. I do not feel that he has cardiac chest pain. He does have a history of previous problems with chest pain and dilated cardiomyopathy. Chest x-ray interpreted by myself was part of the acute abdomen series which I also interpreted. I see evidence of an ileus but no obstruction, no acute process in the chest. This was my interpretation and radiology confirmed. I did review review of the radiology reports. Bladder scan only showed 250 mL of urine in the bladder. He was not in full retention. He was able to take his home opiate medication, but I do think this may be part of his problem with ileus and reported constipation. He has not had nausea and vomiting. He complains of his chronic headache. His is at the bedside who states that he is now able to urinate. He does have a follow-up appointment with urology in the near future. At this point in time, I do feel he can be discharged safely home with follow-up. A lot of his complaints today are chronic in nature including his frequent, chronic headaches, and problems with urination along with previous chest pain. Return instructions to the emergency department were reviewed. is comfortable with the plan. Disposition is discharged home in stable condition. Lab Data Attestation: I reviewed the patient's lab results. Labs: Laboratory Results - last 24 hr 05/04/22 05/04/22 05/04/22 12:12 12:12 12:12 WBC 5.5 RBC 5.11 Hgb 16.3 Hct 48.1 MCV 94.1 H MCH 31.9 MCHC 33.9 RDW Std Deviation 44.6 H RDW Coeff of Lily 12.9 Plt Count 358 MPV 8.0 Immature Gran % (Auto) 0.400 Neut % (Auto) 54.8 Lymph % (Auto) 35.0 Mineral % (Auto) 8.7 Eos % (Auto) 0.4 Baso % (Auto) 0.7 Absolute Neuts (auto) 3.0 Absolute Lymphs (auto) 1.94 Nucleated RBC % 0 PT 13.7 INR 1.1 Sodium 134 L Potassium 4.4 Chloride 102 Carbon Dioxide 27.0 Anion Gap 5 BUN 28 H Creatinine 0.20 L Estim Creat Clear Calc 387.87 Est GFR (MDRD) Af Amer 631 Est GFR (MDRD) Non-Af 522 BUN/Creatinine Ratio 141.4 H Glucose 107 H Calcium 9.0 Troponin I High Sens 10 05/04/22 14:33 WBC RBC Hgb Hct MCV MCH MCHC RDW Std Deviation RDW Coeff of Lily Plt Count MPV Immature Gran % (Auto) Neut % (Auto) Lymph % (Auto) Mineral % (Auto) Eos % (Auto) Baso % (Auto) Absolute Neuts (auto) Absolute Lymphs (auto) Nucleated RBC % PT INR Sodium Potassium Chloride Carbon Dioxide Anion Gap BUN Creatinine Estim Creat Clear Calc Est GFR (MDRD) Af Amer Est GFR (MDRD) Non-Af BUN/Creatinine Ratio Glucose Calcium Troponin I High Sens 7 Radiography Diagnostic Testing: Clinical Impression(s) from Imaging Studies Acute Abdomen Series 05/04/22 12:09 IMPRESSION: No acute pulmonary process Abdominal ileus Satisfactory appearance of the support lines and tubes Electronically Signed: Duc Putnam MD at 14:25 EST , Discharge Plan Triage Chief Complaint: Chest Pain ED Provider: Marin Del Rosario Dx/Rx/DC Orders Clinical Impression: Chest pain, Ileus, Difficulty urinating, Muscular dystrophy, Frequent headaches Instructions: Ileus, ED Chest Pain, Uncertain Cause Prescriptions: No Action bacitracin 500 unit/gram packet 1 applic TOPICAL PRN PRN (Reason: Skin Cleansing) Chld Robitussin Cough-Chest DM 5-100 mg/5 mL liquid 10 ml feeding tube Q6H PRN (Reason: Muscle Spasticity) albuterol sulfate 2.5 mg /3 mL (0.083 %) solution for nebulization 2.5 mg inhalation Q4H PRN PRN (Reason: Sob &/Or Wheezing) Qty: 180 6RF zinc oxide 10 % ointment 1 applic topical BID-QID PRN (Reason: Skin Cleansing) sodium chloride 0.9 % solution for nebulization 1 ml inhalation Q8H PRN (Reason: thick secretions) nystatin 100,000 unit/gram cream 1 applic topical BID PRN (Reason: redness) albuterol sulfate [ProAir HFA] 90 mcg/actuation HFA aerosol inhaler 2 puff inhalation TID PRN (Reason: sob) morphine 20 mg/5 mL (4 mg/mL) solution 20 mg PO Q6H PRN (Reason: Pain) cholecalciferol (vitamin D3) 1,000 UNIT tablet 2,000 unit feeding tube DAILY sennosides 1 TABLET tablet 1 tab feeding tube BID PRN (Reason: Constipation) aspirin 81 MG tablet,chewable 81 mg feeding tube DAILY@0800 alum-mag hydroxide-simeth 30 ML suspension 20 ml PO PRN PRN (Reason: gastric distress) naproxen sodium 220 MG capsule 220 mg G-tube BID PRN PRN (Reason: Pain) cyclobenzaprine 10 MG tablet 10 mg feeding tube BID PRN PRN (Reason: Spasms) hydrocodone-acetaminophen 1 EACH tablet 10 - 325 tab feeding tube PRN PRN (Reason: Pain) Label Comments: take 1 tablet by mouth three times a day if needed guaifenesin 200 mg/5 mL liquid 200 mg feeding tube Q4H PRN (Reason: cough) ferrous sulfate [Henry-In-Domonique] 15 mg iron (75 mg)/mL drops 1 ml PO BID glycerin (adult) Suppository 1 supp AK BID PRN (Reason: Constipation) glycerin (adult) [Fleet Glycerin (Adult)] Suppository 1 supp AK DAILY PRN (Reason: Constipation) Metamucil Sugar-Free (aspart) 3.4 gram/5.8 gram Powder 3 g PO TID PRN (Reason: Constipation) sertraline 20 mg/mL concentrate 50 mg feeding tube QHS buspirone 30 mg tablet 30 mg feeding tube BID Qty: 180 3RF lansoprazole 30 mg tablet,disintegrat, delay rel See Rx Instructions .ROUTE .COMPLEX Qty: 30 11RF Dose Instruction: DISSOLVE 1 TABLET IN WATER AND ADMINISTER THROUGH PEG TUBE ONCE DAILY Rx Instructions: DISSOLVE 1 TABLET IN WATER AND ADMINISTER THROUGH PEG TUBE ONCE DAILY sodium bicarbonate 1 mEq/mL (8.4 %) solution See Rx Instructions .ROUTE .COMPLEX Qty: 500 11RF Dose Instruction: COMBINE ONE LANSOPRAZOLE CAPSULE WITH 10 milliliters SODIUM BICARBONATE AND ADMINISTER THROUGH ENTERAL FEED TUBE Rx Instructions: COMBINE ONE LANSOPRAZOLE CAPSULE WITH 10 milliliters SODIUM BICARBONATE AND ADMINISTER THROUGH ENTERAL FEED TUBE polyethylene glycol 3350 [Miralax] 17 gram powder in packet 17 g PO BID PRN (Reason: Constipation) Qty: 100 2RF glycopyrrolate 1 mg tablet 1.5 mg feeding tube BID Qty: 135 3RF lisinopril 10 mg tablet 10 mg PO DAILY Qty: 90 1RF Primary Care Provider: Tyesha Latif Referrals: Jose Sena MD [Med Staff - Active Staff] - As soon as possible Tyesha Latif MD [Primary Care Provider] - 3-5 Days Disposition Disposition: Home, Self Care
[2022-05-04 12:27] LABS: Absolute Lymphocyte Count 1.94 X10^3/uL (0.83-4.51); Basophil# 0.04 X10^3/uL; Basophil% 0.7 % (0-1); Eosinophil# 0.02 X10^3/uL; Eosinophils% 0.4 % (0-5); Hematocrit 48.1 % (40-54); Hemoglobin 16.3 g/dL (13.0-16.5); Lymphocyte # 1.94 X10^3/ul (0.83-4.51); Mean Corp Hgb Conc 33.9 g/dL (32-36); Mean Corpuscular Hgb 31.9 pg (27.0-32.0); Mean Corpuscular Volume 94.1 fL (80-94); Monocyte# 0.48 X10^3/uL; Monocyte% 8.7 % (0-10); NRBC Flagged by Analyzer 0 % (0-5); Neutrophil # 3.04 X10^3/uL (2.7-7.7); Neutrophil % 54.8 % (47-70); Platelet Count 358 K/mm3 (150-450); RBC Distribution Width CV 12.9 % (11.6-14.6); RBC Distribution Width SD 44.6 fl (35.1-43.9); Red Blood Count 5.11 M/mm3 (4.6-6.2); White Blood Count 5.5 K/mm3 (4.4-11.0)
[2022-05-04 12:33] LABS: International Normalized Ratio 1.1; Prothrombin Time (Protime)PT. 13.7 SECONDS (11.7-14.9)
[2022-05-04 12:40] LABS: Anion Gap 5 (5-15); BUN 28 mg/dL (7-18); BUN/Creat Ratio 141.4 RATIO (10-20); Chloride 102 mmol/L (98-107); EST Glomerular Filtration Rate 522 mL/min (>60); Est Glom Filt Rate - Afr Amer 631 mL/min (>60); Estimated Creatinine Clearance 387.87 ml/min; Glucose 107 mg/dL (74-106); Potassium 4.4 mmol/L (3.5-5.1); Sodium Level 134 mmol/L (136-145); Troponin-I HS (w/2H Reflex) 10 pg/mL (3.0-78.0)
[2022-05-04 13:56] VITALS: BP 160/91; PULSE 94; RESP 24; O2SAT 100
[2022-05-04 14:17] LABS: Reflex Troponin-HS? (from REC) Y
[2022-05-04 14:55] LABS: Troponin-I HS 7 pg/mL (3.0-78.0)
[2022-05-04 15:09] VITALS: PULSE 114; RESP 18; O2SAT 92
[2022-05-04 15:32] VITALS: BP 148/90; PULSE 87; RESP 21; O2SAT 100
== END 2022-05-04 16:42 | disposition home or self-care (01) ==
PROVIDERS: Emergency Provider Emergency Medicine; PCP Internal Medicine; Visit Provider Emergency Medicine
DX: R07.9 Chest pain, unspecified (principal); G71.00 Muscular dystrophy, unspecified; K56.7 Ileus, unspecified; R51.9 Headache, unspecified; I10 Essential (primary) hypertension; M54.50 Low back pain, unspecified; G89.29 Other chronic pain; Z79.899 Other long term (current) drug therapy
CPT/HCPCS: 74022; 80048; 84484; 85025; 85610; 93005; 99285; A4216

== ENCOUNTER 2022-05-07 09:22 | Emergency (ER) | payer OTHER, MEDICAID, SELFPAY ==
[2022-05-07 09:23] VITALS: BP 147/78; PULSE 87; RESP 14; TEMP 36.4; O2SAT 100; BMI 26.6
--- NOTE | 2022-05-07 09:55 | CT_ITS ---
HISTORY: Pain. TECHNIQUE: Helically acquired images were obtained of the abdomen and pelvis without oral or IV contrast. A radiation dose optimization technique was used for this scan. 488 images. COMPARISON: XR 05/04/2022. CT 03/08/2022 FINDINGS: LOWER CHEST: Mild bibasilar atelectasis and scarring. Cardiac pacemaker noted. BOWEL: Percutaneous gastrojejunostomy tube remains in place. Bowel including appendix nondilated. No focal pericolonic inflammatory change. PERITONEUM: No significant free fluid. LIVER/SPLEEN: Nonenlarged. GALLBLADDER/BILIARY TREE: Gallbladder present. PANCREAS: Atrophic. KIDNEYS AND URETERS: Bilateral renal calculus measuring up to 3 mm on the right and 4 mm on the left without hydronephrosis. Stable small right renal cyst. ADRENAL GLANDS: No nodules. VESSELS: No abdominal aortic aneurysm. Mild atherosclerosis. PELVIC ORGANS: Unremarkable. ABDOMINAL WALL: Chronic muscular atrophy. Mild subcutaneous edema with punctate air over the left hip may be secondary to injections. BONES: Osteopenia and mild degenerative change. Chronic mild compression fractures with Schmorl''s nodes in the lower thoracic spine. CT/Abdomen/Pelvis without Cont IMPRESSION: Bilateral nonobstructing renal calculi. Electronically Signed: Karlene Nice MD at 11:13 EST ,
--- NOTE | 2022-05-07 09:57 | EDS_ITS ---
HPI HPI - GI History of Present Illness Chief Complaint: Abd Pain Informant: patient and spouse/S.O. Abdominal Pain/Flank Pain Onset: Weeks (several) Context: Gradual Onset Timing: Waxes and wanes Quality: Aching and Sharp Location: Diffuse Current Severity: Severe Maximum Severity: Severe Worsened by: Nothing Relieved by: - (BM when he has them, and only partially) Nausea/Vomiting/Emesis GI Symptom: Positive for Nausea; Negative for Vomiting (too weak due to MD) Diarrhea/Melena/Hematochezia GI Symptom: Positive for - (consitpation); Negative for Diarrhea, Melena or Hematochezia Associated Symptoms Associated Symptoms: Positive for Frequency (difficulty emptying x wks-months); Negative for Dysuria Narrative Narrative: Patient presenting for abdominal discomfort that is everywhere, some nausea. He has muscular dystrophy. He was seen here 3 to 4 days ago for the same symptoms and had an abdominal series that showed radiographical suspicion for an ileus. He has had no vomiting but states due to his muscular dystrophy he usually does not vomit because of being weak. He has had nausea. When he has a bowel movement it does help, however he has chronic constipation, on MiraLAX either every day or every other day as well as senna supplementation, this is mostly due to decreased activity and movement, and as a result of that as well, he has multiple compression fractures in his spine which is giving him lots of pain, which is why he is on morphine which helps contribute to his constipation as well. He is still having lots of back pain despite the narcotics, he is trying to minimize this but states he cannot go off of narcotics because he has so much back pain. He denies any fevers or chills. He has also been having trouble emptying his bladder and urinating, he has an appointment with [facility] for the first time for this, he does not have a catheter. [facility] Medical History Acute respiratory failure Altered mental status Anemia Anxiety Back pain Back pain Cardiology follow-up encounter Cardiomyopathy Carotid artery calcification Chest pain Chest pain Chronic hypoxemic respiratory failure Chronic low back pain Complete heart block Compression fracture of thoracic spine, non-traumatic Depression Diarrhea Dietary restriction Difficulty balancing Dilated cardiomyopathy Frequent headaches GERD (gastroesophageal reflux disease) Heart disease Hereditary progressive muscular dystrophy History of echocardiogram History of edema History of IBS History of urinary calculi Hypertension Hyponatremia Injury of head and neck Irritable bowel syndrome Kidney stones Limb weakness Malfunction of gastrostomy tube MRSA (methicillin resistant 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) colonization Muscular dystrophy Non-smoker Non-ST elevation [place] (NSTEMI) On home oxygen therapy Otitis interna PEG tube malfunction Pneumonia Pneumonia Pseudomonas pneumonia Shoulder pain Sick sinus syndrome SOB (shortness of breath) Thyroid disease Troponin I above reference range Uses wheelchair Ventilator dependent Home Medications cholecalciferol (vitamin D3) 25 mcg (1,000 unit) tablet 2,000 unit feeding tube DAILY SUPPLEMENT 07/01/14 [History Last Taken 10/30/21] aspirin 81 mg chewable tablet 81 mg feeding tube DAILY@0800 HEART HEATLTH 03/09/15 [History Last Taken 10/30/21] sennosides 8.6 mg tablet 1 tab feeding tube BID PRN Constipation 03/09/15 [History Last Taken 10/30/21] bacitracin 500 unit/gram topical packet 1 applic topical PRN PRN Skin Cleansing 07/05/17 [History Last Taken Unknown] aluminum-mag hydroxide-simethicone 400 mg-400 mg-40 mg/5 mL oral susp 20 ml PO PRN PRN gastric distress 07/07/18 [History Last Taken Unknown] naproxen sodium 220 mg capsule 220 mg G-tube BID PRN PRN Pain 07/07/18 [History Last Taken 10/29/21] cyclobenzaprine 10 mg tablet 10 mg feeding tube BID PRN PRN Spasms 07/10/18 [History Last Taken 10/29/21] hydrocodone 10 mg-acetaminophen 325 mg tablet 10 - 325 tab feeding tube PRN PRN Pain 07/10/18 [History Last Taken 10/30/21 09:30] dextromethorphan-guaifenesin 5 mg-100 mg/5 mL oral liquid (Child Robitussin Cough-Chest DM) 10 ml feeding tube Q6H PRN Muscle Spasticity 02/11/20 [History Last Taken Unknown] albuterol sulfate 2.5 mg/3 mL (0.083 %) solution for nebulization 2.5 mg (3 mL) inhalation Q4H PRN PRN Sob &/Or Wheezing #180 mL 09/27/20 [Rx Last Taken Unknown] sodium chloride 0.9 % for nebulization 1 ml inhalation Q8H PRN thick secretions 04/10/21 [History Last Taken Unknown] zinc oxide 10 % topical ointment 1 applic topical BID-QID PRN Skin Cleansing 04/10/21 [History Last Taken Unknown] albuterol sulfate 90 mcg/actuation aerosol inhaler (ProAir HFA) 2 puff inhalation TID PRN sob 08/06/21 [History Last Taken Unknown] ferrous sulfate 15 mg iron (75 mg)/mL oral drops (Henry-In-Domonique) 1 ml PO BID 08/13/21 [History Last Taken 10/30/21] guaifenesin 200 mg/5 mL oral liquid 200 mg feeding tube Q4H PRN cough 08/13/21 [History Last Taken Unknown] buspirone 30 mg tablet 30 mg feeding tube BID ANXIETY #180 tabs 09/10/21 [Rx Last Taken 10/30/21] morphine 20 mg/5 mL (4 mg/mL) oral solution 20 mg PO Q6H PRN Pain 09/21/21 [History Last Taken 10/30/21 08:00] nystatin 100,000 unit/gram topical cream 1 applic topical BID PRN redness 09/21/21 [History Last Taken Unknown] glycerin (adult) 1 supp OH BID PRN Constipation 10/30/21 [History Last Taken 10/30/21] glycerin (adult) (Fleet Glycerin (Adult) rectal suppository) 1 supp OH DAILY PRN Constipation 10/30/21 [History Last Taken Unknown] psyllium husk (aspartame) 3.4 gram/5.8 gram oral powder (Metamucil Sugar-Free (aspartame)) 3 g PO TID PRN Constipation 10/30/21 [History Last Taken Unknown] sertraline 20 mg/mL oral concentrate 50 mg feeding tube QHS 10/30/21 [History Last Taken 10/29/21] lansoprazole 30 mg delayed release,disintegrating tablet See Rx Instructions .Route .COMPLEX #30 TABLETS 12/03/21 [Rx Last Taken Unknown] sodium bicarbonate 1 mEq/mL (8.4 %) intravenous solution See Rx Instructions .Route .COMPLEX #500 mL 12/03/21 [Rx Last Taken Unknown] polyethylene glycol 3350 17 gram oral powder packet (Miralax) 17 g PO BID PRN Constipation #100 ea 09/15/22 [Rx Last Taken Unknown] glycopyrrolate 1 mg tablet 1.5 mg feeding tube BID GI #135 tabs 03/20/22 [Rx Last Taken Unknown] lisinopril 10 mg tablet 10 mg PO DAILY #90 tabs 04/09/22 [Rx Last Taken Unknown] dicyclomine 10 mg capsule 20 mg PO Q6H PRN PRN abdominal discomfort #30 CAPSULES 05/07/22 [Rx Last Taken Unknown] ondansetron 4 mg disintegrating tablet 8 mg PO Q8H PRN PRN Nausea #20 tabs 05/07/22 [Rx Last Taken Unknown] Allergy/AdvReac Type Severity Reaction Status Date / Time No Known Allergies Allergy Verified 05/07/22 09:26 Family History Mother Heart disease Myocardial infarction Arthritis Depression Father Thyroid cancer Myocardial infarction Parkinson disease Arthritis Sister Thyroid cancer Arthritis Surgical History Gastrointestinal tube in situ History of esophagogastroduodenoscopy (EGD) History of hemorrhoidectomy History of release of tendon Presence of cardiac pacemaker Tracheostomy tube present (~2013) Social History Smoking Status: Never smoker second hand exposure: No alcohol intake: never substance use type: does not use caffeine: Yes Type: coffee what type of physical activity do you participate in: none ROS ROS ED Constitutional Constitutional ED: Denies chills or fever(s) Eyes Eyes: Denies change in vision or diplopia ENT ENT ED: Denies rhinorrhea or sore throat Cardiovascular Cardiovascular: Denies chest pain or palpitations Respiratory/Chest Respiratory/Chest: Denies cough or dyspnea Gastrointestinal Gastrointestinal: Reports abdominal pain, constipation and nausea; Denies diarrhea or vomiting Genitourinary Genitourinary ED: Reports as per HPI and urinary frequency; Denies dysuria or hematuria Musculoskeletal Musculoskeletal: Reports back pain; Denies neck pain Integumentary Denies abscess or rash Neurologic Neurologic: Reports weakness; Denies headache(s) Psychiatric Psychiatric: Reports anxiety; Denies suicidal thoughts EXAM Physical Exam Const Vital Signs: 05/07/22 09:23 05/07/22 12:44 Temperature 97.6 F L Temperature Source Temporal Pulse Rate 87 81 Respiratory Rate 14 16 Blood Pressure 147/78 H 158/89 H Blood Pressure Mean 101 112 Pulse Ox 100 100 Oxygen Delivery Method Room Air Room Air Positive well nourished and well developed General Appearance ED: well developed and NAD HEENT Reports moist mucous membranes normocephalic and atraumatic Eyes PERRL and EOMs intact bilaterally Neck full ROM and supple Neck Narrative: Tracheostomy site benign Resp normal respiratory effort and clear to auscultation bilaterally Cardio regular rate, regular rhythm and no murmurs GI non-distended GI Narrative: Diffusely tender. Good, normal, active bowel sounds. Auscultation: normoactive bowel sounds Palpation: soft Extremity normal to inspection General Extremety ED: Negative for edema, pulses abnormal or tenderness General Extremity: Negative for edema or pulses abnormal Neuro oriented x3, CN's II-XII intact bilaterally and no sensory deficits noted Neuro Narrative: Wheelchair-bound Sensorium / Orientation: awake and alert Motor Exam: general weakness Psych Mood & Affect: anxious Skin no rashes or lesions noted and no wounds MDM MDM MDM Narrative Medical decision making narrative: Initially gave the patient Reglan and dicyclomine, he maybe had a little relief of his symptoms, further asking for Zofran and morphine which was given and did help. We did try a soapsuds enema as well, which did not give him major relief although there was a lot of green liquid that resulted, not a lot of solid stool. The CT scan does not show significant amount of retained stool, performed before the enema, nothing else acute. My interpretation of the CT agrees with that of the radiologist. With regards to his urinary symptoms, we did a postvoid residual, he had about 300 or so cc of urine before he tried, then he urinated and afterwards he basically had an empty bladder reassuring, does not need a catheter right now. Furthermore we tested for infection, and it appears to be negative, further reassuring with regards to his urinary symptoms. I agree with close a patient follow-up with his urologist as scheduled. He did have some mild prerenal azotemia on the labs, and liver enzymes were run because they were elevated and he is having abdominal pain unknown of those or length but his liver enzymes appear to be trending down which is good, which I discussed with the . At this time my suspicion is that this is GI in etiology with regards to his abdominal pain. He is scheduled to see Dr. Guaman as an outpatient which she has not done yet, I think keeping that would be reasonable. I will prescribe him dicyclomine in addition to Zofran to use as needed in the near future and is comfortable with that overall plan. Lab Data Attestation: I reviewed the patient's lab results. Labs: Laboratory Results - last 24 hr 05/07/22 05/07/22 05/07/22 10:24 10:24 13:15 WBC 4.6 RBC 5.06 Hgb 15.7 Hct 46.5 MCV 91.9 MCH 31.0 MCHC 33.8 RDW Std Deviation 43.7 RDW Coeff of Lily 12.9 Plt Count 287 MPV 8.0 Immature Gran % (Auto) 0.200 Neut % (Auto) 53.3 Lymph % (Auto) 34.9 Dickenson % (Auto) 10.5 H Eos % (Auto) 0.4 Baso % (Auto) 0.7 Absolute Neuts (auto) 2.4 Absolute Lymphs (auto) 1.60 Nucleated RBC % 0 Sodium 131 L Potassium 5.1 Chloride 100 Carbon Dioxide 27.0 Anion Gap 4 L BUN 23 H Creatinine 0.22 L Estim Creat Clear Calc 352.61 Est GFR (MDRD) Af Amer 548 Est GFR (MDRD) Non-Af 453 BUN/Creatinine Ratio 102.7 H Glucose 99 Calcium 10.0 Total Bilirubin 0.50 AST 52 H ALT 58 Alkaline Phosphatase 167 H Total Protein 8.5 H Albumin 3.6 Globulin 4.9 H Albumin/Globulin Ratio 0.7 L Lipase 60 L Urine Color Yellow Urine Clarity Clear Urine pH 8.0 Ur Specific [place] 1.015 Urine Protein Negative Urine Glucose (UA) Normal Urine Ketones Negative Urine Occult Blood Negative Urine Nitrite Negative Urine Bilirubin Negative Urine Urobilinogen Normal Ur Leukocyte Esterase Negative Urine RBC 0 SEEN Urine WBC 0 SEEN Ur Squamous Epith Cells 0 SEEN Urine Bacteria 0 SEEN Urine Mucus 0 SEEN Radiography Diagnostic Testing: Clinical Impression(s) from Imaging Studies Abdomen/Pelvis CT 05/07/22 09:55 IMPRESSION: Bilateral nonobstructing renal calculi. Electronically Signed: Karlene Nice MD at 11:13 EST , Discharge Plan Triage Chief Complaint: Abd Pain ED Provider: Gary Barrera Dx/Rx/DC Orders Clinical Impression: Diffuse abdominal pain, Muscular dystrophy, Difficulty urinating Instructions: Abdominal Pain Prescriptions: New dicyclomine 10 mg capsule 20 mg PO Q6H PRN PRN (Reason: abdominal discomfort) Qty: 30 0RF ondansetron [ondansetron] 4 mg tablet,disintegrating 8 mg PO Q8H PRN PRN (Reason: Nausea) Qty: 20 0RF No Action bacitracin 500 unit/gram packet 1 applic TOPICAL PRN PRN (Reason: Skin Cleansing) Chld Robitussin Cough-Chest DM 5-100 mg/5 mL liquid 10 ml feeding tube Q6H PRN (Reason: Muscle Spasticity) albuterol sulfate 2.5 mg /3 mL (0.083 %) solution for nebulization 2.5 mg inhalation Q4H PRN PRN (Reason: Sob &/Or Wheezing) Qty: 180 6RF zinc oxide 10 % ointment 1 applic topical BID-QID PRN (Reason: Skin Cleansing) sodium chloride 0.9 % solution for nebulization 1 ml inhalation Q8H PRN (Reason: thick secretions) nystatin 100,000 unit/gram cream 1 applic topical BID PRN (Reason: redness) albuterol sulfate [ProAir HFA] 90 mcg/actuation HFA aerosol inhaler 2 puff inhalation TID PRN (Reason: sob) morphine 20 mg/5 mL (4 mg/mL) solution 20 mg PO Q6H PRN (Reason: Pain) cholecalciferol (vitamin D3) 1,000 UNIT tablet 2,000 unit feeding tube DAILY sennosides 1 TABLET tablet 1 tab feeding tube BID PRN (Reason: Constipation) aspirin 81 MG tablet,chewable 81 mg feeding tube DAILY@0800 alum-mag hydroxide-simeth 30 ML suspension 20 ml PO PRN PRN (Reason: gastric distress) naproxen sodium 220 MG capsule 220 mg G-tube BID PRN PRN (Reason: Pain) cyclobenzaprine 10 MG tablet 10 mg feeding tube BID PRN PRN (Reason: Spasms) hydrocodone-acetaminophen 1 EACH tablet 10 - 325 tab feeding tube PRN PRN (Reason: Pain) Label Comments: take 1 tablet by mouth three times a day if needed guaifenesin 200 mg/5 mL liquid 200 mg feeding tube Q4H PRN (Reason: cough) ferrous sulfate [Henry-In-Domonique] 15 mg iron (75 mg)/mL drops 1 ml PO BID glycerin (adult) Suppository 1 supp OH BID PRN (Reason: Constipation) glycerin (adult) [Fleet Glycerin (Adult)] Suppository 1 supp OH DAILY PRN (Reason: Constipation) Metamucil Sugar-Free (aspart) 3.4 gram/5.8 gram Powder 3 g PO TID PRN (Reason: Constipation) sertraline 20 mg/mL concentrate 50 mg feeding tube QHS buspirone 30 mg tablet 30 mg feeding tube BID Qty: 180 3RF lansoprazole 30 mg tablet,disintegrat, delay rel See Rx Instructions .ROUTE .COMPLEX Qty: 30 11RF Dose Instruction: DISSOLVE 1 TABLET IN WATER AND ADMINISTER THROUGH PEG TUBE ONCE DAILY Rx Instructions: DISSOLVE 1 TABLET IN WATER AND ADMINISTER THROUGH PEG TUBE ONCE DAILY sodium bicarbonate 1 mEq/mL (8.4 %) solution See Rx Instructions .ROUTE .COMPLEX Qty: 500 11RF Dose Instruction: COMBINE ONE LANSOPRAZOLE CAPSULE WITH 10 milliliters SODIUM BICARBONATE AND ADMINISTER THROUGH ENTERAL FEED TUBE Rx Instructions: COMBINE ONE LANSOPRAZOLE CAPSULE WITH 10 milliliters SODIUM BICARBONATE AND ADMINISTER THROUGH ENTERAL FEED TUBE polyethylene glycol 3350 [Miralax] 17 gram powder in packet 17 g PO BID PRN (Reason: Constipation) Qty: 100 2RF glycopyrrolate 1 mg tablet 1.5 mg feeding tube BID Qty: 135 3RF lisinopril 10 mg tablet 10 mg PO DAILY Qty: 90 1RF Primary Care Provider: Tyesha Latif Referrals: Tyesha Latif MD [Primary Care Provider] - Garry Guaman DO [Med Staff - Active Staff] - Keep Zarina appointment Disposition Disposition: Home, Self Care
[2022-05-07] MEDS: 0.9% Normal Saline 1,000 ML 125 ML IV (10:23)
[2022-05-07] MEDS: Metoclopramide 10 MG/2 ML Vial 5 MG IV (10:24)
[2022-05-07] MEDS: Dicyclomine 20 MG/2 ML Vial IM (10:26)
[2022-05-07 10:36] LABS: Absolute Neutrophil Count 2.4 X10^3/uL (2.0-7.7); Basophil# 0.03 X10^3/uL; Basophil% 0.7 % (0-1); Eosinophil# 0.02 X10^3/uL; Eosinophils% 0.4 % (0-5); Hematocrit 46.5 % (40-54); Hemoglobin 15.7 g/dL (13.0-16.5); Lymphocyte % 34.9 % (19-41); Mean Corp Hgb Conc 33.8 g/dL (32-36); Mean Corpuscular Volume 91.9 fL (80-94); Monocyte# 0.48 X10^3/uL; Monocyte% 10.5 % (0-10); NRBC Flagged by Analyzer 0 % (0-5); Neutrophil # 2.44 X10^3/uL (2.7-7.7); Neutrophil % 53.3 % (47-70); Platelet Count 287 K/mm3 (150-450); RBC Distribution Width CV 12.9 % (11.6-14.6); RBC Distribution Width SD 43.7 fl (35.1-43.9); Red Blood Count 5.06 M/mm3 (4.6-6.2); White Blood Count 4.6 K/mm3 (4.4-11.0)
[2022-05-07 10:54] LABS: ALB/GLOB Ratio 0.7 RATIO (0.9-2.4); AST(SGOT) 52 U/L (15-37); Alanine Aminotransfer ALT/SGPT 58 U/L (16-61); Albumin, Serum 3.6 g/dL (3.2-5.0); Alkaline Phosphatase 167 U/L (45-117); Anion Gap 4 (5-15); BUN 23 mg/dL (7-18); BUN/Creat Ratio 102.7 RATIO (10-20); Chloride 100 mmol/L (98-107); Creatinine, Serum 0.22 mg/dL (0.70-1.30); EST Glomerular Filtration Rate 453 mL/min (>60); Est Glom Filt Rate - Afr Amer 548 mL/min (>60); Globulin 4.9 g/dL (2.2-4.2); Glucose 99 mg/dL (74-106); Lipase 60 U/L (73-393); Potassium 5.1 mmol/L (3.5-5.1); Protein, Total 8.5 g/dL (6.4-8.2); Sodium Level 131 mmol/L (136-145)
[2022-05-07] MEDS: Morphine 4 MG/ML Syringe IV (12:40)
[2022-05-07] MEDS: Ondansetron 4 MG/2 ML Vial IV (12:40)
[2022-05-07 12:44] VITALS: BP 158/89; PULSE 81; RESP 16; O2SAT 100
[2022-05-07 13:33] LABS: Bacteria 0 SEEN /hpf (None Seen); Mucous, Urine 0 SEEN /hpf (<or=2+); Red Blood Cells-Urine 0 SEEN /hpf (0-5); Squamous Epithelial Cells - UA 0 SEEN /hpf (0-5); White Blood Cells 0 SEEN /hpf (0-5)
[2022-05-07 13:41] LABS: Color, Urine Yellow (Yellow); Glucose, Dipstick Normal (Normal); Ketone-Dipstick Negative (Negative); Leukocyte Esterase-Dipstick Negative /ul (Negative); Nitrite-Dipstick Negative (Negative); Occult Blood-Urine Negative /ul (Negative); Protein-Dipstick Negative (Negative); Specific Gravity, Urine 1.015 (1.002-1.030); Urine Bilirubin Dipstick Negative (Negative); Urine Clarity Clear (Clear); Urine Urobilinogen Normal (Normal)
== END 2022-05-07 14:58 | disposition home or self-care (01) ==
PROVIDERS: Emergency Provider Emergency Medicine; PCP Internal Medicine; Visit Provider Emergency Medicine
DX: G71.00 Muscular dystrophy, unspecified (principal); R10.84 Generalized abdominal pain; M54.9 Dorsalgia, unspecified; R11.0 Nausea; I10 Essential (primary) hypertension; R35.0 Frequency of micturition
CPT/HCPCS: 74176; 80053; 81001; 83690; 85025; 96361; 96372; 96374; 96375; 99284; J7030; A4216; J2405

== ENCOUNTER 2022-05-09 13:59 | Outpatient (RCR) | payer OTHER, MEDICAID, SELFPAY | END 2022-06-04 23:59 | LOC: NS 13:59 | PROVIDERS: PCP Internal Medicine; Visit Provider Internal Medicine | DX: R69 Illness, unspecified (principal) ==

== ENCOUNTER 2022-05-11 15:37 | Emergency (ER) | payer OTHER, MEDICAID, SELFPAY ==
[2022-05-11 15:38] VITALS: BP 172/97; PULSE 87; RESP 18; TEMP 35.5; O2SAT 99; BMI 26.3
--- NOTE | 2022-05-11 15:50 | EKG12_ITS ---
Test Reason : SOB Blood Pressure : / mmHG Vent. Rate : 084 BPM Atrial Rate : 084 BPM P-R Int : 178 ms QRS Dur : 170 ms QT Int : 428 ms P-R-T Axes : 041 243 047 degrees QTc Int : 505 ms Normal sinus rhythm Non-specific intra-ventricular conduction block Right ventricular hypertrophy Inferior infarct , age undetermined Anterolateral infarct , age undetermined Abnormal ECG When compared with ECG of 04-MAY-2022 11:57, Sinus rhythm has replaced Electronic ventricular pacemaker Confirmed by CHARITY JOHNSON, RAMÓN ([id number]), editorial director LUCIANA GARCIA ([id number]) on 05/14/2022 8:45:52 AM Referred By: Confirmed By:RAMÓN NASH MD
--- NOTE | 2022-05-11 15:53 | EDS_ITS ---
HPI History of Present Illness Chief Complaint: Shortness of Breath Narrative Narrative: 61-year-old male past medical history of tracheostomy, muscular dystrophy, chronic pain, chronic hypoxic respiratory failure presents with dyspnea that began 20 minutes ago. He is well-known to the emergency department and recently had a full work-up for chest pain. He also has a PEG tube. He states that 20 minutes ago he felt like he was suffocating. He does have regular suction at home. He presents because of the dyspnea and the feeling as if he could not breathe. He denies any recent fever or chills, no other symptoms. [facility] Medical History Acute respiratory failure Altered mental status Anemia Anxiety Back pain Back pain Cardiology follow-up encounter Cardiomyopathy Carotid artery calcification Chest pain Chest pain Chronic hypoxemic respiratory failure Chronic low back pain Complete heart block Compression fracture of thoracic spine, non-traumatic Depression Diarrhea Dietary restriction Difficulty balancing Dilated cardiomyopathy Frequent headaches GERD (gastroesophageal reflux disease) Heart disease Hereditary progressive muscular dystrophy History of echocardiogram History of edema History of IBS History of urinary calculi Hypertension Hyponatremia Injury of head and neck Irritable bowel syndrome Kidney stones Limb weakness Malfunction of gastrostomy tube MRSA (methicillin resistant 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) colonization Muscular dystrophy Non-smoker Non-ST elevation HI (NSTEMI) On home oxygen therapy Otitis interna PEG tube malfunction Pneumonia Pneumonia Pseudomonas pneumonia Shoulder pain Sick sinus syndrome SOB (shortness of breath) Thyroid disease Troponin I above reference range Uses wheelchair Ventilator dependent Home Medications cholecalciferol (vitamin D3) 25 mcg (1,000 unit) tablet 2,000 unit feeding tube DAILY SUPPLEMENT 07/01/14 [History Last Taken 10/30/21] aspirin 81 mg chewable tablet 81 mg feeding tube DAILY@0800 HEART HEATLTH 03/09/15 [History Last Taken 10/30/21] sennosides 8.6 mg tablet 1 tab feeding tube BID PRN Constipation 03/09/15 [History Last Taken 10/30/21] bacitracin 500 unit/gram topical packet 1 applic topical PRN PRN Skin Cleansing 07/05/17 [History Last Taken Unknown] aluminum-mag hydroxide-simethicone 400 mg-400 mg-40 mg/5 mL oral susp 20 ml PO PRN PRN gastric distress 07/07/18 [History Last Taken Unknown] naproxen sodium 220 mg capsule 220 mg G-tube BID PRN PRN Pain 07/07/18 [History Last Taken 10/29/21] cyclobenzaprine 10 mg tablet 10 mg feeding tube BID PRN PRN Spasms 07/10/18 [History Last Taken 10/29/21] hydrocodone 10 mg-acetaminophen 325 mg tablet 10 - 325 tab feeding tube PRN PRN Pain 07/10/18 [History Last Taken 10/30/21 09:30] dextromethorphan-guaifenesin 5 mg-100 mg/5 mL oral liquid (Child Robitussin Cough-Chest DM) 10 ml feeding tube Q6H PRN Muscle Spasticity 02/11/20 [History Last Taken Unknown] albuterol sulfate 2.5 mg/3 mL (0.083 %) solution for nebulization 2.5 mg (3 mL) inhalation Q4H PRN PRN Sob &/Or Wheezing #180 mL 09/27/20 [Rx Last Taken Unknown] sodium chloride 0.9 % for nebulization 1 ml inhalation Q8H PRN thick secretions 04/10/21 [History Last Taken Unknown] zinc oxide 10 % topical ointment 1 applic topical BID-QID PRN Skin Cleansing 04/10/21 [History Last Taken Unknown] albuterol sulfate 90 mcg/actuation aerosol inhaler (ProAir HFA) 2 puff inhalation TID PRN sob 08/06/21 [History Last Taken Unknown] ferrous sulfate 15 mg iron (75 mg)/mL oral drops (Henry-In-Domonique) 1 ml PO BID 08/13/21 [History Last Taken 10/30/21] guaifenesin 200 mg/5 mL oral liquid 200 mg feeding tube Q4H PRN cough 08/13/21 [History Last Taken Unknown] buspirone 30 mg tablet 30 mg feeding tube BID ANXIETY #180 tabs 09/10/21 [Rx Last Taken 10/30/21] morphine 20 mg/5 mL (4 mg/mL) oral solution 20 mg PO Q6H PRN Pain 09/21/21 [History Last Taken 10/30/21 08:00] nystatin 100,000 unit/gram topical cream 1 applic topical BID PRN redness 09/21/21 [History Last Taken Unknown] glycerin (adult) 1 supp NC BID PRN Constipation 10/30/21 [History Last Taken 10/30/21] glycerin (adult) (Fleet Glycerin (Adult) rectal suppository) 1 supp NC DAILY PRN Constipation 10/30/21 [History Last Taken Unknown] psyllium husk (aspartame) 3.4 gram/5.8 gram oral powder (Metamucil Sugar-Free (aspartame)) 3 g PO TID PRN Constipation 10/30/21 [History Last Taken Unknown] sertraline 20 mg/mL oral concentrate 50 mg feeding tube QHS 10/30/21 [History Last Taken 10/29/21] lansoprazole 30 mg delayed release,disintegrating tablet See Rx Instructions .Route .COMPLEX #30 TABLETS 12/03/21 [Rx Last Taken Unknown] sodium bicarbonate 1 mEq/mL (8.4 %) intravenous solution See Rx Instructions .Route .COMPLEX #500 mL 12/03/21 [Rx Last Taken Unknown] polyethylene glycol 3350 17 gram oral powder packet (Miralax) 17 g PO BID PRN Constipation #100 ea 01/17/22 [Rx Last Taken Unknown] lisinopril 10 mg tablet 10 mg PO DAILY #90 tabs 04/09/22 [Rx Last Taken Unknown] dicyclomine 10 mg capsule 20 mg PO Q6H PRN PRN abdominal discomfort #30 CAPSULES 05/07/22 [Rx Last Taken Unknown] ondansetron 4 mg disintegrating tablet 8 mg PO Q8H PRN PRN Nausea #20 tabs 05/07/22 [Rx Last Taken Unknown] glycopyrrolate 1 mg tablet 1.5 mg feeding tube BID GI #270 tabs 05/08/22 [Rx Last Taken Unknown] amitriptyline 10 mg tablet 10 mg PO QHS #30 tabs 05/10/22 [Rx Last Taken Unknown] Allergy/AdvReac Type Severity Reaction Status Date / Time No Known Allergies Allergy Verified 05/11/22 15:43 Family History Mother Heart disease Myocardial infarction Arthritis Depression Father Thyroid cancer Myocardial infarction Parkinson disease Arthritis Sister Thyroid cancer Arthritis Surgical History Gastrointestinal tube in situ History of esophagogastroduodenoscopy (EGD) History of hemorrhoidectomy History of release of tendon Presence of cardiac pacemaker Tracheostomy tube present (~2013) Social History Smoking Status: Never smoker second hand exposure: No alcohol intake: never substance use type: does not use caffeine: Yes Type: coffee what type of physical activity do you participate in: none ROS ROS ED ROS Narrative Constitutional: No fever, no chills. HEENT: No sore throat. No neck pain. No loss of vision. No rhinorrhea. Cardiovascular: No chest pain. No palpitations. No pedal edema. Respiratory: No cough, positive shortness of breath, felt as if was suffocating. Abdominal: No abdominal pain. No nausea. No vomiting. Genitourinary: No dysuria. No hematuria. Musculoskeletal: No myalgias. No arthralgias. Neurologic: No headaches. No dizziness. No lightheadedness. Skin: No rash. No change in color. Psychiatric: No depression. No anxiety. EXAM Physical Exam Narrative Exam Narrative: Afebrile. Vital signs noted. HEENT: Normocephalic. Atraumatic. PERRL, EOMI. Neck soft and supple. No point tenderness or step off. Tracheostomy with speaking valve in place. Cardiovascular: Regular rate and rhythm. No murmurs, rubs, or gallops appreciated. Respiratory: No tachypnea. Lungs clear to auscultation bilaterally. No respiratory distress. No accessory muscle use. Gastrointestinal: Abdomen soft, nontender, with normoactive bowel sounds. No rebound or guarding. Neurological: Awake. Alert. Nonfocal, nonlateralizing. Skin: No rash. Normal color. No pallor. Musculoskeletal: No pedal edema. Full range of motion extremities. Const Vital Signs: 05/11/22 15:38 05/11/22 15:44 Temperature 95.9 F L Temperature Source Temporal Pulse Rate 87 Respiratory Rate 18 Respiratory Effort Short of Breath Respiratory Pattern Tachypnea Blood Pressure 172/97 H Blood Pressure Mean 122 Pulse Ox 99 Oxygen Delivery Method Room Air MDM MDM MDM Narrative Medical decision making narrative: I reviewed the patient's prior laboratory work and recent visits at this facility. This is his third visit in the last week. I will obtain an EKG for shortness of breath but he does have history of pacemaker placement. Additionally I will obtain a 1 view chest x-ray to ensure that pneumonia has not developed versus pneumothorax. I do feel he may have had mucous plugging. His current pulse ox is normal/99% on room air without evidence of hypoxia. I interpreted his EKG and see a paced rhythm at [address] changes, no significant change from EKG on May 04. I interpreted his chest x-ray in 1 view which shows no acute findings of the chest. At this point in time, he is resting comfortably. 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 She is comfortable with him being discharged. He states he gets pain in his abdomen that radiates up towards. He has been worked up for this in the past and they are treating him for constipation. Hence, I do not want to give him Bentyl which would slow down his bowel transit. He will continue MiraLAX daily and perhaps increase it to twice a day for the next few days as he has history of constipation. There has been no vomiting in the ED. Additionally, I think what he experienced was mucous plugging. I offered to have respiratory suction his trach, but his declined. Return instructions to the emergency department were reviewed. Disposition is discharged home in stable condition. Radiography Diagnostic Testing: Clinical Impression(s) from Imaging Studies Chest X-Ray 05/11/22 16:20 IMPRESSION: No acute findings in the chest. Electronically Signed: Getachew Martinez MD at 17:03 EST , Discharge Plan Triage Chief Complaint: Shortness of Breath ED Provider: Marin Del Rosario Dx/Rx/DC Orders Clinical Impression: Diffuse abdominal pain, SOB (shortness of breath), Mucus plugging of bronchi Prescriptions: No Action bacitracin 500 unit/gram packet 1 applic TOPICAL PRN PRN (Reason: Skin Cleansing) Chld Robitussin Cough-Chest DM 5-100 mg/5 mL liquid 10 ml feeding tube Q6H PRN (Reason: Muscle Spasticity) albuterol sulfate 2.5 mg /3 mL (0.083 %) solution for nebulization 2.5 mg inhalation Q4H PRN PRN (Reason: Sob &/Or Wheezing) Qty: 180 6RF zinc oxide 10 % ointment 1 applic topical BID-QID PRN (Reason: Skin Cleansing) sodium chloride 0.9 % solution for nebulization 1 ml inhalation Q8H PRN (Reason: thick secretions) nystatin 100,000 unit/gram cream 1 applic topical BID PRN (Reason: redness) albuterol sulfate [ProAir HFA] 90 mcg/actuation HFA aerosol inhaler 2 puff inhalation TID PRN (Reason: sob) morphine 20 mg/5 mL (4 mg/mL) solution 20 mg PO Q6H PRN (Reason: Pain) cholecalciferol (vitamin D3) 1,000 UNIT tablet 2,000 unit feeding tube DAILY sennosides 1 TABLET tablet 1 tab feeding tube BID PRN (Reason: Constipation) aspirin 81 MG tablet,chewable 81 mg feeding tube DAILY@0800 alum-mag hydroxide-simeth 30 ML suspension 20 ml PO PRN PRN (Reason: gastric distress) naproxen sodium 220 MG capsule 220 mg G-tube BID PRN PRN (Reason: Pain) cyclobenzaprine 10 MG tablet 10 mg feeding tube BID PRN PRN (Reason: Spasms) hydrocodone-acetaminophen 1 EACH tablet 10 - 325 tab feeding tube PRN PRN (Reason: Pain) Label Comments: take 1 tablet by mouth three times a day if needed guaifenesin 200 mg/5 mL liquid 200 mg feeding tube Q4H PRN (Reason: cough) ferrous sulfate [Henry-In-Domonique] 15 mg iron (75 mg)/mL drops 1 ml PO BID glycerin (adult) Suppository 1 supp NC BID PRN (Reason: Constipation) glycerin (adult) [Fleet Glycerin (Adult)] Suppository 1 supp NC DAILY PRN (Reason: Constipation) Metamucil Sugar-Free (aspart) 3.4 gram/5.8 gram Powder 3 g PO TID PRN (Reason: Constipation) sertraline 20 mg/mL concentrate 50 mg feeding tube QHS dicyclomine 10 mg capsule 20 mg PO Q6H PRN PRN (Reason: abdominal discomfort) Qty: 30 0RF ondansetron [ondansetron] 4 mg tablet,disintegrating 8 mg PO Q8H PRN PRN (Reason: Nausea) Qty: 20 0RF buspirone 30 mg tablet 30 mg feeding tube BID Qty: 180 3RF lansoprazole 30 mg tablet,disintegrat, delay rel See Rx Instructions .ROUTE .COMPLEX Qty: 30 11RF Dose Instruction: DISSOLVE 1 TABLET IN WATER AND ADMINISTER THROUGH PEG TUBE ONCE DAILY Rx Instructions: DISSOLVE 1 TABLET IN WATER AND ADMINISTER THROUGH PEG TUBE ONCE DAILY sodium bicarbonate 1 mEq/mL (8.4 %) solution See Rx Instructions .ROUTE .COMPLEX Qty: 500 11RF Dose Instruction: COMBINE ONE LANSOPRAZOLE CAPSULE WITH 10 milliliters SODIUM BICARBONATE AND ADMINISTER THROUGH ENTERAL FEED TUBE Rx Instructions: COMBINE ONE LANSOPRAZOLE CAPSULE WITH 10 milliliters SODIUM BICARBONATE AND ADMINISTER THROUGH ENTERAL FEED TUBE polyethylene glycol 3350 [Miralax] 17 gram powder in packet 17 g PO BID PRN (Reason: Constipation) Qty: 100 2RF lisinopril 10 mg tablet 10 mg PO DAILY Qty: 90 1RF glycopyrrolate 1 mg tablet 1.5 mg feeding tube BID Qty: 270 3RF amitriptyline 10 mg tablet 10 mg PO QHS Qty: 30 5RF Primary Care Provider: Tyesha Latif Referrals: Tyesha Latif MD [Primary Care Provider] - 2 Days Disposition Disposition: Home, Self Care
--- NOTE | 2022-05-11 16:20 | RAD_ITS ---
EXAM: XR CHEST, 1 VIEW CLINICAL INDICATION: Shortness of Breath TECHNIQUE: Frontal view of the chest. This report was created using [employer] report generation technology. COMPARISON: 05/04/2022 FINDINGS: LUNGS AND PLEURAL SPACES: Unremarkable. No consolidation or edema. No pneumothorax. No effusion. HEART: Unremarkable. Cardiac silhouette not enlarged. MEDIASTINUM: Central airways and mediastinal contour are unremarkable. BONES/JOINTS: Unremarkable. SOFT TISSUES: Unremarkable. TUBES, LINES AND DEVICES: Tracheostomy tube and left-sided pacemaker in stable position. RAD/Chest 1 View (Portable) IMPRESSION: No acute findings in the chest. Electronically Signed: Getachew Martinez MD at 17:03 EST ,
[2022-05-11 18:26] VITALS: BP 106/80; PULSE 80; RESP 24
== END 2022-05-11 19:20 | disposition home or self-care (01) ==
PROVIDERS: Emergency Provider Emergency Medicine; PCP Internal Medicine; Visit Provider Emergency Medicine
DX: R10.84 Generalized abdominal pain (principal); Z93.1 Gastrostomy status; R06.02 Shortness of breath; T17.890A Other foreign object in other parts of respiratory tract causing asphyxiation, initial encounter; I25.2 Old myocardial infarction; Z99.81 Dependence on supplemental oxygen; Z95.0 Presence of cardiac pacemaker; X58.XXXA Exposure to other specified factors, initial encounter
CPT/HCPCS: 71045; 93005; 99284

== ENCOUNTER → 2022-05-13 | Outpatient (CLI) | payer OTHER, MEDICAID, SELFPAY ==
--- NOTE | 2022-05-13 14:00 | US_ITS ---
INDICATION: Unable to urinate --history of BPH EXAMINATION: Ultrasound US Kidney(s) complete (eg, kidneys and bladder) TECHNIQUE: Pina scale and color doppler images were obtained of the kidneys. COMPARISON: CT abdomen and pelvis 05/07/2022 FINDINGS: RIGHT KIDNEY: 9.7 x 6.3 x 5.5 cm. There is no hydronephrosis. No shadowing calculus, focal lesion or perinephric collection is demonstrated. LEFT KIDNEY: 9.3 x 5.7 x 5.5 cm. There is no hydronephrosis. No shadowing calculus, focal lesion or perinephric collection is demonstrated. URINARY BLADDER: No acute abnormality. Post void residual volume 331 cc. US/Kidney and Bladder IMPRESSION: No hydronephrosis. Large post void residual urinary bladder volume. Electronically Signed: Leo Thompson MD at 17:18 EST ,
[2022-05-13 17:33] LABS: ALB/GLOB Ratio 0.8 RATIO (0.9-2.4); AST(SGOT) 32 U/L (15-37); Alanine Aminotransfer ALT/SGPT 64 U/L (16-61); Alkaline Phosphatase 151 U/L (45-117); Anion Gap 11 (5-15); BUN 21 mg/dL (7-18); BUN/Creat Ratio 98.1 RATIO (10-20); Chloride 98 mmol/L (98-107); Creatinine, Serum 0.21 mg/dL (0.70-1.30); EST Glomerular Filtration Rate 477 mL/min (>60); Est Glom Filt Rate - Afr Amer 577 mL/min (>60); Globulin 4.8 g/dL (2.2-4.2); Glucose 81 mg/dL (74-106); PSA,Total - Annual Screen 0.12 ng/mL (0.00-4.00); Potassium 4.7 mmol/L (3.5-5.1); Protein, Total 8.8 g/dL (6.4-8.2); Sodium Level 135 mmol/L (136-145)
== END | disposition home or self-care (01) ==
LOC: US 13:22
PROVIDERS: PCP Internal Medicine; Referring Provider Internal Medicine; Visit Provider Internal Medicine
DX: N40.1 Benign prostatic hyperplasia with lower urinary tract symptoms (principal); R39.198 Other difficulties with micturition; R10.84 Generalized abdominal pain; N13.8 Other obstructive and reflux uropathy
CPT/HCPCS: 36415; 76770; 80053; 84153; G0103

== ENCOUNTER → 2022-05-17 | Outpatient (CLI) | payer OTHER, MEDICAID, SELFPAY | END | disposition home or self-care (01) | LOC: LAB 10:57 | PROVIDERS: PCP Internal Medicine; Visit Provider Internal Medicine Gastroenterology | DX: R74.8 Abnormal levels of other serum enzymes (principal) ==

== ENCOUNTER 2022-05-18 00:11 | Emergency (ER) | payer OTHER, MEDICAID, SELFPAY ==
[2022-05-18 00:12] VITALS: BP 190/103; PULSE 84; RESP 27; TEMP 36.2; O2SAT 91; BMI 26.5
--- NOTE | 2022-05-18 00:36 | EKG12_ITS ---
Test Reason : CP Blood Pressure : / mmHG Vent. Rate : 083 BPM Atrial Rate : 083 BPM P-R Int : 182 ms QRS Dur : 170 ms QT Int : 422 ms P-R-T Axes : 042 242 049 degrees QTc Int : 495 ms Normal sinus rhythm Non-specific intra-ventricular conduction block Right ventricular hypertrophy Inferior infarct , age undetermined Anterolateral infarct , age undetermined Abnormal ECG Confirmed by CHARITY JOHNSON, RAMÓN ([id number]), graphics editor LUCIANA GARCIA ([id number]) on 05/20/2022 11:14:29 AM Referred By: SHARON Confirmed By:RAMÓN NASH MD
[2022-05-18] MEDS: Aspirin 325 MG Tablet PO (01:22)
[2022-05-18 01:23] LABS: Absolute Lymphocyte Count 3.05 X10^3/uL (0.83-4.51); Absolute Neutrophil Count 6.5 X10^3/uL (2.0-7.7); Basophil# 0.06 X10^3/uL; Basophil% 0.6 % (0-1); Eosinophil# 0.15 X10^3/uL; Eosinophils% 1.4 % (0-5); Hematocrit 50.2 % (40-54); Hemoglobin 16.7 g/dL (13.0-16.5); Lymphocyte # 3.05 X10^3/ul (0.83-4.51); Mean Corp Hgb Conc 33.3 g/dL (32-36); Mean Corpuscular Volume 93.3 fL (80-94); Mean Platelet Vol. 8.1 fl (6.2-12.0); Monocyte# 0.72 X10^3/uL; Monocyte% 6.9 % (0-10); NRBC Flagged by Analyzer 0 % (0-5); Neutrophil # 6.48 X10^3/uL (2.7-7.7); Neutrophil % 61.7 % (47-70); Platelet Count 255 K/mm3 (150-450); RBC Distribution Width CV 13.2 % (11.6-14.6); RBC Distribution Width SD 45.2 fl (35.1-43.9); Red Blood Count 5.38 M/mm3 (4.6-6.2); White Blood Count 10.5 K/mm3 (4.4-11.0)
[2022-05-18 01:29] VITALS: BP 152/89; PULSE 78; RESP 30; O2SAT 99
--- NOTE | 2022-05-18 01:36 | RAD_ITS ---
INDICATION: chest pain EXAMINATION/TECHNIQUE: X-RAY - XR Chest 1 View COMPARISON: 05/11/2022. FINDINGS: LINES/DEVICES: 2-lead left chest cardiac pacer. Tracheostomy projects over the trachea.. LUNGS: No consolidation, edema or effusion. No pneumothorax. MEDIASTINUM AND CARDIOVASCULAR STRUCTURES: Cardiac silhouette not enlarged. BONES AND SOFT TISSUES: Unremarkable. RAD/Chest 1 View (Portable) IMPRESSION: No radiographic evidence of acute cardiopulmonary disease. Electronically Signed: Nicola Valentine MD at 2:24 EST ,
[2022-05-18 02:00] VITALS: BP 139/85; PULSE 75; RESP 30; O2SAT 100
[2022-05-18 02:01] LABS: Anion Gap 5 (5-15); BUN 18 mg/dL (7-18); BUN/Creat Ratio 83.7 RATIO (10-20); Calcium,Total 9.7 mg/dL (8.5-10.1); Chloride 101 mmol/L (98-107); Creatinine, Serum 0.22 mg/dL (0.70-1.30); EST Glomerular Filtration Rate 474 mL/min (>60); Est Glom Filt Rate - Afr Amer 574 mL/min (>60); Glucose 88 mg/dL (74-106); Magnesium 2.1 mg/dL (1.6-2.6); Potassium 5.2 mmol/L (3.5-5.1); Sodium Level 132 mmol/L (136-145); Troponin-I HS 13 pg/mL (3.0-78.0)
[2022-05-18 03:00] VITALS: BP 155/102; PULSE 76; RESP 30; O2SAT 100
[2022-05-18] MEDS: Ondansetron 4 MG/2 ML Vial IV (03:32)
[2022-05-18] MEDS: Morphine 4 MG/ML Syringe IV (03:32)
[2022-05-18 04:07] LABS: Troponin-I HS 16 pg/mL (3.0-78.0)
--- NOTE | 2022-05-18 04:33 | EX.ED.DYSGE1 ---
HPI History of Present Illness Chief Complaint: Chest Pain Narrative Narrative: Patient is a 61-year-old male with past medical history of cerebral palsy who has a chronic trach as well as history of complete heart block status post pacemaker and hypertension. Patient states that he has pain every day but that this evening he felt like the pain was different from his baseline and he states that he hurts all over but that the pain seems a little more intense along the left chest wall region. He denies any trauma or sick symptoms and states that the his normal medication did not reduce it and therefore EMS was contacted to bring him in for evaluation. [facility] Medical History Acute respiratory failure Altered mental status Anemia Anxiety Back pain Back pain Cardiology follow-up encounter Cardiomyopathy Carotid artery calcification Chest pain Chest pain Chronic hypoxemic respiratory failure Chronic low back pain Complete heart block Compression fracture of thoracic spine, non-traumatic Depression Diarrhea Dietary restriction Difficulty balancing Dilated cardiomyopathy Frequent headaches GERD (gastroesophageal reflux disease) Heart disease Hereditary progressive muscular dystrophy History of echocardiogram History of edema History of IBS History of urinary calculi Hypertension Hyponatremia Injury of head and neck Irritable bowel syndrome Kidney stones Limb weakness Malfunction of gastrostomy tube MRSA (methicillin resistant 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) colonization Muscular dystrophy Non-smoker Non-ST elevation [place] (NSTEMI) On home oxygen therapy Otitis interna PEG tube malfunction Pneumonia Pneumonia Pseudomonas pneumonia Shoulder pain Sick sinus syndrome SOB (shortness of breath) Thyroid disease Troponin I above reference range Uses wheelchair Ventilator dependent Home Medications cholecalciferol (vitamin D3) 25 mcg (1,000 unit) tablet 2,000 unit feeding tube DAILY SUPPLEMENT 07/01/14 [History Last Taken 10/30/21] aspirin 81 mg chewable tablet 81 mg feeding tube DAILY@0800 HEART HEATLTH 03/09/15 [History Last Taken 10/30/21] sennosides 8.6 mg tablet 1 tab feeding tube BID PRN Constipation 03/09/15 [History Last Taken 10/30/21] bacitracin 500 unit/gram topical packet 1 applic topical PRN PRN Skin Cleansing 07/05/17 [History Last Taken Unknown] aluminum-mag hydroxide-simethicone 400 mg-400 mg-40 mg/5 mL oral susp 20 ml PO PRN PRN gastric distress 07/07/18 [History Last Taken Unknown] naproxen sodium 220 mg capsule 220 mg G-tube BID PRN PRN Pain 07/07/18 [History Last Taken 10/29/21] cyclobenzaprine 10 mg tablet 10 mg feeding tube BID PRN PRN Spasms 07/10/18 [History Last Taken 10/29/21] hydrocodone 10 mg-acetaminophen 325 mg tablet 10 - 325 tab feeding tube PRN PRN Pain 07/10/18 [History Last Taken 10/30/21 09:30] dextromethorphan-guaifenesin 5 mg-100 mg/5 mL oral liquid (Child Robitussin Cough-Chest DM) 10 ml feeding tube Q6H PRN Muscle Spasticity 02/11/20 [History Last Taken Unknown] albuterol sulfate 2.5 mg/3 mL (0.083 %) solution for nebulization 2.5 mg (3 mL) inhalation Q4H PRN PRN Sob &/Or Wheezing #180 mL 09/27/20 [Rx Last Taken Unknown] sodium chloride 0.9 % for nebulization 1 ml inhalation Q8H PRN thick secretions 04/10/21 [History Last Taken Unknown] zinc oxide 10 % topical ointment 1 applic topical BID-QID PRN Skin Cleansing 04/10/21 [History Last Taken Unknown] albuterol sulfate 90 mcg/actuation aerosol inhaler (ProAir HFA) 2 puff inhalation TID PRN sob 08/06/21 [History Last Taken Unknown] ferrous sulfate 15 mg iron (75 mg)/mL oral drops (Henry-In-Domonique) 1 ml PO BID 08/13/21 [History Last Taken 10/30/21] guaifenesin 200 mg/5 mL oral liquid 200 mg feeding tube Q4H PRN cough 08/13/21 [History Last Taken Unknown] buspirone 30 mg tablet 30 mg feeding tube BID ANXIETY #180 tabs 09/10/21 [Rx Last Taken 10/30/21] morphine 20 mg/5 mL (4 mg/mL) oral solution 20 mg PO Q6H PRN Pain 09/21/21 [History Last Taken 10/30/21 08:00] nystatin 100,000 unit/gram topical cream 1 applic topical BID PRN redness 09/21/21 [History Last Taken Unknown] glycerin (adult) 1 supp RI BID PRN Constipation 10/30/21 [History Last Taken 10/30/21] glycerin (adult) (Fleet Glycerin (Adult) rectal suppository) 1 supp RI DAILY PRN Constipation 10/30/21 [History Last Taken Unknown] psyllium husk (aspartame) 3.4 gram/5.8 gram oral powder (Metamucil Sugar-Free (aspartame)) 3 g PO TID PRN Constipation 10/30/21 [History Last Taken Unknown] sertraline 20 mg/mL oral concentrate 50 mg feeding tube QHS 10/30/21 [History Last Taken 10/29/21] sodium bicarbonate 1 mEq/mL (8.4 %) intravenous solution See Rx Instructions .Route .COMPLEX #500 mL 12/03/21 [Rx Last Taken Unknown] polyethylene glycol 3350 17 gram oral powder packet (Miralax) 17 g PO BID PRN Constipation #100 ea 01/17/22 [Rx Last Taken Unknown] lisinopril 10 mg tablet 10 mg PO DAILY #90 tabs 04/09/22 [Rx Last Taken Unknown] dicyclomine 10 mg capsule 20 mg PO Q6H PRN PRN abdominal discomfort #30 CAPSULES 05/07/22 [Rx Last Taken Unknown] ondansetron 4 mg disintegrating tablet 8 mg PO Q8H PRN PRN Nausea #20 tabs 05/07/22 [Rx Last Taken Unknown] glycopyrrolate 1 mg tablet 1.5 mg feeding tube BID GI #270 tabs 05/08/22 [Rx Last Taken Unknown] amitriptyline 10 mg tablet 10 mg PO QHS #30 tabs 05/10/22 [Rx Last Taken Unknown] tamsulosin 0.4 mg capsule 0.4 mg PO DAILY #30 caps 05/13/22 [Rx Last Taken Unknown] lansoprazole 30 mg delayed release,disintegrating tablet See Rx Instructions .Route .COMPLEX #60 TABLETS 05/17/22 [Rx Last Taken Unknown] sucralfate 100 mg/mL oral suspension 10 ml .Route .COMPLEX #420 mL 05/17/22 [Rx Last Taken Unknown] Allergy/AdvReac Type Severity Reaction Status Date / Time No Known Allergies Allergy Verified 05/18/22 00:15 Family History Mother Heart disease Myocardial infarction Arthritis Depression Father Thyroid cancer Myocardial infarction Parkinson disease Arthritis Sister Thyroid cancer Arthritis Surgical History Gastrointestinal tube in situ History of esophagogastroduodenoscopy (EGD) History of hemorrhoidectomy History of release of tendon Presence of cardiac pacemaker Tracheostomy tube present (~2013) Social History Smoking Status: Never smoker second hand exposure: No alcohol intake: never substance use type: does not use caffeine: Yes Type: coffee what type of physical activity do you participate in: none ROS ROS ED Constitutional Constitutional ED: Denies chills or fever(s) Cardiovascular Cardiovascular: Reports chest pain; Denies palpitations or racing heartbeat Respiratory/Chest Respiratory/Chest: Denies cough or dyspnea Gastrointestinal Gastrointestinal: Denies abdominal pain, diarrhea, nausea or vomiting Genitourinary Genitourinary ED: Denies dysuria Musculoskeletal Musculoskeletal: Reports myalgias Integumentary Denies rash Neurologic Neurologic: Reports weakness; Denies headache(s) Hematologic/Lymphatic Hematologic/Lymphatic: Denies easy bleeding or easy bruising EXAM Physical Exam Const Vital Signs: 05/18/22 00:12 05/18/22 01:29 05/18/22 02:00 Temperature 97.1 F L Temperature Source Oral Pulse Rate 84 78 75 Respiratory Rate 27 H 30 H 30 H Respiratory Effort Blood Pressure 190/103 H 152/89 H 139/85 H Blood Pressure Mean 132 110 103 Pulse Ox 91 99 100 Oxygen Delivery Method Room Air Room Air 05/18/22 03:00 05/18/22 04:53 05/18/22 06:28 Temperature Temperature Source Pulse Rate 76 73 Respiratory Rate 30 H 22 H Respiratory Effort Non-Labored Blood Pressure 155/102 H 139/77 H Blood Pressure Mean 119 Pulse Ox 100 100 Oxygen Delivery Method Room Air 05/18/22 06:00 Temperature Temperature Source Pulse Rate 73 Respiratory Rate 22 H Respiratory Effort Blood Pressure 139/77 H Blood Pressure Mean 97 Pulse Ox 100 Oxygen Delivery Method Room Air Positive well nourished and well developed General Appearance ED: well developed HEENT Reports moist mucous membranes Eyes PERRL and EOMs intact bilaterally Neck supple Neck Narrative: Tracheostomy tube is in place without secondary changes to suggest infection no crepitance noted of the anterior neck region Chest Wall Chest Narrative: Pacemaker in place in the left chest wall and there is mild diffuse pain on palpation without crepitance or bony deformity noted Resp normal respiratory effort and clear to auscultation bilaterally Resp Narrative: Breath sounds are diminished throughout but overall clear to auscultation with no signs of distress Cardio regular rate and regular rhythm GI non-tender and non-distended GI Narrative: Abdomen is soft nontender nondistended with normoactive bowel sounds there is a PEG tube in place consistent with his past medical history. No voluntary guarding or rigidity no pulsatile mass Auscultation: normoactive bowel sounds Palpation: soft Extremity Extremity Narrative: Patient has chronic changes to his extremity secondary to his CP status but there is no asymmetric edema or pitting edema of the lower extremities and negative Homans' sign bilaterally Neuro oriented x3 and CN's II-XII intact bilaterally Neuro Narrative: Patient has chronic findings secondary to his CP but no new or acute changes Sensorium / Orientation: alert Psych Psych Narrative: Patient has a flat affect Skin no rashes or lesions noted MDM MDM MDM Narrative Medical decision making narrative: Patient presented to the ER hypertensive but has a past medical history of this and otherwise with stable vitals. Because of his report of atypical pain and the fact he states that the whole body hurt but it was more intense along the left chest wall cardiac work-up was initiated. His EKG shows a paced rhythm with concordant ST segment changes but no signs of acute WA. Chest x-ray revealed no acute lung pathology as a cause of his pain and labs showed a normal initial and delta troponin. His potassium was slightly elevated at 5.2 but this is only elevated by 0.1 which is not clinically significant and patient was given 500 mils of fluid to help reduce this. On reevaluation he is resting comfortably his vitals have improved with pain control and as his work-up is negative and his presentation atypical I do not feel there is need for inpatient treatment and is otherwise safe for discharge Lab Data Attestation: I reviewed the patient's lab results. Labs: Laboratory Results - last 24 hr 05/18/22 05/18/22 05/18/22 01:16 01:16 03:28 WBC 10.5 RBC 5.38 Hgb 16.7 H Hct 50.2 MCV 93.3 MCH 31.0 MCHC 33.3 RDW Std Deviation 45.2 H RDW Coeff of Lily 13.2 Plt Count 255 MPV 8.1 Immature Gran % (Auto) 0.400 Neut % (Auto) 61.7 Lymph % (Auto) 29.0 [place] % (Auto) 6.9 Eos % (Auto) 1.4 Baso % (Auto) 0.6 Absolute Neuts (auto) 6.5 Absolute Lymphs (auto) 3.05 Nucleated RBC % 0 Sodium 132 L Potassium 5.2 H Chloride 101 Carbon Dioxide 26.0 Anion Gap 5 BUN 18 Creatinine 0.22 L Estim Creat Clear Calc 352.61 Est GFR (MDRD) Af Amer 574 Est GFR (MDRD) Non-Af 474 BUN/Creatinine Ratio 83.7 H Glucose 88 Calcium 9.7 Magnesium 2.1 Troponin I High Sens 13 16 Radiography Diagnostic Testing: Clinical Impression(s) from Imaging Studies Chest X-Ray 05/18/22 01:36 IMPRESSION: No radiographic evidence of acute cardiopulmonary disease. Electronically Signed: Nicola Valentine MD at 2:24 EST Reading Location ID and State: [facility] / [place] Tel , Service support , Chest x-ray as interpreted by the emergency medicine physician reveals no acute infiltrate pneumothorax or pleural effusion Discharge Plan Triage Chief Complaint: Chest Pain ED Provider: Albert Wright Dx/Rx/DC Orders Clinical Impression: Nonspecific chest pain, Presence of cardiac pacemaker, Essential hypertension Instructions: ED Chest Pain, Uncertain Cause Prescriptions: No Action bacitracin 500 unit/gram packet 1 applic TOPICAL PRN PRN (Reason: Skin Cleansing) Chld Robitussin Cough-Chest DM 5-100 mg/5 mL liquid 10 ml feeding tube Q6H PRN (Reason: Muscle Spasticity) albuterol sulfate 2.5 mg /3 mL (0.083 %) solution for nebulization 2.5 mg inhalation Q4H PRN PRN (Reason: Sob &/Or Wheezing) Qty: 180 6RF zinc oxide 10 % ointment 1 applic topical BID-QID PRN (Reason: Skin Cleansing) sodium chloride 0.9 % solution for nebulization 1 ml inhalation Q8H PRN (Reason: thick secretions) nystatin 100,000 unit/gram cream 1 applic topical BID PRN (Reason: redness) albuterol sulfate [ProAir HFA] 90 mcg/actuation HFA aerosol inhaler 2 puff inhalation TID PRN (Reason: sob) morphine 20 mg/5 mL (4 mg/mL) solution 20 mg PO Q6H PRN (Reason: Pain) sucralfate 100 mg/mL suspension 10 ml .ROUTE .COMPLEX Qty: 420 0RF Rx Instructions: 10 mL twice daily via feeding tube lansoprazole 30 mg tablet,disintegrat, delay rel See Rx Instructions .ROUTE .COMPLEX Qty: 60 11RF Dose Instruction: DISSOLVE 1 TABLET IN WATER AND ADMINISTER THROUGH PEG TUBE ONCE DAILY Rx Instructions: DISSOLVE 1 TABLET IN WATER AND ADMINISTER THROUGH PEG TUBE TWICE DAILY tamsulosin 0.4 mg capsule 0.4 mg PO DAILY Qty: 30 1RF cholecalciferol (vitamin D3) 1,000 UNIT tablet 2,000 unit feeding tube DAILY sennosides 1 TABLET tablet 1 tab feeding tube BID PRN (Reason: Constipation) aspirin 81 MG tablet,chewable 81 mg feeding tube DAILY@0800 alum-mag hydroxide-simeth 30 ML suspension 20 ml PO PRN PRN (Reason: gastric distress) naproxen sodium 220 MG capsule 220 mg G-tube BID PRN PRN (Reason: Pain) cyclobenzaprine 10 MG tablet 10 mg feeding tube BID PRN PRN (Reason: Spasms) hydrocodone-acetaminophen 1 EACH tablet 10 - 325 tab feeding tube PRN PRN (Reason: Pain) Label Comments: take 1 tablet by mouth three times a day if needed guaifenesin 200 mg/5 mL liquid 200 mg feeding tube Q4H PRN (Reason: cough) ferrous sulfate [Henry-In-Domonique] 15 mg iron (75 mg)/mL drops 1 ml PO BID glycerin (adult) Suppository 1 supp RI BID PRN (Reason: Constipation) glycerin (adult) [Fleet Glycerin (Adult)] Suppository 1 supp RI DAILY PRN (Reason: Constipation) Metamucil Sugar-Free (aspart) 3.4 gram/5.8 gram Powder 3 g PO TID PRN (Reason: Constipation) sertraline 20 mg/mL concentrate 50 mg feeding tube QHS dicyclomine 10 mg capsule 20 mg PO Q6H PRN PRN (Reason: abdominal discomfort) Qty: 30 0RF ondansetron [ondansetron] 4 mg tablet,disintegrating 8 mg PO Q8H PRN PRN (Reason: Nausea) Qty: 20 0RF buspirone 30 mg tablet 30 mg feeding tube BID Qty: 180 3RF sodium bicarbonate 1 mEq/mL (8.4 %) solution See Rx Instructions .ROUTE .COMPLEX Qty: 500 11RF Dose Instruction: COMBINE ONE LANSOPRAZOLE CAPSULE WITH 10 milliliters SODIUM BICARBONATE AND ADMINISTER THROUGH ENTERAL FEED TUBE Rx Instructions: COMBINE ONE LANSOPRAZOLE CAPSULE WITH 10 milliliters SODIUM BICARBONATE AND ADMINISTER THROUGH ENTERAL FEED TUBE polyethylene glycol 3350 [Miralax] 17 gram powder in packet 17 g PO BID PRN (Reason: Constipation) Qty: 100 2RF lisinopril 10 mg tablet 10 mg PO DAILY Qty: 90 1RF glycopyrrolate 1 mg tablet 1.5 mg feeding tube BID Qty: 270 3RF amitriptyline 10 mg tablet 10 mg PO QHS Qty: 30 5RF Primary Care Provider: Tyesha Latif Referrals: Tyesha Latif MD [Primary Care Provider] - Activity Restrictions/Additional Instructions: Please continue all your medication as previously directed and return to the ER should you have any further concerns Disposition Disposition: Home, Self Care
[2022-05-18] MEDS: HYDROmorphone 1 MG/ML Syringe IV (04:47)
--- NOTE | 2022-05-18 04:54 | NURSING ---
CALLED [facility] FOR [facility] ETA 7AM
[2022-05-18 06:00] VITALS: BP 139/77; PULSE 73; RESP 22; O2SAT 100
[2022-05-18 06:28] VITALS: BP 139/77; PULSE 73; RESP 22; O2SAT 100
== END 2022-05-18 06:54 | disposition home or self-care (01) ==
PROVIDERS: Emergency Provider Emergency Medicine; PCP Internal Medicine; Visit Provider Emergency Medicine
DX: R07.9 Chest pain, unspecified (principal); I10 Essential (primary) hypertension; Z95.0 Presence of cardiac pacemaker
CPT/HCPCS: 71045; 80048; 83735; 84484; 85025; 93005; 99285; J7040; A4216; J2405

== ENCOUNTER 2022-05-24 20:44 | Emergency (ER) | payer OTHER, MEDICAID, SELFPAY ==
[2022-05-24 20:45] VITALS: BP 155/95; PULSE 94; RESP 18; TEMP 35.7; O2SAT 97; BMI 24.0
--- NOTE | 2022-05-24 21:05 | EKG12_ITS ---
Test Reason : SOB Blood Pressure : / mmHG Vent. Rate : 094 BPM Atrial Rate : 094 BPM P-R Int : 166 ms QRS Dur : 162 ms QT Int : 400 ms P-R-T Axes : 037 237 050 degrees QTc Int : 500 ms Atrial-sensed ventricular-paced rhythm Abnormal ECG Confirmed by CHARITY JOHNSON, RAMÓN ([id number]), online editor LUCIANA GARCIA ([id number]) on 05/27/2022 10:28:15 AM Referred By: SAMIR Confirmed By:RAMÓN NASH MD
--- NOTE | 2022-05-24 21:14 | EX.ED.DYSGE1 ---
HPI <Dr. Beth Dumont MD - Last Filed: 05/26/22 14:24> History of Present Illness Chief Complaint: General Illness Informant: patient and spouse/S.O. Narrative Narrative: Patient presents secondary to generalized pain. 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 He has a trach and PEG. Patient is had increased pain to his abdomen, back, chest, and neck area over the past couple of weeks. states today that he was fed up and would refuse to take any medication other than his pain meds. Tonight he stated he disorder to the hospital to . Patient now states that he is willing to undergo testing and does not feel that way currently. does report he has had increased thick secretions from his trach over the past week or so. He had a low-grade fever for 1 day last week that quickly resolved. [facility] <Dr. Beth Dumont MD - Last Filed: 05/26/22 14:24> [facility] Medical History Acute respiratory failure Altered mental status Anemia Anxiety Back pain Back pain Cardiology follow-up encounter Cardiomyopathy Carotid artery calcification Chest pain Chest pain Chronic hypoxemic respiratory failure Chronic low back pain Complete heart block Compression fracture of thoracic spine, non-traumatic Depression Diarrhea Dietary restriction Difficulty balancing Dilated cardiomyopathy Frequent headaches GERD (gastroesophageal reflux disease) Heart disease Hereditary progressive muscular dystrophy History of echocardiogram History of edema History of IBS History of urinary calculi Hypertension Hyponatremia Injury of head and neck Irritable bowel syndrome Kidney stones Limb weakness Malfunction of gastrostomy tube MRSA (methicillin resistant 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) colonization Muscular dystrophy Non-smoker Non-ST elevation [place] (NSTEMI) On home oxygen therapy Otitis interna PEG tube malfunction Pneumonia Pneumonia Pseudomonas pneumonia Shoulder pain Sick sinus syndrome SOB (shortness of breath) Thyroid disease Troponin I above reference range Uses wheelchair Ventilator dependent Home Medications cholecalciferol (vitamin D3) 25 mcg (1,000 unit) tablet 2,000 unit feeding tube DAILY SUPPLEMENT 07/01/14 [History Last Taken 10/30/21] aspirin 81 mg chewable tablet 81 mg feeding tube DAILY@0800 HEART HEATLTH 03/09/15 [History Last Taken 10/30/21] sennosides 8.6 mg tablet 1 tab feeding tube BID PRN Constipation 11/05/15 [History Last Taken 10/30/21] bacitracin 500 unit/gram topical packet 1 applic topical PRN PRN Skin Cleansing 07/05/17 [History Last Taken Unknown] aluminum-mag hydroxide-simethicone 400 mg-400 mg-40 mg/5 mL oral susp 20 ml PO PRN PRN gastric distress 07/07/18 [History Last Taken Unknown] naproxen sodium 220 mg capsule 220 mg G-tube BID PRN PRN Pain 07/07/18 [History Last Taken 10/29/21] cyclobenzaprine 10 mg tablet 10 mg feeding tube BID PRN PRN Spasms 07/10/18 [History Last Taken 10/29/21] dextromethorphan-guaifenesin 5 mg-100 mg/5 mL oral liquid (Child Robitussin Cough-Chest DM) 10 ml feeding tube Q6H PRN Muscle Spasticity 02/11/20 [History Last Taken Unknown] sodium chloride 0.9 % for nebulization 1 ml inhalation Q8H PRN thick secretions 04/10/21 [History Last Taken Unknown] zinc oxide 10 % topical ointment 1 applic topical BID-QID PRN Skin Cleansing 04/10/21 [History Last Taken Unknown] albuterol sulfate 90 mcg/actuation aerosol inhaler (ProAir HFA) 2 puff inhalation TID PRN sob 08/06/21 [History Last Taken Unknown] ferrous sulfate 15 mg iron (75 mg)/mL oral drops (Henry-In-Domonique) 1 ml PO BID 08/13/21 [History Last Taken 10/30/21] guaifenesin 200 mg/5 mL oral liquid 200 mg feeding tube Q4H PRN cough 08/13/21 [History Last Taken Unknown] buspirone 30 mg tablet 30 mg feeding tube BID ANXIETY #180 tabs 09/10/21 [Rx Last Taken 10/30/21] morphine 20 mg/5 mL (4 mg/mL) oral solution 16 mg PO Q4H PRN PRN Pain 09/21/21 [History Last Taken 10/30/21 08:00] nystatin 100,000 unit/gram topical cream 1 applic topical BID PRN redness 09/21/21 [History Last Taken Unknown] glycerin (adult) 1 supp MT BID PRN Constipation 10/30/21 [History Last Taken 10/30/21] glycerin (adult) (Fleet Glycerin (Adult) rectal suppository) 1 supp MT DAILY PRN Constipation 10/30/21 [History Last Taken Unknown] psyllium husk (aspartame) 3.4 gram/5.8 gram oral powder (Metamucil Sugar-Free (aspartame)) 3 g PO TID PRN Constipation 10/30/21 [History Last Taken Unknown] sertraline 20 mg/mL oral concentrate 50 mg feeding tube QHS 10/30/21 [History Last Taken 10/29/21] sodium bicarbonate 1 mEq/mL (8.4 %) intravenous solution See Rx Instructions .Route .COMPLEX #500 mL 12/03/21 [Rx Last Taken Unknown] polyethylene glycol 3350 17 gram oral powder packet (Miralax) 17 g PO BID PRN Constipation #100 ea 01/17/22 [Rx Last Taken Unknown] lisinopril 10 mg tablet 10 mg PO DAILY #90 tabs 04/09/22 [Rx Last Taken Unknown] dicyclomine 10 mg capsule 20 mg PO Q6H PRN PRN abdominal discomfort #30 CAPSULES 05/07/22 [Rx Last Taken Unknown] ondansetron 4 mg disintegrating tablet 8 mg PO Q8H PRN PRN Nausea #20 tabs 05/07/22 [Rx Last Taken Unknown] glycopyrrolate 1 mg tablet 1.5 mg feeding tube BID GI #270 tabs 05/08/22 [Rx Last Taken Unknown] amitriptyline 10 mg tablet 10 mg PO QHS #30 tabs 05/10/22 [Rx Last Taken Unknown] lansoprazole 30 mg delayed release,disintegrating tablet See Rx Instructions .Route .COMPLEX #60 TABLETS 05/17/22 [Rx Last Taken Unknown] sucralfate 100 mg/mL oral suspension 10 ml .Route .COMPLEX #420 mL 05/17/22 [Rx Last Taken Unknown] albuterol sulfate 2.5 mg/3 mL (0.083 %) solution for nebulization 2.5 mg (3 mL) inhalation Q4H PRN PRN Sob &/Or Wheezing #180 mL 05/20/22 [Rx Last Taken Unknown] cephalexin 250 mg/5 mL oral suspension 500 mg (10 mL) feeding tube TID 7 days #210 mL 05/25/22 [Rx Last Taken Unknown] Allergy/AdvReac Type Severity Reaction Status Date / Time No Known Allergies Allergy Verified 05/23/22 07:50 Family History Mother Heart disease Myocardial infarction Arthritis Depression Father Thyroid cancer Myocardial infarction Parkinson disease Arthritis Sister Thyroid cancer Arthritis Surgical History Gastrointestinal tube in situ History of esophagogastroduodenoscopy (EGD) History of hemorrhoidectomy History of release of tendon Presence of cardiac pacemaker Tracheostomy tube present (~2013) Social History Smoking Status: Never smoker second hand exposure: No alcohol intake: never substance use type: does not use caffeine: Yes Type: coffee what type of physical activity do you participate in: none ROS <Dr. Beth Dumont MD - Last Filed: 05/26/22 14:24> ROS ED Constitutional Constitutional ED: Reports other Details: Fever 1 day last week, none since. Eyes Eyes: Denies change in vision ENT ENT ED: Reports other Details: Trach in place. Increased secretions noted recently per . ; Denies rhinorrhea Cardiovascular Cardiovascular: Reports chest pain Respiratory/Chest Respiratory/Chest: Reports dyspnea Gastrointestinal Gastrointestinal: Reports abdominal pain Musculoskeletal Musculoskeletal: Reports back pain and neck pain Psychiatric Psychiatric: Reports depression EXAM <Dr. Beth Dumont MD - Last Filed: 05/26/22 14:24> Physical Exam Const Vital Signs: 05/24/22 20:45 05/24/22 21:58 05/25/22 00:05 Temperature 96.3 F L Temperature Source Temporal Pulse Rate 94 105 H Respiratory Rate 18 Blood Pressure 155/95 H 132/100 H 151/90 H Blood Pressure Mean 115 110 110 Pulse Ox 97 98 99 Oxygen Delivery Method Room Air Room Air Positive well nourished and well developed General Appearance ED: well developed HEENT Reports moist mucous membranes HEENT Narrative: Tracheostomy in place with thick mucus. Eyes EOMs intact bilaterally Chest Wall inspection of chest normal and palpation of chest normal Resp normal respiratory effort Resp Narrative: Rhonchi bilaterally with diminished breath sounds at the bilateral bases. Cardio regular rate and regular rhythm GI non-tender Auscultation: hypoactive bowel sounds Palpation: soft Extremity Extremity Narrative: 2+ bilateral lower extremity edema, symmetric Neuro oriented x3 Psych mental status grossly normal Skin no rashes or lesions noted <Dr. Albert Wright DO - Last Filed: 05/25/22 02:36> Physical Exam Const Vital Signs: 05/24/22 20:45 05/24/22 21:58 05/25/22 00:05 Temperature 96.3 F L Temperature Source Temporal Pulse Rate 94 105 H Respiratory Rate 18 Blood Pressure 155/95 H 132/100 H 151/90 H Blood Pressure Mean 115 110 110 Pulse Ox 97 98 99 Oxygen Delivery Method Room Air Room Air MDM <Dr. Beth Dumont MD - Last Filed: 05/26/22 14:24> MDM MDM Narrative Medical decision making narrative: Patient placed on quality assurance monitor chassis. EKG ordered. Lab work obtained. Sputum culture ordered along with chest x-ray. Lab Data Attestation: I reviewed the patient's lab results. Labs: Laboratory Results - last 24 hr 05/24/22 05/24/22 05/25/22 21:32 21:32 00:18 WBC 9.8 RBC 5.74 Hgb 17.8 H Hct 52.4 MCV 91.3 MCH 31.0 MCHC 34.0 RDW Std Deviation 44.5 H RDW Coeff of Lily 13.2 Plt Count 315 MPV 7.9 Immature Gran % (Auto) 0.200 Neut % (Auto) 75.0 H Lymph % (Auto) 18.7 L [place] % (Auto) 5.4 Eos % (Auto) 0.3 Baso % (Auto) 0.4 Absolute Neuts (auto) 7.4 Absolute Lymphs (auto) 1.84 Nucleated RBC % 0 Sodium 135 L Potassium 4.2 Chloride 101 Carbon Dioxide 28.0 Anion Gap 6 BUN 21 H Creatinine 0.23 L Estim Creat Clear Calc 337.28 Est GFR (MDRD) Af Amer 536 Est GFR (MDRD) Non-Af 443 BUN/Creatinine Ratio 92.1 H Glucose 111 H Calcium 10.2 H Total Bilirubin 0.40 Direct Bilirubin 0.17 AST 41 H ALT 70 H Alkaline Phosphatase 156 H Troponin I High Sens 16 Total Protein 8.3 H Albumin 3.8 Globulin 4.5 H Urine Color Urine Clarity Urine pH Ur Specific [place] Urine Protein Urine Glucose (UA) Urine Ketones Urine Occult Blood Urine Nitrite Urine Bilirubin Urine Urobilinogen Ur Leukocyte Esterase Urine RBC Urine WBC Ur Squamous Epith Cells Urine Bacteria Urine Mucus POC Glucose 97 05/25/22 01:37 WBC RBC Hgb Hct MCV MCH MCHC RDW Std Deviation RDW Coeff of Lily Plt Count MPV Immature Gran % (Auto) Neut % (Auto) Lymph % (Auto) [place] % (Auto) Eos % (Auto) Baso % (Auto) Absolute Neuts (auto) Absolute Lymphs (auto) Nucleated RBC % Sodium Potassium Chloride Carbon Dioxide Anion Gap BUN Creatinine Estim Creat Clear Calc Est GFR (MDRD) Af Amer Est GFR (MDRD) Non-Af BUN/Creatinine Ratio Glucose Calcium Total Bilirubin Direct Bilirubin AST ALT Alkaline Phosphatase Troponin I High Sens Total Protein Albumin Globulin Urine Color Yellow Urine Clarity Cloudy Urine pH 6.0 Ur Specific [place] 1.020 Urine Protein 15 H Urine Glucose (UA) Normal Urine Ketones 15 H Urine Occult Blood 25 H Urine Nitrite Negative Urine Bilirubin Negative Urine Urobilinogen Normal Ur Leukocyte Esterase 500 H Urine RBC 10-25 SEEN Urine WBC >100 SEEN Ur Squamous Epith Cells 0 SEEN Urine Bacteria 2+ Urine Mucus 0 SEEN POC Glucose Radiography Chest X-Ray - ED: 1 View, Read by ED Physician, Chronic Changes and No Infiltrates Diagnostic Testing: Clinical Impression(s) from Imaging Studies Chest X-Ray 05/24/22 21:45 IMPRESSION: No acute pulmonary abnormality. There has been no change from the reference exam. Electronically Signed: Getachew Martinez MD at 22:01 EST , Abdomen/Pelvis CT 05/24/22 23:08 IMPRESSION: No change in the appearance of the abdomen and pelvis from the reference exam. Electronically Signed: Getachew Martinez MD at 23:58 EST , Brain CT 05/24/22 23:08 IMPRESSION: No acute findings in the head/brain. There has been no change from the reference exam. Electronically Signed: Getachew Martinez MD at 0:04 EST , EKG Initial EKG: Interpretation: - (AV paced rhythm at 94 bpm.) Treatment and Re-Evaluation Narrative: CBC reveals normal white count. 75% neutrophils noted. Hemoglobin is concentrated at 17.8. Chemistry studies largely unremarkable. LFTs reveal alk phos of 156, otherwise values normal. Troponin is normal at 16. Portable chest x-ray per my interpretation reveals no obvious infiltrate. Radiology interpretation is reviewed and agrees. EKG is paced rhythm. On repeat evaluation patient is resting comfortably at bedside. He is not hypoxic. He becomes very frustrated and focuses on the fact that he is not going to be able to urinate or have bowel movements normally now because everything is lumped together. Per he was able to have a bowel movement this morning and has been urinating today without difficulty. Patient is sent for CT scan of the flank along with head CT given his complaint of headache. CT scan of the head reveals no acute changes. CT flank reveals no acute changes. These test results are discussed with patient and at bedside. She continues to express concern that he seems to have trouble expressing his thoughts which is not normal for him. She states the only time he had trouble like that before was when they were initially doing boost supplements through his PEG tube and he was not getting proper nutrition. His blood sugar is checked and is 97. Patient is not able to undergo MRI of the head given his pacemaker that is not MRI compliant. He will be sent for CTA of the head and neck. Urinalysis will be obtained. We will plan for overnight observation and repeat head CT tomorrow to ensure no acute neuro findings to explain his difficulty with expressing his thoughts. Addendum: IV access was not able to be re-established for CTA and patient refused further attempts. I spoke with the hospitalist who stated that repeat head CT tomorrow morning is no longer the standard of care and would not be performed. Patient signed out to oncoming physician to check urinalysis which is currently pending. <Dr. Albert Wright, DO - Last Filed: 05/25/22 02:36> [facility] Lab Data Labs: Laboratory Results - last 24 hr 05/24/22 05/24/22 05/25/22 21:32 21:32 00:18 WBC 9.8 RBC 5.74 Hgb 17.8 H Hct 52.4 MCV 91.3 MCH 31.0 MCHC 34.0 RDW Std Deviation 44.5 H RDW Coeff of Lily 13.2 Plt Count 315 MPV 7.9 Immature Gran % (Auto) 0.200 Neut % (Auto) 75.0 H Lymph % (Auto) 18.7 L [place] % (Auto) 5.4 Eos % (Auto) 0.3 Baso % (Auto) 0.4 Absolute Neuts (auto) 7.4 Absolute Lymphs (auto) 1.84 Nucleated RBC % 0 Sodium 135 L Potassium 4.2 Chloride 101 Carbon Dioxide 28.0 Anion Gap 6 BUN 21 H Creatinine 0.23 L Estim Creat Clear Calc 337.28 Est GFR (MDRD) Af Amer 536 Est GFR (MDRD) Non-Af 443 BUN/Creatinine Ratio 92.1 H Glucose 111 H Calcium 10.2 H Total Bilirubin 0.40 Direct Bilirubin 0.17 AST 41 H ALT 70 H Alkaline Phosphatase 156 H Troponin I High Sens 16 Total Protein 8.3 H Albumin 3.8 Globulin 4.5 H Urine Color Urine Clarity Urine pH Ur Specific [place] Urine Protein Urine Glucose (UA) Urine Ketones Urine Occult Blood Urine Nitrite Urine Bilirubin Urine Urobilinogen Ur Leukocyte Esterase Urine RBC Urine WBC Ur Squamous Epith Cells Urine Bacteria Urine Mucus POC Glucose 97 05/25/22 01:37 WBC RBC Hgb Hct MCV MCH MCHC RDW Std Deviation RDW Coeff of Lily Plt Count MPV Immature Gran % (Auto) Neut % (Auto) Lymph % (Auto) [place] % (Auto) Eos % (Auto) Baso % (Auto) Absolute Neuts (auto) Absolute Lymphs (auto) Nucleated RBC % Sodium Potassium Chloride Carbon Dioxide Anion Gap BUN Creatinine Estim Creat Clear Calc Est GFR (MDRD) Af Amer Est GFR (MDRD) Non-Af BUN/Creatinine Ratio Glucose Calcium Total Bilirubin Direct Bilirubin AST ALT Alkaline Phosphatase Troponin I High Sens Total Protein Albumin Globulin Urine Color Yellow Urine Clarity Cloudy Urine pH 6.0 Ur Specific [place] 1.020 Urine Protein 15 H Urine Glucose (UA) Normal Urine Ketones 15 H Urine Occult Blood 25 H Urine Nitrite Negative Urine Bilirubin Negative Urine Urobilinogen Normal Ur Leukocyte Esterase 500 H Urine RBC 10-25 SEEN Urine WBC >100 SEEN Ur Squamous Epith Cells 0 SEEN Urine Bacteria 2+ Urine Mucus 0 SEEN POC Glucose Radiography Diagnostic Testing: Clinical Impression(s) from Imaging Studies Chest X-Ray 05/24/22 21:45 IMPRESSION: No acute pulmonary abnormality. There has been no change from the reference exam. Electronically Signed: Getachew Martinez MD at 22:01 EST , Abdomen/Pelvis CT 05/24/22 23:08 IMPRESSION: No change in the appearance of the abdomen and pelvis from the reference exam. Electronically Signed: Getachew Martinez MD at 23:58 EST , Brain CT 05/24/22 23:08 IMPRESSION: No acute findings in the head/brain. There has been no change from the reference exam. Electronically Signed: Getachew Martinez MD at 0:04 EST , Treatment and Re-Evaluation Narrative: CBC reveals normal white count. 75% neutrophils noted. Hemoglobin is concentrated at 17.8. Chemistry studies largely unremarkable. LFTs reveal alk phos of 156, otherwise values normal. Troponin is normal at 16. Portable chest x-ray per my interpretation reveals no obvious infiltrate. Radiology interpretation is reviewed and agrees. EKG is paced rhythm. On repeat evaluation patient is resting comfortably at bedside. He is not hypoxic. He becomes very frustrated and focuses on the fact that he is not going to be able to urinate or have bowel movements normally now because everything is lumped together. Per he was able to have a bowel movement this morning and has been urinating today without difficulty. Patient is sent for CT scan of the flank along with head CT given his complaint of headache. CT scan of the head reveals no acute changes. CT flank reveals no acute changes. These test results are discussed with patient and at bedside. She continues to express concern that he seems to have trouble expressing his thoughts which is not normal for him. She states the only time he had trouble like that before was when they were initially doing boost supplements through his PEG tube and he was not getting proper nutrition. His blood sugar is checked and is 97. Patient is not able to undergo MRI of the head given his pacemaker that is not MRI compliant. He will be sent for CTA of the head and neck. Urinalysis will be obtained. We will plan for overnight observation and repeat head CT tomorrow to ensure no acute neuro findings to explain his difficulty with expressing his thoughts. Patient was signed out to me while awaiting results of a urine sample. The UA now showed infection with greater than 100 white blood cells +2 bacteria and no skin/epithelial cell contamination. This is most likely the cause for the patient's symptoms and as we had a reason for his mild change in mental status with a UTI I do not feel there is need to proceed with the CTA of the head neck. The patient does not have urosepsis or acute kidney injury changes based on his vitals or laboratory exam. I discussed with the and patient possibility of snf placement based on his worsening symptoms. The patient states that he does not want to go to a snf and would rather go home. states she is comfortable caring for the patient at home. Therefore this time as he does not have urosepsis or DRAGAN changes there is a reason for his symptoms and the fact he has UTI he will be placed on antibiotics and is otherwise safe for discharge. Discharge Plan Triage Chief Complaint: General Illness ED Provider: Beth Dumont Dx/Rx/DC Orders Clinical Impression: Difficulty with speech, Chronic back pain, Urinary tract infection Instructions: Urinary Tract Infections in Men Prescriptions: New cephalexin 250 mg/5 mL suspension for reconstitution 500 mg feeding tube TID 7 Days Qty: 210 0RF No Action bacitracin 500 unit/gram packet 1 applic TOPICAL PRN PRN (Reason: Skin Cleansing) Chld Robitussin Cough-Chest DM 5-100 mg/5 mL liquid 10 ml feeding tube Q6H PRN (Reason: Muscle Spasticity) zinc oxide 10 % ointment 1 applic topical BID-QID PRN (Reason: Skin Cleansing) sodium chloride 0.9 % solution for nebulization 1 ml inhalation Q8H PRN (Reason: thick secretions) nystatin 100,000 unit/gram cream 1 applic topical BID PRN (Reason: redness) albuterol sulfate [ProAir HFA] 90 mcg/actuation HFA aerosol inhaler 2 puff inhalation TID PRN (Reason: sob) morphine 20 mg/5 mL (4 mg/mL) solution 16 mg PO Q4H PRN PRN (Reason: Pain) sucralfate 100 mg/mL suspension 10 ml .ROUTE .COMPLEX Qty: 420 0RF Rx Instructions: 10 mL twice daily via feeding tube lansoprazole 30 mg tablet,disintegrat, delay rel See Rx Instructions .ROUTE .COMPLEX Qty: 60 11RF Dose Instruction: DISSOLVE 1 TABLET IN WATER AND ADMINISTER THROUGH PEG TUBE ONCE DAILY Rx Instructions: DISSOLVE 1 TABLET IN WATER AND ADMINISTER THROUGH PEG TUBE TWICE DAILY cholecalciferol (vitamin D3) 1,000 UNIT tablet 2,000 unit feeding tube DAILY sennosides 1 TABLET tablet 1 tab feeding tube BID PRN (Reason: Constipation) aspirin 81 MG tablet,chewable 81 mg feeding tube DAILY@0800 alum-mag hydroxide-simeth 30 ML suspension 20 ml PO PRN PRN (Reason: gastric distress) naproxen sodium 220 MG capsule 220 mg G-tube BID PRN PRN (Reason: Pain) cyclobenzaprine 10 MG tablet 10 mg feeding tube BID PRN PRN (Reason: Spasms) guaifenesin 200 mg/5 mL liquid 200 mg feeding tube Q4H PRN (Reason: cough) ferrous sulfate [Henry-In-Domonique] 15 mg iron (75 mg)/mL drops 1 ml PO BID glycerin (adult) Suppository 1 supp MT BID PRN (Reason: Constipation) glycerin (adult) [Fleet Glycerin (Adult)] Suppository 1 supp MT DAILY PRN (Reason: Constipation) Metamucil Sugar-Free (aspart) 3.4 gram/5.8 gram Powder 3 g PO TID PRN (Reason: Constipation) sertraline 20 mg/mL concentrate 50 mg feeding tube QHS dicyclomine 10 mg capsule 20 mg PO Q6H PRN PRN (Reason: abdominal discomfort) Qty: 30 0RF ondansetron [ondansetron] 4 mg tablet,disintegrating 8 mg PO Q8H PRN PRN (Reason: Nausea) Qty: 20 0RF buspirone 30 mg tablet 30 mg feeding tube BID Qty: 180 3RF sodium bicarbonate 1 mEq/mL (8.4 %) solution See Rx Instructions .ROUTE .COMPLEX Qty: 500 11RF Dose Instruction: COMBINE ONE LANSOPRAZOLE CAPSULE WITH 10 milliliters SODIUM BICARBONATE AND ADMINISTER THROUGH ENTERAL FEED TUBE Rx Instructions: COMBINE ONE LANSOPRAZOLE CAPSULE WITH 10 milliliters SODIUM BICARBONATE AND ADMINISTER THROUGH ENTERAL FEED TUBE polyethylene glycol 3350 [Miralax] 17 gram powder in packet 17 g PO BID PRN (Reason: Constipation) Qty: 100 2RF lisinopril 10 mg tablet 10 mg PO DAILY Qty: 90 1RF glycopyrrolate 1 mg tablet 1.5 mg feeding tube BID Qty: 270 3RF amitriptyline 10 mg tablet 10 mg PO QHS Qty: 30 5RF albuterol sulfate 2.5 mg /3 mL (0.083 %) solution for nebulization 2.5 mg inhalation Q4H PRN PRN (Reason: Sob &/Or Wheezing) Qty: 180 6RF Primary Care Provider: Tyesha Latif Referrals: Tyesha Latif MD [Primary Care Provider] - Activity Restrictions/Additional Instructions: Your work-up today now shows a urinary tract infection but there are no signs that it is affecting your kidneys or moving in your bloodstream. Therefore take the antibiotic as directed to help resolve the infection and it would typically take 2 days before you notice improvement of symptoms. If you have any further concerns please return for repeat evaluation Disposition Disposition: Home, Self Care Discharge Date/Time: 05/25/22 03:32
[2022-05-24] MEDS: Morphine 4 MG/ML Syringe IV (21:29)
[2022-05-24] MEDS: 0.9% Normal Saline 1,000 ML 150 ML IV (21:29)
[2022-05-24 21:44] LABS: Absolute Lymphocyte Count 1.84 X10^3/uL (0.83-4.51); Absolute Neutrophil Count 7.4 X10^3/uL (2.0-7.7); Basophil# 0.04 X10^3/uL; Basophil% 0.4 % (0-1); Eosinophil# 0.03 X10^3/uL; Eosinophils% 0.3 % (0-5); Hematocrit 52.4 % (40-54); Hemoglobin 17.8 g/dL (13.0-16.5); Lymphocyte # 1.84 X10^3/ul (0.83-4.51); Lymphocyte % 18.7 % (19-41); Mean Corpuscular Volume 91.3 fL (80-94); Mean Platelet Vol. 7.9 fl (6.2-12.0); Monocyte# 0.53 X10^3/uL; Monocyte% 5.4 % (0-10); NRBC Flagged by Analyzer 0 % (0-5); Neutrophil # 7.37 X10^3/uL (2.7-7.7); Platelet Count 315 K/mm3 (150-450); RBC Distribution Width CV 13.2 % (11.6-14.6); RBC Distribution Width SD 44.5 fl (35.1-43.9); Red Blood Count 5.74 M/mm3 (4.6-6.2); White Blood Count 9.8 K/mm3 (4.4-11.0)
--- NOTE | 2022-05-24 21:45 | RAD_ITS ---
EXAM: XR CHEST, 1 VIEW CLINICAL INDICATION: cough TECHNIQUE: Frontal view of the chest. This report was created using [employer] report generation technology. COMPARISON: 05/18/2022 FINDINGS: LUNGS AND PLEURAL SPACES: Unremarkable. No consolidation or edema. No pneumothorax. No effusion. HEART: Unremarkable. Cardiac silhouette not enlarged. MEDIASTINUM: Central airways and mediastinal contour are unremarkable. BONES/JOINTS: Unremarkable. SOFT TISSUES: Unremarkable. TUBES, LINES AND DEVICES: Left-sided pacemaker in stable position. Tracheostomy tube in stable position. RAD/Chest 1 View (Portable) IMPRESSION: No acute pulmonary abnormality. There has been no change from the reference exam. Electronically Signed: Getachew Martinez MD at 22:01 EST ,
[2022-05-24 21:58] VITALS: BP 132/100; PULSE 105; O2SAT 98
[2022-05-24 22:07] LABS: AST(SGOT) 41 U/L (15-37); Alanine Aminotransfer ALT/SGPT 70 U/L (16-61); Albumin, Serum 3.8 g/dL (3.2-5.0); Alkaline Phosphatase 156 U/L (45-117); Anion Gap 6 (5-15); BUN 21 mg/dL (7-18); BUN/Creat Ratio 92.1 RATIO (10-20); Bilirubin, Direct 0.17 mg/dL (0.00-0.30); Calcium,Total 10.2 mg/dL (8.5-10.1); Chloride 101 mmol/L (98-107); Creatinine, Serum 0.23 mg/dL (0.70-1.30); EST Glomerular Filtration Rate 443 mL/min (>60); Est Glom Filt Rate - Afr Amer 536 mL/min (>60); Globulin 4.5 g/dL (2.2-4.2); Glucose 111 mg/dL (74-106); Potassium 4.2 mmol/L (3.5-5.1); Protein, Total 8.3 g/dL (6.4-8.2); Sodium Level 135 mmol/L (136-145); Troponin-I HS 16 pg/mL (3.0-78.0)
--- NOTE | 2022-05-24 23:08 | CT_ITS ---
EXAM: CT ABDOMEN AND PELVIS WITHOUT INTRAVENOUS CONTRAST CLINICAL INDICATION: abd pain TECHNIQUE: Helically acquired images were obtained of the abdomen and pelvis without intravenous contrast. This CT exam was performed using one or more of the following dose reduction techniques: automated exposure control, adjustment of the mA and/or kV according to patient size, and/or use of iterative reconstruction technique. This report was created using [email or web address] report generation technology. COMPARISON: 05/07/2022 FINDINGS: LOWER THORAX: Unremarkable. Lung bases are clear. No cardiomegaly. No significant pericardial effusion. ABDOMEN: LIVER: Unremarkable. Homogeneous. GALLBLADDER AND BILE DUCTS: Unremarkable. No calcified gallstones. No gallbladder distention or wall edema. No intra- or extrahepatic biliary ductal dilation. PANCREAS: Unremarkable. No focal cystic mass. SPLEEN: Unremarkable. Normal size without focal cystic or solid mass. ADRENALS: Unremarkable. No nodules. KIDNEYS AND URETERS: There are bilateral nonobstructing renal calculi. Normal renal size and position. STOMACH AND BOWEL: Patient appears to have nonrotation of the bowel with the small bowel on the right hemiabdomen in the colon in the left hemiabdomen. No stomach or bowel distention. No focal inflammatory change. PELVIS: APPENDIX: No evidence of acute appendicitis. BLADDER: Unremarkable. REPRODUCTIVE: Unremarkable as visualized. No mass. ABDOMEN and PELVIS: INTRAPERITONEAL SPACE: Unremarkable. No ascites or other fluid collection. No free air. BONES/JOINTS: Unremarkable. No suspicious lytic or blastic abnormality. SOFT TISSUES: There is total fatty atrophy of the spinous in pelvic musculature. No discrete abdominal or pelvic wall hernia. VASCULATURE: Unremarkable. Abdominal aorta is non-dilated. LYMPH NODES: Unremarkable. No enlarged lymph nodes. TUBES, LINES AND DEVICES: Percutaneous gastrojejunostomy tube is in stable position with the distal tip in the right upper quadrant. CT/Abdomen/Pelvis without Cont IMPRESSION: No change in the appearance of the abdomen and pelvis from the reference exam. Electronically Signed: Getachew Martinez MD at 23:58 EST ,
--- NOTE | 2022-05-24 23:08 | CT_ITS ---
EXAM: CT HEAD WITHOUT INTRAVENOUS CONTRAST CLINICAL INDICATION: confusion TECHNIQUE: Multiple axial images were obtained of the head without intravenous contrast. This CT exam was performed using one or more of the following dose reduction techniques: automated exposure control, adjustment of the mA and/or kV according to patient size, and/or use of iterative reconstruction technique. This report was created using [employer] report generation technology. COMPARISON: 03/08/2022 FINDINGS: BRAIN AND EXTRA-AXIAL SPACES: Unremarkable. No intra- or extra-axial hemorrhage. No evidence of acute infarct. No intracranial mass or mass effect. There is preservation of the benitez/white matter interface. Posterior fossa structures are unremarkable. Ventricles are appropriate for age. No hydrocephalus. Basal cisterns are patent. BONES/JOINTS: Unremarkable. No discrete lytic or blastic abnormalities. SINUSES: There is mucosal thickening in the left frontal sinus. MASTOID AIR CELLS: Unremarkable. Clear. ORBITS: Visualized globes, extraocular muscles, optic nerves and retrobulbar fat appear unremarkable. CT/Brain/Head without Contrast IMPRESSION: No acute findings in the head/brain. There has been no change from the reference exam. Electronically Signed: Getachew Martinez MD at 0:04 EST ,
[2022-05-25 00:05] VITALS: BP 151/90; O2SAT 99
[2022-05-25 00:35] LABS: Bedside Glucose 97 mg/dL (74-106)
--- NOTE | 2022-05-25 01:10 | ED.RN ---
Multiple IV attempts done on patient to ensure adequate IV access for CT scans. Unable to get a good IV on patients, after 3rd stick patient stated stop, no more pokes. Dr. Dumont notified that IV access unable to obtain at this time. This RN then attempted to obtain urine sample from patient. Sample cup in place and this RN compressed pt. bladder to stimulate urine to flow and pt. states do not touch me, do not put a catheter in my either. If I can't go then that is that. RN educated pt. that IV access was pertinent to ordered tests and urine sample is necessary to check for infection. Pt. stated I don't care, let it all go. I am done. Pt ran home to grab supplies for the night. will be notified of patient requests when she returns. notified.
[2022-05-25 01:47] LABS: Color, Urine Yellow (Yellow); Glucose, Dipstick Normal (Normal); Ketone-Dipstick 15 mg/dl (Negative); Leukocyte Esterase-Dipstick 500 /ul (Negative); Mucous, Urine 0 SEEN /hpf (<or=2+); Nitrite-Dipstick Negative (Negative); Occult Blood-Urine 25 /ul (Negative); Protein-Dipstick 15 mg/dl (Negative); Squamous Epithelial Cells - UA 0 SEEN /hpf (0-5); Urine Bilirubin Dipstick Negative (Negative); Urine Clarity Cloudy (Clear); Urine Urobilinogen Normal (Normal)
[2022-05-25 02:01] LABS: Bacteria 2+ /hpf (None Seen); Red Blood Cells-Urine 10-25 SEEN /hpf (0-5); White Blood Cells >100 SEEN /hpf (0-5)
[2022-05-25] MEDS: Cephalexin Suspension 250 MG/5 ML PO.SYRINGE 500 MG PO (02:34)
[2022-05-25 03:02] VITALS: BP 161/92; PULSE 78; RESP 26; O2SAT 98
== END 2022-05-25 03:32 | disposition home or self-care (01) ==
PROVIDERS: Emergency Provider Emergency Medicine; PCP Internal Medicine; Visit Provider Emergency Medicine
DX: R47.9 Unspecified speech disturbances (principal); G82.50 Quadriplegia, unspecified; Z93.1 Gastrostomy status; N39.0 Urinary tract infection, site not specified; I10 Essential (primary) hypertension; G89.29 Other chronic pain; M54.9 Dorsalgia, unspecified
CPT/HCPCS: 31720; 70450; 71045; 74176; 80048; 80076; 81001; 82962; 84484; 85025; 87040; 87070; 87077; 87086; 87088; 87184; 87186; 87205; 93005; 96361; 96374; 99285; J7030; A4216

== ENCOUNTER 2022-05-25 09:14 | Inpatient (IN) | payer OTHER, MEDICAID, SELFPAY ==
[2022-05-25] VITALS (20 sets, daily range): BP systolic 108–191; BP diastolic 80–111; PULSE 85–120; RESP 14–26; TEMP 36.4–36.8; O2SAT 87–987; BMI 58.1; BMI 24.9
--- NOTE | 2022-05-25 09:23 | EX.ED.DYSGE1 ---
HPI History of Present Illness Chief Complaint: Confusion Informant: spouse/S.O. and EMS Limited: other (Patient is nonverbal) Onset/Context/Timing Onset: Today Context: Gradual Onset Timing: Continuous Narrative Narrative: Patient presents with confusion that became worse today. Patient was seen here yesterday and was diagnosed with a urinary tract infection. Patient was started on Keflex. Today the states patient has been more confused. states that the patient kept telling her that his body was tightening up. Patient is unable to answer any of my questions and is a poor historian. notes with noted patient was having some increased mucus drainage out of his tracheostomy tube. also noted the patient was having some sweats at home. [facility] Medical History Acute respiratory failure Altered mental status Anemia Anxiety Back pain Back pain Cardiology follow-up encounter Cardiomyopathy Carotid artery calcification Chest pain Chest pain Chronic hypoxemic respiratory failure Chronic low back pain Complete heart block Compression fracture of thoracic spine, non-traumatic Depression Diarrhea Dietary restriction Difficulty balancing Dilated cardiomyopathy Frequent headaches GERD (gastroesophageal reflux disease) Heart disease Hereditary progressive muscular dystrophy History of echocardiogram History of edema History of IBS History of urinary calculi Hypertension Hyponatremia Injury of head and neck Irritable bowel syndrome Kidney stones Limb weakness Malfunction of gastrostomy tube MRSA (methicillin resistant 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) colonization Muscular dystrophy Non-smoker Non-ST elevation SD (NSTEMI) On home oxygen therapy Otitis interna PEG tube malfunction Pneumonia Pneumonia Pseudomonas pneumonia Shoulder pain Sick sinus syndrome SOB (shortness of breath) Thyroid disease Troponin I above reference range Uses wheelchair Ventilator dependent Home Medications cholecalciferol (vitamin D3) 25 mcg (1,000 unit) tablet 2,000 unit feeding tube DAILY SUPPLEMENT 07/01/14 [History Last Taken 10/30/21] aspirin 81 mg chewable tablet 81 mg feeding tube DAILY@0800 HEART HEATLTH 03/09/15 [History Last Taken 10/30/21] sennosides 8.6 mg tablet 1 tab feeding tube BID PRN Constipation 03/09/15 [History Last Taken 10/30/21] bacitracin 500 unit/gram topical packet 1 applic topical PRN PRN Skin Cleansing 07/05/17 [History Last Taken Unknown] aluminum-mag hydroxide-simethicone 400 mg-400 mg-40 mg/5 mL oral susp 20 ml PO PRN PRN gastric distress 07/07/18 [History Last Taken Unknown] naproxen sodium 220 mg capsule 220 mg G-tube BID PRN PRN Pain 07/07/18 [History Last Taken 10/29/21] cyclobenzaprine 10 mg tablet 10 mg feeding tube BID PRN PRN Spasms 07/10/18 [History Last Taken 10/29/21] dextromethorphan-guaifenesin 5 mg-100 mg/5 mL oral liquid (Child Robitussin Cough-Chest DM) 10 ml feeding tube Q6H PRN Muscle Spasticity 02/11/20 [History Last Taken Unknown] sodium chloride 0.9 % for nebulization 1 ml inhalation Q8H PRN thick secretions 04/10/21 [History Last Taken Unknown] zinc oxide 10 % topical ointment 1 applic topical BID-QID PRN Skin Cleansing 04/10/21 [History Last Taken Unknown] albuterol sulfate 90 mcg/actuation aerosol inhaler (ProAir HFA) 2 puff inhalation TID PRN sob 08/06/21 [History Last Taken Unknown] ferrous sulfate 15 mg iron (75 mg)/mL oral drops (Henry-In-Domonique) 1 ml PO BID 08/13/21 [History Last Taken 10/30/21] guaifenesin 200 mg/5 mL oral liquid 200 mg feeding tube Q4H PRN cough 08/13/21 [History Last Taken Unknown] buspirone 30 mg tablet 30 mg feeding tube BID ANXIETY #180 tabs 09/10/21 [Rx Last Taken 10/30/21] morphine 20 mg/5 mL (4 mg/mL) oral solution 16 mg PO Q4H PRN PRN Pain 09/21/21 [History Last Taken 10/30/21 08:00] nystatin 100,000 unit/gram topical cream 1 applic topical BID PRN redness 09/21/21 [History Last Taken Unknown] glycerin (adult) 1 supp IN BID PRN Constipation 10/30/21 [History Last Taken 10/30/21] glycerin (adult) (Fleet Glycerin (Adult) rectal suppository) 1 supp IN DAILY PRN Constipation 10/30/21 [History Last Taken Unknown] psyllium husk (aspartame) 3.4 gram/5.8 gram oral powder (Metamucil Sugar-Free (aspartame)) 3 g PO TID PRN Constipation 10/30/21 [History Last Taken Unknown] sertraline 20 mg/mL oral concentrate 50 mg feeding tube QHS 10/30/21 [History Last Taken 10/29/21] sodium bicarbonate 1 mEq/mL (8.4 %) intravenous solution See Rx Instructions .Route .COMPLEX #500 mL 12/03/21 [Rx Last Taken Unknown] polyethylene glycol 3350 17 gram oral powder packet (Miralax) 17 g PO BID PRN Constipation #100 ea 01/17/22 [Rx Last Taken Unknown] lisinopril 10 mg tablet 10 mg PO DAILY #90 tabs 04/09/22 [Rx Last Taken Unknown] dicyclomine 10 mg capsule 20 mg PO Q6H PRN PRN abdominal discomfort #30 CAPSULES 05/07/22 [Rx Last Taken Unknown] ondansetron 4 mg disintegrating tablet 8 mg PO Q8H PRN PRN Nausea #20 tabs 05/07/22 [Rx Last Taken Unknown] glycopyrrolate 1 mg tablet 1.5 mg feeding tube BID GI #270 tabs 05/08/22 [Rx Last Taken Unknown] amitriptyline 10 mg tablet 10 mg PO QHS #30 tabs 05/10/22 [Rx Last Taken Unknown] lansoprazole 30 mg delayed release,disintegrating tablet See Rx Instructions .Route .COMPLEX #60 TABLETS 05/17/22 [Rx Last Taken Unknown] sucralfate 100 mg/mL oral suspension 10 ml .Route .COMPLEX #420 mL 05/17/22 [Rx Last Taken Unknown] albuterol sulfate 2.5 mg/3 mL (0.083 %) solution for nebulization 2.5 mg (3 mL) inhalation Q4H PRN PRN Sob &/Or Wheezing #180 mL 05/20/22 [Rx Last Taken Unknown] cephalexin 250 mg/5 mL oral suspension 500 mg (10 mL) feeding tube TID 7 days #210 mL 05/25/22 [Rx Last Taken Unknown] Allergy/AdvReac Type Severity Reaction Status Date / Time No Known Allergies Allergy Verified 05/23/22 07:50 Family History Mother Heart disease Myocardial infarction Arthritis Depression Father Thyroid cancer Myocardial infarction Parkinson disease Arthritis Sister Thyroid cancer Arthritis Surgical History Gastrointestinal tube in situ History of esophagogastroduodenoscopy (EGD) History of hemorrhoidectomy History of release of tendon Presence of cardiac pacemaker Tracheostomy tube present (~2013) Social History Smoking Status: Never smoker second hand exposure: No alcohol intake: never substance use type: does not use caffeine: Yes Type: coffee what type of physical activity do you participate in: none ROS ROS ED Review of Systems ROS Unobtainable: due to mental condition and due to mental status EXAM Physical Exam Const Vital Signs: 05/25/22 09:15 05/25/22 09:28 05/25/22 09:30 Temperature 97.8 F Temperature Source Oral Pulse Rate 89 Respiratory Rate 26 H Respiratory Effort Labored Accessory Muscle Use Respiratory Pattern Gasping Blood Pressure 191/103 H Blood Pressure Mean 132 Pulse Ox 87 100 Oxygen Delivery Method Room Air Mechanical Ventilator Fraction of Inspired Oxygen (FIO2) 05/25/22 09:42 05/25/22 09:30 05/25/22 09:47 Temperature Temperature Source Pulse Rate 92 93 Respiratory Rate 15 14 Respiratory Effort Respiratory Pattern Blood Pressure 152/92 H Blood Pressure Mean 112 Pulse Ox 100 100 Oxygen Delivery Method Room Air Fraction of Inspired Oxygen (FIO2) 100 80 05/25/22 10:09 05/25/22 10:40 05/25/22 12:09 Temperature Temperature Source Pulse Rate 102 H 115 H Respiratory Rate 20 H 17 Respiratory Effort Respiratory Pattern Blood Pressure 122/91 H Blood Pressure Mean 101 Pulse Ox 100 100 98 Oxygen Delivery Method Mechanical Ventilator Fraction of Inspired Oxygen (FIO2) 80 60 05/25/22 11:00 05/25/22 12:00 Temperature Temperature Source Pulse Rate 108 H 100 Respiratory Rate 20 H 20 H Respiratory Effort Respiratory Pattern Blood Pressure 154/102 H 146/111 H Blood Pressure Mean 119 122 Pulse Ox 100 99 Oxygen Delivery Method Mechanical Ventilator Mechanical Ventilator Fraction of Inspired Oxygen (FIO2) Positive well nourished, well developed and obese General Appearance ED: well developed Nutritional Appearance: obese HEENT Reports moist mucous membranes Neck supple and no JVD Resp normal respiratory effort Auscultation: rhonchi Cardio regular rate and regular rhythm GI non-distended Auscultation: normoactive bowel sounds Palpation: soft Neuro Sensorium / Orientation: alert Motor Exam: general weakness MDM MDM MDM Narrative Medical decision making narrative: Patient was suctioned through his tracheostomy tube. Patient was given a DuoNeb aerosol. We will check for infectious versus metabolic etiology. We will check chest x-ray to look for pneumonia and congestive heart failure. We will obtain an EKG to check for cardiac ischemia and dysrhythmia. We will obtain CBC to check for leukocytosis and anemia. We will obtain a comprehensive metabolic profile to check for electrolytes, hepatic function, renal function, and glucose. We will obtain a troponin to check for cardiac ischemia. We will obtain COVID 19 rapid antigen and influenza A and B rapid antigens. We will obtain a urinalysis to check for urinary tract infection. We will check a lactate to check for sepsis. Blood cultures and urine culture will be obtained. Lab Data Lab results narrative: CBC was reviewed. There is a mild leukocytosis of 12.0. Hemoglobin was 17.3. Platelets were within normal limits. Comprehensive metabolic profile was reviewed. BUN was slightly elevated at 24. Creatinine was slightly low at 0.22. Alkaline phosphatase was slightly elevated at 158. AST and ALT were slightly elevated at 47 and 76 respectively. Urinalysis was reviewed. There is a leukocyte esterases of 500 with 25-50 white blood cells. There is 2+ bacteria. Arterial blood gas was reviewed and showed a pH of 7.48 with a bicarb of 19.6. PO2 was 106 and PCO2 was 26.4. PT with INR and PTT were reviewed. These are within normal limits. Lactate was reviewed and was normal at 1.2. Labs: Laboratory Results - last 24 hr 05/25/22 05/25/22 05/25/22 09:57 10:15 10:15 WBC 12.0 H RBC 5.56 Hgb 17.3 H Hct 51.5 MCV 92.6 MCH 31.1 MCHC 33.6 RDW Std Deviation 44.7 H RDW Coeff of Lily 13.1 Plt Count 303 MPV 8.2 Immature Gran % (Auto) 0.400 Neut % (Auto) 75.9 H Lymph % (Auto) 16.6 L Gray % (Auto) 6.3 Eos % (Auto) 0.3 Baso % (Auto) 0.5 Absolute Neuts (auto) 9.1 H Absolute Lymphs (auto) 1.99 Nucleated RBC % 0 PT INR APTT Sodium 136 Potassium 4.1 Chloride 101 Carbon Dioxide 25.0 Anion Gap 10 BUN 24 H Creatinine 0.22 L Estim Creat Clear Calc 352.61 Est GFR (MDRD) Af Amer 571 Est GFR (MDRD) Non-Af 472 BUN/Creatinine Ratio 111.1 H Glucose 124 H Lactic Acid Calcium 10.2 H Total Bilirubin 0.60 AST 47 H ALT 76 H Alkaline Phosphatase 158 H Troponin I High Sens 15 Total Protein 8.6 H Albumin 3.9 Globulin 4.7 H Albumin/Globulin Ratio 0.8 L Urine Color Yellow Urine Clarity Cloudy Urine pH 5.0 Ur Specific [place] 1.025 Urine Protein 30 H Urine Glucose (UA) Normal Urine Ketones 15 H Urine Occult Blood 50 H Urine Nitrite Negative Urine Bilirubin Negative Urine Urobilinogen Normal Ur Leukocyte Esterase 500 H Urine RBC 0-5 SEEN Urine WBC 25-50 SEEN Ur Squamous Epith Cells 0-5 SEEN Urine Bacteria 2+ Urine Mucus 0 SEEN 05/25/22 05/25/22 11:15 11:25 WBC RBC Hgb Hct MCV MCH MCHC RDW Std Deviation RDW Coeff of Lily Plt Count MPV Immature Gran % (Auto) Neut % (Auto) Lymph % (Auto) Gray % (Auto) Eos % (Auto) Baso % (Auto) Absolute Neuts (auto) Absolute Lymphs (auto) Nucleated RBC % PT 13.4 INR 1.1 APTT 35.7 Sodium Potassium Chloride Carbon Dioxide Anion Gap BUN Creatinine Estim Creat Clear Calc Est GFR (MDRD) Af Amer Est GFR (MDRD) Non-Af BUN/Creatinine Ratio Glucose Lactic Acid 1.2 Calcium Total Bilirubin AST ALT Alkaline Phosphatase Troponin I High Sens Total Protein Albumin Globulin Albumin/Globulin Ratio Urine Color Urine Clarity Urine pH Ur Specific [place] Urine Protein Urine Glucose (UA) Urine Ketones Urine Occult Blood Urine Nitrite Urine Bilirubin Urine Urobilinogen Ur Leukocyte Esterase Urine RBC Urine WBC Ur Squamous Epith Cells Urine Bacteria Urine Mucus ABG Data ABG results: ABG 05/25/22 11:15 Specimen Type ART Sample Site L Brach pH 7.48 H Bicarbonate Actual 19.6 L Total CO2 20 Base Excess -4 L O2 Saturation 99 O2 % 60 ABG pCO2 26.4 L ABG pO2 106 H Respiration Rate 15 O2 Delivery Device Adult Vent Vent Mode AC Tidal Volume 500 POC PEEP 5 Radiography Chest X-Ray - ED: 1 View, Read by ED Physician, Read by Radiologist and No Acute Disease Diagnostic Testing: Clinical Impression(s) from Imaging Studies Chest X-Ray 05/25/22 10:35 IMPRESSION: No acute cardiopulmonary abnormality. No interval change. Electronically Signed: Jason Hudson MD at 10:49 EST Reading Location ID and State: [facility] [place] Tel , Service support , Portable 1 view chest x-ray was obtained. On my independent interpretation, lung newell are clear. There is normal cardiac silhouette. Bony thorax is normal. There is no acute process noted. Radiologist also interpreted the x-ray and agrees. EKG Initial EKG: Attestation: I personally reviewed and interpreted this EKG as follows: Interpretation: Paced (98) and LBBB Comments: EKG was interpreted by myself. On my interpretation it shows a paced rhythm with a rate of 98. IN interval was 144 ms. QRS interval was 178 ms. QTc interval was 533 ms. There is extreme right axis deviation at 243. There are nonspecific ST-T wave changes. There is a left bundle branch block pattern noted. This was unchanged compared to previous EKG dated 05/18/2022. Prior EKG tracings: available for review Prior: Unchanged (05/18/2022) Treatment and Re-Evaluation Narrative: Blood cultures and urine cultures were obtained. Patient was given a dose of Rocephin here. Patient is agreeable to go to an extended care facility for further treatment of his infection. Case was discussed with the hospitalist. She will admit the patient to PCU. Patient and spouse understood and were agreeable with the plan. Patient is feeling better on reevaluation. Patient states he still feels like his body is fused. Patient was given a dose of Ativan for this. 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
[2022-05-25] MEDS: Ipratropium/Albuterol Sulfate 3 ML AMPUL.NEB INHALATION ×2 (09:30→19:10)
--- NOTE | 2022-05-25 09:30 | EKG12_ITS ---
Test Reason : SOB Blood Pressure : / mmHG Vent. Rate : 098 BPM Atrial Rate : 098 BPM P-R Int : 144 ms QRS Dur : 178 ms QT Int : 418 ms P-R-T Axes : 030 243 058 degrees QTc Int : 533 ms Normal sinus rhythm Paced rhythm Confirmed by RAMÓN NASH MD ([id number]), continuity editor LUCIANA GARCIA ([id number]) on 05/27/2022 10:44:44 AM Referred By: Confirmed By:RAMÓN NASH MD
[2022-05-25] MEDS: Albuterol 2.5 MG/3 ML VIAL.NEB. INHALATION ×2 (09:45→10:21)
[2022-05-25 10:01] LABS: Mucous, Urine 0 SEEN /hpf (<or=2+)
[2022-05-25 10:03] LABS: Color, Urine Yellow (Yellow); Glucose, Dipstick Normal (Normal); Ketone-Dipstick 15 mg/dl (Negative); Leukocyte Esterase-Dipstick 500 /ul (Negative); Nitrite-Dipstick Negative (Negative); Occult Blood-Urine 50 /ul (Negative); Protein-Dipstick 30 mg/dl (Negative); Specific Gravity, Urine 1.025 (1.002-1.030); Urine Bilirubin Dipstick Negative (Negative); Urine Clarity Cloudy (Clear); Urine Urobilinogen Normal (Normal)
--- NOTE | 2022-05-25 10:20 | ED.RN ---
pt stuck several times for iv. iv obtained. unable to get all of the bloodwork. lab notified to assist.
[2022-05-25 10:26] LABS: Bacteria 2+ /hpf (None Seen); Red Blood Cells-Urine 0-5 SEEN /hpf (0-5); Squamous Epithelial Cells - UA 0-5 SEEN /hpf (0-5); White Blood Cells 25-50 SEEN /hpf (0-5)
[2022-05-25 10:27] LABS: Absolute Lymphocyte Count 1.99 X10^3/uL (0.83-4.51); Absolute Neutrophil Count 9.1 X10^3/uL (2.0-7.7); Basophil# 0.06 X10^3/uL; Basophil% 0.5 % (0-1); Eosinophil# 0.03 X10^3/uL; Eosinophils% 0.3 % (0-5); Hematocrit 51.5 % (40-54); Hemoglobin 17.3 g/dL (13.0-16.5); Lymphocyte # 1.99 X10^3/ul (0.83-4.51); Lymphocyte % 16.6 % (19-41); Mean Corp Hgb Conc 33.6 g/dL (32-36); Mean Corpuscular Hgb 31.1 pg (27.0-32.0); Mean Corpuscular Volume 92.6 fL (80-94); Mean Platelet Vol. 8.2 fl (6.2-12.0); Monocyte# 0.75 X10^3/uL; Monocyte% 6.3 % (0-10); NRBC Flagged by Analyzer 0 % (0-5); Neutrophil # 9.09 X10^3/uL (2.7-7.7); Neutrophil % 75.9 % (47-70); Platelet Count 303 K/mm3 (150-450); RBC Distribution Width CV 13.1 % (11.6-14.6); RBC Distribution Width SD 44.7 fl (35.1-43.9); Red Blood Count 5.56 M/mm3 (4.6-6.2)
--- NOTE | 2022-05-25 10:35 | RAD_ITS ---
EXAM: XR CHEST, 1 VIEW CLINICAL INDICATION: Dyspnea TECHNIQUE: Frontal view of the chest. This report was created using [employer] report generation technology. COMPARISON: XR Chest dated 05/24/2022 FINDINGS: LUNGS AND PLEURAL SPACES: Shallow inspiration. Minimal left pleural effusion versus scarring. No pneumothorax. HEART: Normal heart size. MEDIASTINUM: No mediastinal or hilar mass. BONES/JOINTS: No acute abnormality. SOFT TISSUES: Normal. TUBES, LINES AND DEVICES: Tracheostomy tube remains in satisfactory position. Atrial and ventricular pacemaker wires remain in place. RAD/Chest 1 View (Portable) IMPRESSION: No acute cardiopulmonary abnormality. No interval change. Electronically Signed: Jason Hudson MD at 10:49 EST ,
--- NOTE | 2022-05-25 10:50 | ED.RN ---
called for lab to assist with bloodwork.
[2022-05-25 10:53] LABS: ALB/GLOB Ratio 0.8 RATIO (0.9-2.4); AST(SGOT) 47 U/L (15-37); Alanine Aminotransfer ALT/SGPT 76 U/L (16-61); Albumin, Serum 3.9 g/dL (3.2-5.0); Alkaline Phosphatase 158 U/L (45-117); Anion Gap 10 (5-15); BUN 24 mg/dL (7-18); BUN/Creat Ratio 111.1 RATIO (10-20); Calcium,Total 10.2 mg/dL (8.5-10.1); Chloride 101 mmol/L (98-107); Creatinine, Serum 0.22 mg/dL (0.70-1.30); EST Glomerular Filtration Rate 472 mL/min (>60); Est Glom Filt Rate - Afr Amer 571 mL/min (>60); Globulin 4.7 g/dL (2.2-4.2); Glucose 124 mg/dL (74-106); Potassium 4.1 mmol/L (3.5-5.1); Protein, Total 8.6 g/dL (6.4-8.2); Sodium Level 136 mmol/L (136-145); Troponin-I HS 15 pg/mL (3.0-78.0)
[2022-05-25 11:21] LABS: Base Excess -4 mmol/L (-2 to +2); Bicarbonate 19.6 mmol/L (22-26); Blood Gas Specimen Type ART; FI02 60; Mode AC; O2 Delivery Device Adult Vent; PEEP 5; PO2 106 mmHG (75-100); RR 15; SITE L Brach; SO2 99 % (95-99); Total Carbon Dioxide 20 mmol/L; Vt 500; pCO2 26.4 mmHg (35-45); pH 7.48 (7.35-7.45)
[2022-05-25 11:53] LABS: International Normalized Ratio 1.1; Prothrombin Time (Protime)PT. 13.4 SECONDS (11.7-14.9)
[2022-05-25 11:54] LABS: Partial Thromboplast Time 35.7 Seconds (24.1-36.2)
--- NOTE | 2022-05-25 12:52 | PCM.HP.STD ---
HPI - General General Date of Admission: 05/25/22 Date of Service: 05/25/22 Chief Complaint: Altered mental status - 1 day HPI Narrative DELIA RUIZ, is a 61 M who presents with the above. Patient is quadriplegic, has a PEG tube, uses home vent at night. Patient was seen in the ED at night prior to admission with altered mental status. Found to have acute UTI. He was offered admission. Patient and declined. She brings him back because he is more confused and she is unable to manage him. His vitals on arrival showed blood pressure 191/103, heart rate 89, respiratory 26, temperature 97.8 F, oxygen sat was 87% on room air. He was suctioned in office tracheostomy tube. He was then hooked onto mechanical ventilator on minimal settings for short time. WBC count 12.3, hemoglobin 17.2, platelet count 303. ABG shows respiratory alkalosis. CMP is unremarkable except for slight elevation in his LFTs as well as calcium. UA still remains suggestive of UTI. [facility] Medical History Acute respiratory failure Altered mental status Anemia Anxiety Back pain Back pain Cardiology follow-up encounter Cardiomyopathy Carotid artery calcification Chest pain Chest pain Chronic hypoxemic respiratory failure Chronic low back pain Complete heart block Compression fracture of thoracic spine, non-traumatic Depression Diarrhea Dietary restriction Difficulty balancing Dilated cardiomyopathy Frequent headaches GERD (gastroesophageal reflux disease) Heart disease Hereditary progressive muscular dystrophy History of echocardiogram History of edema History of IBS History of urinary calculi Hypertension Hyponatremia Injury of head and neck Irritable bowel syndrome Kidney stones Limb weakness Malfunction of gastrostomy tube MRSA (methicillin resistant 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) colonization Muscular dystrophy Non-smoker Non-ST elevation NV (NSTEMI) On home oxygen therapy Otitis interna PEG tube malfunction Pneumonia Pneumonia Pseudomonas pneumonia Shoulder pain Sick sinus syndrome SOB (shortness of breath) Thyroid disease Troponin I above reference range Uses wheelchair Ventilator dependent Home Medications cholecalciferol (vitamin D3) 25 mcg (1,000 unit) tablet 2,000 unit feeding tube DAILY SUPPLEMENT 07/01/14 [History Last Taken 10/30/21] aspirin 81 mg chewable tablet 81 mg feeding tube DAILY@0800 HEART HEATLTH 03/09/15 [History Last Taken 10/30/21] sennosides 8.6 mg tablet 1 tab feeding tube BID PRN Constipation 03/09/15 [History Last Taken 10/30/21] bacitracin 500 unit/gram topical packet 1 applic topical PRN PRN Skin Cleansing 07/05/17 [History Last Taken Unknown] aluminum-mag hydroxide-simethicone 400 mg-400 mg-40 mg/5 mL oral susp 20 ml PO PRN PRN gastric distress 07/07/18 [History Last Taken Unknown] naproxen sodium 220 mg capsule 220 mg G-tube BID PRN PRN Pain 07/07/18 [History Last Taken 10/29/21] cyclobenzaprine 10 mg tablet 10 mg feeding tube BID PRN PRN Spasms 07/10/18 [History Last Taken 10/29/21] dextromethorphan-guaifenesin 5 mg-100 mg/5 mL oral liquid (Child Robitussin Cough-Chest DM) 10 ml feeding tube Q6H PRN Muscle Spasticity 02/11/20 [History Last Taken Unknown] sodium chloride 0.9 % for nebulization 1 ml inhalation Q8H PRN thick secretions 04/10/21 [History Last Taken Unknown] zinc oxide 10 % topical ointment 1 applic topical BID-QID PRN Skin Cleansing 04/10/21 [History Last Taken Unknown] albuterol sulfate 90 mcg/actuation aerosol inhaler (ProAir HFA) 2 puff inhalation TID PRN sob 08/06/21 [History Last Taken Unknown] ferrous sulfate 15 mg iron (75 mg)/mL oral drops (Henry-In-Domonique) 1 ml PO BID 08/13/21 [History Last Taken 10/30/21] guaifenesin 200 mg/5 mL oral liquid 200 mg feeding tube Q4H PRN cough 08/13/21 [History Last Taken Unknown] buspirone 30 mg tablet 30 mg feeding tube BID ANXIETY #180 tabs 09/10/21 [Rx Last Taken 10/30/21] morphine 20 mg/5 mL (4 mg/mL) oral solution 16 mg PO Q4H PRN PRN Pain 09/21/21 [History Last Taken 10/30/21 08:00] nystatin 100,000 unit/gram topical cream 1 applic topical BID PRN redness 09/21/21 [History Last Taken Unknown] glycerin (adult) 1 supp ND BID PRN Constipation 10/30/21 [History Last Taken 10/30/21] glycerin (adult) (Fleet Glycerin (Adult) rectal suppository) 1 supp ND DAILY PRN Constipation 10/30/21 [History Last Taken Unknown] psyllium husk (aspartame) 3.4 gram/5.8 gram oral powder (Metamucil Sugar-Free (aspartame)) 3 g PO TID PRN Constipation 10/30/21 [History Last Taken Unknown] sertraline 20 mg/mL oral concentrate 50 mg feeding tube QHS 10/30/21 [History Last Taken 10/29/21] sodium bicarbonate 1 mEq/mL (8.4 %) intravenous solution See Rx Instructions .Route .COMPLEX #500 mL 12/03/21 [Rx Last Taken Unknown] polyethylene glycol 3350 17 gram oral powder packet (Miralax) 17 g PO BID PRN Constipation #100 ea 01/17/22 [Rx Last Taken Unknown] lisinopril 10 mg tablet 10 mg PO DAILY #90 tabs 04/09/22 [Rx Last Taken Unknown] dicyclomine 10 mg capsule 20 mg PO Q6H PRN PRN abdominal discomfort #30 CAPSULES 05/07/22 [Rx Last Taken Unknown] ondansetron 4 mg disintegrating tablet 8 mg PO Q8H PRN PRN Nausea #20 tabs 05/07/22 [Rx Last Taken Unknown] glycopyrrolate 1 mg tablet 1.5 mg feeding tube BID GI #270 tabs 05/08/22 [Rx Last Taken Unknown] amitriptyline 10 mg tablet 10 mg PO QHS #30 tabs 05/10/22 [Rx Last Taken Unknown] lansoprazole 30 mg delayed release,disintegrating tablet See Rx Instructions .Route .COMPLEX #60 TABLETS 05/17/22 [Rx Last Taken Unknown] sucralfate 100 mg/mL oral suspension 10 ml .Route .COMPLEX #420 mL 05/17/22 [Rx Last Taken Unknown] albuterol sulfate 2.5 mg/3 mL (0.083 %) solution for nebulization 2.5 mg (3 mL) inhalation Q4H PRN PRN Sob &/Or Wheezing #180 mL 05/20/22 [Rx Last Taken Unknown] cephalexin 250 mg/5 mL oral suspension 500 mg (10 mL) feeding tube TID 7 days #210 mL 05/25/22 [Rx Last Taken Unknown] Allergy/AdvReac Type Severity Reaction Status Date / Time No Known Allergies Allergy Verified 05/23/22 07:50 Family History Mother Heart disease Myocardial infarction Arthritis Depression Father Thyroid cancer Myocardial infarction Parkinson disease Arthritis Sister Thyroid cancer Arthritis Surgical History Gastrointestinal tube in situ History of esophagogastroduodenoscopy (EGD) History of hemorrhoidectomy History of release of tendon Presence of cardiac pacemaker Tracheostomy tube present (~2013) Social History Smoking Status: Never smoker second hand exposure: No alcohol intake: never substance use type: does not use caffeine: Yes Type: coffee what type of physical activity do you participate in: none ROS Review of Systems ROS Unobtainable: due to mental condition Vital Signs Vital Signs Vital Signs: 05/25/22 09:15 05/25/22 09:28 05/25/22 09:30 Temperature 97.8 F Temperature Source Oral Pulse Rate 89 Respiratory Rate 26 H Respiratory Effort Labored Accessory Muscle Use Respiratory Pattern Gasping Blood Pressure 191/103 H Blood Pressure Mean 132 Pulse Ox 87 100 Oxygen Delivery Method Room Air Mechanical Ventilator Fraction of Inspired Oxygen (FIO2) 05/25/22 09:42 05/25/22 09:30 05/25/22 09:47 Temperature Temperature Source Pulse Rate 92 93 Respiratory Rate 15 14 Respiratory Effort Respiratory Pattern Blood Pressure 152/92 H Blood Pressure Mean 112 Pulse Ox 100 100 Oxygen Delivery Method Room Air Fraction of Inspired Oxygen (FIO2) 100 80 05/25/22 10:09 05/25/22 10:40 05/25/22 12:09 Temperature Temperature Source Pulse Rate 102 H 115 H Respiratory Rate 20 H 17 Respiratory Effort Respiratory Pattern Blood Pressure 122/91 H Blood Pressure Mean 101 Pulse Ox 100 100 98 Oxygen Delivery Method Mechanical Ventilator Fraction of Inspired Oxygen (FIO2) 80 60 Weight Weight: 178.4 kg Body Mass Index (BMI) 58.1 Physical Exam Narrative Physical exam: General: Alert, Oriented x3, Cooperative, on mech ventilator HEENT: Status post tracheostomy Oral: Moist Mucosa Neck: Supple Lungs: Diminished to auscultation Cardiovascular: HS I+II, regular, no murmurs Abdomen: Status post PEG tube, bowel Sounds Present, Soft, Non Tender Extremities: No edema Skin: No rashes, No breakdown Neurological: Quadriplegic Psych/Mental Status: Appropriate Results Lab / Micro Data Result Diagrams: 05/25/22 10:15 05/25/22 10:15 Labs: Laboratory Results - last 24 hr 05/25/22 09:57: Urine Color Yellow, Urine Clarity Cloudy, Urine pH 5.0, Ur Specific [place] 1.025, Urine Protein 30 H, Urine Glucose (UA) Normal, Urine Ketones 15 H, Urine Occult Blood 50 H, Urine Nitrite Negative, Urine Bilirubin Negative, Urine Urobilinogen Normal, Ur Leukocyte Esterase 500 H, Urine RBC 0-5 SEEN, Urine WBC 25-50 SEEN, Ur Squamous Epith Cells 0-5 SEEN, Urine Bacteria 2+, Urine Mucus 0 SEEN 05/25/22 10:15: WBC 12.0 H, RBC 5.56, Hgb 17.3 H, Hct 51.5, MCV 92.6, MCH 31.1, MCHC 33.6, RDW Std Deviation 44.7 H, RDW Coeff of Lily 13.1, Plt Count 303, MPV 8.2, Immature Gran % (Auto) 0.400, Neut % (Auto) 75.9 H, Lymph % (Auto) 16.6 L, Trigg % (Auto) 6.3, Eos % (Auto) 0.3, Baso % (Auto) 0.5, Absolute Neuts (auto) 9.1 H, Absolute Lymphs (auto) 1.99, Nucleated RBC % 0 05/25/22 10:15: Sodium 136, Potassium 4.1, Chloride 101, Carbon Dioxide 25.0, Anion Gap 10, BUN 24 H, Creatinine 0.22 L, Estim Creat Clear Calc 352.61, Est GFR (MDRD) Af Amer 571, Est GFR (MDRD) Non-Af 472, BUN/Creatinine Ratio 111.1 H, Glucose 124 H, Calcium 10.2 H, Total Bilirubin 0.60, AST 47 H, ALT 76 H, Alkaline Phosphatase 158 H, Troponin I High Sens 15, Total Protein 8.6 H, Albumin 3.9, Globulin 4.7 H, Albumin/Globulin Ratio 0.8 L 05/25/22 11:15: PT 13.4, INR 1.1, APTT 35.7 Micro: Microbiology 05/25/22 09:40 Nasal Secretion SARS-CoV-2 & FLU Antigen (Rapid) - Final ABG Data ABG results: ABG 05/25/22 11:15 Specimen Type ART Sample Site L Brach pH 7.48 H Bicarbonate Actual 19.6 L Total CO2 20 Base Excess -4 L O2 Saturation 99 O2 % 60 ABG pCO2 26.4 L ABG pO2 106 H Respiration Rate 15 O2 Delivery Device Adult Vent Vent Mode AC Tidal Volume 500 POC PEEP 5 Radiology Impression Chest X-Ray 05/25/22 10:35 IMPRESSION: No acute cardiopulmonary abnormality. No interval change. Electronically Signed: Jason Hudson MD at 10:49 EST , Assessment & Plan Assessment/Plan (1) Chronic hypoxemic respiratory failure: (2) PEG (percutaneous endoscopic gastrostomy) status: (3) Altered mental status: PLAN: Plan 1. Altered mental status secondary to acute UTI Patient presenting in diagnosed with UTI day prior to admission discharge and antibiotic Admitted to PCU, continue IV ceftriaxone, follow-up urine culture 2. Hypertension, continue lisinopril 3. Status post tracheostomy, continue on home oxygen/home vent 4. Quadriplegia, muscular dystrophy, dysphagia status post PEG tube Continue tube feeds, comic book writer consulted 5. DVT PPx- Heparin SC Charges/Coding Visit Charges Inpatient E&M: 44161 Init Hosp L2
[2022-05-25 12:58] LABS: Lactic Acid 1.2 mmol/L (0.4-1.9)
[2022-05-25] MEDS: Ceftriaxone 1 GM/50 ML BAG IV (13:20)
[2022-05-25] MEDS: LORazepam 2 MG/ML Syringe 0.5 MG IV (13:28)
[2022-05-25] MEDS: Sucralfate 1 GM Tablet GT (16:58)
[2022-05-25] MEDS: morphine (oral solution) 10MG/0.5ML Syringe 16 MG PO (17:09)
[2022-05-25] MEDS: Mag Hydrox/Al Hydrox/Simeth 30 ML UDC 20 ML PO (17:09)
[2022-05-25] MEDS: Naproxen 250 MG Tablet PO (17:12)
--- NOTE | 2022-05-25 18:30 | CM.ED ---
SW Note SW was informed by school photographer patient's family could benefit from resources regarding respite options for patient. MO met with patient's as patient was sleeping. SW introduced herself and role as [facility] Senior Project Leader/Team Lead. SW inquired about patient's recent symptoms and needs. Patient's explained the patient's physical and mental health had been declining recently. Patient's stated they were recently in the hospital due to patient having a UTI. After discharge, patient's explained the patient seems to be hallucinating stating the patient wanted his to call 911 due to his body parts being attached in odd ways. Patient's explained she feels the patient needs more care or will continue to return to the ED with a UTI. Patient's explained she helps patient and there is a home health aide 5-6 days a week. Patient's also reported patient receives services through [facility] and had been given a referral for palliative care by Dr. Yan. Patient's stated the patient is on a vent at night since 2013 and was interested in SNF options. SW explained she would review concerns with patient's MD and discuss her interest in SNF as patient's insurance would require precert before he could go. Patient's voiced understanding. MO met with MD Duarte to review patient, MD states patient will be reviewed for admit into the hospital. MO contacted patient's via phone. Patient's explained the patient had been moved to a room on PCU. MO explained a SW or CM would meet with her Friday to assist with discharge planning. Emotional support provided to patient's . No other needs or concerns voiced at this time. Plan: CM/SW to follow up Friday to assist with discharge planning. Dian Jane SPRING FITTER, [id number]
[2022-05-25] MEDS: busPIRone 15 MG TABLET 30 MG PO (22:07)
[2022-05-25] MEDS: Ferrous Sulfate 300 MG/5 ML UDC 75 MG PO (22:08)
[2022-05-25] MEDS: Heparin Injection (Vial) 5,000 UNIT/ML VIAL 5000 UNIT SC (22:08)
[2022-05-25] MEDS: Amitriptyline 10 MG Tablet PO (22:08)
--- NOTE | 2022-05-25 22:37 | PCM.PN.BLA ---
Progress Note Per patient's request of roxanol 16mg not meeting his pain requirements and asking for Dilaudid will change Roxanol to Dilaudid.
--- NOTE | 2022-05-25 22:38 | NURSING ---
Rt contacted speaking valve placed. pt is requesting Hospice and Dilaudid. This RN explains to pt that Roxonal PO is ordered. Pt continues to request Dilaudid. pt states, it is stronger. pt states, we would not allow an animal to live this way, why is he living like this? This RN expalined to pt that medications/ treatment will be given to make pt comfortable. Pt is being extremely verbally aggressive towards nursing staff. Pt continues to ask, why are we letting in suffer. reassurance provided. Pt is educated regarding medications and treatments being given to PT in order to provided comfort. Medications and treatment are NOT provided to end pt life. Pt continues to complain of severe general body pain and burning in the back of this mouth and in his teeth. This RN explained to pt that physician would be contacted for additional orders. CONTACT AGENT and RT at bedside to repositioned pt using pillows and wedge. contacted regarding pt mental status changes and wishes. [phone]- backline message to physician updating him on pt condition and wishes. new orders entered, physician will stop to see pt regarding code status changes. 2235- states, she is ok with pt being DNR, Nicky explains that she is aware no life saving measures will be provided, no CPR or chest compressions if pt heart should stop.
[2022-05-25] MEDS: HYDROmorphone 2 MG TABLET 4 MG PO (23:35)
[2022-05-26] VITALS (10 sets, daily range): BP systolic 116–133; BP diastolic 83–98; PULSE 22–105; RESP 16–90; TEMP 36.4–36.6; O2SAT 95–100
--- NOTE | 2022-05-26 02:58 | CPS ---
Pt is on home ventilator unit. heated humidity is added.
--- NOTE | 2022-05-26 03:50 | NURSING ---
pt is inquiring about restarting tube feeding, pt is taking Peptamen 83 ml/ hr continuous via pump for 21 hours/ day, water flush every 4 hours. per pt pt tube feeding is not set up with flush bag on pump. while this RN is at bedside pt states to , he wants to and life is a living hell. pt repetitively states to spouse, tube feed stays in his stomach and makes him feel bloated. at this time it is unclear to this RN if pt is oriented. 0406- Rt contacted, pt is trache cuff is deflated by spouse. pt begins speaking rapidly and excessively, pt states, I'm telling the truth, I want to . pt states, how can you watch me suffer like this? pt spouse is visibly upset, support provided.
--- NOTE | 2022-05-26 05:18 | NURSING ---
0500- pt spouse ambulatory to ED exit at this time, states, will be back later in day. support provided. per spouse 3 pt wishes at this time. 1. Do not restart tube feeding 2. Dilaudid 3. pt states, he's sorry for everything that he said. Pt states to this RN, I'm sorry for all the terrible things that I have said. Pt noted talking with vent attached to trach, pt requests warm blanket warm blanket provided, pt then requests for blankets to be placed over pt head, This RN explained that blankets will not be placed on pt head. then pt states, place pillow on my face. RN does not place pillow onto pt face. Charge nurse provided with update.
[2022-05-26] MEDS: Heparin Injection (Vial) 5,000 UNIT/ML VIAL 5000 UNIT SC (05:30)
[2022-05-26] MEDS: Sucralfate 1 GM Tablet GT (05:30)
[2022-05-26] MEDS: HYDROmorphone 1 MG/ML Syringe 2 MG IV ×4 (05:30→22:13)
[2022-05-26] MEDS: 0.9% Saline Lock 10 ML Syringe IV ×4 (05:30→18:58)
[2022-05-26 06:57] LABS: Absolute Lymphocyte Count 2.08 X10^3/uL (0.83-4.51); Absolute Neutrophil Count 10.4 X10^3/uL (2.0-7.7); Basophil# 0.03 X10^3/uL; Basophil% 0.2 % (0-1); Eosinophil# 0.01 X10^3/uL; Eosinophils% 0.1 % (0-5); Hematocrit 49.4 % (40-54); Hemoglobin 16.9 g/dL (13.0-16.5); Lymphocyte # 2.08 X10^3/ul (0.83-4.51); Lymphocyte % 15.5 % (19-41); Mean Corp Hgb Conc 34.2 g/dL (32-36); Mean Corpuscular Hgb 31.1 pg (27.0-32.0); Mean Corpuscular Volume 90.8 fL (80-94); Mean Platelet Vol. 8.4 fl (6.2-12.0); Monocyte# 0.83 X10^3/uL; Monocyte% 6.2 % (0-10); NRBC Flagged by Analyzer 0 % (0-5); Neutrophil # 10.43 X10^3/uL (2.7-7.7); Neutrophil % 77.5 % (47-70); Platelet Count 334 K/mm3 (150-450); RBC Distribution Width CV 13.2 % (11.6-14.6); RBC Distribution Width SD 43.9 fl (35.1-43.9); Red Blood Count 5.44 M/mm3 (4.6-6.2); White Blood Count 13.5 K/mm3 (4.4-11.0)
[2022-05-26] MEDS: Ipratropium/Albuterol Sulfate 3 ML AMPUL.NEB INHALATION ×3 (07:17→15:33)
[2022-05-26 07:41] LABS: ALB/GLOB Ratio 0.8 RATIO (0.9-2.4); AST(SGOT) 43 U/L (15-37); Alanine Aminotransfer ALT/SGPT 65 U/L (16-61); Albumin, Serum 3.3 g/dL (3.2-5.0); Alkaline Phosphatase 139 U/L (45-117); Anion Gap 17 (5-15); BUN 29 mg/dL (7-18); Calcium,Total 9.9 mg/dL (8.5-10.1); Chloride 98 mmol/L (98-107); Globulin 4.4 g/dL (2.2-4.2); Glucose 90 mg/dL (74-106); Potassium 3.9 mmol/L (3.5-5.1); Protein, Total 7.7 g/dL (6.4-8.2); Sodium Level 132 mmol/L (136-145)
[2022-05-26 07:55] LABS: BUN/Creat Ratio 193.3 RATIO (10-20); Creatinine, Serum < 0.15 mg/dL (0.70-1.30); EST Glomerular Filtration Rate 721 mL/min (>60)
[2022-05-26 07:56] LABS: Est Glom Filt Rate - Afr Amer 874 mL/min (>60)
--- NOTE | 2022-05-26 07:59 | PCM.PN.HOSP ---
Subjective Subjective .Follow-up on acute metabolic encephalopathy: Patient was seen and examined. His was at the bedside. Discussed with nursing, patient nausea improved overnight. He told the nursing staff repeatedly that he did not want to leave like this and was ready for hospice. He feels his gut is fused up. Discussed with the , discussed overall plan of care. agrees to hospice. Hospice will be consulted. Objective Data Objective Data Vital Signs: Vital Signs Temp Pulse Resp BP Pulse Ox O2 Del Method O2 Flow Rate 97.7 F L 97 16 126/94 H 98 Mechanical Ventilator 2 05/26/22 07:30 05/26/22 07:30 05/26/22 07:30 05/26/22 07:30 05/26/22 07:30 05/26/22 07:30 05/26/22 07:30 FiO2 50 05/25/22 13:05 Oxygen Flow Rate (L/min) 2 Oxygen Delivery Method Mechanical Ventilator Weight: 76.6 kg Body Mass Index (BMI) 24.9 Intake & Output: Intake and Output for Last 24 Hours 05/24/22 05/25/22 05/26/22 23:59 23:59 23:59 Intake Total 170 / 170 120 / 120 Output Total 745 / 745 50 / 50 Balance -575 / -575 70 / 70 Lab / Micro Data Result Diagrams: 05/26/22 06:28 05/26/22 06:28 Labs: Laboratory Results - last 24 hr 05/25/22 09:57: Urine Color Yellow, Urine Clarity Cloudy, Urine pH 5.0, Ur Specific [place] 1.025, Urine Protein 30 H, Urine Glucose (UA) Normal, Urine Ketones 15 H, Urine Occult Blood 50 H, Urine Nitrite Negative, Urine Bilirubin Negative, Urine Urobilinogen Normal, Ur Leukocyte Esterase 500 H, Urine RBC 0-5 SEEN, Urine WBC 25-50 SEEN, Ur Squamous Epith Cells 0-5 SEEN, Urine Bacteria 2+, Urine Mucus 0 SEEN 05/25/22 10:15: WBC 12.0 H, RBC 5.56, Hgb 17.3 H, Hct 51.5, MCV 92.6, MCH 31.1, MCHC 33.6, RDW Std Deviation 44.7 H, RDW Coeff of Lily 13.1, Plt Count 303, MPV 8.2, Immature Gran % (Auto) 0.400, Neut % (Auto) 75.9 H, Lymph % (Auto) 16.6 L, Page % (Auto) 6.3, Eos % (Auto) 0.3, Baso % (Auto) 0.5, Absolute Neuts (auto) 9.1 H, Absolute Lymphs (auto) 1.99, Nucleated RBC % 0 05/25/22 10:15: Sodium 136, Potassium 4.1, Chloride 101, Carbon Dioxide 25.0, Anion Gap 10, BUN 24 H, Creatinine 0.22 L, Estim Creat Clear Calc 352.61, Est GFR (MDRD) Af Amer 571, Est GFR (MDRD) Non-Af 472, BUN/Creatinine Ratio 111.1 H, Glucose 124 H, Calcium 10.2 H, Total Bilirubin 0.60, AST 47 H, ALT 76 H, Alkaline Phosphatase 158 H, Troponin I High Sens 15, Total Protein 8.6 H, Albumin 3.9, Globulin 4.7 H, Albumin/Globulin Ratio 0.8 L 05/25/22 11:15: PT 13.4, INR 1.1, APTT 35.7 05/25/22 11:25: Lactic Acid 1.2 05/26/22 06:28: WBC 13.5 H, RBC 5.44, Hgb 16.9 H, Hct 49.4, MCV 90.8, MCH 31.1, MCHC 34.2, RDW Std Deviation 43.9, RDW Coeff of Lliy 13.2, Plt Count 334, MPV 8.4, Immature Gran % (Auto) 0.500, Neut % (Auto) 77.5 H, Lymph % (Auto) 15.5 L, Page % (Auto) 6.2, Eos % (Auto) 0.1, Baso % (Auto) 0.2, Absolute Neuts (auto) 10.4 H, Absolute Lymphs (auto) 2.08, Nucleated RBC % 0 05/26/22 06:28: Sodium 132 L, Potassium 3.9, Chloride 98, Carbon Dioxide 17.0 L, Anion Gap 17 H, BUN 29 H, Creatinine < 0.15 L, Estim Creat Clear Calc 517.19, Est GFR (MDRD) Af Amer 874, Est GFR (MDRD) Non-Af 721, BUN/Creatinine Ratio 193.3 H, Glucose 90, Calcium 9.9, Total Bilirubin 0.90, AST 43 H, ALT 65 H, Alkaline Phosphatase 139 H, Total Protein 7.7, Albumin 3.3, Globulin 4.4 H, Albumin/Globulin Ratio 0.8 L Micro: Microbiology 05/25/22 09:40 Nasal Secretion SARS-CoV-2 & FLU Antigen (Rapid) - Final ABG Data ABG results: ABG 05/25/22 11:15 Specimen Type ART Sample Site L Brach pH 7.48 H Bicarbonate Actual 19.6 L Total CO2 20 Base Excess -4 L O2 Saturation 99 O2 % 60 ABG pCO2 26.4 L ABG pO2 106 H Respiration Rate 15 O2 Delivery Device Adult Vent Vent Mode AC Tidal Volume 500 POC PEEP 5 Radiography Diagnostic Testing: Radiology Impression Chest X-Ray 05/25/22 10:35 IMPRESSION: No acute cardiopulmonary abnormality. No interval change. Electronically Signed: Jason Hudson MD at 10:49 EST Reading Location ID and State: [facility] / [place] Tel , Service support , Physical Exam Narrative Physical exam: General: Alert, Oriented x3, Cooperative, on 2L oxygen via trach collar HEENT: Status post tracheostomy Oral: Moist Mucosa Neck: Supple Lungs: Diminished to auscultation Cardiovascular: HS I+II, regular, no murmurs Abdomen: Status post PEG tube, bowel Sounds Present, Soft, Non Tender Extremities: No edema Skin: No rashes, No breakdown Neurological: Quadriplegic Psych/Mental Status: Appropriate Assessment & Plan Assessment/Plan (1) Chronic hypoxemic respiratory failure: (2) PEG (percutaneous endoscopic gastrostomy) status: (3) Altered mental status: PLAN: Plan 1. Altered mental status secondary to acute GPC UTI, appears improved Preliminary urine cultures growing gram-positive organism Continue on IV ceftriaxone 2. Hypertension, continue lisinopril (been refusing) 3. Status post tracheostomy, continue on home oxygen/home vent via trach collar 4. Quadriplegia, muscular dystrophy, dysphagia status post PEG tube Patient refuses tube feeds, wants to be transitioned to hospice I offered IV Reglan and BMX to see if that helps with intestinal motility Continue with pain control Will consult Hospice 5. DVT PPx- Patient refused Heparin SC Disposition: Discharge with Hospice Charges/Coding Visit Charges Inpatient E&M: 65586 Subs Hosp L3
[2022-05-26] MEDS: Metoclopramide 10 MG/2 ML Vial IV ×3 (11:19→22:07)
[2022-05-26] MEDS: 0.9% Normal Saline 1,000 ML 75 ML IV (15:06)
[2022-05-27 00:49] VITALS: BP 122/78; PULSE 84; RESP 16; TEMP 36.5; O2SAT 98
[2022-05-27 02:58] VITALS: BP 110/82; PULSE 84; RESP 16; TEMP 36.8; O2SAT 99
[2022-05-27] MEDS: 0.9% Normal Saline 1,000 ML 75 ML IV (05:00)
[2022-05-27] MEDS: HYDROmorphone 1 MG/ML Syringe 4 MG IV ×2 (05:47→11:03)
[2022-05-27 06:00] VITALS: BP 135/89; PULSE 80; RESP 18; TEMP 36.6; O2SAT 97
[2022-05-27 07:29] VITALS: PULSE 85; RESP 16; O2SAT 98
[2022-05-27] MEDS: Ipratropium/Albuterol Sulfate 3 ML AMPUL.NEB INHALATION ×2 (07:29→12:20)
--- NOTE | 2022-05-27 07:39 | CPS ---
patient currently refusing cough assist. Patient sounds clear and no indication of secretions currently
[2022-05-27] MEDS: 0.9% Saline Lock 10 ML Syringe IV ×2 (11:03→13:30)
[2022-05-27 11:22] VITALS: BP 153/83; PULSE 109; RESP 18; TEMP 36.4; O2SAT 97
--- NOTE | 2022-05-27 11:31 | PCM.DC.SUM ---
Providers Date of Admission: 05/25/22 Date of Discharge: 05/27/22 Primary Care Physician: Dr. Tyesha Latif MD Consultations 05/26/22 09:46 Consult: Hospice / Palliative Care Routine Consulting Provider: [facility] Reason for Consult: Progressive muscular dystrophy EMERGENT Consult: No Notified: Yes Date Notified: 05/26/22 Time Notified: 11:02 Method of Notification: Answering Service Reason For Visit: ALTERED MENTAL STATUS Diagnosis Discharge Diagnosis (1) Chronic hypoxemic respiratory failure: Status: Chronic Code(s): J96.11 - Chronic respiratory failure with hypoxia (2) PEG (percutaneous endoscopic gastrostomy) status: Status: Acute Code(s): Z93.1 - Gastrostomy status Medications at Discharge Home Medications cholecalciferol (vitamin D3) 25 mcg (1,000 unit) tablet 2,000 unit feeding tube DAILY SUPPLEMENT 07/01/14 aspirin 81 mg chewable tablet 81 mg feeding tube DAILY@0800 HEART HEATLTH 03/09/15 sennosides 8.6 mg tablet 1 tab feeding tube BID PRN Constipation 03/09/15 bacitracin 500 unit/gram topical packet 1 applic topical PRN PRN Skin Cleansing 07/05/17 aluminum-mag hydroxide-simethicone 400 mg-400 mg-40 mg/5 mL oral susp 20 ml PO PRN PRN gastric distress 07/07/18 naproxen sodium 220 mg capsule 220 mg G-tube BID PRN PRN Pain 07/07/18 cyclobenzaprine 10 mg tablet 10 mg feeding tube BID PRN PRN Spasms 07/10/18 dextromethorphan-guaifenesin 5 mg-100 mg/5 mL oral liquid (Child Robitussin Cough-Chest DM) 10 ml feeding tube Q6H PRN Muscle Spasticity 02/11/20 sodium chloride 0.9 % for nebulization 1 ml inhalation Q8H PRN thick secretions 04/10/21 zinc oxide 10 % topical ointment 1 applic topical BID-QID PRN Skin Cleansing 04/10/21 albuterol sulfate 90 mcg/actuation aerosol inhaler (ProAir HFA) 2 puff inhalation TID PRN sob 08/06/21 ferrous sulfate 15 mg iron (75 mg)/mL oral drops (Henry-In-Domonique) 1 ml PO BID 08/13/21 guaifenesin 200 mg/5 mL oral liquid 200 mg feeding tube Q4H PRN cough 08/13/21 buspirone 30 mg tablet 30 mg feeding tube BID ANXIETY #180 tabs 09/10/21 morphine 20 mg/5 mL (4 mg/mL) oral solution 16 mg PO Q4H PRN PRN Pain 09/21/21 nystatin 100,000 unit/gram topical cream 1 applic topical BID PRN redness 09/21/21 glycerin (adult) 1 supp [place] BID PRN Constipation 10/30/21 glycerin (adult) (Fleet Glycerin (Adult) rectal suppository) 1 supp [place] DAILY PRN Constipation 10/30/21 psyllium husk (aspartame) 3.4 gram/5.8 gram oral powder (Metamucil Sugar-Free (aspartame)) 3 g PO TID PRN Constipation 10/30/21 sertraline 20 mg/mL oral concentrate 50 mg feeding tube QHS 10/30/21 sodium bicarbonate 1 mEq/mL (8.4 %) intravenous solution See Rx Instructions .Route .COMPLEX #500 mL 12/03/21 polyethylene glycol 3350 17 gram oral powder packet (Miralax) 17 g PO BID PRN Constipation #100 ea 01/17/22 lisinopril 10 mg tablet 10 mg PO DAILY #90 tabs 04/09/22 dicyclomine 10 mg capsule 20 mg PO Q6H PRN PRN abdominal discomfort #30 CAPSULES 05/07/22 ondansetron 4 mg disintegrating tablet 8 mg PO Q8H PRN PRN Nausea #20 tabs 05/07/22 glycopyrrolate 1 mg tablet 1.5 mg feeding tube BID GI #270 tabs 05/08/22 amitriptyline 10 mg tablet 10 mg PO QHS #30 tabs 05/10/22 lansoprazole 30 mg delayed release,disintegrating tablet See Rx Instructions .Route .COMPLEX #60 TABLETS 05/17/22 sucralfate 100 mg/mL oral suspension 10 ml .Route .COMPLEX #420 mL 05/17/22 albuterol sulfate 2.5 mg/3 mL (0.083 %) solution for nebulization 2.5 mg (3 mL) inhalation Q4H PRN PRN Sob &/Or Wheezing #180 mL 05/20/22 Hospital Course Summary of Care Provided Minutes Spent on Discharge: 35 Hospital Course: Patient is a 61-year-old gentleman with history of muscular dystrophy status post trach and PEG admitted with altered mental status. Patient was diagnosed with acute cystitis with Enterococcus. Patient was placed on a monitored bed for subsequent management 1. Acute metabolic encephalopathy secondary to acute cystitis with Enterococcus patient was initially managed with ceftriaxone switched to Unasyn once culture resulted 2. Essential hypertension ? Blood pressure did remain stable 3. Muscular dystrophy ? Status post PEG and trach. Given patient progressive decline family elected for hospice consultation patient was transferred to hospice in the medical facility Physical Exam Narrative GENERAL: Frail looking HEENT: Trach collar in place EYES; Anicteric, Normal Conjunctiva NECK; supple, normal thyroid, RESPIRATORY: Diminished to auscultation CARDIOVASCULAR: Regular S1 S2, GI: Tube in place : No Renal angle tenderness; EXTREMITIES: No edema, no clubbing, Weight / BMI Weight Weight: 76.6 kg Body Mass Index (BMI) 24.9 ABG / Lab / Microbiology Data Result Diagrams: 05/26/22 06:28 05/26/22 06:28 Microbiology: Microbiology 05/25/22 09:57 Urine, Catheterized Urine Culture - Final Enterococcus faecalis 05/25/22 09:40 Nasal Secretion SARS-CoV-2 & FLU Antigen (Rapid) - Final D/C Instructions Discharge Diet: No restrictions Discharge Activity: Return to Normal Activity Call your doctor if you observe: Fever of 101 or Higher, Shortness of breath, Fainting spells and Chest pain Meaningful Use Info Meaningful Use Diagnoses (Choose all that apply): None applicable Discharge Plan Admission Admit Date/Time: 05/25/22 12:41 Attending Provider: Juvencio Webber Primary Care Provider: Tyesha Latif Consulting Providers: Mirtha Porter ; Juvencio Salinas ; Lin Julio ; Kiya Quiñonez ; Chante Mckee THEOLOGY TEACHER ; Alanna Hayes Discharge Orders/Prescriptions Prescriptions: Continued bacitracin 500 unit/gram packet 1 applic TOPICAL PRN PRN (Reason: Skin Cleansing) Chld Robitussin Cough-Chest DM 5-100 mg/5 mL liquid 10 ml feeding tube Q6H PRN (Reason: Muscle Spasticity) zinc oxide 10 % ointment 1 applic topical BID-QID PRN (Reason: Skin Cleansing) sodium chloride 0.9 % solution for nebulization 1 ml inhalation Q8H PRN (Reason: thick secretions) nystatin 100,000 unit/gram cream 1 applic topical BID PRN (Reason: redness) albuterol sulfate [ProAir HFA] 90 mcg/actuation HFA aerosol inhaler 2 puff inhalation TID PRN (Reason: sob) morphine 20 mg/5 mL (4 mg/mL) solution 16 mg PO Q4H PRN PRN (Reason: Pain) sucralfate 100 mg/mL suspension 10 ml .ROUTE .COMPLEX Qty: 420 0RF Rx Instructions: 10 mL twice daily via feeding tube lansoprazole 30 mg tablet,disintegrat, delay rel See Rx Instructions .ROUTE .COMPLEX Qty: 60 11RF Dose Instruction: DISSOLVE 1 TABLET IN WATER AND ADMINISTER THROUGH PEG TUBE ONCE DAILY Rx Instructions: DISSOLVE 1 TABLET IN WATER AND ADMINISTER THROUGH PEG TUBE TWICE DAILY cholecalciferol (vitamin D3) 1,000 UNIT tablet 2,000 unit feeding tube DAILY sennosides 1 TABLET tablet 1 tab feeding tube BID PRN (Reason: Constipation) aspirin 81 MG tablet,chewable 81 mg feeding tube DAILY@0800 alum-mag hydroxide-simeth 30 ML suspension 20 ml PO PRN PRN (Reason: gastric distress) naproxen sodium 220 MG capsule 220 mg G-tube BID PRN PRN (Reason: Pain) cyclobenzaprine 10 MG tablet 10 mg feeding tube BID PRN PRN (Reason: Spasms) guaifenesin 200 mg/5 mL liquid 200 mg feeding tube Q4H PRN (Reason: cough) ferrous sulfate [Henry-In-Domonique] 15 mg iron (75 mg)/mL drops 1 ml PO BID glycerin (adult) Suppository 1 supp [place] BID PRN (Reason: Constipation) glycerin (adult) [Fleet Glycerin (Adult)] Suppository 1 supp [place] DAILY PRN (Reason: Constipation) Metamucil Sugar-Free (aspart) 3.4 gram/5.8 gram Powder 3 g PO TID PRN (Reason: Constipation) sertraline 20 mg/mL concentrate 50 mg feeding tube QHS dicyclomine 10 mg capsule 20 mg PO Q6H PRN PRN (Reason: abdominal discomfort) Qty: 30 0RF ondansetron 4 mg tablet,disintegrating 8 mg PO Q8H PRN PRN (Reason: Nausea) Qty: 20 0RF buspirone 30 mg tablet 30 mg feeding tube BID Qty: 180 3RF sodium bicarbonate 1 mEq/mL (8.4 %) solution See Rx Instructions .ROUTE .COMPLEX Qty: 500 11RF Dose Instruction: COMBINE ONE LANSOPRAZOLE CAPSULE WITH 10 milliliters SODIUM BICARBONATE AND ADMINISTER THROUGH ENTERAL FEED TUBE Rx Instructions: COMBINE ONE LANSOPRAZOLE CAPSULE WITH 10 milliliters SODIUM BICARBONATE AND ADMINISTER THROUGH ENTERAL FEED TUBE polyethylene glycol 3350 [Miralax] 17 gram powder in packet 17 g PO BID PRN (Reason: Constipation) Qty: 100 2RF lisinopril 10 mg tablet 10 mg PO DAILY Qty: 90 1RF glycopyrrolate 1 mg tablet 1.5 mg feeding tube BID Qty: 270 3RF amitriptyline 10 mg tablet 10 mg PO QHS Qty: 30 5RF albuterol sulfate 2.5 mg /3 mL (0.083 %) solution for nebulization 2.5 mg inhalation Q4H PRN PRN (Reason: Sob &/Or Wheezing) Qty: 180 6RF Discontinued cephalexin 250 mg/5 mL suspension for reconstitution 500 mg feeding tube TID 7 Days Qty: 210 0RF Referrals / Follow Up: Tyesha Latif MD [Primary Care Provider] - Disposition Disposition (needs filled in before D/C Order can be placed): Hospice in Medical Facility Charges/Coding Visit Charges Inpatient E&M: 84526 Disch Hosp >30min
[2022-05-27 12:20] VITALS: PULSE 110; RESP 19
[2022-05-27] MEDS: Metoclopramide 10 MG/2 ML Vial IV (13:30)
[2022-05-27] MEDS: HYDROmorphone 1 MG/ML Syringe IV (13:30)
--- NOTE | 2022-05-27 14:16 | NURSING ---
[facility]
== END 2022-05-27 14:03 | disposition hospice, inpatient (51) | DRG 689 ==
LOC: ED 13:11 → PCU 13:32
PROVIDERS: Admitting Provider Internal Medicine; Emergency Provider Emergency Medicine; PCP Internal Medicine; Visit Provider Internal Medicine
DX: N30.00 Acute cystitis without hematuria (principal); G93.41 Metabolic encephalopathy; G82.50 Quadriplegia, unspecified; J96.11 Chronic respiratory failure with hypoxia; Z93.0 Tracheostomy status; G71.00 Muscular dystrophy, unspecified; Z93.1 Gastrostomy status; K58.9 Irritable bowel syndrome, unspecified; I10 Essential (primary) hypertension; D64.9 Anemia, unspecified; Z79.82 Long term (current) use of aspirin; B95.2 Enterococcus as the cause of diseases classified elsewhere
CPT/HCPCS: 31500; 31720; 36415; 36600; 71045; 80053; 81001; 82803; 83605; 84484; 85025; 85610; 85730; 87077; 87086; 87088; 87186; 87428; 93005; 94002; 94640; 94762; 99285; J7030; J7040; A4216; J0696